=== PATIENT | male | born 1935 | race Caucasian/White ===

== ENCOUNTER 2016-07-09 14:55 | Inpatient (IN) | payer OTHER, BC ==
[2016-07-09 15:30] VITALS: BMI 35.2
[2016-07-09] MEDS ORDERED: VANCOMYCIN 1,000 MG in DEXTROSE 5%-WATER - 250 ML IVPB ONE (16:15)
[2016-07-09] MEDS ORDERED: PIPERACILLIN/TAZOB 3.375 GM/50 ML PRE-DOCKED IVPB ONE (16:15)
--- NOTE | 2016-07-09 16:18 | PDOC ---
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 The patient had had some ulcerations around [place] time but symptoms have worsened today as per nursing facility. Allergies: Latex, NKDA PCP: Dr. Callaway <Odalys Kendrick - Last Filed: 07/09/16 17:45> - General History Source: Spouse, Assisted Records, Old Records Exam Limitations: Clinical Condition <Allen Louis - Last Filed: 07/09/16 18:44> - General Chief Complaint: SIRS, Suspected/Possible Stated Complaint: BED SORE/INFECTION Time Seen by Provider: 07/09/16 16:05 Past History <Odalys Kendrick - Last Filed: 07/09/16 17:45> - Past Medical History Anemia: No Asthma: No Cancer: No Cardiac Disorders: Yes (AFib) CVA: Yes (right sided weakness) COPD: Yes CHF: No Dementia: Yes Diabetes: No GI Disorders: Yes (GI bleed) Disorders: Yes (UTI, hematuria) HTN: No Hypercholesterolemia: Yes Liver Disease: No Suicide Attempt (Hx): No Seizures: No Thyroid Disease: No Other medical history: trach vent dependent respitory failure - Surgical History Abdominal Surgery: Yes (RIGHT INGUINAL HERNIA REPAIR) Appendectomy: No Cardiac Surgery: No Cholecystectomy: No Lung Surgery: No Neurologic Surgery: No Orthopedic Surgery: Yes (lt knee replacement, pins in left hip) - Immunization History Td Vaccination: Yes Immunization Up to Date: Yes - Psycho/Social/Smoking Cessation Hx Anxiety: No Suicidal Ideation: No Smoking Status: No Smoking History: Unknown if ever smoked Years of Tobacco Use: 0 Have you smoked in the past 12 months: No Number of Cigarettes Smoked Daily: 0 If you are a former smoker, when did you quit?: 40 years ago Cigars Per Day: 0 Information on smoking cessation initiated: No 'Breaking Loose' booklet given: 06/15/15 Hx Alcohol Use: No Drug/Substance Use Hx: No Substance Use Type: None Hx Substance Use Treatment: No <Allen Louis - Last Filed: 07/09/16 18:44> - Past Medical History Allergies/Adverse Reactions: Allergies Allergy/AdvReac Type Severity Reaction Status Date / Time latex Allergy Verified 07/09/16 15:26 No Known Drug Allergies Allergy Verified 07/09/16 15:26 Home Medications: Ambulatory Orders Ferrous Sulfate 325 mg GT HS 02/27/15 Fludrocortisone Acetate [Florinef -] 0.1 mg GT BID 02/28/15 Acetaminophen [Tylenol .Regular Strength -] 650 mg NR Q4H PRN #0 tablet Scopolamine Hydrobromide [Transderm-Scop -] 1 patch TD Q72H patch.td72 Albuterol 2.5/Ipratropium 0.5 [Duoneb -] 1 neb IH QID 03/20/16 Ascorbic Acid [Vitamin C -] 500 mg GT DAILY 03/20/16 Carbidopa/Levodopa [Carbidopa-Levodopa 25-100 Tab] 1 each GT BID 03/20/16 Metoprolol Tartrate [Lopressor -] 12.5 mg GT TID tablet 03/27/16 Multivitamins [Tab-A-Vit -] 1 tab GT DAILY 04/30/16 Ranitidine [Zantac -] 150 mg GT BID 04/30/16 Furosemide Oral Solution [Lasix Oral Solution -] 40 mg GT BID@0600,1400 udc 01/18 Naph,Mb-Db/K pH,Mbdb [PHOS-NaK PACKET -] 1 packet PEG TID pow 05/12/16 Potassium Chloride Oral Soln [KCl Oral Solution -] 40 meq GT DAILY cup Aa/[place]/Arg/C/Zn/Cu [Lps Critical Care Liquid] 30 ml PO DAILY Donepezil HCl [Aricept -] 10 mg PO DAILY 07/09/16 Lactobacillus Acidophilus [Bacid -] 1 tab PO BID 07/09/16 Loperamide HCl [Loperamide] 2 mg PO Q6H PRN 07/09/16 Mirtazapine [Remeron Soltab -] 15 mg PO DAILY 07/09/16 Warfarin Na [Coumadin -] 7 mg PO DAILY@1800 07/09/16 Review of Systems - Review of Systems Able to Perform ROS?: No (nonverbal) <Odalys Kendrick - Last Filed: 07/09/16 17:45> *Physical Exam - Vital Signs Last Vital Signs Temp Pulse Resp BP Pulse Ox 96.2 F L 68 12 114/72 100 07/09/16 15:27 07/09/16 17:25 07/09/16 15:27 07/09/16 17:25 07/09/16 17:25 - Physical Exam Comments: 07/09/16 17:48 GENERAL: (+) Nonverbal at baseline. Awake and alert, in no acute distress HEAD: No signs of trauma EYES: PERRLA, EOMI, sclera anicteric, conjunctiva clear ENT: (+) Trach and peg Tube clean, dry, intact; Auricles normal inspection, hearing grossly normal, nares patent, Moist mucosa NECK: Normal ROM, supple, no lymphadenopathy, JVD, or masses LUNGS: Breath sounds equal, clear to auscultation bilaterally. No wheezes, and no crackles HEART: Regular rate and rhythm, normal S1 and S2, no murmurs, rubs or gallops ABDOMEN: Soft, nontender, normoactive bowel sounds. No guarding, no rebound. No masses EXTREMITIES: (+) 2+ bilateral lower extremity edema, trace +1 edema bilateral upper extremities; Normal range of motion. No clubbing or cyanosis. No cords, erythema, or tenderness NEUROLOGICAL: Cranial nerves II-XII intact. Normal speech, normal gait. Sensation intact in upper and lower extremities. 5/5 motor strength in upper and lower extremities. No pronator drift. Finger to nose intact. Rapid alternations intact. SKIN: (+) [id number] erythema with central ulceration to the left lateral foot. Warm, Dry, normal turgor, no rashes noted. <Odalys Kendrick - Last Filed: 07/09/16 17:45> - Vital Signs Last Vital Signs Temp Pulse Resp BP Pulse Ox 96.2 F L 66 12 110/64 100 07/09/16 15:27 07/09/16 15:27 07/09/16 15:27 07/09/16 15:27 07/09/16 15:27 <Allen Louis - Last Filed: 07/09/16 18:44> Heart Score/ECG Review #1 ECG reviewed & interpreted by me at: 15:55 07/09/16 16:59 NSR 55 with 1st degree AV block, T wave flat III, no std/tracy, normal axis, normal intervals, QTC 470 msec <Allen Louis - Last Filed: 07/09/16 18:44> ED Treatment Course - LABORATORY CBC & Chemistry Diagram: 07/09/16 16:16 07/09/16 16:16 - ADDITIONAL ORDERS Additional order review: Laboratory Results 07/09/16 07/09/16 07/09/16 16:16 16:16 16:16 INR PTT (Actin FS) Lactic Acid 1.006 C-Reactive Protein 1.5 H Urine Color Yellow Urine Appearance Slcloudy Urine pH 5.0 Ur Specific [place] 1.014 Urine Protein Negative Urine Glucose (UA) Negative Urine Ketones Trace H Urine Blood Negative Urine Nitrite Negative Urine Bilirubin Negative Urine Urobilinogen Negative Ur Leukocyte Esterase 3+ H Urine RBC 6 Urine WBC 71 Ur Epithelial Cells Rare Urine Bacteria Rare Hyaline Casts 3 Urine Yeast Few 07/09/16 16:16 INR 3.08 H D PTT (Actin FS) 44.5 H Lactic Acid C-Reactive Protein Urine Color Urine Appearance Urine pH Ur Specific [place] Urine Protein Urine Glucose (UA) Urine Ketones Urine Blood Urine Nitrite Urine Bilirubin Urine Urobilinogen Ur Leukocyte Esterase Urine RBC Urine WBC Ur Epithelial Cells Urine Bacteria Hyaline Casts Urine Yeast 07/09/16 16:16 RBC 4.17 MCV 93.5 MCHC 31.9 L RDW 14.8 D MPV 9.7 Neutrophils % 65.8 Lymphocytes % 21.4 Monocytes % 7.6 Eosinophils % 4.4 Basophils % 0.8 - Medications Given in the ED: ED Medications Discontinued Medications Generic Name Dose Route Start Last Admin Trade Name Freq PRN Reason Stop Dose Admin Vancomycin HCl 1,000 mg/ 250 mls @ 250 mls/hr 07/09/16 16:15 07/09/16 17:24 Dextrose IVPB 07/09/16 17:14 250 mls/hr ONCE ONE Administration Piperacillin Sod/Tazobactam Sod 3.375 gm 07/09/16 16:15 07/09/16 16:59 Zosyn 3.375gm Ivpb (Pre-Docked) IVPB 07/09/16 16:16 3.375 gm ONCE ONE Administration <ReannabassemOdalys - Last Filed: 07/09/16 17:45> - LABORATORY CBC & Chemistry Diagram: 07/09/16 16:16 07/09/16 16:16 - RADIOLOGY Radiology Studies Ordered: Category Date Time Status CHEST X-RAY PORTABLE* [RAD] Stat Radiology 07/09/16 16:12 Ordered <Allen Louis - Last Filed: 07/09/16 18:44> Medical Decision Making - Medical Decision Making 07/09/16 16:15 A portion of this note was documented by scribe services under my direction. I have reviewed the details of the note, within reason, and agree with the documentation with the following case summary and management plan written by me. Patient treated in the ED. Nursing notes are reviewed and incorporated into the medical decision-making. Vital signs reviewed. Peripheral IV access obtained by the nurse, laboratory studies are drawn and sent, reviewed and interpreted by myself. Vital Signs Temp Pulse Resp BP Pulse Ox 96.2 F L 66 12 110/64 100 07/09/16 15:27 07/09/16 15:27 07/09/16 15:27 07/09/16 15:27 07/09/16 15:27 81 year old male with past medical history of COPD with chronic respiratory failure status post tracheostomy, hyperlipidemia, coronary disease status post stroke with right-sided anaplasia, atrial fibrillation, dementia, Parkinson's [facility] from [facility] for [facility] line placement for a left foot infection - cellulitis (possible osteomyelitis). Patient had had some ulcerations around [place] time but symptoms have worsened. Patient was then sent to the ER for further workup. Adult sepsis protocol initiated. Vanc and zosyn ordered. Will admit the patient for further management. Pt noted to have a temp of 96.2 rectally. Placed on laverne hugger. 07/09/16 18:41 Chest x-ray reviewed. Interval better aeration of the left baseline with residual airspace disease, a small left and minimal right pleural effusion. CBC, BMP 07/09/16 16:16 07/09/16 16:16 CMP Sodium 141 mmol/L (136-145) 07/09/16 16:16 Potassium 3.5 mmol/L (3.5-5.1) 07/09/16 16:16 Chloride 101 mmol/L (98-107) 07/09/16 16:16 Carbon Dioxide 32 mmol/L (21-32) 07/09/16 16:16 Anion Gap 8 (8-16) 07/09/16 16:16 BUN 24 mg/dL (7-18) H D 07/09/16 16:16 Creatinine 0.5 mg/dL (0.7-1.3) L D 07/09/16 16:16 Creat Clearance w eGFR > 60 (>60) 07/09/16 16:16 Random Glucose 98 mg/dL (74-106) 07/09/16 16:16 Lactic Acid 1.006 mmol/L (0.4-2.0) 07/09/16 16:16 Calcium 8.0 mg/dL (8.5-10.1) L 07/09/16 16:16 Total Bilirubin 0.5 mg/dL (0.2-1.0) D 07/09/16 16:16 AST 22 U/L (15-37) D 07/09/16 16:16 ALT 7 U/L (12-78) L D 07/09/16 16:16 Alkaline Phosphatase 82 U/L (45-117) D 07/09/16 16:16 Creatine Kinase 17 IU/L (39-308) L 07/09/16 16:16 Troponin I < 0.02 ng/ml (0.00-0.05) D 07/09/16 16:16 C-Reactive Protein 1.5 MG/DL (0.00-0.3) H 07/09/16 16:16 Total Protein 7.2 g/dl (6.4-8.2) D 07/09/16 16:16 Albumin 2.5 g/dl (3.4-5.0) L D 07/09/16 16:16 Urine Test Results Urine Color Yellow 07/09/16 16:16 Urine Appearance Slcloudy 07/09/16 16:16 Urine pH 5.0 (5.0-8.0) 07/09/16 16:16 Ur Specific [place] 1.014 (1.001-1.035) 07/09/16 16:16 Urine Protein Negative (NEGATIVE) 07/09/16 16:16 Urine Glucose (UA) Negative (NEGATIVE) 07/09/16 16:16 Urine Ketones Trace (NEGATIVE) H 07/09/16 16:16 Urine Blood Negative (NEGATIVE) 07/09/16 16:16 Urine Nitrite Negative (NEGATIVE) 07/09/16 16:16 Urine Bilirubin Negative (NEGATIVE) 07/09/16 16:16 Ur Leukocyte Esterase 3+ (NEGATIVE) H 07/09/16 16:16 Urine RBC 6 /hpf (0-3) 07/09/16 16:16 Urine WBC 71 /hpf (3-5) 07/09/16 16:16 Ur Epithelial Cells Rare /hpf (FEW) 07/09/16 16:16 Urine Bacteria Rare /hpf (NONE SEEN) 07/09/16 16:16 Labs reviewed. Trop negative. UA positive for infection. Microbiology reviewed. Pt received vanc and zosyn. Case discussed with Dr. Rodriguez who requests Dr. Jenkins's group given pt is from [facility]. Case discussed with Dr. Jenkins who accepts the patient to med/surg vent unit. Case discussed in detail with admitting physician including history, physical exam and ancillary studies. Admitting physician has assumed care for the patient, will follow all pending diagnostics and will complete the evaluation and treatment. <Allen Louis - Last Filed: 07/09/16 18:44> *DC/Admit/Observation/Transfer - Attestations Scribe Attestion: 07/09/16 17:50 Documentation prepared by Odalys Kendrick, acting as medical geneticist for Allen Louis MD, MD <Odalys Kendrick - Last Filed: 07/09/16 17:45> - Discharge Dispostion Admit: Yes <Allen Louis - Last Filed: 07/09/16 18:44> Diagnosis at time of Disposition: Foot infection UTI (urinary tract infection) Qualifiers: Urinary tract infection type: site unspecified Hematuria presence: without hematuria Qualified Code(s): N39.0 - Urinary tract infection, site not specified - Discharge Dispostion Condition at time of disposition: Stable - Referrals Referrals: Jerzy Callaway MD [Primary Care Provider] -
[2016-07-09 16:32] LABS: BASOPHIL 0.8 % (0-2.0); EOSINOPHIL 4.4 % (0-4.5); MCH 29.8 pg (25.7-33.7); MCHC 31.9 g/dl (32.0-35.9); MEAN CELL VOLUME 93.5 fl (80-96); MEAN PLT VOLUME 9.7 fl (7.5-11.1); NEUTROPHILS 65.8 % (42.8-82.8); PLATELET COUNT 295 K/MM3 (134-434); RDW 14.8 % (11.9-15.9); WHITE BLOOD COUNT 10.3 K/mm3 (4.0-10.0)
[2016-07-09 16:44] LABS: INR 3.08 (0.82-1.09); PROTHROMBIN TIME (PATIENT) 34.7 SEC (9.98-11.88)
[2016-07-09 16:47] LABS: ACTIVATED PTT 44.5 SECONDS (26.9-34.4)
[2016-07-09] MEDS ORDERED: PIPERACILLIN/TAZOB 3.375 GM 50 ML IVPB ONE (16:53)
[2016-07-09] MEDS ORDERED: VANCOMYCIN 1 GRAM (PRE-DOCKED) 250 ML IVPB ONE (16:53)
[2016-07-09 17:24] LABS: URINE APPEARANCE SLCLOUDY; URINE BILIRUBIN NEGATIVE (NEGATIVE); URINE BLOOD NEGATIVE (NEGATIVE); URINE COLOR YELLOW; URINE GLUCOSE (UA) NEGATIVE (NEGATIVE); URINE KETONE TRACE (NEGATIVE); URINE NITRITE NEGATIVE (NEGATIVE); URINE PROTEIN NEGATIVE (NEGATIVE); URINE UROBILINOGEN NEGATIVE E.U./dl (0.2-1.0)
[2016-07-09 17:28] LABS: URINE LEUK ESTERASE 3+ (NEGATIVE)
[2016-07-09 17:30] LABS: URINE BACTERIA RARE /hpf (NONE SEEN); URINE HYALINE CAST 3 /lpf; URINE RBC 6 /hpf (0-3); URINE WBC 71 /hpf (3-5); YEAST FEW
[2016-07-09] MEDS ORDERED: CARBIDOPA/LEVODOPA 25/100 TABLET (FP) PEG ONE (17:34)
[2016-07-09 18:30] LABS: ALBUMIN 2.5 g/dl (3.4-5.0); ANION GAP 8 (8-16); BILIRUBIN,TOTAL 0.5 mg/dL (0.2-1.0); CO2 32 mmol/L (21-32); CREATININE 0.5 mg/dL (0.7-1.3); GLUCOSE,RANDOM 98 mg/dL (74-106); SGOT/AST 22 U/L (15-37); SGPT/ALT 7 U/L (12-78); TOT PROT 7.2 g/dl (6.4-8.2)
[2016-07-09 18:34] LABS: ALK PHOS 82 U/L (45-117); TROPONIN I < 0.02 ng/ml (0.00-0.05)
[2016-07-09] MEDS ORDERED: LOPERAMIDE HCL 2 MG CAPSULE PO PRN (19:42)
[2016-07-09] MEDS ORDERED: ACETAMINOPHEN 325 MG TABLET (FP) NR PRN (19:42)
[2016-07-09] MEDS ORDERED: LOPERAMIDE HCL 2 MG CAPSULE GT PRN (19:54)
[2016-07-09] MEDS: CARBIDOPA/LEVODOPA 25/100 TABLET (FP) GT SCH (22:49)
[2016-07-09] MEDS: FLUDROCORTISONE ACETATE 0.1 MG TABLET (FP) GT SCH (23:00)
[2016-07-09] MEDS: FERROUS SO4 300 MG/5 ML ORAL SOLN UNIT DOSE CUPS GT SCH (23:00)
[2016-07-09] MEDS: METOPROLOL TARTRATE 25 MG TABLET (FP) GT SCH (23:00)
[2016-07-09] MEDS: LACTOBACILLUS ACIDOPHILUS 1 EACH TAB (FP) GT SCH (23:00)
[2016-07-09] MEDS: RANITIDINE HCL 150 MG TABLET (FP) PO SCH (23:00)
[2016-07-09] MEDS: NAPH,MB-DB/K PH,MBDB POWDER PACKET PEG SCH (23:00)
[2016-07-09] MEDS: SCOPOLAMINE HYDROBROMIDE 1 PATCH PATCH.TD72 TD SCH (23:02)
[2016-07-10] MEDS: ALBUTEROL SO4 2.5/IPRATROPIUM 0.5 INH SOL 3 ML VIAL.NEB. NEB SCH ×5 (00:11→23:21)
[2016-07-10] MEDS ORDERED: PIPERACILLIN/TAZOB 3.375 GM/50 ML PRE-DOCKED IVPB SCH (02:00)
[2016-07-10] MEDS: PIPERACILLIN/TAZOB 3.375 GM/50 ML PRE-DOCKED IVPB SCH ×2 (02:50→09:45)
[2016-07-10] MEDS ORDERED: PT OWN MED DRAWER 7, Y5N ONE ×4 (06:06→22:52)
[2016-07-10] MEDS: NAPH,MB-DB/K PH,MBDB POWDER PACKET PEG SCH ×3 (06:49→22:35)
[2016-07-10] MEDS: FUROSEMIDE 40 MG/5 ML UNIT-DOSE CUP GT SCH ×2 (06:56→15:05)
[2016-07-10] MEDS: METOPROLOL TARTRATE 25 MG TABLET (FP) GT SCH ×3 (06:56→22:35)
--- NOTE | 2016-07-10 08:10 | CONSULT ---
Consultation: REQUESTING PROVIDER: CONSULT REQUEST: We have been asked to medically evaluate this patient for osteomyelitis. HISTORY OF PRESENT ILLNESS: Unable to obtain history from the patient, hence obtained from the chart. 81 year old male was brought in from the long term for PICC line placement to treat possible osteomyelitis of the left foot. Since [employer], patient developed ulceration but it worsened since yesterday and was brought in. Past Medical Hx: COPD with chronic respiratory distress s/p trach, hyperlipidemia, CAD, CVA with right sided hemiplegia, atrial fibrillation, dementia, and parkinsonism Allergies: Latex Surgical Hx: Right Inguinal Hernia repair, Joint replacement (Pins in left hip) , Tracheostomy Hospitalization: Multiple times admission for multiple cause at [facility]. Last admission was on 04/30/2016 for Sepsis secondary to UTI. Social Hx: left smoking 50 years ago Lives in a long term PCP: Dr. Callaway REVIEW OF SYSTEMS: Couldn't be obtained as he is non verbal. PHYSICAL EXAMINATION Vital Signs - 24 hr 07/09/16 07/09/16 07/10/16 21:14 23:37 00:53 Temperature Pulse Rate Pulse Rate [ 70 68 Apical] Respiratory 14 Rate Blood Pressure Blood Pressure 115/60 123/70 [Right Arm] O2 Sat by Pulse 97 98 Oximetry (%) 07/10/16 07/10/16 07/10/16 01:29 03:10 06:00 Temperature 97.1 F L 99.7 F H Pulse Rate 82 81 Pulse Rate [ Apical] Respiratory 14 16 16 Rate Blood Pressure 136/72 139/78 Blood Pressure [Right Arm] O2 Sat by Pulse 98 Oximetry (%) 07/10/16 07:15 Temperature Pulse Rate Pulse Rate [ Apical] Respiratory 12 Rate Blood Pressure Blood Pressure [Right Arm] O2 Sat by Pulse Oximetry (%) GENERAL: Awake, non verbal, doesn't follow all the commands, tracheostomy in place, bauman catheter in place, A/C 12/400/40/5 HEAD: Normal with no signs of trauma. EYES: Pupils equal, round and reactive to light. EARS, NOSE, THROAT: Ears normal NECK: No JVD LUNGS: Breath sounds equal, clear to auscultation bilaterally. No wheeze noted. HEART: Irregularly irregular, tachycardia, S1 and S2 heard, murmur couldn't be appreciated. ABDOMEN: Tube near the umbilicus intact, Soft, nontender, not distended, normoactive bowel sounds, no guarding, no rebound, no masses. No hepatomegaly or splenomegaly. MUSCULOSKELETAL: Stiff during range of motion. UPPER EXTREMITIES: 2+ pulses, warm, well-perfused. Edema + LOWER EXTREMITIES: [id number] black central lesion at the lateral surface of left foot, 2+ pulses, warm, well-perfused. B/L pitting edema, chronic venous stasis. NEUROLOGICAL: Awake, non communicative. Decubiti ulcer: Left Buttock 4cm x 6 cm with opening; Right buttock 3cm x 4 cm with opening, Left lateral foot-4x3cm. PSYCHIATRIC: No eye contact. SKIN: Warm, dry, normal turgor, no rashes or lesions noted. Laboratory Results - last 24 hr 07/10/16 07:03 POC Glucometer 129 Active Medications Generic Name Dose Route Start Last Admin Trade Name Freq PRN Reason Stop Dose Admin Acetaminophen 650 mg 07/09/16 19:42 Tylenol - NR Q4H PRN PAIN 6-10 Albuterol/Ipratropium 1 amp 07/10/16 00:00 07/10/16 06:23 Duoneb - NEB 1 amp QIDR EMMANUEL Administration Ascorbic Acid 500 mg 07/10/16 10:00 Vitamin C - GT DAILY EMMANUEL Carbidopa/Levodopa 1 each 07/09/16 22:00 07/09/16 22:49 Sinemet 25/100 - GT Not Given BID EMMANUEL Donepezil HCl 10 mg 07/10/16 10:00 Aricept - GT DAILY EMMANUEL Ferrous Sulfate 300 mg 07/09/16 22:00 07/09/16 23:00 Feosol GT 300 mg HS EMMANUEL Administration Fludrocortisone Acetate 0.1 mg 07/09/16 22:00 07/09/16 23:00 Florinef - GT 0.1 mg BID EMAMNUEL Administration Furosemide 40 mg 07/10/16 06:00 07/10/16 06:56 Lasix Oral Solution - GT 40 mg BID@0600,1400 EMMANUEL Administration Lactobacillus Acidophilus 1 tab 07/09/16 22:00 07/09/16 23:00 Bacid - GT 1 tab BID EMMANUEL Administration Loperamide HCl 2 mg 07/09/16 19:54 Imodium - GT Q6H PRN DIARRHEA Metoprolol Tartrate 12.5 mg 07/09/16 22:00 07/10/16 06:56 Lopressor - GT 12.5 mg TID EMMANUEL Administration Mirtazapine 15 mg 07/10/16 22:00 Remeron - GT HS EMMANUEL Multivitamins/Minerals/Vitamin C 1 tab 07/10/16 10:00 Tab-A-Vit - PO DAILY EMMANUEL Piperacillin Sod/Tazobactam Sod 3.375 gm 07/10/16 02:00 Zosyn 3.375gm Ivpb (Pre-Docked) IVPB Q8H-IV EMMANUEL Piperacillin Sod/Tazobactam Sod 3.375 gm 07/10/16 02:00 07/10/16 02:50 Zosyn 3.375gm Ivpb (Pre-Docked) IVPB 07/10/16 10:01 3.375 gm Q8H-IV EMMANUEL Administration Potassium Chloride 40 meq 07/10/16 10:00 Kcl Oral Solution - GT DAILY EMMANUEL Potassium Phos/Sodium Phos 1 packet 07/09/16 22:00 07/10/16 06:49 Phos-Nak Packet - PEG 1 packet TID EMMANUEL Administration Ranitidine HCl 150 mg 07/09/16 22:00 07/09/16 23:00 Zantac - PO 150 mg BID EMMANUEL Administration Scopolamine HBr 1 patch 07/09/16 22:00 07/09/16 23:02 Transderm-Scop - TD 1 patch Q72H EMMANUEL Administration Warfarin Sodium 5 mg 07/11/16 18:00 Coumadin - PO DAILY@1800 EMMANUEL ASSESSMENT/PLAN: 81 year old male with significant past medical hx of COPD with chronic respiratory distress s/p trach, hyperlipidemia, CAD, CVA with right sided hemiplegia, atrial fibrillation, dementia, and parkinsonism was brought in from the long term for PICC line placement to treat possible osteomyelitis of the left foot. # Possible osteomyelitis of left foot On Examination: left foot [id number] black central lesion at the lateral surface of left foot Tem-99 F One dose of Vancomycin and Zosyn given in the ED. IV Zosyn and Vancomycin to be continued Vascular surgery consult appreciated. Previously patient has been positive for: Acinetobacter/Beta Lactam Step- Proteus mirabilis/E. faecalis- 03/20/2016 Pseudomonas 2015. Case seen and discussed with Dr. Parker. Thank you for the consultative opportunity. Visit type - Emergency Visit Emergency Visit: Yes ED Registration Date: 07/09/16 Care time: The patient presented to the Emergency Department on the above date and was hospitalized for further evaluation of their emergent condition. - New Patient This patient is new to me today: Yes Date on this admission: 07/10/16 - Critical Care Critical Care patient: No
[2016-07-10 08:24] LABS: BASOPHIL 0.6 % (0-2.0); EOSINOPHIL 3.1 % (0-4.5); MCH 30.9 pg (25.7-33.7); MCHC 33.2 g/dl (32.0-35.9); MEAN CELL VOLUME 93.1 fl (80-96); MEAN PLT VOLUME 9.5 fl (7.5-11.1); NEUTROPHILS 74.9 % (42.8-82.8); PLATELET COUNT 268 K/MM3 (134-434); RDW 14.4 % (11.9-15.9); WHITE BLOOD COUNT 13.9 K/mm3 (4.0-10.0)
[2016-07-10 08:53] LABS: PROTHROMBIN TIME (PATIENT) 33.7 SEC (9.98-11.88)
[2016-07-10 09:09] LABS: ALBUMIN 2.3 g/dl (3.4-5.0); ALK PHOS 77 U/L (45-117); ANION GAP 7 (8-16); BILIRUBIN,TOTAL 0.5 mg/dL (0.2-1.0); CALCIUM 8.4 mg/dL (8.5-10.1); CO2 34 mmol/L (21-32); CREATININE 0.6 mg/dL (0.7-1.3); GLUCOSE,RANDOM 124 mg/dL (74-106); MAGNESIUM 2.2 mg/dL (1.8-2.4); SGOT/AST 20 U/L (15-37); SGPT/ALT 14 U/L (12-78); TOT PROT 6.6 g/dl (6.4-8.2)
[2016-07-10] MEDS: FLUDROCORTISONE ACETATE 0.1 MG TABLET (FP) GT SCH ×2 (09:30→22:34)
[2016-07-10] MEDS: CARBIDOPA/LEVODOPA 25/100 TABLET (FP) GT SCH ×2 (09:31→22:35)
[2016-07-10] MEDS: RANITIDINE HCL 150 MG TABLET (FP) PO SCH ×2 (09:31→22:35)
[2016-07-10] MEDS: DONEPEZIL HCL 10 MG TABLET (FP) GT SCH (09:31)
[2016-07-10] MEDS: LACTOBACILLUS ACIDOPHILUS 1 EACH TAB (FP) GT SCH ×2 (09:32→22:34)
[2016-07-10] MEDS: ASCORBIC ACID 500 MG TABLET (FP) GT SCH (09:35)
[2016-07-10] MEDS: MULTIVITAMINS (DAILY MVI) TABLET (FP) PO SCH (09:35)
[2016-07-10] MEDS ORDERED: POTASSIUM CHLORIDE 40 MEQ/30 ML UNIT DOSE CUP GT SCH ×2 (10:00→12:37)
--- NOTE | 2016-07-10 11:47 | PN ---
Progress Note (short form) - Note Progress Note: Vascular Surgery Pt seen and examined. Well known from [facility]. Has a left plantar ulcer for over 6 months. Has been on santyl but is not getting better. The wound probes down to bone. Could be osteomyleltis. Can empirically treat via picc for 6 weeks for osteo. Will await ID imput. Gutierrez Rosario DO
[2016-07-10] MEDS: COLLAGENASE CLOSTRIDIUM HIST. 30 GRAMS TUBE TP SCH ×2 (12:00→17:45)
--- NOTE | 2016-07-10 12:36 | HP ---
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 The patient had had some ulcerations around [place] time but symptoms have worsened today as per nursing facility. Allergies: Latex, NKDA PCP: Dr. 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, Parkinson's Cardiovascular: Yes: AFIB, CAD, Hyperlipdemia Pulmonary: Yes: COPD Gastrointestinal: Yes: GI Bleed Renal/: Yes: BPH Heme/Onc: Yes: Other (DVT s/p Filter) Infectious Disease: Yes: Other (, aspiration pneumonia in the past) Musculoskeletal: Yes: Hemiplegia - Past Surgical History Past Surgical History: Yes: Hernia Repair (right inguinal hernia repair), Joint Replacement (pins in left hip) - Smoking History Smoking history: Unknown if ever smoked Have you smoked in the past 12 months: No Aproximately how many cigarettes per day: 0 If you are a former smoker, when did you quit?: 40 years ago - Alcohol/Substance Use Hx Alcohol Use: No - Social History ADL: Support Services (has home health aid) 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 History of Recent Travel: No Home Medications - Allergies Allergies/Adverse Reactions: Allergies Allergy/AdvReac Type Severity Reaction Status Date / Time latex Allergy Verified 07/09/16 15:26 No Known Drug Allergies Allergy Verified 07/09/16 15:26 - Home Medications Home Medications: Ambulatory Orders Ferrous Sulfate 325 mg GT HS 02/27/15 Fludrocortisone Acetate [Florinef -] 0.1 mg GT BID 02/28/15 Acetaminophen [Tylenol .Regular Strength -] 650 mg NR Q4H PRN #0 tablet Scopolamine Hydrobromide [Transderm-Scop -] 1 patch TD Q72H patch.td72 Albuterol 2.5/Ipratropium 0.5 [Duoneb -] 1 neb IH QID 03/20/16 Ascorbic Acid [Vitamin C -] 500 mg GT DAILY 03/20/16 Carbidopa/Levodopa [Carbidopa-Levodopa 25-100 Tab] 1 each GT BID 03/20/16 Metoprolol Tartrate [Lopressor -] 12.5 mg GT TID tablet 03/27/16 Multivitamins [Tab-A-Vit -] 1 tab GT DAILY 04/30/16 Ranitidine [Zantac -] 150 mg GT BID 04/30/16 Furosemide Oral Solution [Lasix Oral Solution -] 40 mg GT BID@0600,1400 udc 01/18 Naph,Mb-Db/K pH,Mbdb [PHOS-NaK PACKET -] 1 packet PEG TID pow 05/12/16 Potassium Chloride Oral Soln [KCl Oral Solution -] 40 meq GT DAILY cup Aa/[place] Shar&[place]/Arg/C/Zn/Cu [Lps Critical Care Liquid] 30 ml PO DAILY Donepezil HCl [Aricept -] 10 mg PO DAILY 07/09/16 Lactobacillus Acidophilus [Bacid -] 1 tab PO BID 07/09/16 Loperamide HCl [Loperamide] 2 mg PO Q6H PRN 07/09/16 Mirtazapine [Remeron Soltab -] 15 mg PO DAILY 07/09/16 Warfarin Na [Coumadin -] 7 mg PO DAILY@1800 07/09/16 Review of Systems Unable to obtain ROS, reason: nonverbal Physical Examination Vital Signs: Vital Signs Temperature 99 F 07/10/16 09:00 Pulse Rate 75 07/10/16 10:39 Respiratory Rate 12 07/10/16 10:39 Blood Pressure 104/65 07/10/16 09:00 O2 Sat by Pulse Oximetry (%) 97 07/10/16 10:39 Constitutional: Yes: Calm Neck: Yes: Trachea Midline Cardiovascular: Yes: Regular Rate and Rhythm, S1, S2 Respiratory: Yes: Diminished, Mechanically Ventilated Gastrointestinal: Yes: Normal Bowel Sounds, Soft, Other (g tube) Renal/: Yes: Olson Present Wound/Incision: Yes: Other (left foot wound) Neurological: Yes: Other (no verbal) Labs: CBC, BMP 07/10/16 06:45 07/10/16 06:45 Imaging - Results Chest X-ray: Report Reviewed Problem List - Problems (1) Foot ulcer Assessment/Plan: seen by wound care team iv abx possible six weeks picc line check ESR ad CRP ID eval wound culture Code(s): L97.509 - NON-PRESSURE CHRONIC ULCER OTH PRT UNSP FOOT W UNSP SEVERITY (2) Foot infection Assessment/Plan: see above Code(s): L08.9 - LOCAL INFECTION OF THE SKIN AND SUBCUTANEOUS TISSUE, UNSP (3) Chronic respiratory failure Assessment/Plan: vent support Code(s): J96.10 - CHRONIC RESPIRATORY FAILURE, UNSP W HYPOXIA OR HYPERCAPNIA Qualifiers: Respiratory failure complication: hypoxia Qualified Code(s): J96.11 - Chronic respiratory failure with hypoxia (4) Dysphagia Assessment/Plan: feeding via peg Code(s): R13.10 - DYSPHAGIA, UNSPECIFIED (5) A-fib Code(s): I48.91 - UNSPECIFIED ATRIAL FIBRILLATION Qualifiers: Atrial fibrillation type: chronic Qualified Code(s): I48.2 - Chronic atrial fibrillation
--- NOTE | 2016-07-10 14:00 | CONSULT ---
Consult Consult Specialty:: PULM/CCM Referred by:: SALUD Reason for Consultation:: Chronic respiratory failure - History of Present Illness Chief Complaint: fever History of Present Illness: 81 M, Chronic respiratory failure s/p tracheostomy, hyperlipidemia, coronary disease, COPD , s/p CVA with right-sided weakness, atrial fibrillation, dementia , and Parkinson's. Admitted via the ER due for further left foot infection. Patient is on chronic respiratory support. He is currently on AC mode of vent 40% FiO2. Saturation is 97%. 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: 40 years ago - Social History Usual Living Arrangement: Jail ADL: Support Services (has home health aid) 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 History of Recent Travel: No Home Medications - Allergies Allergies/Adverse Reactions: Allergies Allergy/AdvReac Type Severity Reaction Status Date / Time latex Allergy Verified 07/09/16 15:26 No Known Drug Allergies Allergy Verified 07/09/16 15:26 - Home Medications Home Medications: Ambulatory Orders Ferrous Sulfate 325 mg GT HS 02/27/15 Fludrocortisone Acetate [Florinef -] 0.1 mg GT BID 02/28/15 Acetaminophen [Tylenol .Regular Strength -] 650 mg NR Q4H PRN #0 tablet Scopolamine Hydrobromide [Transderm-Scop -] 1 patch TD Q72H patch.td72 Albuterol 2.5/Ipratropium 0.5 [Duoneb -] 1 neb IH QID 03/20/16 Ascorbic Acid [Vitamin C -] 500 mg GT DAILY 03/20/16 Carbidopa/Levodopa [Carbidopa-Levodopa 25-100 Tab] 1 each GT BID 03/20/16 Metoprolol Tartrate [Lopressor -] 12.5 mg GT TID tablet 03/27/16 Multivitamins [Tab-A-Vit -] 1 tab GT DAILY 04/30/16 Ranitidine [Zantac -] 150 mg GT BID 04/30/16 Furosemide Oral Solution [Lasix Oral Solution -] 40 mg GT BID@0600,1400 udc 01/18 Naph,Mb-Db/K pH,Mbdb [PHOS-NaK PACKET -] 1 packet PEG TID pow 05/12/16 Potassium Chloride Oral Soln [KCl Oral Solution -] 40 meq GT DAILY cup Aa/[place]/Arg/C/Zn/Cu [Lps Critical Care Liquid] 30 ml PO DAILY Donepezil HCl [Aricept -] 10 mg PO DAILY 07/09/16 Lactobacillus Acidophilus [Bacid -] 1 tab PO BID 07/09/16 Loperamide HCl [Loperamide] 2 mg PO Q6H PRN 07/09/16 Mirtazapine [Remeron Soltab -] 15 mg PO DAILY 07/09/16 Warfarin Na [Coumadin -] 7 mg PO DAILY@1800 07/09/16 Review of Systems Unable to obtain ROS, reason: not able to provide Physical Exam Vital Sings: Vital Signs Temperature 99 F 07/10/16 09:00 Pulse Rate 75 07/10/16 10:39 Respiratory Rate 12 07/10/16 10:39 Blood Pressure 104/65 07/10/16 09:00 O2 Sat by Pulse Oximetry (%) 97 07/10/16 10:39 Constitutional: Yes: No Distress, Other (vented) Eyes: Yes: Conjunctiva Clear, EOM Intact HENT: Yes: Atraumatic Neck: Yes: Trachea Midline, Other (Trached ) Cardiovascular: Yes: Pulse Irregular Respiratory: Yes: Diminished, Dullness, Mechanically Ventilated. No: Accessory Muscle Use, Rales, Stridor, Wheezes ...Inspection: Yes: WNL ...Clubbing: No Gastrointestinal: Yes: Normal Bowel Sounds, Soft Musculoskeletal: Yes: WNL Extremities: Yes: Other (LLL ulcer) Edema: Yes Peripheral Pulses WNL: Yes Integumentary: Yes: Pressure Ulcer, Venous Stasis Changes Neurological: Yes: Other (non-verbal) Labs: CBC, BMP 07/10/16 06:45 07/10/16 06:45 Imaging - Results Chest X-ray: Report Reviewed, Image Reviewed Problem List - Problems (1) Chronic osteomyelitis Code(s): M86.60 - OTHER CHRONIC OSTEOMYELITIS, UNSPECIFIED SITE (2) Foot infection Code(s): L08.9 - LOCAL INFECTION OF THE SKIN AND SUBCUTANEOUS TISSUE, UNSP (3) Foot ulcer Code(s): L97.509 - NON-PRESSURE CHRONIC ULCER OTH PRT UNSP FOOT W UNSP SEVERITY (4) A-fib Code(s): I48.91 - UNSPECIFIED ATRIAL FIBRILLATION Qualifiers: Atrial fibrillation type: chronic Qualified Code(s): I48.2 - Chronic atrial fibrillation (5) CHF (congestive heart failure) Code(s): I50.9 - HEART FAILURE, UNSPECIFIED (6) Chronic atrial fibrillation Code(s): I48.2 - CHRONIC ATRIAL FIBRILLATION (7) Chronic respiratory failure Code(s): J96.10 - CHRONIC RESPIRATORY FAILURE, UNSP W HYPOXIA OR HYPERCAPNIA Qualifiers: Respiratory failure complication: hypoxia Qualified Code(s): J96.11 - Chronic respiratory failure with hypoxia (8) Dementia Code(s): F03.90 - UNSPECIFIED DEMENTIA WITHOUT BEHAVIORAL DISTURBANCE Qualifiers: Dementia type: Parkinson's disease Dementia behavioral disturbance: with behavioral disturbance Qualified Code(s): G20 - Parkinson's disease; F02.81 - Dementia in other diseases classified elsewhere with behavioral disturbance (9) Hyperlipemia Code(s): E78.5 - HYPERLIPIDEMIA, UNSPECIFIED (10) Leg swelling Code(s): M79.89 - OTHER SPECIFIED SOFT TISSUE DISORDERS (11) Parkinson disease Code(s): G20 - PARKINSON'S DISEASE (12) Pressure ulcer Code(s): L89.90 - PRESSURE ULCER OF UNSPECIFIED SITE, UNSPECIFIED STAGE Qualifiers: Pressure ulcer stage: stage II Qualified Code(s): L89.92 - Pressure ulcer of unspecified site, stage 2 (13) Venous insufficiency Code(s): I87.2 - VENOUS INSUFFICIENCY (CHRONIC) (PERIPHERAL) (14) Ventilator dependent Code(s): Z99.11 - DEPENDENCE ON RESPIRATOR [VENTILATOR] STATUS (15) Pleural effusion Code(s): J90 - PLEURAL EFFUSION, NOT ELSEWHERE CLASSIFIED Assessment/Plan PLAN: AC Mode of vent 40% FiO2 Wound care per surgery ABX Per ID Not a candidate for wean VTE prophylaxis Will follow Thank you. Dr Fernandes
--- NOTE | 2016-07-10 14:07 | PN ---
Progress Note (short form) - Note Progress Note: ID Full noted dictated and reviewed with housestaff Selected Entries 07/10/16 07/10/16 09:00 10:39 Temperature 99 F Pulse Rate 75 Respiratory 12 Rate Blood Pressure 104/65 Plantar ulcer probed down to bone necrotic eschar Microbiology Laboratory Tests 07/09/16 07/10/16 07/10/16 16:10 06:45 06:45 WBC 13.9 H D Hgb 12.3 Plt Count 268 ESR 72 H BUN 21 H Creatinine 0.6 L Creat Clearance w eGFR > 60 Assessment Chronic osteomyelitis down to bone Plan Will start IV antibiotics Vanco and Zosyn CRP Xray foot [address] Rosario to "unroof" necrotic eschar and deep wound culture Keith KHAN Problem List - Problems (1) Chronic osteomyelitis Code(s): M86.60 - OTHER CHRONIC OSTEOMYELITIS, UNSPECIFIED SITE
[2016-07-10] MEDS: VANCOMYCIN 1,500 MG in DEXTROSE 5%-WATER - 500 ML IVPB SCH ×2 (16:00→18:35)
--- NOTE | 2016-07-10 16:33 | EKG ---
Test Reason : Blood Pressure : / mmHG Vent. Rate : 055 BPM Atrial Rate : 055 BPM P-R Int : 242 ms QRS Dur : 102 ms QT Int : 492 ms P-R-T Axes : 058 028 023 degrees QTc Int : 470 ms SINUS BRADYCARDIA WITH 1ST DEGREE A-V BLOCK OTHERWISE NORMAL ECG WHEN COMPARED WITH ECG OF 01-MAY-2016 09:31, SINUS RHYTHM HAS REPLACED ATRIAL FIBRILLATION VENT. RATE HAS DECREASED BY 60 BPM NON-SPECIFIC CHANGE IN ST SEGMENT IN LATERAL LEADS NONSPECIFIC T WAVE ABNORMALITY, IMPROVED IN INFERIOR LEADS NONSPECIFIC T WAVE ABNORMALITY NO LONGER EVIDENT IN ANTEROLATERAL LEADS Confirmed by REGINA SANDERSON MD ([id number]) on 07/10/2016 4:32:39 PM Referred By: Confirmed By:REGINA SANDERSON MD
[2016-07-10] MEDS: PIPERACILLIN/TAZOB 4.5 GM/100 ML PRE-DOCKED IVPB SCH (17:12)
[2016-07-10] MEDS: FERROUS SO4 300 MG/5 ML ORAL SOLN UNIT DOSE CUPS GT SCH (22:34)
[2016-07-10] MEDS: MIRTAZAPINE 15 MG TABLET (FP) GT SCH (22:35)
[2016-07-11] MEDS: PIPERACILLIN/TAZOB 4.5 GM/100 ML PRE-DOCKED IVPB SCH ×3 (01:52→18:26)
[2016-07-11] MEDS: ALBUTEROL SO4 2.5/IPRATROPIUM 0.5 INH SOL 3 ML VIAL.NEB. NEB SCH ×4 (06:48→23:30)
[2016-07-11] MEDS ORDERED: PT OWN MED DRAWER 7, Y5N ONE ×7 (06:59→23:07)
[2016-07-11] MEDS: METOPROLOL TARTRATE 25 MG TABLET (FP) GT SCH ×3 (07:00→23:35)
[2016-07-11] MEDS: FUROSEMIDE 40 MG/5 ML UNIT-DOSE CUP GT SCH ×2 (07:00→14:28)
[2016-07-11] MEDS: NAPH,MB-DB/K PH,MBDB POWDER PACKET PEG SCH ×3 (07:00→23:04)
[2016-07-11 07:47] LABS: BASOPHIL 0.6 % (0-2.0); EOSINOPHIL 6.5 % (0-4.5); MCH 31.2 pg (25.7-33.7); MCHC 33.7 g/dl (32.0-35.9); MEAN CELL VOLUME 92.5 fl (80-96); MEAN PLT VOLUME 9.5 fl (7.5-11.1); NEUTROPHILS 58.1 % (42.8-82.8); PLATELET COUNT 231 K/MM3 (134-434); RDW 14.5 % (11.9-15.9); WHITE BLOOD COUNT 10.5 K/mm3 (4.0-10.0)
[2016-07-11 07:49] LABS: INR 3.27 (0.82-1.09); PROTHROMBIN TIME (PATIENT) 36.9 SEC (9.98-11.88)
[2016-07-11 08:31] LABS: BILIRUBIN,TOTAL 0.4 mg/dL (0.2-1.0); CREATININE 0.6 mg/dL (0.7-1.3); GLUCOSE,RANDOM 101 mg/dL (74-106); TOT PROT 6.2 g/dl (6.4-8.2)
[2016-07-11 08:32] LABS: CALCIUM 7.8 mg/dL (8.5-10.1)
[2016-07-11 08:54] LABS: C-REACTIVE PROTEIN 3.6 MG/DL (0.00-0.3)
[2016-07-11 08:55] LABS: ANION GAP 7 (8-16)
[2016-07-11 08:58] LABS: ALBUMIN 2.2 g/dl (3.4-5.0); ALK PHOS 68 U/L (45-117); CO2 33 mmol/L (21-32); SGOT/AST 15 U/L (15-37); SGPT/ALT 13 U/L (12-78)
[2016-07-11] MEDS: COLLAGENASE CLOSTRIDIUM HIST. 30 GRAMS TUBE TP SCH (10:11)
[2016-07-11] MEDS: FLUDROCORTISONE ACETATE 0.1 MG TABLET (FP) GT SCH ×2 (10:11→23:08)
[2016-07-11] MEDS: LACTOBACILLUS ACIDOPHILUS 1 EACH TAB (FP) GT SCH ×2 (10:12→23:05)
[2016-07-11] MEDS: MULTIVITAMINS (DAILY MVI) TABLET (FP) PO SCH (10:12)
[2016-07-11] MEDS: ASCORBIC ACID 500 MG TABLET (FP) GT SCH (10:13)
[2016-07-11] MEDS: CARBIDOPA/LEVODOPA 25/100 TABLET (FP) GT SCH ×2 (10:13→23:04)
[2016-07-11] MEDS: DONEPEZIL HCL 10 MG TABLET (FP) GT SCH (10:13)
[2016-07-11] MEDS: RANITIDINE HCL 150 MG TABLET (FP) PO SCH ×2 (10:13→23:05)
--- NOTE | 2016-07-11 12:38 | PN ---
Progress Note, Physician Chief Complaint: wbc better six weeks of oneyda and lucy monitor oneyda level spoke to she says that patient been having intermittent diarrhea at [place] for last 4 months and she wants dr agosto to see patient - Current Medication List Current Medications: Active Medications Acetaminophen (Tylenol -) 650 mg NR Q4H PRN PRN Reason: PAIN 6-10 Albuterol/Ipratropium (Duoneb -) 1 amp NEB QIDR [facility] Last Admin: 07/11/16 11:42 Dose: 1 amp Ascorbic Acid (Vitamin C -) 500 mg GT DAILY [facility] Last Admin: 07/11/16 10:13 Dose: 500 mg Carbidopa/Levodopa (Sinemet 25/100 -) 1 each GT BID [facility] Last Admin: 07/11/16 10:13 Dose: 1 each Collagenase (Santyl -) 1 applic TP DAILY [facility] Last Admin: 07/11/16 10:11 Dose: 1 applic Donepezil HCl (Aricept -) 10 mg GT DAILY [facility] Last Admin: 07/11/16 10:13 Dose: 10 mg Ferrous Sulfate (Feosol) 300 mg GT [facility] Last Admin: 07/10/16 22:34 Dose: 300 mg Fludrocortisone Acetate (Florinef -) 0.1 mg GT BID [facility] Last Admin: 07/11/16 10:11 Dose: 0.1 mg Furosemide (Lasix Oral Solution -) 40 mg GT BID@0600,1400 [facility] Last Admin: 07/11/16 07:00 Dose: 40 mg Vancomycin HCl 1,500 mg/ (Dextrose) 500 mls @ 250 mls/hr IVPB DAILY@1600 [facility] Last Admin: 07/10/16 18:35 Dose: 250 mls/hr Lactobacillus Acidophilus (Bacid -) 1 tab GT BID [facility] Last Admin: 07/11/16 10:12 Dose: 1 tab Loperamide HCl (Imodium -) 2 mg GT Q6H PRN PRN Reason: DIARRHEA Metoprolol Tartrate (Lopressor -) 12.5 mg GT TID [facility] Last Admin: 07/11/16 07:00 Dose: 12.5 mg Mirtazapine (Remeron -) 15 mg GT HS [facility] Last Admin: 07/10/16 22:35 Dose: 15 mg Multivitamins/Minerals/Vitamin C (Tab-A-Vit -) 1 tab PO DAILY [facility] Last Admin: 07/11/16 10:12 Dose: 1 tab Piperacillin Sod/Tazobactam Sod (Zosyn 4.5gm Ivpb (Pre-Docked)) 4.5 gm IVPB Q8H -IV [facility] Last Admin: 07/11/16 10:10 Dose: 4.5 gm Potassium Chloride (Kcl Oral Solution -) 40 meq PO BID [facility] Potassium Phos/Sodium Phos (Phos-Nak Packet -) 1 packet PEG TID [facility] Last Admin: 07/11/16 07:00 Dose: 1 packet Ranitidine HCl (Zantac -) 150 mg PO BID [facility] Last Admin: 07/11/16 10:13 Dose: 150 mg Scopolamine HBr (Transderm-Scop -) 1 patch TD Q72H [facility] Last Admin: 07/09/16 23:02 Dose: 1 patch Triamcinolone Acetonide (Aristocort 0.025% Cream -) 1 applic TP BID [facility] Warfarin Sodium (Coumadin -) 5 mg PO DAILY@1800 [facility] - Objective Vital Signs: Vital Signs Temperature 97.4 F L 07/11/16 06:00 Pulse Rate 54 L 07/11/16 06:00 Respiratory Rate 12 07/11/16 10:40 Blood Pressure 101/55 07/11/16 06:00 O2 Sat by Pulse Oximetry (%) 97 07/10/16 10:39 Constitutional: Yes: Calm Neck: Yes: Trachea Midline, Other (trach) Cardiovascular: Yes: Regular Rate and Rhythm, S1, S2 Respiratory: Yes: Mechanically Ventilated Gastrointestinal: Yes: Normal Bowel Sounds, Soft, Other ( g tube) Edema: Yes Labs: CBC, BMP 07/11/16 06:00 07/11/16 06:00 INR, PTT INR 3.27 (0.82-1.09) H 07/11/16 06:00 Problem List - Problems (1) Foot ulcer Assessment/Plan: seen by wound care team iv abx possible six weeks for chronic osteo picc line on thursday couamml will hold given elevated inr and needs picc line check ESR ad CRP--elevated ID eval noted vacno and zosyn for 6 weeks wound culture sent xray foot noted for foot swellig Code(s): L97.509 - NON-PRESSURE CHRONIC ULCER OTH PRT UNSP FOOT W UNSP SEVERITY (2) Foot infection Assessment/Plan: see above Code(s): L08.9 - LOCAL INFECTION OF THE SKIN AND SUBCUTANEOUS TISSUE, UNSP (3) Chronic respiratory failure Assessment/Plan: vent support scoploamine for secretions pleural effsuion on cxr lasix and k dur Code(s): J96.10 - CHRONIC RESPIRATORY FAILURE, UNSP W HYPOXIA OR HYPERCAPNIA Qualifiers: Respiratory failure complication: hypoxia Qualified Code(s): J96.11 - Chronic respiratory failure with hypoxia (4) Dysphagia Assessment/Plan: feeding via peg Code(s): R13.10 - DYSPHAGIA, UNSPECIFIED (5) A-fib Assessment/Plan: couadin hold given elevated INR adn needs pick line INR check- supratherapuetic INR metoprolol rate control Code(s): I48.91 - UNSPECIFIED ATRIAL FIBRILLATION Qualifiers: Atrial fibrillation type: chronic Qualified Code(s): I48.2 - Chronic atrial fibrillation (6) Diarrhea Assessment/Plan: intermient diarrhea seen by dr agosto in past wants him to come see patient in house as difficult to FU with him when dc back to [facility] Code(s): R19.7 - DIARRHEA, UNSPECIFIED (7) Parkinson disease Assessment/Plan: sinemet cortisone cream for skin rash Code(s): G20 - PARKINSON'S DISEASE
--- NOTE | 2016-07-11 15:45 | PN ---
Physical Exam: SUBJECTIVE: Patient seen and examined at bed side this morning. Baseline non verbal, trach on a/c vent @ /40/5 OBJECTIVE: Vital Signs Period Temp Pulse Resp BP Sys/Limon Pulse Ox Last 24 Hr 97.4 F-98.9 F 54-71 12-16 91-132/50-68 97 GENERAL: Awake, non verbal, doesn't follow all the commands, tracheostomy in place, bauman catheter in place, A/C //5 HEAD: Normal with no signs of trauma. EYES: Pupils equal, round and reactive to light. EARS, NOSE, THROAT: Ears normal NECK: No JVD LUNGS: Breath sounds equal, clear to auscultation bilaterally. No wheeze noted. HEART: Irregularly irregular, tachycardia, S1 and S2 heard, murmur couldn't be appreciated. ABDOMEN: Tube near the umbilicus intact, Soft, nontender, not distended, normoactive bowel sounds, no guarding, no rebound, no masses. No hepatomegaly or splenomegaly. MUSCULOSKELETAL: Stiff during range of motion. UPPER EXTREMITIES: 2+ pulses, warm, well-perfused. Edema + LOWER EXTREMITIES: [id number] black central lesion at the lateral surface of left foot, 2+ pulses, warm, well-perfused. B/L pitting edema, chronic venous stasis. NEUROLOGICAL: Awake, non communicative. Decubiti ulcer: Left Buttock 4cm x 6 cm with opening; Right buttock 3cm x 4 cm with opening, Left lateral foot-4x3cm. PSYCHIATRIC: No eye contact. SKIN: Warm, dry, normal turgor, no rashes or lesions noted. Laboratory Results - last 24 hr 07/11/16 07/11/16 07/11/16 06:00 06:00 06:00 WBC 10.5 H RBC 3.58 L Hgb 11.2 L Hct 33.1 L MCV 92.5 MCHC 33.7 RDW 14.5 Plt Count 231 MPV 9.5 Neutrophils % 58.1 D Lymphocytes % 23.2 D Monocytes % 11.6 H Eosinophils % 6.5 H D Basophils % 0.6 ESR INR 3.27 H Sodium 140 Potassium 3.1 L Chloride 100 Carbon Dioxide 33 H Anion Gap 7 L BUN 19 H Creatinine 0.6 L Creat Clearance w eGFR > 60 Random Glucose 101 Calcium 7.8 L Total Bilirubin 0.4 AST 15 D ALT 13 Alkaline Phosphatase 68 C-Reactive Protein 3.6 H D Total Protein 6.2 L Albumin 2.2 L 07/11/16 07/11/16 06:00 06:00 WBC RBC Hgb Hct MCV MCHC RDW Plt Count MPV Neutrophils % Lymphocytes % Monocytes % Eosinophils % Basophils % ESR 68 H INR Sodium Potassium Chloride Carbon Dioxide Anion Gap BUN Creatinine Creat Clearance w eGFR Random Glucose Calcium Total Bilirubin AST ALT Alkaline Phosphatase C-Reactive Protein Cancelled Total Protein Albumin Active Medications Generic Name Dose Route Start Last Admin Trade Name Freq PRN Reason Stop Dose Admin Acetaminophen 650 mg 07/09/16 19:42 Tylenol - NR Q4H PRN PAIN 6-10 Albuterol/Ipratropium 1 amp 07/10/16 00:00 07/11/16 11:42 Duoneb - NEB 1 amp QIDR [facility] Administration Amino Acids 30 ml 07/11/16 17:30 Prostat Sugar-Free Packet - GT BID@0800,1730 [facility] Ascorbic Acid 500 mg 07/10/16 10:00 07/11/16 10:13 Vitamin C - GT 500 mg DAILY [facility] Administration Carbidopa/Levodopa 1 each 07/09/16 22:00 07/11/16 10:13 Sinemet 25/100 - GT 1 each BID [facility] Administration Collagenase 1 applic 07/10/16 12:00 07/11/16 10:11 Santyl - TP 1 applic DAILY [facility] Administration Donepezil HCl 10 mg 07/10/16 10:00 07/11/16 10:13 Aricept - GT 10 mg DAILY [facility] Administration Ferrous Sulfate 300 mg 07/09/16 22:00 07/10/16 22:34 Feosol GT 300 mg HS [facility] Administration Fludrocortisone Acetate 0.1 mg 07/09/16 22:00 07/11/16 10:11 Florinef - GT 0.1 mg BID [facility] Administration Furosemide 40 mg 07/10/16 06:00 07/11/16 14:28 Lasix Oral Solution - GT 40 mg BID@0600,1400 [facility] Administration Vancomycin HCl 1,500 mg/ 500 mls @ 250 mls/hr 07/10/16 16:00 07/10/16 18:35 Dextrose IVPB 250 mls/hr DAILY@1600 [facility] Administration Lactobacillus Acidophilus 1 tab 07/09/16 22:00 07/11/16 10:12 Bacid - GT 1 tab BID [facility] Administration Loperamide HCl 2 mg 07/09/16 19:54 Imodium - GT Q6H PRN DIARRHEA Metoprolol Tartrate 12.5 mg 07/09/16 22:00 07/11/16 14:29 Lopressor - GT 12.5 mg TID [facility] Administration Mirtazapine 15 mg 07/10/16 22:00 07/10/16 22:35 Remeron - GT 15 mg HS [facility] Administration Multivitamins/Minerals/Vitamin C 1 tab 07/10/16 10:00 07/11/16 10:12 Tab-A-Vit - PO 1 tab DAILY [facility] Administration Piperacillin Sod/Tazobactam Sod 4.5 gm 07/10/16 18:00 07/11/16 10:10 Zosyn 4.5gm Ivpb (Pre-Docked) IVPB 4.5 gm Q8H-IV [facility] Administration Potassium Chloride 40 meq 07/11/16 22:00 Kcl Oral Solution - PO BID [facility] Potassium Phos/Sodium Phos 1 packet 07/09/16 22:00 07/11/16 14:29 Phos-Nak Packet - PEG 1 packet TID [facility] Administration Ranitidine HCl 150 mg 07/09/16 22:00 07/11/16 10:13 Zantac - PO 150 mg BID [facility] Administration Scopolamine HBr 1 patch 07/09/16 22:00 07/09/16 23:02 Transderm-Scop - TD 1 patch Q72H [facility] Administration Triamcinolone Acetonide 1 applic 07/11/16 22:00 Aristocort 0.025% Cream - TP BID [facility] Warfarin Sodium 5 mg 07/11/16 18:00 Coumadin - PO DAILY@1800 [facility] ASSESSMENT/PLAN: 81 year old male with significant past medical hx of COPD with chronic respiratory distress s/p trach, hyperlipidemia, CAD, CVA with right sided hemiplegia, atrial fibrillation, dementia, and parkinsonism was brought in from the halfway for PICC line placement to treat possible osteomyelitis of the left foot. # Possible osteomyelitis of left foot On Examination: left foot [id number] black central lesion at the lateral surface of left annette One dose of Vancomycin and Zosyn given in the ED. IV Zosyn and Vancomycin to be continued Vascular surgery consult appreciated. Since patient's INR is at supratherapeutic level, cannot place PICC line now. Hence, PICC line to be placed likely on Thursday. Previously patient has been positive for: Acinetobacter/Beta Lactam Step- Proteus mirabilis/E. faecalis- 03/20/2016 Pseudomonas 2015. Case seen and discussed with Dr. Kunz. Thank you for the consultative opportunity. Visit type - Emergency Visit Emergency Visit: Yes ED Registration Date: 07/09/16 Care time: The patient presented to the Emergency Department on the above date and was hospitalized for further evaluation of their emergent condition. - New Patient This patient is new to me today: No - Critical Care Critical Care patient: No
[2016-07-11] MEDS: VANCOMYCIN 1,500 MG in DEXTROSE 5%-WATER - 500 ML IVPB SCH (15:56)
--- NOTE | 2016-07-11 15:59 | PN ---
Progress Note, Physician History of Present Illness: PULMONARY ON VENT SUPPORT,POORLY RESPONSIVE. - Current Medication List Current Medications: Active Medications Acetaminophen (Tylenol -) 650 mg NR Q4H PRN PRN Reason: PAIN 6-10 Albuterol/Ipratropium (Duoneb -) 1 amp NEB QIDR [facility] Last Admin: 07/11/16 11:42 Dose: 1 amp Amino Acids (Prostat Sugar-Free Packet -) 30 ml GT BID@0800,1730 [facility] Ascorbic Acid (Vitamin C -) 500 mg GT DAILY [facility] Last Admin: 07/11/16 10:13 Dose: 500 mg Carbidopa/Levodopa (Sinemet 25/100 -) 1 each GT BID [facility] Last Admin: 07/11/16 10:13 Dose: 1 each Collagenase (Santyl -) 1 applic TP DAILY [facility] Last Admin: 07/11/16 10:11 Dose: 1 applic Donepezil HCl (Aricept -) 10 mg GT DAILY [facility] Last Admin: 07/11/16 10:13 Dose: 10 mg Ferrous Sulfate (Feosol) 300 mg GT [facility] Last Admin: 07/10/16 22:34 Dose: 300 mg Fludrocortisone Acetate (Florinef -) 0.1 mg GT BID [facility] Last Admin: 07/11/16 10:11 Dose: 0.1 mg Furosemide (Lasix Oral Solution -) 40 mg GT BID@0600,1400 [facility] Last Admin: 07/11/16 14:28 Dose: 40 mg Vancomycin HCl 1,500 mg/ (Dextrose) 500 mls @ 250 mls/hr IVPB DAILY@1600 [facility] Last Admin: 07/10/16 18:35 Dose: 250 mls/hr Lactobacillus Acidophilus (Bacid -) 1 tab GT BID [facility] Last Admin: 07/11/16 10:12 Dose: 1 tab Loperamide HCl (Imodium -) 2 mg GT Q6H PRN PRN Reason: DIARRHEA Metoprolol Tartrate (Lopressor -) 12.5 mg GT TID [facility] Last Admin: 07/11/16 14:29 Dose: 12.5 mg Mirtazapine (Remeron -) 15 mg GT HS [facility] Last Admin: 07/10/16 22:35 Dose: 15 mg Multivitamins/Minerals/Vitamin C (Tab-A-Vit -) 1 tab PO DAILY [facility] Last Admin: 07/11/16 10:12 Dose: 1 tab Piperacillin Sod/Tazobactam Sod (Zosyn 4.5gm Ivpb (Pre-Docked)) 4.5 gm IVPB Q8H -IV [facility] Last Admin: 07/11/16 10:10 Dose: 4.5 gm Potassium Chloride (Kcl Oral Solution -) 40 meq PO BID [facility] Potassium Phos/Sodium Phos (Phos-Nak Packet -) 1 packet PEG TID [facility] Last Admin: 07/11/16 14:29 Dose: 1 packet Ranitidine HCl (Zantac -) 150 mg PO BID [facility] Last Admin: 07/11/16 10:13 Dose: 150 mg Scopolamine HBr (Transderm-Scop -) 1 patch TD Q72H [facility] Last Admin: 07/09/16 23:02 Dose: 1 patch Triamcinolone Acetonide (Aristocort 0.025% Cream -) 1 applic TP BID [facility] Warfarin Sodium (Coumadin -) 5 mg PO DAILY@1800 [facility] - Objective Vital Signs: Vital Signs Temperature 98.9 F 07/11/16 15:06 Pulse Rate 62 07/11/16 15:06 Respiratory Rate 16 07/11/16 15:06 Blood Pressure 132/68 07/11/16 15:06 O2 Sat by Pulse Oximetry (%) 97 07/11/16 14:30 Constitutional: Yes: Well Nourished, Other (POORLY RESPONSIVE) Eyes: Yes: WNL HENT: Yes: WNL Neck: Yes: Supple (TRACH) Cardiovascular: Yes: Pulse Irregular, S1, S2 Respiratory: Yes: Diminished Gastrointestinal: Yes: Normal Bowel Sounds, Soft Extremities: Yes: WNL, Other (LEFT FOOT ULCER) Labs: CBC, BMP 07/11/16 06:00 07/11/16 06:00 INR, PTT INR 3.27 (0.82-1.09) H 07/11/16 06:00 Assessment/Plan Problem List - Problems (1) Chronic osteomyelitis Code(s): M86.60 - OTHER CHRONIC OSTEOMYELITIS, UNSPECIFIED SITE (2) Foot infection Code(s): L08.9 - LOCAL INFECTION OF THE SKIN AND SUBCUTANEOUS TISSUE, UNSP (3) Foot ulcer Code(s): L97.509 - NON-PRESSURE CHRONIC ULCER OTH PRT UNSP FOOT W UNSP SEVERITY (4) A-fib Code(s): I48.91 - UNSPECIFIED ATRIAL FIBRILLATION Qualifiers: Atrial fibrillation type: chronic Qualified Code(s): I48.2 - Chronic atrial fibrillation (5) CHF (congestive heart failure) Code(s): I50.9 - HEART FAILURE, UNSPECIFIED (6) Chronic atrial fibrillation Code(s): I48.2 - CHRONIC ATRIAL FIBRILLATION (7) Chronic respiratory failure Code(s): J96.10 - CHRONIC RESPIRATORY FAILURE, UNSP W HYPOXIA OR HYPERCAPNIA Qualifiers: Respiratory failure complication: hypoxia Qualified Code(s): J96.11 - Chronic respiratory failure with hypoxia (8) Dementia Code(s): F03.90 - UNSPECIFIED DEMENTIA WITHOUT BEHAVIORAL DISTURBANCE Qualifiers: Dementia type: Parkinson's disease Dementia behavioral disturbance: with behavioral disturbance Qualified Code(s): G20 - Parkinson's disease; F02.81 - Dementia in other diseases classified elsewhere with behavioral disturbance (9) Hyperlipemia Code(s): E78.5 - HYPERLIPIDEMIA, UNSPECIFIED (10) Leg swelling Code(s): M79.89 - OTHER SPECIFIED SOFT TISSUE DISORDERS (11) Parkinson disease Code(s): G20 - PARKINSON'S DISEASE (12) Pressure ulcer Code(s): L89.90 - PRESSURE ULCER OF UNSPECIFIED SITE, UNSPECIFIED STAGE Qualifiers: Pressure ulcer stage: stage II Qualified Code(s): L89.92 - Pressure ulcer of unspecified site, stage 2 (13) Venous insufficiency Code(s): I87.2 - VENOUS INSUFFICIENCY (CHRONIC) (PERIPHERAL) (14) Ventilator dependent Code(s): Z99.11 - DEPENDENCE ON RESPIRATOR [VENTILATOR] STATUS (15) Pleural effusion Code(s): J90 - PLEURAL EFFUSION, NOT ELSEWHERE CLASSIFIED Assessment/Plan PLAN: AC Mode of vent 40% FiO2 Wound care per surgery ABX Per ID Not a candidate for wean VTE prophylaxis Antibiotics as per ID DR MOJICA
--- NOTE | 2016-07-11 16:31 | PN ---
Teaching Attending Note Name of Resident: Kaycee Hernandez ATTENDING PHYSICIAN STATEMENT I saw and evaluated the patient. I reviewed the resident's note and discussed the case with the resident. I agree with the resident's findings and plan as documented. SUBJECTIVE: OBJECTIVE: ASSESSMENT AND PLAN: Osteomyelitis For PICC Continue vanco/ zosyn Check vanco trough
--- NOTE | 2016-07-11 17:32 | PN ---
Progress Note (short form) - Note Progress Note: full consult dictated
[2016-07-11] MEDS ORDERED: WARFARIN NA 5 MG TABLET (UD) PO SCH (18:00)
[2016-07-11] MEDS: AMINO ACIDS/PROTEIN HYDROLYS SUGAR-FREE 30 ML PACKET GT SCH (18:27)
[2016-07-11] MEDS: FERROUS SO4 300 MG/5 ML ORAL SOLN UNIT DOSE CUPS GT SCH (23:04)
[2016-07-11] MEDS: MIRTAZAPINE 15 MG TABLET (FP) GT SCH (23:04)
[2016-07-11] MEDS: POTASSIUM CHLORIDE 40 MEQ/30 ML UNIT DOSE CUP PO SCH (23:05)
[2016-07-12] MEDS: PIPERACILLIN/TAZOB 4.5 GM/100 ML PRE-DOCKED IVPB SCH ×3 (02:33→18:39)
[2016-07-12] MEDS ORDERED: PT OWN MED DRAWER 7, Y5N ONE ×4 (06:20→23:48)
[2016-07-12] MEDS: METOPROLOL TARTRATE 25 MG TABLET (FP) GT SCH ×3 (07:10→22:47)
[2016-07-12] MEDS: NAPH,MB-DB/K PH,MBDB POWDER PACKET PEG SCH ×3 (07:10→22:47)
[2016-07-12] MEDS: FUROSEMIDE 40 MG/5 ML UNIT-DOSE CUP GT SCH ×2 (07:12→15:46)
[2016-07-12] MEDS: TRIAMCINOLONE ACET 0.025% CREAM 15 GM TUBE TP SCH ×4 (07:13→22:42)
[2016-07-12] MEDS: ALBUTEROL SO4 2.5/IPRATROPIUM 0.5 INH SOL 3 ML VIAL.NEB. NEB SCH ×3 (07:25→18:11)
--- NOTE | 2016-07-12 09:13 | CONS ---
DATE OF CONSULTATION: 07/11/2016 REQUESTING PHYSICIAN: Ronal Jenkins MD HISTORY: The patient is an 81-year-old male admitted through [facility] Emergency Room for evaluation of a left foot infection. He needs a PICC line placement for long-term intravenous antibiotics given his left ankle osteomyelitis. He resides at a snf and, per discussion with his this evening, she states that he has been having intermittent diarrhea for about 4 months. She does elude to some testing that has been performed at the snf for further evaluation of the diarrhea including stool testing for Clostridium difficile, and she states that was unrevealing. The patient's nurse tells me today that there has been no reported diarrhea today, and while in the hospital he has been on Jevity tube feedings. He has had endoscopic evaluation in the past. Most recently he underwent upper endoscopy July 16, 2015 with PEG placement. This was performed by Dr. Calin Jasso, and it revealed medium-sized NG tube ulcer found in the distal esophagus. Small gastric polyps were found in the gastric fundus and gastric body, and the duodenum appeared normal. Prior to this, he did have a colonoscopy performed by Dr. Jasso on March 27, 2012. This was for evaluation of rectal bleeding, and it revealed a pedunculated 2-cm polyp in the sigmoid colon and what he felt was ischemic colitis in the sigmoid colon as well as mild diverticulosis in the left colon and minimally enlarged hemorrhoids. There has been no reported overt rectal bleeding. PAST MEDICAL HISTORY: Includes Parkinson disease, paroxysmal atrial fibrillation, hyperlipidemia, depression, right lower extremity DVT, dysphagia leading to bilateral aspiration pneumonias in the past. He has a history of cellulitis of the lower extremities, excision of skin cancer from his left ear. He has a history of left hip fracture with ORIF, right inguinal hernia repair. He has a history of colon polyps. He had a PEG placement in July 2015. SOCIAL HISTORY: He is . 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 He quit smoking 40 years ago. No history of ETOH abuse. FAMILY HISTORY: Significant for skin cancer. There is no reported history of GI malignancies. ALLERGIES: LATEX. MEDICATIONS: Prior to admission include ferrous sulfate, Florinef, Scopolamine, vitamin C, carbidopa/levodopa, DuoNeb, Lopressor, multivitamins, ranitidine, potassium oral solution, Lasix, K-Phos, , Remeron, loperamide, Aricept, and Coumadin. REVIEW OF SYSTEMS: Unable to obtain as the patient is nonverbal. However, there has been no overt rectal bleeding noted. PHYSICAL EXAMINATION: General: The patient is found lying in his bed. He is ventilated on a tracheostomy. Vital Signs: Temperature 98.9, pulse 62, blood pressure 132/68. HEENT: Sclerae anicteric. Neck: Supple. Heart: Reveals a regular rate and rhythm. No murmurs are appreciated. Lungs: Reveal decreased breath sounds at the bases bilaterally with the patient giving poor inspiratory effort. Abdomen: He has a balloon G-tube in place in the left upper quadrant. The PEG site is clean, dry, and intact. There is no erythema or fluctuance at the site. He has normoactive bowel sounds. No hepatosplenomegaly is appreciated. No overt masses are palpated. He does not appear to grimace upon palpation. Extremities: Reveal 2+ lower extremity edema with chronic stasis changes. He also has dressings on both his heels. Rectal: Digital rectal exam, there are no external lesions and no masses. He does have a small amount of greenish, formed stool in the rectal vault, which is guaiac negative. This appears to be iron stained. LABORATORY EVALUATION: White blood count 10.5, hemoglobin 11.2, hematocrit 33.1, platelets 231, ESR 68, INR 3.27. Sodium 140, potassium 3.1, chloride 100, bicarbonate 33, BUN 19 with creatinine 0.6. AST 15, ALT 13, alkaline phosphatase 16, total bilirubin 0.4 with an albumin of 2.2. Radiology report: No GI imaging noted. IMPRESSION: This is an 81-year-old male with multiple medical problems with a reported history of intermittent, chronic diarrhea. PLAN: Given his overall condition and his significant medication regimen, medications would have to be considered as possible culprits in his chronic, intermittent loose bowel movements. Included culprits upon review of his home medication list would include his oral iron supplementation with ferrous sulfate, his b.i.d. Zantac, his b.i.d. ranitidine, his Aricept, his daily potassium supplementation, and his daily potassium supplementation Medication elimination should be considered. Ranitidine can be decreased to once a day if it is being used for GI prophylaxis. Also, the choice of his tube feedings needs to be reviewed as well. An alimental formula could be trialed while he is in the hospital to see if this helps alleviate his looser bowel movements. I have also ordered stool studies for Clostridium difficile, Microsporidia and Isospora, fecal leukocytes, and for norovirus. Continue probiotic as he will likely need to be on longstanding antibiotics as well. Other recommendations will be made pending the patient's clinical course. I did have a discussion with his and would try and avoid invasive testing in the setting of his other medical problems and need for continued anticoagulation. I thank you for this consultative opportunity. MARIS STEWART DO [id number]
[2016-07-12 09:26] LABS: BASOPHIL 0.7 % (0-2.0); EOSINOPHIL 6.3 % (0-4.5); MCH 30.9 pg (25.7-33.7); MCHC 33.2 g/dl (32.0-35.9); MEAN CELL VOLUME 92.9 fl (80-96); MEAN PLT VOLUME 9.4 fl (7.5-11.1); NEUTROPHILS 56.7 % (42.8-82.8); PLATELET COUNT 253 K/MM3 (134-434); RDW 14.8 % (11.9-15.9); WHITE BLOOD COUNT 11.3 K/mm3 (4.0-10.0)
[2016-07-12 09:27] LABS: INR 2.31 (0.82-1.09); PROTHROMBIN TIME (PATIENT) 25.8 SEC (9.98-11.88)
--- NOTE | 2016-07-12 09:54 | PN ---
Progress Note, Physician - Current Medication List Current Medications: Active Medications Acetaminophen (Tylenol -) 650 mg NR Q4H PRN PRN Reason: PAIN 6-10 Albuterol/Ipratropium (Duoneb -) 1 amp NEB QIDR [facility] Last Admin: 07/12/16 07:25 Dose: 1 amp Amino Acids (Prostat Sugar-Free Packet -) 30 ml GT BID@0800,1730 [facility] Last Admin: 07/11/16 18:27 Dose: 30 ml Ascorbic Acid (Vitamin C -) 500 mg GT DAILY [facility] Last Admin: 07/11/16 10:13 Dose: 500 mg Carbidopa/Levodopa (Sinemet 25/100 -) 1 each GT BID [facility] Last Admin: 07/11/16 23:04 Dose: 1 each Collagenase (Santyl -) 1 applic TP DAILY [facility] Last Admin: 07/11/16 10:11 Dose: 1 applic Donepezil HCl (Aricept -) 10 mg GT DAILY [facility] Last Admin: 07/11/16 10:13 Dose: 10 mg Ferrous Sulfate (Feosol) 300 mg GT [facility] Last Admin: 07/11/16 23:04 Dose: 300 mg Fludrocortisone Acetate (Florinef -) 0.1 mg GT BID [facility] Last Admin: 07/11/16 23:08 Dose: 0.1 mg Furosemide (Lasix Oral Solution -) 40 mg GT BID@0600,1400 [facility] Last Admin: 07/12/16 07:12 Dose: 40 mg Vancomycin HCl 1,500 mg/ (Dextrose) 500 mls @ 250 mls/hr IVPB DAILY@1600 [facility] Last Admin: 07/11/16 15:56 Dose: 250 mls/hr Lactobacillus Acidophilus (Bacid -) 1 tab GT BID [facility] Last Admin: 07/11/16 23:05 Dose: 1 tab Loperamide HCl (Imodium -) 2 mg GT Q6H PRN PRN Reason: DIARRHEA Metoprolol Tartrate (Lopressor -) 12.5 mg GT TID [facility] Last Admin: 07/12/16 07:10 Dose: 12.5 mg Mirtazapine (Remeron -) 15 mg GT HS [facility] Last Admin: 07/11/16 23:04 Dose: 15 mg Multivitamins/Minerals/Vitamin C (Tab-A-Vit -) 1 tab PO DAILY [facility] Last Admin: 07/11/16 10:12 Dose: 1 tab Piperacillin Sod/Tazobactam Sod (Zosyn 4.5gm Ivpb (Pre-Docked)) 4.5 gm IVPB Q8H -IV [facility] Last Admin: 07/12/16 02:33 Dose: 4.5 gm Potassium Chloride (Kcl Oral Solution -) 40 meq PO BID [facility] Last Admin: 07/11/16 23:05 Dose: 40 meq Potassium Phos/Sodium Phos (Phos-Nak Packet -) 1 packet PEG TID [facility] Last Admin: 07/12/16 07:10 Dose: 1 packet Ranitidine HCl (Zantac -) 150 mg PO BID [facility] Last Admin: 07/11/16 23:05 Dose: 150 mg Scopolamine HBr (Transderm-Scop -) 1 patch TD Q72H [facility] Last Admin: 07/09/16 23:02 Dose: 1 patch Triamcinolone Acetonide (Aristocort 0.025% Cream -) 1 applic TP BID [facility] Last Admin: 07/12/16 09:02 Dose: Not Given Warfarin Sodium (Coumadin -) 5 mg PO DAILY@1800 [facility] - Objective Vital Signs: Vital Signs Temperature 98.5 F 07/12/16 02:00 Pulse Rate 63 07/12/16 06:00 Respiratory Rate 18 07/12/16 07:42 Blood Pressure 114/61 07/12/16 06:00 O2 Sat by Pulse Oximetry (%) 97 07/11/16 14:30 HENT: Yes: Other (TRACH/VENT) Cardiovascular: Yes: S1, S2 Respiratory: Yes: CTA Bilaterally Gastrointestinal: Yes: Normal Bowel Sounds, Soft Edema: Yes Labs: CBC, BMP 07/12/16 07:00 INR, PTT INR 2.31 (0.82-1.09) H 07/12/16 07:00 Problem List - Problems (1) A-fib Code(s): I48.91 - UNSPECIFIED ATRIAL FIBRILLATION Qualifiers: Atrial fibrillation type: chronic Qualified Code(s): I48.2 - Chronic atrial fibrillation (2) Chronic respiratory failure Code(s): J96.10 - CHRONIC RESPIRATORY FAILURE, UNSP W HYPOXIA OR HYPERCAPNIA Qualifiers: Respiratory failure complication: hypoxia Qualified Code(s): J96.11 - Chronic respiratory failure with hypoxia (3) Diarrhea Code(s): R19.7 - DIARRHEA, UNSPECIFIED (4) Dysphagia Code(s): R13.10 - DYSPHAGIA, UNSPECIFIED (5) Foot infection Code(s): L08.9 - LOCAL INFECTION OF THE SKIN AND SUBCUTANEOUS TISSUE, UNSP (6) Foot ulcer Code(s): L97.509 - NON-PRESSURE CHRONIC ULCER OTH PRT UNSP FOOT W UNSP SEVERITY (7) Parkinson disease Code(s): G20 - PARKINSON'S DISEASE Assessment/Plan (1) Foot ulcer Assessment/Plan: seen by wound care team iv abx possible six weeks for chronic osteo picc line on thursday couamdin will hold given elevated inr and needs picc line check ESR ad CRP--elevated ID eval noted vacno and zosyn for 6 weeks wound culture sent -> f/u xray foot noted for foot swellig Code(s): L97.509 - NON-PRESSURE CHRONIC ULCER OTH PRT UNSP FOOT W UNSP SEVERITY (2) Foot infection Assessment/Plan: see above Code(s): L08.9 - LOCAL INFECTION OF THE SKIN AND SUBCUTANEOUS TISSUE, UNSP (3) Chronic respiratory failure Assessment/Plan: vent support scoploamine for secretions pleural effsuion on cxr lasix and k dur Code(s): J96.10 - CHRONIC RESPIRATORY FAILURE, UNSP W HYPOXIA OR HYPERCAPNIA Qualifiers: Respiratory failure complication: hypoxia Qualified Code(s): J96.11 - Chronic respiratory failure with hypoxia (4) Dysphagia Assessment/Plan: feeding via peg Code(s): R13.10 - DYSPHAGIA, UNSPECIFIED (5) A-fib Assessment/Plan: couadin hold given elevated INR adn needs pick line -> will f/u & replace with iv heparin when needed INR therapuetic metoprolol rate control Code(s): I48.91 - UNSPECIFIED ATRIAL FIBRILLATION Qualifiers: Atrial fibrillation type: chronic Qualified Code(s): I48.2 - Chronic atrial fibrillation (6) Diarrhea Assessment/Plan: intermient diarrhea seen by dr agosto in past wants him to come see patient in house as difficult to FU with him when dc back to [place] Code(s): R19.7 - DIARRHEA, UNSPECIFIED (7) Parkinson disease Assessment/Plan: sinemet cortisone cream for skin rash Code(s): G20 - PARKINSON'S DISEASE [employer]
[2016-07-12 10:00] LABS: ALBUMIN 2.3 g/dl (3.4-5.0); ALK PHOS 68 U/L (45-117); ANION GAP 6 (8-16); BILIRUBIN,TOTAL 0.6 mg/dL (0.2-1.0); CALCIUM 7.9 mg/dL (8.5-10.1); CO2 34 mmol/L (21-32); CREATININE 0.6 mg/dL (0.7-1.3); GLUCOSE,RANDOM 84 mg/dL (74-106); SGOT/AST 14 U/L (15-37); SGPT/ALT 14 U/L (12-78); TOT PROT 6.5 g/dl (6.4-8.2)
[2016-07-12] MEDS: AMINO ACIDS/PROTEIN HYDROLYS SUGAR-FREE 30 ML PACKET GT SCH ×2 (10:29→18:39)
[2016-07-12] MEDS: POTASSIUM CHLORIDE 40 MEQ/30 ML UNIT DOSE CUP PO SCH ×2 (10:29→22:47)
[2016-07-12] MEDS: COLLAGENASE CLOSTRIDIUM HIST. 30 GRAMS TUBE TP SCH (10:30)
[2016-07-12] MEDS: FLUDROCORTISONE ACETATE 0.1 MG TABLET (FP) GT SCH ×2 (10:31→22:46)
[2016-07-12] MEDS: MULTIVITAMINS (DAILY MVI) TABLET (FP) PO SCH (10:31)
[2016-07-12] MEDS: RANITIDINE HCL 150 MG TABLET (FP) PO SCH ×2 (10:31→22:48)
[2016-07-12] MEDS: ASCORBIC ACID 500 MG TABLET (FP) GT SCH (10:32)
[2016-07-12] MEDS: CARBIDOPA/LEVODOPA 25/100 TABLET (FP) GT SCH ×2 (10:32→22:48)
[2016-07-12] MEDS: LACTOBACILLUS ACIDOPHILUS 1 EACH TAB (FP) GT SCH ×2 (10:32→22:46)
[2016-07-12] MEDS: DONEPEZIL HCL 10 MG TABLET (FP) GT SCH (10:32)
--- NOTE | 2016-07-12 11:37 | PN ---
Progress Note, Physician History of Present Illness: PULMONARY POORLY RESPONSIVE ON VENT SUPPORT,AC MODE - Current Medication List Current Medications: Active Medications Acetaminophen (Tylenol -) 650 mg NR Q4H PRN PRN Reason: PAIN 6-10 Albuterol/Ipratropium (Duoneb -) 1 amp NEB QIDR [facility] Last Admin: 07/12/16 07:25 Dose: 1 amp Amino Acids (Prostat Sugar-Free Packet -) 30 ml GT BID@0800,1730 [facility] Last Admin: 07/12/16 10:29 Dose: 30 ml Ascorbic Acid (Vitamin C -) 500 mg GT DAILY [facility] Last Admin: 07/12/16 10:32 Dose: 500 mg Carbidopa/Levodopa (Sinemet 25/100 -) 1 each GT BID [facility] Last Admin: 07/12/16 10:32 Dose: 1 each Collagenase (Santyl -) 1 applic TP DAILY [facility] Last Admin: 07/12/16 10:30 Dose: 1 applic Donepezil HCl (Aricept -) 10 mg GT DAILY [facility] Last Admin: 07/12/16 10:32 Dose: 10 mg Ferrous Sulfate (Feosol) 300 mg GT [facility] Last Admin: 07/11/16 23:04 Dose: 300 mg Fludrocortisone Acetate (Florinef -) 0.1 mg GT BID [facility] Last Admin: 07/12/16 10:31 Dose: 0.1 mg Furosemide (Lasix Oral Solution -) 40 mg GT BID@0600,1400 [facility] Last Admin: 07/12/16 07:12 Dose: 40 mg Vancomycin HCl 1,500 mg/ (Dextrose) 500 mls @ 250 mls/hr IVPB DAILY@1600 [facility] Last Admin: 07/11/16 15:56 Dose: 250 mls/hr Lactobacillus Acidophilus (Bacid -) 1 tab GT BID [facility] Last Admin: 07/12/16 10:32 Dose: 1 tab Loperamide HCl (Imodium -) 2 mg GT Q6H PRN PRN Reason: DIARRHEA Metoprolol Tartrate (Lopressor -) 12.5 mg GT TID [facility] Last Admin: 07/12/16 07:10 Dose: 12.5 mg Mirtazapine (Remeron -) 15 mg GT HS [facility] Last Admin: 07/11/16 23:04 Dose: 15 mg Multivitamins/Minerals/Vitamin C (Tab-A-Vit -) 1 tab PO DAILY [facility] Last Admin: 07/12/16 10:31 Dose: 1 tab Piperacillin Sod/Tazobactam Sod (Zosyn 4.5gm Ivpb (Pre-Docked)) 4.5 gm IVPB Q8H -IV [facility] Last Admin: 07/12/16 10:33 Dose: 4.5 gm Potassium Chloride (Kcl Oral Solution -) 40 meq PO BID [facility] Last Admin: 07/12/16 10:29 Dose: 40 meq Potassium Phos/Sodium Phos (Phos-Nak Packet -) 1 packet PEG TID [facility] Last Admin: 07/12/16 07:10 Dose: 1 packet Ranitidine HCl (Zantac -) 150 mg PO BID [facility] Last Admin: 07/12/16 10:31 Dose: 150 mg Scopolamine HBr (Transderm-Scop -) 1 patch TD Q72H [facility] Last Admin: 07/09/16 23:02 Dose: 1 patch Triamcinolone Acetonide (Aristocort 0.025% Cream -) 1 applic TP BID [facility] Last Admin: 07/12/16 10:35 Dose: 1 applic Warfarin Sodium (Coumadin -) 5 mg PO DAILY@1800 [facility] - Objective Vital Signs: Vital Signs Temperature 98.5 F 07/12/16 02:00 Pulse Rate 63 07/12/16 06:00 Respiratory Rate 18 07/12/16 07:42 Blood Pressure 114/61 07/12/16 06:00 O2 Sat by Pulse Oximetry (%) 97 07/11/16 14:30 Constitutional: Yes: Well Nourished, Other (POORLY RESPONSIVE) Eyes: Yes: WNL HENT: Yes: WNL Neck: Yes: WNL Cardiovascular: Yes: Pulse Irregular, S1, S2 Respiratory: Yes: Diminished Gastrointestinal: Yes: Normal Bowel Sounds, Soft Extremities: Yes: WNL (L FOOT ULCER), Other Edema: Yes Labs: CBC, BMP 07/12/16 07:00 07/12/16 07:00 INR, PTT INR 2.31 (0.82-1.09) H 07/12/16 07:00 Assessment/Plan Problem List - Problems (1) Chronic osteomyelitis Code(s): M86.60 - OTHER CHRONIC OSTEOMYELITIS, UNSPECIFIED SITE (2) Foot infection Code(s): L08.9 - LOCAL INFECTION OF THE SKIN AND SUBCUTANEOUS TISSUE, UNSP (3) Foot ulcer Code(s): L97.509 - NON-PRESSURE CHRONIC ULCER OTH PRT UNSP FOOT W UNSP SEVERITY (4) A-fib Code(s): I48.91 - UNSPECIFIED ATRIAL FIBRILLATION Qualifiers: Atrial fibrillation type: chronic Qualified Code(s): I48.2 - Chronic atrial fibrillation (5) CHF (congestive heart failure) Code(s): I50.9 - HEART FAILURE, UNSPECIFIED (6) Chronic atrial fibrillation Code(s): I48.2 - CHRONIC ATRIAL FIBRILLATION (7) Chronic respiratory failure Code(s): J96.10 - CHRONIC RESPIRATORY FAILURE, UNSP W HYPOXIA OR HYPERCAPNIA Qualifiers: Respiratory failure complication: hypoxia Qualified Code(s): J96.11 - Chronic respiratory failure with hypoxia (8) Dementia Code(s): F03.90 - UNSPECIFIED DEMENTIA WITHOUT BEHAVIORAL DISTURBANCE Qualifiers: Dementia type: Parkinson's disease Dementia behavioral disturbance: with behavioral disturbance Qualified Code(s): G20 - Parkinson's disease; F02.81 - Dementia in other diseases classified elsewhere with behavioral disturbance (9) Hyperlipemia Code(s): E78.5 - HYPERLIPIDEMIA, UNSPECIFIED (10) Leg swelling Code(s): M79.89 - OTHER SPECIFIED SOFT TISSUE DISORDERS (11) Parkinson disease Code(s): G20 - PARKINSON'S DISEASE (12) Pressure ulcer Code(s): L89.90 - PRESSURE ULCER OF UNSPECIFIED SITE, UNSPECIFIED STAGE Qualifiers: Pressure ulcer stage: stage II Qualified Code(s): L89.92 - Pressure ulcer of unspecified site, stage 2 (13) Venous insufficiency Code(s): I87.2 - VENOUS INSUFFICIENCY (CHRONIC) (PERIPHERAL) (14) Ventilator dependent Code(s): Z99.11 - DEPENDENCE ON RESPIRATOR [VENTILATOR] STATUS (15) Pleural effusion Code(s): J90 - PLEURAL EFFUSION, NOT ELSEWHERE CLASSIFIED Assessment/Plan PLAN: AC Mode of vent 40% FiO2 Wound care per surgery ABX Per ID Not a candidate for wean VTE prophylaxis Antibiotics as per ID DR MOJICA
[2016-07-12] MEDS: VANCOMYCIN 1,500 MG in DEXTROSE 5%-WATER - 500 ML IVPB SCH (16:09)
[2016-07-12] MEDS: FERROUS SO4 300 MG/5 ML ORAL SOLN UNIT DOSE CUPS GT SCH (22:46)
[2016-07-12] MEDS: MIRTAZAPINE 15 MG TABLET (FP) GT SCH (22:48)
[2016-07-12] MEDS: SCOPOLAMINE HYDROBROMIDE 1 PATCH PATCH.TD72 TD SCH (22:52)
[2016-07-13] MEDS: ALBUTEROL SO4 2.5/IPRATROPIUM 0.5 INH SOL 3 ML VIAL.NEB. NEB SCH ×4 (00:24→18:11)
[2016-07-13] MEDS: PIPERACILLIN/TAZOB 4.5 GM/100 ML PRE-DOCKED IVPB SCH ×3 (01:50→17:28)
[2016-07-13] MEDS: FUROSEMIDE 40 MG/5 ML UNIT-DOSE CUP GT SCH ×2 (06:20→14:36)
[2016-07-13] MEDS: NAPH,MB-DB/K PH,MBDB POWDER PACKET PEG SCH ×3 (06:21→22:44)
[2016-07-13] MEDS: METOPROLOL TARTRATE 25 MG TABLET (FP) GT SCH ×3 (06:21→22:44)
[2016-07-13 07:44] LABS: BASOPHIL 0.6 % (0-2.0); EOSINOPHIL 7.8 % (0-4.5); MCH 31.2 pg (25.7-33.7); MCHC 33.4 g/dl (32.0-35.9); MEAN CELL VOLUME 93.4 fl (80-96); MEAN PLT VOLUME 9.1 fl (7.5-11.1); NEUTROPHILS 52.7 % (42.8-82.8); PLATELET COUNT 247 K/MM3 (134-434); RDW 14.6 % (11.9-15.9)
[2016-07-13 08:06] LABS: INR 1.9 (0.82-1.09); PROTHROMBIN TIME (PATIENT) 21.2 SEC (9.98-11.88)
[2016-07-13 08:14] LABS: ALBUMIN 2.3 g/dl (3.4-5.0); ANION GAP 5 (8-16); CALCIUM 7.9 mg/dL (8.5-10.1); CO2 36 mmol/L (21-32); CREATININE 0.6 mg/dL (0.7-1.3); GLUCOSE,RANDOM 96 mg/dL (74-106); SGOT/AST 17 U/L (15-37); SGPT/ALT 14 U/L (12-78)
[2016-07-13 08:16] LABS: ALK PHOS 72 U/L (45-117); BILIRUBIN,TOTAL 0.7 mg/dL (0.2-1.0); TOT PROT 6.7 g/dl (6.4-8.2)
[2016-07-13] MEDS: AMINO ACIDS/PROTEIN HYDROLYS SUGAR-FREE 30 ML PACKET GT SCH ×2 (08:54→17:15)
[2016-07-13] MEDS: RANITIDINE HCL 150 MG TABLET (FP) PO SCH ×2 (10:18→22:44)
[2016-07-13] MEDS: LACTOBACILLUS ACIDOPHILUS 1 EACH TAB (FP) GT SCH ×2 (10:18→22:43)
[2016-07-13] MEDS: ASCORBIC ACID 500 MG TABLET (FP) GT SCH (10:18)
[2016-07-13] MEDS: DONEPEZIL HCL 10 MG TABLET (FP) GT SCH (10:18)
[2016-07-13] MEDS: CARBIDOPA/LEVODOPA 25/100 TABLET (FP) GT SCH ×2 (10:18→22:43)
[2016-07-13] MEDS: MULTIVITAMINS (DAILY MVI) TABLET (FP) PO SCH (10:18)
[2016-07-13] MEDS ORDERED: PT OWN MED DRAWER 7, Y5N ONE ×3 (10:43→23:03)
[2016-07-13] MEDS: TRIAMCINOLONE ACET 0.025% CREAM 15 GM TUBE TP SCH ×2 (10:44→22:42)
[2016-07-13] MEDS: FLUDROCORTISONE ACETATE 0.1 MG TABLET (FP) GT SCH ×2 (10:44→22:43)
[2016-07-13] MEDS: COLLAGENASE CLOSTRIDIUM HIST. 30 GRAMS TUBE TP SCH (10:45)
--- NOTE | 2016-07-13 12:18 | PN ---
Progress Note, Physician - Current Medication List Current Medications: Active Medications Acetaminophen (Tylenol -) 650 mg NR Q4H PRN PRN Reason: PAIN 6-10 Albuterol/Ipratropium (Duoneb -) 1 amp NEB QIDR [facility] Last Admin: 07/13/16 12:14 Dose: 1 amp Amino Acids (Prostat Sugar-Free Packet -) 30 ml GT BID@0800,1730 [facility] Last Admin: 07/13/16 08:54 Dose: 30 ml Ascorbic Acid (Vitamin C -) 500 mg GT DAILY [facility] Last Admin: 07/13/16 10:18 Dose: 500 mg Carbidopa/Levodopa (Sinemet 25/100 -) 1 each GT BID [facility] Last Admin: 07/13/16 10:18 Dose: 1 each Collagenase (Santyl -) 1 applic TP DAILY [facility] Last Admin: 07/13/16 10:45 Dose: 1 applic Donepezil HCl (Aricept -) 10 mg GT DAILY [facility] Last Admin: 07/13/16 10:18 Dose: 10 mg Ferrous Sulfate (Feosol) 300 mg GT [facility] Last Admin: 07/12/16 22:46 Dose: 300 mg Fludrocortisone Acetate (Florinef -) 0.1 mg GT BID [facility] Last Admin: 07/13/16 10:44 Dose: 0.1 mg Furosemide (Lasix Oral Solution -) 40 mg GT BID@0600,1400 [facility] Last Admin: 07/13/16 06:20 Dose: 40 mg Vancomycin HCl 1,500 mg/ (Dextrose) 500 mls @ 250 mls/hr IVPB DAILY@1600 [facility] Last Admin: 07/12/16 16:09 Dose: 250 mls/hr Lactobacillus Acidophilus (Bacid -) 1 tab GT BID [facility] Last Admin: 07/13/16 10:18 Dose: 1 tab Loperamide HCl (Imodium -) 2 mg GT Q6H PRN PRN Reason: DIARRHEA Metoprolol Tartrate (Lopressor -) 12.5 mg GT TID [facility] Last Admin: 07/13/16 06:21 Dose: 12.5 mg Mirtazapine (Remeron -) 15 mg GT HS [facility] Last Admin: 07/12/16 22:48 Dose: 15 mg Multivitamins/Minerals/Vitamin C (Tab-A-Vit -) 1 tab PO DAILY [facility] Last Admin: 07/13/16 10:18 Dose: 1 tab Piperacillin Sod/Tazobactam Sod (Zosyn 4.5gm Ivpb (Pre-Docked)) 4.5 gm IVPB Q8H -IV [facility] Last Admin: 07/13/16 10:24 Dose: 4.5 gm Potassium Chloride (Kcl Oral Solution -) 40 meq PO BID [facility] Last Admin: 07/12/16 22:47 Dose: 40 meq Potassium Phos/Sodium Phos (Phos-Nak Packet -) 1 packet PEG TID [facility] Last Admin: 07/13/16 06:21 Dose: 1 packet Ranitidine HCl (Zantac -) 150 mg PO BID [facility] Last Admin: 07/13/16 10:18 Dose: 150 mg Scopolamine HBr (Transderm-Scop -) 1 patch TD Q72H [facility] Last Admin: 07/12/16 22:52 Dose: 1 patch Triamcinolone Acetonide (Aristocort 0.025% Cream -) 1 applic TP BID [facility] Last Admin: 07/13/16 10:44 Dose: 1 applic Warfarin Sodium (Coumadin -) 5 mg PO DAILY@1800 [facility] - Objective Vital Signs: Vital Signs Temperature 98 F 07/13/16 06:07 Pulse Rate 61 07/13/16 06:07 Respiratory Rate 12 07/13/16 06:56 Blood Pressure 116/58 07/13/16 06:07 O2 Sat by Pulse Oximetry (%) 98 07/12/16 09:00 Cardiovascular: Yes: S1, S2 Respiratory: Yes: CTA Bilaterally Gastrointestinal: Yes: Normal Bowel Sounds, Soft Edema: Yes Wound/Incision: Yes: Dressing Dry and Intact Labs: CBC, BMP 07/13/16 06:55 07/13/16 06:55 INR, PTT INR 1.90 (0.82-1.09) H 07/13/16 06:55 Problem List - Problems (1) A-fib Code(s): I48.91 - UNSPECIFIED ATRIAL FIBRILLATION Qualifiers: Atrial fibrillation type: chronic Qualified Code(s): I48.2 - Chronic atrial fibrillation (2) Chronic respiratory failure Code(s): J96.10 - CHRONIC RESPIRATORY FAILURE, UNSP W HYPOXIA OR HYPERCAPNIA Qualifiers: Respiratory failure complication: hypoxia Qualified Code(s): J96.11 - Chronic respiratory failure with hypoxia (3) Diarrhea Code(s): R19.7 - DIARRHEA, UNSPECIFIED (4) Dysphagia Code(s): R13.10 - DYSPHAGIA, UNSPECIFIED (5) Foot infection Code(s): L08.9 - LOCAL INFECTION OF THE SKIN AND SUBCUTANEOUS TISSUE, UNSP (6) Foot ulcer Code(s): L97.509 - NON-PRESSURE CHRONIC ULCER OTH PRT UNSP FOOT W UNSP SEVERITY (7) Parkinson disease Code(s): G20 - PARKINSON'S DISEASE Assessment/Plan (1) Foot ulcer Assessment/Plan: seen by wound care team iv abx possible six weeks for chronic osteo picc line on thursday couamdin will hold given elevated inr and needs picc line check ESR ad CRP--elevated ID eval noted vacno and zosyn for 6 weeks xray foot noted for foot swellig Code(s): L97.509 - NON-PRESSURE CHRONIC ULCER OTH PRT UNSP FOOT W UNSP SEVERITY (2) Foot infection Assessment/Plan: see above Code(s): L08.9 - LOCAL INFECTION OF THE SKIN AND SUBCUTANEOUS TISSUE, UNSP (3) Chronic respiratory failure Assessment/Plan: vent support -> not candidate to wean scoploamine for secretions pleural effsuion on cxr lasix and k dur Code(s): J96.10 - CHRONIC RESPIRATORY FAILURE, UNSP W HYPOXIA OR HYPERCAPNIA Qualifiers: Respiratory failure complication: hypoxia Qualified Code(s): J96.11 - Chronic respiratory failure with hypoxia (4) Dysphagia Assessment/Plan: feeding via peg Code(s): R13.10 - DYSPHAGIA, UNSPECIFIED (5) A-fib Assessment/Plan: couadin restarted at lower 5mg -> will f/u & replace with iv heparin when needed for picc line metoprolol rate control Code(s): I48.91 - UNSPECIFIED ATRIAL FIBRILLATION Qualifiers: Atrial fibrillation type: chronic Qualified Code(s): I48.2 - Chronic atrial fibrillation (6) Diarrhea Assessment/Plan: intermient diarrhea seen by dr agosto in past wants him to come see patient in house as difficult to FU with him when dc back to [facility] [place] Code(s): R19.7 - DIARRHEA, UNSPECIFIED (7) Parkinson disease Assessment/Plan: sinemet cortisone cream for skin rash Code(s): G20 - PARKINSON'S DISEASE [employer] [facility]
[2016-07-13] MEDS: POTASSIUM CHLORIDE 40 MEQ/30 ML UNIT DOSE CUP PO SCH ×2 (12:23→22:43)
--- NOTE | 2016-07-13 13:32 | PN ---
Progress Note, Physician History of Present Illness: pulmonary no change,poorly responsive on vent support ac mode - Current Medication List Current Medications: Active Medications Acetaminophen (Tylenol -) 650 mg NR Q4H PRN PRN Reason: PAIN 6-10 Albuterol/Ipratropium (Duoneb -) 1 amp NEB QIDR [facility] Last Admin: 07/13/16 12:14 Dose: 1 amp Amino Acids (Prostat Sugar-Free Packet -) 30 ml GT BID@0800,1730 [facility] Last Admin: 07/13/16 08:54 Dose: 30 ml Ascorbic Acid (Vitamin C -) 500 mg GT DAILY [facility] Last Admin: 07/13/16 10:18 Dose: 500 mg Carbidopa/Levodopa (Sinemet 25/100 -) 1 each GT BID [facility] Last Admin: 07/13/16 10:18 Dose: 1 each Collagenase (Santyl -) 1 applic TP DAILY [facility] Last Admin: 07/13/16 10:45 Dose: 1 applic Donepezil HCl (Aricept -) 10 mg GT DAILY [facility] Last Admin: 07/13/16 10:18 Dose: 10 mg Ferrous Sulfate (Feosol) 300 mg GT [facility] Last Admin: 07/12/16 22:46 Dose: 300 mg Fludrocortisone Acetate (Florinef -) 0.1 mg GT BID [facility] Last Admin: 07/13/16 10:44 Dose: 0.1 mg Furosemide (Lasix Oral Solution -) 40 mg GT BID@0600,1400 [facility] Last Admin: 07/13/16 06:20 Dose: 40 mg Vancomycin HCl 1,500 mg/ (Dextrose) 500 mls @ 250 mls/hr IVPB DAILY@1600 [facility] Last Admin: 07/12/16 16:09 Dose: 250 mls/hr Lactobacillus Acidophilus (Bacid -) 1 tab GT BID [facility] Last Admin: 07/13/16 10:18 Dose: 1 tab Loperamide HCl (Imodium -) 2 mg GT Q6H PRN PRN Reason: DIARRHEA Metoprolol Tartrate (Lopressor -) 12.5 mg GT TID [facility] Last Admin: 07/13/16 06:21 Dose: 12.5 mg Mirtazapine (Remeron -) 15 mg GT [facility] Last Admin: 07/12/16 22:48 Dose: 15 mg Multivitamins/Minerals/Vitamin C (Tab-A-Vit -) 1 tab PO DAILY [facility] Last Admin: 07/13/16 10:18 Dose: 1 tab Piperacillin Sod/Tazobactam Sod (Zosyn 4.5gm Ivpb (Pre-Docked)) 4.5 gm IVPB Q8H -IV [facility] Last Admin: 07/13/16 10:24 Dose: 4.5 gm Potassium Chloride (Kcl Oral Solution -) 40 meq PO BID [facility] Last Admin: 07/13/16 12:23 Dose: 40 meq Potassium Phos/Sodium Phos (Phos-Nak Packet -) 1 packet PEG TID [facility] Last Admin: 07/13/16 06:21 Dose: 1 packet Ranitidine HCl (Zantac -) 150 mg PO BID [facility] Last Admin: 07/13/16 10:18 Dose: 150 mg Scopolamine HBr (Transderm-Scop -) 1 patch TD Q72H [facility] Last Admin: 07/12/16 22:52 Dose: 1 patch Triamcinolone Acetonide (Aristocort 0.025% Cream -) 1 applic TP BID [facility] Last Admin: 07/13/16 10:44 Dose: 1 applic Warfarin Sodium (Coumadin -) 5 mg PO DAILY@1800 [facility] - Objective Vital Signs: Vital Signs Temperature 98.4 F 07/13/16 10:00 Pulse Rate 64 07/13/16 10:00 Respiratory Rate 14 07/13/16 11:10 Blood Pressure 110/62 07/13/16 10:00 O2 Sat by Pulse Oximetry (%) 98 07/12/16 09:00 Constitutional: Yes: Well Nourished, Other (unresponsive) Eyes: Yes: WNL HENT: Yes: WNL Neck: Yes: Supple (trach) Cardiovascular: Yes: Pulse Irregular, S1, S2 Respiratory: Yes: Diminished Gastrointestinal: Yes: Normal Bowel Sounds, Soft Extremities: Yes: Deformity (left heel ulcer), Other Edema: Yes Labs: CBC, BMP 07/13/16 06:55 07/13/16 06:55 INR, PTT INR 1.90 (0.82-1.09) H 07/13/16 06:55 Assessment/Plan Problem List - Problems (1) Chronic osteomyelitis Code(s): M86.60 - OTHER CHRONIC OSTEOMYELITIS, UNSPECIFIED SITE (2) Foot infection Code(s): L08.9 - LOCAL INFECTION OF THE SKIN AND SUBCUTANEOUS TISSUE, UNSP (3) Foot ulcer Code(s): L97.509 - NON-PRESSURE CHRONIC ULCER OTH PRT UNSP FOOT W UNSP SEVERITY (4) A-fib Code(s): I48.91 - UNSPECIFIED ATRIAL FIBRILLATION Qualifiers: Atrial fibrillation type: chronic Qualified Code(s): I48.2 - Chronic atrial fibrillation (5) CHF (congestive heart failure) Code(s): I50.9 - HEART FAILURE, UNSPECIFIED (6) Chronic atrial fibrillation Code(s): I48.2 - CHRONIC ATRIAL FIBRILLATION (7) Chronic respiratory failure Code(s): J96.10 - CHRONIC RESPIRATORY FAILURE, UNSP W HYPOXIA OR HYPERCAPNIA Qualifiers: Respiratory failure complication: hypoxia Qualified Code(s): J96.11 - Chronic respiratory failure with hypoxia (8) Dementia Code(s): F03.90 - UNSPECIFIED DEMENTIA WITHOUT BEHAVIORAL DISTURBANCE Qualifiers: Dementia type: Parkinson's disease Dementia behavioral disturbance: with behavioral disturbance Qualified Code(s): G20 - Parkinson's disease; F02.81 - Dementia in other diseases classified elsewhere with behavioral disturbance (9) Hyperlipemia Code(s): E78.5 - HYPERLIPIDEMIA, UNSPECIFIED (10) Leg swelling Code(s): M79.89 - OTHER SPECIFIED SOFT TISSUE DISORDERS (11) Parkinson disease Code(s): G20 - PARKINSON'S DISEASE (12) Pressure ulcer Code(s): L89.90 - PRESSURE ULCER OF UNSPECIFIED SITE, UNSPECIFIED STAGE Qualifiers: Pressure ulcer stage: stage II Qualified Code(s): L89.92 - Pressure ulcer of unspecified site, stage 2 (13) Venous insufficiency Code(s): I87.2 - VENOUS INSUFFICIENCY (CHRONIC) (PERIPHERAL) (14) Ventilator dependent Code(s): Z99.11 - DEPENDENCE ON RESPIRATOR [VENTILATOR] STATUS (15) Pleural effusion Code(s): J90 - PLEURAL EFFUSION, NOT ELSEWHERE CLASSIFIED Assessment/Plan PLAN: AC Mode of vent 40% FiO2 Wound care per surgery ABX Per ID Not a candidate for wean VTE prophylaxis Antibiotics as per ID DR MOJICA
[2016-07-13] MEDS: VANCOMYCIN 1,500 MG in DEXTROSE 5%-WATER - 500 ML IVPB SCH (17:13)
[2016-07-13] MEDS: FERROUS SO4 300 MG/5 ML ORAL SOLN UNIT DOSE CUPS GT SCH (22:43)
[2016-07-13] MEDS: MIRTAZAPINE 15 MG TABLET (FP) GT SCH (22:44)
[2016-07-14] MEDS: PIPERACILLIN/TAZOB 4.5 GM/100 ML PRE-DOCKED IVPB SCH ×3 (01:53→18:21)
[2016-07-14] MEDS: ALBUTEROL SO4 2.5/IPRATROPIUM 0.5 INH SOL 3 ML VIAL.NEB. NEB SCH ×4 (06:19→18:46)
[2016-07-14] MEDS: METOPROLOL TARTRATE 25 MG TABLET (FP) GT SCH ×3 (06:55→22:58)
[2016-07-14] MEDS: FUROSEMIDE 40 MG/5 ML UNIT-DOSE CUP GT SCH ×2 (06:55→16:23)
[2016-07-14] MEDS: NAPH,MB-DB/K PH,MBDB POWDER PACKET PEG SCH ×3 (06:56→22:58)
[2016-07-14 07:40] LABS: BASOPHIL 0.7 % (0-2.0); EOSINOPHIL 7.4 % (0-4.5); MCH 31.3 pg (25.7-33.7); MCHC 33.4 g/dl (32.0-35.9); MEAN CELL VOLUME 93.7 fl (80-96); MEAN PLT VOLUME 9.3 fl (7.5-11.1); NEUTROPHILS 51.2 % (42.8-82.8); PLATELET COUNT 250 K/MM3 (134-434); RDW 14.4 % (11.9-15.9); WHITE BLOOD COUNT 9.8 K/mm3 (4.0-10.0)
[2016-07-14 07:47] LABS: INR 1.51 (0.82-1.09); PROTHROMBIN TIME (PATIENT) 16.7 SEC (9.98-11.88)
[2016-07-14 08:08] LABS: ALBUMIN 2.2 g/dl (3.4-5.0); ANION GAP 1 (8-16); CALCIUM 8.1 mg/dL (8.5-10.1); CO2 37 mmol/L (21-32); GLUCOSE,RANDOM 84 mg/dL (74-106)
[2016-07-14 08:11] LABS: ALK PHOS 65 U/L (45-117); BILIRUBIN,TOTAL 0.5 mg/dL (0.2-1.0); CREATININE 0.5 mg/dL (0.7-1.3); SGOT/AST 15 U/L (15-37); SGPT/ALT 13 U/L (12-78); TOT PROT 6.4 g/dl (6.4-8.2)
[2016-07-14] MEDS ORDERED: PT OWN MED DRAWER 7, Y5N ONE ×5 (09:03→22:27)
[2016-07-14] MEDS: FLUDROCORTISONE ACETATE 0.1 MG TABLET (FP) GT SCH ×2 (10:45→22:58)
[2016-07-14] MEDS: AMINO ACIDS/PROTEIN HYDROLYS SUGAR-FREE 30 ML PACKET GT SCH ×2 (10:45→18:21)
[2016-07-14] MEDS: TRIAMCINOLONE ACET 0.025% CREAM 15 GM TUBE TP SCH ×2 (10:45→22:58)
[2016-07-14] MEDS: CARBIDOPA/LEVODOPA 25/100 TABLET (FP) GT SCH ×2 (10:46→22:58)
[2016-07-14] MEDS: POTASSIUM CHLORIDE 40 MEQ/30 ML UNIT DOSE CUP PO SCH ×2 (10:46→22:58)
[2016-07-14] MEDS: RANITIDINE HCL 150 MG TABLET (FP) PO SCH ×2 (10:46→22:58)
[2016-07-14] MEDS: DONEPEZIL HCL 10 MG TABLET (FP) GT SCH (10:46)
[2016-07-14] MEDS: ASCORBIC ACID 500 MG TABLET (FP) GT SCH (10:46)
[2016-07-14] MEDS: LACTOBACILLUS ACIDOPHILUS 1 EACH TAB (FP) GT SCH ×2 (10:46→22:58)
[2016-07-14] MEDS: MULTIVITAMINS (DAILY MVI) TABLET (FP) PO SCH (10:46)
[2016-07-14] MEDS: COLLAGENASE CLOSTRIDIUM HIST. 30 GRAMS TUBE TP SCH (10:46)
[2016-07-14] MEDS ORDERED: PICC LINE 8 ML FLUSH PROTOCOL IVPUSH PRN (10:51)
--- NOTE | 2016-07-14 10:55 | DS ---
Physical Examination Vital Signs: Vital Signs Temperature 97.7 F 07/14/16 06:00 Pulse Rate 66 07/14/16 06:00 Respiratory Rate 18 07/14/16 06:00 Blood Pressure 134/53 07/14/16 06:00 O2 Sat by Pulse Oximetry (%) 98 07/12/16 09:00 Constitutional: Yes: Calm Neck: Yes: Trachea Midline, Other (vent) Cardiovascular: Yes: Regular Rate and Rhythm, S1, S2 Respiratory: Yes: Mechanically Ventilated, Rhonchi Gastrointestinal: Yes: Normal Bowel Sounds, Soft, Other (g tube) Edema: Yes Neurological: Yes: Other (nonverbal) Labs: CBC, BMP 07/14/16 06:40 07/14/16 06:40 Discharge Summary Reason For Visit: UTI/FOOT INFECTION Current Active Problems Chronic osteomyelitis (Acute) Diarrhea (Acute) Foot infection (Acute) Foot ulcer (Acute) Pleural effusion (Acute) UTI (urinary tract infection) (Acute) Hospital Course: PCP: Jerzy Callaway - Admission Chief Complaint: sent in for left foot infection History of Present Illness: The patient is a 81 year old male with a significant past medical history of COPD with chronic respiratory failure s/p tracheostomy, hyperlipidemia, 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 The patient had had some ulcerations around Carri time but symptoms have worsened today as per nursing facility. Allergies: Latex, NKDA PCP: Dr. Callaway in ER WBC 13.5 and got zosyn and vanco now WBC is normal patient is no verbal aifb coumadin was held bc need of picc line placement seen by GI for intermittent diarrhea seen by vascular and chornic osteo to get picc line for 5 weeks of abx check vanco torugh MWF Condition: Improved - Instructions Diet, Activity, Other Instructions: [place] cath vancomyin and zosyn for 5 weeks check vanco trough MWF check INR MWF resume coumadin at [place] Referrals: Jerzy Callaway MD [Primary Care Provider] - Disposition: LONGTERM FACILITY - Home Medications Comprehensive Discharge Medication List: Ambulatory Orders Ferrous Sulfate 325 mg GT HS 02/27/15 Fludrocortisone Acetate [Florinef -] 0.1 mg GT BID 02/28/15 Acetaminophen [Tylenol .Regular Strength -] 650 mg NR Q4H PRN #0 tablet Scopolamine Hydrobromide [Transderm-Scop -] 1 patch TD Q72H patch.td72 Albuterol 2.5/Ipratropium 0.5 [Duoneb -] 1 neb IH QID 03/20/16 Ascorbic Acid [Vitamin C -] 500 mg GT DAILY 03/20/16 Carbidopa/Levodopa [Carbidopa-Levodopa 25-100 Tab] 1 each GT BID 03/20/16 Metoprolol Tartrate [Lopressor -] 12.5 mg GT TID tablet 03/27/16 Multivitamins [Tab-A-Vit -] 1 tab GT DAILY 04/30/16 Ranitidine [Zantac -] 150 mg GT BID 04/30/16 Furosemide Oral Solution [Lasix Oral Solution -] 40 mg GT BID@0600,1400 [facility] 01/18 Naph,Mb-Db/K pH,Mbdb [PHOS-NaK PACKET -] 1 packet PEG TID pow 05/12/16 Potassium Chloride Oral Soln [KCl Oral Solution -] 40 meq GT DAILY cup Aa/S [place]/Arg/C/Zn/Cu [Lps Critical Care Liquid] 30 ml PO DAILY Donepezil HCl [Aricept -] 10 mg PO DAILY 07/09/16 Lactobacillus Acidophilus [Bacid -] 1 tab PO BID 07/09/16 Loperamide HCl [Loperamide] 2 mg PO Q6H PRN 07/09/16 Mirtazapine [Remeron Soltab -] 15 mg PO DAILY 07/09/16 Warfarin Na [Coumadin -] 7 mg PO DAILY@1800 07/09/16
--- NOTE | 2016-07-14 14:23 | PN ---
Progress Note (short form) - Note Progress Note: spoke to jenniffer she kathy not give consent for picc line until dr kwong see patient again regarding wound to seee if debdrmienet is needed prior to dc and to [facility] come and see patient regading treatment of chronic diarrhea will cancel today discharge Problem List - Problems (1) Foot ulcer Code(s): L97.509 - NON-PRESSURE CHRONIC ULCER OTH PRT UNSP FOOT W UNSP SEVERITY (2) Foot infection Code(s): L08.9 - LOCAL INFECTION OF THE SKIN AND SUBCUTANEOUS TISSUE, UNSP (3) Chronic respiratory failure Code(s): J96.10 - CHRONIC RESPIRATORY FAILURE, UNSP W HYPOXIA OR HYPERCAPNIA Qualifiers: Respiratory failure complication: hypoxia Qualified Code(s): J96.11 - Chronic respiratory failure with hypoxia (4) Dysphagia Code(s): R13.10 - DYSPHAGIA, UNSPECIFIED (5) A-fib Code(s): I48.91 - UNSPECIFIED ATRIAL FIBRILLATION Qualifiers: Atrial fibrillation type: chronic Qualified Code(s): I48.2 - Chronic atrial fibrillation (6) Diarrhea Code(s): R19.7 - DIARRHEA, UNSPECIFIED (7) Parkinson disease Code(s): G20 - PARKINSON'S DISEASE
--- NOTE | 2016-07-14 14:38 | PN ---
Progress Note, Physician History of Present Illness: pulmonary poorly responsive on vent support ac mode , for picc line today - Current Medication List Current Medications: Active Medications Acetaminophen (Tylenol -) 650 mg NR Q4H PRN PRN Reason: PAIN 6-10 Albuterol/Ipratropium (Duoneb -) 1 amp NEB QIDR [facility] Last Admin: 07/14/16 11:39 Dose: 1 amp Amino Acids (Prostat Sugar-Free Packet -) 30 ml GT BID@0800,1730 [facility] Last Admin: 07/14/16 10:45 Dose: 30 ml Ascorbic Acid (Vitamin C -) 500 mg GT DAILY [facility] Last Admin: 07/14/16 10:46 Dose: 500 mg Carbidopa/Levodopa (Sinemet 25/100 -) 1 each GT BID [facility] Last Admin: 07/14/16 10:46 Dose: 1 each Collagenase (Santyl -) 1 applic TP DAILY [facility] Last Admin: 07/14/16 10:46 Dose: 1 applic Donepezil HCl (Aricept -) 10 mg GT DAILY [facility] Last Admin: 07/14/16 10:46 Dose: 10 mg Ferrous Sulfate (Feosol) 300 mg GT HS [facility] Last Admin: 07/13/16 22:43 Dose: 300 mg Fludrocortisone Acetate (Florinef -) 0.1 mg GT BID [facility] Last Admin: 07/14/16 10:45 Dose: 0.1 mg Furosemide (Lasix Oral Solution -) 40 mg GT BID@0600,1400 [facility] Last Admin: 07/14/16 06:55 Dose: 40 mg IV Flush (Picc Line Flush) 8 ml IVPUSH PRN PRN PRN Reason: Protocol Vancomycin HCl 1,500 mg/ (Dextrose) 500 mls @ 250 mls/hr IVPB DAILY@1600 [facility] Last Admin: 07/13/16 17:13 Dose: 250 mls/hr Lactobacillus Acidophilus (Bacid -) 1 tab GT BID [facility] Last Admin: 07/14/16 10:46 Dose: 1 tab Loperamide HCl (Imodium -) 2 mg GT Q6H PRN PRN Reason: DIARRHEA Metoprolol Tartrate (Lopressor -) 12.5 mg GT TID [facility] Last Admin: 07/14/16 06:55 Dose: 12.5 mg Mirtazapine (Remeron -) 15 mg GT HS [facility] Last Admin: 07/13/16 22:44 Dose: 15 mg Multivitamins/Minerals/Vitamin C (Tab-A-Vit -) 1 tab PO DAILY [facility] Last Admin: 07/14/16 10:46 Dose: 1 tab Piperacillin Sod/Tazobactam Sod (Zosyn 4.5gm Ivpb (Pre-Docked)) 4.5 gm IVPB Q8H -IV [facility] Last Admin: 07/14/16 10:47 Dose: 4.5 gm Potassium Chloride (Kcl Oral Solution -) 40 meq PO BID [facility] Last Admin: 07/14/16 10:46 Dose: 40 meq Potassium Phos/Sodium Phos (Phos-Nak Packet -) 1 packet PEG TID [facility] Last Admin: 07/14/16 06:56 Dose: 1 packet Ranitidine HCl (Zantac -) 150 mg PO BID [facility] Last Admin: 07/14/16 10:46 Dose: 150 mg Scopolamine HBr (Transderm-Scop -) 1 patch TD Q72H [facility] Last Admin: 07/12/16 22:52 Dose: 1 patch Triamcinolone Acetonide (Aristocort 0.025% Cream -) 1 applic TP BID [facility] Last Admin: 07/14/16 10:45 Dose: 1 applic Warfarin Sodium (Coumadin -) 5 mg PO DAILY@1800 [facility] - Objective Vital Signs: Vital Signs Temperature 97.9 F 07/14/16 10:00 Pulse Rate 64 07/14/16 10:35 Respiratory Rate 13 07/14/16 10:35 Blood Pressure 100/67 07/14/16 10:00 O2 Sat by Pulse Oximetry (%) 98 07/14/16 10:35 Constitutional: Yes: Well Nourished, Other (poorly responsive) Eyes: Yes: WNL HENT: Yes: WNL Neck: Yes: Supple (trach) Cardiovascular: Yes: Pulse Irregular, S1, S2 Respiratory: Yes: Diminished Gastrointestinal: Yes: WNL Extremities: Yes: Other (left foot ulcer) Peripheral Pulses WNL: Yes Labs: CBC, BMP 07/14/16 06:40 07/14/16 06:40 INR, PTT INR 1.51 (0.82-1.09) H 07/14/16 06:40 Assessment/Plan Problem List - Problems (1) Chronic osteomyelitis Code(s): M86.60 - OTHER CHRONIC OSTEOMYELITIS, UNSPECIFIED SITE (2) Foot infection Code(s): L08.9 - LOCAL INFECTION OF THE SKIN AND SUBCUTANEOUS TISSUE, UNSP (3) Foot ulcer Code(s): L97.509 - NON-PRESSURE CHRONIC ULCER OTH PRT UNSP FOOT W UNSP SEVERITY (4) A-fib Code(s): I48.91 - UNSPECIFIED ATRIAL FIBRILLATION Qualifiers: Atrial fibrillation type: chronic Qualified Code(s): I48.2 - Chronic atrial fibrillation (5) CHF (congestive heart failure) Code(s): I50.9 - HEART FAILURE, UNSPECIFIED (6) Chronic atrial fibrillation Code(s): I48.2 - CHRONIC ATRIAL FIBRILLATION (7) Chronic respiratory failure Code(s): J96.10 - CHRONIC RESPIRATORY FAILURE, UNSP W HYPOXIA OR HYPERCAPNIA Qualifiers: Respiratory failure complication: hypoxia Qualified Code(s): J96.11 - Chronic respiratory failure with hypoxia (8) Dementia Code(s): F03.90 - UNSPECIFIED DEMENTIA WITHOUT BEHAVIORAL DISTURBANCE Qualifiers: Dementia type: Parkinson's disease Dementia behavioral disturbance: with behavioral disturbance Qualified Code(s): G20 - Parkinson's disease; F02.81 - Dementia in other diseases classified elsewhere with behavioral disturbance (9) Hyperlipemia Code(s): E78.5 - HYPERLIPIDEMIA, UNSPECIFIED (10) Leg swelling Code(s): M79.89 - OTHER SPECIFIED SOFT TISSUE DISORDERS (11) Parkinson disease Code(s): G20 - PARKINSON'S DISEASE (12) Pressure ulcer Code(s): L89.90 - PRESSURE ULCER OF UNSPECIFIED SITE, UNSPECIFIED STAGE Qualifiers: Pressure ulcer stage: stage II Qualified Code(s): L89.92 - Pressure ulcer of unspecified site, stage 2 (13) Venous insufficiency Code(s): I87.2 - VENOUS INSUFFICIENCY (CHRONIC) (PERIPHERAL) (14) Ventilator dependent Code(s): Z99.11 - DEPENDENCE ON RESPIRATOR [VENTILATOR] STATUS (15) Pleural effusion Code(s): J90 - PLEURAL EFFUSION, NOT ELSEWHERE CLASSIFIED Assessment/Plan PLAN: AC Mode of vent 40% FiO2 Wound care per surgery ABX Per ID Not a candidate for wean VTE prophylaxis Antibiotics as per ID Picc line DR MOJICA
--- NOTE | 2016-07-14 14:59 | PN ---
Physical Exam: SUBJECTIVE: Patient now undergoing PICC line placement. Waiting for him to come back. OBJECTIVE: Vital Signs Period Temp Pulse Resp BP Sys/Limon Pulse Ox Last 24 Hr 97.7 F-98.8 F 64-74 12-18 100-134/53-74 98 GENERAL: The patient is awake, alert, and fully oriented, in no acute distress. HEAD: Normal with no signs of trauma. EYES: PERRL, extraocular movements intact, sclera anicteric, conjunctiva clear. No ptosis. ENT: Ears normal, nares patent, oropharynx clear without exudates, moist mucous membranes. NECK: Trachea midline, full range of motion, supple. LUNGS: Breath sounds equal, clear to auscultation bilaterally, no wheezes, no crackles, no accessory muscle use. HEART: Regular rate and rhythm, S1, S2 without murmur, rub or gallop. ABDOMEN: Soft, nontender, nondistended, normoactive bowel sounds, no guarding, no rebound, no hepatosplenomegaly, no masses. EXTREMITIES: 2+ pulses, warm, well-perfused, no edema. NEUROLOGICAL: Cranial nerves II through XII grossly intact. Normal speech, gait not observed. PSYCH: Normal mood, normal affect. SKIN: Warm, dry, normal turgor, no rashes or lesions noted Laboratory Results - last 24 hr 07/14/16 07/14/16 07/14/16 06:40 06:40 06:40 WBC 9.8 RBC 3.71 L Hgb 11.6 L Hct 34.8 L MCV 93.7 MCHC 33.4 RDW 14.4 Plt Count 250 MPV 9.3 Neutrophils % 51.2 Lymphocytes % 30.2 Monocytes % 10.5 H Eosinophils % 7.4 H Basophils % 0.7 INR 1.51 H Sodium 139 Potassium 3.5 Chloride 101 Carbon Dioxide 37 H Anion Gap 1 L BUN 16 Creatinine 0.5 L Creat Clearance w eGFR > 60 Random Glucose 84 Calcium 8.1 L Total Bilirubin 0.5 D AST 15 ALT 13 Alkaline Phosphatase 65 Total Protein 6.4 Albumin 2.2 L Active Medications Generic Name Dose Route Start Last Admin Trade Name Freq PRN Reason Stop Dose Admin Acetaminophen 650 mg 07/09/16 19:42 Tylenol - NR Q4H PRN PAIN 6-10 Albuterol/Ipratropium 1 amp 07/10/16 00:00 07/14/16 11:39 Duoneb - NEB 1 amp QIDR [facility] Administration Amino Acids 30 ml 07/11/16 17:30 07/14/16 10:45 Prostat Sugar-Free Packet - GT 30 ml BID@0800,1730 [facility] Administration Ascorbic Acid 500 mg 07/10/16 10:00 07/14/16 10:46 Vitamin C - GT 500 mg DAILY [facility] Administration Carbidopa/Levodopa 1 each 07/09/16 22:00 07/14/16 10:46 Sinemet 25/100 - GT 1 each BID [facility] Administration Collagenase 1 applic 07/10/16 12:00 07/14/16 10:46 Santyl - TP 1 applic DAILY [facility] Administration Donepezil HCl 10 mg 07/10/16 10:00 07/14/16 10:46 Aricept - GT 10 mg DAILY [facility] Administration Ferrous Sulfate 300 mg 07/09/16 22:00 07/13/16 22:43 Feosol GT 300 mg HS [facility] Administration Fludrocortisone Acetate 0.1 mg 07/09/16 22:00 07/14/16 10:45 Florinef - GT 0.1 mg BID [facility] Administration Furosemide 40 mg 07/10/16 06:00 07/14/16 06:55 Lasix Oral Solution - GT 40 mg BID@0600,1400 [facility] Administration IV Flush 8 ml 07/14/16 10:51 Picc Line Flush IVPUSH PRN PRN Protocol Vancomycin HCl 1,500 mg/ 500 mls @ 250 mls/hr 07/10/16 16:00 07/13/16 17:13 Dextrose IVPB 250 mls/hr DAILY@1600 [facility] Administration Lactobacillus Acidophilus 1 tab 07/09/16 22:00 07/14/16 10:46 Bacid - GT 1 tab BID [facility] Administration Loperamide HCl 2 mg 07/09/16 19:54 Imodium - GT Q6H PRN DIARRHEA Metoprolol Tartrate 12.5 mg 07/09/16 22:00 07/14/16 06:55 Lopressor - GT 12.5 mg TID [facility] Administration Mirtazapine 15 mg 07/10/16 22:00 07/13/16 22:44 Remeron - GT 15 mg HS [facility] Administration Multivitamins/Minerals/Vitamin C 1 tab 07/10/16 10:00 07/14/16 10:46 Tab-A-Vit - PO 1 tab DAILY [facility] Administration Piperacillin Sod/Tazobactam Sod 4.5 gm 07/10/16 18:00 07/14/16 10:47 Zosyn 4.5gm Ivpb (Pre-Docked) IVPB 4.5 gm Q8H-IV [facility] Administration Potassium Chloride 40 meq 07/11/16 22:00 07/14/16 10:46 Kcl Oral Solution - PO 40 meq BID [facility] Administration Potassium Phos/Sodium Phos 1 packet 07/09/16 22:00 07/14/16 06:56 Phos-Nak Packet - PEG 1 packet TID [facility] Administration Ranitidine HCl 150 mg 07/09/16 22:00 07/14/16 10:46 Zantac - PO 150 mg BID [facility] Administration Scopolamine HBr 1 patch 07/09/16 22:00 07/12/16 22:52 Transderm-Scop - TD 1 patch Q72H [facility] Administration Triamcinolone Acetonide 1 applic 07/11/16 22:00 07/14/16 10:45 Aristocort 0.025% Cream - TP 1 applic BID [facility] Administration Warfarin Sodium 5 mg 07/11/16 18:00 Coumadin - PO DAILY@1800 [facility] ASSESSMENT/PLAN:
--- NOTE | 2016-07-14 16:21 | PN ---
GI Progress Note Subjective: 1 loose BM today per nursing Stool c. diff, culture negative Stool isospora/microsporidia pending Stool norovirus pending - Objective Vital Signs: Vital Signs Temperature 97.9 F 07/14/16 10:00 Pulse Rate 64 07/14/16 10:35 Respiratory Rate 12 07/14/16 14:35 Blood Pressure 100/67 07/14/16 10:00 O2 Sat by Pulse Oximetry (%) 98 07/14/16 10:35 Constitutional: Calm Eyes: No: Sclera Icterus Gastrointestinal Inspection: No: Distention ...Auscultate: Yes: Normoactive Bowel Sounds ...Palpate: No: Tenderness (no grimacing upon palpation) Edema: Yes Labs: CBC, BMP 07/14/16 06:40 07/14/16 06:40 INR, PTT INR 1.51 (0.82-1.09) H 07/14/16 06:40 Hepatic Panel Total Bilirubin 0.5 mg/dL (0.2-1.0) D 07/14/16 06:40 AST 15 U/L (15-37) 07/14/16 06:40 ALT 13 U/L (12-78) 07/14/16 06:40 Alkaline Phosphatase 65 U/L (45-117) 07/14/16 06:40 Albumin 2.2 g/dl (3.4-5.0) L 07/14/16 06:40 Problem List - Problems (1) Diarrhea Assessment/Plan: Chronic loose BM's described however 1 BM today Send stool for O&P Please follow recommendations outlined in initial consult including changing feeds to elemental formula and having nutrionist see him Stool studies pending Code(s): R19.7 - DIARRHEA, UNSPECIFIED
[2016-07-14] MEDS: VANCOMYCIN 1,500 MG in DEXTROSE 5%-WATER - 500 ML IVPB SCH (16:22)
--- NOTE | 2016-07-14 20:08 | PN ---
Progress Note (short form) - Note Progress Note: Vascular Surgery Pt seen and examined. S/P picc line. Left lateral foot ulcer debrided on admission. Cont santyl. No need for debridement at this time. Bone can be probed in wound. IV antibiotics. Gutierrez Rosario DO
--- NOTE | 2016-07-14 21:22 | PN ---
Teaching Attending Note Name of Resident: Kaycee Hernandez ATTENDING PHYSICIAN STATEMENT I saw and evaluated the patient. I reviewed the resident's note and discussed the case with the resident. I agree with the resident's findings and plan as documented. SUBJECTIVE: OBJECTIVE: ASSESSMENT AND PLAN: Osteomyelitis L heel Polymicrobial wound c/s S/P PICC for outpatient antibiotics Continue vancomycin/ zosyn
[2016-07-14] MEDS: FERROUS SO4 300 MG/5 ML ORAL SOLN UNIT DOSE CUPS GT SCH (22:58)
[2016-07-14] MEDS: MIRTAZAPINE 15 MG TABLET (FP) GT SCH (22:58)
[2016-07-15] MEDS: ALBUTEROL SO4 2.5/IPRATROPIUM 0.5 INH SOL 3 ML VIAL.NEB. NEB SCH ×3 (00:31→11:15)
[2016-07-15] MEDS: PIPERACILLIN/TAZOB 4.5 GM/100 ML PRE-DOCKED IVPB SCH ×2 (01:58→11:29)
[2016-07-15] MEDS ORDERED: PT OWN MED DRAWER 7, Y5N ONE ×2 (06:03→11:23)
[2016-07-15] MEDS: FUROSEMIDE 40 MG/5 ML UNIT-DOSE CUP GT SCH (06:57)
[2016-07-15] MEDS: NAPH,MB-DB/K PH,MBDB POWDER PACKET PEG SCH (06:57)
[2016-07-15] MEDS: METOPROLOL TARTRATE 25 MG TABLET (FP) GT SCH (06:57)
[2016-07-15 09:36] VITALS: BP 131/82; PULSE 65; TEMP 97.9
[2016-07-15] MEDS: RANITIDINE HCL 150 MG TABLET (FP) PO SCH (11:29)
[2016-07-15] MEDS: AMINO ACIDS/PROTEIN HYDROLYS SUGAR-FREE 30 ML PACKET GT SCH (11:29)
[2016-07-15] MEDS: LACTOBACILLUS ACIDOPHILUS 1 EACH TAB (FP) GT SCH (11:29)
[2016-07-15] MEDS: MULTIVITAMINS (DAILY MVI) TABLET (FP) PO SCH (11:29)
[2016-07-15] MEDS: CARBIDOPA/LEVODOPA 25/100 TABLET (FP) GT SCH (11:29)
[2016-07-15] MEDS: FLUDROCORTISONE ACETATE 0.1 MG TABLET (FP) GT SCH (11:29)
[2016-07-15] MEDS: DONEPEZIL HCL 10 MG TABLET (FP) GT SCH (11:29)
[2016-07-15] MEDS: POTASSIUM CHLORIDE 40 MEQ/30 ML UNIT DOSE CUP PO SCH (11:29)
[2016-07-15] MEDS: ASCORBIC ACID 500 MG TABLET (FP) GT SCH (11:29)
[2016-07-15] MEDS: TRIAMCINOLONE ACET 0.025% CREAM 15 GM TUBE TP SCH (11:30)
[2016-07-15] MEDS: COLLAGENASE CLOSTRIDIUM HIST. 30 GRAMS TUBE TP SCH (11:31)
--- NOTE | 2016-07-15 11:50 | PN ---
Physical Exam: SUBJECTIVE: Patient seen and examined at bed side this morning. Baseline non verbal, trach on a/c vent @ /400/40/5 OBJECTIVE: Vital Signs Period Temp Pulse Resp BP Sys/Limon Pulse Ox Last 24 Hr 97.4 F-98.5 F 63-70 12-15 125-139/75-82 GENERAL: Awake, non verbal, doesn't follow all the commands, tracheostomy in place, bauman catheter in place, A/C /40/5 HEAD: Normal with no signs of trauma. EYES: Pupils equal, round and reactive to light. EARS, NOSE, THROAT: Ears normal NECK: No JVD LUNGS: Breath sounds equal, clear to auscultation bilaterally. No wheeze noted. HEART: Irregularly irregular, tachycardia, S1 and S2 heard, murmur couldn't be appreciated. ABDOMEN: Tube near the umbilicus intact, Soft, nontender, not distended, normoactive bowel sounds, no guarding, no rebound, no masses. No hepatomegaly or splenomegaly. MUSCULOSKELETAL: Stiff during range of motion. UPPER EXTREMITIES: 2+ pulses, warm, well-perfused. Edema + LOWER EXTREMITIES: [id number] yellow central lesion at the lateral surface of left foot, 2+ pulses, warm, well-perfused. B/L pitting edema, chronic venous stasis. NEUROLOGICAL: Awake, non communicative. Decubiti ulcer: Left Buttock 4cm x 6 cm with opening; Right buttock 3cm x 4 cm with opening, Left lateral foot-4x3cm. PSYCHIATRIC: No eye contact. SKIN: Warm, dry, normal turgor, no rashes or lesions noted. Active Medications Generic Name Dose Route Start Last Admin Trade Name Freq PRN Reason Stop Dose Admin Acetaminophen 650 mg 07/09/16 19:42 Tylenol - NR Q4H PRN PAIN 6-10 Albuterol/Ipratropium 1 amp 07/10/16 00:00 07/15/16 07:09 Duoneb - NEB 1 amp QIDR [facility]MM[facility]EL Administration Amino Acids 30 ml 07/11/16 17:30 07/15/16 11:29 Prostat Sugar-Free Packet - GT 30 ml BID@0800,1730 [facility] Administration Ascorbic Acid 500 mg 07/10/16 10:00 07/15/16 11:29 Vitamin C - GT 500 mg DAILY [facility] Administration Carbidopa/Levodopa 1 each 07/09/16 22:00 07/15/16 11:29 Sinemet 25/100 - GT 1 each BID [facility] Administration Collagenase 1 applic 07/10/16 12:00 07/15/16 11:31 Santyl - TP 1 applic DAILY [facility] Administration Donepezil HCl 10 mg 07/10/16 10:00 07/15/16 11:29 Aricept - GT 10 mg DAILY [facility] Administration Ferrous Sulfate 300 mg 07/09/16 22:00 07/14/16 22:58 Feosol GT 300 mg HS [facility] Administration Fludrocortisone Acetate 0.1 mg 07/09/16 22:00 07/15/16 11:29 Florinef - GT 0.1 mg BID [facility] Administration Furosemide 40 mg 07/10/16 06:00 07/15/16 06:57 Lasix Oral Solution - GT 40 mg BID@0600,1400 [facility] Administration IV Flush 8 ml 07/14/16 10:51 Picc Line Flush IVPUSH PRN PRN Protocol Vancomycin HCl 1,500 mg/ 500 mls @ 250 mls/hr 07/10/16 16:00 07/14/16 16:22 Dextrose IVPB 250 mls/hr DAILY@1600 [facility] Administration Lactobacillus Acidophilus 1 tab 07/09/16 22:00 07/15/16 11:29 Bacid - GT 1 tab BID [facility] Administration Loperamide HCl 2 mg 07/09/16 19:54 Imodium - GT Q6H PRN DIARRHEA Metoprolol Tartrate 12.5 mg 07/09/16 22:00 07/15/16 06:57 Lopressor - GT 12.5 mg TID [facility] Administration Mirtazapine 15 mg 07/10/16 22:00 07/14/16 22:58 Remeron - GT 15 mg HS [facility] Administration Multivitamins/Minerals/Vitamin C 1 tab 07/10/16 10:00 07/15/16 11:29 Tab-A-Vit - PO 1 tab DAILY [facility] Administration Piperacillin Sod/Tazobactam Sod 4.5 gm 07/10/16 18:00 07/15/16 11:29 Zosyn 4.5gm Ivpb (Pre-Docked) IVPB 4.5 gm Q8H-IV [facility] Administration Potassium Chloride 40 meq 07/11/16 22:00 07/15/16 11:29 Kcl Oral Solution - PO 40 meq BID [facility] Administration Potassium Phos/Sodium Phos 1 packet 07/09/16 22:00 07/15/16 06:57 Phos-Nak Packet - PEG 1 packet TID [facility] Administration Ranitidine HCl 150 mg 07/09/16 22:00 07/15/16 11:29 Zantac - PO 150 mg BID [facility] Administration Scopolamine HBr 1 patch 07/09/16 22:00 07/12/16 22:52 Transderm-Scop - TD 1 patch Q72H [facility] Administration Triamcinolone Acetonide 1 applic 07/11/16 22:00 07/15/16 11:30 Aristocort 0.025% Cream - TP 1 applic BID [facility] Administration Warfarin Sodium 5 mg 07/11/16 18:00 Coumadin - PO DAILY@1800 [facility] PICC line placement 07/14/2016 ASSESSMENT/PLAN: 81 year old male with significant past medical hx of COPD with chronic respiratory distress s/p trach, hyperlipidemia, CAD, CVA with right sided hemiplegia, atrial fibrillation, dementia, and parkinsonism was brought in from the senior living for PICC line placement to treat possible osteomyelitis of the left foot. # Possible chronic osteomyelitis of left foot On Examination: left foot [id number] yellow central lesion at the lateral surface of left foot One dose of Vancomycin and Zosyn given in the ED. IV Zosyn and Vancomycin to be continued Upon discharge, zosyn to be continued for 5 weeks from PICC line placed on 07/14/2016 Vascular surgery consult appreciated. Would consider a bone biopsy considering multiple drug resistance. Previously patient has been positive for: Acinetobacter/Beta Lactam Step- Proteus mirabilis/E. faecalis- 03/20/2016 Pseudomonas 2015. Case seen and discussed with Dr. Kunz. Thank you for the consultative opportunity. Visit type - Emergency Visit Emergency Visit: Yes ED Registration Date: 07/09/16 Care time: The patient presented to the Emergency Department on the above date and was hospitalized for further evaluation of their emergent condition. - New Patient This patient is new to me today: No - Critical Care Critical Care patient: No
--- NOTE | 2016-07-15 12:47 | PN ---
Teaching Attending Note Name of Resident: Kaycee Hernandez ATTENDING PHYSICIAN STATEMENT I saw and evaluated the patient. I reviewed the resident's note and discussed the case with the resident. I agree with the resident's findings and plan as documented. SUBJECTIVE: Poorly responsive No acute distress Afebrile OBJECTIVE: Cor S1S2 decreased BS bilaterally Abdomen obese, soft, non tender + periph edema + dry ulcer, L 5th MTH ASSESSMENT AND PLAN: Chronic osteomyelitis Resp failure PICC inserted Continue zosyn 3.375gm IVPB q8h alone x 5w
--- NOTE | 2016-07-15 12:50 | PN ---
Progress Note, Physician Chief Complaint: patient afebrile wbc normal - Current Medication List Current Medications: Active Medications Acetaminophen (Tylenol -) 650 mg NR Q4H PRN PRN Reason: PAIN 6-10 Albuterol/Ipratropium (Duoneb -) 1 amp NEB QIDR [facility] Last Admin: 07/15/16 11:15 Dose: 1 amp Amino Acids (Prostat Sugar-Free Packet -) 30 ml GT BID@0800,1730 [facility] Last Admin: 07/15/16 11:29 Dose: 30 ml Ascorbic Acid (Vitamin C -) 500 mg GT DAILY [facility] Last Admin: 07/15/16 11:29 Dose: 500 mg Carbidopa/Levodopa (Sinemet 25/100 -) 1 each GT BID [facility] Last Admin: 07/15/16 11:29 Dose: 1 each Collagenase (Santyl -) 1 applic TP DAILY [facility] Last Admin: 07/15/16 11:31 Dose: 1 applic Donepezil HCl (Aricept -) 10 mg GT DAILY [facility] Last Admin: 07/15/16 11:29 Dose: 10 mg Ferrous Sulfate (Feosol) 300 mg GT [facility] Last Admin: 07/14/16 22:58 Dose: 300 mg Fludrocortisone Acetate (Florinef -) 0.1 mg GT BID [facility] Last Admin: 07/15/16 11:29 Dose: 0.1 mg Furosemide (Lasix Oral Solution -) 40 mg GT BID@0600,1400 [facility] Last Admin: 07/15/16 06:57 Dose: 40 mg IV Flush (Picc Line Flush) 8 ml IVPUSH PRN PRN PRN Reason: Protocol Vancomycin HCl 1,500 mg/ (Dextrose) 500 mls @ 250 mls/hr IVPB DAILY@1600 [facility] Last Admin: 07/14/16 16:22 Dose: 250 mls/hr Lactobacillus Acidophilus (Bacid -) 1 tab GT BID [facility] Last Admin: 07/15/16 11:29 Dose: 1 tab Loperamide HCl (Imodium -) 2 mg GT Q6H PRN PRN Reason: DIARRHEA Metoprolol Tartrate (Lopressor -) 12.5 mg GT TID [facility] Last Admin: 07/15/16 06:57 Dose: 12.5 mg Mirtazapine (Remeron -) 15 mg GT HS [facility] Last Admin: 07/14/16 22:58 Dose: 15 mg Multivitamins/Minerals/Vitamin C (Tab-A-Vit -) 1 tab PO DAILY [facility] Last Admin: 07/15/16 11:29 Dose: 1 tab Piperacillin Sod/Tazobactam Sod (Zosyn 4.5gm Ivpb (Pre-Docked)) 4.5 gm IVPB Q8H -IV [facility] Last Admin: 07/15/16 11:29 Dose: 4.5 gm Potassium Chloride (Kcl Oral Solution -) 40 meq PO BID [facility] Last Admin: 07/15/16 11:29 Dose: 40 meq Potassium Phos/Sodium Phos (Phos-Nak Packet -) 1 packet PEG TID [facility] Last Admin: 07/15/16 06:57 Dose: 1 packet Ranitidine HCl (Zantac -) 150 mg PO BID [facility] Last Admin: 07/15/16 11:29 Dose: 150 mg Scopolamine HBr (Transderm-Scop -) 1 patch TD Q72H [facility] Last Admin: 07/12/16 22:52 Dose: 1 patch Triamcinolone Acetonide (Aristocort 0.025% Cream -) 1 applic TP BID [facility] Last Admin: 07/15/16 11:30 Dose: 1 applic Warfarin Sodium (Coumadin -) 6 mg PO DAILY@1800 [facility] - Objective Vital Signs: Vital Signs Temperature 97.9 F 07/15/16 09:36 Pulse Rate 65 07/15/16 09:36 Respiratory Rate 15 07/15/16 10:30 Blood Pressure 131/82 07/15/16 09:36 O2 Sat by Pulse Oximetry (%) 98 07/14/16 10:35 Constitutional: Yes: Calm, Other (non verbal) Cardiovascular: Yes: Regular Rate and Rhythm, S1, S2 Respiratory: Yes: Mechanically Ventilated Gastrointestinal: Yes: Normal Bowel Sounds, Soft, Other (g tube) Edema: Yes Labs: CBC, BMP 07/14/16 06:40 07/14/16 06:40 INR, PTT INR 1.51 (0.82-1.09) H 07/14/16 06:40 Problem List - Problems (1) Foot ulcer Assessment/Plan: seen by wound care team iv abx possible six weeks for chronic osteo picc line on thursday jorge will hold given elevated inr and needs picc line check ESR ad CRP--elevated ID eval noted vacno and zosyn for 6 weeks wound culture sent xray foot noted for foot swellig Code(s): L97.509 - NON-PRESSURE CHRONIC ULCER OTH PRT UNSP FOOT W UNSP SEVERITY (2) Foot infection Assessment/Plan: see above Code(s): L08.9 - LOCAL INFECTION OF THE SKIN AND SUBCUTANEOUS TISSUE, UNSP (3) Chronic respiratory failure Assessment/Plan: vent support scoploamine for secretions pleural effsuion on cxr lasix and k dur Code(s): J96.10 - CHRONIC RESPIRATORY FAILURE, UNSP W HYPOXIA OR HYPERCAPNIA Qualifiers: Respiratory failure complication: hypoxia Qualified Code(s): J96.11 - Chronic respiratory failure with hypoxia (4) Dysphagia Assessment/Plan: feeding via peg tube feeds adjusted per GI notes Code(s): R13.10 - DYSPHAGIA, UNSPECIFIED (5) A-fib Assessment/Plan: restart coumadin since picc has been placed Code(s): I48.91 - UNSPECIFIED ATRIAL FIBRILLATION Qualifiers: Atrial fibrillation type: chronic Qualified Code(s): I48.2 - Chronic atrial fibrillation (6) Diarrhea Assessment/Plan: so only one BM here is hosptial seen by GI all studies cultures negative tube feed change to elemental per gi notes Microbiology 07/13/16 04:00 Stool Clostridium difficile Antigen (FAVIAN) - Final 07/13/16 04:00 Stool Clostridium difficile Toxin Assay - Final 07/12/16 06:12 Stool Salmonella/Shigella Culture - Final 07/12/16 06:12 Stool Escherichia coli 0157 Culture - Final NO GROWTH OF SALMONELLA OR SHIGELLA SPECIES OBTAINED NO GROWTH OF CAMPYLOBACTER SPECIES OBTAINED NO GROWTH OF YERSINIA SPECIES OBTAINED NO GROWTH OF VIBRIO SPECIES OBTAINED NO GROWTH OF E COLI 0157 OBTAINED 07/12/16 06:12 Stool Gram Stain - Final 07/12/16 06:12 Stool Norovirus GI - Preliminary 07/12/16 06:12 Stool Microsporidia Stain - Preliminary 07/12/16 06:12 Stool Isospora Smear (FAVIAN) - Preliminary Code(s): R19.7 - DIARRHEA, UNSPECIFIED (7) Parkinson disease Assessment/Plan: sinemet cortisone cream for skin rash Code(s): G20 - PARKINSON'S DISEASE
--- NOTE | 2016-07-15 13:05 | PN ---
Progress Note (short form) - Note Progress Note: PULMONARY Vented on volume assist control. No fevers recorded. Last Vital Signs Temp Pulse Resp BP Pulse Ox 97.9 F 65 15 131/82 98 07/15/16 09:36 07/15/16 09:36 07/15/16 10:30 07/15/16 09:36 07/14/16 10:35 Gen: vented, poorly responsive Heart: RRR Lung: decreased breath sounds at the bases Abd: soft, nontender Ext: + edema CBC, BMP 07/14/16 06:40 07/14/16 06:40 Active Medications Acetaminophen (Tylenol -) 650 mg NR Q4H PRN PRN Reason: PAIN 6-10 Albuterol/Ipratropium (Duoneb -) 1 amp NEB QIDR [facility] Last Admin: 07/15/16 11:15 Dose: 1 amp Amino Acids (Prostat Sugar-Free Packet -) 30 ml GT BID@0800,1730 [facility] Last Admin: 07/15/16 11:29 Dose: 30 ml Ascorbic Acid (Vitamin C -) 500 mg GT DAILY [facility] Last Admin: 07/15/16 11:29 Dose: 500 mg Carbidopa/Levodopa (Sinemet 25/100 -) 1 each GT BID [facility] Last Admin: 07/15/16 11:29 Dose: 1 each Collagenase (Santyl -) 1 applic TP DAILY [facility] Last Admin: 07/15/16 11:31 Dose: 1 applic Donepezil HCl (Aricept -) 10 mg GT DAILY [facility] Last Admin: 07/15/16 11:29 Dose: 10 mg Ferrous Sulfate (Feosol) 300 mg GT HS [facility] Last Admin: 07/14/16 22:58 Dose: 300 mg Fludrocortisone Acetate (Florinef -) 0.1 mg GT BID [facility] Last Admin: 07/15/16 11:29 Dose: 0.1 mg Furosemide (Lasix Oral Solution -) 40 mg GT BID@0600,1400 [facility] Last Admin: 07/15/16 06:57 Dose: 40 mg IV Flush (Picc Line Flush) 8 ml IVPUSH PRN PRN PRN Reason: Protocol Lactobacillus Acidophilus (Bacid -) 1 tab GT BID [facility] Last Admin: 07/15/16 11:29 Dose: 1 tab Loperamide HCl (Imodium -) 2 mg GT Q6H PRN PRN Reason: DIARRHEA Metoprolol Tartrate (Lopressor -) 12.5 mg GT TID [facility] Last Admin: 07/15/16 06:57 Dose: 12.5 mg Mirtazapine (Remeron -) 15 mg GT HS [facility] Last Admin: 07/14/16 22:58 Dose: 15 mg Multivitamins/Minerals/Vitamin C (Tab-A-Vit -) 1 tab PO DAILY [facility] Last Admin: 07/15/16 11:29 Dose: 1 tab Piperacillin Sod/Tazobactam Sod (Zosyn 4.5gm Ivpb (Pre-Docked)) 4.5 gm IVPB Q8H -IV [facility] Last Admin: 07/15/16 11:29 Dose: 4.5 gm Potassium Chloride (Kcl Oral Solution -) 40 meq PO BID [facility] Last Admin: 07/15/16 11:29 Dose: 40 meq Ranitidine HCl (Zantac -) 150 mg PO BID [facility] Last Admin: 07/15/16 11:29 Dose: 150 mg Scopolamine HBr (Transderm-Scop -) 1 patch TD Q72H [facility] Last Admin: 07/12/16 22:52 Dose: 1 patch Triamcinolone Acetonide (Aristocort 0.025% Cream -) 1 applic TP BID [facility] Last Admin: 07/15/16 11:30 Dose: 1 applic Warfarin Sodium (Coumadin -) 6 mg PO DAILY@1800 [facility] A/P Chronic Respiratory Failure Osteomyelitis Atrial Fibrillation CHF Parkinsons Disesase - antibiotics per ID - wound care - continue volume assist control - poor candidate for weaning - enteral feeds - DVT/GI prophylaxis
[2016-07-15] MEDS ORDERED: WARFARIN NA 3 MG TABLET PO SCH (18:00)
== END 2016-07-15 14:40 | DRG 540 ==
LOC: JER 14:55 → JERBED 18:56 → UNDOADMIN 18:56 → JERBED 19:45 → J5S 07-10 00:47
PROVIDERS: ADMIT Family Medicine; ATTEND Family Medicine
PROC: 02HV33Z Insertion of Infusion Device into Superior Vena Cava, Percutaneous Approach (ICD-10-PCS; principal; 2016-07-14)
PROC: B5181ZA Fluoroscopy of Superior Vena Cava using Low Osmolar Contrast, Guidance (ICD-10-PCS; 2016-07-14)
DX: M86.60 Other chronic osteomyelitis, unspecified site (principal); L97.429 Non-pressure chronic ulcer of left heel and midfoot with unspecified severity; L03.116 Cellulitis of left lower limb; I69.351 Hemiplegia and hemiparesis following cerebral infarction affecting right dominant side; J96.11 Chronic respiratory failure with hypoxia; Z99.11 Dependence on respirator [ventilator] status; Z93.0 Tracheostomy status; E78.00 Pure hypercholesterolemia, unspecified; F03.90 Unspecified dementia, unspecified severity, without behavioral disturbance, psychotic disturbance, mood disturbance, and anxiety; G20 Parkinson's disease; I87.8 Other specified disorders of veins; L89.320 Pressure ulcer of left buttock, unstageable; L89.312 Pressure ulcer of right buttock, stage 2; L89.892 Pressure ulcer of other site, stage 2; N40.0 Benign prostatic hyperplasia without lower urinary tract symptoms; R19.7 Diarrhea, unspecified; I87.2 Venous insufficiency (chronic) (peripheral); R13.10 Dysphagia, unspecified; I48.2 Chronic atrial fibrillation
CPT/HCPCS: 36415; 36569; 71010-TC; 73630-TC-LT; 77001-TC; 77002-TC; 80053; 81003; 81015; 82550; 83605; 83735; 84484; 85025; 85610; 85651; 85730; 86140; 86850; 86900; 86901; 87015; 87040; 87045; 87046; 87070; 87086; 87186; 87205; 87207; 87324; 87449; 87798; 93005; 93010; 94002; 94640; 99285-25; C1751; G0480

== ENCOUNTER 2016-08-29 19:21 | Inpatient (IN) | payer OTHER, BC ==
[2016-08-29] MEDS ORDERED: SODIUM CHLORIDE 0.9% 1000 ML INFUS.BAG IV PRN (20:00)
[2016-08-29] MEDS ORDERED: SODIUM CHLORIDE 1,000 ML IV STA (20:01)
[2016-08-29] MEDS ORDERED: PIPERACILLIN/TAZOB 3.375 GM/50 ML PRE-DOCKED IVPB ONE (20:01)
--- NOTE | 2016-08-29 20:17 | PDOC ---
History of Present Illness - General History Source: Jail Records, Old Records Exam Limitations: Clinical Condition - History of Present Illness Initial Comments: 08/29/16 20:50 The patient is an 81 year old male, with a significant past medical history of hyperlipidemia, atrial fibrillation, COPD, chronic respiratory failure s/p tracheostomy, coronary artery disease, CVA and dementia, who presents to the emergency department via EMS from [facility] with fever. jail staff report that that patient had a fever of up to 100.4 earlier today. He presents to the ED for further evaluation. HPI is limited due to patients baseline clinical condition. Allergies: Latex, NKDA. Past Surgical History: Right Inguinal Hernia, Left Knee Replacement, Pins in Left Hip Social History: Former smoker (quit 40 years ago). No alcohol or drug use reported. PCP: Dr. Callaway <Madeleine Tyler - Last Filed: 08/29/16 20:52> - General History Source: Jail Records, Old Records Exam Limitations: Clinical Condition, Dementia <Allen Louis - Last Filed: 08/29/16 22:14> - General Chief Complaint: SIRS, Suspected/Possible Stated Complaint: FEVER Time Seen by Provider: 08/29/16 19:36 Past History <Madeleine Tyler - Last Filed: 08/29/16 20:52> - Past Medical History Anemia: No Asthma: No Cancer: No Cardiac Disorders: Yes (AFib) CVA: Yes (right sided weakness) COPD: Yes CHF: No Dementia: Yes Diabetes: No GI Disorders: Yes (GI bleed) Disorders: Yes (UTI, hematuria) HTN: No Hypercholesterolemia: Yes Liver Disease: No Suicide Attempt (Hx): No Seizures: No Thyroid Disease: No - Surgical History Abdominal Surgery: Yes (RIGHT INGUINAL HERNIA REPAIR) Appendectomy: No Cardiac Surgery: No Cholecystectomy: No Lung Surgery: No Neurologic Surgery: No Orthopedic Surgery: Yes (lt knee replacement, pins in left hip) - Immunization History Td Vaccination: Yes Immunization Up to Date: Yes - Psycho/Social/Smoking Cessation Hx Anxiety: No Suicidal Ideation: No Smoking Status: No Smoking History: Unknown if ever smoked Years of Tobacco Use: 0 Have you smoked in the past 12 months: No Number of Cigarettes Smoked Daily: 0 If you are a former smoker, when did you quit?: 40 years ago Cigars Per Day: 0 Information on smoking cessation initiated: No 'Breaking Loose' booklet given: 06/15/15 Hx Alcohol Use: No Drug/Substance Use Hx: No Substance Use Type: None Hx Substance Use Treatment: No <MissyAllen - Last Filed: 08/29/16 22:14> - Past Medical History Allergies/Adverse Reactions: Allergies Allergy/AdvReac Type Severity Reaction Status Date / Time latex Allergy Verified 08/29/16 19:54 No Known Drug Allergies Allergy Verified 08/29/16 19:54 Home Medications: Ambulatory Orders Ferrous Sulfate 325 mg GT HS 02/27/15 Fludrocortisone Acetate [Florinef -] 0.1 mg GT BID 02/28/15 Acetaminophen [Tylenol .Regular Strength -] 650 mg NR Q4H PRN #0 tablet Scopolamine Hydrobromide [Transderm-Scop -] 1 patch TD Q72H patch.td72 Albuterol 2.5/Ipratropium 0.5 [Duoneb -] 1 neb IH QID 03/20/16 Ascorbic Acid [Vitamin C -] 500 mg GT DAILY 03/20/16 Carbidopa/Levodopa [Carbidopa-Levodopa 25-100 Tab] 1 each GT BID 03/20/16 Metoprolol Tartrate [Lopressor -] 12.5 mg GT TID tablet 03/27/16 Multivitamins [Multivit ([facility] Formulary)] 1 tab GT DAILY 04/30/16 Ranitidine [Zantac -] 150 mg GT BID 04/30/16 Furosemide Oral Solution [Lasix Oral Solution -] 40 mg GT BID@0600,1400 udc 01/18 Naph,Mb-Db/K pH,Mbdb [PHOS-NaK PACKET -] 1 packet PEG TID pow 05/12/16 Aa/[place] Shar,[place]hey/Arg/C/Zn/Cu [Lps Critical Care Liquid] 30 ml PO DAILY Donepezil HCl [Aricept -] 10 mg PO DAILY 07/09/16 Lactobacillus Acidophilus [Bacid -] 1 tab PO BID 07/09/16 Mirtazapine [Remeron Soltab -] 15 mg PO DAILY 07/09/16 Amino Acids/Protein Hydrolys [Prostat Sugar-Free Packet -] 30 ml GT BID@0800, 1730 packet 07/14/16 Collagenase Clostridium Hist. [Santyl -] 1 applic TP DAILY tube 07/14/16 Mirtazapine [Remeron -] 15 mg GT HS tablet 07/14/16 Picc Line Flush [Picc Line Flush -] 8 ml IVPUSH PRN PRN #0 ml 07/14/16 Piperacillin/Tazob 4.5 gm [Zosyn 4.5GM Ivpb (Pre-Docked)] 4.5 gm IVPB Q8H-IV # 30 bag 07/14/16 Potassium Chloride Oral Soln [KCl Oral Solution -] 40 meq PO BID cup 07/14/16 Warfarin Na [Coumadin -] 5 mg PO DAILY@1800 tablet 07/14/16 Review of Systems - Review of Systems Able to Perform ROS?: No Comments:: 08/29/16 20:32 Unable to perform ROS due to patients baseline clinical condition. <Madeleine Tyler - Last Filed: 08/29/16 20:52> *Physical Exam - Vital Signs Last Vital Signs Temp Pulse Resp BP Pulse Ox 100.4 F H 77 14 82/47 99 08/29/16 19:35 08/29/16 19:35 08/29/16 19:40 08/29/16 19:35 08/29/16 19:35 - Physical Exam Comments: 08/29/16 20:38 GENERAL: Nonverbal at baseline, in no acute distress. HEAD: No signs of trauma. EYES: PERRLA, EOMI, sclera anicteric, conjunctiva clear. ENT: Trach site is clean, dry and intact. Auricles normal inspection, hearing grossly normal, nares patent, oropharynx clear without exudates. Moist mucosa. NECK: Normal ROM, supple, no lymphadenopathy, JVD, or masses. LUNGS: Breath sounds equal, clear to auscultation bilaterally. No wheezes, and no crackles. HEART: Regular rate and rhythm, normal S1 and S2, no murmurs, rubs or gallops. ABDOMEN: PEG site is clean, dry and intact. Soft, normoactive bowel sounds. No guarding, no rebound. No masses. EXTREMITIES: Right arm, PICC line placed with no surrounding erythema but is [facility] out. 3+ pitting edema of the bilateral lower extremities. Normal range of motion. No clubbing or cyanosis. No cords, erythema, or tenderness. NEUROLOGICAL: Cranial nerves II through XII intact. Patient is nonverbal at baseline, gait is deferred. SKIN: Stage II sacral ulcer. <Madeleine Tyler - Last Filed: 08/29/16 20:52> - Vital Signs Last Vital Signs Temp Pulse Resp BP Pulse Ox 100.4 F H 77 14 82/47 99 08/29/16 19:35 08/29/16 19:35 08/29/16 19:40 08/29/16 19:35 08/29/16 19:35 <Allen Louis - Last Filed: 08/29/16 22:14> Heart Score/ECG Review #1 ECG reviewed & interpreted by me at: 18:00 08/29/16 21:45 NSR 70 with 1st degree AV block, QTC 460 msec, T wave flat III, no std/tracy, normal axis <Allen Louis - Last Filed: 08/29/16 22:14> ED Treatment Course - LABORATORY CBC & Chemistry Diagram: 08/29/16 20:10 08/29/16 20:10 <Madeleine Tyler - Last Filed: 08/29/16 20:52> - LABORATORY CBC & Chemistry Diagram: 08/29/16 20:10 08/29/16 20:10 - RADIOLOGY Radiology Studies Ordered: Category Date Time Status CHEST X-RAY PORTABLE* [RAD] Stat Radiology 08/29/16 19:55 Ordered <Allen Louis - Last Filed: 08/29/16 22:14> Medical Decision Making - Medical Decision Making 08/29/16 20:41 EXAM: RAD/CHEST X-RAY PORTABLE Reviewed By: Dr. Maria D Ch IMPRESSION: Since 07/09/2016, there is interval airspace disease/consolidation in the right lower lobe with a small right pleural effusion. Interval better aeration of the left lung base with persistent mild atelectatic changes and likely an artifact obscuring visualization of the left lung base. Tracheostomy tube is in satisfactory position. Chin artifact is obscuring the right lung apex. <Madeleine Tyler - Last Filed: 08/29/16 20:52> - Critical Care Time Total Critical Care Time (minutes): 45 Critical Care Statement: The care of this patient involved high complexity decision making to prevent further life threatening deterioration of the patient 's condition and/or to evalute & treat vital organ system(s) failure or risk of failure. - Medical Decision Making 08/29/16 20:16 A portion of this note was documented by scribe services under my direction. I have reviewed the details of the note, within reason, and agree with the documentation with the following case summary and management plan written by me. Patient treated in the ED. Patient arrives by ambulance to the emergency department. Nursing notes are reviewed and incorporated into the medical decision-making. Vital signs reviewed. Peripheral IV access obtained by the nurse, laboratory studies are drawn and sent, reviewed and interpreted by myself. Vital Signs Temp Pulse Resp BP Pulse Ox 100.4 F H 77 14 82/47 99 08/29/16 19:35 08/29/16 19:35 08/29/16 19:40 08/29/16 19:35 08/29/16 19:35 81 year old male with past medical history of COPD with chronic respiratory failure status post tracheostomy, hyperlipidemia, coronary disease, stroke, atrial fibrillation, dementia presents to the ED for 1 day of fever up 100.4. Patient unable to specify any complaints secondary to his medical condition. Patient is however on vancomycin for his cellulitis and possible cellulitis he had on his previous visit. Patient's blood pressure is 80 systolic concerning for sepsis. We'll initiate IV antibiotics and start Zosyn in addition to the vancomycin. We'll need to watch pressures and vital signs strictly. Admit the patient to the hospital for further violation. We'll need to find and investigate the source of infection. 08/29/16 22:08 CBC, BMP 08/29/16 20:10 08/29/16 20:10 CMP Sodium 140 mmol/L (136-145) 08/29/16 20:10 Potassium 3.7 mmol/L (3.5-5.1) 08/29/16 20:10 Chloride 102 mmol/L (98-107) 08/29/16 20:10 Carbon Dioxide 31 mmol/L (21-32) 08/29/16 20:10 Anion Gap 7 (8-16) L 08/29/16 20:10 BUN 23 mg/dL (7-18) H D 08/29/16 20:10 Creatinine 0.8 mg/dL (0.7-1.3) D 08/29/16 20:10 Creat Clearance w eGFR > 60 (>60) 08/29/16 20:10 Random Glucose 88 mg/dL (74-106) 08/29/16 20:10 Lactic Acid 1.633 mmol/L (0.4-2.0) 08/29/16 20:10 Calcium 8.1 mg/dL (8.5-10.1) L 08/29/16 20:10 Total Bilirubin 0.7 mg/dL (0.2-1.0) D 08/29/16 20:10 AST 36 U/L (15-37) D 08/29/16 20:10 ALT 9 U/L (12-78) L D 08/29/16 20:10 Alkaline Phosphatase 105 U/L (45-117) D 08/29/16 20:10 Creatine Kinase 101 IU/L (39-308) 08/29/16 20:10 Troponin I 0.02 ng/ml (0.00-0.05) 08/29/16 20:10 Total Protein 7.0 g/dl (6.4-8.2) 08/29/16 20:10 Albumin 2.4 g/dl (3.4-5.0) L 08/29/16 20:10 Patient has a right-sided pneumonia. Azithromycin was added. Family at the bedside who also informed the patient was recently diagnosed with C. difficile and has been on vancomycin. I'll initiate IV Flagyl. Patient has had diarrhea prior to [facility]. Differential includes sepsis secondary to pneumonia and possibly C. difficile. We'll admit the patient to the ICU given soft blood pressures. Case discussed with Dr. Jenknis who agrees with plan and admits the patient to his service. 08/29/16 22:13 Case discussed with ICU CENTRIFUGAL SEPARATOR Efren who accepts the patient. <Allen Louis - Last Filed: 08/29/16 22:14> *DC/Admit/Observation/Transfer - Attestations Scribe Attestion: 08/29/16 20:31 Documentation prepared by Madeleine Tyler, acting as remote medical coder for Allen Louis MD. <Madeleine Tyler - Last Filed: 02/24/17 20:52> - Discharge Dispostion Admit: Yes <Pema Louisel - Last Filed: 08/29/16 22:14> Diagnosis at time of Disposition: Pneumonia Qualifiers: Pneumonia type: due to unspecified organism Laterality: right Lung location: unspecified part of lung Qualified Code(s): J18.9 - Pneumonia, unspecified organism Sepsis Qualifiers: Sepsis type: sepsis due to unspecified organism Qualified Code(s): A41.9 - Sepsis, unspecified organism - Discharge Dispostion Condition at time of disposition: Guarded - Referrals Referrals: Jerzy Callaway MD [Primary Care Provider] -
[2016-08-29] MEDS ORDERED: PIPERACILLIN/TAZOB 3.375 GM 50 ML IVPB ONE (20:35)
[2016-08-29 20:38] LABS: MCHC 32.8 g/dl (32.0-35.9); MEAN CELL VOLUME 91.7 fl (80-96); MEAN PLT VOLUME 8.5 fl (7.5-11.1); PLATELET COUNT 268 K/MM3 (134-434); RDW 14.3 % (11.9-15.9); WHITE BLOOD COUNT 24.6 K/mm3 (4.0-10.0)
[2016-08-29 20:56] LABS: INR 2.84 (0.82-1.09); PROTHROMBIN TIME (PATIENT) 31.9 SEC (9.98-11.88)
[2016-08-29] MEDS ORDERED: AZITHROMYCIN IVPB 500 MG in DEXTROSE 5%-WATER - 250 ML IVPB ONE (20:56)
[2016-08-29 20:59] LABS: ACTIVATED PTT 40.4 SECONDS (26.9-34.4); PLATELET ESTIMATE ADEQUATE (NORMAL)
[2016-08-29] MEDS ORDERED: METRONIDAZOLE 500 MG PREMIXED 100 ML IVPB ONE ×2 (21:05→22:08)
[2016-08-29 21:13] LABS: ALBUMIN 2.4 g/dl (3.4-5.0); ANION GAP 7 (8-16); BILIRUBIN,TOTAL 0.7 mg/dL (0.2-1.0); CALCIUM 8.1 mg/dL (8.5-10.1); CO2 31 mmol/L (21-32); CREATININE 0.8 mg/dL (0.7-1.3); GLUCOSE,RANDOM 88 mg/dL (74-106); SGOT/AST 36 U/L (15-37); SGPT/ALT 9 U/L (12-78)
[2016-08-29 21:16] LABS: ALK PHOS 105 U/L (45-117); TROPONIN I 0.02 ng/ml (0.00-0.05)
[2016-08-29] MEDS ORDERED: AZITHROMYCIN IVPB 250 ML IVPB ONE (22:07)
--- NOTE | 2016-08-29 23:30 | CONSULT ---
Consult Consult Specialty:: Pulm/CCM Reason for Consultation:: VAP, fever - History of Present Illness Chief Complaint: fever History of Present Illness: This is a 81 yo man, half-way resident with multiple medical problems including but not limited to: dementia, parkinson's, afib, CVA bed bound c/b pressure ulcers colonized with polymicrobial MDR infections, chronic respiratory failure s/p trach/PEG h/o MDR acinetobacter VAP. He was recently admitted to [facility] and treated for osteomyelitis with planned 6 wks of ABX via PICC (placed ). He developed C. diff while at the half-way and was treated with vanco po. He was transferred to ED for fever (100.4) and relative hypotension (80/50s). CXR: consolidation in the right lower lobe with a small right pleural effusion. ABX were started: azithro, zosyn and vanco. On arrival to ICU patient hemodynamically stable. - History Source History Provided By: Medical Record Limitations to Obtaining History: Unresponsive - Past Medical History [employer]ON[employer]PLIANCES: Yes: CVA, Dementia, Parkinson's Cardio/Vascular: Yes: AFIB, CAD, Hyperlipdemia Pulmonary: Yes: COPD Gastrointestinal: Yes: GI Bleed Renal/: Yes: BPH Infectious Disease: Yes: Other (, aspiration pneumonia in the past) Musculoskeletal: Yes: Hemiplegia - Past Surgical History Past Surgical History: Yes: Hernia Repair (right inguinal hernia repair), Joint Replacement (pins in left hip) - Alcohol/Substance Use Hx Alcohol Use: No - Smoking History Smoking history: Unknown if ever smoked Have you smoked in the past 12 months: No Aproximately how many cigarettes per day: 0 If you are a former smoker, when did you quit?: 40 years ago - Social History Usual Living Arrangement: [facility] ADL: Support Services (has home health aid) 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 History of Recent Travel: No Home Medications - Allergies Allergies/Adverse Reactions: Allergies Allergy/AdvReac Type Severity Reaction Status Date / Time latex Allergy Verified 08/29/16 19:54 No Known Drug Allergies Allergy Verified 08/29/16 19:54 - Home Medications Home Medications: Ambulatory Orders Ferrous Sulfate 325 mg GT HS 02/27/15 Fludrocortisone Acetate [Florinef -] 0.1 mg GT BID 02/28/15 Acetaminophen [Tylenol .Regular Strength -] 650 mg NR Q4H PRN #0 tablet Scopolamine Hydrobromide [Transderm-Scop -] 1 patch TD Q72H patch.td72 Albuterol 2.5/Ipratropium 0.5 [Duoneb -] 1 neb IH QID 03/20/16 Ascorbic Acid [Vitamin C -] 500 mg GT DAILY 03/20/16 Carbidopa/Levodopa [Carbidopa-Levodopa 25-100 Tab] 1 each GT BID 03/20/16 Metoprolol Tartrate [Lopressor -] 12.5 mg GT TID tablet 03/27/16 Multivitamins [Multivit ([facility] Formulary)] 1 tab GT DAILY 04/30/16 Ranitidine [Zantac -] 150 mg GT BID 04/30/16 Furosemide Oral Solution [Lasix Oral Solution -] 40 mg GT BID@0600,1400 udc 01/18 Naph,Mb-Db/K pH,Mbdb [PHOS-NaK PACKET -] 1 packet PEG TID pow 05/12/16 Aa/[place] Shar,Whey/Arg/C/Zn/Cu [Lps Critical Care Liquid] 30 ml PO DAILY Donepezil HCl [Aricept -] 10 mg PO DAILY 07/09/16 Lactobacillus Acidophilus [Bacid -] 1 tab PO BID 07/09/16 Mirtazapine [Remeron Soltab -] 15 mg PO DAILY 07/09/16 Amino Acids/Protein Hydrolys [Prostat Sugar-Free Packet -] 30 ml GT BID@0800, 1730 packet 07/14/16 Collagenase Clostridium Hist. [Santyl -] 1 applic TP DAILY tube 07/14/16 Mirtazapine [Remeron -] 15 mg GT HS tablet 07/14/16 Picc Line Flush [Picc Line Flush -] 8 ml IVPUSH PRN PRN #0 ml 07/14/16 Piperacillin/Tazob 4.5 gm [Zosyn 4.5GM Ivpb (Pre-Docked)] 4.5 gm IVPB Q8H-IV # 30 bag 07/14/16 Potassium Chloride Oral Soln [KCl Oral Solution -] 40 meq PO BID cup 07/14/16 Warfarin Na [Coumadin -] 5 mg PO DAILY@1800 tablet 07/14/16 Family Disease History - Family Disease History Family History: Unable to Obtain Review of Systems Unable to obtain ROS, reason: trach, non responsive Physical Exam Vital Signs: Vital Signs Temperature 100.4 F H 08/29/16 19:35 Pulse Rate 77 08/29/16 19:35 Respiratory Rate 13 08/29/16 21:52 Blood Pressure 82/47 08/29/16 19:35 O2 Sat by Pulse Oximetry (%) 99 08/29/16 19:35 Current Medications Acetaminophen (Tylenol -) 650 mg PO Q6H PRN PRN Reason: FEVER OR PAIN Carbidopa/Levodopa (Sinemet 25/100 -) 1 each PO BID EMMANUEL Chlorhexidine Gluconate (Hibiclens For Decolonization -) 1 applic TP HS EMMANUEL Collagenase (Santyl -) 1 applic TP DAILY EMMANUEL Furosemide (Lasix -) 40 mg PO BID@0600,1400 EMMANUEL Vancomycin HCl 1,000 mg/ (Dextrose) 250 mls @ 250 mls/hr IVPB DAILY EMMANUEL PRN Reason: Protocol Mupirocin (Bactroban Ointment (For Decolonization) -) 1 applic NS BID EMMANUEL Stop: 09/04/16 09:59 Piperacillin Sod/Tazobactam Sod (Zosyn 4.5gm Ivpb (Pre-Docked)) 4.5 gm IVPB Q8H -IV EMMANUEL Potassium Chloride (Kcl Oral Solution -) 40 meq PO DAILY EMMANUEL Ranitidine HCl (Zantac Oral Solution -) 150 mg PO DAILY EMMANUEL Scopolamine HBr (Transderm-Scop -) 1 patch TD Q72H EMMANUEL Sodium Chloride (Normal Saline -) 1,000 ml IV Q20M PRN PRN Reason: MAP<65mm Hg OR SBP <90 Last Admin: 08/29/16 23:34 Dose: 1,000 ml Vancomycin HCl (Vancomycin Oral Solution) 125 mg PO Q6HPO EMMANUEL Constitutional: Yes: Cachectic Cardiovascular: Yes: Pulse Irregular, S1, S2 Respiratory: Yes: Mechanically Ventilated, Rales Gastrointestinal: Yes: Normal Bowel Sounds, Soft Extremities: Yes: Other ([id number] lesion at the lateral surface of left foot) Edema: LLE: 3+, RLE: 3+ Integumentary: Yes: Pressure Ulcer (Decubiti ulcer: Left Buttock 4cm x 6 cm with opening; Right buttock 3cm x 4 cm with opening, Left lateral foot-4x3cm.), Venous Stasis Changes Neurological: Yes: Unresponsive Labs: CBCD WBC 24.6 K/mm3 (4.0-10.0) H D 08/29/16 20:10 RBC 3.78 M/mm3 (4.00-5.60) L 08/29/16 20:10 Hgb 11.4 GM/dL (11.7-16.9) L 08/29/16 20:10 Hct 34.7 % (35.4-49) L 08/29/16 20:10 MCV 91.7 fl (80-96) 08/29/16 20:10 MCHC 32.8 g/dl (32.0-35.9) 08/29/16 20:10 RDW 14.3 % (11.9-15.9) 08/29/16 20:10 Plt Count 268 K/MM3 (134-434) 08/29/16 20:10 MPV 8.5 fl (7.5-11.1) 08/29/16 20:10 CMP Sodium 140 mmol/L (136-145) 08/29/16 20:10 Potassium 3.7 mmol/L (3.5-5.1) 08/29/16 20:10 Chloride 102 mmol/L (98-107) 08/29/16 20:10 Carbon Dioxide 31 mmol/L (21-32) 08/29/16 20:10 Anion Gap 7 (8-16) L 08/29/16 20:10 BUN 23 mg/dL (7-18) H D 08/29/16 20:10 Creatinine 0.8 mg/dL (0.7-1.3) D 08/29/16 20:10 Creat Clearance w eGFR > 60 (>60) 08/29/16 20:10 Random Glucose 88 mg/dL (74-106) 08/29/16 20:10 Calcium 8.1 mg/dL (8.5-10.1) L 08/29/16 20:10 Total Bilirubin 0.7 mg/dL (0.2-1.0) D 08/29/16 20:10 AST 36 U/L (15-37) D 08/29/16 20:10 ALT 9 U/L (12-78) L D 08/29/16 20:10 Alkaline Phosphatase 105 U/L (45-117) D 08/29/16 20:10 Total Protein 7.0 g/dl (6.4-8.2) 08/29/16 20:10 Albumin 2.4 g/dl (3.4-5.0) L 08/29/16 20:10 CARDIAC ENZYMES Creatine Kinase 101 IU/L (39-308) 08/29/16 20:10 Troponin I 0.02 ng/ml (0.00-0.05) 08/29/16 20:10 Imaging - Results Chest X-ray: Report Reviewed, Image Reviewed Problem List - Problems (1) Pneumonia Code(s): J18.9 - PNEUMONIA, UNSPECIFIED ORGANISM Qualifiers: Pneumonia type: due to unspecified organism Laterality: right Lung location: unspecified part of lung Qualified Code(s): J18.9 - Pneumonia, unspecified organism (2) Sepsis Code(s): A41.9 - SEPSIS, UNSPECIFIED ORGANISM Qualifiers: Sepsis type: sepsis due to unspecified organism Qualified Code(s): A41.9 - Sepsis, unspecified organism (3) A-fib Code(s): I48.91 - UNSPECIFIED ATRIAL FIBRILLATION Qualifiers: Atrial fibrillation type: chronic Qualified Code(s): I48.2 - Chronic atrial fibrillation (4) Acute on chronic diastolic CHF (congestive heart failure) Code(s): I50.33 - ACUTE ON CHRONIC DIASTOLIC (CONGESTIVE) HEART FAILURE (5) Acute respiratory failure with hypoxia Code(s): J96.01 - ACUTE RESPIRATORY FAILURE WITH HYPOXIA (6) CHF (congestive heart failure) Code(s): I50.9 - HEART FAILURE, UNSPECIFIED (7) Dementia Code(s): F03.90 - UNSPECIFIED DEMENTIA WITHOUT BEHAVIORAL DISTURBANCE Qualifiers: Dementia type: Parkinson's disease Dementia behavioral disturbance: with behavioral disturbance Qualified Code(s): G20 - Parkinson's disease; F02.81 - Dementia in other diseases classified elsewhere with behavioral disturbance (8) Foot ulcer Code(s): L97.509 - NON-PRESSURE CHRONIC ULCER OTH PRT UNSP FOOT W UNSP SEVERITY (9) Parkinson disease Code(s): G20 - PARKINSON'S DISEASE (10) Pressure ulcer Code(s): L89.90 - PRESSURE ULCER OF UNSPECIFIED SITE, UNSPECIFIED STAGE Qualifiers: Pressure ulcer stage: stage II Qualified Code(s): L89.92 - Pressure ulcer of unspecified site, stage 2 (11) Ventilator dependent Code(s): Z99.11 - DEPENDENCE ON RESPIRATOR [VENTILATOR] STATUS Assessment/Plan a/p: 81 yo man MMP: dementia, parkinson's, afib, CVA bed bound c/b pressure ulcers colonized with polymicrobial MDR infections, chronic respiratory failure s/p trach/PEG h/o MDR acinetobacter VAP admitted for fever found to have RLL infiltration, other sources of infection: PICC line (placed 07/14/2016), UTI, recurrent osteomyelitis given 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 diff -cont parkinson's meds -PPI -cont anticoagulation for afib Boerem ACNP Pulm/CCM CCT: 45m
[2016-08-30 02:01] VITALS: BMI 33.6
[2016-08-30] MEDS ORDERED: ACETAMINOPHEN 325 MG TABLET (FP) PO PRN (04:21)
[2016-08-30] MEDS ORDERED: SCOPOLAMINE HYDROBROMIDE 1 PATCH PATCH.TD72 TD SCH (04:45)
[2016-08-30] MEDS: VANCOMYCIN 250 MG/5 ML ORAL SOLUTION PO SCH ×4 (06:00→23:39)
[2016-08-30] MEDS: FUROSEMIDE 40 MG TABLET (FP) PO SCH ×2 (06:00→16:58)
--- NOTE | 2016-08-30 07:08 | PN ---
Progress Note (short form) - Note Progress Note: Seen and examined in the ICU BP stable overnight WBC improved this AM Current Medications Acetaminophen (Tylenol -) 650 mg PO Q6H PRN PRN Reason: FEVER OR PAIN Carbidopa/Levodopa (Sinemet 25/100 -) 1 each PO BID [facility] Chlorhexidine Gluconate (Hibiclens For Decolonization -) 1 applic TP HS [facility] Collagenase (Santyl -) 1 applic TP DAILY [facility] Furosemide (Lasix -) 40 mg PO BID@0600,1400 [facility] Vancomycin HCl 1,000 mg/ (Dextrose) 250 mls @ 250 mls/hr IVPB DAILY [facility] PRN Reason: Protocol Mupirocin (Bactroban Ointment (For Decolonization) -) 1 applic NS BID [facility] Stop: 09/04/16 09:59 Piperacillin Sod/Tazobactam Sod (Zosyn 4.5gm Ivpb (Pre-Docked)) 4.5 gm IVPB Q8H -IV [facility] Potassium Chloride (Kcl Oral Solution -) 40 meq PO DAILY [facility] Ranitidine HCl (Zantac Oral Solution -) 150 mg PO DAILY [facility] Scopolamine HBr (Transderm-Scop -) 1 patch TD Q72H [facility] Sodium Chloride (Normal Saline -) 1,000 ml IV Q20M PRN PRN Reason: MAP<65mm Hg OR SBP <90 Last Admin: 08/29/16 23:34 Dose: 1,000 ml Vancomycin HCl (Vancomycin Oral Solution) 125 mg PO Q6HPO [facility] Vital Signs Period Temp Pulse Resp BP Sys/Limon Pulse Ox Last 24 Hr 97.2 F-100.4 F 60-77 12-16 82-117/47-77 94-100 Intake & Output 08/27/16 08/28/16 08/29/16 08/30/16 23:59 23:59 23:59 23:59 Output Total 500 Balance -500 Weight 115.485 kg 112.446 kg Exam: trach, non responsive Pulm: diminished in bases with rhonchi CV: irr, irr no m/r/g Abd: SNTND Ext: +3 edema Derm: large sacral decub, left foot decub CBCD WBC 16.5 K/mm3 (4.0-10.0) H D 08/30/16 08:00 RBC 3.88 M/mm3 (4.00-5.60) L 02/25/17 08:00 Hgb 11.8 GM/dL (11.7-16.9) 08/30/16 08:00 Hct 36.0 % (35.4-49) 08/30/16 08:00 MCV 92.8 fl (80-96) 08/30/16 08:00 MCHC 32.8 g/dl (32.0-35.9) 08/30/16 08:00 RDW 14.6 % (11.9-15.9) 08/30/16 08:00 Plt Count 180 K/MM3 (134-434) D 08/30/16 08:00 MPV 9.5 fl (7.5-11.1) D 08/30/16 08:00 CMP Sodium 143 mmol/L (136-145) 08/30/16 08:45 Potassium 3.5 mmol/L (3.5-5.1) 08/30/16 08:45 Chloride 103 mmol/L (98-107) 08/30/16 08:45 Carbon Dioxide 35 mmol/L (21-32) H 08/30/16 08:45 Anion Gap 5 (8-16) L 08/30/16 08:45 BUN 20 mg/dL (7-18) H 08/30/16 08:45 Creatinine 0.7 mg/dL (0.7-1.3) 08/30/16 08:45 Creat Clearance w eGFR > 60 (>60) 08/29/16 20:10 Random Glucose 92 mg/dL (74-106) 08/30/16 08:45 Calcium 8.1 mg/dL (8.5-10.1) L 08/30/16 08:45 Total Bilirubin 0.7 mg/dL (0.2-1.0) D 08/29/16 20:10 AST 36 U/L (15-37) D 08/29/16 20:10 ALT 9 U/L (12-78) L D 08/29/16 20:10 Alkaline Phosphatase 105 U/L (45-117) D 08/29/16 20:10 Total Protein 7.0 g/dl (6.4-8.2) 08/29/16 20:10 Albumin 2.4 g/dl (3.4-5.0) L 08/29/16 20:10 CARDIAC ENZYMES Creatine Kinase 101 IU/L (39-308) 08/29/16 20:10 Troponin I 0.02 ng/ml (0.00-0.05) 08/29/16 20:10 Micro: pending Problem List - Problems (1) Pneumonia Code(s): J18.9 - PNEUMONIA, UNSPECIFIED ORGANISM Qualifiers: Pneumonia type: due to unspecified organism Laterality: right Lung location: unspecified part of lung Qualified Code(s): J18.9 - Pneumonia, unspecified organism (2) Sepsis Code(s): A41.9 - SEPSIS, UNSPECIFIED ORGANISM Qualifiers: Sepsis type: sepsis due to unspecified organism Qualified Code(s): A41.9 - Sepsis, unspecified organism (3) A-fib Code(s): I48.91 - UNSPECIFIED ATRIAL FIBRILLATION Qualifiers: Atrial fibrillation type: chronic Qualified Code(s): I48.2 - Chronic atrial fibrillation (4) Acute on chronic diastolic CHF (congestive heart failure) Code(s): I50.33 - ACUTE ON CHRONIC DIASTOLIC (CONGESTIVE) HEART FAILURE (5) Acute respiratory failure with hypoxia Code(s): J96.01 - ACUTE RESPIRATORY FAILURE WITH HYPOXIA (6) CHF (congestive heart failure) Code(s): I50.9 - HEART FAILURE, UNSPECIFIED (7) Dementia Code(s): F03.90 - UNSPECIFIED DEMENTIA WITHOUT BEHAVIORAL DISTURBANCE Qualifiers: Dementia type: Parkinson's disease Dementia behavioral disturbance: with behavioral disturbance Qualified Code(s): G20 - Parkinson's disease; F02.81 - Dementia in other diseases classified elsewhere with behavioral disturbance (8) Foot ulcer Code(s): L97.509 - NON-PRESSURE CHRONIC ULCER OTH PRT UNSP FOOT W UNSP SEVERITY (9) Parkinson disease Code(s): G20 - PARKINSON'S DISEASE (10) Pressure ulcer Code(s): L89.90 - PRESSURE ULCER OF UNSPECIFIED SITE, UNSPECIFIED STAGE Qualifiers: Pressure ulcer stage: stage II Qualified Code(s): L89.92 - Pressure ulcer of unspecified site, stage 2 (11) Ventilator dependent Code(s): Z99.11 - DEPENDENCE ON RESPIRATOR [VENTILATOR] STATUS Assessment/Plan a/p: 81 yo man MMP: dementia, parkinson's, afib, CVA bed bound c/b pressure ulcers colonized with polymicrobial MDR infections, chronic respiratory failure s/p trach/PEG h/o MDR acinetobacter VAP admitted for fever found to have RLL infiltration, other sources of infection: PICC line (placed 07/14/2016), recurrent osteomyelitis given positive probe to bone on exam -IV access -cont mechanical ventilation -VAP bundle: oral care and HOB >30 -cont scopolamine -surgery for evaluation of decubitus as source of infection -collagenase to decubes -IV fluids -hold antihypertensives -cont tube feeds -ID consult -abrams culture: blood/sputum/urine -ABX for VAP: zosyn/vanco based on previous admission -cont vanco po for c. diff -cont parkinson's meds -PPI -cont anticoagulation for afib Stable for floor transfer Una ACNP Pulm/CCM CCT: 45m Problem List - Problems (1) Pneumonia Code(s): J18.9 - PNEUMONIA, UNSPECIFIED ORGANISM Qualifiers: Pneumonia type: due to unspecified organism Laterality: right Lung location: unspecified part of lung Qualified Code(s): J18.9 - Pneumonia, unspecified organism (2) Sepsis Code(s): A41.9 - SEPSIS, UNSPECIFIED ORGANISM Qualifiers: Sepsis type: sepsis due to unspecified organism Qualified Code(s): A41.9 - Sepsis, unspecified organism (3) A-fib Code(s): I48.91 - UNSPECIFIED ATRIAL FIBRILLATION Qualifiers: Atrial fibrillation type: chronic Qualified Code(s): I48.2 - Chronic atrial fibrillation (4) Acute on chronic diastolic CHF (congestive heart failure) Code(s): I50.33 - ACUTE ON CHRONIC DIASTOLIC (CONGESTIVE) HEART FAILURE (5) Acute respiratory failure with hypoxia Code(s): J96.01 - ACUTE RESPIRATORY FAILURE WITH HYPOXIA (6) CHF (congestive heart failure) Code(s): I50.9 - HEART FAILURE, UNSPECIFIED (7) Dementia Code(s): F03.90 - UNSPECIFIED DEMENTIA WITHOUT BEHAVIORAL DISTURBANCE Qualifiers: Dementia type: Parkinson's disease Dementia behavioral disturbance: with behavioral disturbance Qualified Code(s): G20 - Parkinson's disease; F02.81 - Dementia in other diseases classified elsewhere with behavioral disturbance (8) Foot ulcer Code(s): L97.509 - NON-PRESSURE CHRONIC ULCER OTH PRT UNSP FOOT W UNSP SEVERITY (9) Parkinson disease Code(s): G20 - PARKINSON'S DISEASE (10) Pressure ulcer Code(s): L89.90 - PRESSURE ULCER OF UNSPECIFIED SITE, UNSPECIFIED STAGE Qualifiers: Pressure ulcer stage: stage II Qualified Code(s): L89.92 - Pressure ulcer of unspecified site, stage 2 (11) Ventilator dependent Code(s): Z99.11 - DEPENDENCE ON RESPIRATOR [VENTILATOR] STATUS
[2016-08-30 08:31] LABS: MCH 30.5 pg (25.7-33.7); MCHC 32.8 g/dl (32.0-35.9); MEAN CELL VOLUME 92.8 fl (80-96); MEAN PLT VOLUME 9.5 fl (7.5-11.1); PLATELET COUNT 180 K/MM3 (134-434); RDW 14.6 % (11.9-15.9); WHITE BLOOD COUNT 16.5 K/mm3 (4.0-10.0)
[2016-08-30 08:44] LABS: INR 2.34 (0.82-1.09); PROTHROMBIN TIME (PATIENT) 26.2 SEC (9.98-11.88)
[2016-08-30 08:46] LABS: ACTIVATED PTT 42.6 SECONDS (26.9-34.4)
[2016-08-30 09:04] LABS: URINE APPEARANCE CLOUDY; URINE BILIRUBIN NEGATIVE (NEGATIVE); URINE BLOOD NEGATIVE (NEGATIVE); URINE COLOR YELLOW; URINE GLUCOSE (UA) NEGATIVE (NEGATIVE); URINE KETONE NEGATIVE (NEGATIVE); URINE NITRITE NEGATIVE (NEGATIVE); URINE PROTEIN NEGATIVE (NEGATIVE); URINE UROBILINOGEN NEGATIVE E.U./dl (0.2-1.0)
[2016-08-30 09:08] LABS: URINE LEUK ESTERASE 3+ (NEGATIVE)
[2016-08-30 09:11] LABS: URINE BACTERIA MODERATE /hpf (NONE SEEN); URINE HYALINE CAST 2 /lpf; URINE MUCUS RARE; URINE RBC 4 /hpf (0-3); URINE WBC 119 /hpf (3-5); YEAST FEW
[2016-08-30] MEDS ORDERED: PIPERACILLIN/TAZOB 4.5 GM/100 ML PRE-DOCKED IVPB ONE ×2 (09:15→10:00)
[2016-08-30] MEDS ORDERED: VANCOMYCIN 1 GRAM (PRE-DOCKED) 1,000 MG/250 ML BAG IVPB ONE ×2 (09:15→10:00)
[2016-08-30 09:28] LABS: CALCIUM 8.1 mg/dL (8.5-10.1); CREATININE 0.7 mg/dL (0.7-1.3); MAGNESIUM 2.2 mg/dL (1.8-2.4); PHOSPHOROUS 2.7 mg/dL (2.5-4.9)
[2016-08-30] MEDS ORDERED: VANCOMYCIN 1,000 MG in DEXTROSE 5%-WATER - 250 ML IVPB SCH (10:00)
[2016-08-30] MEDS ORDERED: PIPERACILLIN/TAZOB 4.5 GM/100 ML PRE-DOCKED IVPB SCH (10:00)
[2016-08-30] MEDS: MUPIROCIN 2% TOPICAL OINTMENT FOR DECOLONIZATION NS SCH ×2 (10:01→21:20)
[2016-08-30] MEDS: POTASSIUM CHLORIDE 40 MEQ/30 ML UNIT DOSE CUP PO SCH (10:02)
[2016-08-30] MEDS: COLLAGENASE CLOSTRIDIUM HIST. 30 GRAMS TUBE TP SCH (10:02)
[2016-08-30] MEDS: CARBIDOPA/LEVODOPA 25/100 TABLET (FP) PO SCH ×2 (10:03→21:20)
[2016-08-30] MEDS: RANITIDINE HCL 150 MG/10 ML UNIT-DOSE CUP PO SCH (10:03)
--- NOTE | 2016-08-30 12:04 | HP ---
Admitting History and Physical - Admission History of Present Illness: This is a 81 yo man, skilled nursing resident with multiple medical problems including but not limited to: dementia, parkinson's, afib, CVA bed bound c/b pressure ulcers colonized with polymicrobial MDR infections, chronic respiratory failure s/p trach/PEG h/o MDR acinetobacter VAP. He was recently admitted to [facility] and treated for osteomyelitis with planned 6 wks of ABX via PICC (placed ). He developed C. diff while at the skilled nursing and was treated with vanco po. He was transferred to ED for fever (100.4) and relative hypotension (80/50s). CXR: consolidation in the right lower lobe with a small right pleural effusion. ABX were started: azithro, zosyn and vanco. - Past Medical History [employer]: Yes: CVA, Dementia, Parkinson's Cardiovascular: Yes: AFIB, CAD, Hyperlipdemia Pulmonary: Yes: COPD Gastrointestinal: Yes: GI Bleed Renal/: Yes: BPH Heme/Onc: Yes: Other (DVT s/p Filter) Infectious Disease: Yes: Other (, aspiration pneumonia in the past) Musculoskeletal: Yes: Hemiplegia - Past Surgical History Past Surgical History: Yes: Hernia Repair (right inguinal hernia repair), Joint Replacement (pins in left hip) - Advance Directives Advance Directives: Yes: DNR - Smoking History Smoking history: Unknown if ever smoked Have you smoked in the past 12 months: No Aproximately how many cigarettes per day: 0 If you are a former smoker, when did you quit?: 40 years ago - Alcohol/Substance Use Hx Alcohol Use: No - Social History ADL: Support Services (has home health aid) 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 History of Recent Travel: No Home Medications - Allergies Allergies/Adverse Reactions: Allergies Allergy/AdvReac Type Severity Reaction Status Date / Time latex Allergy Verified 08/29/16 19:54 No Known Drug Allergies Allergy Verified 08/29/16 19:54 - Home Medications Home Medications: Ambulatory Orders Ferrous Sulfate 325 mg GT HS 02/27/15 Fludrocortisone Acetate [Florinef -] 0.1 mg GT BID 02/28/15 Acetaminophen [Tylenol .Regular Strength -] 650 mg NR Q4H PRN #0 tablet Scopolamine Hydrobromide [Transderm-Scop -] 1 patch TD Q72H patch.td72 01/15/ 16 Albuterol 2.5/Ipratropium 0.5 [Duoneb -] 1 neb IH QID 03/20/16 Ascorbic Acid [Vitamin C -] 500 mg GT DAILY 03/20/16 Carbidopa/Levodopa [Carbidopa-Levodopa 25-100 Tab] 1 each GT BID 03/20/16 Metoprolol Tartrate [Lopressor -] 12.5 mg GT TID tablet 03/27/16 Multivitamins [Multivit ([facility] Formulary)] 1 tab GT DAILY 04/30/16 Ranitidine [Zantac -] 150 mg GT BID 04/30/16 Furosemide Oral Solution [Lasix Oral Solution -] 40 mg GT BID@0600,1400 udc 01/18 Naph,Mb-Db/K pH,Mbdb [PHOS-NaK PACKET -] 1 packet PEG TID pow 05/12/16 Aa/[place] Shar,[place]/Arg/C/Zn/Cu [Lps Critical Care Liquid] 30 ml PO DAILY Donepezil HCl [Aricept -] 10 mg PO DAILY 07/09/16 Lactobacillus Acidophilus [Bacid -] 1 tab PO BID 07/09/16 Mirtazapine [Remeron Soltab -] 15 mg PO DAILY 07/09/16 Amino Acids/Protein Hydrolys [Prostat Sugar-Free Packet -] 30 ml GT BID@0800, 1730 packet 07/14/16 Collagenase Clostridium Hist. [Santyl -] 1 applic TP DAILY tube 07/14/16 Mirtazapine [Remeron -] 15 mg GT HS tablet 07/14/16 Picc Line Flush [Picc Line Flush -] 8 ml IVPUSH PRN PRN #0 ml 07/14/16 Piperacillin/Tazob 4.5 gm [Zosyn 4.5GM Ivpb (Pre-Docked)] 4.5 gm IVPB Q8H-IV # 30 bag 07/14/16 Potassium Chloride Oral Soln [KCl Oral Solution -] 40 meq PO BID cup 07/14/16 Warfarin Na [Coumadin -] 5 mg PO DAILY@1800 tablet 07/14/16 Physical Examination Vital Signs: Vital Signs Temperature 97.6 F 08/30/16 09:57 Pulse Rate 73 08/30/16 09:57 Respiratory Rate 12 02/25/17 11:17 Blood Pressure 116/77 08/30/16 09:57 O2 Sat by Pulse Oximetry (%) 100 08/30/16 08:43 Cardiovascular: Yes: S1, S2 Respiratory: Yes: Diminished, Mechanically Ventilated, Rhonchi Gastrointestinal: Yes: Normal Bowel Sounds, Soft. No: Tenderness Edema: No Labs: CBC, BMP 08/30/16 08:00 08/30/16 08:45 Imaging - Results X-ray: Report Reviewed Problem List - Problems (1) Pneumonia Assessment/Plan: IV ABX ID CONSULT Code(s): J18.9 - PNEUMONIA, UNSPECIFIED ORGANISM Qualifiers: Pneumonia type: due to unspecified organism Laterality: right Lung location: unspecified part of lung Qualified Code(s): J18.9 - Pneumonia, unspecified organism (2) Sepsis Assessment/Plan: MONITOR LABS IV ABX Code(s): A41.9 - SEPSIS, UNSPECIFIED ORGANISM Qualifiers: Sepsis type: sepsis due to unspecified organism Qualified Code(s): A41.9 - Sepsis, unspecified organism (3) Parkinson disease Assessment/Plan: total care Code(s): G20 - PARKINSON'S DISEASE (4) Respiratory failure Assessment/Plan: VENT PER PULM Code(s): J96.90 - RESPIRATORY FAILURE, UNSP, UNSP W HYPOXIA OR HYPERCAPNIA Qualifiers: Chronicity: acute Respiratory failure complication: hypoxia and hypercapnia Qualified Code(s): J96.01 - Acute respiratory failure with hypoxia
[2016-08-30] MEDS: PIPERACILLIN/TAZOB 3.375 GM 50 ML IVPB SCH (20:37)
--- NOTE | 2016-08-30 21:06 | EKG ---
Test Reason : Blood Pressure : / mmHG Vent. Rate : 070 BPM Atrial Rate : 070 BPM P-R Int : 236 ms QRS Dur : 094 ms QT Int : 426 ms P-R-T Axes : 078 028 026 degrees QTc Int : 460 ms SINUS RHYTHM WITH 1ST DEGREE A-V BLOCK OTHERWISE NORMAL ECG WHEN COMPARED WITH ECG OF 09-JUL-2016 15:55, NO SIGNIFICANT CHANGE WAS FOUND Confirmed by GABINO BRODY MD ([id number]) on 08/30/2016 9:05:27 PM Referred By: Confirmed By:GABINO BRODY MD
[2016-08-30] MEDS: CHLORHEXIDINE GLUCONATE 4% CLEANSER FOR DECOLONIZATION TP SCH (21:20)
[2016-08-30] MEDS: VANCOMYCIN 1 GRAM (PRE-DOCKED) 250 ML IVPB SCH (21:20)
[2016-08-31] MEDS: PIPERACILLIN/TAZOB 3.375 GM 50 ML IVPB SCH ×3 (01:06→17:14)
[2016-08-31] MEDS: VANCOMYCIN 250 MG/5 ML ORAL SOLUTION PO SCH ×3 (05:53→17:14)
[2016-08-31] MEDS: FUROSEMIDE 40 MG TABLET (FP) PO SCH ×2 (05:54→14:15)
[2016-08-31 06:15] LABS: MCH 31.2 pg (25.7-33.7); MEAN CELL VOLUME 91.8 fl (80-96); MEAN PLT VOLUME 8.8 fl (7.5-11.1); PLATELET COUNT 242 K/MM3 (134-434); RDW 14.5 % (11.9-15.9); WHITE BLOOD COUNT 10.8 K/mm3 (4.0-10.0)
[2016-08-31 07:45] LABS: CALCIUM 7.9 mg/dL (8.5-10.1); CREATININE 0.6 mg/dL (0.7-1.3); MAGNESIUM 2.1 mg/dL (1.8-2.4)
--- NOTE | 2016-08-31 08:19 | PN ---
Progress Note (short form) - Note Progress Note: Seen and examined in the ICU BP stable Afebrile Current Medications Acetaminophen (Tylenol -) 650 mg PO Q6H PRN PRN Reason: FEVER OR PAIN Carbidopa/Levodopa (Sinemet 25/100 -) 1 each PO BID [facility] Last Admin: 08/30/16 21:20 Dose: 1 each Chlorhexidine Gluconate (Hibiclens For Decolonization -) 1 applic TP HS [facility] Last Admin: 08/30/16 21:20 Dose: 1 applic Collagenase (Santyl -) 1 applic TP DAILY [facility] Last Admin: 08/30/16 10:02 Dose: 1 applic Furosemide (Lasix -) 40 mg PO BID@0600,1400 [facility] Last Admin: 08/31/16 05:54 Dose: 40 mg Piperacillin Sod/Tazobactam Sod (Zosyn 3.375gm Ivpb (Pre-Docked)) 50 mls @ 100 mls/hr IVPB Q8H-IV [facility] PRN Reason: Protocol Last Admin: 08/31/16 01:06 Dose: 100 mls/hr Vancomycin HCl (Vancomycin (Pre-Docked)) 250 mls @ 166.667 mls/hr IVPB BID [facility] Last Admin: 08/30/16 21:20 Dose: 166.667 mls/hr Mupirocin (Bactroban Ointment (For Decolonization) -) 1 applic NS BID [facility] Stop: 09/04/16 09:59 Last Admin: 08/30/16 21:20 Dose: 1 applic Potassium Chloride (Kcl Oral Solution -) 40 meq PO DAILY [facility] Last Admin: 08/30/16 10:02 Dose: 40 meq Ranitidine HCl (Zantac Oral Solution -) 150 mg PO DAILY [facility] Last Admin: 08/30/16 10:03 Dose: 150 mg Scopolamine HBr (Transderm-Scop -) 1 patch TD Q72H [facility] Last Admin: 08/30/16 04:45 Dose: 1 patch Sodium Chloride (Normal Saline -) 1,000 ml IV Q20M PRN PRN Reason: MAP<65mm Hg OR SBP <90 Last Admin: 08/29/16 23:34 Dose: 1,000 ml Vancomycin HCl (Vancomycin Oral Solution) 125 mg PO Q6HPO [facility] Last Admin: 08/31/16 05:53 Dose: 125 mg Vital Signs Period Temp Pulse Resp BP Sys/Limon Pulse Ox Last 24 Hr 96.5 F-98 F 59-73 12-16 88-116/59-80 100-100 Intake & Output 08/28/16 08/29/16 08/30/16 08/31/16 23:59 23:59 23:59 23:59 Intake Total 1235 740 Output Total 2500 100 Balance -1265 640 Weight 115.485 kg 112.446 kg 113.2 kg General: remains non-responsive trached on the vent HEENT: [place], no JVD, trach c/d/i Pulm: coarse Cv: anibal Abd: SNTND, PEG Ext: edema +3 Derm: sacral decub, left foot decub Neuro: non responsive to stimulation CBCD WBC 10.8 K/mm3 (4.0-10.0) H D 08/31/16 05:20 RBC 3.60 M/mm3 (4.00-5.60) L 08/31/16 05:20 Hgb 11.2 GM/dL (11.7-16.9) L 08/31/16 05:20 Hct 33.0 % (35.4-49) L 08/31/16 05:20 MCV 91.8 fl (80-96) 08/31/16 05:20 MCHC 34.0 g/dl (32.0-35.9) 08/31/16 05:20 RDW 14.5 % (11.9-15.9) 08/31/16 05:20 Plt Count 242 K/MM3 (134-434) D 08/31/16 05:20 MPV 8.8 fl (7.5-11.1) 08/31/16 05:20 CMP Sodium 144 mmol/L (136-145) 08/31/16 05:20 Potassium 3.8 mmol/L (3.5-5.1) 08/31/16 05:20 Chloride 107 mmol/L (98-107) 08/31/16 05:20 Carbon Dioxide 32 mmol/L (21-32) 08/31/16 05:20 Anion Gap 5 (8-16) L 08/31/16 05:20 BUN 16 mg/dL (7-18) 08/31/16 05:20 Creatinine 0.6 mg/dL (0.7-1.3) L 08/31/16 05:20 Creat Clearance w eGFR > 60 (>60) 08/29/16 20:10 Random Glucose 127 mg/dL (74-106) H D 08/31/16 05:20 Calcium 7.9 mg/dL (8.5-10.1) L 08/31/16 05:20 Total Bilirubin 0.7 mg/dL (0.2-1.0) D 08/29/16 20:10 AST 36 U/L (15-37) D 08/29/16 20:10 ALT 9 U/L (12-78) L D 08/29/16 20:10 Alkaline Phosphatase 105 U/L (45-117) D 08/29/16 20:10 Total Protein 7.0 g/dl (6.4-8.2) 08/29/16 20:10 Albumin 2.4 g/dl (3.4-5.0) L 08/29/16 20:10 Microbiology 08/29/16 20:10 Blood - Peripheral Venous Blood Culture - Preliminary NO GROWTH OBTAINED AFTER 24 HOURS, INCUBATION TO CONTINUE FOR 4 DAYS. 08/29/16 20:10 Blood - Peripheral Venous Blood Culture - Preliminary NO GROWTH OBTAINED AFTER 24 HOURS, INCUBATION TO CONTINUE FOR 4 DAYS. 08/29/16 21:55 Nasopharyngeal Swab Respiratory Virus Panel - Preliminary 08/29/16 21:55 Nasopharyngeal Swab Influenza Types A,B Antigen (FAVIAN) - Final 08/29/16 21:55 Nasopharyngeal Swab - Final No CXR today Problem List - Problems (1) Pneumonia Code(s): J18.9 - PNEUMONIA, UNSPECIFIED ORGANISM Qualifiers: Pneumonia type: due to unspecified organism Laterality: right Lung location: unspecified part of lung Qualified Code(s): J18.9 - Pneumonia, unspecified organism (2) Sepsis Code(s): A41.9 - SEPSIS, UNSPECIFIED ORGANISM Qualifiers: Sepsis type: sepsis due to unspecified organism Qualified Code(s): A41.9 - Sepsis, unspecified organism (3) A-fib Code(s): I48.91 - UNSPECIFIED ATRIAL FIBRILLATION Qualifiers: Atrial fibrillation type: chronic Qualified Code(s): I48.2 - Chronic atrial fibrillation (4) Acute on chronic diastolic CHF (congestive heart failure) Code(s): I50.33 - ACUTE ON CHRONIC DIASTOLIC (CONGESTIVE) HEART FAILURE (5) Acute respiratory failure with hypoxia Code(s): J96.01 - ACUTE RESPIRATORY FAILURE WITH HYPOXIA (6) CHF (congestive heart failure) Code(s): I50.9 - HEART FAILURE, UNSPECIFIED (7) Dementia Code(s): F03.90 - UNSPECIFIED DEMENTIA WITHOUT BEHAVIORAL DISTURBANCE Qualifiers: Dementia type: Parkinson's disease Dementia behavioral disturbance: with behavioral disturbance Qualified Code(s): G20 - Parkinson's disease; F02.81 - Dementia in other diseases classified elsewhere with behavioral disturbance (8) Foot ulcer Code(s): L97.509 - NON-PRESSURE CHRONIC ULCER OTH PRT UNSP FOOT W UNSP SEVERITY (9) Parkinson disease Code(s): G20 - PARKINSON'S DISEASE (10) Pressure ulcer Code(s): L89.90 - PRESSURE ULCER OF UNSPECIFIED SITE, UNSPECIFIED STAGE Qualifiers: Pressure ulcer stage: stage II Qualified Code(s): L89.92 - Pressure ulcer of unspecified site, stage 2 (11) Ventilator dependent Code(s): Z99.11 - DEPENDENCE ON RESPIRATOR [VENTILATOR] STATUS Assessment/Plan a/p: 81 yo man MMP: dementia, parkinson's, afib, CVA bed bound c/b pressure ulcers colonized with polymicrobial MDR infections, chronic respiratory failure s/p trach/PEG h/o MDR acinetobacter VAP admitted for fever found to have RLL infiltration, other sources of infection: PICC line (placed 07/14/2016), recurrent osteomyelitis given positive probe to bone on exam -IV access -cont mechanical ventilation -VAP bundle: oral care and HOB >30 -cont scopolamine -surgery for evaluation of decubitus as source of infection -collagenase to decubes -IV fluids -hold antihypertensives -cont tube feeds -ID consult -f/u abrams culture: blood/sputum/urine -ABX for VAP: zosyn/vanco based on previous admission -cont vanco po for c. diff -cont parkinson's meds -PPI -cont anticoagulation for afib Stable for floor transfer [place] ACNP Pulm/CCM CCT: 45m Problem List - Problems (1) Pneumonia Code(s): J18.9 - PNEUMONIA, UNSPECIFIED ORGANISM Qualifiers: Pneumonia type: due to unspecified organism Laterality: right Lung location: unspecified part of lung Qualified Code(s): J18.9 - Pneumonia, unspecified organism (2) Sepsis Code(s): A41.9 - SEPSIS, UNSPECIFIED ORGANISM Qualifiers: Sepsis type: sepsis due to unspecified organism Qualified Code(s): A41.9 - Sepsis, unspecified organism (3) A-fib Code(s): I48.91 - UNSPECIFIED ATRIAL FIBRILLATION Qualifiers: Atrial fibrillation type: chronic Qualified Code(s): I48.2 - Chronic atrial fibrillation (4) Acute on chronic diastolic CHF (congestive heart failure) Code(s): I50.33 - ACUTE ON CHRONIC DIASTOLIC (CONGESTIVE) HEART FAILURE (5) Acute respiratory failure with hypoxia Code(s): J96.01 - ACUTE RESPIRATORY FAILURE WITH HYPOXIA (6) CHF (congestive heart failure) Code(s): I50.9 - HEART FAILURE, UNSPECIFIED (7) Dementia Code(s): F03.90 - UNSPECIFIED DEMENTIA WITHOUT BEHAVIORAL DISTURBANCE Qualifiers: Dementia type: Parkinson's disease Dementia behavioral disturbance: with behavioral disturbance Qualified Code(s): G20 - Parkinson's disease; F02.81 - Dementia in other diseases classified elsewhere with behavioral disturbance (8) Foot ulcer Code(s): L97.509 - NON-PRESSURE CHRONIC ULCER OTH PRT UNSP FOOT W UNSP SEVERITY (9) Parkinson disease Code(s): G20 - PARKINSON'S DISEASE (10) Pressure ulcer Code(s): L89.90 - PRESSURE ULCER OF UNSPECIFIED SITE, UNSPECIFIED STAGE Qualifiers: Pressure ulcer stage: stage II Qualified Code(s): L89.92 - Pressure ulcer of unspecified site, stage 2 (11) Ventilator dependent Code(s): Z99.11 - DEPENDENCE ON RESPIRATOR [VENTILATOR] STATUS
[2016-08-31] MEDS: POTASSIUM CHLORIDE 40 MEQ/30 ML UNIT DOSE CUP PO SCH (09:22)
[2016-08-31] MEDS: MUPIROCIN 2% TOPICAL OINTMENT FOR DECOLONIZATION NS SCH ×2 (09:22→21:38)
[2016-08-31] MEDS: CARBIDOPA/LEVODOPA 25/100 TABLET (FP) PO SCH ×2 (09:22→21:37)
[2016-08-31] MEDS: COLLAGENASE CLOSTRIDIUM HIST. 30 GRAMS TUBE TP SCH (09:22)
[2016-08-31] MEDS: VANCOMYCIN 1 GRAM (PRE-DOCKED) 250 ML IVPB SCH ×2 (09:23→21:37)
[2016-08-31] MEDS: RANITIDINE HCL 150 MG/10 ML UNIT-DOSE CUP PO SCH (09:23)
--- NOTE | 2016-08-31 11:14 | PN ---
Progress Note, Physician - Current Medication List Current Medications: Active Medications Acetaminophen (Tylenol -) 650 mg PO Q6H PRN PRN Reason: FEVER OR PAIN Carbidopa/Levodopa (Sinemet 25/100 -) 1 each PO BID [facility] Last Admin: 08/31/16 09:22 Dose: 1 each Chlorhexidine Gluconate (Hibiclens For Decolonization -) 1 applic TP HS [facility] Last Admin: 08/30/16 21:20 Dose: 1 applic Collagenase (Santyl -) 1 applic TP DAILY [facility] Last Admin: 08/31/16 09:22 Dose: 1 applic Furosemide (Lasix -) 40 mg PO BID@0600,1400 [facility] Last Admin: 08/31/16 05:54 Dose: 40 mg Piperacillin Sod/Tazobactam Sod (Zosyn 3.375gm Ivpb (Pre-Docked)) 50 mls @ 100 mls/hr IVPB Q8H-IV [facility] PRN Reason: Protocol Last Admin: 08/31/16 09:23 Dose: 100 mls/hr Vancomycin HCl (Vancomycin (Pre-Docked)) 250 mls @ 166.667 mls/hr IVPB BID [facility] Last Admin: 08/31/16 09:23 Dose: 166.667 mls/hr Mupirocin (Bactroban Ointment (For Decolonization) -) 1 applic NS BID [facility] Stop: 09/04/16 09:59 Last Admin: 08/31/16 09:22 Dose: 1 applic Potassium Chloride (Kcl Oral Solution -) 40 meq PO DAILY [facility] Last Admin: 08/31/16 09:22 Dose: 40 meq Ranitidine HCl (Zantac Oral Solution -) 150 mg PO DAILY [facility] Last Admin: 08/31/16 09:23 Dose: 150 mg Scopolamine HBr (Transderm-Scop -) 1 patch TD Q72H [facility] Last Admin: 08/30/16 04:45 Dose: 1 patch Sodium Chloride (Normal Saline -) 1,000 ml IV Q20M PRN PRN Reason: MAP<65mm Hg OR SBP <90 Last Admin: 08/29/16 23:34 Dose: 1,000 ml Vancomycin HCl (Vancomycin Oral Solution) 125 mg PO Q6HPO [facility] Last Admin: 08/31/16 05:53 Dose: 125 mg - Objective Vital Signs: Vital Signs Temperature 97.3 F L 08/31/16 09:14 Pulse Rate 59 L 08/31/16 09:14 Respiratory Rate 12 08/31/16 09:14 Blood Pressure 109/85 08/31/16 09:14 O2 Sat by Pulse Oximetry (%) 100 08/31/16 09:12 Cardiovascular: Yes: S1, S2 Respiratory: Yes: Mechanically Ventilated Gastrointestinal: Yes: Normal Bowel Sounds, Soft Labs: CBC, BMP 08/31/16 05:20 08/31/16 05:20 INR, PTT INR 2.34 (0.82-1.09) H 08/30/16 08:00 Problem List - Problems (1) Pneumonia Assessment/Plan: IV ABX ID CONSULT Code(s): J18.9 - PNEUMONIA, UNSPECIFIED ORGANISM Qualifiers: Pneumonia type: due to unspecified organism Laterality: right Lung location: unspecified part of lung Qualified Code(s): J18.9 - Pneumonia, unspecified organism (2) Sepsis Assessment/Plan: MONITOR LABS IV ABX Code(s): A41.9 - SEPSIS, UNSPECIFIED ORGANISM Qualifiers: Sepsis type: sepsis due to unspecified organism Qualified Code(s): A41.9 - Sepsis, unspecified organism (3) Parkinson disease Code(s): G20 - PARKINSON'S DISEASE (4) Respiratory failure Assessment/Plan: VENT PER PULM Code(s): J96.90 - RESPIRATORY FAILURE, UNSP, UNSP W HYPOXIA OR HYPERCAPNIA Qualifiers: Chronicity: acute Respiratory failure complication: hypoxia and hypercapnia Qualified Code(s): J96.01 - Acute respiratory failure with hypoxia
--- NOTE | 2016-08-31 13:07 | PN ---
Progress Note (short form) - Note Progress Note: ID Consult dictated Sepsis RLL pneumonia/ sepsis secondary to pneumonia Chronic rep failure S/P osteomyelitis L foot Recent dx C difficile Await sepsis work up Continue empiric zosyn/ vanco Tx C difficile
--- NOTE | 2016-08-31 14:11 | CON.CARD ---
Consult Consult Specialty:: cardiology Reason for Consultation:: hx CAD - History of Present Illness History of Present Illness: The patient is an 81 year old white male, with a significant past medical history of hyperlipidemia, atrial fibrillation, COPD, chronic respiratory failure s/p tracheostomy, coronary artery disease, CVA and dementia, who presents to the emergency department via EMS from [facility] with fever. [facility] staff report that that patient had a fever of up to 100.4 earlier today. He presents to the ED for further evaluation. HPI is limited due to patients baseline clinical condition. Allergies: Latex, NKDA. Past Surgical History: Right Inguinal Hernia, Left Knee Replacement, Pins in Left Hip Hx osteomyelitis-->PICC line and IV antibiotics 07/2016. Social History: Former smoker (quit 40 years ago). No alcohol or drug use reported. PCP: Dr. 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: CVA, Dementia, Parkinson's Cardio/Vascular: Yes: AFIB, CAD, Hyperlipdemia Pulmonary: Yes: COPD Gastrointestinal: Yes: GI Bleed Renal/: Yes: BPH Infectious Disease: Yes: Other (, aspiration pneumonia in the past) Musculoskeletal: Yes: Hemiplegia - Past Surgical History Past Surgical History: Yes: Hernia Repair (right inguinal hernia repair), Joint Replacement (pins in left hip) - Alcohol/Substance Use Hx Alcohol Use: No - Smoking History Smoking history: Unknown if ever smoked Have you smoked in the past 12 months: No Aproximately how many cigarettes per day: 0 If you are a former smoker, when did you quit?: 40 years ago - Social History Usual Living Arrangement: Correction ADL: Support Services (has home health aid) 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 History of Recent Travel: No Home Medications - Allergies Allergies/Adverse Reactions: Allergies Allergy/AdvReac Type Severity Reaction Status Date / Time latex Allergy Verified 08/29/16 19:54 No Known Drug Allergies Allergy Verified 08/29/16 19:54 - Home Medications Home Medications: Ambulatory Orders Ferrous Sulfate 325 mg GT HS 02/27/15 Fludrocortisone Acetate [Florinef -] 0.1 mg GT BID 02/28/15 Acetaminophen [Tylenol .Regular Strength -] 650 mg NR Q4H PRN #0 tablet Scopolamine Hydrobromide [Transderm-Scop -] 1 patch TD Q72H patch.td72 Albuterol 2.5/Ipratropium 0.5 [Duoneb -] 1 neb IH QID 03/20/16 Ascorbic Acid [Vitamin C -] 500 mg GT DAILY 03/20/16 Carbidopa/Levodopa [Carbidopa-Levodopa 25-100 Tab] 1 each GT BID 03/20/16 Metoprolol Tartrate [Lopressor -] 12.5 mg GT TID tablet 03/27/16 Multivitamins [Multivit ([facility] Formulary)] 1 tab GT DAILY 04/30/16 Ranitidine [Zantac -] 150 mg GT BID 04/30/16 Furosemide Oral Solution [Lasix Oral Solution -] 40 mg GT BID@0600,1400 udc 01/18 Naph,Mb-Db/K pH,Mbdb [PHOS-NaK PACKET -] 1 packet PEG TID pow 05/12/16 Aa/[place] Shar,[place]hey/Arg/C/Zn/Cu [Lps Critical Care Liquid] 30 ml PO DAILY Donepezil HCl [Aricept -] 10 mg PO DAILY 07/09/16 Lactobacillus Acidophilus [Bacid -] 1 tab PO BID 07/09/16 Mirtazapine [Remeron Soltab -] 15 mg PO DAILY 07/09/16 Amino Acids/Protein Hydrolys [Prostat Sugar-Free Packet -] 30 ml GT BID@0800, 1730 packet 07/14/16 Collagenase Clostridium Hist. [Santyl -] 1 applic TP DAILY tube 07/14/16 Mirtazapine [Remeron -] 15 mg GT HS tablet 07/14/16 Picc Line Flush [Picc Line Flush -] 8 ml IVPUSH PRN PRN #0 ml 07/14/16 Piperacillin/Tazob 4.5 gm [Zosyn 4.5GM Ivpb (Pre-Docked)] 4.5 gm IVPB Q8H-IV # 30 bag 07/14/16 Potassium Chloride Oral Soln [KCl Oral Solution -] 40 meq PO BID cup 07/14/16 Warfarin Na [Coumadin -] 5 mg PO DAILY@1800 tablet 07/14/16 Review of Systems Unable to obtain ROS, reason: dementia - Risk Factors Known Risk Factors: Yes: Age, Hypercholesterolemia, Hypertension, Physical Inactivity, Other (dementia) Vital Signs: Vital Signs Temperature 98 F 08/31/16 12:00 Pulse Rate 68 08/31/16 14:00 Respiratory Rate 14 08/31/16 14:00 Blood Pressure 135/85 08/31/16 14:00 O2 Sat by Pulse Oximetry (%) 100 08/31/16 09:12 Constitutional: Yes: Other HENT: Yes: Other (trach site without exudate) Respiratory: Yes: Diminished Gastrointestinal: Yes: Other (PEG tube site dry) JVD: Yes Carotid Bruit: No PMI: Non-Displaced Heart Sounds: Yes: S1, S2 Murmur: Yes: Systolic Murmur, Grade 2 Extremities: Yes: Other (left foot dreesing dry) Edema: Yes Edema: LLE: 1+, RLE: 1+ Peripheral Pulses WNL: No Peripheral Pulses: 1+ Left Doralis Pedis, 1+ Right Dorsalis Pedis Integumentary: Yes: Venous Stasis Changes Neurological: Yes: Weakness, Other (dementia) Psychiatric: Yes: Other - Other Data Labs, Other Data: CBC, BMP 08/31/16 05:20 08/31/16 05:20 INR, PTT INR 2.34 (0.82-1.09) H 08/30/16 08:00 Abnormal Lab Results 08/31/16 08/31/16 05:20 05:20 WBC 10.8 H D RBC 3.60 L Hgb 11.2 L Hct 33.0 L Anion Gap 5 L Creatinine 0.6 L Random Glucose 127 H D Calcium 7.9 L Echo: Report Reviewed (2014: LIMITED Study; normal LVEF) Imaging - Results Chest X-ray: Image Reviewed (pulmonary vascular congestion) EKG: Image Reviewed (NSR; 1st degree AVB) Problem List - Problems (1) Pneumonia Assessment/Plan: treatment per ID. Code(s): J18.9 - PNEUMONIA, UNSPECIFIED ORGANISM Qualifiers: Pneumonia type: due to unspecified organism Laterality: right Lung location: unspecified part of lung Qualified Code(s): J18.9 - Pneumonia, unspecified organism (2) Sepsis Code(s): A41.9 - SEPSIS, UNSPECIFIED ORGANISM Qualifiers: Sepsis type: sepsis due to unspecified organism Qualified Code(s): A41.9 - Sepsis, unspecified organism (3) A-fib Assessment/Plan: INR therapeutic. Not on AV conductin daniel; f/u HR. Code(s): I48.91 - UNSPECIFIED ATRIAL FIBRILLATION Qualifiers: Atrial fibrillation type: chronic Qualified Code(s): I48.2 - Chronic atrial fibrillation (4) Acute on chronic diastolic CHF (congestive heart failure) Assessment/Plan: On furosemide. Consider repeat ECHO (limited study in 2014). F/u Is and Os, daily weight, electrolytes (normal 08/31/16), BUN/Cr. Code(s): I50.33 - ACUTE ON CHRONIC DIASTOLIC (CONGESTIVE) HEART FAILURE (5) Leukocytosis Code(s): D72.829 - ELEVATED WHITE BLOOD CELL COUNT, UNSPECIFIED Qualifiers: Leukocytosis type: other Qualified Code(s): D72.828 - Other elevated white blood cell count (6) Dementia Code(s): F03.90 - UNSPECIFIED DEMENTIA WITHOUT BEHAVIORAL DISTURBANCE Qualifiers: Dementia type: Parkinson's disease Dementia behavioral disturbance: with behavioral disturbance Qualified Code(s): G20 - Parkinson's disease; F02.81 - Dementia in other diseases classified elsewhere with behavioral disturbance
--- NOTE | 2016-08-31 15:34 | CONS ---
DATE OF CONSULTATION: DATE OF DICTATION: 08/31/2016 The patient is an 81-year-old male evaluated for sepsis. History is obtained from the chart as he cannot give a history secondary to dementia. The patient was recently hospitalized at [facility] from July 09 through the of this year, at which time he was diagnosed with osteomyelitis of the left foot. He had a wound culture which grew mixed organisms. [facility] with [facility] line to complete an additional 5 weeks of IV antibiotic therapy for osteomyelitis. As per my calculation, he would have finished his treatment on or about August 19. He now returns with reports of fever and hypotension at the [facility]. He was admitted to the intensive care unit after noted to be febrile and hypotensive in the emergency room. Chest x-ray showed a right lower lobe infiltrate. He was empirically treated with vancomycin and Zosyn. He is not verbally responsive and unable to give any additional details. No reports of shaking chills, labored breathing, cough, sputum production, vomiting. He has had loose bowel movements. No reports of grossly purulent urine. A PICC line was present in the [facility]. No reports of erythema or tenderness at that site. PAST MEDICAL HISTORY: Positive for parkinsonism, dementia, respiratory failure, tracheostomy, COPD, atrial fibrillation, hyperlipidemia, coronary artery disease, stroke, history of C. difficile diagnosed at the [facility]. PAST SURGICAL HISTORY: Status post tracheostomy, feeding gastrostomy, right inguinal hernia, left total knee replacement. No known allergies. Medications include Tylenol, Zosyn, vancomycin orally, vancomycin IV, Sinemet, Zantac, Lasix. SOCIAL HISTORY: He is a former smoker. He is a [facility] resident. He is totally dependent in activities of daily living. LABORATORY DATA: White count on admission 24.6, presently 10.8, hematocrit 33.0, platelet count 242, BUN 16, creatinine 0.6. Urinalysis: 119 white cells. Blood cultures preliminarily negative. Flu swab negative. PHYSICAL EXAMINATION: General: He is not verbally responsive. Vital Signs: Temperature 98, T-max 100.4. Blood pressure 119/78. Pulse 60, regular. Respirations 20 per minute. Eyes: Sclerae anicteric. ENT: Patient is status post tracheostomy. Heart Sounds: S1, S2. Lungs: Diminished breath sounds bilaterally. Abdomen: Obese, soft, nontender. Extremities, Skin: Positive for edema. There is a superficial ulceration present on the foot. No purulent drainage. Stage 1 to 2 sacral decubitus ulcer. IMPRESSION: 1. Sepsis. 2. Right lower lobe pneumonia, possible sepsis secondary to pneumonia. 3. Status post osteomyelitis of the left foot. 4. Recently diagnosed Clostridium difficile colitis. The patient was treated with vancomycin and Zosyn and appears to have clinically responded with defervescence and improvement in his white blood cell count. Will continue present therapy, await cultures, continue ventilatory support and ICU monitoring. Will follow. Thank you for the kind referral. ANAMARIA CORREA M.D. [id number]
[2016-08-31] MEDS: CHLORHEXIDINE GLUCONATE 4% CLEANSER FOR DECOLONIZATION TP SCH (21:38)
[2016-09-01] MEDS: PIPERACILLIN/TAZOB 3.375 GM 50 ML IVPB SCH ×4 (02:18→21:37)
[2016-09-01] MEDS: FUROSEMIDE 40 MG TABLET (FP) PO SCH ×2 (05:53→15:15)
[2016-09-01] MEDS: VANCOMYCIN 250 MG/5 ML ORAL SOLUTION PO SCH ×5 (05:54→18:08)
[2016-09-01 06:08] LABS: BASOPHIL 0.3 % (0-2.0); EOSINOPHIL 8.5 % (0-4.5); MCHC 33.7 g/dl (32.0-35.9); MEAN CELL VOLUME 91.9 fl (80-96); NEUTROPHILS 60.3 % (42.8-82.8); PLATELET COUNT 262 K/MM3 (134-434); RDW 14.6 % (11.9-15.9); WHITE BLOOD COUNT 10.1 K/mm3 (4.0-10.0)
[2016-09-01 06:31] LABS: ALBUMIN 2.4 g/dl (3.4-5.0); ANION GAP 6 (8-16); CALCIUM 7.9 mg/dL (8.5-10.1); CO2 34 mmol/L (21-32); GLUCOSE,RANDOM 124 mg/dL (74-106); MAGNESIUM 2.1 mg/dL (1.8-2.4); PHOSPHOROUS 2.7 mg/dL (2.5-4.9); SGOT/AST 26 U/L (15-37)
[2016-09-01 06:33] LABS: ALK PHOS 81 U/L (45-117); BILIRUBIN,TOTAL 0.3 mg/dL (0.2-1.0); CREATININE 0.6 mg/dL (0.7-1.3); SGPT/ALT 19 U/L (12-78); TOT PROT 6.6 g/dl (6.4-8.2)
--- NOTE | 2016-09-01 08:10 | PN ---
Progress Note, Physician Chief Complaint: ID Vancomycin and Zosyn per Dr Kunz No fevers WBC originally elevated now down - Current Medication List Current Medications: Active Medications Acetaminophen (Tylenol -) 650 mg PO Q6H PRN PRN Reason: FEVER OR PAIN Carbidopa/Levodopa (Sinemet 25/100 -) 1 each PO BID [facility] Last Admin: 08/31/16 21:37 Dose: 1 each Chlorhexidine Gluconate (Hibiclens For Decolonization -) 1 applic TP HS [facility] Last Admin: 08/31/16 21:38 Dose: 1 applic Collagenase (Santyl -) 1 applic TP DAILY [facility] Last Admin: 08/31/16 09:22 Dose: 1 applic Furosemide (Lasix -) 40 mg PO BID@0600,1400 [facility] Last Admin: 09/01/16 05:53 Dose: 40 mg Piperacillin Sod/Tazobactam Sod (Zosyn 3.375gm Ivpb (Pre-Docked)) 50 mls @ 100 mls/hr IVPB Q8H-IV [facility] PRN Reason: Protocol Last Admin: 09/01/16 02:18 Dose: 100 mls/hr Vancomycin HCl (Vancomycin (Pre-Docked)) 250 mls @ 166.667 mls/hr IVPB BID [facility] Last Admin: 08/31/16 21:37 Dose: 166.667 mls/hr Mupirocin (Bactroban Ointment (For Decolonization) -) 1 applic NS BID [facility] Stop: 09/04/16 09:59 Last Admin: 08/31/16 21:38 Dose: 1 applic Potassium Chloride (Kcl Oral Solution -) 40 meq PO DAILY [facility] Last Admin: 08/31/16 09:22 Dose: 40 meq Ranitidine HCl (Zantac Oral Solution -) 150 mg PO DAILY [facility] Last Admin: 08/31/16 09:23 Dose: 150 mg Scopolamine HBr (Transderm-Scop -) 1 patch TD Q72H [facility] Last Admin: 08/30/16 04:45 Dose: 1 patch Sodium Chloride (Normal Saline -) 1,000 ml IV Q20M PRN PRN Reason: MAP<65mm Hg OR SBP <90 Last Admin: 08/29/16 23:34 Dose: 1,000 ml Vancomycin HCl (Vancomycin Oral Solution) 125 mg PO Q6HPO [facility] Last Admin: 09/01/16 05:54 Dose: 125 mg - Objective Vital Signs: Vital Signs Temperature 98.0 F 09/01/16 06:00 Pulse Rate 64 09/01/16 06:00 Respiratory Rate 14 09/01/16 06:08 Blood Pressure 106/65 09/01/16 06:00 O2 Sat by Pulse Oximetry (%) 100 08/31/16 21:00 Neck: Yes: Other (Trach) Cardiovascular: Yes: S1, S2 Respiratory: Yes: WNL, Regular, CTA Bilaterally Gastrointestinal: Yes: Soft. No: Tenderness Labs: CBC, BMP 09/01/16 05:00 09/01/16 05:00 INR, PTT INR 2.34 (0.82-1.09) H 08/30/16 08:00 Assessment/Plan Microbiology 08/29/16 21:55 Nasopharyngeal Swab Influenza Types A,B Antigen (FAVIAN) - Final 08/29/16 21:55 Nasopharyngeal Swab - Final 08/29/16 20:10 Blood - Peripheral Venous Blood Culture - Preliminary NO GROWTH OBTAINED AFTER 48 HOURS, INCUBATION TO CONTINUE FOR 3 DAYS. 08/29/16 20:10 Blood - Peripheral Venous Blood Culture - Preliminary NO GROWTH OBTAINED AFTER 48 HOURS, INCUBATION TO CONTINUE FOR 3 DAYS. Laboratory Tests 08/30/16 09/01/16 09/01/16 02:10 05:00 05:00 WBC 10.1 H Hgb 11.3 L Hct 33.6 L Plt Count 262 BUN 15 Creatinine 0.6 L Creat Clearance w eGFR > 60 Ur Leukocyte Esterase 3+ H Urine RBC 4 Urine WBC 119 Assessment Sepsis Respiratory failure Pneumonia Resistant organisms by history Plan Sputum c/s order Continue antibiotics Glenn Parker MD
[2016-09-01] MEDS ORDERED: SODIUM CHLORIDE 0.9% 1000 ML INFUS.BAG IV PRN (08:55)
[2016-09-01] MEDS ORDERED: ACETAMINOPHEN 325 MG TABLET (FP) PO PRN (08:55)
[2016-09-01] MEDS ORDERED: PIPERACILLIN/TAZOB 3.375 GM 50 ML IVPB SCH (09:00)
--- NOTE | 2016-09-01 09:09 | PN ---
Progress Note, Physician - Current Medication List Current Medications: Active Medications Acetaminophen (Tylenol -) 650 mg PO Q6H PRN PRN Reason: FEVER OR PAIN Carbidopa/Levodopa (Sinemet 25/100 -) 1 each PO BID [facility] Chlorhexidine Gluconate (Hibiclens For Decolonization -) 1 applic TP HS [facility] Collagenase (Santyl -) 1 applic TP DAILY [facility] Furosemide (Lasix -) 40 mg PO BID@0600,1400 [facility] Vancomycin HCl (Vancomycin (Pre-Docked)) 250 mls @ 166.667 mls/hr IVPB BID [facility] Piperacillin Sod/Tazobactam Sod (Zosyn 3.375gm Ivpb (Pre-Docked)) 50 mls @ 100 mls/hr IVPB Q6H-IV [facility] PRN Reason: Protocol Mupirocin (Bactroban Ointment (For Decolonization) -) 1 applic NS BID [facility] Stop: 09/04/16 09:59 Potassium Chloride (Kcl Oral Solution -) 40 meq PO DAILY [facility] Ranitidine HCl (Zantac Oral Solution -) 150 mg PO DAILY [facility] Scopolamine HBr (Transderm-Scop -) 1 patch TD Q72H [facility] Sodium Chloride (Normal Saline -) 1,000 ml IV Q20M PRN PRN Reason: MAP<65mm Hg OR SBP <90 Vancomycin HCl (Vancomycin Oral Solution) 125 mg PO Q6HPO [facility] - Objective Vital Signs: Vital Signs Temperature 98.0 F 09/01/16 06:00 Pulse Rate 64 09/01/16 06:00 Respiratory Rate 14 09/01/16 06:08 Blood Pressure 106/65 09/01/16 06:00 O2 Sat by Pulse Oximetry (%) 100 08/31/16 21:00 Cardiovascular: Yes: Regular Rate and Rhythm Respiratory: Yes: Regular, CTA Bilaterally Gastrointestinal: Yes: Normal Bowel Sounds, Soft Labs: CBC, BMP 09/01/16 05:00 09/01/16 05:00 INR, PTT INR 2.34 (0.82-1.09) H 08/30/16 08:00 Problem List - Problems (1) Pneumonia Assessment/Plan: IV ABX ID CONSULT NOTED CULTURES Code(s): J18.9 - PNEUMONIA, UNSPECIFIED ORGANISM Qualifiers: Pneumonia type: due to unspecified organism Laterality: right Lung location: unspecified part of lung Qualified Code(s): J18.9 - Pneumonia, unspecified organism (2) Sepsis Assessment/Plan: MONITOR LABS IV ABX AWAIT CULTURES Code(s): A41.9 - SEPSIS, UNSPECIFIED ORGANISM Qualifiers: Sepsis type: sepsis due to unspecified organism Qualified Code(s): A41.9 - Sepsis, unspecified organism (3) Parkinson disease Code(s): G20 - PARKINSON'S DISEASE (4) Respiratory failure Assessment/Plan: VENT PER PULM SAT WELL Code(s): J96.90 - RESPIRATORY FAILURE, UNSP, UNSP W HYPOXIA OR HYPERCAPNIA Qualifiers: Chronicity: acute Respiratory failure complication: hypoxia and hypercapnia Qualified Code(s): J96.01 - Acute respiratory failure with hypoxia
[2016-09-01] MEDS: POTASSIUM CHLORIDE 40 MEQ/30 ML UNIT DOSE CUP PO SCH (11:25)
[2016-09-01] MEDS: RANITIDINE HCL 150 MG/10 ML UNIT-DOSE CUP PO SCH (11:25)
[2016-09-01] MEDS: CARBIDOPA/LEVODOPA 25/100 TABLET (FP) PO SCH ×2 (11:25→21:38)
[2016-09-01] MEDS: MUPIROCIN 2% TOPICAL OINTMENT FOR DECOLONIZATION NS SCH ×2 (11:46→21:38)
[2016-09-01] MEDS: VANCOMYCIN 1 GRAM (PRE-DOCKED) 250 ML IVPB SCH ×2 (12:47→21:38)
[2016-09-01] MEDS: COLLAGENASE CLOSTRIDIUM HIST. 30 GRAMS TUBE TP SCH (12:48)
--- NOTE | 2016-09-01 13:05 | PN ---
Progress Note, Physician History of Present Illness: seen and examined today in nad. unresponsive. moved out of ICU to med/surg today. no reported overnight events. - Current Medication List Current Medications: Active Medications Acetaminophen (Tylenol -) 650 mg PO Q6H PRN PRN Reason: FEVER OR PAIN Carbidopa/Levodopa (Sinemet 25/100 -) 1 each PO BID [facility] Last Admin: 09/01/16 11:25 Dose: 1 each Chlorhexidine Gluconate (Hibiclens For Decolonization -) 1 applic TP HS [facility] Collagenase (Santyl -) 1 applic TP DAILY [facility] Last Admin: 09/01/16 12:48 Dose: 1 applic Furosemide (Lasix -) 40 mg PO BID@0600,1400 [facility] Vancomycin HCl (Vancomycin (Pre-Docked)) 250 mls @ 166.667 mls/hr IVPB BID [facility] Last Admin: 09/01/16 12:47 Dose: 166.667 mls/hr Piperacillin Sod/Tazobactam Sod (Zosyn 3.375gm Ivpb (Pre-Docked)) 50 mls @ 100 mls/hr IVPB Q6H-IV [facility] PRN Reason: Protocol Last Admin: 09/01/16 11:22 Dose: Not Given Mupirocin (Bactroban Ointment (For Decolonization) -) 1 applic NS BID [facility] Stop: 09/04/16 09:59 Last Admin: 09/01/16 11:46 Dose: Not Given Potassium Chloride (Kcl Oral Solution -) 40 meq PO DAILY [facility] Last Admin: 09/01/16 11:25 Dose: 40 meq Ranitidine HCl (Zantac Oral Solution -) 150 mg PO DAILY [facility] Last Admin: 09/01/16 11:25 Dose: 150 mg Scopolamine HBr (Transderm-Scop -) 1 patch TD Q72H [facility] Sodium Chloride (Normal Saline -) 1,000 ml IV Q20M PRN PRN Reason: MAP<65mm Hg OR SBP <90 Vancomycin HCl (Vancomycin Oral Solution) 125 mg PO Q6HPO [facility] - Objective Vital Signs: Vital Signs Temperature 98.0 F 09/01/16 06:00 Pulse Rate 62 09/01/16 08:00 Respiratory Rate 12 09/01/16 10:30 Blood Pressure 104/62 09/01/16 08:00 O2 Sat by Pulse Oximetry (%) 100 08/31/16 21:00 Constitutional: Yes: No Distress, Calm, Obese HENT: Yes: Atraumatic, Normocephalic Neck: Yes: Other (tracheostomy in place) Respiratory: Yes: Regular, Diminished. No: Rales, Rhonchi, Wheezes Gastrointestinal: Yes: Normal Bowel Sounds, Soft. No: Distention, Tenderness Edema: Yes Edema: LLE: 3+, RLE: 3+ Peripheral Pulses WNL: Yes Peripheral Pulses: Left Doralis Pedis: 2+, Right Dorsalis Pedis: 2+ Neurological: Yes: Unresponsive. No: Alert, Oriented Psychiatric: No: Alert, Oriented Labs: CBC, BMP 09/01/16 05:00 09/01/16 05:00 INR, PTT INR 2.34 (0.82-1.09) H 08/30/16 08:00 - ....Imaging Chest X-ray: Report Reviewed, Image Reviewed EKG: Report Reviewed, Image Reviewed Other: Report Reviewed, Image Reviewed Assessment/Plan IMP: sepsis PNA Chronic respiratory failure Chronic AF Chronic diastolic CHF REC: AF: -cont coumadin for goal INR 2-3 -HR well controlled without AV lucy blockers, had been on lopressor in past, currently does not require Acute on chronic diastolic CHF- chronic LE edema -has developed intravascular depletion and hypotension in the past with aggressive diuresis -edema likely in large part secondary to third spacing -cont current Lasix dose Sepsis: -sepsis due to PNA -receiving Abx
--- NOTE | 2016-09-01 13:19 | PN ---
Progress Note, Physician History of Present Illness: PULMONARY UNRESPONSIVE ON VENT SUPPORT,AC MODE - Current Medication List Current Medications: Active Medications Acetaminophen (Tylenol -) 650 mg PO Q6H PRN PRN Reason: FEVER OR PAIN Carbidopa/Levodopa (Sinemet 25/100 -) 1 each PO BID [facility] Last Admin: 09/01/16 11:25 Dose: 1 each Chlorhexidine Gluconate (Hibiclens For Decolonization -) 1 applic TP HS [facility] Collagenase (Santyl -) 1 applic TP DAILY [facility] Last Admin: 09/01/16 12:48 Dose: 1 applic Furosemide (Lasix -) 40 mg PO BID@0600,1400 [facility] Vancomycin HCl (Vancomycin (Pre-Docked)) 250 mls @ 166.667 mls/hr IVPB BID [facility] Last Admin: 09/01/16 12:47 Dose: 166.667 mls/hr Piperacillin Sod/Tazobactam Sod (Zosyn 3.375gm Ivpb (Pre-Docked)) 50 mls @ 100 mls/hr IVPB Q6H-IV [facility] PRN Reason: Protocol Last Admin: 09/01/16 11:22 Dose: Not Given Mupirocin (Bactroban Ointment (For Decolonization) -) 1 applic NS BID [facility] Stop: 09/04/16 09:59 Last Admin: 09/01/16 11:46 Dose: Not Given Potassium Chloride (Kcl Oral Solution -) 40 meq PO DAILY [facility] Last Admin: 09/01/16 11:25 Dose: 40 meq Ranitidine HCl (Zantac Oral Solution -) 150 mg PO DAILY [facility] Last Admin: 09/01/16 11:25 Dose: 150 mg Scopolamine HBr (Transderm-Scop -) 1 patch TD Q72H [facility] Sodium Chloride (Normal Saline -) 1,000 ml IV Q20M PRN PRN Reason: MAP<65mm Hg OR SBP <90 Vancomycin HCl (Vancomycin Oral Solution) 125 mg PO Q6HPO [facility] - Objective Vital Signs: Vital Signs Temperature 98.2 F 09/01/16 10:00 Pulse Rate 68 09/01/16 10:00 Respiratory Rate 12 09/01/16 10:30 Blood Pressure 110/64 09/01/16 10:00 O2 Sat by Pulse Oximetry (%) 100 08/31/16 21:00 Constitutional: Yes: Well Nourished, Other (UNRESPONSIVE) Eyes: Yes: WNL, Occular Prosthesis Neck: Yes: Supple (TRACH) Cardiovascular: Yes: Pulse Irregular, S1, S2 Respiratory: Yes: Rhonchi (SCATTEREED JARVIS RHONCHI) Gastrointestinal: Yes: Normal Bowel Sounds, Soft Edema: Yes Labs: CBC, BMP 09/01/16 05:00 09/01/16 05:00 INR, PTT INR 2.34 (0.82-1.09) H 08/30/16 08:00 Assessment/Plan Problem List - Problems (1) Pneumonia Code(s): J18.9 - PNEUMONIA, UNSPECIFIED ORGANISM Qualifiers: Pneumonia type: due to unspecified organism Laterality: right Lung location: unspecified part of lung Qualified Code(s): J18.9 - Pneumonia, unspecified organism (2) Sepsis Code(s): A41.9 - SEPSIS, UNSPECIFIED ORGANISM Qualifiers: Sepsis type: sepsis due to unspecified organism Qualified Code(s): A41.9 - Sepsis, unspecified organism (3) A-fib Code(s): I48.91 - UNSPECIFIED ATRIAL FIBRILLATION Qualifiers: Atrial fibrillation type: chronic Qualified Code(s): I48.2 - Chronic atrial fibrillation (4) Acute on chronic diastolic CHF (congestive heart failure) Code(s): I50.33 - ACUTE ON CHRONIC DIASTOLIC (CONGESTIVE) HEART FAILURE (5) Acute respiratory failure with hypoxia Code(s): J96.01 - ACUTE RESPIRATORY FAILURE WITH HYPOXIA (6) CHF (congestive heart failure) Code(s): I50.9 - HEART FAILURE, UNSPECIFIED (7) Dementia Code(s): F03.90 - UNSPECIFIED DEMENTIA WITHOUT BEHAVIORAL DISTURBANCE Qualifiers: Dementia type: Parkinson's disease Dementia behavioral disturbance: with behavioral disturbance Qualified Code(s): G20 - Parkinson's disease; F02.81 - Dementia in other diseases classified elsewhere with behavioral disturbance (8) Foot ulcer Code(s): L97.509 - NON-PRESSURE CHRONIC ULCER OTH PRT UNSP FOOT W UNSP SEVERITY (9) Parkinson disease Code(s): G20 - PARKINSON'S DISEASE (10) Pressure ulcer Code(s): L89.90 - PRESSURE ULCER OF UNSPECIFIED SITE, UNSPECIFIED STAGE Qualifiers: Pressure ulcer stage: stage II Qualified Code(s): L89.92 - Pressure ulcer of unspecified site, stage 2 (11) Ventilator dependent Code(s): Z99.11 - DEPENDENCE ON RESPIRATOR [VENTILATOR] STATUS PLAN - vent support - scopolamine -surgery for evaluation of decubitus as source of infection -collagenase to decubes -IV fluids -cont tube feeds -ABX -cont vanco po for c. diff - parkinson's meds -PPI -anticoagulation afib DR MOJICA
[2016-09-01] MEDS: CHLORHEXIDINE GLUCONATE 4% CLEANSER FOR DECOLONIZATION TP SCH (21:38)
[2016-09-02] MEDS: VANCOMYCIN 250 MG/5 ML ORAL SOLUTION PO SCH ×4 (00:02→18:21)
[2016-09-02] MEDS: PIPERACILLIN/TAZOB 3.375 GM 50 ML IVPB SCH ×4 (03:32→21:50)
[2016-09-02] MEDS: SCOPOLAMINE HYDROBROMIDE 1 PATCH PATCH.TD72 TD SCH (03:51)
[2016-09-02] MEDS: FUROSEMIDE 40 MG TABLET (FP) PO SCH ×2 (06:16→15:03)
--- NOTE | 2016-09-02 08:51 | PN ---
Progress Note, Physician - Current Medication List Current Medications: Active Medications Acetaminophen (Tylenol -) 650 mg PO Q6H PRN PRN Reason: FEVER OR PAIN Carbidopa/Levodopa (Sinemet 25/100 -) 1 each PO BID [facility] Last Admin: 09/01/16 21:38 Dose: 1 each Chlorhexidine Gluconate (Hibiclens For Decolonization -) 1 applic TP HS [facility] Last Admin: 09/01/16 21:38 Dose: Not Given Collagenase (Santyl -) 1 applic TP DAILY [facility] Last Admin: 09/01/16 12:48 Dose: 1 applic Furosemide (Lasix -) 40 mg PO BID@0600,1400 [facility] Last Admin: 09/02/16 06:16 Dose: 40 mg Vancomycin HCl (Vancomycin (Pre-Docked)) 250 mls @ 166.667 mls/hr IVPB BID [facility] Last Admin: 09/01/16 21:38 Dose: 166.667 mls/hr Piperacillin Sod/Tazobactam Sod (Zosyn 3.375gm Ivpb (Pre-Docked)) 50 mls @ 100 mls/hr IVPB Q6H-IV [facility] PRN Reason: Protocol Last Admin: 09/02/16 03:32 Dose: 100 mls/hr Mupirocin (Bactroban Ointment (For Decolonization) -) 1 applic NS BID [facility] Stop: 09/04/16 09:59 Last Admin: 09/01/16 21:38 Dose: Not Given Potassium Chloride (Kcl Oral Solution -) 40 meq PO DAILY [facility] Last Admin: 09/01/16 11:25 Dose: 40 meq Ranitidine HCl (Zantac Oral Solution -) 150 mg PO DAILY [facility] Last Admin: 09/01/16 11:25 Dose: 150 mg Scopolamine HBr (Transderm-Scop -) 1 patch TD Q72H [facility] Last Admin: 09/02/16 03:51 Dose: 1 patch Sodium Chloride (Normal Saline -) 1,000 ml IV Q20M PRN PRN Reason: MAP<65mm Hg OR SBP <90 Vancomycin HCl (Vancomycin Oral Solution) 125 mg PO Q6HPO [facility] Last Admin: 09/02/16 06:16 Dose: 125 mg - Objective Vital Signs: Vital Signs Temperature 97.6 F 09/02/16 06:00 Pulse Rate 64 09/02/16 06:00 Respiratory Rate 12 09/02/16 06:30 Blood Pressure 134/79 09/02/16 06:00 O2 Sat by Pulse Oximetry (%) 95 09/01/16 21:00 Cardiovascular: Yes: Regular Rate and Rhythm Respiratory: Yes: Mechanically Ventilated Gastrointestinal: Yes: Normal Bowel Sounds, Soft Labs: CBC, BMP 09/01/16 05:00 09/01/16 05:00 INR, PTT INR 2.34 (0.82-1.09) H 08/30/16 08:00 Problem List - Problems (1) Pneumonia Assessment/Plan: IV ABX ID CONSULT NOTED CULTURES Code(s): J18.9 - PNEUMONIA, UNSPECIFIED ORGANISM Qualifiers: Pneumonia type: due to unspecified organism Laterality: right Lung location: unspecified part of lung Qualified Code(s): J18.9 - Pneumonia, unspecified organism (2) Sepsis Assessment/Plan: MONITOR LABS IV ABX AWAIT CULTURES Code(s): A41.9 - SEPSIS, UNSPECIFIED ORGANISM Qualifiers: Sepsis type: sepsis due to unspecified organism Qualified Code(s): A41.9 - Sepsis, unspecified organism (3) Parkinson disease Code(s): G20 - PARKINSON'S DISEASE (4) Respiratory failure Assessment/Plan: VENT PER PULM SAT WELL Code(s): J96.90 - RESPIRATORY FAILURE, UNSP, UNSP W HYPOXIA OR HYPERCAPNIA Qualifiers: Chronicity: acute Respiratory failure complication: hypoxia and hypercapnia Qualified Code(s): J96.01 - Acute respiratory failure with hypoxia
--- NOTE | 2016-09-02 09:20 | PN ---
Progress Note, Physician Chief Complaint: sleeping, appears comfortable - Current Medication List Current Medications: Active Medications Acetaminophen (Tylenol -) 650 mg PO Q6H PRN PRN Reason: FEVER OR PAIN Carbidopa/Levodopa (Sinemet 25/100 -) 1 each PO BID [facility] Last Admin: 09/01/16 21:38 Dose: 1 each Chlorhexidine Gluconate (Hibiclens For Decolonization -) 1 applic TP HS [facility] Last Admin: 09/01/16 21:38 Dose: Not Given Collagenase (Santyl -) 1 applic TP DAILY [facility] Last Admin: 09/01/16 12:48 Dose: 1 applic Furosemide (Lasix -) 40 mg PO BID@0600,1400 [facility] Last Admin: 09/02/16 06:16 Dose: 40 mg Vancomycin HCl (Vancomycin (Pre-Docked)) 250 mls @ 166.667 mls/hr IVPB BID [facility] Last Admin: 09/01/16 21:38 Dose: 166.667 mls/hr Piperacillin Sod/Tazobactam Sod (Zosyn 3.375gm Ivpb (Pre-Docked)) 50 mls @ 100 mls/hr IVPB Q6H-IV [facility] PRN Reason: Protocol Last Admin: 09/02/16 03:32 Dose: 100 mls/hr Mupirocin (Bactroban Ointment (For Decolonization) -) 1 applic NS BID [facility] Stop: 09/04/16 09:59 Last Admin: 09/01/16 21:38 Dose: Not Given Potassium Chloride (Kcl Oral Solution -) 40 meq PO DAILY [facility] Last Admin: 09/01/16 11:25 Dose: 40 meq Ranitidine HCl (Zantac Oral Solution -) 150 mg PO DAILY [facility] Last Admin: 09/01/16 11:25 Dose: 150 mg Scopolamine HBr (Transderm-Scop -) 1 patch TD Q72H [facility] Last Admin: 09/02/16 03:51 Dose: 1 patch Sodium Chloride (Normal Saline -) 1,000 ml IV Q20M PRN PRN Reason: MAP<65mm Hg OR SBP <90 Vancomycin HCl (Vancomycin Oral Solution) 125 mg PO Q6HPO [facility] Last Admin: 09/02/16 06:16 Dose: 125 mg - Objective Vital Signs: Vital Signs Temperature 97.6 F 09/02/16 06:00 Pulse Rate 64 09/02/16 06:00 Respiratory Rate 12 09/02/16 06:30 Blood Pressure 134/79 09/02/16 06:00 O2 Sat by Pulse Oximetry (%) 95 09/01/16 21:00 Constitutional: Yes: No Distress HENT: Yes: Other (trach, intubated) Cardiovascular: Yes: Pulse Irregular Respiratory: Yes: Other (= breath sounds bilaterally) Gastrointestinal: Yes: Soft, Abdomen, Obese Edema: Yes Edema: LLE: 1+, RLE: 1+ Labs: CBC, BMP 09/01/16 05:00 09/01/16 05:00 INR, PTT INR 2.34 (0.82-1.09) H 08/30/16 08:00 Laboratory Tests 08/30/16 09/01/16 09/01/16 08:00 05:00 05:00 WBC 10.1 H Hgb 11.3 L Plt Count 262 INR 2.34 H Sodium 143 Potassium 3.9 BUN 15 Phosphorus 2.7 Magnesium 2.1 Total Bilirubin 0.3 D AST 26 D ALT 19 D Alkaline Phosphatase 81 D - ....Imaging Chest X-ray: Report Reviewed Assessment/Plan Sepsis secondary to PNA Chronic respiratory failure Chronic AF Chronic diastolic CHF 1. PNA: on abx as per PMD 2. Chronic resp. failure: mechanically ventilated on AC mode 3. AF: chronic, with controlled heart rate off AV lucy agents Maintain INR 2-3 4. Chronic diastolic CHF: euvolemic. Some edema present, likely due to 3rd spacing. Continue current Lasix dose.
[2016-09-02] MEDS: MUPIROCIN 2% TOPICAL OINTMENT FOR DECOLONIZATION NS SCH ×2 (10:13→21:52)
[2016-09-02] MEDS: RANITIDINE HCL 150 MG/10 ML UNIT-DOSE CUP PO SCH (10:13)
[2016-09-02] MEDS: CARBIDOPA/LEVODOPA 25/100 TABLET (FP) PO SCH ×2 (10:13→21:52)
[2016-09-02] MEDS: POTASSIUM CHLORIDE 40 MEQ/30 ML UNIT DOSE CUP PO SCH (10:14)
[2016-09-02] MEDS: COLLAGENASE CLOSTRIDIUM HIST. 30 GRAMS TUBE TP SCH (10:14)
[2016-09-02] MEDS: VANCOMYCIN 1 GRAM (PRE-DOCKED) 250 ML IVPB SCH ×2 (10:15→21:51)
--- NOTE | 2016-09-02 11:57 | PN ---
Progress Note (short form) - Note Progress Note: improved no fevers WBC trending down still with rectal tube day #4 antibiotics Vital Signs Period Temp Pulse Resp BP Sys/Limon Pulse Ox Last 24 Hr 97.6 F-98.6 F 64-83 12-18 118-134/61-79 95-100 cor-rrr lungs decreased bs at bases abd soft,nt ext edema unchanged CBC, BMP 09/01/16 05:00 09/01/16 05:00 Microbiology 08/29/16 20:10 Blood - Peripheral Venous Blood Culture - Preliminary NO GROWTH OBTAINED AFTER 72 HOURS, INCUBATION TO CONTINUE FOR 2 DAYS. 08/29/16 20:10 Blood - Peripheral Venous Blood Culture - Preliminary NO GROWTH OBTAINED AFTER 72 HOURS, INCUBATION TO CONTINUE FOR 2 DAYS. 08/31/16 13:00 Urine - Urine Clean Catch Urine Culture - Final NO GROWTH OBTAINED 08/30/16 07:30 Urine - Urine - Catheterized Urine Culture - Final Contaminated: Please Repeat 08/29/16 21:55 Nasopharyngeal Swab Respiratory Virus Panel - Preliminary 08/29/16 21:55 Nasopharyngeal Swab Influenza Types A,B Antigen (FAVIAN) - Final 08/29/16 21:55 Nasopharyngeal Swab - Final a/p pneumonia cdiff chronic resp failure s/p treatment for osteomyelitis chf afib continue antibiotics f/u sputum culture day #4 antibiotics
--- NOTE | 2016-09-02 12:38 | PN ---
Progress Note, Physician History of Present Illness: pulmonary no change unresponsive on vent support,ac mode - Current Medication List Current Medications: Active Medications Acetaminophen (Tylenol -) 650 mg PO Q6H PRN PRN Reason: FEVER OR PAIN Carbidopa/Levodopa (Sinemet 25/100 -) 1 each PO BID [facility] Last Admin: 09/02/16 10:13 Dose: 1 each Chlorhexidine Gluconate (Hibiclens For Decolonization -) 1 applic TP HS [facility] Last Admin: 09/01/16 21:38 Dose: Not Given Collagenase (Santyl -) 1 applic TP DAILY [facility] Last Admin: 09/02/16 10:14 Dose: 1 applic Furosemide (Lasix -) 40 mg PO BID@0600,1400 [facility] Last Admin: 09/02/16 06:16 Dose: 40 mg Vancomycin HCl (Vancomycin (Pre-Docked)) 250 mls @ 166.667 mls/hr IVPB BID [facility] Last Admin: 09/02/16 10:15 Dose: 166.667 mls/hr Piperacillin Sod/Tazobactam Sod (Zosyn 3.375gm Ivpb (Pre-Docked)) 50 mls @ 100 mls/hr IVPB Q6H-IV [facility] PRN Reason: Protocol Last Admin: 09/02/16 09:00 Dose: 100 mls/hr Mupirocin (Bactroban Ointment (For Decolonization) -) 1 applic NS BID [facility] Stop: 09/04/16 09:59 Last Admin: 09/02/16 10:13 Dose: Not Given Potassium Chloride (Kcl Oral Solution -) 40 meq PO DAILY [facility] Last Admin: 09/02/16 10:14 Dose: 40 meq Ranitidine HCl (Zantac Oral Solution -) 150 mg PO DAILY [facility] Last Admin: 09/02/16 10:13 Dose: 150 mg Scopolamine HBr (Transderm-Scop -) 1 patch TD Q72H [facility] Last Admin: 09/02/16 03:51 Dose: 1 patch Sodium Chloride (Normal Saline -) 1,000 ml IV Q20M PRN PRN Reason: MAP<65mm Hg OR SBP <90 Vancomycin HCl (Vancomycin Oral Solution) 125 mg PO Q6HPO [facility] Last Admin: 09/02/16 12:10 Dose: 125 mg - Objective Vital Signs: Vital Signs Temperature 98.7 F 09/02/16 10:00 Pulse Rate 64 09/02/16 11:27 Respiratory Rate 12 09/02/16 10:28 Blood Pressure 138/83 09/02/16 10:00 O2 Sat by Pulse Oximetry (%) 95 09/02/16 11:27 Constitutional: Yes: Well Nourished, Other (unresponsive) Eyes: Yes: WNL HENT: Yes: WNL Neck: Yes: Other (trach) Cardiovascular: Yes: Pulse Irregular, S1, S2 Respiratory: Yes: Diminished, Rhonchi (rhonchi anteriorly) Gastrointestinal: Yes: Normal Bowel Sounds, Soft Extremities: Yes: WNL Edema: Yes Labs: CBC, BMP Assessment/Plan Problem List - Problems (1) Pneumonia Code(s): J18.9 - PNEUMONIA, UNSPECIFIED ORGANISM Qualifiers: Pneumonia type: due to unspecified organism Laterality: right Lung location: unspecified part of lung Qualified Code(s): J18.9 - Pneumonia, unspecified organism (2) Sepsis Code(s): A41.9 - SEPSIS, UNSPECIFIED ORGANISM Qualifiers: Sepsis type: sepsis due to unspecified organism Qualified Code(s): A41.9 - Sepsis, unspecified organism (3) A-fib Code(s): I48.91 - UNSPECIFIED ATRIAL FIBRILLATION Qualifiers: Atrial fibrillation type: chronic Qualified Code(s): I48.2 - Chronic atrial fibrillation (4) Acute on chronic diastolic CHF (congestive heart failure) Code(s): I50.33 - ACUTE ON CHRONIC DIASTOLIC (CONGESTIVE) HEART FAILURE (5) Acute respiratory failure with hypoxia Code(s): J96.01 - ACUTE RESPIRATORY FAILURE WITH HYPOXIA (6) CHF (congestive heart failure) Code(s): I50.9 - HEART FAILURE, UNSPECIFIED (7) Dementia Code(s): F03.90 - UNSPECIFIED DEMENTIA WITHOUT BEHAVIORAL DISTURBANCE Qualifiers: Dementia type: Parkinson's disease Dementia behavioral disturbance: with behavioral disturbance Qualified Code(s): G20 - Parkinson's disease; F02.81 - Dementia in other diseases classified elsewhere with behavioral disturbance (8) Foot ulcer Code(s): L97.509 - NON-PRESSURE CHRONIC ULCER OTH PRT UNSP FOOT W UNSP SEVERITY (9) Parkinson disease Code(s): G20 - PARKINSON'S DISEASE (10) Pressure ulcer Code(s): L89.90 - PRESSURE ULCER OF UNSPECIFIED SITE, UNSPECIFIED STAGE Qualifiers: Pressure ulcer stage: stage II Qualified Code(s): L89.92 - Pressure ulcer of unspecified site, stage 2 (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 diff -PPI -anticoagulation DR MOJICA
[2016-09-02] MEDS ORDERED: INSULIN (NOVOLOG) ASPART 100 UNITS/ML 10ML VIAL ONE (18:13)
[2016-09-02] MEDS ORDERED: PT OWN MED DRAWER 7, Y5N ONE (18:14)
[2016-09-02] MEDS: CHLORHEXIDINE GLUCONATE 4% CLEANSER FOR DECOLONIZATION TP SCH (21:52)
[2016-09-03] MEDS: VANCOMYCIN 250 MG/5 ML ORAL SOLUTION PO SCH ×5 (00:18→23:00)
[2016-09-03] MEDS: PIPERACILLIN/TAZOB 3.375 GM 50 ML IVPB SCH ×4 (04:32→21:00)
[2016-09-03] MEDS: FUROSEMIDE 40 MG TABLET (FP) PO SCH ×2 (06:19→14:30)
--- NOTE | 2016-09-03 07:52 | PN ---
Progress Note, Physician - Current Medication List Current Medications: Active Medications Acetaminophen (Tylenol -) 650 mg PO Q6H PRN PRN Reason: FEVER OR PAIN Carbidopa/Levodopa (Sinemet 25/100 -) 1 each PO BID [facility] Last Admin: 09/02/16 21:52 Dose: 1 each Chlorhexidine Gluconate (Hibiclens For Decolonization -) 1 applic TP HS [facility] Last Admin: 09/02/16 21:52 Dose: Not Given Collagenase (Santyl -) 1 applic TP DAILY [facility] Last Admin: 09/02/16 10:14 Dose: 1 applic Furosemide (Lasix -) 40 mg PO BID@0600,1400 [facility] Last Admin: 09/03/16 06:19 Dose: 40 mg Vancomycin HCl (Vancomycin (Pre-Docked)) 250 mls @ 166.667 mls/hr IVPB BID [facility] Last Admin: 09/02/16 21:51 Dose: 166.667 mls/hr Piperacillin Sod/Tazobactam Sod (Zosyn 3.375gm Ivpb (Pre-Docked)) 50 mls @ 100 mls/hr IVPB Q6H-IV [facility] PRN Reason: Protocol Last Admin: 09/03/16 04:32 Dose: 100 mls/hr Mupirocin (Bactroban Ointment (For Decolonization) -) 1 applic NS BID [facility] Stop: 09/04/16 09:59 Last Admin: 09/02/16 21:52 Dose: Not Given Potassium Chloride (Kcl Oral Solution -) 40 meq PO DAILY [facility] Last Admin: 09/02/16 10:14 Dose: 40 meq Ranitidine HCl (Zantac Oral Solution -) 150 mg PO DAILY [facility] Last Admin: 09/02/16 10:13 Dose: 150 mg Scopolamine HBr (Transderm-Scop -) 1 patch TD Q72H [facility] Last Admin: 09/02/16 03:51 Dose: 1 patch Sodium Chloride (Normal Saline -) 1,000 ml IV Q20M PRN PRN Reason: MAP<65mm Hg OR SBP <90 Vancomycin HCl (Vancomycin Oral Solution) 125 mg PO Q6HPO [facility] Last Admin: 09/03/16 06:20 Dose: 125 mg - Objective Vital Signs: Vital Signs Temperature 98.1 F 09/03/16 06:00 Pulse Rate 63 09/03/16 06:00 Respiratory Rate 12 09/03/16 06:30 Blood Pressure 101/61 09/03/16 06:00 O2 Sat by Pulse Oximetry (%) 99 09/02/16 21:00 Cardiovascular: Yes: S1, S2 Respiratory: Yes: Mechanically Ventilated, Rhonchi Gastrointestinal: Yes: Normal Bowel Sounds, Soft Labs: CBC, BMP 09/01/16 05:00 09/01/16 05:00 INR, PTT INR 2.34 (0.82-1.09) H 08/30/16 08:00 Problem List - Problems (1) Pneumonia Assessment/Plan: IV ABX PER ID DAY 5 ID CONSULT NOTED CULTURES Code(s): J18.9 - PNEUMONIA, UNSPECIFIED ORGANISM Qualifiers: Pneumonia type: due to unspecified organism Laterality: right Lung location: unspecified part of lung Qualified Code(s): J18.9 - Pneumonia, unspecified organism (2) Sepsis Assessment/Plan: MONITOR LABS IV ABX AWAIT CULTURES Code(s): A41.9 - SEPSIS, UNSPECIFIED ORGANISM Qualifiers: Sepsis type: sepsis due to unspecified organism Qualified Code(s): A41.9 - Sepsis, unspecified organism (3) Parkinson disease Assessment/Plan: requires total care Code(s): G20 - PARKINSON'S DISEASE (4) Respiratory failure Assessment/Plan: VENT PER PULM SAT WELL Code(s): J96.90 - RESPIRATORY FAILURE, UNSP, UNSP W HYPOXIA OR HYPERCAPNIA Qualifiers: Chronicity: acute Respiratory failure complication: hypoxia and hypercapnia Qualified Code(s): J96.01 - Acute respiratory failure with hypoxia
[2016-09-03] MEDS: RANITIDINE HCL 150 MG/10 ML UNIT-DOSE CUP PO SCH (09:55)
[2016-09-03] MEDS: POTASSIUM CHLORIDE 40 MEQ/30 ML UNIT DOSE CUP PO SCH (09:55)
[2016-09-03] MEDS: CARBIDOPA/LEVODOPA 25/100 TABLET (FP) PO SCH ×2 (09:55→21:03)
[2016-09-03] MEDS: MUPIROCIN 2% TOPICAL OINTMENT FOR DECOLONIZATION NS SCH ×2 (09:56→21:00)
[2016-09-03] MEDS: VANCOMYCIN 1 GRAM (PRE-DOCKED) 250 ML IVPB SCH ×2 (11:13→21:03)
--- NOTE | 2016-09-03 11:48 | PN ---
Progress Note (short form) - Note Progress Note: improved still with rectal tube day #5 antibiotics Vital Signs Period Temp Pulse Resp BP Sys/Limon Pulse Ox Last 24 Hr 98.1 F-98.4 F 63-73 12-18 101-138/55-72 99 cor-rrr lungs decreased bs at bases abd soft,nt ext +pedal edema CBC, BMP 09/01/16 05:00 09/01/16 05:00 Microbiology 08/29/16 20:10 Blood - Peripheral Venous Blood Culture - Preliminary NO GROWTH OBTAINED AFTER 96 HOURS, INCUBATION TO CONTINUE FOR 1 DAYS. 08/29/16 20:10 Blood - Peripheral Venous Blood Culture - Preliminary NO GROWTH OBTAINED AFTER 96 HOURS, INCUBATION TO CONTINUE FOR 1 DAYS. 09/02/16 11:20 Sputum - Endotrachea Suction/Ventilator Gram Stain - Final 08/31/16 13:00 Urine - Urine Clean Catch Urine Culture - Final NO GROWTH OBTAINED 08/30/16 07:30 Urine - Urine - Catheterized Urine Culture - Final Contaminated: Please Repeat 08/29/16 21:55 Nasopharyngeal Swab Respiratory Virus Panel - Preliminary 08/29/16 21:55 Nasopharyngeal Swab Influenza Types A,B Antigen (FAVIAN) - Final 08/29/16 21:55 Nasopharyngeal Swab - Final a/p pneumonia- RLL resolving cdiff chronic resp failure s/p treatment for osteomyelitis chf afib continue antibiotics f/u sputum culture day #5 antibiotics
--- NOTE | 2016-09-03 13:39 | PN ---
Progress Note, Physician History of Present Illness: pulmonary no change ,unresponsive on vent support ac mode - Current Medication List Current Medications: Active Medications Acetaminophen (Tylenol -) 650 mg PO Q6H PRN PRN Reason: FEVER OR PAIN Bacitracin (Bacitracin -) 1 applic TP BID [facility] Carbidopa/Levodopa (Sinemet 25/100 -) 1 each PO BID [facility] Last Admin: 09/03/16 09:55 Dose: 1 each Chlorhexidine Gluconate (Hibiclens For Decolonization -) 1 applic TP HS [facility] Last Admin: 09/02/16 21:52 Dose: Not Given Collagenase (Santyl -) 1 applic TP DAILY [facility] Last Admin: 09/02/16 10:14 Dose: 1 applic Furosemide (Lasix -) 40 mg PO BID@0600,1400 [facility] Last Admin: 09/03/16 06:19 Dose: 40 mg Vancomycin HCl (Vancomycin (Pre-Docked)) 250 mls @ 166.667 mls/hr IVPB BID [facility] Last Admin: 09/03/16 11:13 Dose: 166.667 mls/hr Piperacillin Sod/Tazobactam Sod (Zosyn 3.375gm Ivpb (Pre-Docked)) 50 mls @ 100 mls/hr IVPB Q6H-IV [facility] PRN Reason: Protocol Last Admin: 09/03/16 09:56 Dose: 100 mls/hr Mupirocin (Bactroban Ointment (For Decolonization) -) 1 applic NS BID [facility] Stop: 09/04/16 09:59 Last Admin: 09/03/16 09:56 Dose: Not Given Potassium Chloride (Kcl Oral Solution -) 40 meq PO DAILY [facility] Last Admin: 09/03/16 09:55 Dose: 40 meq Ranitidine HCl (Zantac Oral Solution -) 150 mg PO DAILY [facility] Last Admin: 09/03/16 09:55 Dose: 150 mg Scopolamine HBr (Transderm-Scop -) 1 patch TD Q72H [facility] Last Admin: 09/02/16 03:51 Dose: 1 patch Sodium Chloride (Normal Saline -) 1,000 ml IV Q20M PRN PRN Reason: MAP<65mm Hg OR SBP <90 Vancomycin HCl (Vancomycin Oral Solution) 125 mg PO Q6HPO [facility] Last Admin: 09/03/16 11:13 Dose: 125 mg - Objective Vital Signs: Vital Signs Temperature 98.4 F 09/03/16 10:00 Pulse Rate 63 09/03/16 06:00 Respiratory Rate 12 09/03/16 10:50 Blood Pressure 105/59 09/03/16 10:00 O2 Sat by Pulse Oximetry (%) 99 09/02/16 21:00 Constitutional: Yes: Well Nourished, Other (unresponsive) Eyes: Yes: WNL HENT: Yes: WNL Neck: Yes: Supple (trach) Cardiovascular: Yes: Pulse Irregular, S1, S2 Respiratory: Yes: Diminished, Rhonchi (scattered ruby rhonchi) Gastrointestinal: Yes: Normal Bowel Sounds, Soft Extremities: Yes: WNL Edema: Yes Labs: CBC, BMP Assessment/Plan Problem List - Problems (1) Pneumonia Code(s): J18.9 - PNEUMONIA, UNSPECIFIED ORGANISM Qualifiers: Pneumonia type: due to unspecified organism Laterality: right Lung location: unspecified part of lung Qualified Code(s): J18.9 - Pneumonia, unspecified organism (2) Sepsis Code(s): A41.9 - SEPSIS, UNSPECIFIED ORGANISM Qualifiers: Sepsis type: sepsis due to unspecified organism Qualified Code(s): A41.9 - Sepsis, unspecified organism (3) A-fib Code(s): I48.91 - UNSPECIFIED ATRIAL FIBRILLATION Qualifiers: Atrial fibrillation type: chronic Qualified Code(s): I48.2 - Chronic atrial fibrillation (4) Acute on chronic diastolic CHF (congestive heart failure) Code(s): I50.33 - ACUTE ON CHRONIC DIASTOLIC (CONGESTIVE) HEART FAILURE (5) Acute respiratory failure with hypoxia Code(s): J96.01 - ACUTE RESPIRATORY FAILURE WITH HYPOXIA (6) CHF (congestive heart failure) Code(s): I50.9 - HEART FAILURE, UNSPECIFIED (7) Dementia Code(s): F03.90 - UNSPECIFIED DEMENTIA WITHOUT BEHAVIORAL DISTURBANCE Qualifiers: Dementia type: Parkinson's disease Dementia behavioral disturbance: with behavioral disturbance Qualified Code(s): G20 - Parkinson's disease; F02.81 - Dementia in other diseases classified elsewhere with behavioral disturbance (8) Foot ulcer Code(s): L97.509 - NON-PRESSURE CHRONIC ULCER OTH PRT UNSP FOOT W UNSP SEVERITY (9) Parkinson disease Code(s): G20 - PARKINSON'S DISEASE (10) Pressure ulcer Code(s): L89.90 - PRESSURE ULCER OF UNSPECIFIED SITE, UNSPECIFIED STAGE Qualifiers: Pressure ulcer stage: stage II Qualified Code(s): L89.92 - Pressure ulcer of unspecified site, stage 2 (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 diff -PPI -anticoagulation DR MOJICA
[2016-09-03] MEDS: COLLAGENASE CLOSTRIDIUM HIST. 30 GRAMS TUBE TP SCH (14:29)
[2016-09-03] MEDS: BACITRACIN 30 GM TUBE TOPICAL OINTMENT TP SCH ×2 (14:30→21:00)
[2016-09-03] MEDS ORDERED: PT OWN MED DRAWER 7, Y5N ONE (20:26)
[2016-09-03] MEDS: CHLORHEXIDINE GLUCONATE 4% CLEANSER FOR DECOLONIZATION TP SCH (21:01)
[2016-09-03] MEDS: NYSTATIN 100,000 UNIT/GM TOPICAL CREAM 15 GM TUBE TP SCH (21:49)
[2016-09-04] MEDS: PIPERACILLIN/TAZOB 3.375 GM 50 ML IVPB SCH ×4 (02:21→21:45)
[2016-09-04] MEDS: FUROSEMIDE 40 MG TABLET (FP) PO SCH ×2 (06:44→15:01)
[2016-09-04] MEDS: VANCOMYCIN 250 MG/5 ML ORAL SOLUTION PO SCH ×4 (06:46→23:03)
[2016-09-04] MEDS ORDERED: PIPERACILLIN/TAZOB 3.375 GM/50 ML PRE-DOCKED IVPB ONE (09:15)
[2016-09-04] MEDS: POTASSIUM CHLORIDE 40 MEQ/30 ML UNIT DOSE CUP PO SCH (10:32)
[2016-09-04] MEDS: BACITRACIN 30 GM TUBE TOPICAL OINTMENT TP SCH ×3 (10:33→21:45)
[2016-09-04] MEDS: CARBIDOPA/LEVODOPA 25/100 TABLET (FP) PO SCH ×2 (10:33→21:46)
[2016-09-04] MEDS: RANITIDINE HCL 150 MG/10 ML UNIT-DOSE CUP PO SCH (10:33)
[2016-09-04] MEDS: NYSTATIN 100,000 UNIT/GM TOPICAL CREAM 15 GM TUBE TP SCH ×2 (11:05→21:45)
[2016-09-04] MEDS: VANCOMYCIN 1 GRAM (PRE-DOCKED) 250 ML IVPB SCH ×2 (11:06→21:46)
[2016-09-04] MEDS: COLLAGENASE CLOSTRIDIUM HIST. 30 GRAMS TUBE TP SCH (11:06)
--- NOTE | 2016-09-04 12:18 | PN ---
Progress Note, Physician History of Present Illness: Not responsive Breathing non-labored Afebrile Sputum c/s NLF BC (-) WBC improved 10K - Current Medication List Current Medications: Active Medications Acetaminophen (Tylenol -) 650 mg PO Q6H PRN PRN Reason: FEVER OR PAIN Bacitracin (Bacitracin -) 1 applic TP BID [facility] Last Admin: 09/04/16 10:33 Dose: 1 applic Carbidopa/Levodopa (Sinemet 25/100 -) 1 each PO BID [facility] Last Admin: 09/04/16 10:33 Dose: 1 each Chlorhexidine Gluconate (Hibiclens For Decolonization -) 1 applic TP HS [facility] Last Admin: 09/03/16 21:01 Dose: Not Given Collagenase (Santyl -) 1 applic TP DAILY [facility] Last Admin: 09/04/16 11:06 Dose: 1 applic Furosemide (Lasix -) 40 mg PO BID@0600,1400 [facility] Last Admin: 09/04/16 06:44 Dose: 40 mg Vancomycin HCl (Vancomycin (Pre-Docked)) 250 mls @ 166.667 mls/hr IVPB BID [facility] Last Admin: 09/04/16 11:06 Dose: 166.667 mls/hr Piperacillin Sod/Tazobactam Sod (Zosyn 3.375gm Ivpb (Pre-Docked)) 50 mls @ 100 mls/hr IVPB Q6H-IV [facility] PRN Reason: Protocol Last Admin: 09/04/16 10:32 Dose: 100 mls/hr Nystatin (Mycostatin Cream -) 1 applic TP BID [facility] Last Admin: 09/04/16 11:05 Dose: 1 applic Potassium Chloride (Kcl Oral Solution -) 40 meq PO DAILY [facility] Last Admin: 09/04/16 10:32 Dose: 40 meq Ranitidine HCl (Zantac Oral Solution -) 150 mg PO DAILY [facility] Last Admin: 09/04/16 10:33 Dose: 150 mg Scopolamine HBr (Transderm-Scop -) 1 patch TD Q72H [facility] Last Admin: 09/02/16 03:51 Dose: 1 patch Sodium Chloride (Normal Saline -) 1,000 ml IV Q20M PRN PRN Reason: MAP<65mm Hg OR SBP <90 Vancomycin HCl (Vancomycin Oral Solution) 125 mg PO Q6HPO [facility] Last Admin: 09/04/16 11:07 Dose: 125 mg - Objective Vital Signs: Vital Signs Temperature 97.7 F 09/04/16 10:00 Pulse Rate 84 09/04/16 10:00 Respiratory Rate 18 09/04/16 10:00 Blood Pressure 149/89 09/04/16 10:00 O2 Sat by Pulse Oximetry (%) 97 09/03/16 23:22 Constitutional: Yes: No Distress, Obese Cardiovascular: Yes: Regular Rate and Rhythm, S1, S2 Respiratory: Yes: Diminished Gastrointestinal: Yes: Normal Bowel Sounds, Soft, Abdomen, Obese. No: Tenderness Edema: Yes Labs: CBC, BMP 09/01/16 05:00 09/01/16 05:00 INR, PTT INR 2.34 (0.82-1.09) H 08/30/16 08:00 Assessment/Plan RLL pneumonia Chronic respiratory failure C difficile colitis S/P tx osteomyelitis L foot Day # 6 IV antibiotics Check sputum c/s
[2016-09-04] MEDS ORDERED: LOPERAMIDE HCL 1 MG/5 ML UNIT DOSE CUP GT ONE (13:10)
--- NOTE | 2016-09-04 13:47 | PN ---
Progress Note, Physician Chief Complaint: patient on day 6 iv abx for another 24 hrs. called left a message for her spoke to GI doc and he will see him - Current Medication List Current Medications: Active Medications Acetaminophen (Tylenol -) 650 mg PO Q6H PRN PRN Reason: FEVER OR PAIN Bacitracin (Bacitracin -) 1 applic TP BID [facility] Last Admin: 09/04/16 10:33 Dose: 1 applic Carbidopa/Levodopa (Sinemet 25/100 -) 1 each PO BID [facility] Last Admin: 09/04/16 10:33 Dose: 1 each Chlorhexidine Gluconate (Hibiclens For Decolonization -) 1 applic TP HS [facility] Last Admin: 09/03/16 21:01 Dose: Not Given Collagenase (Santyl -) 1 applic TP DAILY [facility] Last Admin: 09/04/16 11:06 Dose: 1 applic Furosemide (Lasix -) 40 mg PO BID@0600,1400 [facility] Last Admin: 09/04/16 06:44 Dose: 40 mg Vancomycin HCl (Vancomycin (Pre-Docked)) 250 mls @ 166.667 mls/hr IVPB BID [facility] Last Admin: 09/04/16 11:06 Dose: 166.667 mls/hr Piperacillin Sod/Tazobactam Sod (Zosyn 3.375gm Ivpb (Pre-Docked)) 50 mls @ 100 mls/hr IVPB Q6H-IV [facility] PRN Reason: Protocol Last Admin: 09/04/16 10:32 Dose: 100 mls/hr Nystatin (Mycostatin Cream -) 1 applic TP BID [facility] Last Admin: 09/04/16 11:05 Dose: 1 applic Potassium Chloride (Kcl Oral Solution -) 40 meq PO DAILY [facility] Last Admin: 09/04/16 10:32 Dose: 40 meq Ranitidine HCl (Zantac Oral Solution -) 150 mg PO DAILY [facility] Last Admin: 09/04/16 10:33 Dose: 150 mg Scopolamine HBr (Transderm-Scop -) 1 patch TD Q72H [facility] Last Admin: 09/02/16 03:51 Dose: 1 patch Sodium Chloride (Normal Saline -) 1,000 ml IV Q20M PRN PRN Reason: MAP<65mm Hg OR SBP <90 Vancomycin HCl (Vancomycin Oral Solution) 125 mg PO Q6HPO [facility] Last Admin: 09/04/16 11:07 Dose: 125 mg - Objective Vital Signs: Vital Signs Temperature 97.7 F 09/04/16 10:00 Pulse Rate 84 09/04/16 12:20 Respiratory Rate 13 09/04/16 10:35 Blood Pressure 149/89 09/04/16 10:00 O2 Sat by Pulse Oximetry (%) 97 09/04/16 12:20 Constitutional: Yes: Calm Neck: Yes: Other (trach) Cardiovascular: Yes: Regular Rate and Rhythm, S1, S2 Respiratory: Yes: Mechanically Ventilated Gastrointestinal: Yes: Normal Bowel Sounds, Soft, Other (g tube rectal tube) Edema: Yes Neurological: Yes: Other (unresponsive) Labs: CBC, BMP 09/01/16 05:00 09/01/16 05:00 INR, PTT INR 2.34 (0.82-1.09) H 08/30/16 08:00 Problem List - Problems (1) Pneumonia Assessment/Plan: day t6 of abx last day tmw for abx Code(s): J18.9 - PNEUMONIA, UNSPECIFIED ORGANISM Qualifiers: Pneumonia type: due to unspecified organism Laterality: right Lung location: unspecified part of lung Qualified Code(s): J18.9 - Pneumonia, unspecified organism (2) Chronic respiratory failure Assessment/Plan: vent dependant Code(s): J96.10 - CHRONIC RESPIRATORY FAILURE, UNSP W HYPOXIA OR HYPERCAPNIA Qualifiers: Respiratory failure complication: hypoxia Qualified Code(s): J96.11 - Chronic respiratory failure with hypoxia (3) Diarrhea Assessment/Plan: gi to see patient on g tube vancomycin for 10 day course Code(s): R19.7 - DIARRHEA, UNSPECIFIED (4) Ventilator dependent Assessment/Plan: on vent bronchodilaotr Code(s): Z99.11 - DEPENDENCE ON RESPIRATOR [VENTILATOR] STATUS (5) Foot ulcer Assessment/Plan: left foot collagenase Code(s): L97.509 - NON-PRESSURE CHRONIC ULCER OTH PRT UNSP FOOT W UNSP SEVERITY Qualifiers: Laterality: left
--- NOTE | 2016-09-04 14:20 | CONS ---
DATE OF CONSULTATION: DATE OF DICTATION: 09/04/2016 REQUESTING PHYSICIAN: Ronal Jenkins MD The patient is an 81-year-old male admitted from [facility] for evaluation of fevers. He was evaluated by Infectious Disease. They suspected his fever to be secondary to pneumonia. He has been on Zosyn. He was also recently treated for osteomyelitis. I have been asked to evaluate for diarrhea. He was diagnosed with C. difficile. I called over to [facility], I spoke to Dr. Becerra. She tells me that on August 19, 2016, a stool specimen sent for C. difficile was toxin positive for both A and B. He was started on p.o. vancomycin August 20. They repeated a stool C. difficile study August 25 and she told me that it was toxin negative. He has been on p.o. vancomycin since that time via his G-tube. He does have loose bowel movements. I was asked to evaluate him in the past for this in July of 2016. Of note, at that time his C. difficile study was negative. I felt that given his overall condition, significant medical regimen, medications would have to be considered as possible culprits in his chronic intermittent loose bowel movements. I advised that culprits, upon review of his home medication list, would include oral iron supplementation with ferrous sulfate, b.i.d. Zantac, Aricept, daily potassium supplementation. He was advised the medication elimination should be considered, with reducing ranitidine to once a day being used for GI prophylaxis, and also choice of tube feedings will need to be reviewed and elemental formula could be considered to see of that helped alleviate his loose bowel movements. Furthermore, he has been on frequent antibiotics, which could also be contributing to his loose bowel movements as well, as well as his recent C. difficile associated diarrhea. Most recently he underwent upper endoscopy July 16, 2015, with PEG placement. This was performed by Dr. Calin Jasso, and revealed a medium size NG tube ulcer found in the distal esophagus. Small gastric polyps were also found in the gastric fundus and gastric body and the duodenum appeared normal. Prior to this, he had a colonoscopy performed by Dr. Jasso in March of 2012. This was for evaluation of rectal bleeding. It revealed a pedunculated 2-cm polyp in the sigmoid colon and what he felt was ischemic colitis in the sigmoid colon as well, mild diverticulosis in the left colon, and minimally enlarged hemorrhoids. There has been no overt rectal bleeding reported. He has had a rectal tube in place for about 2 weeks. This is due to the fact that he has a sacral decubitus. Past medical history includes Parkinson disease, paroxysmal atrial fibrillation, hyperlipidemia, depression, right lower extremity DVT, dysphagia leading to bilateral aspiration pneumonia in the past, history of cellulitis of the lower extremities, osteomyelitis of the lower extremity, excision of skin cancer from his left ear, left hip fracture ORIF, right inguinal hernia repair, history of colon polyps, PEG placement July of 2015, and he has chronic respiratory failure and he is ventilator dependent. SOCIAL HISTORY: He is . 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 He quit smoking 40 years ago. No history of alcohol abuse. FAMILY HISTORY: Significant for skin cancer on his paternal side. There is no reported history of GI malignancies. He has allergies reported to LATEX. Medications prior to his admission include ferrous sulfate via NG tube, Florinef, scopolamine patch, acetaminophen as needed, vitamin C, carbidopa/levodopa, albuterol, Lopressor, multivitamin, Zantac 150 mg b.i.d., Lasix, Bacid, Remeron, donepezil, Coumadin, potassium chloride. REVIEW OF SYSTEMS: Patient is nonverbal. There has been no reported vomiting. There has been no reported melena or rectal bleeding. Review of systems limited, given that the patient is nonverbal. PHYSICAL EXAMINATION: General: Patient is found lying in his bed. He appeared to be in no apparent distress. Vital Signs: He is afebrile. His pulse is 84. His blood pressure was 149/89. Sclerae: Anicteric. Neck: Supple. Heart: Regular rate and rhythm. No murmurs were noted. Lungs: Revealed decreased breath sounds at the bases bilaterally. Patient, however, gave a poor inspiratory effort. Abdomen: He has a balloon replacement G-tube in the left upper quadrant. PEG site appeared to be clean, dry and intact. There is no erythema surrounding the PEG tube and no fluctuance at the site. He did have normoactive bowel sounds. His abdomen was nondistended. No hepatosplenomegaly was appreciated. No overt masses were palpated. No grimacing upon palpation. Extremities: 2+ lower extremity edema with chronic stasis changes. He also had a dressing on his left foot. Digital Rectal Exam: Deferred as the patient has a rectal tube in place. Laboratory evaluation revealed white blood count 10.1. On admission, white blood count was 24.6 with a hemoglobin of 11.3, hematocrit 33.6, platelets of 262, INR 2.34. Sodium 143, potassium 3.9, chloride 103, bicarbonate of 34, with a BUN of 15, creatinine 0.6, AST of 26, ALT of 19, alkaline phosphatase of 81, total bilirubin 0.3, albumin of 2.4. Of note, his liver chemistries were from September 01, as was his CBC. The has been no repeat blood work since that time. Urinalysis on admission revealed 3+ leukocyte esterase, 4 RBCs, 119 WBCs, moderate bacteria. He had a Gram stain from the sputum that is pending. IMPRESSION: An 81-year-old male with chronic diarrhea, however, recently diagnosed with chronic loose bowel movements, however, recently diagnosed with Clostridium difficile associated diarrhea. Per Dr. Becerra from [facility], his repeat stool study August 25 was negative for C. difficile toxin and he has been on p.o. vancomycin for approximately 2 weeks now. I have spoken with Dr. Lavon Kunz, Infectious Disease, who plans of discontinuing antibiotics tomorrow. This may likely help with his loose bowel movements. I advised continuing the p.o. vancomycin for about a week after his antibiotics have been discontinued and then observing clinically. Also consideration should be made for medication elimination as feasible both while admitted and as an outpatient to help with his history of chronic loose bowel movements. Consider change to an elemental formula if not already done and I have dosed Imodium 2 mg today. Other recommendations pending the patient's clinical course. I thank you for this consultative opportunity. MARIS STEWART DO [id number]
--- NOTE | 2016-09-04 14:48 | PN ---
Progress Note (short form) - Note Progress Note: Vascular Surgery Pt seen and examined. Well known from [facility]. Left 5th metatarsal ulcer. Looks clean, pink, down to bone. Santyl to wound daily. Gutierrez Rosario DO
--- NOTE | 2016-09-04 16:42 | PN ---
Progress Note (short form) - Note Progress Note: PULMONARY PATIENT SEEN AND EXAMINED ON [facility] NO SIGNIFICANT CHANGE IN EXAM CONTINUE SAME VENT SETTINGS (1) Pneumonia Code(s): J18.9 - PNEUMONIA, UNSPECIFIED ORGANISM Qualifiers: Pneumonia type: due to unspecified organism Laterality: right Lung location: unspecified part of lung Qualified Code(s): J18.9 - Pneumonia, unspecified organism (2) Sepsis Code(s): A41.9 - SEPSIS, UNSPECIFIED ORGANISM Qualifiers: Sepsis type: sepsis due to unspecified organism Qualified Code(s): A41.9 - Sepsis, unspecified organism (3) A-fib Code(s): I48.91 - UNSPECIFIED ATRIAL FIBRILLATION Qualifiers: Atrial fibrillation type: chronic Qualified Code(s): I48.2 - Chronic atrial fibrillation (4) Acute on chronic diastolic CHF (congestive heart failure) Code(s): I50.33 - ACUTE ON CHRONIC DIASTOLIC (CONGESTIVE) HEART FAILURE (5) Acute respiratory failure with hypoxia Code(s): J96.01 - ACUTE RESPIRATORY FAILURE WITH HYPOXIA (6) CHF (congestive heart failure) Code(s): I50.9 - HEART FAILURE, UNSPECIFIED (7) Dementia Code(s): F03.90 - UNSPECIFIED DEMENTIA WITHOUT BEHAVIORAL DISTURBANCE Qualifiers: Dementia type: Parkinson's disease Dementia behavioral disturbance: with behavioral disturbance Qualified Code(s): G20 - Parkinson's disease; F02.81 - Dementia in other diseases classified elsewhere with behavioral disturbance (8) Foot ulcer Code(s): L97.509 - NON-PRESSURE CHRONIC ULCER OTH PRT UNSP FOOT W UNSP SEVERITY (9) Parkinson disease Code(s): G20 - PARKINSON'S DISEASE (10) Pressure ulcer Code(s): L89.90 - PRESSURE ULCER OF UNSPECIFIED SITE, UNSPECIFIED STAGE Qualifiers: Pressure ulcer stage: stage II Qualified Code(s): L89.92 - Pressure ulcer of unspecified site, stage 2 (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 diff -PPI -anticoagulation Renaldo ROMANO MD
[2016-09-04] MEDS ORDERED: PT OWN MED DRAWER 7, Y5N ONE (21:05)
[2016-09-04] MEDS: CHLORHEXIDINE GLUCONATE 4% CLEANSER FOR DECOLONIZATION TP SCH (21:46)
[2016-09-05] MEDS: PIPERACILLIN/TAZOB 3.375 GM 50 ML IVPB SCH ×2 (03:38→09:48)
[2016-09-05] MEDS: FUROSEMIDE 40 MG TABLET (FP) PO SCH ×2 (06:26→14:08)
[2016-09-05] MEDS: VANCOMYCIN 250 MG/5 ML ORAL SOLUTION PO SCH ×2 (06:27→12:38)
[2016-09-05] MEDS: SCOPOLAMINE HYDROBROMIDE 1 PATCH PATCH.TD72 TD SCH (06:30)
[2016-09-05 07:32] LABS: BASOPHIL 0.5 % (0-2.0); EOSINOPHIL 7.6 % (0-4.5); MCH 30.7 pg (25.7-33.7); MCHC 33.1 g/dl (32.0-35.9); MEAN CELL VOLUME 92.8 fl (80-96); MEAN PLT VOLUME 8.8 fl (7.5-11.1); NEUTROPHILS 54.3 % (42.8-82.8); PLATELET COUNT 227 K/MM3 (134-434); RDW 14.4 % (11.9-15.9); WHITE BLOOD COUNT 10.3 K/mm3 (4.0-10.0)
[2016-09-05] MEDS: BACITRACIN 30 GM TUBE TOPICAL OINTMENT TP SCH ×2 (09:49)
[2016-09-05] MEDS: POTASSIUM CHLORIDE 40 MEQ/30 ML UNIT DOSE CUP PO SCH (09:49)
[2016-09-05] MEDS: NYSTATIN 100,000 UNIT/GM TOPICAL CREAM 15 GM TUBE TP SCH (09:49)
[2016-09-05] MEDS: COLLAGENASE CLOSTRIDIUM HIST. 30 GRAMS TUBE TP SCH (09:49)
[2016-09-05] MEDS: RANITIDINE HCL 150 MG/10 ML UNIT-DOSE CUP PO SCH (09:49)
[2016-09-05] MEDS: VANCOMYCIN 1 GRAM (PRE-DOCKED) 250 ML IVPB SCH (09:49)
[2016-09-05] MEDS: CARBIDOPA/LEVODOPA 25/100 TABLET (FP) PO SCH (09:49)
[2016-09-05] MEDS ORDERED: LACTOBACILLUS ACIDOPHILUS 1 EACH TAB (FP) GT SCH (10:00)
--- NOTE | 2016-09-05 10:00 | DS ---
Physical Examination Vital Signs: Vital Signs Temperature 98.4 F 09/05/16 06:00 Pulse Rate 68 09/05/16 06:00 Respiratory Rate 13 09/05/16 06:28 Blood Pressure 121/66 09/05/16 06:00 O2 Sat by Pulse Oximetry (%) 99 09/04/16 23:17 Constitutional: Yes: Calm, Other (non verbal) Neck: Yes: Other (trach) Cardiovascular: Yes: S1, S2 Respiratory: Yes: Mechanically Ventilated Gastrointestinal: Yes: Soft, Other (g tube) ...Rectal Exam: Yes: Other (rectal tube liquid stool) Edema: Yes Neurological: Yes: Other (non verbal) Labs: CBC, BMP 09/05/16 06:45 09/01/16 05:00 Discharge Summary Reason For Visit: PNEUMONIA Current Active Problems Pneumonia (Acute) Sepsis (Acute) Hospital Course: The patient is an 81 year old male, with a significant past medical history of hyperlipidemia, atrial fibrillation, COPD, chronic respiratory failure s/p tracheostomy, coronary artery disease, CVA and dementia, who presents to the emergency department via EMS from [facility] with fever. [facility] staff report that that patient had a fever of up to 100.4 earlier today. He presents to the ED for further evaluation. HPI is limited due to patients baseline clinical condition. Allergies: Latex, NKDA. Past Surgical History: Right Inguinal Hernia, Left Knee Replacement, Pins in Left Hip Social History: Former smoker (quit 40 years ago). No alcohol or drug use reported. PCP: Dr. Callaway found to have leukocytosis- RLL pna got 7 days of iv abx c diff to continue po vancmycin for another 11 days to complete the course afib BB and coumadin foot wound clean pink to continue santyl Condition: Guarded - Instructions Diet, Activity, Other Instructions: vancomycin via g tube continue til september 13 for c diff INR check MWF Referrals: Jerzy Callaway MD [Primary Care Provider] - Disposition: [facility] - Home Medications Comprehensive Discharge Medication List: Ambulatory Orders Ferrous Sulfate 325 mg GT HS 02/27/15 Fludrocortisone Acetate [Florinef -] 0.1 mg GT BID 02/28/15 Acetaminophen [Tylenol .Regular Strength -] 650 mg NR Q4H PRN #0 tablet Scopolamine Hydrobromide [Transderm-Scop -] 1 patch TD Q72H patch.td72 Albuterol 2.5/Ipratropium 0.5 [Duoneb -] 1 neb IH QID 03/20/16 Ascorbic Acid [Vitamin C -] 500 mg GT DAILY 03/20/16 Carbidopa/Levodopa [Carbidopa-Levodopa 25-100 Tab] 1 each GT BID 03/20/16 Metoprolol Tartrate [Lopressor -] 12.5 mg GT TID tablet 03/27/16 Multivitamins [Multivit ([facility] Formulary)] 1 tab GT DAILY 04/30/16 Ranitidine [Zantac -] 150 mg GT BID 04/30/16 Furosemide Oral Solution [Lasix Oral Solution -] 40 mg GT BID@0600,1400 ud[facility] 01/18 Naph,Mb-Db/K pH,Mbdb [PHOS-NaK PACKET -] 1 packet PEG TID pow 05/12/16 Aa/[place]/Arg/C/Zn/Cu [Lps Critical Care Liquid] 30 ml PO DAILY Donepezil HCl [Aricept -] 10 mg PO DAILY 07/09/16 Lactobacillus Acidophilus [Bacid -] 1 tab PO BID 07/09/16 Mirtazapine [Remeron Soltab -] 15 mg PO DAILY 07/09/16 Amino Acids/Protein Hydrolys [Prostat Sugar-Free Packet -] 30 ml GT BID@0800, 1730 packet 07/14/16 Collagenase Clostridium Hist. [Santyl -] 1 applic TP DAILY tube 07/14/16 Mirtazapine [Remeron -] 15 mg GT HS tablet 07/14/16 Picc Line Flush [Picc Line Flush -] 8 ml IVPUSH PRN PRN #0 ml 07/14/16 Piperacillin/Tazob 4.5 gm [Zosyn 4.5GM Ivpb (Pre-Docked)] 4.5 gm IVPB Q8H-IV # 30 bag 07/14/16 Potassium Chloride Oral Soln [KCl Oral Solution -] 40 meq PO BID cup 07/14/16 Warfarin Na [Coumadin -] 5 mg PO DAILY@1800 tablet 07/14/16
--- NOTE | 2016-09-05 10:52 | PN ---
Progress Note, Physician History of Present Illness: Not responsive No acute distress Afebrile WBC 10 Sputum c/s Acinetobacter/ Xanthomonas - Current Medication List Current Medications: Active Medications Acetaminophen (Tylenol -) 650 mg PO Q6H PRN PRN Reason: FEVER OR PAIN Bacitracin (Bacitracin -) 1 applic TP BID [facility] Last Admin: 09/05/16 09:49 Dose: 1 applic Bacitracin (Bacitracin -) 1 applic TP DAILY [facility] Last Admin: 09/05/16 09:49 Dose: 1 applic Carbidopa/Levodopa (Sinemet 25/100 -) 1 each PO BID [facility] Last Admin: 09/05/16 09:49 Dose: 1 each Chlorhexidine Gluconate (Hibiclens For Decolonization -) 1 applic TP HS [facility] Last Admin: 09/04/16 21:46 Dose: Not Given Collagenase (Santyl -) 1 applic TP DAILY [facility] Last Admin: 09/05/16 09:49 Dose: 1 applic Furosemide (Lasix -) 40 mg PO BID@0600,1400 [facility] Last Admin: 09/05/16 06:26 Dose: 40 mg Vancomycin HCl (Vancomycin (Pre-Docked)) 250 mls @ 166.667 mls/hr IVPB BID [facility] Last Admin: 09/05/16 09:49 Dose: 166.667 mls/hr Piperacillin Sod/Tazobactam Sod (Zosyn 3.375gm Ivpb (Pre-Docked)) 50 mls @ 100 mls/hr IVPB Q6H-IV [facility] PRN Reason: Protocol Last Admin: 09/05/16 09:48 Dose: 100 mls/hr Lactobacillus Acidophilus (Bacid -) 1 tab GT DAILY [facility] Last Admin: 09/05/16 09:49 Dose: 1 tab Nystatin (Mycostatin Cream -) 1 applic TP BID [facility] Last Admin: 09/05/16 09:49 Dose: 1 applic Potassium Chloride (Kcl Oral Solution -) 40 meq PO DAILY [facility] Last Admin: 09/05/16 09:49 Dose: 40 meq Ranitidine HCl (Zantac Oral Solution -) 150 mg PO DAILY [facility] Last Admin: 09/05/16 09:49 Dose: 150 mg Scopolamine HBr (Transderm-Scop -) 1 patch TD Q72H [facility] Last Admin: 09/05/16 06:30 Dose: 1 patch Sodium Chloride (Normal Saline -) 1,000 ml IV Q20M PRN PRN Reason: MAP<65mm Hg OR SBP <90 Vancomycin HCl (Vancomycin Oral Solution) 125 mg PO Q6HPO [facility] Last Admin: 09/05/16 06:27 Dose: 125 mg - Objective Vital Signs: Vital Signs Temperature 98.2 F 09/05/16 10:00 Pulse Rate 86 09/05/16 10:00 Respiratory Rate 14 09/05/16 10:00 Blood Pressure 132/71 09/05/16 10:00 O2 Sat by Pulse Oximetry (%) 99 09/05/16 09:08 Constitutional: Yes: No Distress Eyes: Yes: Conjunctiva Clear Cardiovascular: Yes: Regular Rate and Rhythm, S1, S2 Respiratory: Yes: Diminished Gastrointestinal: Yes: Normal Bowel Sounds, Soft, Abdomen, Obese. No: Tenderness Edema: Yes Edema: LUE: 2+, RUE: 2+, LLE: 2+, RLE: 2+ Labs: CBC, BMP 09/05/16 06:45 09/01/16 05:00 INR, PTT INR 2.34 (0.82-1.09) H 08/30/16 08:00 Assessment/Plan RLL pneumonia improved + sputum c/s mixed walker- colonization Chronic respiratory failure C difficile colitis S/P tx osteomyelitis L foot Day # 7 IV antibiotics D/C antibiotics, observe off No treatment for + sputum c/s
--- NOTE | 2016-09-05 12:53 | PN ---
Progress Note, Physician History of Present Illness: PULMONARY NO CHANGE UNRESPONSIVE ON VENT SUPPORT. - Current Medication List Current Medications: Active Medications Acetaminophen (Tylenol -) 650 mg PO Q6H PRN PRN Reason: FEVER OR PAIN Bacitracin (Bacitracin -) 1 applic TP BID [facility] Last Admin: 09/05/16 09:49 Dose: 1 applic Bacitracin (Bacitracin -) 1 applic TP DAILY [facility] Last Admin: 09/05/16 09:49 Dose: 1 applic Carbidopa/Levodopa (Sinemet 25/100 -) 1 each PO BID [facility] Last Admin: 09/05/16 09:49 Dose: 1 each Chlorhexidine Gluconate (Hibiclens For Decolonization -) 1 applic TP HS [facility] Last Admin: 09/04/16 21:46 Dose: Not Given Collagenase (Santyl -) 1 applic TP DAILY [facility] Last Admin: 09/05/16 09:49 Dose: 1 applic Furosemide (Lasix -) 40 mg PO BID@0600,1400 [facility] Last Admin: 09/05/16 06:26 Dose: 40 mg Lactobacillus Acidophilus (Bacid -) 1 tab GT DAILY [facility] Last Admin: 09/05/16 09:49 Dose: 1 tab Nystatin (Mycostatin Cream -) 1 applic TP BID [facility] Last Admin: 09/05/16 09:49 Dose: 1 applic Potassium Chloride (Kcl Oral Solution -) 40 meq PO DAILY [facility] Last Admin: 09/05/16 09:49 Dose: 40 meq Ranitidine HCl (Zantac Oral Solution -) 150 mg PO DAILY [facility] Last Admin: 09/05/16 09:49 Dose: 150 mg Scopolamine HBr (Transderm-Scop -) 1 patch TD Q72H [facility] Last Admin: 09/05/16 06:30 Dose: 1 patch Sodium Chloride (Normal Saline -) 1,000 ml IV Q20M PRN PRN Reason: MAP<65mm Hg OR SBP <90 Vancomycin HCl (Vancomycin Oral Solution) 125 mg PO Q6HPO [facility] Last Admin: 09/05/16 12:38 Dose: 125 mg - Objective Vital Signs: Vital Signs Temperature 98.2 F 09/05/16 10:00 Pulse Rate 86 09/05/16 10:00 Respiratory Rate 12 09/05/16 10:17 Blood Pressure 132/71 09/05/16 10:00 O2 Sat by Pulse Oximetry (%) 99 09/05/16 09:08 Constitutional: Yes: Obese, Other (UNRESPONSIVE) Eyes: Yes: WNL HENT: Yes: WNL Neck: Yes: Supple (TRACH) Cardiovascular: Yes: Pulse Irregular, S1, S2 Respiratory: Yes: Rhonchi (FEW RHONCHI) Gastrointestinal: Yes: Normal Bowel Sounds, Soft Extremities: Yes: WNL Edema: Yes Labs: CBC, BMP 09/05/16 06:45 09/01/16 05:00 Assessment/Plan Problem List - Problems (1) Pneumonia Code(s): J18.9 - PNEUMONIA, UNSPECIFIED ORGANISM Qualifiers: Pneumonia type: due to unspecified organism Laterality: right Lung location: unspecified part of lung Qualified Code(s): J18.9 - Pneumonia, unspecified organism (2) Sepsis Code(s): A41.9 - SEPSIS, UNSPECIFIED ORGANISM Qualifiers: Sepsis type: sepsis due to unspecified organism Qualified Code(s): A41.9 - Sepsis, unspecified organism (3) A-fib Code(s): I48.91 - UNSPECIFIED ATRIAL FIBRILLATION Qualifiers: Atrial fibrillation type: chronic Qualified Code(s): I48.2 - Chronic atrial fibrillation (4) Acute on chronic diastolic CHF (congestive heart failure) Code(s): I50.33 - ACUTE ON CHRONIC DIASTOLIC (CONGESTIVE) HEART FAILURE (5) Acute respiratory failure with hypoxia Code(s): J96.01 - ACUTE RESPIRATORY FAILURE WITH HYPOXIA (6) CHF (congestive heart failure) Code(s): I50.9 - HEART FAILURE, UNSPECIFIED (7) Dementia Code(s): F03.90 - UNSPECIFIED DEMENTIA WITHOUT BEHAVIORAL DISTURBANCE Qualifiers: Dementia type: Parkinson's disease Dementia behavioral disturbance: with behavioral disturbance Qualified Code(s): G20 - Parkinson's disease; F02.81 - Dementia in other diseases classified elsewhere with behavioral disturbance (8) Foot ulcer Code(s): L97.509 - NON-PRESSURE CHRONIC ULCER OTH PRT UNSP FOOT W UNSP SEVERITY (9) Parkinson disease Code(s): G20 - PARKINSON'S DISEASE (10) Pressure ulcer Code(s): L89.90 - PRESSURE ULCER OF UNSPECIFIED SITE, UNSPECIFIED STAGE Qualifiers: Pressure ulcer stage: stage II Qualified Code(s): L89.92 - Pressure ulcer of unspecified site, stage 2 (11) Ventilator dependent Code(s): Z99.11 - DEPENDENCE ON RESPIRATOR [VENTILATOR] STATUS PLAN - vent support on ac, no weaning potential at this time - scopolamine -collagenase -cont tube feeds - vanco po for c. diff -PPI -anticoagulation - chest x-ray am DR MOJICA
[2016-09-05] MEDS ORDERED: PT OWN MED DRAWER 7, Y5N ONE (14:26)
[2016-09-05 15:18] VITALS: BP 117/48; PULSE 72; TEMP 98.9
== END 2016-09-05 17:37 | DRG 870 ==
LOC: SUPCPDRO 19:21 → JER 19:21 → JERBED 22:14 → JICU 08-30 00:53 → J5S 09-01 09:04
PROVIDERS: ADMIT Family Medicine; ATTEND Family Medicine
PROC: 5A1955Z Respiratory Ventilation, Greater than 96 Consecutive Hours (ICD-10-PCS; principal; 2016-08-30)
DX: A41.9 Sepsis, unspecified organism (principal); J18.9 Pneumonia, unspecified organism; I50.33 Acute on chronic diastolic (congestive) heart failure; J96.21 Acute and chronic respiratory failure with hypoxia; F02.81 Dementia in other diseases classified elsewhere, unspecified severity, with behavioral disturbance; I69.359 Hemiplegia and hemiparesis following cerebral infarction affecting unspecified side; Z99.11 Dependence on respirator [ventilator] status; A04.7 Enterocolitis due to Clostridium difficile; I48.0 Paroxysmal atrial fibrillation; Z79.01 Long term (current) use of anticoagulants; G20 Parkinson's disease; Z93.0 Tracheostomy status; L89.322 Pressure ulcer of left buttock, stage 2; L89.311 Pressure ulcer of right buttock, stage 1; N40.0 Benign prostatic hyperplasia without lower urinary tract symptoms; Z66 Do not resuscitate; I25.10 Atherosclerotic heart disease of native coronary artery without angina pectoris; L97.529 Non-pressure chronic ulcer of other part of left foot with unspecified severity
CPT/HCPCS: 36415; 71010-TC; 80048; 80053; 81003; 81015; 82550; 83605; 83735; 84100; 84484; 85025; 85027; 85610; 85730; 86850; 86900; 86901; 87040; 87070; 87086; 87186; 87205; 87254; 87804; 93005; 93010; 94002; 99283-25; G0480

== ENCOUNTER 2017-07-25 10:02 | Inpatient (IN) | payer OTHER, BC ==
[2017-07-25 10:39] VITALS: BMI 36.9
--- NOTE | 2017-07-25 11:18 | PDOC ---
History of Present Illness <Greg Oconnell - Last Filed: 07/25/17 13:40> - General History Source: Patient Exam Limitations: No Limitations - History of Present Illness Initial Comments: 07/25/17 14:28 Patient is a 82 year old male, from [facility], with a significant past medical history of hyperlipidemia, atrial fibrillation, COPD, chronic respiratory failure s/p tracheostomy, coronary artery disease, CVA and dementia, who was brought by EMS to the ED due to Peg tube obstruction/possible illeus. Per family, the pt has chronic diarrhea, and has had CDIFF in the past, and was started abx which tendes to worsenin his diarrhea. Over the past month, he develpe da sacral decubitus ulcer, and due to his chornic dirrhea had a rectal tube placed. He also had a recent PEG that dislodged, when laura replaced it and got a abd xray, it showed obstruction/illeus. No known history of vomiting, abd not distended. History provided from family, EMS and [place] records as pt unable to give us any history. Allergies: Latex Social history: Lives at [facility]. Former smoker (quit 40 years ago) . No alcohol. No illicit drugs. Surgical history: Right Inguinal Hernia, Left Knee Replacement, Pins in Left Hip PMD: Dr. Callaway. <Yonas Granados - Last Filed: 07/25/17 14:28> - General Chief Complaint: Revisit, Lab Variance Stated Complaint: ABDOMINAL PAIN Time Seen by Provider: 07/25/17 10:17 Past History - Past Medical History Anemia: No Asthma: No Cancer: No Cardiac Disorders: Yes (AFib) CVA: Yes (right sided weakness) COPD: Yes CHF: No Dementia: Yes Diabetes: No GI Disorders: Yes (GI bleed) Disorders: Yes (UTI, hematuria) HTN: No Hypercholesterolemia: Yes Liver Disease: No Seizures: No Thyroid Disease: No - Surgical History Abdominal Surgery: Yes (RIGHT INGUINAL HERNIA REPAIR) Appendectomy: No Cardiac Surgery: No Cholecystectomy: No Lung Surgery: No Neurologic Surgery: No Orthopedic Surgery: Yes (lt knee replacement, pins in left hip) - Immunization History Td Vaccination: Yes Immunization Up to Date: Yes - Suicide/Smoking/Psychosocial Hx Smoking Status: No Smoking History: Unknown if ever smoked Years of Tobacco Use: 0 Have you smoked in the past 12 months: No Number of Cigarettes Smoked Daily: 0 If you are a former smoker, when did you quit?: 40 years ago Cigars Per Day: 0 'Breaking Loose' booklet given: 06/15/15 Hx Alcohol Use: No Drug/Substance Use Hx: No Substance Use Type: None Hx Substance Use Treatment: No <KourtneyGreg - Last Filed: 07/25/17 13:40> <Yonas Granados - Last Filed: 07/25/17 14:28> - Past Medical History Allergies/Adverse Reactions: Allergies Allergy/AdvReac Type Severity Reaction Status Date / Time latex Allergy Verified 08/29/16 19:54 No Known Drug Allergies Allergy Verified 08/29/16 19:54 Home Medications: Ambulatory Orders Ferrous Sulfate 325 mg GT HS 02/27/15 Fludrocortisone Acetate [Florinef -] 0.1 mg GT BID 02/28/15 Acetaminophen [Tylenol .Regular Strength -] 650 mg NR Q4H PRN #0 tablet Scopolamine Hydrobromide [Transderm-Scop -] 1 patch TD Q72H patch.td72 Albuterol 2.5/Ipratropium 0.5 [Duoneb -] 1 neb IH QID 03/20/16 Ascorbic Acid [Vitamin C -] 500 mg GT DAILY 03/20/16 Carbidopa/Levodopa [Carbidopa-Levodopa 25-100 Tab] 1 each GT BID 03/20/16 Multivitamins [Multivit ([facility])] 1 tab GT DAILY 04/30/16 Furosemide Oral Solution [Lasix Oral Solution -] 40 mg GT BID@0600,1400 udc 01/18 Aa/[place]/Arg/C/Zn/Cu [Lps Critical Care Liquid] 30 ml PO DAILY Donepezil HCl [Aricept -] 10 mg PO DAILY 07/09/16 Lactobacillus Acidophilus [Bacid -] 1 tab PO BID 07/09/16 Amino Acids/Protein Hydrolys [Prostat Sugar-Free Packet -] 30 ml GT BID@0800, 1730 packet 07/14/16 Collagenase Clostridium Hist. [Santyl -] 1 applic TP DAILY tube 07/14/16 Warfarin Na [Coumadin -] 5 mg PO DAILY@1800 tablet 07/14/16 Acetaminophen [Tylenol .Regular Strength -] 650 mg PO Q6H PRN #0 tablet Bacitracin - [Bacitracin Topical Ointment -] 1 applic TP DAILY tube 09/05/16 Carbidopa/Levodopa 25/100 [Sinemet 25/100 -] 1 each PO BID tablet 09/05/16 Chlorhexidine Gluconate [Hibiclens For Decolonization -] 1 applic TP HS bottle 09/05/16 Collagenase Clostridium Hist. [Santyl -] 1 applic TP DAILY tube 09/05/16 Furosemide [Lasix -] 40 mg PO BID@0600,1400 tablet 09/05/16 Lactobacillus Acidophilus [Bacid -] 1 tab GT DAILY tab 09/05/16 Mupirocin Ointment [Bactroban Ointment (For Decolonization) -] 1 applic NS BID applic 09/05/16 Nystatin Cream [Mycostatin Cream -] 1 applic TP BID applic 09/05/16 Potassium Chloride Oral Soln [KCl Oral Solution -] 40 meq PO DAILY cup Ranitidine Oral Solution [Zantac Oral Solution -] 150 mg PO DAILY cup 09/05/16 Scopolamine Hydrobromide [Transderm-Scop -] 1 patch TD Q72H patch.td72 Vancomycin Oral Solution 125 mg PO Q6HPO ml 09/05/16 Review of Systems - Review of Systems Able to Perform ROS?: Yes Comments:: 07/25/17 14:28 Unable to obtain due to mental status All Other Systems: Reviewed and Negative <Yonas Granados - Last Filed: 07/25/17 14:28> *Physical Exam - Vital Signs Last Vital Signs Temp Pulse Resp BP Pulse Ox 99.4 F 98 H 18 123/73 99 07/25/17 10:23 07/25/17 10:23 07/25/17 10:30 07/25/17 10:23 07/25/17 10:23 <Greg Oconnell - Last Filed: 07/25/17 13:40> - Vital Signs Last Vital Signs Temp Pulse Resp BP Pulse Ox 99.4 F 98 H 17 123/73 100 07/25/17 10:23 07/25/17 10:23 07/25/17 13:38 07/25/17 10:23 07/25/17 10:35 - Physical Exam Comments: 07/25/17 14:28 GENERAL: The patients eyes are open, nonresponsive to verbal stimulus, eyes do track me when i talk. Nontoxic - in no acute distress. HEAD: Normocephalic, atraumatic. EYES: extraocular movements intact, pupils 2mm ENT: moist mucous membranes, trach in place. NECK: Normal range of motion, No JVD LUNGS: Breath sounds equal, trach place HEART: Regular rate and rhythm, normal S1 and S2 without murmur, rub or gallop. ABDOMEN: PEG in place with some brownish mucus like discharge fro mopening, mildy erythemadous opening GASTROINTESTINAL: +Large sacral decubitus ulcer with stool. +Rectal tube leaking stool EXTREMITIES: small stage 2 decubiuts ulcer on R latearl heel, large decubitus stage 3 ulcer on L heel, neither actively infected appearing. PICC line in place. NEUROLOGICAL: unable to assess due to mental status SKIN: Warm, Dry, normal turgor, ulcers as desribed above. <Yonas Granados - Last Filed: 07/25/17 14:28> Heart Score/ECG Review - ECG Impressions Comment:: 07/25/17 12:45 Twelve-lead EKG was performed and reviewed by me. trial flutter rate of [address] changes suggestive of acute ischemia <Greg Oconnell - Last Filed: 07/25/17 13:40> ED Treatment Course - LABORATORY CBC & Chemistry Diagram: 07/25/17 11:18 07/25/17 11:18 - RADIOLOGY Radiology Studies Ordered: Category Date Time Status CHEST X-RAY PORTABLE* [RAD] Stat Radiology 07/25/17 10:25 Ordered <Greg Oconnell - Last Filed: 07/25/17 13:40> - LABORATORY CBC & Chemistry Diagram: 07/25/17 11:18 07/25/17 11:18 - ADDITIONAL ORDERS Additional order review: Laboratory Results 07/25/17 07/25/17 07/25/17 11:18 11:18 11:18 PT with INR INR PTT (Actin FS) Anticoagulation Therapy Puncture Site ABG pH ABG pCO2 at Pt Temp ABG pO2 at Pt Temp ABG HCO3 ABG O2 Sat (Measured) ABG O2 Content ABG Base Excess Matthew Test O2 Delivery Device Oxygen Flow Rate Vent Mode Vent Rate Mechanical Rate Pressure Support Vent Sodium 144 Potassium 4.1 Chloride 109 H Carbon Dioxide 27 D Anion Gap 8 BUN 42 H D Creatinine 0.7 Creat Clearance w eGFR > 60 Random Glucose 108 H Lactic Acid 1.4 Calcium 7.6 L Total Bilirubin 0.4 D AST 38 H D ALT 12 D Alkaline Phosphatase 146 H D Creatine Kinase 30 L Troponin I < 0.02 Total Protein 7.7 Albumin 1.9 L D Urine Color Urine Appearance Urine pH Ur Specific [place] Urine Protein Urine Glucose (UA) Urine Ketones Urine Blood Urine Nitrite Urine Bilirubin Urine Urobilinogen Ur Leukocyte Esterase Urine WBC (Auto) Urine RBC (Auto) Urine Mucus Blood Type O POSITIVE Antibody Screen Negative 07/25/17 07/25/17 07/25/17 11:18 11:18 10:35 PT with INR 23.70 H INR 2.10 H PTT (Actin FS) 37.8 H Anticoagulation Therapy No Result Required. Puncture Site No Result Required. ABG pH 7.47 H ABG pCO2 at Pt Temp 40.8 ABG pO2 at Pt Temp 108.0 H ABG HCO3 29.3 H ABG O2 Sat (Measured) 98.6 ABG O2 Content 12.7 L ABG Base Excess 5.6 H Matthew Test No Result Required. O2 Delivery Device No Result Required. Oxygen Flow Rate No Result Required. Vent Mode No Result Required. Vent Rate No Result Required. Mechanical Rate No Result Required. Pressure Support Vent No Result Required. Sodium Potassium Chloride Carbon Dioxide Anion Gap BUN Creatinine Creat Clearance w eGFR Random Glucose Lactic Acid Calcium Total Bilirubin AST ALT Alkaline Phosphatase Creatine Kinase Troponin I Total Protein Albumin Urine Color Yellow Urine Appearance Turbid Urine pH 7.0 D Ur Specific [place] 1.014 Urine Protein Negative Urine Glucose (UA) Negative Urine Ketones Negative Urine Blood Negative Urine Nitrite Negative Urine Bilirubin Negative Urine Urobilinogen Negative Ur Leukocyte Esterase 3+ H Urine WBC (Auto) 96 Urine RBC (Auto) None Urine Mucus Many Blood Type Antibody Screen 07/25/17 11:18 RBC 4.15 MCV 84.3 MCHC 30.3 L RDW 16.1 H D MPV 8.9 Neutrophils % 64.6 Lymphocytes % 20.8 D Monocytes % 8.8 Eosinophils % 4.7 H Basophils % 1.1 <Yonas Granados - Last Filed: 07/25/17 14:28> Medical Decision Making - Medical Decision Making 07/25/17 13:27 82-year-old gentleman from [place] a history of hyperlipidemia, CVA, A. fib, COPD, COPD status post respiratory failure with tracheostomy, CAD, in stage Parkinson' s presenting to the ED due to worsening sacral decubitus ulcer and possible ileus that was noted on abdominal x-ray after her PEG tube replacement. No reported vomiting, patient noted have a low-grade temperature. On exam the patient does have a large sacral decubitus ulcer that some stool and there is no streaking around a rectal tube. The patient's abdomen is soft nondistended nontender. Exam otherwise as documented The patient's blood work was reviewed and noted for a white count of 17. Suspect this may be coming from the patient's sacral decubitus ulcer, which will likely need debridement. Consider antibiotics however the family notes that the patient has severe diarrhea that typically worsens after using antibiotics. Will discuss with admitting doctor guarding risk benefit. The case was discussed with Dr. Fernandes who requested admission under Dr. Segura service. A portion of this note was documented by scribe services under my direction. I have reviewed the details of the note, within reason, and agree with the documentation with the following case summary and management plan written by me <Greg Oconnell - Last Filed: 07/25/17 13:40> *DC/Admit/Observation/Transfer - Discharge Dispostion Admit: Yes <Greg Oconnell - Last Filed: 07/25/17 13:40> - Attestations Scribe Attestion: 07/25/17 14:28 Documentation prepared by Yonas Granados, acting as medical services assistant for Greg Oconnell MD, MD/DO. <Yonas Granados - Last Filed: 07/25/17 14:28> Diagnosis at time of Disposition: Diarrhea Qualifiers: Diarrhea type: unspecified type Qualified Code(s): R19.7 - Diarrhea, unspecified Sacral decubitus ulcer Qualifiers: Pressure ulcer stage: stage 3 Qualified Code(s): L89.153 - Pressure ulcer of sacral region, stage 3 Sepsis Qualifiers: Sepsis type: sepsis due to unspecified organism Qualified Code(s): A41.9 - Sepsis, unspecified organism - Discharge Dispostion Condition at time of disposition: Guarded - Referrals Referrals: Jerzy Callaway MD [Primary Care Provider] - - Patient Instructions - Post Discharge Activity
[2017-07-25 12:02] LABS: URINE APPEARANCE TURBID; URINE BILIRUBIN NEGATIVE (NEGATIVE); URINE BLOOD NEGATIVE (NEGATIVE); URINE GLUCOSE (UA) NEGATIVE (NEGATIVE); URINE KETONE NEGATIVE (NEGATIVE); URINE NITRITE NEGATIVE (NEGATIVE); URINE PROTEIN NEGATIVE (NEGATIVE); URINE UROBILINOGEN NEGATIVE mg/dL (0.2-1.0)
[2017-07-25 12:20] LABS: ARTERIAL BLD GAS O2 SATURATION 98.6 % (90-98.9); ARTERIAL BLOOD GAS BASE EXCESS 5.6 meq/l (-2-2); ARTERIAL BLOOD GAS PCO2 40.8 mmHg (35-45); ARTERIAL BLOOD GAS pH 7.47 (7.35-7.45)
[2017-07-25 12:22] LABS: BASO % 1.1 % (0-2.0); EOS % 4.7 % (0-4.5); HEMATOCRIT 34.9 % (35.4-49); HEMOGLOBIN 10.6 GM/dL (11.7-16.9); LYMPH % 20.8 % (8-40); MCH 25.6 pg (25.7-33.7); MCHC 30.3 g/dl (32.0-35.9); MEAN CELL VOLUME 84.3 fl (80-96); MEAN PLT VOLUME 8.9 fl (7.5-11.1); MONO % 8.8 % (3.8-10.2); NEUT % 64.6 % (42.8-82.8); PLATELET COUNT 434 K/MM3 (134-434); RBC 4.15 M/mm3 (4.00-5.60); RDW 16.1 % (11.9-15.9); WHITE BLOOD COUNT 17.5 K/mm3 (4.0-10.0)
[2017-07-25 12:23] LABS: URINE COLOR YELLOW; URINE LEUK ESTERASE 3+ (NEGATIVE)
[2017-07-25 12:28] LABS: URINE MUCUS MANY
[2017-07-25 12:40] LABS: INR 2.1 (0.82-1.09); PROTHROMBIN TIME (PATIENT) 23.7 SEC (9.98-11.88)
[2017-07-25 12:43] LABS: ACTIVATED PTT 37.8 SECONDS (26.9-34.4)
[2017-07-25 13:02] LABS: ALBUMIN 1.9 g/dl (3.4-5.0); ANION GAP 8 (8-16); BILIRUBIN,TOTAL 0.4 mg/dL (0.2-1.0); BLOOD UREA NITROGEN 42 mg/dL (7-18); CALCIUM 7.6 mg/dL (8.5-10.1); CHLORIDE 109 mmol/L (98-107); CO2 27 mmol/L (21-32); CREATININE 0.7 mg/dL (0.7-1.3); GLUCOSE,RANDOM 108 mg/dL (74-106); POTASSIUM 4.1 mmol/L (3.5-5.1); SGOT/AST 38 U/L (15-37); SGPT/ALT 12 U/L (12-78); SODIUM 144 mmol/L (136-145); TOT PROT 7.7 g/dl (6.4-8.2)
[2017-07-25 13:05] LABS: ALK PHOS 146 U/L (45-117)
[2017-07-25] MEDS ORDERED: VANCOMYCIN 1,000 MG in DEXTROSE 5%-WATER - 250 ML IVPB ONE (13:39)
[2017-07-25] MEDS ORDERED: VANCOMYCIN 1 GRAM (PRE-DOCKED) 1,000 MG/250 ML BAG IVPB ONE (14:03)
--- NOTE | 2017-07-25 15:18 | EKG ---
Test Reason : Blood Pressure : / mmHG Vent. Rate : 099 BPM Atrial Rate : 220 BPM P-R Int : 000 ms QRS Dur : 094 ms QT Int : 322 ms P-R-T Axes : 000 020 023 degrees QTc Int : 413 ms ATRIAL FLUTTER WITH VARIABLE A-V BLOCK LOW VOLTAGE QRS ABNORMAL ECG WHEN COMPARED WITH ECG OF 29-AUG-2016 19:52, ATRIAL FLUTTER HAS REPLACED SINUS RHYTHM QT HAS SHORTENED Confirmed by Javier Cabezas ([id number]) on 07/25/2017 3:18:07 PM Referred By: Confirmed By:Javier Cabezas
[2017-07-25] MEDS ORDERED: CEFTRIAXONE 1 GM/50 ML BAG ONE (21:55)
[2017-07-25] MEDS ORDERED: ACETAMINOPHEN 325 MG TABLET (FP) PO PRN (23:37)
[2017-07-25] MEDS ORDERED: LOPERAMIDE HCL 1 MG/5 ML UNIT DOSE CUP GT PRN (23:45)
--- NOTE | 2017-07-25 23:55 | HP ---
Admitting History and Physical - Primary Care Physician PCP: Jerzy Callaway - Admission Chief Complaint: diarrhea, sepsis History of Present Illness: Patient is a 82 year old male, from [facility], with a significant past medical history of hyperlipidemia, atrial fibrillation, COPD, chronic respiratory failure s/p tracheostomy, coronary artery disease, CVA and dementia, who was brought by EMS to the ED due to Peg tube obstruction/possible illeus. Per family, the pt has chronic diarrhea, and has had CDIFF in the past, and was started abx which tendes to worsenin his diarrhea. Over the past month, he develpe da sacral decubitus ulcer, and due to his chornic dirrhea had a rectal tube placed. He also had a recent PEG that dislodged, when laura replaced it and got a abd xray, it showed obstruction/illeus. No known history of vomiting, abd not distended. History provided from family, EMS and [place] records as pt unable to give us any history. 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 Cardiovascular: Yes: AFIB, CAD, Hyperlipdemia Pulmonary: Yes: COPD Gastrointestinal: Yes: GI Bleed Renal/: Yes: BPH Heme/Onc: Yes: Other (DVT s/p Filter) Infectious Disease: Yes: Other (, aspiration pneumonia in the past) Musculoskeletal: Yes: Hemiplegia - Past Surgical History Past Surgical History: Yes: Hernia Repair (right inguinal hernia repair), Joint Replacement (pins in left hip) - Smoking History Smoking history: Unknown if ever smoked Have you smoked in the past 12 months: No Aproximately how many cigarettes per day: 0 If you are a former smoker, when did you quit?: 40 years ago - Alcohol/Substance Use Hx Alcohol Use: No - Social History ADL: Support Services (has home health aid) 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 History of Recent Travel: No Home Medications - Allergies Allergies/Adverse Reactions: Allergies Allergy/AdvReac Type Severity Reaction Status Date / Time latex Allergy Verified 07/25/17 21:51 No Known Drug Allergies Allergy Verified 07/25/17 21:51 - Home Medications Home Medications: Ambulatory Orders Albuterol 2.5/Ipratropium 0.5 [Duoneb -] 1 neb IH Q6H 09/15/16 Ascorbic Acid [Vitamin C -] 500 mg GT DAILY 03/20/16 Carbidopa/Levodopa [Carbidopa-Levodopa 25-100 Tab] 1 each GT BID 03/20/16 Aa/[place]/Arg/C/Zn/Cu [Lps Critical Care Liquid] 30 ml GT DAILY Donepezil HCl [Aricept -] 10 mg GT DAILY 07/09/16 Collagenase Clostridium Hist. [Santyl -] 1 applic TP DAILY tube 07/14/16 Bacitracin - [Bacitracin Topical Ointment -] 1 applic TP DAILY tube 09/05/16 Lactobacillus Acidophilus [Bacid -] 1 tab GT DAILY tab 09/05/16 Scopolamine Hydrobromide [Transderm-Scop -] 1 patch TD Q72H patch.td72 Acetaminophen [Tylenol .Regular Strength -] 650 mg GT ASDIR PRN 07/25/17 Albuterol 2.5/Ipratropium 0.5 [Duoneb -] 1 neb NEB Q4H 07/25/17 Calcium Carbonate/Vitamin D3 [Oyster Shell 500-Vit D3 200 Tb] 1 each GT DAILY Furosemide [Lasix -] 40 mg GT BID@0600,1400 07/25/17 Loperamide HCl [Loperamide] 2 mg GT Q6H 07/25/17 Oxycodone HCl [Roxicodone -] 5 mg GT Q6H 07/25/17 Potassium Chloride Oral Soln [KCl Oral Solution -] 40 meq GT DAILY 07/25/17 Ranitidine Oral Solution [Zantac Oral Solution -] 150 mg GT DAILY 07/25/17 Silver Sulfadiazine 1% Top Cr [Silvadene -] 1 applic TP DAILY 07/25/17 Warfarin Na [Coumadin -] 3.5 mg GT DAILY@1800 07/25/17 Zinc Sulfate [Orazinc] 220 mg GT BID 07/25/17 Review of Systems - Review of Systems Constitutional: reports: No Symptoms Eyes: reports: No Symptoms HENT: reports: No Symptoms Neck: reports: No Symptoms Cardiovascular: reports: No Symptoms Respiratory: reports: No Symptoms Gastrointestinal: reports: Other (abnormal abd xray) Genitourinary: reports: No Symptoms Breasts: reports: No Symptoms Reported Musculoskeletal: reports: No Symptoms Integumentary: reports: No Symptoms Neurological: reports: No Symptoms Endocrine: reports: No Symptoms Hematology/Lymphatic: reports: No Symptoms Psychiatric: reports: No Symptoms Physical Examination Vital Signs: Vital Signs Temperature 99.3 F 07/25/17 11:30 Pulse Rate 100 H 07/25/17 16:00 Respiratory Rate 18 07/25/17 23:28 Blood Pressure 128/75 07/25/17 16:00 O2 Sat by Pulse Oximetry (%) 100 07/25/17 16:00 Constitutional: Yes: Well Nourished, No Distress, Calm Cardiovascular: Yes: Pulse Irregular Respiratory: Yes: Mechanically Ventilated Gastrointestinal: Yes: Normal Bowel Sounds Wound/Incision: Yes: Draining Neurological: Yes: Pre-Existing Deficit Labs: CBC, BMP 07/25/17 11:18 07/25/17 11:18 Imaging - Results Chest X-ray: Report Reviewed Problem List - Problems (1) Leukocytosis Assessment/Plan: -ID consult -iv abx -monitor trend -Tylenol for fever >100.0F -UC,BC,SC,WC pending Code(s): D72.829 - ELEVATED WHITE BLOOD CELL COUNT, UNSPECIFIED (2) Chronic atrial fibrillation Assessment/Plan: -on AC -rate controlled Code(s): I48.2 - CHRONIC ATRIAL FIBRILLATION (3) Ventilator dependent Assessment/Plan: -pulmonary consult -bronchodilators Code(s): Z99.11 - DEPENDENCE ON RESPIRATOR [VENTILATOR] STATUS (4) Diarrhea Assessment/Plan: -chronic -recheck stools for acute infection -ID consult -GI consult -rectal tube Code(s): R19.7 - DIARRHEA, UNSPECIFIED Qualifiers: Diarrhea type: unspecified type Qualified Code(s): R19.7 - Diarrhea, unspecified (5) Sacral decubitus ulcer Assessment/Plan: -Vascular consult -Wound culture -IV abx Code(s): L89.159 - PRESSURE ULCER OF SACRAL REGION, UNSPECIFIED STAGE Qualifiers: Pressure ulcer stage: stage 3 Qualified Code(s): L89.153 - Pressure ulcer of sacral region, stage 3 Assessment/Plan see problem list
[2017-07-26] MEDS ORDERED: ALBUTEROL SO4 2.5/IPRATROPIUM 0.5 INH SOL 3 ML VIAL.NEB. NEB ONE (00:38)
[2017-07-26] MEDS ORDERED: oxyCODONE HCL 5 MG TABLET ONE (00:38)
[2017-07-26] MEDS: oxyCODONE HCL 5 MG TABLET GT PRN (00:51)
[2017-07-26] MEDS: ALBUTEROL SO4 2.5/IPRATROPIUM 0.5 INH SOL 3 ML VIAL.NEB. NEB SCH ×4 (01:08→17:27)
[2017-07-26] MEDS: SCOPOLAMINE HYDROBROMIDE 1 PATCH PATCH.TD72 TD SCH (01:10)
[2017-07-26] MEDS ORDERED: FUROSEMIDE 40 MG TABLET (FP) ONE (06:07)
[2017-07-26] MEDS ORDERED: BENZOIN/ALOE VERA/STORAX/TOLU 58 ML BOTTLE ONE (06:16)
[2017-07-26] MEDS: FUROSEMIDE 40 MG TABLET (FP) GT SCH ×2 (06:26→14:42)
[2017-07-26 09:12] LABS: BASO % 0.8 % (0-2.0); EOS % 0.9 % (0-4.5); HEMATOCRIT 37.3 % (35.4-49); HEMOGLOBIN 11.3 GM/dL (11.7-16.9); LYMPH % 14.1 % (8-40); MCH 25.5 pg (25.7-33.7); MCHC 30.3 g/dl (32.0-35.9); MEAN CELL VOLUME 84.2 fl (80-96); MONO % 6.6 % (3.8-10.2); NEUT % 77.6 % (42.8-82.8); PLATELET COUNT 462 K/MM3 (134-434); RBC 4.43 M/mm3 (4.00-5.60); RDW 16.4 % (11.9-15.9); WHITE BLOOD COUNT 19.3 K/mm3 (4.0-10.0)
[2017-07-26 09:35] LABS: ALBUMIN 2.1 g/dl (3.4-5.0); ANION GAP 8 (8-16); BILIRUBIN,TOTAL 0.8 mg/dL (0.2-1.0); CALCIUM 8.3 mg/dL (8.5-10.1); CHLORIDE 107 mmol/L (98-107); CO2 31 mmol/L (21-32); CREATININE 0.7 mg/dL (0.7-1.3); GLUCOSE,RANDOM 95 mg/dL (74-106); INR 2.04 (0.82-1.09); POTASSIUM 4.2 mmol/L (3.5-5.1); PROTHROMBIN TIME (PATIENT) 23.1 SEC (9.98-11.88); SGOT/AST 39 U/L (15-37); SGPT/ALT 37 U/L (12-78); SODIUM 146 mmol/L (136-145); TOT PROT 8.3 g/dl (6.4-8.2)
[2017-07-26 09:37] LABS: ALK PHOS 146 U/L (45-117); BLOOD UREA NITROGEN 35 mg/dL (7-18)
[2017-07-26] MEDS ORDERED: PATIENT'S OWN MEDICATION (NON-FORMULARY) (Aa/Hydro Coll,Whey/Arg/C/Zn/Cu [Lps Critical Car GT SCH (10:00)
[2017-07-26] MEDS: CALCIUM 500MG/VIT-D 200 UNITS COMBO TABLET (FP) GT SCH (11:51)
[2017-07-26] MEDS: LACTOBACILLUS ACIDOPHILUS 1 EACH TAB (FP) GT SCH (11:51)
[2017-07-26] MEDS: ZINC SULFATE 220 MG CAPSULE (FP) GT SCH ×2 (11:51→23:26)
[2017-07-26] MEDS: COLLAGENASE CLOSTRIDIUM HIST. 30 GRAMS TUBE TP SCH (11:52)
[2017-07-26] MEDS: POTASSIUM CHLORIDE ORAL LIQUID 20 MEQ/15 ML GT SCH (11:52)
[2017-07-26] MEDS: SILVER SULFADIAZINE 1% TOP CREAM 50 GM JAR TP SCH (11:53)
[2017-07-26] MEDS: CARBIDOPA/LEVODOPA 25/100 TABLET (FP) GT SCH ×2 (11:53→23:27)
[2017-07-26] MEDS: ASCORBIC ACID 500 MG TABLET (FP) GT SCH (11:54)
[2017-07-26] MEDS: RANITIDINE HCL 150 MG/10 ML UNIT-DOSE GT SCH (11:54)
[2017-07-26] MEDS: LACTATED RINGERS SOLUTION 1,000 ML/1,000 ML INFUS.BAG IV SCH (13:34)
--- NOTE | 2017-07-26 16:51 | CON.PULM ---
Consult Consult Specialty:: PULM/CM Referred by:: SALUD Reason for Consultation:: Chronic Respiratory Failure - History of Present Illness Chief Complaint: Malfunctioning PEG History of Present Illness: 82 M, SNF resident. Past medical history of hyperlipidemia, atrial fibrillation , COPD, chronic respiratory failure s/p tracheostomy, coronary artery disease, CVA and dementia. Admitted via the ER due to PEG obstruction/possible illeus. As per the record, family reports the patient has chronic diarrhea with a history of C Diff. No history of respiratory distress or change in his respiratory status. CXR : compared to most recent film: Right lung has cleared / LLL effusion with associated atelectasis - History Source History Provided By: Medical Record Limitations to Obtaining History: Clinical Condition - Past Medical History MANAGER LOGISTIC: Yes: CVA, Dementia, Parkinson's Cardio/Vascular: Yes: AFIB, CAD, Hyperlipdemia Pulmonary: Yes: COPD Gastrointestinal: Yes: GI Bleed Renal/: Yes: BPH Infectious Disease: Yes: Other (, aspiration pneumonia in the past) Musculoskeletal: Yes: Hemiplegia - Past Surgical History Past Surgical History: Yes: Hernia Repair (right inguinal hernia repair), Joint Replacement (pins in left hip) - Alcohol/Substance Use Hx Alcohol Use: No - Smoking History Smoking history: Unknown if ever smoked Have you smoked in the past 12 months: No Aproximately how many cigarettes per day: 0 If you are a former smoker, when did you quit?: 40 years ago - Social History Usual Living Arrangement: [facility] ADL: Support Services (has home health aid) 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 History of Recent Travel: No Home Medications - Allergies Allergies/Adverse Reactions: Allergies Allergy/AdvReac Type Severity Reaction Status Date / Time latex Allergy Verified 07/25/17 21:51 No Known Drug Allergies Allergy Verified 07/25/17 21:51 - Home Medications Home Medications: Ambulatory Orders Albuterol 2.5/Ipratropium 0.5 [Duoneb -] 1 neb IH Q6H 03/20/16 Ascorbic Acid [Vitamin C -] 500 mg GT DAILY 03/20/16 Carbidopa/Levodopa [Carbidopa-Levodopa 25-100 Tab] 1 each GT BID 03/20/16 Aa/Carbon Shar,Whey/Arg/C/Zn/Cu [Lps Critical Care Liquid] 30 ml GT DAILY Donepezil HCl [Aricept -] 10 mg GT DAILY 07/09/16 Collagenase Clostridium Hist. [Santyl -] 1 applic TP DAILY tube 07/14/16 Bacitracin - [Bacitracin Topical Ointment -] 1 applic TP DAILY tube 09/05/16 Lactobacillus Acidophilus [Bacid -] 1 tab GT DAILY tab 09/05/16 Scopolamine Hydrobromide [Transderm-Scop -] 1 patch TD Q72H patch.td72 Acetaminophen [Tylenol .Regular Strength -] 650 mg GT ASDIR PRN 07/25/17 Albuterol 2.5/Ipratropium 0.5 [Duoneb -] 1 neb NEB Q4H 07/25/17 Calcium Carbonate/Vitamin D3 [Oyster Shell 500-Vit D3 200 Tb] 1 each GT DAILY Furosemide [Lasix -] 40 mg GT BID@0600,1400 07/25/17 Loperamide HCl [Loperamide] 2 mg GT Q6H 07/25/17 Oxycodone HCl [Roxicodone -] 5 mg GT Q6H 07/25/17 Potassium Chloride Oral Soln [KCl Oral Solution -] 40 meq GT DAILY 07/25/17 Ranitidine Oral Solution [Zantac Oral Solution -] 150 mg GT DAILY 07/25/17 Silver Sulfadiazine 1% Top Cr [Silvadene -] 1 applic TP DAILY 07/25/17 Warfarin Na [Coumadin -] 3.5 mg GT DAILY@1800 07/25/17 Zinc Sulfate [Orazinc] 220 mg GT BID 07/25/17 Review of Systems Unable to obtain ROS, reason: not able to provide Physical Exam Vital Sings: Vital Signs Temperature 98.7 F 07/26/17 16:08 Pulse Rate 96 H 07/26/17 16:08 Respiratory Rate 20 07/26/17 16:08 Blood Pressure 98/53 07/26/17 16:08 O2 Sat by Pulse Oximetry (%) 100 07/26/17 16:08 Constitutional: Yes: No Distress Eyes: Yes: Conjunctiva Clear HENT: Yes: Atraumatic, Normocephalic Neck: Yes: Trachea Midline, Other (Trached) Cardiovascular: Yes: Pulse Irregular Respiratory: Yes: Mechanically Ventilated, Rhonchi. No: Accessory Muscle Use, Stridor, Tachypnea, Wheezes ...Inspection: Yes: WNL ...Clubbing: No Gastrointestinal: Yes: Normal Bowel Sounds, Distention. No: Pulsatile Mass, Tenderness, Rebound Musculoskeletal: Yes: WNL Extremities: Yes: WNL Edema: No Peripheral Pulses WNL: Yes Neurological: Yes: Lethargy, Pre-Existing Deficit Labs: CBC, BMP 07/26/17 07:53 07/26/17 07:53 ABG Results ABG pH 7.47 (7.35-7.45) H 07/25/17 10:35 ABG pCO2 at Pt Temp 40.8 mmHg (35-45) 07/25/17 10:35 ABG pO2 at Pt Temp 108.0 mmHg (68-100) H 07/25/17 10:35 ABG HCO3 29.3 meq/L (22-26) H 07/25/17 10:35 ABG O2 Sat (Measured) 98.6 % (90-98.9) 07/25/17 10:35 ABG O2 Content 12.7 % vol (15-22) L 07/25/17 10:35 ABG Base Excess 5.6 meq/l (-2-2) H 07/25/17 10:35 Imaging - Results Chest X-ray: Report Reviewed, Image Reviewed X-ray: Report Reviewed, Image Reviewed Problem List - Problems (1) Diarrhea Code(s): R19.7 - DIARRHEA, UNSPECIFIED Qualifiers: Diarrhea type: unspecified type Qualified Code(s): R19.7 - Diarrhea, unspecified (2) Sacral decubitus ulcer Code(s): L89.159 - PRESSURE ULCER OF SACRAL REGION, UNSPECIFIED STAGE Qualifiers: Pressure ulcer stage: stage 3 Qualified Code(s): L89.153 - Pressure ulcer of sacral region, stage 3 (3) A-fib Code(s): I48.91 - UNSPECIFIED ATRIAL FIBRILLATION Qualifiers: Atrial fibrillation type: chronic Qualified Code(s): I48.2 - Chronic atrial fibrillation (4) CHF (congestive heart failure) Code(s): I50.9 - HEART FAILURE, UNSPECIFIED (5) Chronic atrial fibrillation Code(s): I48.2 - CHRONIC ATRIAL FIBRILLATION (6) Chronic respiratory failure Code(s): J96.10 - CHRONIC RESPIRATORY FAILURE, UNSP W HYPOXIA OR HYPERCAPNIA Qualifiers: Respiratory failure complication: hypoxia Qualified Code(s): J96.11 - Chronic respiratory failure with hypoxia (7) Dementia Code(s): F03.90 - UNSPECIFIED DEMENTIA WITHOUT BEHAVIORAL DISTURBANCE Qualifiers: Dementia type: Parkinson's disease Dementia behavioral disturbance: with behavioral disturbance Qualified Code(s): G20 - Parkinson's disease (8) Hyperlipemia Code(s): E78.5 - HYPERLIPIDEMIA, UNSPECIFIED (9) Parkinson disease Code(s): G20 - PARKINSON'S DISEASE (10) Pressure ulcer Code(s): L89.90 - PRESSURE ULCER OF UNSPECIFIED SITE, UNSPECIFIED STAGE Qualifiers: Pressure ulcer stage: stage II Qualified Code(s): L89.92 - Pressure ulcer of unspecified site, stage 2 (11) Venous insufficiency Code(s): I87.2 - VENOUS INSUFFICIENCY (CHRONIC) (PERIPHERAL) (12) Ventilator dependent Code(s): Z99.11 - DEPENDENCE ON RESPIRATOR [VENTILATOR] STATUS Assessment/Plan Maintain current vent settings Not a candidate for wean at this time Will repeat CXR in a few days for comparison GI evaluation BD TX PRN Do not suspect PNA Vent floor Will follow Thank you. Dr Fernandes
--- NOTE | 2017-07-26 16:57 | CON.ID ---
Consult Consult Specialty:: infectious disease Referred by:: duc Reason for Consultation:: lelukocytosis, temp 99.7 - History of Present Illness Chief Complaint: possible ileus History of Present Illness: 82 year old man sent from [place] - history of chronic resp failure trach to vent history of recent peg tube dislodgement- rectal tube placed in [place] last month- now with sacral ulcer has a possible ileus on xray and sent to ED low grade temp 99.7 leukocytosis noted received vancomycin in ED - History Source History Provided By: Medical Record Limitations to Obtaining History: Clinical Condition - Past Medical History 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: CVA, Dementia, Parkinson's Cardio/Vascular: Yes: AFIB, CAD, Hyperlipdemia Pulmonary: Yes: COPD, Other (resp failure with trach) Gastrointestinal: Yes: GI Bleed Renal/: Yes: BPH Infectious Disease: Yes: C-Diff, Other (, aspiration pneumonia in the past, history of osteomyelitis of the left foot treated for 6 weeks iv) Musculoskeletal: Yes: Hemiplegia - Past Surgical History Past Surgical History: Yes: Hernia Repair (right inguinal hernia repair), Joint Replacement (pins in left hip) Additional Surgical History: tracheosotmy , G tube - Alcohol/Substance Use Hx Alcohol Use: No - Smoking History Smoking history: Unknown if ever smoked Have you smoked in the past 12 months: No Aproximately how many cigarettes per day: 0 If you are a former smoker, when did you quit?: 40 years ago - Social History Usual Living Arrangement: Group Home ADL: Support Services (has home health aid) 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 History of Recent Travel: No Home Medications - Allergies Allergies/Adverse Reactions: Allergies Allergy/AdvReac Type Severity Reaction Status Date / Time latex Allergy Verified 07/25/17 21:51 No Known Drug Allergies Allergy Verified 07/25/17 21:51 - Home Medications Home Medications: Ambulatory Orders Albuterol 2.5/Ipratropium 0.5 [Duoneb -] 1 neb IH Q6H 03/20/16 Ascorbic Acid [Vitamin C -] 500 mg GT DAILY 03/20/16 Carbidopa/Levodopa [Carbidopa-Levodopa 25-100 Tab] 1 each GT BID 03/20/16 Aa/Adena Shar,Whey/Arg/C/Zn/Cu [Lps Critical Care Liquid] 30 ml GT DAILY Donepezil HCl [Aricept -] 10 mg GT DAILY 07/09/16 Collagenase Clostridium Hist. [Santyl -] 1 applic TP DAILY tube 07/14/16 Bacitracin - [Bacitracin Topical Ointment -] 1 applic TP DAILY tube 09/05/16 Lactobacillus Acidophilus [Bacid -] 1 tab GT DAILY tab 09/05/16 Scopolamine Hydrobromide [Transderm-Scop -] 1 patch TD Q72H patch.td72 Acetaminophen [Tylenol .Regular Strength -] 650 mg GT ASDIR PRN 07/25/17 Albuterol 2.5/Ipratropium 0.5 [Duoneb -] 1 neb NEB Q4H 07/25/17 Calcium Carbonate/Vitamin D3 [Oyster Shell 500-Vit D3 200 Tb] 1 each GT DAILY Furosemide [Lasix -] 40 mg GT BID@0600,1400 07/25/17 Loperamide HCl [Loperamide] 2 mg GT Q6H 07/25/17 Oxycodone HCl [Roxicodone -] 5 mg GT Q6H 07/25/17 Potassium Chloride Oral Soln [KCl Oral Solution -] 40 meq GT DAILY 07/25/17 Ranitidine Oral Solution [Zantac Oral Solution -] 150 mg GT DAILY 07/25/17 Silver Sulfadiazine 1% Top Cr [Silvadene -] 1 applic TP DAILY 07/25/17 Warfarin Na [Coumadin -] 3.5 mg GT DAILY@1800 07/25/17 Zinc Sulfate [Orazinc] 220 mg GT BID 07/25/17 Family Disease History - Family Disease History Family History: Unable to Obtain Physical Exam Vital Signs: Vital Signs Temperature 98.7 F 07/26/17 16:08 Pulse Rate 96 H 07/26/17 16:08 Respiratory Rate 20 07/26/17 16:08 Blood Pressure 98/53 07/26/17 16:08 O2 Sat by Pulse Oximetry (%) 100 07/26/17 16:08 Constitutional: Yes: No Distress, Other (unresponsive, does not respond or follow commands) Eyes: Yes: Conjunctiva Clear HENT: Yes: Atraumatic, Normocephalic Neck: Yes: Trachea Midline, Other (trach) Cardiovascular: Yes: Regular Rate and Rhythm Respiratory: Yes: Regular, Other (decreased bs at bases) Gastrointestinal: Yes: Normal Bowel Sounds, Soft, Other (GT) Musculoskeletal: Yes: Joint Stiffness Edema: Yes Edema: LLE: 2+, RLE: 2+ Wound/Incision: Yes: Other (bialteral achilles heel ulcers, sacral ulcer) Labs: CBC, BMP 07/26/17 07:53 07/26/17 07:53 Microbiology 07/25/17 11:18 Blood - Peripheral Venous Blood Culture - Preliminary NO GROWTH OBTAINED AFTER 24 HOURS, INCUBATION TO CONTINUE FOR 4 DAYS. 07/25/17 11:18 Blood - Peripheral Venous Blood Culture - Preliminary NO GROWTH OBTAINED AFTER 24 HOURS, INCUBATION TO CONTINUE FOR 4 DAYS. 07/25/17 11:18 Urine - Urine - Catheterized Urine Culture - Preliminary Non Lactose Fermenting Gnb Pending Organism Imaging - Results Chest X-ray: Report Reviewed, Image Reviewed Problem List - Problems (1) Leukocytosis Code(s): D72.829 - ELEVATED WHITE BLOOD CELL COUNT, UNSPECIFIED (2) Diarrhea Code(s): R19.7 - DIARRHEA, UNSPECIFIED Qualifiers: Diarrhea type: unspecified type Qualified Code(s): R19.7 - Diarrhea, unspecified (3) Sacral decubitus ulcer Code(s): L89.159 - PRESSURE ULCER OF SACRAL REGION, UNSPECIFIED STAGE Qualifiers: Pressure ulcer stage: stage 3 Qualified Code(s): L89.153 - Pressure ulcer of sacral region, stage 3 (4) Chronic respiratory failure Code(s): J96.10 - CHRONIC RESPIRATORY FAILURE, UNSP W HYPOXIA OR HYPERCAPNIA Qualifiers: Respiratory failure complication: hypoxia Qualified Code(s): J96.11 - Chronic respiratory failure with hypoxia (5) Dementia Code(s): F03.90 - UNSPECIFIED DEMENTIA WITHOUT BEHAVIORAL DISTURBANCE Qualifiers: Dementia type: Parkinson's disease Dementia behavioral disturbance: with behavioral disturbance Qualified Code(s): G20 - Parkinson's disease Assessment/Plan leukocytosis with low grade fever ?cdiff ?infected sacral ulcer ua and culture from [place] catheter urine - not sure he has a UTI flagyl/zosyn f/u cultures check cdiff wound care consult for decubitus ulcer monitor inr closely while on flagyl
[2017-07-26] MEDS ORDERED: PIPERACILLIN/TAZOB 3.375 GM/50 ML PRE-DOCKED IVPB SCH (17:15)
[2017-07-26] MEDS ORDERED: WARFARIN NA 5 MG TABLET (UD) GT SCH (18:00)
[2017-07-26] MEDS ORDERED: PIPERACILLIN/TAZOB 3.375 GM 3.375 GM/50 ML BAG IVPB ONE (18:06)
[2017-07-26] MEDS: WARFARIN NA 2.5 MG, WARFARIN NA 1 MG GT SCH (18:08)
[2017-07-26] MEDS: PIPERACILLIN/TAZOB 3.375 GM 3.375 GM in DEXTROSE 5%-WATER - 100 ML IVPB SCH (18:08)
--- NOTE | 2017-07-26 20:07 | PN ---
Progress Note, Physician - Current Medication List Current Medications: Active Medications Acetaminophen (Tylenol -) 650 mg PO Q6H PRN PRN Reason: FEVER Albuterol/Ipratropium (Duoneb -) 1 amp NEB RQID [facility] Last Admin: 07/26/17 17:27 Dose: 1 amp Ascorbic Acid (Vitamin C -) 500 mg GT DAILY [facility] Last Admin: 07/26/17 11:54 Dose: 500 mg Calcium Carbonate/Cholecalciferol (Os-Frankie 500+D -) 1 tab GT DAILY [facility] Last Admin: 07/26/17 11:51 Dose: 1 tab Carbidopa/Levodopa (Sinemet 25/100 -) 1 each GT BID [facility] Last Admin: 07/26/17 11:53 Dose: 1 each Collagenase (Santyl -) 1 applic TP DAILY [facility] Last Admin: 07/26/17 11:52 Dose: Not Given Donepezil HCl (Aricept -) 10 mg GT HS [facility] Furosemide (Lasix -) 40 mg GT BID@0600,1400 [facility] Last Admin: 07/26/17 14:42 Dose: 40 mg Lactated Ringer's (Lactated Ringers Solution) 1,000 ml in 1,000 mls @ 75 mls/ hr IV ASDIR [facility] Last Admin: 07/26/17 13:34 Dose: 75 mls/hr Piperacillin Sod/Tazobactam (Sod 3.375 gm/ Dextrose) 100 mls @ 200 mls/hr IVPB Q8H-IV [facility] Last Admin: 07/26/17 18:08 Dose: 200 mls/hr Lactobacillus Acidophilus (Bacid -) 1 tab GT DAILY [facility] Last Admin: 07/26/17 11:51 Dose: 1 tab Loperamide HCl (Imodium Liquid -) 2 mg GT Q6H PRN PRN Reason: DIARRHEA Metronidazole (Flagyl -) 500 mg PO TID [facility] Oxycodone HCl (Roxicodone -) 5 mg GT Q6H PRN PRN Reason: PAIN LEVEL 6-10 Last Admin: 07/26/17 00:51 Dose: 5 mg Potassium Chloride (Potassium Chloride Oral Liquid) 40 meq GT DAILY [facility] Last Admin: 07/26/17 11:52 Dose: 40 meq Ranitidine HCl (Zantac Oral Solution -) 150 mg GT DAILY [facility] Last Admin: 07/26/17 11:54 Dose: 150 mg Scopolamine HBr (Transderm-Scop -) 1 patch TD Q72H [facility] Last Admin: 07/26/17 01:10 Dose: Not Given Silver Sulfadiazine (Silvadene -) 1 applic TP DAILY [facility] Last Admin: 07/26/17 11:53 Dose: Not Given Warfarin Sodium 2.5 mg/ (Warfarin Sodium 1 mg) 3.5 mg GT DAILY@1800 [facility] Last Admin: 07/26/17 18:08 Dose: 3.5 mg Zinc Sulfate (Orazinc -) 220 mg GT BID [facility] Last Admin: 07/26/17 11:51 Dose: 220 mg - Objective Vital Signs: Vital Signs Temperature 98.7 F 07/26/17 16:08 Pulse Rate 96 H 07/26/17 16:08 Respiratory Rate 19 07/26/17 19:41 Blood Pressure 98/53 07/26/17 16:08 O2 Sat by Pulse Oximetry (%) 100 07/26/17 16:08 Labs: CBC, BMP 07/26/17 07:53 07/26/17 07:53 INR, PTT INR 2.04 (0.82-1.09) H 07/26/17 07:53 Problem List - Problems (1) Leukocytosis Assessment/Plan: CULTURES ID ON CASE ON ZOSYN FOLLOW LABS Code(s): D72.829 - ELEVATED WHITE BLOOD CELL COUNT, UNSPECIFIED (2) Sacral decubitus ulcer Assessment/Plan: ON ZOSYN ID SURGICAL CONSULT Code(s): L89.159 - PRESSURE ULCER OF SACRAL REGION, UNSPECIFIED STAGE Qualifiers: Pressure ulcer stage: stage 3 Qualified Code(s): L89.153 - Pressure ulcer of sacral region, stage 3 (3) A-fib Assessment/Plan: Laboratory Tests 07/26/17 07:53 INR 2.04 H SAME COUMADIN Code(s): I48.91 - UNSPECIFIED ATRIAL FIBRILLATION Qualifiers: Atrial fibrillation type: chronic Qualified Code(s): I48.2 - Chronic atrial fibrillation (4) CHF (congestive heart failure) Assessment/Plan: ON PO LASIX Code(s): I50.9 - HEART FAILURE, UNSPECIFIED (5) UTI (lower urinary tract infection) Assessment/Plan: ON ABX CULTURES--AWAIT FINAL Code(s): N39.0 - URINARY TRACT INFECTION, SITE NOT SPECIFIED
[2017-07-26] MEDS ORDERED: metroNIDAZOLE 250 MG TABLET ONE (22:16)
[2017-07-26] MEDS ORDERED: DONEPEZIL HCL 5 MG TABLET (FP) ONE (22:18)
[2017-07-26] MEDS: metroNIDAZOLE 250 MG TABLET PO SCH (23:26)
[2017-07-26] MEDS: DONEPEZIL HCL 10 MG TABLET (FP) GT SCH (23:26)
[2017-07-27] MEDS ORDERED: PIPERACILLIN/TAZOB 3.375 GM 3.375 GM/50 ML BAG IVPB ONE ×2 (02:28→19:34)
[2017-07-27] MEDS: PIPERACILLIN/TAZOB 3.375 GM 3.375 GM in DEXTROSE 5%-WATER - 100 ML IVPB SCH ×3 (02:53→19:40)
[2017-07-27] MEDS ORDERED: metroNIDAZOLE 250 MG TABLET ONE (06:06)
[2017-07-27] MEDS ORDERED: FUROSEMIDE 40 MG TABLET (FP) ONE (06:07)
[2017-07-27] MEDS: metroNIDAZOLE 250 MG TABLET PO SCH ×3 (06:10→22:04)
[2017-07-27] MEDS: FUROSEMIDE 40 MG TABLET (FP) GT SCH ×2 (06:10→15:14)
[2017-07-27 09:00] LABS: ALBUMIN 1.8 g/dl (3.4-5.0); ALK PHOS 120 U/L (45-117); ANION GAP 5 (8-16); BLOOD UREA NITROGEN 29 mg/dL (7-18); CALCIUM 7.6 mg/dL (8.5-10.1); CHLORIDE 109 mmol/L (98-107); CO2 31 mmol/L (21-32); CREATININE 0.8 mg/dL (0.7-1.3); GLUCOSE,RANDOM 97 mg/dL (74-106); POTASSIUM 3.9 mmol/L (3.5-5.1); SGOT/AST 25 U/L (15-37); SGPT/ALT 17 U/L (12-78); SODIUM 145 mmol/L (136-145); TOT PROT 7.1 g/dl (6.4-8.2)
[2017-07-27 09:02] LABS: INR 2.04 (0.82-1.09)
[2017-07-27 09:17] LABS: HEMATOCRIT 34.7 % (35.4-49); HEMOGLOBIN 10.4 GM/dL (11.7-16.9); MCH 25.3 pg (25.7-33.7); MEAN CELL VOLUME 84.4 fl (80-96); MEAN PLT VOLUME 8.7 fl (7.5-11.1); PLATELET COUNT 352 K/MM3 (134-434); RBC 4.11 M/mm3 (4.00-5.60); RDW 15.9 % (11.9-15.9); WHITE BLOOD COUNT 14.1 K/mm3 (4.0-10.0)
[2017-07-27] MEDS: ALBUTEROL SO4 2.5/IPRATROPIUM 0.5 INH SOL 3 ML VIAL.NEB. NEB SCH ×4 (11:08→19:29)
[2017-07-27] MEDS: LACTOBACILLUS ACIDOPHILUS 1 EACH TAB (FP) GT SCH (11:09)
[2017-07-27] MEDS: ZINC SULFATE 220 MG CAPSULE (FP) GT SCH ×2 (11:10→22:04)
[2017-07-27] MEDS: CALCIUM 500MG/VIT-D 200 UNITS COMBO TABLET (FP) GT SCH (11:10)
[2017-07-27] MEDS: POTASSIUM CHLORIDE ORAL LIQUID 20 MEQ/15 ML GT SCH (11:10)
[2017-07-27] MEDS: COLLAGENASE CLOSTRIDIUM HIST. 30 GRAMS TUBE TP SCH (11:12)
[2017-07-27] MEDS: SILVER SULFADIAZINE 1% TOP CREAM 50 GM JAR TP SCH (11:13)
[2017-07-27] MEDS: ASCORBIC ACID 500 MG TABLET (FP) GT SCH (11:13)
[2017-07-27] MEDS: CARBIDOPA/LEVODOPA 25/100 TABLET (FP) GT SCH ×2 (11:13→22:04)
[2017-07-27] MEDS: RANITIDINE HCL 150 MG/10 ML UNIT-DOSE GT SCH (11:14)
--- NOTE | 2017-07-27 12:18 | CON.GI ---
Consult Consult Specialty:: Gastroenterology Referred by:: Cristina Pisano NP Reason for Consultation:: Diarrhea - History of Present Illness Chief Complaint: 82M with severe OMS on a ventilator via trachestomy is transferred from the [place] for dislodged PEG tube. After reinsertion a question of obstruction was raised. Gastrograffin given via the G tube yesterday however reveals contrast within the confines of the stomach which does progress in the small bowel. No vomiting has been reported. I suctioned the G tube and get minimal bilious fluid return. No blood. Abel is known to our practice from previous consultationsin at [facility]. I inserted his PEG on 07/16/15. I last did a colonoscopy on 03/29/12 when a sigmoid adenoma was removed and when a sigmoid colitis most suggestive of ischemic colitis was found. He has had C diff in the past and has chronic diarrhea that has led to a decubitus ulcer and has required a rectal tube. 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: CVA, Dementia, Parkinson's Cardio/Vascular: Yes: AFIB (paroxysmal), CAD, Deep Vein Thrombosis, Hyperlipdemia Pulmonary: Yes: COPD, Pneumonia (repeated aspiration pneumonias, Pseudomonas pneumonia 07/21) Gastrointestinal: Yes: Other (ischemic colitis and sigmoid adenoma removed , gastric cardia polyps) Renal/: Yes: BPH, Renal Calculi Infectious Disease: Yes: Other (, aspiration pneumonia in the past) Psych: Yes: Depression Musculoskeletal: Yes: Hemiplegia - Past Surgical History Past Surgical History: Yes: Colonoscopy, Hernia Repair (right inguinal hernia repair), Upper Endoscopy Additional Surgical History: tracheostomy. G tube. left ear skin cancer excision. 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 Place of : [facility] History of Recent Travel: No Home Medications - Allergies Allergies/Adverse Reactions: Allergies Allergy/AdvReac Type Severity Reaction Status Date / Time latex Allergy Verified 07/25/17 21:51 No Known Drug Allergies Allergy Verified 07/25/17 21:51 - Home Medications Home Medications: Ambulatory Orders Albuterol 2.5/Ipratropium 0.5 [Duoneb -] 1 neb IH Q6H 03/20/16 Ascorbic Acid [Vitamin C -] 500 mg GT DAILY 03/20/16 Carbidopa/Levodopa [Carbidopa-Levodopa 25-100 Tab] 1 each GT BID 03/20/16 Aa/Sheridan Shar,Whey/Arg/C/Zn/Cu [Lps Critical Care Liquid] 30 ml GT DAILY Donepezil HCl [Aricept -] 10 mg GT DAILY 07/09/16 Collagenase Clostridium Hist. [Santyl -] 1 applic TP DAILY tube 07/14/16 Bacitracin - [Bacitracin Topical Ointment -] 1 applic TP DAILY tube 09/05/16 Lactobacillus Acidophilus [Bacid -] 1 tab GT DAILY tab 09/05/16 Scopolamine Hydrobromide [Transderm-Scop -] 1 patch TD Q72H patch.td72 Acetaminophen [Tylenol .Regular Strength -] 650 mg GT ASDIR PRN 07/25/17 Albuterol 2.5/Ipratropium 0.5 [Duoneb -] 1 neb NEB Q4H 07/25/17 Calcium Carbonate/Vitamin D3 [Oyster Shell 500-Vit D3 200 Tb] 1 each GT DAILY Furosemide [Lasix -] 40 mg GT BID@0600,1400 07/25/17 Loperamide HCl [Loperamide] 2 mg GT Q6H 07/25/17 Oxycodone HCl [Roxicodone -] 5 mg GT Q6H 07/25/17 Potassium Chloride Oral Soln [KCl Oral Solution -] 40 meq GT DAILY 07/25/17 Ranitidine Oral Solution [Zantac Oral Solution -] 150 mg GT DAILY 07/25/17 Silver Sulfadiazine 1% Top Cr [Silvadene -] 1 applic TP DAILY 07/25/17 Warfarin Na [Coumadin -] 3.5 mg GT DAILY@1800 07/25/17 Zinc Sulfate [Orazinc] 220 mg GT BID 07/25/17 Family Disease History - Family Disease History Family History: Unable to Obtain (significant only for skin cancer) Physical Exam-GI Vital Signs: Vital Signs Temperature 99.1 F 07/27/17 12:07 Pulse Rate 92 H 07/27/17 12:07 Respiratory Rate 16 07/27/17 12:07 Blood Pressure 119/67 07/27/17 12:07 O2 Sat by Pulse Oximetry (%) 100 07/27/17 12:07 Constitutional: Yes: Other (Ventilated via trach, not communicative) Eyes: Yes: Conjunctiva Clear HENT: Yes: Atraumatic Neck: Yes: Other (midline tracheostomy) Cardiovascular: Yes: Regular Rate and Rhythm Respiratory: Yes: Other (scattered rhonchi) Gastrointestinal Inspection: Yes: Other (loose LUQ PEG tube tightended and aspirated, yielding only small amount of bilious fluid) ...Auscultate: Yes: Normoactive Bowel Sounds ...Palpate: Yes: Soft, Other (nontender) ...Rectal Exam: Yes: Guaiac Negative (dark brown loose guaiac negative stool), Other (sacral decubitus and perianal erthema) Neurological: Yes: Other (noncommunicative) Labs: CBC, BMP 07/27/17 08:20 07/27/17 08:20 INR, PTT INR 2.04 (0.82-1.09) H 07/27/17 08:20 Imaging - Results X-ray: Image Reviewed (gastrograffon via G tube reaches small bowel) Problem List - Problems (1) Chronic diarrhea Assessment/Plan: Suspect that 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 He is not a candidate for elective colonoscopy for adenoma surveillance or colitis evaluation but I will screen his stool for C diff and other pathogens Code(s): K52.9 - NONINFECTIVE GASTROENTERITIS AND COLITIS, UNSPECIFIED (2) PEG (percutaneous endoscopic gastrostomy) adjustment/replacement/removal Assessment/Plan: PEG bumper tightened. Will order gastrograffin CT via G tube to exclude small bowel or gastric outlet obstruction Code(s): Z43.1 - ENCOUNTER FOR ATTENTION TO GASTROSTOMY
--- NOTE | 2017-07-27 13:08 | PN ---
Progress Note, Physician Chief Complaint: seen in ER sent in for possible PEG tube obstruction - Current Medication List Current Medications: Active Medications Acetaminophen (Tylenol -) 650 mg PO Q6H PRN PRN Reason: FEVER Albuterol/Ipratropium (Duoneb -) 1 amp NEB RQID [facility] Last Admin: 07/27/17 11:08 Dose: 1 amp Ascorbic Acid (Vitamin C -) 500 mg GT DAILY [facility] Last Admin: 07/27/17 11:13 Dose: 500 mg Calcium Carbonate/Cholecalciferol (Os-Frankie 500+D -) 1 tab GT DAILY [facility] Last Admin: 07/27/17 11:10 Dose: 1 tab Carbidopa/Levodopa (Sinemet 25/100 -) 1 each GT BID [facility] Last Admin: 07/27/17 11:13 Dose: 1 each Collagenase (Santyl -) 1 applic TP DAILY [facility] Last Admin: 07/27/17 11:12 Dose: Not Given Donepezil HCl (Aricept -) 10 mg GT HS [facility] Last Admin: 07/26/17 23:26 Dose: 10 mg Furosemide (Lasix -) 40 mg GT BID@0600,1400 [facility] Last Admin: 07/27/17 06:10 Dose: 40 mg Lactated Ringer's (Lactated Ringers Solution) 1,000 ml in 1,000 mls @ 75 mls/ hr IV ASDIR [facility] Last Admin: 07/26/17 13:34 Dose: 75 mls/hr Piperacillin Sod/Tazobactam (Sod 3.375 gm/ Dextrose) 100 mls @ 200 mls/hr IVPB Q8H-IV [facility] Last Admin: 07/27/17 11:14 Dose: 200 mls/hr Lactobacillus Acidophilus (Bacid -) 1 tab GT DAILY [facility] Last Admin: 07/27/17 11:09 Dose: 1 tab Loperamide HCl (Imodium Liquid -) 2 mg GT Q6H PRN PRN Reason: DIARRHEA Metronidazole (Flagyl -) 500 mg PO TID [facility] Last Admin: 07/27/17 06:10 Dose: 500 mg Oxycodone HCl (Roxicodone -) 5 mg GT Q6H PRN PRN Reason: PAIN LEVEL 6-10 Last Admin: 07/26/17 00:51 Dose: 5 mg Potassium Chloride (Potassium Chloride Oral Liquid) 40 meq GT DAILY [facility] Last Admin: 07/27/17 11:10 Dose: 40 meq Ranitidine HCl (Zantac Oral Solution -) 150 mg GT DAILY [facility] Last Admin: 07/27/17 11:14 Dose: 150 mg Scopolamine HBr (Transderm-Scop -) 1 patch TD Q72H [facility] Last Admin: 07/26/17 01:10 Dose: Not Given Silver Sulfadiazine (Silvadene -) 1 applic TP DAILY [facility] Last Admin: 07/27/17 11:13 Dose: 1 applic Warfarin Sodium 2.5 mg/ (Warfarin Sodium 1 mg) 3.5 mg GT DAILY@1800 [facility] Last Admin: 07/26/17 18:08 Dose: 3.5 mg Zinc Sulfate (Orazinc -) 220 mg GT BID [facility] Last Admin: 07/27/17 11:10 Dose: 220 mg - Objective Vital Signs: Vital Signs Temperature 99.1 F 07/27/17 12:07 Pulse Rate 92 H 07/27/17 12:07 Respiratory Rate 16 07/27/17 12:07 Blood Pressure 119/67 07/27/17 12:07 O2 Sat by Pulse Oximetry (%) 100 07/27/17 12:07 Constitutional: Yes: Calm Cardiovascular: Yes: Regular Rate and Rhythm, S1, S2 Respiratory: Yes: Mechanically Ventilated Gastrointestinal: Yes: Normal Bowel Sounds, Soft, Other (peg) Edema: Yes Labs: CBC, BMP 07/27/17 08:20 07/27/17 08:20 INR, PTT INR 2.04 (0.82-1.09) H 07/27/17 08:20 Problem List - Problems (1) Chronic diarrhea Assessment/Plan: seen by GI stool studies c diff negative Code(s): K52.9 - NONINFECTIVE GASTROENTERITIS AND COLITIS, UNSPECIFIED (2) Sacral decubitus ulcer Assessment/Plan: collagenase wound care frequent turn and position Code(s): L89.159 - PRESSURE ULCER OF SACRAL REGION, UNSPECIFIED STAGE Qualifiers: Pressure ulcer stage: stage 3 Qualified Code(s): L89.153 - Pressure ulcer of sacral region, stage 3 (3) A-fib Assessment/Plan: on coumadin inr 2-3 Code(s): I48.91 - UNSPECIFIED ATRIAL FIBRILLATION Qualifiers: Atrial fibrillation type: chronic Qualified Code(s): I48.2 - Chronic atrial fibrillation (4) Dementia Assessment/Plan: aricept Code(s): F03.90 - UNSPECIFIED DEMENTIA WITHOUT BEHAVIORAL DISTURBANCE Qualifiers: Dementia type: Parkinson's disease Dementia behavioral disturbance: with behavioral disturbance Qualified Code(s): G20 - Parkinson's disease (5) PEG (percutaneous endoscopic gastrostomy) adjustment/replacement/removal Assessment/Plan: gastrograffin study ordered to r/o outlet obstruction Code(s): Z43.1 - ENCOUNTER FOR ATTENTION TO GASTROSTOMY (6) Leukocytosis Assessment/Plan: ID on board cultures pending on iv antibiotic Code(s): D72.829 - ELEVATED WHITE BLOOD CELL COUNT, UNSPECIFIED
--- NOTE | 2017-07-27 14:20 | PN ---
Progress Note (short form) - Note Progress Note: unresponsive trach to vent Vital Signs Period Temp Pulse Resp BP Sys/Limon Pulse Ox Last 24 Hr 98.2 F-99.1 F 80-96 12-20 88-136/53-79 99-100 cor-rrr llungs decreased bs at bses abd soft,nt +GT +rectal tube ext bilateral pedal edema and heel ulcers sacral ulcer CBC, BMP 07/27/17 08:20 07/27/17 08:20 Microbiology 07/25/17 11:18 Urine - Urine - Catheterized Urine Culture - Preliminary Pseudomonas Aeruginosa Group D Strep Or Entero Coccus 07/26/17 06:00 Stool Clostridium difficile (PCR) - Preliminary 07/26/17 06:31 Decubiti Wound Culture - Preliminary Non Lactose Fermenting Gnb Non Lactose Fermenting Gnb#2 Pending Organism Pending Organism#2 07/27/17 03:20 Stool Clostridium difficile Antigen (FAVIAN) - Final 07/27/17 03:20 Stool Clostridium difficile Toxin Assay - Final 07/25/17 11:18 Blood - Peripheral Venous Blood Culture - Preliminary NO GROWTH OBTAINED AFTER 48 HOURS, INCUBATION TO CONTINUE FOR 3 DAYS. 07/25/17 11:18 Blood - Peripheral Venous Blood Culture - Preliminary NO GROWTH OBTAINED AFTER 48 HOURS, INCUBATION TO CONTINUE FOR 3 DAYS. a/p leukoctosis continue zosyn, f/u cultures cdiff is negative GI f/u noted Problem List - Problems (1) Leukocytosis Code(s): D72.829 - ELEVATED WHITE BLOOD CELL COUNT, UNSPECIFIED (2) Diarrhea Code(s): R19.7 - DIARRHEA, UNSPECIFIED Qualifiers: Diarrhea type: unspecified type Qualified Code(s): R19.7 - Diarrhea, unspecified (3) Sacral decubitus ulcer Code(s): L89.159 - PRESSURE ULCER OF SACRAL REGION, UNSPECIFIED STAGE Qualifiers: Pressure ulcer stage: stage 3 Qualified Code(s): L89.153 - Pressure ulcer of sacral region, stage 3 (4) Chronic respiratory failure Code(s): J96.10 - CHRONIC RESPIRATORY FAILURE, UNSP W HYPOXIA OR HYPERCAPNIA Qualifiers: Respiratory failure complication: hypoxia Qualified Code(s): J96.11 - Chronic respiratory failure with hypoxia (5) Dementia Code(s): F03.90 - UNSPECIFIED DEMENTIA WITHOUT BEHAVIORAL DISTURBANCE Qualifiers: Dementia type: Parkinson's disease Dementia behavioral disturbance: with behavioral disturbance Qualified Code(s): G20 - Parkinson's disease
[2017-07-27] MEDS: LACTATED RINGERS SOLUTION 1,000 ML/1,000 ML INFUS.BAG IV SCH (15:14)
--- NOTE | 2017-07-27 16:00 | PN ---
Progress Note (short form) - Note Progress Note: NAD on AC Mode of vent. No acute events overnight. CT Abdomen/Pelvis noted. No bowel obstruction / bilateral small pleural effusions/atelectasis. Intake & Output 07/24/17 07/25/17 07/26/17 07/27/17 23:59 23:59 23:59 23:59 Intake Total 0 1000 Output Total 200 Balance -200 1000 Weight 250 lb Last Vital Signs Temp Pulse Resp BP Pulse Ox 99.1 F 96 H 26 H 88/66 100 07/27/17 12:20 07/27/17 12:20 07/27/17 15:47 07/27/17 12:20 07/27/17 12:20 Active Medications Acetaminophen (Tylenol -) 650 mg PO Q6H PRN PRN Reason: FEVER Last Admin: 07/27/17 15:13 Dose: 650 mg Albuterol/Ipratropium (Duoneb -) 1 amp NEB RQID [facility] Last Admin: 07/27/17 15:48 Dose: 1 amp Ascorbic Acid (Vitamin C -) 500 mg GT DAILY [facility] Last Admin: 07/27/17 11:13 Dose: 500 mg Calcium Carbonate/Cholecalciferol (Os-Frankie 500+D -) 1 tab GT DAILY [facility] Last Admin: 07/27/17 11:10 Dose: 1 tab Carbidopa/Levodopa (Sinemet 25/100 -) 1 each GT BID [facility] Last Admin: 07/27/17 11:13 Dose: 1 each Collagenase (Santyl -) 1 applic TP DAILY [facility] Last Admin: 07/27/17 11:12 Dose: Not Given Donepezil HCl (Aricept -) 10 mg GT HS [facility] Last Admin: 07/26/17 23:26 Dose: 10 mg Furosemide (Lasix -) 40 mg GT BID@0600,1400 [facility] Last Admin: 07/27/17 15:14 Dose: 40 mg Lactated Ringer's (Lactated Ringers Solution) 1,000 ml in 1,000 mls @ 75 mls/ hr IV ASDIR [facility] Last Admin: 07/27/17 15:14 Dose: 75 mls/hr Piperacillin Sod/Tazobactam (Sod 3.375 gm/ Dextrose) 100 mls @ 200 mls/hr IVPB Q8H-IV [facility] Last Admin: 01/22/18 11:14 Dose: 200 mls/hr Lactobacillus Acidophilus (Bacid -) 1 tab GT DAILY [facility] Last Admin: 07/27/17 11:09 Dose: 1 tab Loperamide HCl (Imodium Liquid -) 2 mg GT Q6H PRN PRN Reason: DIARRHEA Metronidazole (Flagyl -) 500 mg PO TID [facility] Last Admin: 07/27/17 15:15 Dose: 500 mg Oxycodone HCl (Roxicodone -) 5 mg GT Q6H PRN PRN Reason: PAIN LEVEL 6-10 Last Admin: 07/26/17 00:51 Dose: 5 mg Potassium Chloride (Potassium Chloride Oral Liquid) 40 meq GT DAILY [facility] Last Admin: 07/27/17 11:10 Dose: 40 meq Ranitidine HCl (Zantac Oral Solution -) 150 mg GT DAILY [facility] Last Admin: 07/27/17 11:14 Dose: 150 mg Scopolamine HBr (Transderm-Scop -) 1 patch TD Q72H [facility] Last Admin: 07/26/17 01:10 Dose: Not Given Silver Sulfadiazine (Silvadene -) 1 applic TP DAILY [facility] Last Admin: 07/27/17 11:13 Dose: 1 applic Warfarin Sodium 2.5 mg/ (Warfarin Sodium 1 mg) 3.5 mg GT DAILY@1800 [facility] Last Admin: 07/26/17 18:08 Dose: 3.5 mg Zinc Sulfate (Orazinc -) 220 mg GT BID [facility] Last Admin: 07/27/17 11:10 Dose: 220 mg Constitutional: Yes: Poorly responsive, Vented Eyes: Yes: Conjunctiva Clear HENT: Yes: Atraumatic, Normocephalic Neck: Yes: Trachea Midline, Other (Trached) Cardiovascular: Yes: Pulse Irregular Respiratory: Yes: Mechanically Ventilated, Rhonchi. No: Accessory Muscle Use, Stridor, Tachypnea, Wheezes ...Inspection: Yes: WNL ...Clubbing: No Gastrointestinal: Yes: Normal Bowel Sounds, Distention. No: Pulsatile Mass, Tenderness, Rebound Musculoskeletal: Yes: WNL Extremities: Yes: WNL Edema: No Peripheral Pulses WNL: Yes Neurological: Yes: Lethargy, Pre-Existing Deficit Labs: Laboratory Results - last 24 hr 07/27/17 07/27/17 07/27/17 08:20 08:20 08:20 WBC 14.1 H RBC 4.11 Hgb 10.4 L Hct 34.7 L MCV 84.4 MCH 25.3 L MCHC 30.0 L RDW 15.9 Plt Count 352 D MPV 8.7 PT with INR 23.00 H INR 2.04 H Sodium 145 Potassium 3.9 Chloride 109 H Carbon Dioxide 31 Anion Gap 5 L BUN 29 H Creatinine 0.8 Creat Clearance w eGFR > 60 Random Glucose 97 Calcium 7.6 L Total Bilirubin 1.0 D AST 25 D ALT 17 D Alkaline Phosphatase 120 H Total Protein 7.1 Albumin 1.8 L Problem List - Problems (1) Diarrhea Code(s): R19.7 - DIARRHEA, UNSPECIFIED Qualifiers: Diarrhea type: unspecified type Qualified Code(s): R19.7 - Diarrhea, unspecified (2) Sacral decubitus ulcer Code(s): L89.159 - PRESSURE ULCER OF SACRAL REGION, UNSPECIFIED STAGE Qualifiers: Pressure ulcer stage: stage 3 Qualified Code(s): L89.153 - Pressure ulcer of sacral region, stage 3 (3) A-fib Code(s): I48.91 - UNSPECIFIED ATRIAL FIBRILLATION Qualifiers: Atrial fibrillation type: chronic Qualified Code(s): I48.2 - Chronic atrial fibrillation (4) CHF (congestive heart failure) Code(s): I50.9 - HEART FAILURE, UNSPECIFIED (5) Chronic atrial fibrillation Code(s): I48.2 - CHRONIC ATRIAL FIBRILLATION (6) Chronic respiratory failure Code(s): J96.10 - CHRONIC RESPIRATORY FAILURE, UNSP W HYPOXIA OR HYPERCAPNIA Qualifiers: Respiratory failure complication: hypoxia Qualified Code(s): J96.11 - Chronic respiratory failure with hypoxia (7) Dementia Code(s): F03.90 - UNSPECIFIED DEMENTIA WITHOUT BEHAVIORAL DISTURBANCE Qualifiers: Dementia type: Parkinson's disease Dementia behavioral disturbance: with behavioral disturbance Qualified Code(s): G20 - Parkinson's disease (8) Hyperlipemia Code(s): E78.5 - HYPERLIPIDEMIA, UNSPECIFIED (9) Parkinson disease Code(s): G20 - PARKINSON'S DISEASE (10) Pressure ulcer Code(s): L89.90 - PRESSURE ULCER OF UNSPECIFIED SITE, UNSPECIFIED STAGE Qualifiers: Pressure ulcer stage: stage II Qualified Code(s): L89.92 - Pressure ulcer of unspecified site, stage 2 (11) Venous insufficiency Code(s): I87.2 - VENOUS INSUFFICIENCY (CHRONIC) (PERIPHERAL) (12) Ventilator dependent Code(s): Z99.11 - DEPENDENCE ON RESPIRATOR [VENTILATOR] STATUS Assessment/Plan Maintain current vent settings Not a candidate for wean at this time BD TX PRN Do not suspect PNA Vent floor ABX per ID Dr Fernandes Problem List - Problems (1) Diarrhea Code(s): R19.7 - DIARRHEA, UNSPECIFIED Qualifiers: Diarrhea type: unspecified type Qualified Code(s): R19.7 - Diarrhea, unspecified (2) Sacral decubitus ulcer Code(s): L89.159 - PRESSURE ULCER OF SACRAL REGION, UNSPECIFIED STAGE Qualifiers: Pressure ulcer stage: stage 3 Qualified Code(s): L89.153 - Pressure ulcer of sacral region, stage 3 (3) A-fib Code(s): I48.91 - UNSPECIFIED ATRIAL FIBRILLATION Qualifiers: Atrial fibrillation type: chronic Qualified Code(s): I48.2 - Chronic atrial fibrillation (4) CHF (congestive heart failure) Code(s): I50.9 - HEART FAILURE, UNSPECIFIED (5) Chronic atrial fibrillation Code(s): I48.2 - CHRONIC ATRIAL FIBRILLATION (6) Chronic respiratory failure Code(s): J96.10 - CHRONIC RESPIRATORY FAILURE, UNSP W HYPOXIA OR HYPERCAPNIA Qualifiers: Respiratory failure complication: hypoxia Qualified Code(s): J96.11 - Chronic respiratory failure with hypoxia (7) Dementia Code(s): F03.90 - UNSPECIFIED DEMENTIA WITHOUT BEHAVIORAL DISTURBANCE Qualifiers: Dementia type: Parkinson's disease Dementia behavioral disturbance: with behavioral disturbance Qualified Code(s): G20 - Parkinson's disease (8) Hyperlipemia Code(s): E78.5 - HYPERLIPIDEMIA, UNSPECIFIED (9) Parkinson disease Code(s): G20 - PARKINSON'S DISEASE (10) Pressure ulcer Code(s): L89.90 - PRESSURE ULCER OF UNSPECIFIED SITE, UNSPECIFIED STAGE Qualifiers: Pressure ulcer stage: stage II Qualified Code(s): L89.92 - Pressure ulcer of unspecified site, stage 2 (11) Venous insufficiency Code(s): I87.2 - VENOUS INSUFFICIENCY (CHRONIC) (PERIPHERAL) (12) Ventilator dependent Code(s): Z99.11 - DEPENDENCE ON RESPIRATOR [VENTILATOR] STATUS
[2017-07-27] MEDS: WARFARIN NA 2.5 MG, WARFARIN NA 1 MG GT SCH (19:25)
[2017-07-27] MEDS: DONEPEZIL HCL 10 MG TABLET (FP) GT SCH (22:04)
[2017-07-28] MEDS: oxyCODONE HCL 5 MG TABLET GT PRN (00:58)
[2017-07-28] MEDS: PIPERACILLIN/TAZOB 3.375 GM 3.375 GM in DEXTROSE 5%-WATER - 100 ML IVPB SCH ×3 (02:20→17:13)
[2017-07-28] MEDS: metroNIDAZOLE 250 MG TABLET PO SCH ×3 (05:41→22:11)
[2017-07-28] MEDS: FUROSEMIDE 40 MG TABLET (FP) GT SCH ×2 (05:41→14:24)
[2017-07-28] MEDS: ALBUTEROL SO4 2.5/IPRATROPIUM 0.5 INH SOL 3 ML VIAL.NEB. NEB SCH ×4 (07:45→21:30)
[2017-07-28 07:57] LABS: BASO % 0.7 % (0-2.0); HEMATOCRIT 32.2 % (35.4-49); LYMPH % 16.3 % (8-40); MCH 25.9 pg (25.7-33.7); MEAN CELL VOLUME 83.5 fl (80-96); MEAN PLT VOLUME 8.5 fl (7.5-11.1); MONO % 8.3 % (3.8-10.2); NEUT % 68.7 % (42.8-82.8); PLATELET COUNT 387 K/MM3 (134-434); RBC 3.86 M/mm3 (4.00-5.60); RDW 16.2 % (11.9-15.9); WHITE BLOOD COUNT 13.9 K/mm3 (4.0-10.0)
[2017-07-28 08:24] LABS: CHLORIDE 105 mmol/L (98-107); POTASSIUM 3.5 mmol/L (3.5-5.1); SODIUM 143 mmol/L (136-145)
[2017-07-28 08:37] LABS: INR 2.2 (0.82-1.09); PROTHROMBIN TIME (PATIENT) 24.9 SEC (9.98-11.88)
[2017-07-28 08:42] LABS: ALBUMIN 1.7 g/dl (3.4-5.0); ALK PHOS 116 U/L (45-117); ANION GAP 8 (8-16); BILIRUBIN,TOTAL 0.8 mg/dL (0.2-1.0); BLOOD UREA NITROGEN 23 mg/dL (7-18); CALCIUM 7.6 mg/dL (8.5-10.1); CO2 30 mmol/L (21-32); CREATININE 0.6 mg/dL (0.7-1.3); GLUCOSE,RANDOM 89 mg/dL (74-106); SGOT/AST 23 U/L (15-37); SGPT/ALT 13 U/L (12-78); TOT PROT 6.7 g/dl (6.4-8.2)
--- NOTE | 2017-07-28 09:53 | CONSULT ---
- Consultation REQUESTING PROVIDER: CONSULT REQUEST: We have been asked to surgically evaluate this patient for sacral ulcer. PCP: Ronal Jenkins History Source: Medical Record Limitations to Obtaining History: Physical Impairment HPI: Called to evelyn 82 yo male with PMHx noted below. Patient is trach/vent dependent. Large foul smelling sacral ulcer. Has chronic indwelling catheter as well as chronic diarrhea (C.diff negative). PMHx: CVA, Dementia, Parkinson's, AFIB, CAD, Hyperlipdemia, COPD, GI Bleed, BPH , DVT, aspiration PNA, Hemiplegia PSHx: IVC Filter, Right inguinal hernia repair), Joint Replacement (pins in left hip), Tracheostomy, PEG Home Meds Albuterol 2.5/Ipratropium 0.5 [Duoneb -] 1 neb IH Q6H 03/20/16 Ascorbic Acid [Vitamin C -] 500 mg GT DAILY 03/20/16 Carbidopa/Levodopa [Carbidopa-Levodopa 25-100 Tab] 1 each GT BID 03/20/16 Aa/Pollock Shar,Whey/Arg/C/Zn/Cu [Lps Critical Care Liquid] 30 ml GT DAILY Donepezil HCl [Aricept -] 10 mg GT DAILY 07/09/16 Collagenase Clostridium Hist. [Santyl -] 1 applic TP DAILY tube 07/14/16 Bacitracin - [Bacitracin Topical Ointment -] 1 applic TP DAILY tube 09/05/16 Lactobacillus Acidophilus [Bacid -] 1 tab GT DAILY tab 09/05/16 Scopolamine Hydrobromide [Transderm-Scop -] 1 patch TD Q72H patch.td72 Acetaminophen [Tylenol .Regular Strength -] 650 mg GT ASDIR PRN 07/25/17 Albuterol 2.5/Ipratropium 0.5 [Duoneb -] 1 neb NEB Q4H 07/25/17 Calcium Carbonate/Vitamin D3 [Oyster Shell 500-Vit D3 200 Tb] 1 each GT DAILY Furosemide [Lasix -] 40 mg GT BID@0600,1400 07/25/17 Loperamide HCl [Loperamide] 2 mg GT Q6H 07/25/17 Oxycodone HCl [Roxicodone -] 5 mg GT Q6H 07/25/17 Potassium Chloride Oral Soln [KCl Oral Solution -] 40 meq GT DAILY 07/25/17 Ranitidine Oral Solution [Zantac Oral Solution -] 150 mg GT DAILY 07/25/17 Silver Sulfadiazine 1% Top Cr [Silvadene -] 1 applic TP DAILY 07/25/17 Warfarin Na [Coumadin -] 3.5 mg GT DAILY@1800 07/25/17 Zinc Sulfate [Orazinc] 220 mg GT BID 07/25/17 Allergies: Latex. NKDA. ROS: Unable to obtain due to patient's current medical status. PE: Gen: nad. Neck: trach on vent Sacrum: large stage 4 ulcer. Bone exposed. Necrotic tissue. Foul smelling. Undermining of tissue Last Vital Signs Temp Pulse Resp BP Pulse Ox 98.3 F 102 H 18 103/66 100 07/28/17 06:00 07/28/17 06:00 07/28/17 06:30 07/28/17 06:00 07/27/17 22:00 CBC, BMP 07/28/17 07:30 07/28/17 07:30 Microbiology 07/26/17 06:31 Decubiti Wound Culture - Final Pseudomonas Aeruginosa Non Lactose Fermenting Gnb#2 Pending Organism Pending Organism#2 07/25/17 11:18 Urine - Urine - Pseudomonas Aeruginosa, Group D Strep or Entero Coccus Problem List - Problems (1) Sacral decubitus ulcer Assessment/Plan: Patient could benefit from surgical debridement. Booked for OR on 07/30/17. Medical optimization/clearance Above plan discussed with Dr. Rosario and agrees Code(s): L89.159 - PRESSURE ULCER OF SACRAL REGION, UNSPECIFIED STAGE Qualifiers: Pressure ulcer stage: stage 3 Qualified Code(s): L89.153 - Pressure ulcer of sacral region, stage 3 Visit type - Case Type Case Type: ED Admission - New patient This patient is new to me today: Yes Date on this admission: 07/28/17
--- NOTE | 2017-07-28 10:40 | PN ---
Progress Note, Physician Chief Complaint: patient seen and examined on ventilator - Current Medication List Current Medications: Active Medications Acetaminophen (Tylenol -) 650 mg PO Q6H PRN PRN Reason: FEVER Last Admin: 07/27/17 15:13 Dose: 650 mg Albuterol/Ipratropium (Duoneb -) 1 amp NEB RQID [facility] Last Admin: 07/28/17 07:45 Dose: 1 amp Ascorbic Acid (Vitamin C -) 500 mg GT DAILY [facility] Last Admin: 07/27/17 11:13 Dose: 500 mg Calcium Carbonate/Cholecalciferol (Os-Frankie 500+D -) 1 tab GT DAILY [facility] Last Admin: 07/27/17 11:10 Dose: 1 tab Carbidopa/Levodopa (Sinemet 25/100 -) 1 each GT BID [facility] Last Admin: 07/27/17 22:04 Dose: 1 each Collagenase (Santyl -) 1 applic TP DAILY [facility] Last Admin: 07/27/17 11:12 Dose: Not Given Donepezil HCl (Aricept -) 10 mg GT HS [facility] Last Admin: 07/27/17 22:04 Dose: 10 mg Furosemide (Lasix -) 40 mg GT BID@0600,1400 [facility] Last Admin: 07/28/17 05:41 Dose: 40 mg Lactated Ringer's (Lactated Ringers Solution) 1,000 ml in 1,000 mls @ 75 mls/ hr IV ASDIR [facility] Last Admin: 07/27/17 15:14 Dose: 75 mls/hr Piperacillin Sod/Tazobactam (Sod 3.375 gm/ Dextrose) 100 mls @ 200 mls/hr IVPB Q8H-IV [facility] Last Admin: 07/28/17 02:20 Dose: 200 mls/hr Lactobacillus Acidophilus (Bacid -) 1 tab GT DAILY [facility] Last Admin: 07/27/17 11:09 Dose: 1 tab Loperamide HCl (Imodium Liquid -) 2 mg GT Q6H PRN PRN Reason: DIARRHEA Last Admin: 07/27/17 16:31 Dose: 2 mg Metronidazole (Flagyl -) 500 mg PO TID [facility] Last Admin: 07/28/17 05:41 Dose: 500 mg Nystatin (Nystop Powder -) 1 applic TP DAILY [facility] Oxycodone HCl (Roxicodone -) 5 mg GT Q6H PRN PRN Reason: PAIN LEVEL 6-10 Last Admin: 07/28/17 00:58 Dose: 5 mg Potassium Chloride (Potassium Chloride Oral Liquid) 40 meq GT DAILY [facility] Last Admin: 07/27/17 11:10 Dose: 40 meq Ranitidine HCl (Zantac Oral Solution -) 150 mg GT DAILY [facility] Last Admin: 07/27/17 11:14 Dose: 150 mg Scopolamine HBr (Transderm-Scop -) 1 patch TD Q72H [facility] Last Admin: 07/26/17 01:10 Dose: Not Given Silver Sulfadiazine (Silvadene -) 1 applic TP DAILY [facility] Last Admin: 07/27/17 11:13 Dose: 1 applic Warfarin Sodium 2.5 mg/ (Warfarin Sodium 1 mg) 3.5 mg GT DAILY@1800 [facility] Last Admin: 07/27/17 19:25 Dose: 3.5 mg Zinc Sulfate (Orazinc -) 220 mg GT BID [facility] Last Admin: 07/27/17 22:04 Dose: 220 mg - Objective Vital Signs: Vital Signs Temperature 98.3 F 07/28/17 06:00 Pulse Rate 102 H 07/28/17 06:00 Respiratory Rate 18 07/28/17 06:30 Blood Pressure 103/66 07/28/17 06:00 O2 Sat by Pulse Oximetry (%) 100 07/27/17 22:00 Constitutional: Yes: Calm Cardiovascular: Yes: Pulse Irregular, S1, S2 Respiratory: Yes: Mechanically Ventilated Gastrointestinal: Yes: Soft, Other (g tube) Genitourinary: Yes: Olson Present Edema: Yes Neurological: Yes: Other (eye closed) Labs: CBC, BMP 07/28/17 07:30 07/28/17 07:30 INR, PTT INR 2.20 (0.82-1.09) H 07/28/17 07:30 Problem List - Problems (1) Sacral decubitus ulcer Assessment/Plan: collagenase wound care frequent turn and position plan for debridement on cardiology and pulm clearacne for OR on Code(s): L89.159 - PRESSURE ULCER OF SACRAL REGION, UNSPECIFIED STAGE Qualifiers: Pressure ulcer stage: stage 3 Qualified Code(s): L89.153 - Pressure ulcer of sacral region, stage 3 (2) Chronic diarrhea Assessment/Plan: seen by GI stool studies c diff negative Code(s): K52.9 - NONINFECTIVE GASTROENTERITIS AND COLITIS, UNSPECIFIED (3) A-fib Assessment/Plan: on coumadin inr 2-3 will probably need to hold coumadin and change to heparin drip prior to debridment Code(s): I48.91 - UNSPECIFIED ATRIAL FIBRILLATION Qualifiers: Atrial fibrillation type: chronic Qualified Code(s): I48.2 - Chronic atrial fibrillation (4) Dementia Assessment/Plan: aricept Code(s): F03.90 - UNSPECIFIED DEMENTIA WITHOUT BEHAVIORAL DISTURBANCE Qualifiers: Dementia type: Parkinson's disease Dementia behavioral disturbance: with behavioral disturbance Qualified Code(s): G20 - Parkinson's disease (5) PEG (percutaneous endoscopic gastrostomy) adjustment/replacement/removal Assessment/Plan: gastrograffin study ordered to r/o outlet obstruction- no gastric outlet obstruction no small bowel obstruction restart tube feeds Code(s): Z43.1 - ENCOUNTER FOR ATTENTION TO GASTROSTOMY (6) Leukocytosis Assessment/Plan: ID on board cultures pending on iv antibiotic Code(s): D72.829 - ELEVATED WHITE BLOOD CELL COUNT, UNSPECIFIED
--- NOTE | 2017-07-28 10:45 | CON.CARD ---
Consult Consult Specialty:: Cardiology Referred by:: Dr. Ray Reason for Consultation:: Preop for sacral wound debridement - History of Present Illness Chief Complaint: Leukocytosis History of Present Illness: 82 M with chronic resp failure s/p trach, htn, hld, cad, cva, chronic Afib on coumadin, chronic combined systolic/diastolic chf, parkinsons admitted fpr several days now with elevation in WBC and infected sacral decub needing debridment. He cannot provide any history. The medical record was reviewed. 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: CVA, Dementia, Parkinson's Cardio/Vascular: Yes: AFIB (paroxysmal), CAD, Deep Vein Thrombosis, Hyperlipdemia Pulmonary: Yes: COPD, Pneumonia (repeated aspiration pneumonias, Pseudomonas pneumonia 07/21) Gastrointestinal: Yes: Other (ischemic colitis and sigmoid adenoma removed , gastric cardia polyps) Renal/: Yes: BPH, Renal Calculi Infectious Disease: Yes: Other (, aspiration pneumonia in the past) Psych: Yes: Depression Musculoskeletal: Yes: Hemiplegia - Past Surgical History Past Surgical History: Yes: Colonoscopy, Hernia Repair (right inguinal hernia repair), Upper Endoscopy Additional Surgical History: tracheostomy. G tube. left ear skin cancer excision. 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 History of Recent Travel: No Home Medications - Allergies Allergies/Adverse Reactions: Allergies Allergy/AdvReac Type Severity Reaction Status Date / Time latex Allergy Verified 07/25/17 21:51 No Known Drug Allergies Allergy Verified 07/25/17 21:51 - Home Medications Home Medications: Ambulatory Orders Albuterol 2.5/Ipratropium 0.5 [Duoneb -] 1 neb IH Q6H 03/20/16 Ascorbic Acid [Vitamin C -] 500 mg GT DAILY 03/20/16 Carbidopa/Levodopa [Carbidopa-Levodopa 25-100 Tab] 1 each GT BID 03/20/16 Aa/[place]/Arg/C/Zn/Cu [Lps Critical Care Liquid] 30 ml GT DAILY Donepezil HCl [Aricept -] 10 mg GT DAILY 07/09/16 Collagenase Clostridium Hist. [Santyl -] 1 applic TP DAILY tube 07/14/16 Bacitracin - [Bacitracin Topical Ointment -] 1 applic TP DAILY tube 09/05/16 Lactobacillus Acidophilus [Bacid -] 1 tab GT DAILY tab 09/05/16 Scopolamine Hydrobromide [Transderm-Scop -] 1 patch TD Q72H patch.td72 Acetaminophen [Tylenol .Regular Strength -] 650 mg GT ASDIR PRN 07/25/17 Albuterol 2.5/Ipratropium 0.5 [Duoneb -] 1 neb NEB Q4H 07/25/17 Calcium Carbonate/Vitamin D3 [Oyster Shell 500-Vit D3 200 Tb] 1 each GT DAILY Furosemide [Lasix -] 40 mg GT BID@0600,1400 07/25/17 Loperamide HCl [Loperamide] 2 mg GT Q6H 07/25/17 Oxycodone HCl [Roxicodone -] 5 mg GT Q6H 07/25/17 Potassium Chloride Oral Soln [KCl Oral Solution -] 40 meq GT DAILY 07/25/17 Ranitidine Oral Solution [Zantac Oral Solution -] 150 mg GT DAILY 07/25/17 Silver Sulfadiazine 1% Top Cr [Silvadene -] 1 applic TP DAILY 07/25/17 Warfarin Na [Coumadin -] 3.5 mg GT DAILY@1800 07/25/17 Zinc Sulfate [Orazinc] 220 mg GT BID 07/25/17 Family Disease History - Family Disease History Family History: Unremarkable (not pertinent to this presentation) Review of Systems Findings/Remarks: Cannot provide history, chronically vented with advanced Parkinson's disease - Review of Systems Constitutional: denies: No Symptoms, Chills, Diaphoresis, Fever, Lethargy, Loss of Appetite, Malaise, Night Sweats, Unintentional Wgt. Loss, Weakness, Other Eyes: denies: No Symptoms, Blind Spots, Blurred Vision, Double Vision, Eye Pain , Floaters, Photophobia, Recent Change in Vision, Other HENT: denies: No Symptoms, Difficult Swallowing, Ear Discharge, Ear Pain, Epistaxis, Gingival Bleeding, Hearing Loss, Mouth Swelling, Nasal Congestion, Ocular Prosthesis, Throat Pain, Toothache, Ringing in Ears, Other Neck: denies: No Symptoms, Decreased ROM, Lumps, Pain on Movement, Stiffness, Swollen Glands, Tenderness, Other Cardiovascular: denies: No Symptoms, Chest Pain, Edema, Palpitations, Shortness of Breath, Other Respiratory: denies: No Symptoms, Cough, Exercise Intolerance, Hemoptysis, Orthopnea, PND, Snoring, SOB, SOB on Exertion, Wheezing, Other Gastrointestinal: denies: No Symptoms, Abdominal Pain, Bloating, Constipation, Diarrhea, Dysphagia, Indigestion, Melena, Nausea, Rectal Bleeding, Vomiting, Vomiting Blood, Other Genitourinary: denies: No Symptoms, Burning, Discharge, Dysuria, Flank Pain, Frequency, Hematuria, Incontinence, Lesions, Menses, Pain, Testicular Mass, Testicular Pain, Testicular Swelling, Urgency, Vaginal Bleeding, Other Breasts: denies: No Symptoms Reported, See HPI, Breast Implants, Discharge from Nipple, Lumps, Pain, Skin Changes, Other Musculoskeletal: denies: No Symptoms, Back Pain, Crepitus, Decreased ROM, Extremity Pain, Joint Pain, Joint Swelling, Muscle Pain, Muscle Cramps, Muscle Weakness, Other Integumentary: denies: No Symptoms, Blister, Bruising, Change in Color, Eczema, Erythema, Incision, Lesions, Lump, Pallor, Pruritis, Rash, Wound, Other Neurological: denies: No Symptoms, Change in LOC, Change in Speech, Confusion, Dizziness, Headache, Incoordination, Numbness, Parasthesia, Pre-Existing Deficit , Seizure, Syncope, Tremors, Unsteady Gait, Weakness, Other Endocrine: denies: No Symptoms, Excessive Sweating, Flushing, Increased Hunger, Increased Thirst, Intolerance to Cold, Intolerance to Heat, Unexplained Weight Gain, Unexplained Weight Loss, Other Hematology/Lymphatic: denies: No Symptoms, Easily Bruised, Excessive Bleeding, Swollen Glands, Other Psychiatric: denies: No Symptoms, Altered Sleep Pattern, Anxiety, Depression, Hallucinations, Panic, Paranoia, Suicidal, Other - Risk Factors Known Risk Factors: Yes: Other (CAD) Vital Signs: Vital Signs Temperature 98.3 F 07/28/17 06:00 Pulse Rate 102 H 07/28/17 06:00 Respiratory Rate 18 07/28/17 06:30 Blood Pressure 103/66 07/28/17 06:00 O2 Sat by Pulse Oximetry (%) 100 07/27/17 22:00 Constitutional: Yes: No Distress HENT: Yes: Other (+ ETT) Respiratory: Yes: CTA Bilaterally Gastrointestinal: Yes: Soft Cardiovascular: Yes: Pulse Irregular JVD: No Carotid Bruit: No Heart Sounds: Yes: S1, S2 (irregular) Edema: No - Other Data Labs, Other Data: CBC, BMP 07/28/17 07:30 07/28/17 07:30 INR, PTT INR 2.20 (0.82-1.09) H 07/28/17 07:30 Afib at 99bpm, no pathological Q waves, no acute ST changes Echo: Report Reviewed Ejection Fraction %: LVEF > or = 40 % Imaging - Results X-ray: Image Reviewed EKG: Image Reviewed Problem List - Problems (1) Sacral decubitus ulcer Assessment/Plan: -This is now the most pressing issue for this bedbound, chronically vented patient. Needs debridment to clear current infection and prevent future infections, sepsis, bacteremia. -There are currently no absolute cardiac contraindications to proceed with debridement (AF is controlled, he is relatively euvolemic and there is no history or murmur to suggest severe ). Code(s): L89.159 - PRESSURE ULCER OF SACRAL REGION, UNSPECIFIED STAGE Qualifiers: Pressure ulcer stage: stage 3 Qualified Code(s): L89.153 - Pressure ulcer of sacral region, stage 3 (2) A-fib Assessment/Plan: -Hold coumadin and bridge to surgery with Heparin gtts when INR < 2 Code(s): I48.91 - UNSPECIFIED ATRIAL FIBRILLATION Qualifiers: Atrial fibrillation type: chronic Qualified Code(s): I48.2 - Chronic atrial fibrillation (3) Acute on chronic diastolic CHF (congestive heart failure) Assessment/Plan: -Currently relatively euvolemic, keep Is= Os. -Will follow Code(s): I50.33 - ACUTE ON CHRONIC DIASTOLIC (CONGESTIVE) HEART FAILURE
[2017-07-28] MEDS: CALCIUM 500MG/VIT-D 200 UNITS COMBO TABLET (FP) GT SCH (11:58)
[2017-07-28] MEDS: ZINC SULFATE 220 MG CAPSULE (FP) GT SCH ×2 (11:59→22:11)
[2017-07-28] MEDS: ASCORBIC ACID 500 MG TABLET (FP) GT SCH (11:59)
[2017-07-28] MEDS: POTASSIUM CHLORIDE ORAL LIQUID 20 MEQ/15 ML GT SCH (11:59)
[2017-07-28] MEDS: CARBIDOPA/LEVODOPA 25/100 TABLET (FP) GT SCH ×2 (11:59→22:11)
[2017-07-28] MEDS: RANITIDINE HCL 150 MG/10 ML UNIT-DOSE GT SCH (11:59)
[2017-07-28] MEDS: LACTOBACILLUS ACIDOPHILUS 1 EACH TAB (FP) GT SCH (11:59)
--- NOTE | 2017-07-28 12:27 | PN ---
Progress Note (short form) - Note Progress Note: PULMONARY Vented on volume assist control with 40% FiO2. Eyes open but not tracking. Last Vital Signs Temp Pulse Resp BP Pulse Ox 98.3 F 102 H 12 103/66 100 07/28/17 06:00 07/28/17 06:00 07/28/17 10:25 07/28/17 06:00 07/27/17 22:00 Gen: vented, poorly responsive Heart: tachycardic Lung: scattered rhonchi Abd: soft, nontender Ext: + edema CBC, BMP 07/28/17 07:30 07/28/17 07:30 Active Medications Acetaminophen (Tylenol -) 650 mg PO Q6H PRN PRN Reason: FEVER Last Admin: 07/27/17 15:13 Dose: 650 mg Albuterol/Ipratropium (Duoneb -) 1 amp NEB RQID [facility] Last Admin: 07/28/17 11:20 Dose: 1 amp Ascorbic Acid (Vitamin C -) 500 mg GT DAILY [facility] Last Admin: 07/28/17 11:59 Dose: 500 mg Calcium Carbonate/Cholecalciferol (Os-Frankie 500+D -) 1 tab GT DAILY [facility] Last Admin: 07/28/17 11:58 Dose: 1 tab Carbidopa/Levodopa (Sinemet 25/100 -) 1 each GT BID [facility] Last Admin: 07/28/17 11:59 Dose: 1 each Collagenase (Santyl -) 1 applic TP DAILY [facility] Last Admin: 07/27/17 11:12 Dose: Not Given Donepezil HCl (Aricept -) 10 mg GT HS [facility] Last Admin: 07/27/17 22:04 Dose: 10 mg Furosemide (Lasix -) 40 mg GT BID@0600,1400 [facility] Last Admin: 07/28/17 05:41 Dose: 40 mg Lactated Ringer's (Lactated Ringers Solution) 1,000 ml in 1,000 mls @ 75 mls/ hr IV ASDIR [facility] Last Admin: 07/27/17 15:14 Dose: 75 mls/hr Piperacillin Sod/Tazobactam (Sod 3.375 gm/ Dextrose) 100 mls @ 200 mls/hr IVPB Q8H-IV [facility] Last Admin: 07/28/17 10:53 Dose: 200 mls/hr Lactobacillus Acidophilus (Bacid -) 1 tab GT DAILY [facility] Last Admin: 07/28/17 11:59 Dose: 1 tab Loperamide HCl (Imodium Liquid -) 2 mg GT Q6H PRN PRN Reason: DIARRHEA Last Admin: 07/27/17 16:31 Dose: 2 mg Metronidazole (Flagyl -) 500 mg PO TID [facility] Last Admin: 07/28/17 05:41 Dose: 500 mg Nystatin (Nystop Powder -) 1 applic TP DAILY [facility] Oxycodone HCl (Roxicodone -) 5 mg GT Q6H PRN PRN Reason: PAIN LEVEL 6-10 Last Admin: 07/28/17 00:58 Dose: 5 mg Potassium Chloride (Potassium Chloride Oral Liquid) 40 meq GT DAILY [facility] Last Admin: 07/28/17 11:59 Dose: 40 meq Ranitidine HCl (Zantac Oral Solution -) 150 mg GT DAILY [facility] Last Admin: 07/28/17 11:59 Dose: 150 mg Scopolamine HBr (Transderm-Scop -) 1 patch TD Q72H [facility] Last Admin: 07/26/17 01:10 Dose: Not Given Silver Sulfadiazine (Silvadene -) 1 applic TP DAILY [facility] Last Admin: 07/27/17 11:13 Dose: 1 applic Warfarin Sodium 2.5 mg/ (Warfarin Sodium 1 mg) 3.5 mg GT DAILY@1800 [facility] Last Admin: 07/27/17 19:25 Dose: 3.5 mg Zinc Sulfate (Orazinc -) 220 mg GT BID [facility] Last Admin: 07/28/17 11:59 Dose: 220 mg A/P Chronic Respiratory Failure s/p Tracheostomy Sacral Decubitus Ulcer Atrial Fibrillaion Parkinsons Dementia - continue antibiotics - wound care - for debridement, no pulmonary contraindications as pt vented - rate controlled - continue anticoagulation - enteral feeds - not a candidate for weaning at this time due to poor mental status
[2017-07-28] MEDS: LACTATED RINGERS SOLUTION 1,000 ML/1,000 ML INFUS.BAG IV SCH (12:30)
--- NOTE | 2017-07-28 13:25 | PN ---
Progress Note (short form) - Note Progress Note: hold coumadin and let the iNR drift down once INR is < 2 then will start heparin drip patient had [place] cath which was changed to bauman cath in ER Problem List - Problems (1) Sacral decubitus ulcer Code(s): L89.159 - PRESSURE ULCER OF SACRAL REGION, UNSPECIFIED STAGE Qualifiers: Pressure ulcer stage: stage 3 Qualified Code(s): L89.153 - Pressure ulcer of sacral region, stage 3 (2) Chronic diarrhea Code(s): K52.9 - NONINFECTIVE GASTROENTERITIS AND COLITIS, UNSPECIFIED (3) A-fib Code(s): I48.91 - UNSPECIFIED ATRIAL FIBRILLATION Qualifiers: Atrial fibrillation type: chronic Qualified Code(s): I48.2 - Chronic atrial fibrillation (4) Dementia Code(s): F03.90 - UNSPECIFIED DEMENTIA WITHOUT BEHAVIORAL DISTURBANCE Qualifiers: Dementia type: Parkinson's disease Dementia behavioral disturbance: with behavioral disturbance Qualified Code(s): G20 - Parkinson's disease (5) PEG (percutaneous endoscopic gastrostomy) adjustment/replacement/removal Code(s): Z43.1 - ENCOUNTER FOR ATTENTION TO GASTROSTOMY (6) Leukocytosis Code(s): D72.829 - ELEVATED WHITE BLOOD CELL COUNT, UNSPECIFIED
--- NOTE | 2017-07-28 14:04 | PN ---
Progress Note (short form) - Note Progress Note: unresponsive trach to vent NAD seen by surgery- debridement planned Vital Signs Period Temp Pulse Resp BP Sys/Limon Pulse Ox Last 24 Hr 98.3 F-99.4 F 95-109 12-26 103-120/64-84 98-100 cor-rrr lungs decreased bs at bses abd soft,nt ext pedal edema unchanged +bauman ++rectal tube CBC, BMP 07/28/17 07:30 07/28/17 07:30 Microbiology 07/26/17 06:31 Decubiti Gram Stain - Final 07/26/17 06:31 Decubiti Wound Culture - Preliminary Pseudomonas Aeruginosa Non Lactose Fermenting Gnb#2 Presumptive Mrsa (Pbp2a Pos) Group D Strep Or Entero Coccus Pending Organism Proteus Species 07/25/17 11:18 Blood - Peripheral Venous Blood Culture - Preliminary NO GROWTH OBTAINED AFTER 72 HOURS, INCUBATION TO CONTINUE FOR 2 DAYS. 07/25/17 11:18 Blood - Peripheral Venous Blood Culture - Preliminary NO GROWTH OBTAINED AFTER 72 HOURS, INCUBATION TO CONTINUE FOR 2 DAYS. 07/25/17 11:18 Urine - Urine - Catheterized Urine Culture - Preliminary Pseudomonas Aeruginosa Vr Ec Faecalis 07/26/17 06:00 Stool Clostridium difficile (PCR) - Preliminary 07/27/17 03:20 Stool Clostridium difficile Antigen (FAVIAN) - Final 07/27/17 03:20 Stool Clostridium difficile Toxin Assay - Final a/p leukoctosis-infected sacral decub- for debridement continue zosyn, add vancomycin suspect urine culture is from chronic bauman- would not treat at this time cdiff is negative GI f/u noted Problem List - Problems (1) Leukocytosis Code(s): D72.829 - ELEVATED WHITE BLOOD CELL COUNT, UNSPECIFIED (2) Diarrhea Code(s): R19.7 - DIARRHEA, UNSPECIFIED Qualifiers: Diarrhea type: unspecified type Qualified Code(s): R19.7 - Diarrhea, unspecified (3) Sacral decubitus ulcer Code(s): L89.159 - PRESSURE ULCER OF SACRAL REGION, UNSPECIFIED STAGE Qualifiers: Pressure ulcer stage: stage 3 Qualified Code(s): L89.153 - Pressure ulcer of sacral region, stage 3 (4) Chronic respiratory failure Code(s): J96.10 - CHRONIC RESPIRATORY FAILURE, UNSP W HYPOXIA OR HYPERCAPNIA Qualifiers: Respiratory failure complication: hypoxia Qualified Code(s): J96.11 - Chronic respiratory failure with hypoxia (5) Dementia Code(s): F03.90 - UNSPECIFIED DEMENTIA WITHOUT BEHAVIORAL DISTURBANCE Qualifiers: Dementia type: Parkinson's disease Dementia behavioral disturbance: with behavioral disturbance Qualified Code(s): G20 - Parkinson's disease
[2017-07-28] MEDS ORDERED: VANCOMYCIN 1,500 MG in DEXTROSE 5%-WATER - 500 ML IVPB SCH (14:15)
[2017-07-28] MEDS: NYSTATIN POWDER 100,000 UNITS/GM - 15 GM TOPICAL POWDER TP SCH (14:24)
[2017-07-28] MEDS: COLLAGENASE CLOSTRIDIUM HIST. 30 GRAMS TUBE TP SCH (14:30)
[2017-07-28] MEDS: SILVER SULFADIAZINE 1% TOP CREAM 50 GM JAR TP SCH (17:00)
--- NOTE | 2017-07-28 17:55 | PN ---
GI Progress Note Subjective: GI NOte: CT scan the the PEG is in good position and that there is no bowel obstruction. No rectal bleeding. Anticipating debridement of sacral decubitus. Discussed situation with his last night. - Objective Vital Signs: Vital Signs Temperature 98.7 F 07/28/17 13:49 Pulse Rate 109 H 07/28/17 13:49 Respiratory Rate 15 07/28/17 16:00 Blood Pressure 109/71 07/28/17 13:49 O2 Sat by Pulse Oximetry (%) 100 07/27/17 22:00 Constitutional: Other (Intubated, not responsive) Gastrointestinal Inspection: Yes: Other (PEG site clean) ...Auscultate: Yes: Normoactive Bowel Sounds ...Palpate: Yes: Soft, Other (nontender) Labs: CBC, BMP 07/28/17 07:30 07/28/17 07:30 INR, PTT INR 2.20 (0.82-1.09) H 07/28/17 07:30 Laboratory Tests 07/28/17 07:30 Albumin 1.7 L Problem List - Problems (1) Chronic diarrhea Assessment/Plan: Suspect pseudoobstruction and overflow diarrhea but given low albumin will check for pancreatic insufficiency Code(s): K52.9 - NONINFECTIVE GASTROENTERITIS AND COLITIS, UNSPECIFIED (2) PEG (percutaneous endoscopic gastrostomy) adjustment/replacement/removal Assessment/Plan: G tube in good position. Continue feedings. Code(s): Z43.1 - ENCOUNTER FOR ATTENTION TO GASTROSTOMY (3) Hypoalbuminemia Code(s): E88.09 - OTH DISORDERS OF PLASMA-PROTEIN METABOLISM, NEC
[2017-07-28] MEDS: AMINO ACIDS/PROTEIN HYDROLYS 30 ML LIQUID.PKT GT SCH (18:07)
[2017-07-28] MEDS: VANCOMYCIN 1,500 MG in SODIUM CHLORIDE 500 ML IVPB SCH (20:16)
[2017-07-28] MEDS: DONEPEZIL HCL 10 MG TABLET (FP) GT SCH (22:11)
[2017-07-29] MEDS: SCOPOLAMINE HYDROBROMIDE 1 PATCH PATCH.TD72 TD SCH (00:26)
[2017-07-29] MEDS: PIPERACILLIN/TAZOB 3.375 GM 3.375 GM in DEXTROSE 5%-WATER - 100 ML IVPB SCH ×2 (02:43→11:21)
[2017-07-29] MEDS: FUROSEMIDE 40 MG TABLET (FP) GT SCH ×4 (06:05→15:04)
[2017-07-29] MEDS: metroNIDAZOLE 250 MG TABLET PO SCH ×3 (06:05→22:50)
[2017-07-29] MEDS: ALBUTEROL SO4 2.5/IPRATROPIUM 0.5 INH SOL 3 ML VIAL.NEB. NEB SCH ×4 (08:25→20:40)
[2017-07-29] MEDS: AMINO ACIDS/PROTEIN HYDROLYS 30 ML LIQUID.PKT GT SCH ×2 (08:32→18:49)
[2017-07-29 09:25] LABS: INR 2.58 (0.82-1.09); PROTHROMBIN TIME (PATIENT) 29.2 SEC (9.98-11.88)
--- NOTE | 2017-07-29 09:33 | PN ---
Progress Note (short form) - Note Progress Note: unresponsive trach to vent NAD seen by surgery- debridement planned Vital Signs Period Temp Pulse Resp BP Sys/Limon Pulse Ox Last 24 Hr 97.3 F-99.8 F 81-109 12-16 102-112/58-71 NAD lungs decreased bs at bses abd soft,nt ext pedal edema unchanged +bauman +rectal tube +sacral ulcer CBC, BMP 07/28/17 07:30 07/28/17 07:30 Microbiology 07/25/17 11:18 Urine - Urine - Catheterized Urine Culture - Final Pseudomonas Aeruginosa Vr Ec Faecalis 07/26/17 06:31 Decubiti Gram Stain - Final 07/26/17 06:31 Decubiti Wound Culture - Preliminary Pseudomonas Aeruginosa Non Lactose Fermenting Gnb#2 Presumptive Mrsa (Pbp2a Pos) Group D Strep Or Entero Coccus Pending Organism Proteus Species 07/25/17 11:18 Blood - Peripheral Venous Blood Culture - Preliminary NO GROWTH OBTAINED AFTER 72 HOURS, INCUBATION TO CONTINUE FOR 2 DAYS. 07/25/17 11:18 Blood - Peripheral Venous Blood Culture - Preliminary NO GROWTH OBTAINED AFTER 72 HOURS, INCUBATION TO CONTINUE FOR 2 DAYS. a/p leukoctosis-infected sacral decub- for debridement in am plan to continue antiibotics for another 24-48 hours continue zosyn, and vancomycin suspect urine culture is from chronic bauman- would not treat at this time cdiff is negative GI f/u noted for debridement in am Problem List - Problems (1) Leukocytosis Code(s): D72.829 - ELEVATED WHITE BLOOD CELL COUNT, UNSPECIFIED (2) Diarrhea Code(s): R19.7 - DIARRHEA, UNSPECIFIED Qualifiers: Diarrhea type: unspecified type Qualified Code(s): R19.7 - Diarrhea, unspecified (3) Sacral decubitus ulcer Code(s): L89.159 - PRESSURE ULCER OF SACRAL REGION, UNSPECIFIED STAGE Qualifiers: Pressure ulcer stage: stage 3 Qualified Code(s): L89.153 - Pressure ulcer of sacral region, stage 3 (4) Chronic respiratory failure Code(s): J96.10 - CHRONIC RESPIRATORY FAILURE, UNSP W HYPOXIA OR HYPERCAPNIA Qualifiers: Respiratory failure complication: hypoxia Qualified Code(s): J96.11 - Chronic respiratory failure with hypoxia (5) Dementia Code(s): F03.90 - UNSPECIFIED DEMENTIA WITHOUT BEHAVIORAL DISTURBANCE Qualifiers: Dementia type: Parkinson's disease Dementia behavioral disturbance: with behavioral disturbance Qualified Code(s): G20 - Parkinson's disease
--- NOTE | 2017-07-29 09:45 | PN ---
Progress Note, Physician Chief Complaint: intubated chronically and nonverbal - Current Medication List Current Medications: Active Medications Acetaminophen (Tylenol -) 650 mg PO Q6H PRN PRN Reason: FEVER Last Admin: 07/27/17 15:13 Dose: 650 mg Albuterol/Ipratropium (Duoneb -) 1 amp NEB RQID [facility] Last Admin: 07/29/17 08:25 Dose: 1 amp Amino Acids (Prosource No Carb Liquid Pkt) 30 ml GT BID@0800,1730 [facility] Last Admin: 07/29/17 08:32 Dose: 30 ml Ascorbic Acid (Vitamin C -) 500 mg GT DAILY [facility] Last Admin: 07/28/17 11:59 Dose: 500 mg Calcium Carbonate/Cholecalciferol (Os-Frankie 500+D -) 1 tab GT DAILY [facility] Last Admin: 07/28/17 11:58 Dose: 1 tab Carbidopa/Levodopa (Sinemet 25/100 -) 1 each GT BID [facility] Last Admin: 07/28/17 22:11 Dose: 1 each Collagenase (Santyl -) 1 applic TP DAILY [facility] Last Admin: 07/28/17 14:30 Dose: 1 applic Donepezil HCl (Aricept -) 10 mg GT HS [facility] Last Admin: 07/28/17 22:11 Dose: 10 mg Furosemide (Lasix -) 40 mg GT BID@0600,1400 [facility] Last Admin: 07/29/17 06:05 Dose: 40 mg Piperacillin Sod/Tazobactam (Sod 3.375 gm/ Dextrose) 100 mls @ 200 mls/hr IVPB Q8H-IV [facility] Last Admin: 07/29/17 02:43 Dose: 200 mls/hr Vancomycin HCl 1,500 mg/ (Sodium Chloride) 500 mls @ 250 mls/hr IVPB Q24H [facility] PRN Reason: Protocol Last Admin: 07/28/17 20:16 Dose: 250 mls/hr Lactobacillus Acidophilus (Bacid -) 1 tab GT DAILY [facility] Last Admin: 07/28/17 11:59 Dose: 1 tab Loperamide HCl (Imodium Liquid -) 2 mg GT Q6H PRN PRN Reason: DIARRHEA Last Admin: 07/27/17 16:31 Dose: 2 mg Metronidazole (Flagyl -) 500 mg PO TID [facility] Last Admin: 07/29/17 06:05 Dose: 500 mg Nystatin (Nystop Powder -) 1 applic TP DAILY [facility] Last Admin: 07/28/17 14:24 Dose: 1 applic Potassium Chloride (Potassium Chloride Oral Liquid) 40 meq GT DAILY [facility] Last Admin: 07/28/17 11:59 Dose: 40 meq Ranitidine HCl (Zantac Oral Solution -) 150 mg GT DAILY [facility] Last Admin: 07/28/17 11:59 Dose: 150 mg Scopolamine HBr (Transderm-Scop -) 1 patch TD Q72H [facility] Last Admin: 07/29/17 00:26 Dose: 1 patch Silver Sulfadiazine (Silvadene -) 1 applic TP DAILY [facility] Last Admin: 07/28/17 17:00 Dose: Not Given Zinc Sulfate (Orazinc -) 220 mg GT BID [facility] Last Admin: 07/28/17 22:11 Dose: 220 mg - Objective Vital Signs: Vital Signs Temperature 99.8 F H 07/29/17 06:00 Pulse Rate 93 H 07/29/17 06:00 Respiratory Rate 16 07/29/17 06:33 Blood Pressure 102/65 07/29/17 06:00 O2 Sat by Pulse Oximetry (%) 100 07/27/17 22:00 Constitutional: Yes: Calm Eyes: Yes: Conjunctiva Clear Cardiovascular: Yes: Pulse Irregular Respiratory: Yes: Rhonchi Gastrointestinal: Yes: Soft Edema: No Labs: CBC, BMP 07/28/17 07:30 07/28/17 07:30 INR, PTT INR 2.58 (0.82-1.09) H 07/29/17 07:30 Laboratory Tests 07/28/17 07/29/17 07:30 07:30 WBC 13.9 H Hgb 10.0 L Plt Count 387 INR 2.58 H Problem List - Problems (1) Sacral decubitus ulcer Code(s): L89.159 - PRESSURE ULCER OF SACRAL REGION, UNSPECIFIED STAGE Qualifiers: Pressure ulcer stage: stage 3 Qualified Code(s): L89.153 - Pressure ulcer of sacral region, stage 3 (2) A-fib Code(s): I48.91 - UNSPECIFIED ATRIAL FIBRILLATION Qualifiers: Atrial fibrillation type: chronic Qualified Code(s): I48.2 - Chronic atrial fibrillation (3) Acute on chronic diastolic CHF (congestive heart failure) Code(s): I50.33 - ACUTE ON CHRONIC DIASTOLIC (CONGESTIVE) HEART FAILURE Assessment/Plan Problem List - Problems (1) Sacral decubitus ulcer Assessment/Plan: -This is now the most pressing issue for this bedbound, chronically vented patient. Needs debridment to clear current infection and prevent future infections, sepsis, bacteremia. -There are currently no absolute cardiac contraindications to proceed with debridement (AF is controlled, he is relatively euvolemic and there is no history or murmur to suggest severe ). Code(s): L89.159 - PRESSURE ULCER OF SACRAL REGION, UNSPECIFIED STAGE Qualifiers: Pressure ulcer stage: stage 3 Qualified Code(s): L89.153 - Pressure ulcer of sacral region, stage 3 (2) A-fib Assessment/Plan: -Hold coumadin and bridge to surgery with Heparin gtts when INR < 2 Code(s): I48.91 - UNSPECIFIED ATRIAL FIBRILLATION Qualifiers: Atrial fibrillation type: chronic Qualified Code(s): I48.2 - Chronic atrial fibrillation (3) Acute on chronic diastolic CHF (congestive heart failure) Assessment/Plan: -Currently relatively euvolemic, keep Is= Os. -Will follow Code(s): I50.33 - ACUTE ON CHRONIC DIASTOLIC (CONGESTIVE) HEART FAILURE
[2017-07-29] MEDS ORDERED: PT OWN MED DRAWER 7, Y5N ONE ×3 (11:19→18:45)
[2017-07-29] MEDS: ZINC SULFATE 220 MG CAPSULE (FP) GT SCH ×2 (11:22→22:50)
[2017-07-29] MEDS: LACTOBACILLUS ACIDOPHILUS 1 EACH TAB (FP) GT SCH (11:22)
[2017-07-29] MEDS: RANITIDINE HCL 150 MG/10 ML UNIT-DOSE GT SCH (11:22)
[2017-07-29] MEDS: POTASSIUM CHLORIDE ORAL LIQUID 20 MEQ/15 ML GT SCH (11:22)
[2017-07-29] MEDS: CARBIDOPA/LEVODOPA 25/100 TABLET (FP) GT SCH ×2 (11:23→22:50)
[2017-07-29] MEDS: ASCORBIC ACID 500 MG TABLET (FP) GT SCH (11:23)
[2017-07-29] MEDS: NYSTATIN POWDER 100,000 UNITS/GM - 15 GM TOPICAL POWDER TP SCH (12:12)
[2017-07-29] MEDS: CALCIUM 500MG/VIT-D 200 UNITS COMBO TABLET (FP) GT SCH (12:14)
--- NOTE | 2017-07-29 13:28 | PN ---
Progress Note (short form) - Note Progress Note: Vascular Surgery For sacral debridement srinivasa. NPO past midnight. Gutierrez Rosario DO
--- NOTE | 2017-07-29 13:48 | PN ---
Progress Note, Physician Chief Complaint: Sepsis History of Present Illness: NAD Chronically ill on mechanical vent -seen by ID, GI and vascular going for debridement in AM - Current Medication List Current Medications: Active Medications Acetaminophen (Tylenol -) 650 mg PO Q6H PRN PRN Reason: FEVER Last Admin: 07/27/17 15:13 Dose: 650 mg Albuterol/Ipratropium (Duoneb -) 1 amp NEB RQID [facility] Last Admin: 07/29/17 08:25 Dose: 1 amp Amino Acids (Prosource No Carb Liquid Pkt) 30 ml GT BID@0800,1730 [facility] Last Admin: 07/29/17 08:32 Dose: 30 ml Ascorbic Acid (Vitamin C -) 500 mg GT DAILY [facility] Last Admin: 07/29/17 11:23 Dose: 500 mg Calcium Carbonate/Cholecalciferol (Os-Frankie 500+D -) 1 tab GT DAILY [facility] Last Admin: 07/29/17 12:14 Dose: 1 tab Carbidopa/Levodopa (Sinemet 25/100 -) 1 each GT BID [facility] Last Admin: 07/29/17 11:23 Dose: 1 each Collagenase (Santyl -) 1 applic TP DAILY [facility] Last Admin: 07/28/17 14:30 Dose: 1 applic Donepezil HCl (Aricept -) 10 mg GT HS [facility] Last Admin: 07/28/17 22:11 Dose: 10 mg Furosemide (Lasix -) 40 mg GT BID@0600,1400 [facility] Last Admin: 07/29/17 06:05 Dose: 40 mg Piperacillin Sod/Tazobactam (Sod 3.375 gm/ Dextrose) 100 mls @ 200 mls/hr IVPB Q8H-IV [facility] Last Admin: 07/29/17 11:21 Dose: 200 mls/hr Vancomycin HCl 1,500 mg/ (Sodium Chloride) 500 mls @ 250 mls/hr IVPB Q24H [facility] PRN Reason: Protocol Last Admin: 07/28/17 20:16 Dose: 250 mls/hr Lactobacillus Acidophilus (Bacid -) 1 tab GT DAILY [facility] Last Admin: 07/29/17 11:22 Dose: 1 tab Loperamide HCl (Imodium Liquid -) 2 mg GT Q6H PRN PRN Reason: DIARRHEA Last Admin: 07/27/17 16:31 Dose: 2 mg Metronidazole (Flagyl -) 500 mg PO TID [facility] Last Admin: 07/29/17 06:05 Dose: 500 mg Nystatin (Nystop Powder -) 1 applic TP DAILY [facility] Last Admin: 07/29/17 12:12 Dose: 1 applic Potassium Chloride (Potassium Chloride Oral Liquid) 40 meq GT DAILY [facility] Last Admin: 07/29/17 11:22 Dose: 40 meq Ranitidine HCl (Zantac Oral Solution -) 150 mg GT DAILY [facility] Last Admin: 07/29/17 11:22 Dose: 150 mg Scopolamine HBr (Transderm-Scop -) 1 patch TD Q72H [facility] Last Admin: 07/29/17 00:26 Dose: 1 patch Silver Sulfadiazine (Silvadene -) 1 applic TP DAILY [facility] Last Admin: 07/28/17 17:00 Dose: Not Given Zinc Sulfate (Orazinc -) 220 mg GT BID [facility] Last Admin: 07/29/17 11:22 Dose: 220 mg - Objective Vital Signs: Vital Signs Temperature 99 F 07/29/17 11:15 Pulse Rate 99 H 07/29/17 11:15 Respiratory Rate 15 07/29/17 11:15 Blood Pressure 110/72 07/29/17 11:15 O2 Sat by Pulse Oximetry (%) 100 07/27/17 22:00 Constitutional: Yes: Well Nourished, No Distress, Calm Cardiovascular: Yes: Regular Rate and Rhythm Respiratory: Yes: Mechanically Ventilated Gastrointestinal: Yes: Soft Genitourinary: Yes: Olson Present Musculoskeletal: Yes: WNL Extremities: Yes: WNL Wound/Incision: Yes: Dressing Dry and Intact, Other (BL heel wounds) Neurological: Yes: Pre-Existing Deficit Labs: CBC, BMP 07/28/17 07:30 07/28/17 07:30 INR, PTT INR 2.58 (0.82-1.09) H 07/29/17 07:30 Problem List - Problems (1) Leukocytosis Assessment/Plan: -ID consult -iv abx -monitor trend -Tylenol for fever >100.0F -micro: Microbiology 07/26/17 06:31 Decubiti Gram Stain - Final 07/26/17 06:31 Decubiti Wound Culture - Preliminary Pseudomonas Aeruginosa Acinetobacter Baumannii/Haemol Mr S Aureus Enterococcus Faecalis Vr Ec Faecalis Proteus Mirabilis 07/25/17 11:18 Blood - Peripheral Venous Blood Culture - Preliminary NO GROWTH OBTAINED AFTER 96 HOURS, INCUBATION TO CONTINUE FOR 1 DAYS. 07/25/17 11:18 Blood - Peripheral Venous Blood Culture - Preliminary NO GROWTH OBTAINED AFTER 96 HOURS, INCUBATION TO CONTINUE FOR 1 DAYS. 07/25/17 11:18 Urine - Urine - Catheterized Urine Culture - Final Pseudomonas Aeruginosa Vr Ec Faecalis 07/26/17 06:00 Stool Clostridium difficile (PCR) - Preliminary 07/27/17 03:20 Stool Clostridium difficile Antigen (FAVIAN) - Final 07/27/17 03:20 Stool Clostridium difficile Toxin Assay - Final Code(s): D72.829 - ELEVATED WHITE BLOOD CELL COUNT, UNSPECIFIED (2) Chronic atrial fibrillation Assessment/Plan: -on AC -rate controlled Code(s): I48.2 - CHRONIC ATRIAL FIBRILLATION (3) Ventilator dependent Assessment/Plan: -pulmonary consult -bronchodilators Code(s): Z99.11 - DEPENDENCE ON RESPIRATOR [VENTILATOR] STATUS (4) Diarrhea Assessment/Plan: -chronic -recheck stools for acute infection -ID consult -GI consult -rectal tube -Cdiff negative -stool culture, O&P,elastase, pending -on Imodium -will try cholestyramine Code(s): R19.7 - DIARRHEA, UNSPECIFIED Qualifiers: Diarrhea type: unspecified type Qualified Code(s): R19.7 - Diarrhea, unspecified (5) Sacral decubitus ulcer Assessment/Plan: -Vascular consult -Wound culture: multiorganism -IV abx -debridement in AM Code(s): L89.159 - PRESSURE ULCER OF SACRAL REGION, UNSPECIFIED STAGE Qualifiers: Pressure ulcer stage: stage 3 Qualified Code(s): L89.153 - Pressure ulcer of sacral region, stage 3 Assessment/Plan see problem list
[2017-07-29] MEDS: COLLAGENASE CLOSTRIDIUM HIST. 30 GRAMS TUBE TP SCH (14:30)
--- NOTE | 2017-07-29 15:28 | PN ---
Progress Note, Physician Chief Complaint: Nonverbal/ett mvv History of Present Illness: Well known by me from [facility]. - Current Medication List Current Medications: Active Medications Acetaminophen (Tylenol -) 650 mg PO Q6H PRN PRN Reason: FEVER Last Admin: 07/27/17 15:13 Dose: 650 mg Albuterol/Ipratropium (Duoneb -) 1 amp NEB RQID [facility] Last Admin: 07/29/17 11:55 Dose: 1 amp Amino Acids (Prosource No Carb Liquid Pkt) 30 ml GT BID@0800,1730 [facility] Last Admin: 07/29/17 08:32 Dose: 30 ml Ascorbic Acid (Vitamin C -) 500 mg GT DAILY [facility] Last Admin: 07/29/17 11:23 Dose: 500 mg Calcium Carbonate/Cholecalciferol (Os-Frankie 500+D -) 1 tab GT DAILY [facility] Last Admin: 07/29/17 12:14 Dose: 1 tab Carbidopa/Levodopa (Sinemet 25/100 -) 1 each GT BID [facility] Last Admin: 07/29/17 11:23 Dose: 1 each Collagenase (Santyl -) 1 applic TP DAILY [facility] Last Admin: 07/28/17 14:30 Dose: 1 applic Donepezil HCl (Aricept -) 10 mg GT HS [facility] Last Admin: 07/28/17 22:11 Dose: 10 mg Furosemide (Lasix -) 40 mg GT BID@0600,1400 [facility] Last Admin: 07/29/17 15:04 Dose: 40 mg Piperacillin Sod/Tazobactam (Sod 3.375 gm/ Dextrose) 100 mls @ 200 mls/hr IVPB Q8H-IV [facility] Last Admin: 07/29/17 11:21 Dose: 200 mls/hr Vancomycin HCl 1,500 mg/ (Sodium Chloride) 500 mls @ 250 mls/hr IVPB Q24H [facility] PRN Reason: Protocol Last Admin: 07/28/17 20:16 Dose: 250 mls/hr Lactobacillus Acidophilus (Bacid -) 1 tab GT DAILY [facility] Last Admin: 07/29/17 11:22 Dose: 1 tab Loperamide HCl (Imodium Liquid -) 2 mg GT Q6H PRN PRN Reason: DIARRHEA Last Admin: 07/27/17 16:31 Dose: 2 mg Metronidazole (Flagyl -) 500 mg PO TID [facility] Last Admin: 07/29/17 14:20 Dose: 500 mg Nystatin (Nystop Powder -) 1 applic TP DAILY [facility] Last Admin: 07/29/17 12:12 Dose: 1 applic Potassium Chloride (Potassium Chloride Oral Liquid) 40 meq GT DAILY [facility] Last Admin: 07/29/17 11:22 Dose: 40 meq Ranitidine HCl (Zantac Oral Solution -) 150 mg GT DAILY [facility] Last Admin: 07/29/17 11:22 Dose: 150 mg Scopolamine HBr (Transderm-Scop -) 1 patch TD Q72H [facility] Last Admin: 07/29/17 00:26 Dose: 1 patch Silver Sulfadiazine (Silvadene -) 1 applic TP DAILY [facility] Last Admin: 07/28/17 17:00 Dose: Not Given Zinc Sulfate (Orazinc -) 220 mg GT BID [facility] Last Admin: 07/29/17 11:22 Dose: 220 mg - Objective Vital Signs: Vital Signs Temperature 99.3 F 07/29/17 14:51 Pulse Rate 85 07/29/17 14:51 Respiratory Rate 14 07/29/17 14:51 Blood Pressure 103/61 07/29/17 14:51 O2 Sat by Pulse Oximetry (%) 100 07/27/17 22:00 Constitutional: Yes: Other (chronically ill in appearance) Eyes: Yes: Conjunctiva Clear HENT: Yes: Atraumatic Neck: Yes: Other (ETT/MVV) Cardiovascular: Yes: Pulse Irregular, S1, S2 Respiratory: Yes: Diminished Gastrointestinal: Yes: Soft ...Rectal Exam: Yes: Deferred, Other (rectal tube) Extremities: Yes: Other (sacral decubiti/left heel necrotic ulcer) Neurological: Yes: Pre-Existing Deficit Labs: CBC, BMP 07/28/17 07:30 07/28/17 07:30 INR, PTT INR 2.58 (0.82-1.09) H 07/29/17 07:30 - ....Imaging Chest X-ray: Report Reviewed, Image Reviewed EKG: Report Reviewed, Image Reviewed Problem List - Problems (1) Chronic diarrhea Code(s): K52.9 - NONINFECTIVE GASTROENTERITIS AND COLITIS, UNSPECIFIED (2) Hypoalbuminemia Code(s): E88.09 - OTH DISORDERS OF PLASMA-PROTEIN METABOLISM, NEC (3) PEG (percutaneous endoscopic gastrostomy) adjustment/replacement/removal Code(s): Z43.1 - ENCOUNTER FOR ATTENTION TO GASTROSTOMY (4) Sacral decubitus ulcer Code(s): L89.159 - PRESSURE ULCER OF SACRAL REGION, UNSPECIFIED STAGE Qualifiers: Pressure ulcer stage: stage 3 Qualified Code(s): L89.153 - Pressure ulcer of sacral region, stage 3 (5) A-fib Code(s): I48.91 - UNSPECIFIED ATRIAL FIBRILLATION Qualifiers: Atrial fibrillation type: chronic Qualified Code(s): I48.2 - Chronic atrial fibrillation (6) Acute on chronic diastolic CHF (congestive heart failure) Code(s): I50.33 - ACUTE ON CHRONIC DIASTOLIC (CONGESTIVE) HEART FAILURE (7) Acute respiratory failure with hypoxia Code(s): J96.01 - ACUTE RESPIRATORY FAILURE WITH HYPOXIA (8) Chronic osteomyelitis Code(s): M86.60 - OTHER CHRONIC OSTEOMYELITIS, UNSPECIFIED SITE (9) Foot ulcer Code(s): L97.509 - NON-PRESSURE CHRONIC ULCER OTH PRT UNSP FOOT W UNSP SEVERITY Qualifiers: Laterality: left (10) Parkinson disease Code(s): G20 - PARKINSON'S DISEASE (11) Pressure ulcer Code(s): L89.90 - PRESSURE ULCER OF UNSPECIFIED SITE, UNSPECIFIED STAGE Qualifiers: Pressure ulcer stage: stage II Qualified Code(s): L89.92 - Pressure ulcer of unspecified site, stage 2 (12) Respiratory failure Code(s): J96.90 - RESPIRATORY FAILURE, UNSP, UNSP W HYPOXIA OR HYPERCAPNIA Qualifiers: Chronicity: acute Respiratory failure complication: hypoxia and hypercapnia Qualified Code(s): J96.01 - Acute respiratory failure with hypoxia Assessment/Plan Maintain current vent settings Not a candidate for wean at this time BD TX PRN Do not suspect PNA Vent floor ABX/debridement sacral decubiti as planned Renaldo ROMANO MD
[2017-07-29] MEDS ORDERED: PIPERACIL/TAZOB 3.375 GM 3.375 GM/50 ML PREMIX IVPB SCH (19:15)
[2017-07-29] MEDS: VANCOMYCIN 1,500 MG in SODIUM CHLORIDE 500 ML IVPB SCH (20:31)
[2017-07-29] MEDS: DONEPEZIL HCL 10 MG TABLET (FP) GT SCH (22:50)
[2017-07-30] MEDS: PIPERACILLIN/TAZOB 3.375 GM 3.375 GM in DEXTROSE 5%-WATER - 100 ML IVPB SCH ×3 (02:53→18:40)
[2017-07-30] MEDS: CHOLESTYRAMINE/SUCROSE 4 GM PACKET GT SCH ×2 (06:01→13:32)
[2017-07-30] MEDS: FUROSEMIDE 40 MG TABLET (FP) GT SCH ×2 (06:01→13:32)
[2017-07-30] MEDS: metroNIDAZOLE 250 MG TABLET PO SCH ×2 (06:01→13:32)
[2017-07-30] MEDS: ALBUTEROL SO4 2.5/IPRATROPIUM 0.5 INH SOL 3 ML VIAL.NEB. NEB SCH ×4 (08:10→20:47)
--- NOTE | 2017-07-30 08:15 | PN ---
GI Progress Note Subjective: GI NOte: Mekhi has been leaking around his 22FR G tube so I removed it and replaced it with a 24FR tube. The external bumper was lightly tightened. Location within the stomach was confirmed by irrigation and auscultation but will confirm more definitively with gastrograffin study before using it. - Objective Vital Signs: Vital Signs Temperature 99.1 F 07/30/17 06:00 Pulse Rate 87 07/30/17 06:00 Respiratory Rate 18 07/30/17 06:24 Blood Pressure 137/71 07/30/17 06:00 O2 Sat by Pulse Oximetry (%) 98 07/30/17 02:24 Constitutional: No Distress, Other (Unresponsive on ventilator) Gastrointestinal Inspection: Yes: Other (erythematous G tube site but no fluctuance) ...Auscultate: Yes: Normoactive Bowel Sounds ...Palpate: Yes: Soft, Other (no tenderness elicited) Labs: CBC, BMP 07/28/17 07:30 07/28/17 07:30 INR, PTT INR 2.58 (0.82-1.09) H 07/29/17 07:30 Assessment/Plan To obtain gastrograffin G tube study to confirm intragastric location before utilizing the tube. Will need to wait until after surgery to keep the patient NPO Problem List - Problems (1) Chronic diarrhea Assessment/Plan: Suspect pseudoobstruction and overflow diarrhea but given low albumin will check for pancreatic insufficiency Code(s): K52.9 - NONINFECTIVE GASTROENTERITIS AND COLITIS, UNSPECIFIED (2) PEG (percutaneous endoscopic gastrostomy) adjustment/replacement/removal Assessment/Plan: Old G tube removed and replaced with 24FR G tube. G tube appears to be in good position but wuill confirm with gastrograffin study after he returns from the OR and debridement before resuming feedings. Discussed with Patsy the nurse. Code(s): Z43.1 - ENCOUNTER FOR ATTENTION TO GASTROSTOMY (3) Hypoalbuminemia Code(s): E88.09 - OTH DISORDERS OF PLASMA-PROTEIN METABOLISM, NEC
[2017-07-30] MEDS: AMINO ACIDS/PROTEIN HYDROLYS 30 ML LIQUID.PKT GT SCH ×2 (08:22→18:18)
[2017-07-30] MEDS: ZINC SULFATE 220 MG CAPSULE (FP) GT SCH (10:31)
[2017-07-30] MEDS: LACTOBACILLUS ACIDOPHILUS 1 EACH TAB (FP) GT SCH (10:31)
[2017-07-30] MEDS: POTASSIUM CHLORIDE ORAL LIQUID 20 MEQ/15 ML GT SCH (10:31)
[2017-07-30] MEDS: CALCIUM 500MG/VIT-D 200 UNITS COMBO TABLET (FP) GT SCH (10:31)
[2017-07-30] MEDS: ASCORBIC ACID 500 MG TABLET (FP) GT SCH (10:32)
[2017-07-30] MEDS: RANITIDINE HCL 150 MG/10 ML UNIT-DOSE GT SCH (10:32)
[2017-07-30] MEDS: CARBIDOPA/LEVODOPA 25/100 TABLET (FP) GT SCH (10:32)
[2017-07-30] MEDS: NYSTATIN POWDER 100,000 UNITS/GM - 15 GM TOPICAL POWDER TP SCH (10:58)
--- NOTE | 2017-07-30 11:07 | PN ---
Progress Note, Physician History of Present Illness: seen and examined nad. unresponsive, vent. no overnight events. - Current Medication List Current Medications: Active Medications Acetaminophen (Tylenol -) 650 mg PO Q6H PRN PRN Reason: FEVER Last Admin: 07/27/17 15:13 Dose: 650 mg Albuterol/Ipratropium (Duoneb -) 1 amp NEB RQID [facility] Last Admin: 07/29/17 20:40 Dose: 1 amp Amino Acids (Prosource No Carb Liquid Pkt) 30 ml GT BID@0800,1730 [facility] Last Admin: 07/30/17 08:22 Dose: Not Given Ascorbic Acid (Vitamin C -) 500 mg GT DAILY [facility] Last Admin: 07/29/17 11:23 Dose: 500 mg Calcium Carbonate/Cholecalciferol (Os-Frankie 500+D -) 1 tab GT DAILY [facility] Last Admin: 07/29/17 12:14 Dose: 1 tab Carbidopa/Levodopa (Sinemet 25/100 -) 1 each GT BID [facility] Last Admin: 07/29/17 22:50 Dose: 1 each Cholestyramine Resin (Questran Packet -) 4 gm GT TID [facility] Last Admin: 07/30/17 06:01 Dose: Not Given Collagenase (Santyl -) 1 applic TP DAILY [facility] Last Admin: 07/29/17 14:30 Dose: 1 applic Donepezil HCl (Aricept -) 10 mg GT HS [facility] Last Admin: 07/29/17 22:50 Dose: 10 mg Furosemide (Lasix -) 40 mg GT BID@0600,1400 [facility] Last Admin: 07/30/17 06:01 Dose: Not Given Vancomycin HCl 1,500 mg/ (Sodium Chloride) 500 mls @ 250 mls/hr IVPB Q24H [facility] PRN Reason: Protocol Last Admin: 07/29/17 20:31 Dose: 250 mls/hr Piperacillin Sod/Tazobactam (Sod 3.375 gm/ Dextrose) 100 mls @ 200 mls/hr IVPB Q8H-IV [facility] Last Admin: 07/30/17 10:45 Dose: 200 mls/hr Lactobacillus Acidophilus (Bacid -) 1 tab GT DAILY [facility] Last Admin: 07/29/17 11:22 Dose: 1 tab Loperamide HCl (Imodium Liquid -) 2 mg GT Q6H PRN PRN Reason: DIARRHEA Last Admin: 07/27/17 16:31 Dose: 2 mg Metronidazole (Flagyl -) 500 mg PO TID [facility] Last Admin: 07/30/17 06:01 Dose: Not Given Nystatin (Nystop Powder -) 1 applic TP DAILY [facility] Last Admin: 07/30/17 10:58 Dose: 1 applic Potassium Chloride (Potassium Chloride Oral Liquid) 40 meq GT DAILY [facility] Last Admin: 07/29/17 11:22 Dose: 40 meq Ranitidine HCl (Zantac Oral Solution -) 150 mg GT DAILY [facility] Last Admin: 07/29/17 11:22 Dose: 150 mg Scopolamine HBr (Transderm-Scop -) 1 patch TD Q72H [facility] Last Admin: 07/29/17 00:26 Dose: 1 patch Silver Sulfadiazine (Silvadene -) 1 applic TP DAILY [facility] Last Admin: 07/28/17 17:00 Dose: Not Given Zinc Sulfate (Orazinc -) 220 mg GT BID [facility] Last Admin: 07/29/17 22:50 Dose: 220 mg - Objective Vital Signs: Vital Signs Temperature 99.1 F 07/30/17 06:00 Pulse Rate 87 07/30/17 06:00 Respiratory Rate 16 07/30/17 10:07 Blood Pressure 137/71 07/30/17 06:00 O2 Sat by Pulse Oximetry (%) 98 07/30/17 02:24 Constitutional: Yes: No Distress, Calm HENT: Yes: Atraumatic Cardiovascular: Yes: Pulse Irregular, S1, S2. No: Bradycardia, Tachycardia, Bruit, JVD, Gallop, Murmur, Rub, S3, S4, Varicosities Respiratory: Yes: Regular, Diminished, Mechanically Ventilated. No: Rales, Rhonchi, Wheezes Gastrointestinal: Yes: Normal Bowel Sounds Edema: Yes Edema: LUE: 1+, RUE: 1+, LLE: 1+, RLE: 1+ Peripheral Pulses WNL: Yes Neurological: No: Alert, Oriented Psychiatric: No: Alert, Oriented Labs: CBC, BMP 07/28/17 07:30 07/28/17 07:30 INR, PTT INR 2.58 (0.82-1.09) H 07/29/17 07:30 - ....Imaging Chest X-ray: Report Reviewed, Image Reviewed EKG: Report Reviewed, Image Reviewed Other: Report Reviewed, Image Reviewed Assessment/Plan A-fib-HR controlled -Hold coumadin and bridge to possible surgery with Heparin gtts when INR < 2, if no surgery then resume coumadin -not currently requiring AV lucy blockers Acute on chronic diastolic CHF (congestive heart failure)-majority of edema has been due to third spacing from hypoalbuminemia -anasarca from third spacing -keep Is= Os. -cont current Lasix dose Code(s): I50.33 - ACUTE ON CHRONIC DIASTOLIC (CONGESTIVE) HEART FAILURE
[2017-07-30] MEDS ORDERED: COLLAGENASE CLOSTRIDIUM HIST. 30 GRAMS TUBE TP SCH (11:14)
[2017-07-30] MEDS ORDERED: SILVER SULFADIAZINE 1% TOP CREAM 50 GM JAR TP SCH (11:14)
--- NOTE | 2017-07-30 11:16 | PN ---
Progress Note, Physician Chief Complaint: Sepsis History of Present Illness: NAD Chronically ill on mechanical vent -seen by ID, GI and vascular going for debridement in AM - Current Medication List Current Medications: Active Medications Acetaminophen (Tylenol -) 650 mg PO Q6H PRN PRN Reason: FEVER Last Admin: 07/27/17 15:13 Dose: 650 mg Albuterol/Ipratropium (Duoneb -) 1 amp NEB RQID [facility] Last Admin: 07/29/17 20:40 Dose: 1 amp Amino Acids (Prosource No Carb Liquid Pkt) 30 ml GT BID@0800,1730 [facility] Last Admin: 07/30/17 08:22 Dose: Not Given Ascorbic Acid (Vitamin C -) 500 mg GT DAILY [facility] Last Admin: 07/29/17 11:23 Dose: 500 mg Calcium Carbonate/Cholecalciferol (Os-Frankie 500+D -) 1 tab GT DAILY [facility] Last Admin: 07/29/17 12:14 Dose: 1 tab Carbidopa/Levodopa (Sinemet 25/100 -) 1 each GT BID [facility] Last Admin: 07/29/17 22:50 Dose: 1 each Cholestyramine Resin (Questran Packet -) 4 gm GT TID [facility] Last Admin: 07/30/17 06:01 Dose: Not Given Collagenase (Santyl -) 1 applic TP DAILY [facility] Donepezil HCl (Aricept -) 10 mg GT HS [facility] Last Admin: 07/29/17 22:50 Dose: 10 mg Furosemide (Lasix -) 40 mg GT BID@0600,1400 [facility] Last Admin: 07/30/17 06:01 Dose: Not Given Vancomycin HCl 1,500 mg/ (Sodium Chloride) 500 mls @ 250 mls/hr IVPB Q24H [facility] PRN Reason: Protocol Last Admin: 07/29/17 20:31 Dose: 250 mls/hr Piperacillin Sod/Tazobactam (Sod 3.375 gm/ Dextrose) 100 mls @ 200 mls/hr IVPB Q8H-IV [facility] Last Admin: 07/30/17 10:45 Dose: 200 mls/hr Lactobacillus Acidophilus (Bacid -) 1 tab GT DAILY [facility] Last Admin: 07/29/17 11:22 Dose: 1 tab Loperamide HCl (Imodium Liquid -) 2 mg GT Q6H PRN PRN Reason: DIARRHEA Last Admin: 07/27/17 16:31 Dose: 2 mg Metronidazole (Flagyl -) 500 mg PO TID [facility] Last Admin: 07/30/17 06:01 Dose: Not Given Nystatin (Nystop Powder -) 1 applic TP DAILY [facility] Last Admin: 07/30/17 10:58 Dose: 1 applic Potassium Chloride (Potassium Chloride Oral Liquid) 40 meq GT DAILY [facility] Last Admin: 07/29/17 11:22 Dose: 40 meq Ranitidine HCl (Zantac Oral Solution -) 150 mg GT DAILY [facility] Last Admin: 07/29/17 11:22 Dose: 150 mg Scopolamine HBr (Transderm-Scop -) 1 patch TD Q72H [facility] Last Admin: 07/29/17 00:26 Dose: 1 patch Silver Sulfadiazine (Silvadene -) 1 applic TP DAILY [facility] Zinc Sulfate (Orazinc -) 220 mg GT BID [facility] Last Admin: 07/29/17 22:50 Dose: 220 mg - Objective Vital Signs: Vital Signs Temperature 99.1 F 07/30/17 06:00 Pulse Rate 87 07/30/17 06:00 Respiratory Rate 16 07/30/17 10:07 Blood Pressure 137/71 07/30/17 06:00 O2 Sat by Pulse Oximetry (%) 98 07/30/17 02:24 Constitutional: Yes: Well Nourished, No Distress, Calm Cardiovascular: Yes: Regular Rate and Rhythm Respiratory: Yes: Mechanically Ventilated Gastrointestinal: Yes: Normal Bowel Sounds, Other (PEG tube) ...Rectal Exam: Yes: Other (rectal tube) Musculoskeletal: Yes: WNL Extremities: Yes: WNL Neurological: Yes: Pre-Existing Deficit Labs: CBC, BMP 07/28/17 07:30 07/28/17 07:30 INR, PTT INR 2.58 (0.82-1.09) H 07/29/17 07:30 Problem List - Problems (1) Leukocytosis Assessment/Plan: -ID consult -iv abx -monitor trend -Tylenol for fever >100.0F -micro: Microbiology 07/28/17 09:06 Stool Gram Stain - Final 07/28/17 09:06 Stool Salmonella/Shigella Culture - Final NO GROWTH OF SALMONELLA OR SHIGELLA SPECIES OBTAINED 07/28/17 09:06 Stool Campylobacter Culture - Final NO GROWTH OF CAMPYLOBACTER SPECIES OBTAINED 07/28/17 09:06 Stool Yersinia Culture - Final NO GROWTH OF YERSINIA SPECIES OBTAINED 07/28/17 09:06 Stool Vibrio Culture - Final NO GROWTH OF VIBRIO SPECIES OBTAINED 07/28/17 09:06 Stool Escherichia coli 0157 Culture - Final NO GROWTH OF E COLI 0157 OBTAINED 07/25/17 11:18 Blood - Peripheral Venous Blood Culture - Final NO GROWTH AFTER 5 DAYS INCUBATION 07/25/17 11:18 Blood - Peripheral Venous Blood Culture - Final NO GROWTH AFTER 5 DAYS INCUBATION 07/26/17 06:31 Decubiti Gram Stain - Final 07/26/17 06:31 Decubiti Wound Culture - Final Pseudomonas Aeruginosa Acinetobacter Baumannii/Haemol Mr S Aureus Enterococcus Faecalis Vr Ec Faecalis Proteus Mirabilis 07/25/17 11:18 Urine - Urine - Catheterized Urine Culture - Final Pseudomonas Aeruginosa Vr Ec Faecalis 07/26/17 06:00 Stool Clostridium difficile (PCR) - Preliminary 07/27/17 03:20 Stool Clostridium difficile Antigen (FAVIAN) - Final 07/27/17 03:20 Stool Clostridium difficile Toxin Assay - Final Code(s): D72.829 - ELEVATED WHITE BLOOD CELL COUNT, UNSPECIFIED (2) Chronic atrial fibrillation Assessment/Plan: -on AC -rate controlled -repeat INR in AM Code(s): I48.2 - CHRONIC ATRIAL FIBRILLATION (3) Ventilator dependent Assessment/Plan: -pulmonary consult -bronchodilators Code(s): Z99.11 - DEPENDENCE ON RESPIRATOR [VENTILATOR] STATUS (4) Diarrhea Assessment/Plan: -chronic -GI consult -rectal tube -Cdiff negative -stool culture, O&P,elastase, negative -on Imodium and cholestyramine Code(s): R19.7 - DIARRHEA, UNSPECIFIED Qualifiers: Diarrhea type: unspecified type Qualified Code(s): R19.7 - Diarrhea, unspecified (5) Sacral decubitus ulcer Assessment/Plan: -Vascular consult -Wound culture: multiorganism -IV abx Code(s): L89.159 - PRESSURE ULCER OF SACRAL REGION, UNSPECIFIED STAGE Qualifiers: Pressure ulcer stage: stage 3 Qualified Code(s): L89.153 - Pressure ulcer of sacral region, stage 3 Assessment/Plan see problem list
[2017-07-30 11:38] LABS: BASO % 1.3 % (0-2.0); EOS % 4.8 % (0-4.5); HEMATOCRIT 33.5 % (35.4-49); HEMOGLOBIN 10.4 GM/dL (11.7-16.9); LYMPH % 17.5 % (8-40); MCH 25.8 pg (25.7-33.7); MCHC 31.1 g/dl (32.0-35.9); MEAN CELL VOLUME 83.1 fl (80-96); MEAN PLT VOLUME 8.4 fl (7.5-11.1); MONO % 8.1 % (3.8-10.2); NEUT % 68.3 % (42.8-82.8); PLATELET COUNT 413 K/MM3 (134-434); RBC 4.03 M/mm3 (4.00-5.60); RDW 16.6 % (11.9-15.9); WHITE BLOOD COUNT 16.5 K/mm3 (4.0-10.0)
[2017-07-30] MEDS ORDERED: LIDOCAINE HCL 1%, 10 MG/ML (20ML VIAL) ONE (11:47)
[2017-07-30 12:17] LABS: ALBUMIN 1.7 g/dl (3.4-5.0); ANION GAP 7 (8-16); BILIRUBIN,TOTAL 0.4 mg/dL (0.2-1.0); BLOOD UREA NITROGEN 21 mg/dL (7-18); CALCIUM 7.6 mg/dL (8.5-10.1); CHLORIDE 108 mmol/L (98-107); CO2 30 mmol/L (21-32); CREATININE 0.6 mg/dL (0.7-1.3); GLUCOSE,RANDOM 109 mg/dL (74-106); POTASSIUM 3.4 mmol/L (3.5-5.1); SGOT/AST 23 U/L (15-37); SGPT/ALT 16 U/L (12-78); SODIUM 145 mmol/L (136-145); TOT PROT 6.7 g/dl (6.4-8.2)
[2017-07-30 12:18] LABS: ALK PHOS 114 U/L (45-117)
[2017-07-30 12:59] LABS: INR 2.38 (0.82-1.09); PROTHROMBIN TIME (PATIENT) 26.9 SEC (9.98-11.88)
[2017-07-30] MEDS: COLLAGENASE CLOSTRIDIUM HIST. 30 GRAMS TUBE TP SCH (13:25)
[2017-07-30] MEDS: SILVER SULFADIAZINE 1% TOP CREAM 50 GM JAR TP SCH (13:25)
--- NOTE | 2017-07-30 14:17 | PN ---
Progress Note, Physician History of Present Illness: pulmonary poorly responsive on vent support ac mode,for sacral decub debridement today - Current Medication List Current Medications: Active Medications Acetaminophen (Tylenol -) 650 mg PO Q6H PRN PRN Reason: FEVER Last Admin: 07/27/17 15:13 Dose: 650 mg Albuterol/Ipratropium (Duoneb -) 1 amp NEB RQID [facility] Last Admin: 07/29/17 20:40 Dose: 1 amp Amino Acids (Prosource No Carb Liquid Pkt) 30 ml GT BID@0800,1730 [facility] Last Admin: 07/30/17 08:22 Dose: Not Given Ascorbic Acid (Vitamin C -) 500 mg GT DAILY [facility] Last Admin: 07/30/17 10:32 Dose: Not Given Calcium Carbonate/Cholecalciferol (Os-Frankie 500+D -) 1 tab GT DAILY [facility] Last Admin: 07/30/17 10:31 Dose: Not Given Carbidopa/Levodopa (Sinemet 25/100 -) 1 each GT BID [facility] Last Admin: 07/30/17 10:32 Dose: Not Given Cholestyramine Resin (Questran Packet -) 4 gm GT TID [facility] Last Admin: 07/30/17 13:32 Dose: Not Given Collagenase (Santyl -) 1 applic TP DAILY [facility] Last Admin: 07/30/17 10:22 Dose: 1 applic Donepezil HCl (Aricept -) 10 mg GT HS [facility] Last Admin: 07/29/17 22:50 Dose: 10 mg Furosemide (Lasix -) 40 mg GT BID@0600,1400 [facility] Last Admin: 07/30/17 13:32 Dose: Not Given Vancomycin HCl 1,500 mg/ (Sodium Chloride) 500 mls @ 250 mls/hr IVPB Q24H [facility] PRN Reason: Protocol Last Admin: 07/29/17 20:31 Dose: 250 mls/hr Piperacillin Sod/Tazobactam (Sod 3.375 gm/ Dextrose) 100 mls @ 200 mls/hr IVPB Q8H-IV [facility] Last Admin: 07/30/17 10:45 Dose: 200 mls/hr Lactobacillus Acidophilus (Bacid -) 1 tab GT DAILY [facility] Last Admin: 07/30/17 10:31 Dose: Not Given Loperamide HCl (Imodium Liquid -) 2 mg GT Q6H PRN PRN Reason: DIARRHEA Last Admin: 01/22/18 16:31 Dose: 2 mg Metronidazole (Flagyl -) 500 mg PO TID [facility] Last Admin: 07/30/17 13:32 Dose: Not Given Nystatin (Nystop Powder -) 1 applic TP DAILY [facility] Last Admin: 07/30/17 10:58 Dose: 1 applic Potassium Chloride (Potassium Chloride Oral Liquid) 40 meq GT DAILY [facility] Last Admin: 07/30/17 10:31 Dose: Not Given Ranitidine HCl (Zantac Oral Solution -) 150 mg GT DAILY [facility] Last Admin: 07/30/17 10:32 Dose: Not Given Scopolamine HBr (Transderm-Scop -) 1 patch TD Q72H [facility] Last Admin: 07/29/17 00:26 Dose: 1 patch Silver Sulfadiazine (Silvadene -) 1 applic TP DAILY [facility] Last Admin: 07/30/17 13:20 Dose: 1 applic Zinc Sulfate (Orazinc -) 220 mg GT BID [facility] Last Admin: 07/30/17 10:31 Dose: Not Given - Objective Vital Signs: Vital Signs Temperature 99.2 F 07/30/17 10:00 Pulse Rate 98 H 07/30/17 10:00 Respiratory Rate 16 07/30/17 10:07 Blood Pressure 121/81 07/30/17 10:00 O2 Sat by Pulse Oximetry (%) 98 07/30/17 02:24 Constitutional: Yes: Well Nourished, Other (poorly responsive) Eyes: Yes: WNL HENT: Yes: WNL Neck: Yes: Supple (trach) Cardiovascular: Yes: Pulse Irregular, S1, S2 Respiratory: Yes: Diminished Gastrointestinal: Yes: Normal Bowel Sounds, Soft Extremities: Yes: WNL Edema: Yes Labs: CBC, BMP 07/30/17 11:25 07/30/17 11:25 INR, PTT INR 2.38 (0.82-1.09) H 07/30/17 11:25 Problem List - Problems (1) PEG (percutaneous endoscopic gastrostomy) adjustment/replacement/removal Code(s): Z43.1 - ENCOUNTER FOR ATTENTION TO GASTROSTOMY (2) Sepsis Code(s): A41.9 - SEPSIS, UNSPECIFIED ORGANISM Qualifiers: Sepsis type: sepsis due to unspecified organism Qualified Code(s): A41.9 - Sepsis, unspecified organism (3) A-fib Code(s): I48.91 - UNSPECIFIED ATRIAL FIBRILLATION Qualifiers: Atrial fibrillation type: chronic Qualified Code(s): I48.2 - Chronic atrial fibrillation (4) Chronic atrial fibrillation Code(s): I48.2 - CHRONIC ATRIAL FIBRILLATION (5) Chronic respiratory failure Code(s): J96.10 - CHRONIC RESPIRATORY FAILURE, UNSP W HYPOXIA OR HYPERCAPNIA Qualifiers: Respiratory failure complication: hypoxia Qualified Code(s): J96.11 - Chronic respiratory failure with hypoxia (6) Dementia Code(s): F03.90 - UNSPECIFIED DEMENTIA WITHOUT BEHAVIORAL DISTURBANCE Qualifiers: Dementia type: Parkinson's disease Dementia behavioral disturbance: with behavioral disturbance Qualified Code(s): G20 - Parkinson's disease (7) Parkinson disease Code(s): G20 - PARKINSON'S DISEASE (8) Pressure ulcer Code(s): L89.90 - PRESSURE ULCER OF UNSPECIFIED SITE, UNSPECIFIED STAGE Qualifiers: Pressure ulcer stage: stage II Qualified Code(s): L89.92 - Pressure ulcer of unspecified site, stage 2 (9) Ventilator dependent Code(s): Z99.11 - DEPENDENCE ON RESPIRATOR [VENTILATOR] STATUS Assessment/Plan A/P Chronic Respiratory Failure s/p Tracheostomy Sacral Decubitus Ulcer Atrial Fibrillaion Parkinsons Dementia - continue antibiotics - wound care - for debridement, no pulmonary contraindications as pt vented - rate controlled - anticoagulation - enteral feeds - not a candidate for weaning at this time due to poor mental status
[2017-07-30] MEDS ORDERED: LACTATED RINGERS SOLUTION 1,000 ML IV SCH (15:15)
[2017-07-30] MEDS ORDERED: MIDAZOLAM HCL 2 MG/2 ML SINGLE DOSE VIAL ONE (15:21)
--- NOTE | 2017-07-30 16:04 | OP ---
Operative Note - Note: Operative Date: 07/30/17 Pre-Operative Diagnosis: Necrotic sacral ulcer, right heel ulcer Operation: Excisional debridement sacrum skin, subcutaneous tissue, muscle. Excisional debridement right heel skin, subcutaneous tissue Findings: necrotic sacrum Post-Operative Diagnosis: Same as Pre-op Surgeon: Gutierrez Rosario Anesthesia: General Estimated Blood Loss (mls): 25 Operative Report Dictated: Yes
[2017-07-30] MEDS ORDERED: LOPERAMIDE HCL 1 MG/5 ML UNIT DOSE CUP GT PRN (16:51)
[2017-07-30] MEDS ORDERED: ACETAMINOPHEN 325 MG TABLET (FP) PO PRN (17:16)
[2017-07-30] MEDS ORDERED: PIPERACILLIN/TAZOB 3.375 GM 50 ML IVPB SCH (18:00)
[2017-07-30] MEDS ORDERED: ACETAMINOPHEN 325 MG TABLET (FP) PO SCH (18:00)
[2017-07-30] MEDS ORDERED: PIPERACILLIN/TAZOB 3.375 GM 3.375 GM in DEXTROSE 5%-WATER - 100 ML IVPB SCH ×2 (18:10→19:15)
[2017-07-30] MEDS: oxyCODONE HCL 5 MG TABLET GT SCH (18:18)
[2017-07-30] MEDS: LACTATED RINGERS SOLUTION 1,000 ML IV SCH (18:20)
[2017-07-30] MEDS: VANCOMYCIN 1,500 MG in SODIUM CHLORIDE 500 ML IVPB SCH (20:35)
[2017-07-31] MEDS: PIPERACILLIN/TAZOB 3.375 GM 3.375 GM in DEXTROSE 5%-WATER - 100 ML IVPB SCH ×3 (02:24→18:15)
[2017-07-31] MEDS: metroNIDAZOLE 250 MG TABLET PO SCH ×4 (02:46→23:14)
[2017-07-31] MEDS: CARBIDOPA/LEVODOPA 25/100 TABLET (FP) GT SCH ×3 (02:46→23:13)
[2017-07-31] MEDS: ZINC SULFATE 220 MG CAPSULE (FP) GT SCH ×3 (02:46→23:12)
[2017-07-31] MEDS: oxyCODONE HCL 5 MG TABLET GT SCH ×5 (02:46→23:12)
[2017-07-31] MEDS: DONEPEZIL HCL 10 MG TABLET (FP) GT SCH ×2 (02:46→23:12)
[2017-07-31] MEDS: ACETAMINOPHEN 325 MG TABLET (FP) NR SCH ×5 (02:47→23:13)
[2017-07-31] MEDS: CHOLESTYRAMINE/SUCROSE 4 GM PACKET GT SCH ×4 (02:49→23:15)
[2017-07-31] MEDS: FUROSEMIDE 40 MG TABLET (FP) GT SCH ×2 (05:44→14:44)
[2017-07-31] MEDS: ALBUTEROL SO4 2.5/IPRATROPIUM 0.5 INH SOL 3 ML VIAL.NEB. NEB SCH ×4 (08:09→21:10)
[2017-07-31] MEDS ORDERED: PT OWN MED DRAWER 7, Y5N ONE (08:53)
[2017-07-31] MEDS: RANITIDINE HCL 150 MG/10 ML UNIT-DOSE GT SCH (09:14)
[2017-07-31] MEDS: AMINO ACIDS/PROTEIN HYDROLYS 30 ML LIQUID.PKT GT SCH ×2 (09:14→18:14)
[2017-07-31] MEDS: LACTOBACILLUS ACIDOPHILUS 1 EACH TAB (FP) GT SCH (09:15)
[2017-07-31] MEDS: POTASSIUM CHLORIDE ORAL LIQUID 20 MEQ/15 ML GT SCH (09:15)
[2017-07-31] MEDS: ASCORBIC ACID 500 MG/5 ML UNIT DOSE CUP GT SCH (09:16)
[2017-07-31] MEDS: CALCIUM 500MG/VIT-D 200 UNITS COMBO TABLET (FP) GT SCH (09:16)
--- NOTE | 2017-07-31 10:18 | PN ---
Progress Note (short form) - Note Progress Note: Anesthesia post op, POD#1 S/P Excisional debridement sacrum skin, subcutaneous tissue, muscle. Excisional debridement right heel skin, subcutaneous tissue, under GA. Pat seen and examined. Pat is non resoponsive to verbal stimuli, eyes open, on ventilator. VSS. No apparent post anesthesia complications.
--- NOTE | 2017-07-31 13:20 | PN ---
Progress Note, Physician Chief Complaint: s/p debridement yesterday - Current Medication List Current Medications: Active Medications Acetaminophen (Tylenol -) 650 mg PO Q6H PRN PRN Reason: FEVER Acetaminophen (Tylenol -) 325 mg NR QID [facility] Last Admin: 07/31/17 10:12 Dose: 325 mg Albuterol/Ipratropium (Duoneb -) 1 amp NEB RQID [facility] Last Admin: 07/31/17 12:36 Dose: 1 amp Amino Acids (Prosource No Carb Liquid Pkt) 30 ml GT BID@0800,1730 [facility] Last Admin: 07/31/17 09:14 Dose: 30 ml Ascorbic Acid (Vitamin C Oral Solution -) 500 mg GT DAILY [facility] Last Admin: 07/31/17 09:16 Dose: 500 mg Calcium Carbonate/Cholecalciferol (Os-Frankie 500+D -) 1 tab GT DAILY [facility] Last Admin: 07/31/17 09:16 Dose: 1 tab Carbidopa/Levodopa (Sinemet 25/100 -) 1 each GT BID [facility] Last Admin: 07/31/17 09:15 Dose: 1 each Cholestyramine Resin (Questran Packet -) 4 gm GT TID [facility] Last Admin: 07/31/17 05:45 Dose: Not Given Collagenase (Santyl -) 1 applic TP DAILY [facility] Donepezil HCl (Aricept -) 10 mg GT HS [facility] Last Admin: 07/31/17 02:46 Dose: 10 mg Furosemide (Lasix -) 40 mg GT BID@0600,1400 [facility] Last Admin: 07/31/17 05:44 Dose: 40 mg Lactated Ringer's (Lactated Ringers Solution) 1,000 mls @ 75 mls/hr IV ASDIR [facility] Last Admin: 07/30/17 18:20 Dose: Not Given Vancomycin HCl 1,500 mg/ (Sodium Chloride) 500 mls @ 250 mls/hr IVPB DAILY@ 1900 [facility] PRN Reason: Protocol Last Admin: 07/30/17 20:35 Dose: 250 mls/hr Piperacillin Sod/Tazobactam (Sod 3.375 gm/ Dextrose) 100 mls @ 200 mls/hr IVPB Q8H-IV [facility] Last Admin: 07/31/17 09:17 Dose: 200 mls/hr Lactobacillus Acidophilus (Bacid -) 1 tab GT DAILY [facility] Last Admin: 07/31/17 09:15 Dose: 1 tab Loperamide HCl (Imodium Liquid -) 2 mg GT Q6H PRN PRN Reason: DIARRHEA Metronidazole (Flagyl -) 500 mg PO TID [facility] Last Admin: 07/31/17 05:45 Dose: Not Given Nystatin (Nystop Powder -) 1 applic TP DAILY [facility] Oxycodone HCl (Roxicodone -) 5 mg GT QID [facility] Last Admin: 07/31/17 10:14 Dose: 5 mg Potassium Chloride (Potassium Chloride Oral Liquid) 40 meq GT DAILY [facility] Last Admin: 07/31/17 09:15 Dose: 40 meq Ranitidine HCl (Zantac Oral Solution -) 150 mg GT DAILY [facility] Last Admin: 07/31/17 09:14 Dose: 150 mg Scopolamine HBr (Transderm-Scop -) 1 patch TD Q72H [facility] Silver Sulfadiazine (Silvadene -) 1 applic TP DAILY [facility] Zinc Sulfate (Orazinc -) 220 mg GT BID [facility] Last Admin: 07/31/17 09:15 Dose: 220 mg - Objective Vital Signs: Vital Signs Temperature 98 F 07/31/17 09:08 Pulse Rate 86 07/31/17 09:08 Respiratory Rate 12 07/31/17 09:41 Blood Pressure 117/56 07/31/17 09:08 O2 Sat by Pulse Oximetry (%) 98 07/30/17 21:00 Labs: CBC, BMP 07/30/17 11:25 07/30/17 11:25 INR, PTT INR 2.38 (0.82-1.09) H 07/30/17 11:25 Problem List - Problems (1) Sacral decubitus ulcer Assessment/Plan: collagenase wound care frequent turn and position - Note: Operative Date: 07/30/17 Pre-Operative Diagnosis: Necrotic sacral ulcer, right heel ulcer Operation: Excisional debridement sacrum skin, subcutaneous tissue, muscle. Excisional debridement right heel skin, subcutaneous tissue Findings: necrotic sacrum Post-Operative Diagnosis: Same as Pre-op Surgeon: Gutierrez Rosario Anesthesia: General Estimated Blood Loss (mls): 25 Operative Report Dictated: Yes Code(s): L89.159 - PRESSURE ULCER OF SACRAL REGION, UNSPECIFIED STAGE Qualifiers: Pressure ulcer stage: stage 3 Qualified Code(s): L89.153 - Pressure ulcer of sacral region, stage 3 (2) Chronic diarrhea Assessment/Plan: seen by GI stool studies c diff negative Code(s): K52.9 - NONINFECTIVE GASTROENTERITIS AND COLITIS, UNSPECIFIED (3) A-fib Assessment/Plan: restart couamdin once cleared by vascular surgery Code(s): I48.91 - UNSPECIFIED ATRIAL FIBRILLATION Qualifiers: Atrial fibrillation type: chronic Qualified Code(s): I48.2 - Chronic atrial fibrillation (4) Dementia Assessment/Plan: aricept Code(s): F03.90 - UNSPECIFIED DEMENTIA WITHOUT BEHAVIORAL DISTURBANCE Qualifiers: Dementia type: Parkinson's disease Dementia behavioral disturbance: with behavioral disturbance Qualified Code(s): G20 - Parkinson's disease (5) PEG (percutaneous endoscopic gastrostomy) adjustment/replacement/removal Assessment/Plan: s/p peg tube replacement awaiting gastrograffin test result to restart the tUbe feeding Code(s): Z43.1 - ENCOUNTER FOR ATTENTION TO GASTROSTOMY (6) Leukocytosis Assessment/Plan: ID on board cultures pending on iv antibiotic Microbiology 07/26/17 06:31 Decubiti Gram Stain - Final 07/26/17 06:31 Decubiti Wound Culture - Final Pseudomonas Aeruginosa Acinetobacter Baumannii/Haemol Mr S Aureus Enterococcus Faecalis Vr Ec Faecalis Proteus Mirabilis 07/25/17 11:18 Urine - Urine - Catheterized Urine Culture - Final Pseudomonas Aeruginosa Vr Ec Faecalis Code(s): D72.829 - ELEVATED WHITE BLOOD CELL COUNT, UNSPECIFIED
--- NOTE | 2017-07-31 13:40 | PN ---
GI Progress Note Subjective: GI NOte: Gastrograffin study confirms intragastric location of the new PEG tube. This tube has resolved the leak but need to see what happens when feeding begins. - Objective Vital Signs: Vital Signs Temperature 98 F 07/31/17 09:08 Pulse Rate 86 07/31/17 09:08 Respiratory Rate 12 07/31/17 09:41 Blood Pressure 117/56 07/31/17 09:08 O2 Sat by Pulse Oximetry (%) 98 07/30/17 21:00 Constitutional: No Distress Gastrointestinal Inspection: Yes: Other (PEG well positioned) ...Auscultate: Yes: Normoactive Bowel Sounds ...Palpate: Yes: Soft Labs: CBC, BMP 07/30/17 11:25 07/30/17 11:25 INR, PTT INR 2.38 (0.82-1.09) H 07/30/17 11:25 Assessment/Plan Gastrograffin G tube confirms intragastric location. Will start feedings Problem List - Problems (1) Chronic diarrhea Code(s): K52.9 - NONINFECTIVE GASTROENTERITIS AND COLITIS, UNSPECIFIED (2) PEG (percutaneous endoscopic gastrostomy) adjustment/replacement/removal Code(s): Z43.1 - ENCOUNTER FOR ATTENTION TO GASTROSTOMY (3) Hypoalbuminemia Code(s): E88.09 - OTH DISORDERS OF PLASMA-PROTEIN METABOLISM, NEC
[2017-07-31] MEDS ORDERED: ACETAMINOPHEN 325 MG TABLET (FP) NR SCH (14:15)
[2017-07-31] MEDS ORDERED: oxyCODONE HCL 5 MG TABLET GT SCH (14:15)
[2017-07-31] MEDS: NYSTATIN POWDER 100,000 UNITS/GM - 15 GM TOPICAL POWDER TP SCH (14:30)
--- NOTE | 2017-07-31 14:49 | PN ---
Progress Note (short form) - Note Progress Note: unresponsive trach to vent NAD s/p debridement 07/30, sacrum and heel Vital Signs Period Temp Pulse Resp BP Sys/Limon Pulse Ox Last 24 Hr 97.5 F-98.4 F 84-96 12-23 99-121/56-78 98-100 cor-rrr lungs clear abd soft,+GT ext heel dressings intact unable to examine wounds- no nursing staff available- I will try to return when they do the dressing change CBC, BMP 07/30/17 11:25 07/30/17 11:25 Microbiology 07/28/17 09:06 Stool Gram Stain - Final 07/28/17 09:06 Stool Salmonella/Shigella Culture - Preliminary NO ENTERIC PATHOGENS, 24 HOURS, ON PRIMARY PLATES 07/28/17 09:06 Stool Yersinia Culture - Preliminary NO ENTERIC PATHOGENS, 24 HOURS, ON PRIMARY PLATES 07/28/17 09:06 Stool Vibrio Culture - Final NO GROWTH OF VIBRIO SPECIES OBTAINED 07/28/17 09:06 Stool Escherichia coli 0157 Culture - Final NO GROWTH OF E COLI 0157 OBTAINED 07/25/17 11:18 Blood - Peripheral Venous Blood Culture - Final NO GROWTH AFTER 5 DAYS INCUBATION 07/25/17 11:18 Blood - Peripheral Venous Blood Culture - Final NO GROWTH AFTER 5 DAYS INCUBATION 07/26/17 06:31 Decubiti Gram Stain - Final 07/26/17 06:31 Decubiti Wound Culture - Final Pseudomonas Aeruginosa Acinetobacter Baumannii/Haemol Mr S Aureus Enterococcus Faecalis Vr Ec Faecalis Proteus Mirabilis 07/25/17 11:18 Urine - Urine - Catheterized Urine Culture - Final Pseudomonas Aeruginosa Vr Ec Faecalis 07/26/17 06:00 Stool Clostridium difficile (PCR) - Preliminary 07/27/17 03:20 Stool Clostridium difficile Antigen (FAVIAN) - Final 07/27/17 03:20 Stool Clostridium difficile Toxin Assay - Final a/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 plan to continue antiibotics for another 24-48 hours continue zosyn, and vancomycin suspect urine culture is from chronic bauman- would not treat at this time cdiff is negative strict contact isolation hopefully d/c antibiotics in am f/u cbc Problem List - Problems (1) Leukocytosis Code(s): D72.829 - ELEVATED WHITE BLOOD CELL COUNT, UNSPECIFIED (2) Diarrhea Code(s): R19.7 - DIARRHEA, UNSPECIFIED Qualifiers: Diarrhea type: unspecified type Qualified Code(s): R19.7 - Diarrhea, unspecified (3) Sacral decubitus ulcer Code(s): L89.159 - PRESSURE ULCER OF SACRAL REGION, UNSPECIFIED STAGE Qualifiers: Pressure ulcer stage: stage 3 Qualified Code(s): L89.153 - Pressure ulcer of sacral region, stage 3 (4) Chronic respiratory failure Code(s): J96.10 - CHRONIC RESPIRATORY FAILURE, UNSP W HYPOXIA OR HYPERCAPNIA Qualifiers: Respiratory failure complication: hypoxia Qualified Code(s): J96.11 - Chronic respiratory failure with hypoxia (5) Dementia Code(s): F03.90 - UNSPECIFIED DEMENTIA WITHOUT BEHAVIORAL DISTURBANCE Qualifiers: Dementia type: Parkinson's disease Dementia behavioral disturbance: with behavioral disturbance Qualified Code(s): G20 - Parkinson's disease
--- NOTE | 2017-07-31 15:39 | PN ---
Progress Note, Physician Chief Complaint: Nonverbal/ett mvv History of Present Illness: Well known by me from [facility]. - Current Medication List Current Medications: Active Medications Acetaminophen (Tylenol -) 650 mg PO Q6H PRN PRN Reason: FEVER Acetaminophen (Tylenol -) 325 mg NR Q6H [facility] Albuterol/Ipratropium (Duoneb -) 1 amp NEB RQID [facility] Last Admin: 07/31/17 12:36 Dose: 1 amp Amino Acids (Prosource No Carb Liquid Pkt) 30 ml GT BID@0800,1730 [facility] Last Admin: 07/31/17 09:14 Dose: 30 ml Ascorbic Acid (Vitamin C Oral Solution -) 500 mg GT DAILY [facility] Last Admin: 07/31/17 09:16 Dose: 500 mg Calcium Carbonate/Cholecalciferol (Os-Frankie 500+D -) 1 tab GT DAILY [facility] Last Admin: 07/31/17 09:16 Dose: 1 tab Carbidopa/Levodopa (Sinemet 25/100 -) 1 each GT BID [facility] Last Admin: 07/31/17 09:15 Dose: 1 each Cholestyramine Resin (Questran Packet -) 4 gm GT TID [facility] Last Admin: 07/31/17 14:58 Dose: 4 gm Collagenase (Santyl -) 1 applic TP DAILY [facility] Donepezil HCl (Aricept -) 10 mg GT HS [facility] Last Admin: 07/31/17 02:46 Dose: 10 mg Furosemide (Lasix -) 40 mg GT BID@0600,1400 [facility] Last Admin: 07/31/17 14:44 Dose: 40 mg Lactated Ringer's (Lactated Ringers Solution) 1,000 mls @ 75 mls/hr IV ASDIR [facility] Last Admin: 07/30/17 18:20 Dose: Not Given Vancomycin HCl 1,500 mg/ (Sodium Chloride) 500 mls @ 250 mls/hr IVPB DAILY@ 1900 [facility] PRN Reason: Protocol Last Admin: 07/30/17 20:35 Dose: 250 mls/hr Piperacillin Sod/Tazobactam (Sod 3.375 gm/ Dextrose) 100 mls @ 200 mls/hr IVPB Q8H-IV [facility] Last Admin: 07/31/17 09:17 Dose: 200 mls/hr Lactobacillus Acidophilus (Bacid -) 1 tab GT DAILY [facility] Last Admin: 07/31/17 09:15 Dose: 1 tab Loperamide HCl (Imodium Liquid -) 2 mg GT Q6H PRN PRN Reason: DIARRHEA Metronidazole (Flagyl -) 500 mg PO TID [facility] Last Admin: 07/31/17 14:44 Dose: 500 mg Nystatin (Nystop Powder -) 1 applic TP DAILY [facility] Oxycodone HCl (Roxicodone -) 5 mg GT Q6H [facility] Potassium Chloride (Potassium Chloride Oral Liquid) 40 meq GT DAILY [facility] Last Admin: 07/31/17 09:15 Dose: 40 meq Ranitidine HCl (Zantac Oral Solution -) 150 mg GT DAILY [facility] Last Admin: 07/31/17 09:14 Dose: 150 mg Scopolamine HBr (Transderm-Scop -) 1 patch TD Q72H [facility] Silver Sulfadiazine (Silvadene -) 1 applic TP DAILY [facility] Zinc Sulfate (Orazinc -) 220 mg GT BID [facility] Last Admin: 07/31/17 09:15 Dose: 220 mg - Objective Vital Signs: Vital Signs Temperature 98 F 07/31/17 14:15 Pulse Rate 98 H 07/31/17 14:15 Respiratory Rate 12 07/31/17 14:15 Blood Pressure 130/81 07/31/17 14:15 O2 Sat by Pulse Oximetry (%) 98 07/30/17 21:00 Constitutional: Yes: Pallor HENT: Yes: Normocephalic Neck: Yes: Other (TRACH IN PLACE) Cardiovascular: Yes: Regular Rate and Rhythm, S1, S2 Respiratory: Yes: Rhonchi (MINIMAL SCATTERED BILATERALLY) Gastrointestinal: Yes: Soft ...Rectal Exam: Yes: Other (RECTAL TUBE IN PLACE) Edema: LLE: 3+, RLE: 3+ Wound/Incision: Yes: Other (SACRAL DECUBITI/HEEL DECUBITI DEBRIDED) Labs: CBC, BMP 07/30/17 11:25 07/30/17 11:25 INR, PTT INR 2.38 (0.82-1.09) H 07/30/17 11:25 REST REVIEWED Problem List - Problems (1) Chronic diarrhea Code(s): K52.9 - NONINFECTIVE GASTROENTERITIS AND COLITIS, UNSPECIFIED (2) Hypoalbuminemia Code(s): E88.09 - OTH DISORDERS OF PLASMA-PROTEIN METABOLISM, NEC (3) PEG (percutaneous endoscopic gastrostomy) adjustment/replacement/removal Code(s): Z43.1 - ENCOUNTER FOR ATTENTION TO GASTROSTOMY (4) Sacral decubitus ulcer Code(s): L89.159 - PRESSURE ULCER OF SACRAL REGION, UNSPECIFIED STAGE Qualifiers: Pressure ulcer stage: stage 3 Qualified Code(s): L89.153 - Pressure ulcer of sacral region, stage 3 (5) A-fib Code(s): I48.91 - UNSPECIFIED ATRIAL FIBRILLATION Qualifiers: Atrial fibrillation type: chronic Qualified Code(s): I48.2 - Chronic atrial fibrillation (6) Acute on chronic diastolic CHF (congestive heart failure) Code(s): I50.33 - ACUTE ON CHRONIC DIASTOLIC (CONGESTIVE) HEART FAILURE (7) Acute respiratory failure with hypoxia Code(s): J96.01 - ACUTE RESPIRATORY FAILURE WITH HYPOXIA (8) Chronic osteomyelitis Code(s): M86.60 - OTHER CHRONIC OSTEOMYELITIS, UNSPECIFIED SITE (9) Foot ulcer Code(s): L97.509 - NON-PRESSURE CHRONIC ULCER OTH PRT UNSP FOOT W UNSP SEVERITY Qualifiers: Laterality: left (10) Parkinson disease Code(s): G20 - PARKINSON'S DISEASE (11) Pressure ulcer Code(s): L89.90 - PRESSURE ULCER OF UNSPECIFIED SITE, UNSPECIFIED STAGE Qualifiers: Pressure ulcer stage: stage II Qualified Code(s): L89.92 - Pressure ulcer of unspecified site, stage 2 (12) Respiratory failure Code(s): J96.90 - RESPIRATORY FAILURE, UNSP, UNSP W HYPOXIA OR HYPERCAPNIA Qualifiers: Chronicity: acute Respiratory failure complication: hypoxia and hypercapnia Qualified Code(s): J96.01 - Acute respiratory failure with hypoxia Assessment/Plan Maintain current vent settings Not a candidate for wean at this time BD TX PRN Wound care underway SHANTHI ROMANO MD
[2017-07-31] MEDS: SILVER SULFADIAZINE 1% TOP CREAM 50 GM JAR TP SCH (18:13)
[2017-07-31] MEDS: COLLAGENASE CLOSTRIDIUM HIST. 30 GRAMS TUBE TP SCH (18:13)
[2017-07-31] MEDS: VANCOMYCIN 1,500 MG in SODIUM CHLORIDE 500 ML IVPB SCH (19:20)
[2017-07-31] MEDS: SCOPOLAMINE HYDROBROMIDE 1 PATCH PATCH.TD72 TD SCH (23:16)
[2017-08-01] MEDS: PIPERACILLIN/TAZOB 3.375 GM 3.375 GM in DEXTROSE 5%-WATER - 100 ML IVPB SCH ×3 (01:55→17:57)
[2017-08-01] MEDS: ACETAMINOPHEN 325 MG TABLET (FP) NR SCH ×4 (04:50→22:13)
[2017-08-01] MEDS: oxyCODONE HCL 5 MG TABLET GT SCH ×4 (04:51→22:13)
[2017-08-01] MEDS: metroNIDAZOLE 250 MG TABLET PO SCH ×3 (06:24→22:13)
[2017-08-01] MEDS: FUROSEMIDE 40 MG TABLET (FP) GT SCH ×2 (06:24→13:52)
[2017-08-01] MEDS: CHOLESTYRAMINE/SUCROSE 4 GM PACKET GT SCH ×3 (06:25→22:14)
[2017-08-01 08:22] LABS: HEMATOCRIT 32.2 % (35.4-49); HEMOGLOBIN 9.9 GM/dL (11.7-16.9); MCH 25.8 pg (25.7-33.7); MCHC 30.7 g/dl (32.0-35.9); MEAN CELL VOLUME 84.1 fl (80-96); MEAN PLT VOLUME 8.5 fl (7.5-11.1); PLATELET COUNT 434 K/MM3 (134-434); RBC 3.83 M/mm3 (4.00-5.60); RDW 16.3 % (11.9-15.9); WHITE BLOOD COUNT 14.6 K/mm3 (4.0-10.0)
[2017-08-01] MEDS: ALBUTEROL SO4 2.5/IPRATROPIUM 0.5 INH SOL 3 ML VIAL.NEB. NEB SCH ×4 (08:40→20:09)
[2017-08-01 08:41] LABS: INR 2.11 (0.82-1.09); PROTHROMBIN TIME (PATIENT) 23.8 SEC (9.98-11.88)
--- NOTE | 2017-08-01 10:32 | PN ---
Progress Note, Physician Chief Complaint: Nonverbal/ett mvv 12/500/35/5 History of Present Illness: Well known by me from [facility]. - Current Medication List Current Medications: Active Medications Acetaminophen (Tylenol -) 650 mg PO Q6H PRN PRN Reason: FEVER Acetaminophen (Tylenol -) 325 mg NR Q6H [facility] Last Admin: 08/01/17 04:50 Dose: 325 mg Albuterol/Ipratropium (Duoneb -) 1 amp NEB RQID [facility] Last Admin: 08/01/17 08:40 Dose: 1 amp Amino Acids (Prosource No Carb Liquid Pkt) 30 ml GT BID@0800,1730 [facility] Last Admin: 07/31/17 18:14 Dose: 30 ml Ascorbic Acid (Vitamin C Oral Solution -) 500 mg GT DAILY [facility] Last Admin: 07/31/17 09:16 Dose: 500 mg Calcium Carbonate/Cholecalciferol (Os-Frankie 500+D -) 1 tab GT DAILY [facility] Last Admin: 07/31/17 09:16 Dose: 1 tab Carbidopa/Levodopa (Sinemet 25/100 -) 1 each GT BID [facility] Last Admin: 07/31/17 23:13 Dose: 1 each Cholestyramine Resin (Questran Packet -) 4 gm GT TID [facility] Last Admin: 08/01/17 06:25 Dose: 4 gm Collagenase (Santyl -) 1 applic TP DAILY [facility] Last Admin: 07/31/17 18:13 Dose: 1 applic Donepezil HCl (Aricept -) 10 mg GT HS [facility] Last Admin: 07/31/17 23:12 Dose: 10 mg Furosemide (Lasix -) 40 mg GT BID@0600,1400 [facility] Last Admin: 08/01/17 06:24 Dose: 40 mg Lactated Ringer's (Lactated Ringers Solution) 1,000 mls @ 75 mls/hr IV ASDIR [facility] Last Admin: 07/30/17 18:20 Dose: Not Given Vancomycin HCl 1,500 mg/ (Sodium Chloride) 500 mls @ 250 mls/hr IVPB DAILY@ 1900 EMMANUEL PRN Reason: Protocol Last Admin: 07/31/17 19:20 Dose: 250 mls/hr Piperacillin Sod/Tazobactam (Sod 3.375 gm/ Dextrose) 100 mls @ 200 mls/hr IVPB Q8H-IV [facility] Last Admin: 08/01/17 01:55 Dose: 200 mls/hr Lactobacillus Acidophilus (Bacid -) 1 tab GT DAILY [facility] Last Admin: 07/31/17 09:15 Dose: 1 tab Loperamide HCl (Imodium Liquid -) 2 mg GT Q6H PRN PRN Reason: DIARRHEA Metronidazole (Flagyl -) 500 mg PO TID [facility] Last Admin: 08/01/17 06:24 Dose: 500 mg Nystatin (Nystop Powder -) 1 applic TP DAILY [facility] Last Admin: 07/31/17 14:30 Dose: 1 applic Oxycodone HCl (Roxicodone -) 5 mg GT Q6H [facility] Last Admin: 08/01/17 04:51 Dose: 5 mg Potassium Chloride (Potassium Chloride Oral Liquid) 40 meq GT DAILY [facility] Last Admin: 07/31/17 09:15 Dose: 40 meq Ranitidine HCl (Zantac Oral Solution -) 150 mg GT DAILY [facility] Last Admin: 07/31/17 09:14 Dose: 150 mg Scopolamine HBr (Transderm-Scop -) 1 patch TD Q72H [facility] Last Admin: 07/31/17 23:16 Dose: 1 patch Silver Sulfadiazine (Silvadene -) 1 applic TP DAILY [facility] Last Admin: 07/31/17 18:13 Dose: 1 applic Zinc Sulfate (Orazinc -) 220 mg GT BID [facility] Last Admin: 07/31/17 23:12 Dose: 220 mg - Objective Vital Signs: Vital Signs Temperature 99.1 F 08/01/17 05:00 Pulse Rate 86 08/01/17 05:00 Respiratory Rate 12 08/01/17 08:40 Blood Pressure 95/56 08/01/17 05:00 O2 Sat by Pulse Oximetry (%) 99 07/31/17 11:00 Constitutional: Yes: Pallor Eyes: Yes: EOM Intact HENT: Yes: Normocephalic Neck: Yes: Trachea Midline Cardiovascular: Yes: S1, S2 Respiratory: Yes: CTA Bilaterally Gastrointestinal: Yes: Normal Bowel Sounds Edema: LLE: 2+, RLE: 2+ Neurological: Yes: Pre-Existing Deficit Labs: CBC, BMP 08/01/17 07:20 07/30/17 11:25 INR, PTT INR 2.11 (0.82-1.09) H 08/01/17 07:20 - ....Imaging Chest X-ray: Report Reviewed, Image Reviewed X-ray: Report Reviewed, Image Reviewed EKG: Report Reviewed, Image Reviewed Problem List - Problems (1) Chronic diarrhea Code(s): K52.9 - NONINFECTIVE GASTROENTERITIS AND COLITIS, UNSPECIFIED (2) Hypoalbuminemia Code(s): E88.09 - OTH DISORDERS OF PLASMA-PROTEIN METABOLISM, NEC (3) PEG (percutaneous endoscopic gastrostomy) adjustment/replacement/removal Code(s): Z43.1 - ENCOUNTER FOR ATTENTION TO GASTROSTOMY (4) Sacral decubitus ulcer Code(s): L89.159 - PRESSURE ULCER OF SACRAL REGION, UNSPECIFIED STAGE Qualifiers: Pressure ulcer stage: stage 3 Qualified Code(s): L89.153 - Pressure ulcer of sacral region, stage 3 (5) A-fib Code(s): I48.91 - UNSPECIFIED ATRIAL FIBRILLATION Qualifiers: Atrial fibrillation type: chronic Qualified Code(s): I48.2 - Chronic atrial fibrillation (6) Acute on chronic diastolic CHF (congestive heart failure) Code(s): I50.33 - ACUTE ON CHRONIC DIASTOLIC (CONGESTIVE) HEART FAILURE (7) Acute respiratory failure with hypoxia Code(s): J96.01 - ACUTE RESPIRATORY FAILURE WITH HYPOXIA (8) Chronic osteomyelitis Code(s): M86.60 - OTHER CHRONIC OSTEOMYELITIS, UNSPECIFIED SITE (9) Foot ulcer Code(s): L97.509 - NON-PRESSURE CHRONIC ULCER OTH PRT UNSP FOOT W UNSP SEVERITY Qualifiers: Laterality: left (10) Parkinson disease Code(s): G20 - PARKINSON'S DISEASE (11) Pressure ulcer Code(s): L89.90 - PRESSURE ULCER OF UNSPECIFIED SITE, UNSPECIFIED STAGE Qualifiers: Pressure ulcer stage: stage II Qualified Code(s): L89.92 - Pressure ulcer of unspecified site, stage 2 (12) Respiratory failure Code(s): J96.90 - RESPIRATORY FAILURE, UNSP, UNSP W HYPOXIA OR HYPERCAPNIA Qualifiers: Chronicity: acute Respiratory failure complication: hypoxia and hypercapnia Qualified Code(s): J96.01 - Acute respiratory failure with hypoxia Assessment/Plan Maintain current vent settings 12/500/35/5 Not a candidate for wean at this time BD TX PRN Wound care underway HSANTHI ROMANO MD
[2017-08-01] MEDS ORDERED: POTASSIUM CHLORIDE ORAL LIQUID 20 MEQ/15 ML PO ONE (11:53)
--- NOTE | 2017-08-01 11:59 | PN ---
Progress Note, Physician - Current Medication List Current Medications: Active Medications Acetaminophen (Tylenol -) 650 mg PO Q6H PRN PRN Reason: FEVER Acetaminophen (Tylenol -) 325 mg NR Q6H [facility] Last Admin: 08/01/17 04:50 Dose: 325 mg Albuterol/Ipratropium (Duoneb -) 1 amp NEB RQID [facility] Last Admin: 08/01/17 11:55 Dose: 1 amp Amino Acids (Prosource No Carb Liquid Pkt) 30 ml GT BID@0800,1730 [facility] Last Admin: 07/31/17 18:14 Dose: 30 ml Ascorbic Acid (Vitamin C Oral Solution -) 500 mg GT DAILY [facility] Last Admin: 07/31/17 09:16 Dose: 500 mg Calcium Carbonate/Cholecalciferol (Os-Frankie 500+D -) 1 tab GT DAILY [facility] Last Admin: 07/31/17 09:16 Dose: 1 tab Carbidopa/Levodopa (Sinemet 25/100 -) 1 each GT BID [facility] Last Admin: 07/31/17 23:13 Dose: 1 each Cholestyramine Resin (Questran Packet -) 4 gm GT TID [facility] Last Admin: 08/01/17 06:25 Dose: 4 gm Collagenase (Santyl -) 1 applic TP DAILY [facility] Last Admin: 07/31/17 18:13 Dose: 1 applic Donepezil HCl (Aricept -) 10 mg GT HS [facility] Last Admin: 07/31/17 23:12 Dose: 10 mg Furosemide (Lasix -) 40 mg GT BID@0600,1400 [facility] Last Admin: 08/01/17 06:24 Dose: 40 mg Lactated Ringer's (Lactated Ringers Solution) 1,000 mls @ 75 mls/hr IV ASDIR [facility] Last Admin: 07/30/17 18:20 Dose: Not Given Vancomycin HCl 1,500 mg/ (Sodium Chloride) 500 mls @ 250 mls/hr IVPB DAILY@ 1900 EMMANUEL PRN Reason: Protocol Last Admin: 07/31/17 19:20 Dose: 250 mls/hr Piperacillin Sod/Tazobactam (Sod 3.375 gm/ Dextrose) 100 mls @ 200 mls/hr IVPB Q8H-IV [facility] Last Admin: 08/01/17 01:55 Dose: 200 mls/hr Lactobacillus Acidophilus (Bacid -) 1 tab GT DAILY [facility] Last Admin: 07/31/17 09:15 Dose: 1 tab Loperamide HCl (Imodium Liquid -) 2 mg GT Q6H PRN PRN Reason: DIARRHEA Metronidazole (Flagyl -) 500 mg PO TID [facility] Last Admin: 08/01/17 06:24 Dose: 500 mg Nystatin (Nystop Powder -) 1 applic TP DAILY [facility] Last Admin: 07/31/17 14:30 Dose: 1 applic Oxycodone HCl (Roxicodone -) 5 mg GT Q6H [facility] Last Admin: 08/01/17 04:51 Dose: 5 mg Potassium Chloride (Potassium Chloride Oral Liquid) 40 meq GT DAILY [facility] Last Admin: 07/31/17 09:15 Dose: 40 meq Ranitidine HCl (Zantac Oral Solution -) 150 mg GT DAILY [facility] Last Admin: 07/31/17 09:14 Dose: 150 mg Scopolamine HBr (Transderm-Scop -) 1 patch TD Q72H [facility] Last Admin: 07/31/17 23:16 Dose: 1 patch Silver Sulfadiazine (Silvadene -) 1 applic TP DAILY [facility] Last Admin: 07/31/17 18:13 Dose: 1 applic Zinc Sulfate (Orazinc -) 220 mg GT BID [facility] Last Admin: 07/31/17 23:12 Dose: 220 mg - Objective Vital Signs: Vital Signs Temperature 97.4 F L 08/01/17 09:00 Pulse Rate 94 H 08/01/17 09:00 Respiratory Rate 13 08/01/17 11:53 Blood Pressure 111/63 08/01/17 09:00 O2 Sat by Pulse Oximetry (%) 99 07/31/17 11:00 Labs: CBC, BMP 08/01/17 07:20 07/30/17 11:25 INR, PTT INR 2.11 (0.82-1.09) H 08/01/17 07:20 Problem List - Problems (1) Leukocytosis Code(s): D72.829 - ELEVATED WHITE BLOOD CELL COUNT, UNSPECIFIED (2) Sacral decubitus ulcer Code(s): L89.159 - PRESSURE ULCER OF SACRAL REGION, UNSPECIFIED STAGE Qualifiers: Pressure ulcer stage: stage 3 Qualified Code(s): L89.153 - Pressure ulcer of sacral region, stage 3 (3) A-fib Code(s): I48.91 - UNSPECIFIED ATRIAL FIBRILLATION Qualifiers: Atrial fibrillation type: chronic Qualified Code(s): I48.2 - Chronic atrial fibrillation (4) CHF (congestive heart failure) Code(s): I50.9 - HEART FAILURE, UNSPECIFIED (5) UTI (lower urinary tract infection) Code(s): N39.0 - URINARY TRACT INFECTION, SITE NOT SPECIFIED Assessment/Plan - Problems (1) Sacral decubitus ulcer Assessment/Plan: collagenase wound care frequent turn and position - Note: Operative Date: 07/30/17 Pre-Operative Diagnosis: Necrotic sacral ulcer, right heel ulcer Operation: Excisional debridement sacrum skin, subcutaneous tissue, muscle. Excisional debridement right heel skin, subcutaneous tissue Findings: necrotic sacrum Post-Operative Diagnosis: Same as Pre-op Surgeon: Gutierrez Rosario Anesthesia: General Estimated Blood Loss (mls): 25 Operative Report Dictated: Yes Code(s): L89.159 - PRESSURE ULCER OF SACRAL REGION, UNSPECIFIED STAGE Qualifiers: Pressure ulcer stage: stage 3 Qualified Code(s): L89.153 - Pressure ulcer of sacral region, stage 3 (2) Chronic diarrhea Assessment/Plan: seen by GI stool studies c diff negative Code(s): K52.9 - NONINFECTIVE GASTROENTERITIS AND COLITIS, UNSPECIFIED (3) A-fib Assessment/Plan: restart couamdin once cleared by vascular surgery Code(s): I48.91 - UNSPECIFIED ATRIAL FIBRILLATION Qualifiers: Atrial fibrillation type: chronic Qualified Code(s): I48.2 - Chronic atrial fibrillation (4) Dementia Assessment/Plan: aricept Code(s): F03.90 - UNSPECIFIED DEMENTIA WITHOUT BEHAVIORAL DISTURBANCE Qualifiers: Dementia type: Parkinson's disease Dementia behavioral disturbance: with behavioral disturbance Qualified Code(s): G20 - Parkinson's disease (5) PEG (percutaneous endoscopic gastrostomy) adjustment/replacement/removal Assessment/Plan: s/p peg tube replacement awaiting gastrograffin test result to restart the tUbe feeding Code(s): Z43.1 - ENCOUNTER FOR ATTENTION TO GASTROSTOMY (6) Leukocytosis Assessment/Plan: ID on board cultures pending on iv antibiotic Microbiology 07/26/17 06:31 Decubiti Gram Stain - Final 07/26/17 06:31 Decubiti Wound Culture - Final Pseudomonas Aeruginosa Acinetobacter Baumannii/Haemol Mr S Aureus Enterococcus Faecalis Vr Ec Faecalis Proteus Mirabilis 07/25/17 11:18 Urine - Urine - Catheterized Urine Culture - Final Pseudomonas Aeruginosa Vr Ec Faecalis Code(s): D72.829 - ELEVATED WHITE BLOOD CELL COUNT, UNSPECIFIED
[2017-08-01] MEDS ORDERED: PT OWN MED DRAWER 7, Y5N ONE ×2 (12:01→17:13)
[2017-08-01] MEDS: AMINO ACIDS/PROTEIN HYDROLYS 30 ML LIQUID.PKT GT SCH ×2 (12:07→17:56)
[2017-08-01] MEDS: CALCIUM 500MG/VIT-D 200 UNITS COMBO TABLET (FP) GT SCH (12:08)
[2017-08-01] MEDS: ZINC SULFATE 220 MG CAPSULE (FP) GT SCH ×2 (12:08→22:13)
[2017-08-01] MEDS: CARBIDOPA/LEVODOPA 25/100 TABLET (FP) GT SCH ×2 (12:08→22:13)
[2017-08-01] MEDS: ASCORBIC ACID 500 MG/5 ML UNIT DOSE CUP GT SCH (12:08)
[2017-08-01] MEDS: RANITIDINE HCL 150 MG/10 ML UNIT-DOSE GT SCH (12:08)
[2017-08-01] MEDS: LACTOBACILLUS ACIDOPHILUS 1 EACH TAB (FP) GT SCH (12:08)
[2017-08-01] MEDS: COLLAGENASE CLOSTRIDIUM HIST. 30 GRAMS TUBE TP SCH (12:09)
[2017-08-01] MEDS: SILVER SULFADIAZINE 1% TOP CREAM 50 GM JAR TP SCH (12:11)
[2017-08-01] MEDS: NYSTATIN POWDER 100,000 UNITS/GM - 15 GM TOPICAL POWDER TP SCH (12:11)
[2017-08-01] MEDS: POTASSIUM CHLORIDE ORAL LIQUID 20 MEQ/15 ML GT SCH ×2 (12:17→13:52)
[2017-08-01] MEDS: LACTATED RINGERS SOLUTION 1,000 ML IV SCH ×2 (17:55→19:21)
[2017-08-01] MEDS: WARFARIN NA 1 MG TABLET (FP) PO SCH (17:57)
[2017-08-01] MEDS: VANCOMYCIN 1,500 MG in SODIUM CHLORIDE 500 ML IVPB SCH (19:04)
[2017-08-01] MEDS: DONEPEZIL HCL 10 MG TABLET (FP) GT SCH (22:13)
[2017-08-02] MEDS: PIPERACILLIN/TAZOB 3.375 GM 3.375 GM in DEXTROSE 5%-WATER - 100 ML IVPB SCH ×3 (01:36→17:34)
[2017-08-02] MEDS: oxyCODONE HCL 5 MG TABLET GT SCH ×4 (05:09→22:29)
[2017-08-02] MEDS: ACETAMINOPHEN 325 MG TABLET (FP) NR SCH ×4 (05:09→22:28)
[2017-08-02] MEDS: metroNIDAZOLE 250 MG TABLET PO SCH ×2 (06:11→14:12)
[2017-08-02] MEDS: FUROSEMIDE 40 MG TABLET (FP) GT SCH ×2 (06:11→14:12)
[2017-08-02] MEDS: CHOLESTYRAMINE/SUCROSE 4 GM PACKET GT SCH ×3 (06:12→22:29)
[2017-08-02 08:05] LABS: BASO % 0.5 % (0-2.0); HEMATOCRIT 33.3 % (35.4-49); LYMPH % 17.3 % (8-40); MCH 25.5 pg (25.7-33.7); MCHC 30.2 g/dl (32.0-35.9); MEAN CELL VOLUME 84.5 fl (80-96); MEAN PLT VOLUME 8.8 fl (7.5-11.1); MONO % 9.3 % (3.8-10.2); NEUT % 65.9 % (42.8-82.8); PLATELET COUNT 437 K/MM3 (134-434); RBC 3.94 M/mm3 (4.00-5.60); RDW 16.9 % (11.9-15.9); WHITE BLOOD COUNT 15.2 K/mm3 (4.0-10.0)
[2017-08-02 08:24] LABS: CHLORIDE 111 mmol/L (98-107); POTASSIUM 4.1 mmol/L (3.5-5.1); SODIUM 145 mmol/L (136-145)
[2017-08-02 08:28] LABS: INR 2.27 (0.82-1.09); PROTHROMBIN TIME (PATIENT) 25.6 SEC (9.98-11.88)
[2017-08-02] MEDS: ALBUTEROL SO4 2.5/IPRATROPIUM 0.5 INH SOL 3 ML VIAL.NEB. NEB SCH ×4 (08:40→20:05)
[2017-08-02 08:41] LABS: ALBUMIN 1.7 g/dl (3.4-5.0); ALK PHOS 95 U/L (45-117); ANION GAP 7 (8-16); BILIRUBIN,TOTAL 0.3 mg/dL (0.2-1.0); BLOOD UREA NITROGEN 22 mg/dL (7-18); CALCIUM 7.6 mg/dL (8.5-10.1); CO2 27 mmol/L (21-32); CREATININE 0.7 mg/dL (0.7-1.3); GLUCOSE,RANDOM 125 mg/dL (74-106); SGOT/AST 19 U/L (15-37); SGPT/ALT 15 U/L (12-78); TOT PROT 6.7 g/dl (6.4-8.2)
--- NOTE | 2017-08-02 10:23 | PN ---
Progress Note, Physician - Current Medication List Current Medications: Active Medications Acetaminophen (Tylenol -) 650 mg PO Q6H PRN PRN Reason: FEVER Acetaminophen (Tylenol -) 325 mg NR Q6H [facility] Last Admin: 08/02/17 05:09 Dose: 325 mg Albuterol/Ipratropium (Duoneb -) 1 amp NEB RQID [facility] Last Admin: 08/02/17 08:40 Dose: 1 amp Amino Acids (Prosource No Carb Liquid Pkt) 30 ml GT BID@0800,1730 [facility] Last Admin: 08/01/17 17:56 Dose: 30 ml Ascorbic Acid (Vitamin C Oral Solution -) 500 mg GT DAILY [facility] Last Admin: 08/01/17 12:08 Dose: 500 mg Calcium Carbonate/Cholecalciferol (Os-Frankie 500+D -) 1 tab GT DAILY [facility] Last Admin: 08/01/17 12:08 Dose: 1 tab Carbidopa/Levodopa (Sinemet 25/100 -) 1 each GT BID [facility] Last Admin: 08/01/17 22:13 Dose: 1 each Cholestyramine Resin (Questran Packet -) 4 gm GT TID [facility] Last Admin: 08/02/17 06:12 Dose: 4 gm Collagenase (Santyl -) 1 applic TP DAILY [facility] Last Admin: 08/01/17 12:09 Dose: 1 applic Donepezil HCl (Aricept -) 10 mg GT HS [facility] Last Admin: 08/01/17 22:13 Dose: 10 mg Furosemide (Lasix -) 40 mg GT BID@0600,1400 [facility] Last Admin: 08/02/17 06:11 Dose: 40 mg Lactated Ringer's (Lactated Ringers Solution) 1,000 mls @ 75 mls/hr IV ASDIR [facility] Last Admin: 08/01/17 19:21 Dose: Not Given Vancomycin HCl 1,500 mg/ (Sodium Chloride) 500 mls @ 250 mls/hr IVPB DAILY@ 1900 EMMANUEL PRN Reason: Protocol Last Admin: 08/01/17 19:04 Dose: 250 mls/hr Piperacillin Sod/Tazobactam (Sod 3.375 gm/ Dextrose) 100 mls @ 200 mls/hr IVPB Q8H-IV [facility] Last Admin: 08/02/17 01:36 Dose: 200 mls/hr Lactobacillus Acidophilus (Bacid -) 1 tab GT DAILY [facility] Last Admin: 08/01/17 12:08 Dose: 1 tab Loperamide HCl (Imodium Liquid -) 2 mg GT Q6H PRN PRN Reason: DIARRHEA Metronidazole (Flagyl -) 500 mg PO TID [facility] Last Admin: 08/02/17 06:11 Dose: 500 mg Nystatin (Nystop Powder -) 1 applic TP DAILY [facility] Last Admin: 08/01/17 12:11 Dose: 1 applic Oxycodone HCl (Roxicodone -) 5 mg GT Q6H [facility] Last Admin: 08/02/17 05:09 Dose: 5 mg Potassium Chloride (Potassium Chloride Oral Liquid) 60 meq GT DAILY [facility] Ranitidine HCl (Zantac Oral Solution -) 150 mg GT DAILY [facility] Last Admin: 08/01/17 12:08 Dose: 150 mg Scopolamine HBr (Transderm-Scop -) 1 patch TD Q72H [facility] Last Admin: 07/31/17 23:16 Dose: 1 patch Silver Sulfadiazine (Silvadene -) 1 applic TP DAILY [facility] Last Admin: 08/01/17 12:11 Dose: 1 applic Warfarin Sodium (Coumadin -) 3.5 mg PO DAILY@1800 [facility] Last Admin: 08/01/17 17:57 Dose: 3.5 mg Zinc Sulfate (Orazinc -) 220 mg GT BID [facility] Last Admin: 08/01/17 22:13 Dose: 220 mg - Objective Vital Signs: Vital Signs Temperature 99.6 F 08/02/17 06:00 Pulse Rate 88 08/02/17 06:00 Respiratory Rate 15 08/02/17 08:55 Blood Pressure 109/72 08/02/17 06:00 O2 Sat by Pulse Oximetry (%) 99 07/31/17 11:00 Cardiovascular: Yes: S1, S2 Respiratory: Yes: Mechanically Ventilated Gastrointestinal: Yes: Normal Bowel Sounds, Soft Labs: CBC, BMP 08/02/17 06:30 08/02/17 06:30 INR, PTT INR 2.27 (0.82-1.09) H 08/02/17 06:30 Problem List - Problems (1) Leukocytosis Code(s): D72.829 - ELEVATED WHITE BLOOD CELL COUNT, UNSPECIFIED (2) Sacral decubitus ulcer Code(s): L89.159 - PRESSURE ULCER OF SACRAL REGION, UNSPECIFIED STAGE Qualifiers: Pressure ulcer stage: stage 3 Qualified Code(s): L89.153 - Pressure ulcer of sacral region, stage 3 (3) A-fib Code(s): I48.91 - UNSPECIFIED ATRIAL FIBRILLATION Qualifiers: Atrial fibrillation type: chronic Qualified Code(s): I48.2 - Chronic atrial fibrillation (4) CHF (congestive heart failure) Code(s): I50.9 - HEART FAILURE, UNSPECIFIED (5) UTI (lower urinary tract infection) Code(s): N39.0 - URINARY TRACT INFECTION, SITE NOT SPECIFIED Assessment/Plan - Problems (1) Sacral decubitus ulcer Assessment/Plan: collagenase wound care frequent turn and position - Note: Operative Date: 07/30/17 Pre-Operative Diagnosis: Necrotic sacral ulcer, right heel ulcer Operation: Excisional debridement sacrum skin, subcutaneous tissue, muscle. Excisional debridement right heel skin, subcutaneous tissue Findings: necrotic sacrum Post-Operative Diagnosis: Same as Pre-op Surgeon: Gutierrez Rosario Anesthesia: General Estimated Blood Loss (mls): 25 Operative Report Dictated: Yes Code(s): L89.159 - PRESSURE ULCER OF SACRAL REGION, UNSPECIFIED STAGE Qualifiers: Pressure ulcer stage: stage 3 Qualified Code(s): L89.153 - Pressure ulcer of sacral region, stage 3 (2) Chronic diarrhea Assessment/Plan: seen by GI stool studies c diff negative Code(s): K52.9 - NONINFECTIVE GASTROENTERITIS AND COLITIS, UNSPECIFIED (3) A-fib Assessment/Plan: restart couamdin once cleared by vascular surgery Code(s): I48.91 - UNSPECIFIED ATRIAL FIBRILLATION Qualifiers: Atrial fibrillation type: chronic Qualified Code(s): I48.2 - Chronic atrial fibrillation (4) Dementia Assessment/Plan: aricept Code(s): F03.90 - UNSPECIFIED DEMENTIA WITHOUT BEHAVIORAL DISTURBANCE Qualifiers: Dementia type: Parkinson's disease Dementia behavioral disturbance: with behavioral disturbance Qualified Code(s): G20 - Parkinson's disease (5) PEG (percutaneous endoscopic gastrostomy) adjustment/replacement/removal Assessment/Plan: s/p peg tube replacement awaiting gastrograffin test result to restart the tUbe feeding Code(s): Z43.1 - ENCOUNTER FOR ATTENTION TO GASTROSTOMY (6) Leukocytosis Assessment/Plan: ID on board cultures pending on iv antibiotic Microbiology 07/26/17 06:31 Decubiti Gram Stain - Final 07/26/17 06:31 Decubiti Wound Culture - Final Pseudomonas Aeruginosa Acinetobacter Baumannii/Haemol Mr S Aureus Enterococcus Faecalis Vr Ec Faecalis Proteus Mirabilis 07/25/17 11:18 Urine - Urine - Catheterized Urine Culture - Final Pseudomonas Aeruginosa Vr Ec Faecalis Code(s): D72.829 - ELEVATED WHITE BLOOD CELL COUNT, UNSPECIFIED
[2017-08-02] MEDS: POTASSIUM CHLORIDE ORAL LIQUID 20 MEQ/15 ML GT SCH (10:41)
[2017-08-02] MEDS: CARBIDOPA/LEVODOPA 25/100 TABLET (FP) GT SCH ×2 (10:41→22:28)
[2017-08-02] MEDS: CALCIUM 500MG/VIT-D 200 UNITS COMBO TABLET (FP) GT SCH (10:41)
[2017-08-02] MEDS: LACTOBACILLUS ACIDOPHILUS 1 EACH TAB (FP) GT SCH (10:41)
[2017-08-02] MEDS: ZINC SULFATE 220 MG CAPSULE (FP) GT SCH ×2 (10:41→22:28)
[2017-08-02] MEDS: RANITIDINE HCL 150 MG/10 ML UNIT-DOSE GT SCH (10:41)
[2017-08-02] MEDS: ASCORBIC ACID 500 MG/5 ML UNIT DOSE CUP GT SCH (10:42)
[2017-08-02] MEDS: AMINO ACIDS/PROTEIN HYDROLYS 30 ML LIQUID.PKT GT SCH ×2 (10:42→17:34)
[2017-08-02] MEDS: SILVER SULFADIAZINE 1% TOP CREAM 50 GM JAR TP SCH (10:43)
[2017-08-02] MEDS: COLLAGENASE CLOSTRIDIUM HIST. 30 GRAMS TUBE TP SCH (10:43)
[2017-08-02] MEDS: NYSTATIN POWDER 100,000 UNITS/GM - 15 GM TOPICAL POWDER TP SCH (10:44)
--- NOTE | 2017-08-02 11:29 | PN ---
Progress Note, Physician Chief Complaint: Nonverbal/ett mvv 12/500/35/5 History of Present Illness: Well known by me from [facility]. - Current Medication List Current Medications: Active Medications Acetaminophen (Tylenol -) 650 mg PO Q6H PRN PRN Reason: FEVER Acetaminophen (Tylenol -) 325 mg NR Q6H [facility] Last Admin: 08/02/17 10:41 Dose: 325 mg Albuterol/Ipratropium (Duoneb -) 1 amp NEB RQID [facility] Last Admin: 08/02/17 08:40 Dose: 1 amp Amino Acids (Prosource No Carb Liquid Pkt) 30 ml GT BID@0800,1730 [facility] Last Admin: 08/02/17 10:42 Dose: 30 ml Ascorbic Acid (Vitamin C Oral Solution -) 500 mg GT DAILY [facility] Last Admin: 08/02/17 10:42 Dose: 500 mg Calcium Carbonate/Cholecalciferol (Os-Frankie 500+D -) 1 tab GT DAILY [facility] Last Admin: 08/02/17 10:41 Dose: 1 tab Carbidopa/Levodopa (Sinemet 25/100 -) 1 each GT BID [facility] Last Admin: 08/02/17 10:41 Dose: 1 each Cholestyramine Resin (Questran Packet -) 4 gm GT TID [facility] Last Admin: 08/02/17 06:12 Dose: 4 gm Collagenase (Santyl -) 1 applic TP DAILY [facility] Last Admin: 08/02/17 10:43 Dose: 1 applic Donepezil HCl (Aricept -) 10 mg GT HS [facility] Last Admin: 08/01/17 22:13 Dose: 10 mg Furosemide (Lasix -) 40 mg GT BID@0600,1400 [facility] Last Admin: 08/02/17 06:11 Dose: 40 mg Lactated Ringer's (Lactated Ringers Solution) 1,000 mls @ 75 mls/hr IV ASDIR [facility] Last Admin: 08/01/17 19:21 Dose: Not Given Vancomycin HCl 1,500 mg/ (Sodium Chloride) 500 mls @ 250 mls/hr IVPB DAILY@ 1900 EMMANUEL PRN Reason: Protocol Last Admin: 08/01/17 19:04 Dose: 250 mls/hr Piperacillin Sod/Tazobactam (Sod 3.375 gm/ Dextrose) 100 mls @ 200 mls/hr IVPB Q8H-IV [facility] Last Admin: 08/02/17 10:42 Dose: 200 mls/hr Lactobacillus Acidophilus (Bacid -) 1 tab GT DAILY [facility] Last Admin: 08/02/17 10:41 Dose: 1 tab Loperamide HCl (Imodium Liquid -) 2 mg GT Q6H PRN PRN Reason: DIARRHEA Metronidazole (Flagyl -) 500 mg PO TID [facility] Last Admin: 08/02/17 06:11 Dose: 500 mg Nystatin (Nystop Powder -) 1 applic TP DAILY [facility] Last Admin: 08/02/17 10:44 Dose: 1 applic Oxycodone HCl (Roxicodone -) 5 mg GT Q6H [facility] Last Admin: 08/02/17 10:41 Dose: 5 mg Potassium Chloride (Potassium Chloride Oral Liquid) 60 meq GT DAILY [facility] Last Admin: 08/02/17 10:41 Dose: 60 meq Ranitidine HCl (Zantac Oral Solution -) 150 mg GT DAILY [facility] Last Admin: 08/02/17 10:41 Dose: 150 mg Scopolamine HBr (Transderm-Scop -) 1 patch TD Q72H [facility] Last Admin: 07/31/17 23:16 Dose: 1 patch Silver Sulfadiazine (Silvadene -) 1 applic TP DAILY [facility] Last Admin: 08/02/17 10:43 Dose: 1 applic Warfarin Sodium (Coumadin -) 3.5 mg PO DAILY@1800 [facility] Last Admin: 08/01/17 17:57 Dose: 3.5 mg Zinc Sulfate (Orazinc -) 220 mg GT BID [facility] Last Admin: 08/02/17 10:41 Dose: 220 mg - Objective Vital Signs: Vital Signs Temperature 99.6 F 08/02/17 06:00 Pulse Rate 88 08/02/17 06:00 Respiratory Rate 15 08/02/17 08:55 Blood Pressure 109/72 08/02/17 06:00 O2 Sat by Pulse Oximetry (%) 99 07/31/17 11:00 Constitutional: Yes: Pallor Eyes: Yes: EOM Intact HENT: Yes: Normocephalic Neck: Yes: Trachea Midline Cardiovascular: Yes: S1, S2 Respiratory: Yes: Diminished Gastrointestinal: Yes: Soft Edema: Yes Edema: LLE: 2+, RLE: 2+ Neurological: Yes: Pre-Existing Deficit, Other (opens eyes) Labs: CBC, BMP 08/02/17 06:30 08/02/17 06:30 INR, PTT INR 2.27 (0.82-1.09) H 08/02/17 06:30 - ....Imaging Chest X-ray: Report Reviewed, Image Reviewed EKG: Report Reviewed, Image Reviewed Problem List - Problems (1) Chronic diarrhea Code(s): K52.9 - NONINFECTIVE GASTROENTERITIS AND COLITIS, UNSPECIFIED (2) Hypoalbuminemia Code(s): E88.09 - OTH DISORDERS OF PLASMA-PROTEIN METABOLISM, NEC (3) PEG (percutaneous endoscopic gastrostomy) adjustment/replacement/removal Code(s): Z43.1 - ENCOUNTER FOR ATTENTION TO GASTROSTOMY (4) Sacral decubitus ulcer Code(s): L89.159 - PRESSURE ULCER OF SACRAL REGION, UNSPECIFIED STAGE Qualifiers: Pressure ulcer stage: stage 3 Qualified Code(s): L89.153 - Pressure ulcer of sacral region, stage 3 (5) A-fib Code(s): I48.91 - UNSPECIFIED ATRIAL FIBRILLATION Qualifiers: Atrial fibrillation type: chronic Qualified Code(s): I48.2 - Chronic atrial fibrillation (6) Acute on chronic diastolic CHF (congestive heart failure) Code(s): I50.33 - ACUTE ON CHRONIC DIASTOLIC (CONGESTIVE) HEART FAILURE (7) Acute respiratory failure with hypoxia Code(s): J96.01 - ACUTE RESPIRATORY FAILURE WITH HYPOXIA (8) Chronic osteomyelitis Code(s): M86.60 - OTHER CHRONIC OSTEOMYELITIS, UNSPECIFIED SITE (9) Foot ulcer Code(s): L97.509 - NON-PRESSURE CHRONIC ULCER OTH PRT UNSP FOOT W UNSP SEVERITY Qualifiers: Laterality: left (10) Parkinson disease Code(s): G20 - PARKINSON'S DISEASE (11) Pressure ulcer Code(s): L89.90 - PRESSURE ULCER OF UNSPECIFIED SITE, UNSPECIFIED STAGE Qualifiers: Pressure ulcer stage: stage II Qualified Code(s): L89.92 - Pressure ulcer of unspecified site, stage 2 (12) Respiratory failure Code(s): J96.90 - RESPIRATORY FAILURE, UNSP, UNSP W HYPOXIA OR HYPERCAPNIA Qualifiers: Chronicity: acute Respiratory failure complication: hypoxia and hypercapnia Qualified Code(s): J96.01 - Acute respiratory failure with hypoxia Assessment/Plan Maintain current vent settings 12/500/35/ Not a candidate for wean at this time BD TX PRN Wound care underway SHANTHI ROMANO MD
[2017-08-02] MEDS: WARFARIN NA 1 MG TABLET (FP) PO SCH (17:34)
[2017-08-02] MEDS: VANCOMYCIN 1,500 MG in SODIUM CHLORIDE 500 ML IVPB SCH (18:38)
[2017-08-02] MEDS: DONEPEZIL HCL 10 MG TABLET (FP) GT SCH (22:28)
[2017-08-03] MEDS: PIPERACILLIN/TAZOB 3.375 GM 3.375 GM in DEXTROSE 5%-WATER - 100 ML IVPB SCH ×2 (02:09→09:50)
[2017-08-03] MEDS: ACETAMINOPHEN 325 MG TABLET (FP) NR SCH ×4 (04:08→21:06)
[2017-08-03] MEDS: oxyCODONE HCL 5 MG TABLET GT SCH ×4 (04:09→21:06)
[2017-08-03] MEDS: FUROSEMIDE 40 MG TABLET (FP) GT SCH ×2 (06:03→14:18)
[2017-08-03] MEDS: CHOLESTYRAMINE/SUCROSE 4 GM PACKET GT SCH ×3 (06:03→21:07)
[2017-08-03] MEDS: ALBUTEROL SO4 2.5/IPRATROPIUM 0.5 INH SOL 3 ML VIAL.NEB. NEB SCH ×4 (07:25→21:36)
[2017-08-03 07:34] LABS: BASO % 0.7 % (0-2.0); EOS % 7.8 % (0-4.5); HEMATOCRIT 32.5 % (35.4-49); HEMOGLOBIN 9.8 GM/dL (11.7-16.9); LYMPH % 17.6 % (8-40); MCH 25.7 pg (25.7-33.7); MCHC 30.1 g/dl (32.0-35.9); MEAN CELL VOLUME 85.2 fl (80-96); MEAN PLT VOLUME 8.6 fl (7.5-11.1); MONO % 11.2 % (3.8-10.2); NEUT % 62.7 % (42.8-82.8); PLATELET COUNT 396 K/MM3 (134-434); RBC 3.81 M/mm3 (4.00-5.60); RDW 16.9 % (11.9-15.9); WHITE BLOOD COUNT 14.5 K/mm3 (4.0-10.0)
[2017-08-03 07:57] LABS: ALBUMIN 1.7 g/dl (3.4-5.0); ANION GAP 6 (8-16); BLOOD UREA NITROGEN 23 mg/dL (7-18); CALCIUM 7.4 mg/dL (8.5-10.1); CHLORIDE 110 mmol/L (98-107); CO2 27 mmol/L (21-32); GLUCOSE,RANDOM 116 mg/dL (74-106); POTASSIUM 4.4 mmol/L (3.5-5.1); SGOT/AST 17 U/L (15-37); SGPT/ALT 11 U/L (12-78); SODIUM 143 mmol/L (136-145)
[2017-08-03 07:59] LABS: ALK PHOS 89 U/L (45-117); BILIRUBIN,TOTAL 0.2 mg/dL (0.2-1.0); CREATININE 0.6 mg/dL (0.7-1.3); TOT PROT 6.5 g/dl (6.4-8.2)
[2017-08-03] MEDS ORDERED: PT OWN MED DRAWER 7, Y5N ONE ×3 (08:57→13:05)
[2017-08-03] MEDS: CARBIDOPA/LEVODOPA 25/100 TABLET (FP) GT SCH ×2 (09:50→21:05)
[2017-08-03] MEDS: ZINC SULFATE 220 MG CAPSULE (FP) GT SCH ×2 (09:50→21:05)
[2017-08-03] MEDS: RANITIDINE HCL 150 MG/10 ML UNIT-DOSE GT SCH (09:50)
[2017-08-03] MEDS: AMINO ACIDS/PROTEIN HYDROLYS 30 ML LIQUID.PKT GT SCH ×2 (09:50→17:34)
[2017-08-03] MEDS: CALCIUM 500MG/VIT-D 200 UNITS COMBO TABLET (FP) GT SCH (09:50)
[2017-08-03] MEDS: LACTOBACILLUS ACIDOPHILUS 1 EACH TAB (FP) GT SCH (09:50)
[2017-08-03] MEDS: ASCORBIC ACID 500 MG/5 ML UNIT DOSE CUP GT SCH (09:52)
[2017-08-03] MEDS: SILVER SULFADIAZINE 1% TOP CREAM 50 GM JAR TP SCH (09:53)
[2017-08-03] MEDS: NYSTATIN POWDER 100,000 UNITS/GM - 15 GM TOPICAL POWDER TP SCH (09:53)
[2017-08-03] MEDS: COLLAGENASE CLOSTRIDIUM HIST. 30 GRAMS TUBE TP SCH (09:53)
[2017-08-03] MEDS ORDERED: POTASSIUM CHLORIDE ORAL LIQUID 20 MEQ/15 ML GT SCH (10:15)
--- NOTE | 2017-08-03 10:22 | PN ---
Progress Note, Physician Chief Complaint: Sepsis History of Present Illness: NAD Chronically ill on mechanical vent -seen by ID, GI and vascular Debridement sacrum and right heel done on 07/30/17 -On iV abx - Current Medication List Current Medications: Active Medications Acetaminophen (Tylenol -) 650 mg PO Q6H PRN PRN Reason: FEVER Acetaminophen (Tylenol -) 325 mg NR Q6H [facility] Last Admin: 08/03/17 09:51 Dose: 325 mg Albuterol/Ipratropium (Duoneb -) 1 amp NEB RQID [facility] Last Admin: 08/03/17 07:25 Dose: 1 amp Amino Acids (Prosource No Carb Liquid Pkt) 30 ml GT BID@0800,1730 [facility] Last Admin: 08/03/17 09:50 Dose: 30 ml Ascorbic Acid (Vitamin C Oral Solution -) 500 mg GT DAILY [facility] Last Admin: 08/03/17 09:52 Dose: 500 mg Calcium Carbonate/Cholecalciferol (Os-Frankie 500+D -) 1 tab GT DAILY [facility] Last Admin: 08/03/17 09:50 Dose: 1 tab Carbidopa/Levodopa (Sinemet 25/100 -) 1 each GT BID [facility] Last Admin: 08/03/17 09:50 Dose: 1 each Cholestyramine Resin (Questran Packet -) 4 gm GT TID [facility] Last Admin: 08/03/17 06:03 Dose: 4 gm Collagenase (Santyl -) 1 applic TP DAILY [facility] Last Admin: 08/03/17 09:53 Dose: 1 applic Donepezil HCl (Aricept -) 10 mg GT HS [facility] Last Admin: 08/02/17 22:28 Dose: 10 mg Furosemide (Lasix -) 40 mg GT BID@0600,1400 [facility] Last Admin: 08/03/17 06:03 Dose: 40 mg Vancomycin HCl 1,500 mg/ (Sodium Chloride) 500 mls @ 250 mls/hr IVPB DAILY@ 1900 [facility] PRN Reason: Protocol Last Admin: 08/02/17 18:38 Dose: 250 mls/hr Piperacillin Sod/Tazobactam (Sod 3.375 gm/ Dextrose) 100 mls @ 200 mls/hr IVPB Q8H-IV [facility] Last Admin: 08/03/17 09:50 Dose: 200 mls/hr Lactobacillus Acidophilus (Bacid -) 1 tab GT DAILY [facility] Last Admin: 08/03/17 09:50 Dose: 1 tab Loperamide HCl (Imodium Liquid -) 2 mg GT Q6H PRN PRN Reason: DIARRHEA Nystatin (Nystop Powder -) 1 applic TP DAILY [facility] Last Admin: 08/03/17 09:53 Dose: 1 applic Oxycodone HCl (Roxicodone -) 5 mg GT Q6H [facility] Last Admin: 08/03/17 09:50 Dose: 5 mg Potassium Chloride (Potassium Chloride Oral Liquid) 40 meq GT DAILY [facility] Ranitidine HCl (Zantac Oral Solution -) 150 mg GT DAILY [facility] Last Admin: 08/03/17 09:50 Dose: 150 mg Scopolamine HBr (Transderm-Scop -) 1 patch TD Q72H [facility] Last Admin: 07/31/17 23:16 Dose: 1 patch Silver Sulfadiazine (Silvadene -) 1 applic TP DAILY [facility] Last Admin: 08/03/17 09:53 Dose: 1 applic Warfarin Sodium (Coumadin -) 3.5 mg PO DAILY@1800 [facility] Last Admin: 08/02/17 17:34 Dose: 3.5 mg Zinc Sulfate (Orazinc -) 220 mg GT BID [facility] Last Admin: 08/03/17 09:50 Dose: 220 mg - Objective Vital Signs: Vital Signs Temperature 98.5 F 08/03/17 09:11 Pulse Rate 84 08/03/17 09:11 Respiratory Rate 17 08/03/17 09:11 Blood Pressure 100/60 08/03/17 09:11 O2 Sat by Pulse Oximetry (%) 96 08/03/17 08:19 Constitutional: Yes: Well Nourished, No Distress, Calm Cardiovascular: Yes: Regular Rate and Rhythm Respiratory: Yes: Mechanically Ventilated Gastrointestinal: Yes: Normal Bowel Sounds, Soft, Other (PEG placement) ...Rectal Exam: Yes: Other (rectal tube) Genitourinary: Yes: Olson Present Musculoskeletal: Yes: WNL Extremities: Yes: WNL Edema: No Neurological: Yes: Pre-Existing Deficit Labs: CBC, BMP 08/03/17 06:40 08/03/17 06:40 INR, PTT INR 2.27 (0.82-1.09) H 08/02/17 06:30 Problem List - Problems (1) Leukocytosis Assessment/Plan: -ID consult -iv abx -monitor trend -Tylenol for fever >100.0F -micro: Microbiology 07/28/17 09:06 Stool Gram Stain - Final 07/28/17 09:06 Stool Salmonella/Shigella Culture - Final NO GROWTH OF SALMONELLA OR SHIGELLA SPECIES OBTAINED 07/28/17 09:06 Stool Campylobacter Culture - Final NO GROWTH OF CAMPYLOBACTER SPECIES OBTAINED 07/28/17 09:06 Stool Yersinia Culture - Final NO GROWTH OF YERSINIA SPECIES OBTAINED 07/28/17 09:06 Stool Vibrio Culture - Final NO GROWTH OF VIBRIO SPECIES OBTAINED 07/28/17 09:06 Stool Escherichia coli 0157 Culture - Final NO GROWTH OF E COLI 0157 OBTAINED 07/25/17 11:18 Blood - Peripheral Venous Blood Culture - Final NO GROWTH AFTER 5 DAYS INCUBATION 07/25/17 11:18 Blood - Peripheral Venous Blood Culture - Final NO GROWTH AFTER 5 DAYS INCUBATION 07/26/17 06:31 Decubiti Gram Stain - Final 07/26/17 06:31 Decubiti Wound Culture - Final Pseudomonas Aeruginosa Acinetobacter Baumannii/Haemol Mr S Aureus Enterococcus Faecalis Vr Ec Faecalis Proteus Mirabilis 07/25/17 11:18 Urine - Urine - Catheterized Urine Culture - Final Pseudomonas Aeruginosa Vr Ec Faecalis 07/26/17 06:00 Stool Clostridium difficile (PCR) - Preliminary 07/27/17 03:20 Stool Clostridium difficile Antigen (FAVIAN) - Final 07/27/17 03:20 Stool Clostridium difficile Toxin Assay - Final Code(s): D72.829 - ELEVATED WHITE BLOOD CELL COUNT, UNSPECIFIED (2) Chronic atrial fibrillation Assessment/Plan: -on AC -rate controlled -repeat INR in AM Code(s): I48.2 - CHRONIC ATRIAL FIBRILLATION (3) Ventilator dependent Assessment/Plan: -pulmonary consult -bronchodilators Code(s): Z99.11 - DEPENDENCE ON RESPIRATOR [VENTILATOR] STATUS (4) Diarrhea Assessment/Plan: -chronic -GI consult -rectal tube -Cdiff negative -stool culture, O&P,elastase, negative -on Imodium and cholestyramine Code(s): R19.7 - DIARRHEA, UNSPECIFIED Qualifiers: Diarrhea type: unspecified type Qualified Code(s): R19.7 - Diarrhea, unspecified (5) Sacral decubitus ulcer Assessment/Plan: -Vascular consult -Wound culture: multiorganism -IV abx -debridement done Code(s): L89.159 - PRESSURE ULCER OF SACRAL REGION, UNSPECIFIED STAGE Qualifiers: Pressure ulcer stage: stage 3 Qualified Code(s): L89.153 - Pressure ulcer of sacral region, stage 3 (6) Pressure ulcer Assessment/Plan: BL heel, right heel PU debridement done Code(s): L89.90 - PRESSURE ULCER OF UNSPECIFIED SITE, UNSPECIFIED STAGE Assessment/Plan see problem list
--- NOTE | 2017-08-03 11:46 | PN ---
Progress Note (short form) - Note Progress Note: NAD on AC Mode of vent. No acute events overnight. Intake & Output 07/31/17 08/01/17 08/02/17 08/03/17 23:59 23:59 23:59 23:59 Intake Total 1535 1850 2140 1540 Output Total 1200 950 700 500 Balance 301 495 5417 1040 Last Vital Signs Temp Pulse Resp BP Pulse Ox 98.5 F 84 14 100/60 96 08/03/17 09:11 08/03/17 09:11 08/03/17 11:38 08/03/17 09:11 08/03/17 11:38 Active Medications Acetaminophen (Tylenol -) 650 mg PO Q6H PRN PRN Reason: FEVER Acetaminophen (Tylenol -) 325 mg NR Q6H [facility] Last Admin: 08/03/17 09:51 Dose: 325 mg Albuterol/Ipratropium (Duoneb -) 1 amp NEB RQID [facility] Last Admin: 08/03/17 11:39 Dose: 1 amp Amino Acids (Prosource No Carb Liquid Pkt) 30 ml GT BID@0800,1730 [facility] Last Admin: 08/03/17 09:50 Dose: 30 ml Ascorbic Acid (Vitamin C Oral Solution -) 500 mg GT DAILY [facility] Last Admin: 08/03/17 09:52 Dose: 500 mg Calcium Carbonate/Cholecalciferol (Os-Frankie 500+D -) 1 tab GT DAILY [facility] Last Admin: 08/03/17 09:50 Dose: 1 tab Carbidopa/Levodopa (Sinemet 25/100 -) 1 each GT BID [facility] Last Admin: 08/03/17 09:50 Dose: 1 each Cholestyramine Resin (Questran Packet -) 4 gm GT TID [facility] Last Admin: 08/03/17 06:03 Dose: 4 gm Collagenase (Santyl -) 1 applic TP DAILY [facility] Last Admin: 08/03/17 09:53 Dose: 1 applic Donepezil HCl (Aricept -) 10 mg GT HS [facility] Last Admin: 08/02/17 22:28 Dose: 10 mg Furosemide (Lasix -) 40 mg GT BID@0600,1400 [facility] Last Admin: 08/03/17 06:03 Dose: 40 mg Vancomycin HCl 1,500 mg/ (Sodium Chloride) 500 mls @ 250 mls/hr IVPB DAILY@ 1900 [facility] PRN Reason: Protocol Last Admin: 08/02/17 18:38 Dose: 250 mls/hr Piperacillin Sod/Tazobactam (Sod 3.375 gm/ Dextrose) 100 mls @ 200 mls/hr IVPB Q8H-IV [facility] Last Admin: 08/03/17 09:50 Dose: 200 mls/hr Lactobacillus Acidophilus (Bacid -) 1 tab GT DAILY [facility] Last Admin: 08/03/17 09:50 Dose: 1 tab Loperamide HCl (Imodium Liquid -) 2 mg GT Q6H PRN PRN Reason: DIARRHEA Nystatin (Nystop Powder -) 1 applic TP DAILY [facility] Last Admin: 08/03/17 09:53 Dose: 1 applic Oxycodone HCl (Roxicodone -) 5 mg GT Q6H [facility] Last Admin: 08/03/17 09:50 Dose: 5 mg Potassium Chloride (Potassium Chloride Oral Liquid) 40 meq GT DAILY [facility] Ranitidine HCl (Zantac Oral Solution -) 150 mg GT DAILY [facility] Last Admin: 08/03/17 09:50 Dose: 150 mg Scopolamine HBr (Transderm-Scop -) 1 patch TD Q72H [facility] Last Admin: 07/31/17 23:16 Dose: 1 patch Silver Sulfadiazine (Silvadene -) 1 applic TP DAILY [facility] Last Admin: 08/03/17 09:53 Dose: 1 applic Warfarin Sodium (Coumadin -) 3.5 mg PO DAILY@1800 [facility] Last Admin: 08/02/17 17:34 Dose: 3.5 mg Zinc Sulfate (Orazinc -) 220 mg GT BID [facility] Last Admin: 08/03/17 09:50 Dose: 220 mg Constitutional: Yes: Poorly responsive, Vented Eyes: Yes: Conjunctiva Clear HENT: Yes: Atraumatic, Normocephalic Neck: Yes: Trachea Midline, Other (Trached) Cardiovascular: Yes: Pulse Irregular Respiratory: Yes: Mechanically Ventilated, Rhonchi. No: Accessory Muscle Use, Stridor, Tachypnea, Wheezes ...Inspection: Yes: WNL ...Clubbing: No Gastrointestinal: Yes: Normal Bowel Sounds, Distention. No: Pulsatile Mass, Tenderness, Rebound Musculoskeletal: Yes: WNL Extremities: Yes: WNL Edema: No Peripheral Pulses WNL: Yes Neurological: Yes: Lethargy, Pre-Existing Deficit Labs: Laboratory Results - last 24 hr 08/03/17 08/03/17 06:40 06:40 WBC 14.5 H RBC 3.81 L Hgb 9.8 L Hct 32.5 L MCV 85.2 MCH 25.7 MCHC 30.1 L RDW 16.9 H Plt Count 396 MPV 8.6 Neutrophils % 62.7 Lymphocytes % 17.6 Monocytes % 11.2 H Eosinophils % 7.8 H Basophils % 0.7 Sodium 143 Potassium 4.4 Chloride 110 H Carbon Dioxide 27 Anion Gap 6 L BUN 23 H Creatinine 0.6 L Creat Clearance w eGFR > 60 Random Glucose 116 H Calcium 7.4 L Total Bilirubin 0.2 D AST 17 ALT 11 L D Alkaline Phosphatase 89 Total Protein 6.5 Albumin 1.7 L Problem List - Problems (1) Diarrhea Code(s): R19.7 - DIARRHEA, UNSPECIFIED Qualifiers: Diarrhea type: unspecified type Qualified Code(s): R19.7 - Diarrhea, unspecified (2) Sacral decubitus ulcer Code(s): L89.159 - PRESSURE ULCER OF SACRAL REGION, UNSPECIFIED STAGE Qualifiers: Pressure ulcer stage: stage 3 Qualified Code(s): L89.153 - Pressure ulcer of sacral region, stage 3 (3) A-fib Code(s): I48.91 - UNSPECIFIED ATRIAL FIBRILLATION Qualifiers: Atrial fibrillation type: chronic Qualified Code(s): I48.2 - Chronic atrial fibrillation (4) CHF (congestive heart failure) Code(s): I50.9 - HEART FAILURE, UNSPECIFIED (5) Chronic atrial fibrillation Code(s): I48.2 - CHRONIC ATRIAL FIBRILLATION (6) Chronic respiratory failure Code(s): J96.10 - CHRONIC RESPIRATORY FAILURE, UNSP W HYPOXIA OR HYPERCAPNIA Qualifiers: Respiratory failure complication: hypoxia Qualified Code(s): J96.11 - Chronic respiratory failure with hypoxia (7) Dementia Code(s): F03.90 - UNSPECIFIED DEMENTIA WITHOUT BEHAVIORAL DISTURBANCE Qualifiers: Dementia type: Parkinson's disease Dementia behavioral disturbance: with behavioral disturbance Qualified Code(s): G20 - Parkinson's disease (8) Hyperlipemia Code(s): E78.5 - HYPERLIPIDEMIA, UNSPECIFIED (9) Parkinson disease Code(s): G20 - PARKINSON'S DISEASE (10) Pressure ulcer Code(s): L89.90 - PRESSURE ULCER OF UNSPECIFIED SITE, UNSPECIFIED STAGE Qualifiers: Pressure ulcer stage: stage II Qualified Code(s): L89.92 - Pressure ulcer of unspecified site, stage 2 (11) Venous insufficiency Code(s): I87.2 - VENOUS INSUFFICIENCY (CHRONIC) (PERIPHERAL) (12) Ventilator dependent Code(s): Z99.11 - DEPENDENCE ON RESPIRATOR [VENTILATOR] STATUS Assessment/Plan Maintain current vent settings Not a candidate for wean at this time BD TX PRN ABX per ID Local wound care Dr Fernandes Problem List - Problems (1) Diarrhea Code(s): R19.7 - DIARRHEA, UNSPECIFIED Qualifiers: Diarrhea type: unspecified type Qualified Code(s): R19.7 - Diarrhea, unspecified (2) Sacral decubitus ulcer Code(s): L89.159 - PRESSURE ULCER OF SACRAL REGION, UNSPECIFIED STAGE Qualifiers: Pressure ulcer stage: stage 3 Qualified Code(s): L89.153 - Pressure ulcer of sacral region, stage 3 (3) A-fib Code(s): I48.91 - UNSPECIFIED ATRIAL FIBRILLATION Qualifiers: Atrial fibrillation type: chronic Qualified Code(s): I48.2 - Chronic atrial fibrillation (4) CHF (congestive heart failure) Code(s): I50.9 - HEART FAILURE, UNSPECIFIED (5) Chronic atrial fibrillation Code(s): I48.2 - CHRONIC ATRIAL FIBRILLATION (6) Chronic respiratory failure Code(s): J96.10 - CHRONIC RESPIRATORY FAILURE, UNSP W HYPOXIA OR HYPERCAPNIA Qualifiers: Respiratory failure complication: hypoxia Qualified Code(s): J96.11 - Chronic respiratory failure with hypoxia (7) Dementia Code(s): F03.90 - UNSPECIFIED DEMENTIA WITHOUT BEHAVIORAL DISTURBANCE Qualifiers: Dementia type: Parkinson's disease Dementia behavioral disturbance: with behavioral disturbance Qualified Code(s): G20 - Parkinson's disease (8) Hyperlipemia Code(s): E78.5 - HYPERLIPIDEMIA, UNSPECIFIED (9) Parkinson disease Code(s): G20 - PARKINSON'S DISEASE (10) Pressure ulcer Code(s): L89.90 - PRESSURE ULCER OF UNSPECIFIED SITE, UNSPECIFIED STAGE Qualifiers: Pressure ulcer stage: stage II Qualified Code(s): L89.92 - Pressure ulcer of unspecified site, stage 2 (11) Venous insufficiency Code(s): I87.2 - VENOUS INSUFFICIENCY (CHRONIC) (PERIPHERAL) (12) Ventilator dependent Code(s): Z99.11 - DEPENDENCE ON RESPIRATOR [VENTILATOR] STATUS
--- NOTE | 2017-08-03 12:27 | PN ---
Progress Note (short form) - Note Progress Note: unresponsive trach to vent NAD s/p debridement 07/30, sacrum and heel Vital Signs Period Temp Pulse Resp BP Sys/Limon Pulse Ox Last 24 Hr 98.5 F-99.1 F 61-91 12-18 100-121/56-71 96-96 cor-rrr trch to vent lungs decreased bs at bases abd soft, +GT +rectal tube ext +LE edema ulcers- sacral ulcer clean- being packed, no necrotic tissue, no prurlence, no surrounding erythema heels- shallow ulcers- no erythema or purulent drainage CBC, BMP 08/03/17 06:40 08/03/17 06:40 a/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 wound look clean, will d/c antibiotics do not suspect pneumonia or UTI at this time suspect urine culture is from chronic bauman- would not treat at this time cdiff is negative strict contact isolation Problem List - Problems (1) Leukocytosis Code(s): D72.829 - ELEVATED WHITE BLOOD CELL COUNT, UNSPECIFIED (2) Diarrhea Code(s): R19.7 - DIARRHEA, UNSPECIFIED Qualifiers: Diarrhea type: unspecified type Qualified Code(s): R19.7 - Diarrhea, unspecified (3) Sacral decubitus ulcer Code(s): L89.159 - PRESSURE ULCER OF SACRAL REGION, UNSPECIFIED STAGE Qualifiers: Pressure ulcer stage: stage 3 Qualified Code(s): L89.153 - Pressure ulcer of sacral region, stage 3 (4) Chronic respiratory failure Code(s): J96.10 - CHRONIC RESPIRATORY FAILURE, UNSP W HYPOXIA OR HYPERCAPNIA Qualifiers: Respiratory failure complication: hypoxia Qualified Code(s): J96.11 - Chronic respiratory failure with hypoxia (5) Dementia Code(s): F03.90 - UNSPECIFIED DEMENTIA WITHOUT BEHAVIORAL DISTURBANCE Qualifiers: Dementia type: Parkinson's disease Dementia behavioral disturbance: with behavioral disturbance Qualified Code(s): G20 - Parkinson's disease
[2017-08-03] MEDS: POTASSIUM CHLORIDE ORAL LIQUID 20 MEQ/15 ML GT SCH (13:07)
[2017-08-03] MEDS: WARFARIN NA 1 MG TABLET (FP) PO SCH (17:35)
[2017-08-03] MEDS: DONEPEZIL HCL 10 MG TABLET (FP) GT SCH (21:06)
[2017-08-04] MEDS: SCOPOLAMINE HYDROBROMIDE 1 PATCH PATCH.TD72 TD SCH (00:34)
[2017-08-04] MEDS: ACETAMINOPHEN 325 MG TABLET (FP) NR SCH ×3 (04:50→15:53)
[2017-08-04] MEDS: oxyCODONE HCL 5 MG TABLET GT SCH ×3 (04:50→15:53)
[2017-08-04] MEDS: FUROSEMIDE 40 MG TABLET (FP) GT SCH ×2 (05:28→14:52)
[2017-08-04] MEDS: CHOLESTYRAMINE/ASPARTAME 4 GM PACKET GT SCH ×2 (05:39→15:55)
[2017-08-04 07:56] LABS: INR 2.44 (0.82-1.09); PROTHROMBIN TIME (PATIENT) 27.6 SEC (9.98-11.88)
[2017-08-04] MEDS: ALBUTEROL SO4 2.5/IPRATROPIUM 0.5 INH SOL 3 ML VIAL.NEB. NEB SCH ×3 (08:00→16:14)
[2017-08-04 08:06] LABS: BASO % 0.4 % (0-2.0); EOS % 6.8 % (0-4.5); HEMATOCRIT 31.2 % (35.4-49); HEMOGLOBIN 9.5 GM/dL (11.7-16.9); LYMPH % 17.4 % (8-40); MCH 25.8 pg (25.7-33.7); MCHC 30.5 g/dl (32.0-35.9); MEAN CELL VOLUME 84.7 fl (80-96); MEAN PLT VOLUME 8.8 fl (7.5-11.1); MONO % 9.3 % (3.8-10.2); NEUT % 66.1 % (42.8-82.8); PLATELET COUNT 397 K/MM3 (134-434); RBC 3.68 M/mm3 (4.00-5.60); RDW 17.1 % (11.9-15.9); WHITE BLOOD COUNT 15.8 K/mm3 (4.0-10.0)
[2017-08-04 08:16] LABS: ALBUMIN 1.7 g/dl (3.4-5.0); BILIRUBIN,TOTAL 0.3 mg/dL (0.2-1.0); CHLORIDE 111 mmol/L (98-107); POTASSIUM 4.7 mmol/L (3.5-5.1); SODIUM 146 mmol/L (136-145)
[2017-08-04 08:19] LABS: ALK PHOS 88 U/L (45-117); ANION GAP 5 (8-16); BLOOD UREA NITROGEN 25 mg/dL (7-18); CALCIUM 7.6 mg/dL (8.5-10.1); CO2 30 mmol/L (21-32); CREATININE 0.7 mg/dL (0.7-1.3); GLUCOSE,RANDOM 107 mg/dL (74-106); SGOT/AST 19 U/L (15-37); SGPT/ALT 15 U/L (12-78); TOT PROT 6.4 g/dl (6.4-8.2)
[2017-08-04] MEDS ORDERED: PT OWN MED DRAWER 7, Y5N ONE (09:19)
[2017-08-04] MEDS: AMINO ACIDS/PROTEIN HYDROLYS 30 ML LIQUID.PKT GT SCH (09:26)
[2017-08-04] MEDS: CALCIUM 500MG/VIT-D 200 UNITS COMBO TABLET (FP) GT SCH (10:25)
[2017-08-04] MEDS: CARBIDOPA/LEVODOPA 25/100 TABLET (FP) GT SCH (10:25)
[2017-08-04] MEDS: LACTOBACILLUS ACIDOPHILUS 1 EACH TAB (FP) GT SCH (10:25)
[2017-08-04] MEDS: RANITIDINE HCL 150 MG/10 ML UNIT-DOSE GT SCH (10:26)
[2017-08-04] MEDS: ZINC SULFATE 220 MG CAPSULE (FP) GT SCH (10:26)
[2017-08-04] MEDS: ASCORBIC ACID 500 MG/5 ML UNIT DOSE CUP GT SCH (10:29)
--- NOTE | 2017-08-04 11:34 | DS ---
Physical Examination Vital Signs: Vital Signs Temperature 98.2 F 08/04/17 06:00 Pulse Rate 95 H 08/04/17 06:00 Respiratory Rate 15 08/04/17 10:33 Blood Pressure 115/67 08/04/17 06:00 O2 Sat by Pulse Oximetry (%) 100 08/03/17 21:00 Constitutional: Yes: Calm HENT: Yes: Other (trach) Cardiovascular: Yes: Regular Rate and Rhythm, S1, S2 Respiratory: Yes: Mechanically Ventilated Gastrointestinal: Yes: Normal Bowel Sounds, Soft, Other (peg) Edema: Yes Wound/Incision: Yes: Other Labs: CBC, BMP 08/04/17 06:30 08/04/17 06:30 Discharge Summary Reason For Visit: SEPSIS,DECUBITUS ULCER OF SACRAL REGION,[place] Current Active Problems Chronic diarrhea (Acute) Diarrhea (Acute) Hypoalbuminemia (Acute) Leukocytosis (Acute) PEG (percutaneous endoscopic gastrostomy) adjustment/replacement/removal (Acute) Pressure ulcer (Acute) Sacral decubitus ulcer (Acute) Sepsis (Acute) Hospital Course: PCP: Jerzy Callaway - Admission Chief Complaint: diarrhea, sepsis History of Present Illness: Patient is a 82 year old male, from [facility], with a significant past medical history of hyperlipidemia, atrial fibrillation, COPD, chronic respiratory failure s/p tracheostomy, coronary artery disease, CVA and dementia, who was brought by EMS to the ED due to Peg tube obstruction/possible illeus. Per family, the pt has chronic diarrhea, and has had CDIFF in the past, and was started abx which tendes to worsenin his diarrhea. Over the past month, he develpe da sacral decubitus ulcer, and due to his chornic dirrhea had a rectal tube placed. He also had a recent PEG that dislodged, when laura replaced it and got a abd xray, it showed obstruction/illeus. No known history of vomiting, abd not distended. History provided from family, EMS and DC records as pt unable to give us any history. 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, Parkinson's Cardiovascular: Yes: AFIB, CAD, Hyperlipdemia Pulmonary: Yes: COPD Gastrointestinal: Yes: GI Bleed Renal/: Yes: BPH Heme/Onc: Yes: Other (DVT s/p Filter) Infectious Disease: Yes: Other (, aspiration pneumonia in the past) Musculoskeletal: Yes: Hemiplegia - Past Surgical History Past Surgical History: Yes: Hernia Repair (right inguinal hernia repair), Joint Replacement (pins in left hip) - Smoking History Smoking history: Unknown if ever smoked Have you smoked in the past 12 months: No Aproximately how many cigarettes per day: 0 If you are a former smoker, when did you quit?: 40 years ago - Alcohol/Substance Use Hx Alcohol Use: No in hospital : seen by Gi got peg tube replacement and gastrograffin study ordered and ok to use sacral decubitis ulcer s/p debridment on 07/30 now warfarin restarted for afib and inr is therapeutic seen by ID no need to treat urine culture needs strict isolation chronic resp failure s/p trach not a candidate for weaning will remove picc line and send back to [facility] Condition: Guarded - Instructions Referrals: Jerzy Callaway MD [Primary Care Provider] - [facility] - Home Medications Comprehensive Discharge Medication List: Ambulatory Orders Albuterol 2.5/Ipratropium 0.5 [Duoneb -] 1 neb IH Q6H 03/20/16 Ascorbic Acid [Vitamin C -] 500 mg GT DAILY 03/20/16 Carbidopa/Levodopa [Carbidopa-Levodopa 25-100 Tab] 1 each GT BID 03/20/16 Aa/[place]/Arg/C/Zn/Cu [Lps Critical Care Liquid] 30 ml GT DAILY Donepezil HCl [Aricept -] 10 mg GT DAILY 07/09/16 Collagenase Clostridium Hist. [Santyl -] 1 applic TP DAILY tube 07/14/16 Bacitracin - [Bacitracin Topical Ointment -] 1 applic TP DAILY tube 09/05/16 Lactobacillus Acidophilus [Bacid -] 1 tab GT DAILY tab 09/05/16 Scopolamine Hydrobromide [Transderm-Scop -] 1 patch TD Q72H patch.[id number] Acetaminophen [Tylenol .Regular Strength -] 650 mg GT ASDIR PRN 07/25/17 Albuterol 2.5/Ipratropium 0.5 [Duoneb -] 1 neb NEB Q4H 07/25/17 Calcium Carbonate/Vitamin D3 [Oyster Shell 500-Vit D3 200 Tb] 1 each GT DAILY Furosemide [Lasix -] 40 mg GT BID@0600,1400 07/25/17 Loperamide HCl [Loperamide] 2 mg GT Q6H 07/25/17 Oxycodone HCl [Roxicodone -] 5 mg GT Q6H 07/25/17 Potassium Chloride Oral Soln [KCl Oral Solution -] 40 meq GT DAILY 07/25/17 Ranitidine Oral Solution [Zantac Oral Solution -] 150 mg GT DAILY 07/25/17 Silver Sulfadiazine 1% Top Cr [Silvadene -] 1 applic TP DAILY 07/25/17 Warfarin Na [Coumadin -] 3.5 mg GT DAILY@1800 07/25/17 Zinc Sulfate [Orazinc] 220 mg GT BID 07/25/17
--- NOTE | 2017-08-04 13:59 | PN ---
Progress Note (short form) - Note Progress Note: NAD on AC Mode of vent. No acute events overnight. Intake & Output 08/01/17 08/02/17 08/03/17 08/04/17 23:59 23:59 23:59 23:59 Intake Total 1850 2140 2840 1140 Output Total 559 233 9500 350 Balance 900 1440 1590 790 Last Vital Signs Temp Pulse Resp BP Pulse Ox 98 F 96 H 15 114/70 100 08/04/17 10:00 08/04/17 10:00 08/04/17 10:33 08/04/17 10:00 08/04/17 09:00 Active Medications Acetaminophen (Tylenol -) 650 mg PO Q6H PRN PRN Reason: FEVER Acetaminophen (Tylenol -) 325 mg NR Q6H [facility] Last Admin: 08/04/17 10:26 Dose: 325 mg Albuterol/Ipratropium (Duoneb -) 1 amp NEB RQID [facility] Last Admin: 08/04/17 08:00 Dose: 1 amp Amino Acids (Prosource No Carb Liquid Pkt) 30 ml GT BID@0800,1730 [facility] Last Admin: 08/04/17 09:26 Dose: 30 ml Ascorbic Acid (Vitamin C Oral Solution -) 500 mg GT DAILY [facility] Last Admin: 08/04/17 10:29 Dose: 500 mg Calcium Carbonate/Cholecalciferol (Os-Frankie 500+D -) 1 tab GT DAILY [facility] Last Admin: 08/04/17 10:25 Dose: 1 tab Carbidopa/Levodopa (Sinemet 25/100 -) 1 each GT BID [facility] Last Admin: 08/04/17 10:25 Dose: 1 each Cholestyramine Resin (Questran Light Packet -) 4 gm GT TID [facility] Last Admin: 08/04/17 05:39 Dose: 4 gm Collagenase (Santyl -) 1 applic TP DAILY [facility] Last Admin: 08/03/17 09:53 Dose: 1 applic Donepezil HCl (Aricept -) 10 mg GT HS [facility] Last Admin: 08/03/17 21:06 Dose: 10 mg Furosemide (Lasix -) 40 mg GT BID@0600,1400 [facility] Last Admin: 08/04/17 05:28 Dose: 40 mg Lactobacillus Acidophilus (Bacid -) 1 tab GT DAILY [facility] Last Admin: 08/04/17 10:25 Dose: 1 tab Loperamide HCl (Imodium Liquid -) 2 mg GT Q6H PRN PRN Reason: DIARRHEA Last Admin: 08/04/17 10:27 Dose: 2 mg Nystatin (Nystop Powder -) 1 applic TP DAILY [facility] Last Admin: 08/03/17 09:53 Dose: 1 applic Oxycodone HCl (Roxicodone -) 5 mg GT Q6H [facility] Last Admin: 08/04/17 10:26 Dose: 5 mg Potassium Chloride (Potassium Chloride Oral Liquid) 40 meq GT DAILY [facility] Last Admin: 08/04/17 10:26 Dose: 40 meq Ranitidine HCl (Zantac Oral Solution -) 150 mg GT DAILY [facility] Last Admin: 08/04/17 10:26 Dose: 150 mg Scopolamine HBr (Transderm-Scop -) 1 patch TD Q72H [facility] Last Admin: 08/04/17 00:34 Dose: 1 patch Silver Sulfadiazine (Silvadene -) 1 applic TP DAILY [facility] Last Admin: 08/03/17 09:53 Dose: 1 applic Warfarin Sodium (Coumadin -) 3.5 mg PO DAILY@1800 [facility] Last Admin: 08/03/17 17:35 Dose: 3.5 mg Zinc Sulfate (Orazinc -) 220 mg GT BID [facility] Last Admin: 08/04/17 10:26 Dose: 220 mg Constitutional: Yes: Poorly responsive, Vented Eyes: Yes: Conjunctiva Clear HENT: Yes: Atraumatic, Normocephalic Neck: Yes: Trachea Midline, Other (Trached) Cardiovascular: Yes: Pulse Irregular Respiratory: Yes: Mechanically Ventilated, Rhonchi. No: Accessory Muscle Use, Stridor, Tachypnea, Wheezes ...Inspection: Yes: WNL ...Clubbing: No Gastrointestinal: Yes: Normal Bowel Sounds, Distention. No: Pulsatile Mass, Tenderness, Rebound Musculoskeletal: Yes: WNL Extremities: Yes: WNL Edema: No Peripheral Pulses WNL: Yes Neurological: Yes: Lethargy, Pre-Existing Deficit Labs: Laboratory Results - last 24 hr 07/29/17 07/29/17 08/04/17 07:00 09:06 06:30 WBC 15.8 H RBC 3.68 L Hgb 9.5 L Hct 31.2 L MCV 84.7 MCH 25.8 MCHC 30.5 L RDW 17.1 H Plt Count 397 MPV 8.8 Neutrophils % 66.1 Lymphocytes % 17.4 Monocytes % 9.3 Eosinophils % 6.8 H Basophils % 0.4 PT with INR INR Sodium Potassium Chloride Carbon Dioxide Anion Gap BUN Creatinine Creat Clearance w eGFR Random Glucose Calcium Total Bilirubin AST ALT Alkaline Phosphatase Total Protein Albumin Ur Random 5-HIAA 1.7 Urine 5-HIAA 24 Hour 1.7 Stool Pancreat Elastase > 500 08/04/17 08/04/17 06:30 06:30 WBC RBC Hgb Hct MCV MCH MCHC RDW Plt Count MPV Neutrophils % Lymphocytes % Monocytes % Eosinophils % Basophils % PT with INR 27.60 H INR 2.44 H Sodium 146 H Potassium 4.7 Chloride 111 H Carbon Dioxide 30 Anion Gap 5 L BUN 25 H Creatinine 0.7 Creat Clearance w eGFR > 60 Random Glucose 107 H Calcium 7.6 L Total Bilirubin 0.3 D AST 19 ALT 15 D Alkaline Phosphatase 88 Total Protein 6.4 Albumin 1.7 L Ur Random 5-HIAA Urine 5-HIAA 24 Hour Stool Pancreat Elastase Problem List - Problems (1) Diarrhea Code(s): R19.7 - DIARRHEA, UNSPECIFIED Qualifiers: Diarrhea type: unspecified type Qualified Code(s): R19.7 - Diarrhea, unspecified (2) Sacral decubitus ulcer Code(s): L89.159 - PRESSURE ULCER OF SACRAL REGION, UNSPECIFIED STAGE Qualifiers: Pressure ulcer stage: stage 3 Qualified Code(s): L89.153 - Pressure ulcer of sacral region, stage 3 (3) A-fib Code(s): I48.91 - UNSPECIFIED ATRIAL FIBRILLATION Qualifiers: Atrial fibrillation type: chronic Qualified Code(s): I48.2 - Chronic atrial fibrillation (4) CHF (congestive heart failure) Code(s): I50.9 - HEART FAILURE, UNSPECIFIED (5) Chronic atrial fibrillation Code(s): I48.2 - CHRONIC ATRIAL FIBRILLATION (6) Chronic respiratory failure Code(s): J96.10 - CHRONIC RESPIRATORY FAILURE, UNSP W HYPOXIA OR HYPERCAPNIA Qualifiers: Respiratory failure complication: hypoxia Qualified Code(s): J96.11 - Chronic respiratory failure with hypoxia (7) Dementia Code(s): F03.90 - UNSPECIFIED DEMENTIA WITHOUT BEHAVIORAL DISTURBANCE Qualifiers: Dementia type: Parkinson's disease Dementia behavioral disturbance: with behavioral disturbance Qualified Code(s): G20 - Parkinson's disease (8) Hyperlipemia Code(s): E78.5 - HYPERLIPIDEMIA, UNSPECIFIED (9) Parkinson disease Code(s): G20 - PARKINSON'S DISEASE (10) Pressure ulcer Code(s): L89.90 - PRESSURE ULCER OF UNSPECIFIED SITE, UNSPECIFIED STAGE Qualifiers: Pressure ulcer stage: stage II Qualified Code(s): L89.92 - Pressure ulcer of unspecified site, stage 2 (11) Venous insufficiency Code(s): I87.2 - VENOUS INSUFFICIENCY (CHRONIC) (PERIPHERAL) (12) Ventilator dependent Code(s): Z99.11 - DEPENDENCE ON RESPIRATOR [VENTILATOR] STATUS Assessment/Plan Maintain current vent settings BD TX PRN D/C to SNF Dr Fernandes Problem List - Problems (1) Diarrhea Code(s): R19.7 - DIARRHEA, UNSPECIFIED Qualifiers: Diarrhea type: unspecified type Qualified Code(s): R19.7 - Diarrhea, unspecified (2) Sacral decubitus ulcer Code(s): L89.159 - PRESSURE ULCER OF SACRAL REGION, UNSPECIFIED STAGE Qualifiers: Pressure ulcer stage: stage 3 Qualified Code(s): L89.153 - Pressure ulcer of sacral region, stage 3 (3) A-fib Code(s): I48.91 - UNSPECIFIED ATRIAL FIBRILLATION Qualifiers: Atrial fibrillation type: chronic Qualified Code(s): I48.2 - Chronic atrial fibrillation (4) CHF (congestive heart failure) Code(s): I50.9 - HEART FAILURE, UNSPECIFIED (5) Chronic atrial fibrillation Code(s): I48.2 - CHRONIC ATRIAL FIBRILLATION (6) Chronic respiratory failure Code(s): J96.10 - CHRONIC RESPIRATORY FAILURE, UNSP W HYPOXIA OR HYPERCAPNIA Qualifiers: Respiratory failure complication: hypoxia Qualified Code(s): J96.11 - Chronic respiratory failure with hypoxia (7) Dementia Code(s): F03.90 - UNSPECIFIED DEMENTIA WITHOUT BEHAVIORAL DISTURBANCE Qualifiers: Dementia type: Parkinson's disease Dementia behavioral disturbance: with behavioral disturbance Qualified Code(s): G20 - Parkinson's disease (8) Hyperlipemia Code(s): E78.5 - HYPERLIPIDEMIA, UNSPECIFIED (9) Parkinson disease Code(s): G20 - PARKINSON'S DISEASE (10) Pressure ulcer Code(s): L89.90 - PRESSURE ULCER OF UNSPECIFIED SITE, UNSPECIFIED STAGE Qualifiers: Pressure ulcer stage: stage II Qualified Code(s): L89.92 - Pressure ulcer of unspecified site, stage 2 (11) Venous insufficiency Code(s): I87.2 - VENOUS INSUFFICIENCY (CHRONIC) (PERIPHERAL) (12) Ventilator dependent Code(s): Z99.11 - DEPENDENCE ON RESPIRATOR [VENTILATOR] STATUS
[2017-08-04] MEDS: COLLAGENASE CLOSTRIDIUM HIST. 30 GRAMS TUBE TP SCH (14:25)
[2017-08-04] MEDS: SILVER SULFADIAZINE 1% TOP CREAM 50 GM JAR TP SCH (14:25)
[2017-08-04] MEDS: NYSTATIN POWDER 100,000 UNITS/GM - 15 GM TOPICAL POWDER TP SCH (14:25)
[2017-08-04 20:09] VITALS: BP 100/62; PULSE 83; TEMP 98.9
[2017-08-05 13:03] LABS: VASOACTIVE INTEST, POLYPEPTIDE < 16.8 pg/mL (0.0-58.8)
--- NOTE | 2017-08-06 07:28 | OP ---
DATE OF OPERATION: 07/30/2017 PREOPERATIVE DIAGNOSES: 1. Necrotic sacral ulcer. 2. Necrotic right heel ulcer. POSTOPERATIVE DIAGNOSES: 1. Necrotic sacral ulcer. 2. Necrotic right heel ulcer. PROCEDURE PERFORMED: 1. Excisional debridement of sacral skin, subcutaneous tissue and muscle. 2. Excisional debridement of right heel skin and subcutaneous tissue. SURGEON: Gutierrez Vera DO ANESTHESIA: General. BLOOD LOSS: 25 mL. FINDINGS: Necrotic sacrum. INDICATIONS: The patient is an 82-year-old male who is intubated, who has a necrotic sacral ulcer and right heel ulcer. It was thought that he would need debridement due to how necrotic and foul-smelling the sacrum was. The patient's consented for the procedure, understanding all risks, benefits and alternatives. DESCRIPTION OF PROCEDURE: The patient was brought to the operating room. Once he was brought into the operating room, he was laid on the operating table in the supine manner. Then he was turned left side down. We went ahead and exposed the sacrum. We prepped and draped the sacrum in a sterile surgical manner. We then went ahead and took a number 15 blade and we excised all the necrotic tissue, including the skin, subcutaneous tissue and muscle. Bovie electrocautery was used to control hemostasis. We were able to take away all of the necrotic tissue and irrigate the wound copiously. Once the wound was irrigated copiously, we went ahead and placed wet 4 x 4's, dry 4 x 4's, ABD pads and tape, and turned the patient on his back. We then went ahead and prepped and draped the right heel in a sterile surgical manner, and we were able to excise the necrotic eschar that was present, taking it down using a 15 blade, including the skin and subcutaneous tissue. Bovie electrocautery was used to control hemostasis. We then placed a wet-to-dry dressing, a 4 x 4 and Kerlix. The patient tolerated the procedure with no complication. The patient was transferred to PACU in stable condition. Total blood loss was 25 mL. GUTIERREZ VERA DO RECORDING STUDIO SET UP WORKER/[id number]
--- NOTE | 2017-08-07 17:01 | PATH ---
Surgical Pathology Report Patient Name: MELITA STOKES [facility]. Rec. #: [id number] /Age/Gender: 1935 (Age: 82) / M Account: [id number] Location: [address] [place] [address] Taken: 07/30/2017 Received: 07/31/2017 Reported: 08/07/2017 Physicians: Ronal Jenkins M.D. Specimen(s) Received DEBRIDEMENT TISSUE SCARAL ULCER Clinical History Decubitus ulcer of sacral region Final Diagnosis SACRUM, DEBRIDED TISSUE, DEBRIDEMENT: FIBROADIPOSE TISSUE WITH SEVERE ACUTE AND CHRONIC NECROTIZING INFLAMMATION. Electronically Signed Hortencia Montes M.D. Gross Description Received in formalin labeled "debrided tissue sacrum," is a 5.3 x 5.0 x 1.2 cm aggregate of oro merida, necrotic soft tissue fragments. A payable representative portion is submitted in one cassette. /08/01/201708/01/2017
== END 2017-08-04 16:44 | DRG 570 ==
LOC: JER 10:02 → JERBED 13:43 → J5S 07-27 21:31
PROVIDERS: ADMIT Family Medicine; ATTEND Family Medicine
PROC: 5A1955Z Respiratory Ventilation, Greater than 96 Consecutive Hours (ICD-10-PCS; 2017-07-25)
PROC: 0JBQ0ZZ Excision of Right Foot Subcutaneous Tissue and Fascia, Open Approach (ICD-10-PCS; 2017-07-30)
PROC: 0KBN0ZZ Excision of Right Hip Muscle, Open Approach (ICD-10-PCS; 2017-07-30)
PROC: 0KBP0ZZ Excision of Left Hip Muscle, Open Approach (ICD-10-PCS; principal; 2017-07-30 11:30)
DX: L89.153 Pressure ulcer of sacral region, stage 3 (principal); I50.33 Acute on chronic diastolic (congestive) heart failure; Z99.11 Dependence on respirator [ventilator] status; J96.11 Chronic respiratory failure with hypoxia; N39.0 Urinary tract infection, site not specified; G81.90 Hemiplegia, unspecified affecting unspecified side; L89.619 Pressure ulcer of right heel, unspecified stage; Z93.1 Gastrostomy status; I48.91 Unspecified atrial fibrillation; Z93.0 Tracheostomy status; I25.10 Atherosclerotic heart disease of native coronary artery without angina pectoris; E78.5 Hyperlipidemia, unspecified; Z87.891 Personal history of nicotine dependence; G20 Parkinson's disease; F02.80 Dementia in other diseases classified elsewhere, unspecified severity, without behavioral disturbance, psychotic disturbance, mood disturbance, and anxiety; E88.09 Other disorders of plasma-protein metabolism, not elsewhere classified
CPT/HCPCS: 36415; 36600; 71045-TC; 74018-TC; 74176-TC; 74247-TC; 80053; 81003; 81015; 82550; 82656; 82803; 83497; 83519; 83605; 84155; 84165; 84484; 84586; 85025; 85027; 85610; 85730; 86140; 86850; 86900; 86901; 87040; 87045; 87046; 87070; 87086; 87177; 87186; 87205; 87209; 87324; 87449; 87493; 88304-TC; 93005; 93010; 93923; 93971; 94002; 94640; 94760; 99285-25

== ENCOUNTER 2018-04-24 19:16 | Inpatient (IN) | payer OTHER, BC ==
--- NOTE | 2018-04-24 19:30 | PDOC ---
Attending Attestation - HPI HPI: 04/24/18 20:11 The patient is a 82 year old male, with a significant PMH of Afib, chronic respiratory failure s/p tracheostomy, CVA, CAD, dementia, HLD who presents to the emergency department sent in by Vicente MA for worsening skin decubitus ulcer to the elbow. Patient is unable to provide any further history. Patient has a fever of 101.4 here in the ER. Allergies: NKA Past surgical history: None reported. Social history: None reported. - Physicial Exam PE: 04/24/18 22:49 ADULT EXAM GENERAL: Awake, alert, in no acute distress (+) Febrile. (+) Anasacra. HEAD: No signs of trauma EYES: PERRLA, EOMI, sclera anicteric, conjunctiva clear ENT: Auricles normal inspection, hearing grossly normal, nares patent, oropharynx clear without exudates. (+) Mouth is dry. (+) Poor dental hygiene. (+ ) Trach collar and trach tube in place. NECK: Normal ROM, supple, no lymphadenopathy, JVD, or masses LUNGS: Breath sounds equal, clear to auscultation bilaterally. No wheezes, and no crackles HEART: Regular rate and rhythm, normal S1 and S2, no murmurs, rubs or gallops ABDOMEN: Soft, nontender. No guarding, no rebound. No masses EXTREMITIES: No clubbing or cyanosis. No cords or erythema. (+) Stage 4 decubitus ulcer to the right elbow. (+) Pressure sores on the feet bilaterally. NEUROLOGICAL: Cranial nerves II through XII grossly intact. (+) Nonresponsive. SKIN: Warm <Daija Merritt - Last Filed: 04/24/18 22:49> - Resident Resident Name: Kelly Lopez - ED Attending Attestation I have performed the following: I have examined & evaluated the patient, The case was reviewed & discussed with the resident, I agree w/resident's findings & plan - Medical Decision Making 04/24/18 22:47 Pt comes with fever and anasarca, and stage four pressure ulcers that are likely the cause of his fever. 04/24/18 22:50 Pt will be admitted for osteomyelitis and sepsis. <Kate Barnett - Last Filed: 04/24/18 22:50> Heart Score/ECG Review - History History: Slightly suspicious - Age Age: >/= 65 - Risk Factors Based on the list above the patient has:: >/=3 risk factors or Hx atherosclerotic disease - ECG Intrepretation Rhythm: Irregularly Irregular - Lancaster Lancaster: Normal - P and MA Delta Wave(s) Present: No WPW: No - QRS Poor R Wave Progression: No Q Wave Present: No - ST and T Early Repolarization: No Non Specific ST-T Wave changes: No <Kate Barnett - Last Filed: 04/24/18 22:50>
--- NOTE | 2018-04-24 19:44 | PDOC ---
History of Present Illness - General Stated Complaint: PAIN Time Seen by Provider: 04/24/18 19:29 History Source: EMS Exam Limitations: Clinical Condition, Dementia - History of Present Illness Initial Comments: 04/24/18 19:42 Pt is an 82yo m with PMH of Afib, chronic respiratory failure s/p tracheostomy, CVA with hemiplegia/hemiparesis, CAD, demenita, HLD BIBA from [facility] for worsening ulcer per EMS. Pt has multiple decubitus ulcers, one of concern is located on R elbow. Pt has trachostomy, PEG tube, rectal tube and bauman. Per , pt had an xray done of sacral ulcer with imaging showing ulcer formation to the bone. Last admitted in July 2017 for decubitus ulcer. PCP: Leny PMH: see hpi Meds: coumadin Allergies: nkda Past History - Past Medical History Allergies/Adverse Reactions: Allergies Allergy/AdvReac Type Severity Reaction Status Date / Time latex Allergy Verified 04/24/18 20:03 No Known Drug Allergies Allergy Verified 04/24/18 20:03 Home Medications: Ambulatory Orders Albuterol 2.5/Ipratropium 0.5 [Duoneb -] 1 neb IH Q6H 03/20/16 Ascorbic Acid [Vitamin C -] 500 mg GT DAILY 03/20/16 Carbidopa/Levodopa [Carbidopa-Levodopa 25-100 Tab] 1 each GT BID 03/20/16 Aa/[place]/Arg/C/Zn/Cu [Lps Critical Care Liquid] 30 ml GT DAILY Donepezil HCl [Aricept -] 10 mg GT DAILY 07/09/16 Collagenase Clostridium Hist. [Santyl -] 1 applic TP DAILY tube 07/14/16 Bacitracin - [Bacitracin Topical Ointment -] 1 applic TP DAILY tube 09/05/16 Lactobacillus Acidophilus [Bacid -] 1 tab GT DAILY tab 09/05/16 Scopolamine Hydrobromide [Transderm-Scop -] 1 patch TD Q72H patch.td72 Acetaminophen [Tylenol .Regular Strength -] 650 mg GT ASDIR PRN 07/25/17 Albuterol 2.5/Ipratropium 0.5 [Duoneb -] 1 neb NEB Q4H 07/25/17 Calcium Carbonate/Vitamin D3 [Oyster Shell 500-Vit D3 200 Tb] 1 each GT DAILY Furosemide [Lasix -] 40 mg GT BID@0600,1400 07/25/17 Loperamide HCl [Loperamide] 2 mg GT Q6H 07/25/17 Potassium Chloride Oral Soln [KCl Oral Solution -] 40 meq GT DAILY 07/25/17 Ranitidine Oral Solution [Zantac Oral Solution -] 150 mg GT DAILY 07/25/17 Silver Sulfadiazine 1% Top Cr [Silvadene -] 1 applic TP DAILY 07/25/17 Warfarin Na [Coumadin -] 3.5 mg GT DAILY@1800 07/25/17 Zinc Sulfate [Orazinc -] 220 mg GT BID 07/25/17 oxyCODONE HCL [Roxicodone -] 5 mg GT Q6H 07/25/17 Anemia: No Asthma: No Cancer: No Cardiac Disorders: Yes (AFib) CVA: Yes (right sided weakness) COPD: Yes CHF: No Dementia: Yes Diabetes: No GI Disorders: Yes (GI bleed) Disorders: Yes (UTI, hematuria) HTN: No Hypercholesterolemia: Yes Liver Disease: No Seizures: No Thyroid Disease: No - Surgical History Abdominal Surgery: Yes (RIGHT INGUINAL HERNIA REPAIR) Appendectomy: No Cardiac Surgery: No Cholecystectomy: No Lung Surgery: No Neurologic Surgery: No Orthopedic Surgery: Yes (lt knee replacement, pins in left hip) - Immunization History Td Vaccination: Yes Immunization Up to Date: Yes - Suicide/Smoking/Psychosocial Hx Smoking Status: No Smoking History: Former smoker Years of Tobacco Use: 0 Have you smoked in the past 12 months: No Number of Cigarettes Smoked Daily: 0 If you are a former smoker, when did you quit?: 40 years ago Cigars Per Day: 0 'Breaking Loose' booklet given: 06/15/15 Hx Alcohol Use: No Drug/Substance Use Hx: No Substance Use Type: None Hx Substance Use Treatment: No Review of Systems - Review of Systems Able to Perform ROS?: No *Physical Exam - Physical Exam General Appearance: Yes: Obese, Other (anasarca) HEENT: positive: [place] Neck: positive: Trachea midline, Supple, Other (trachoestomy tube in place). negative: Lymphadenopathy (R), Lymphadenopathy (L) Respiratory/Chest: positive: Lungs Clear. negative: Crackles, Rales, Rhonchi Cardiovascular: positive: Regular Rhythm, S1, S2, Edema, Tachycardia. negative : JVD, Murmur Vascular Pulses: Carotid (R): 2+, Carotid (L): 2+ Gastrointestinal/Abdominal: positive: Normal Bowel Sounds, Soft, Distended, Other (PEG tube in place). negative: Guarding, Rebound, Tenderness Male Genitalia: positive: normal genitalia (bauman in place, no testicular erythma or warmth), other. negative: testicular mass Rectal Exam: positive: other (rectal tube in place. ) Extremity: positive: Normal Capillary Refill, Swelling (anasarca). negative: Coldness, Cyanosis Neurologic: positive: Alert, Respond to painful stimul, Other (per , pt at baseline). negative: grand scribe II-XII NML intact, Fully Oriented, Normal Mood/Affect , Normal Response (cannot fully evaluate due to pt no responding to commands), Motor Strength 5/5 ED Treatment Course - LABORATORY CBC & Chemistry Diagram: 04/26/18 06:30 04/26/18 06:30 - RADIOLOGY Radiology Studies Ordered: Category Date Time Status CHEST X-RAY PORTABLE* [RAD] Stat Radiology 04/24/18 19:36 Ordered Medical Decision Making - Medical Decision Making 04/24/18 19:43 Pt is an 82yo m with PMH of Afib, chronic respiratory failure s/p tracheostomy, CVA, CAD, demenita, HLD BIBA from [facility] for worsening ulcer per EMS. EMS vital: 104/77, 98, capnography 40, Vitals: 100.3, hr 105, bp 102/68. RR at 18-20 Vent set at 12. PE: anasarca, pupils equally round and reactive to light, Unable to fully turn patient to see sacral ulcers. Sent wound culture. CBC, CMP, coags, crp, esr, ua, ekg, cxr Pt started on vanc and zosyn. given LR wbc: 25.4, hgb 8.9 INR 3.06, lac 2.2 repeat 2.5. CRP 13.5 UA positive for infection. electrolytes at baseline. Pt admitted for sepsis most likely from wound infection. *DC/Admit/Observation/Transfer Diagnosis at time of Disposition: Sepsis Qualifiers: Sepsis type: sepsis due to unspecified organism Qualified Code(s): A41.9 - Sepsis, unspecified organism - Discharge Dispostion Condition at time of disposition: Stable Decision to Admit order: Yes - Referrals - Patient Instructions - Post Discharge Activity
[2018-04-24] MEDS ORDERED: PIPERACILLIN/TAZOB 3.375 GM 3.375 GM in DEXTROSE 5%-WATER - 50 ML IVPB ONE (20:08)
[2018-04-24] MEDS ORDERED: ACETAMINOPHEN 1000 MG/100 ML VIAL (NON FORMULARY) IVPB ONE (20:08)
[2018-04-24] MEDS ORDERED: VANCOMYCIN 1,000 MG in DEXTROSE 5%-WATER - 250 ML IVPB ONE (20:08)
[2018-04-24 20:37] LABS: BASO % 0.4 % (0-2.0); EOS % 0.7 % (0-4.5); HEMATOCRIT 29.7 % (35.4-49); HEMOGLOBIN 8.9 GM/dL (11.7-16.9); LYMPH % 9.5 % (8-40); MCH 23.7 pg (25.7-33.7); MCHC 29.9 g/dl (32.0-35.9); MEAN CELL VOLUME 79.2 fl (80-96); MEAN PLT VOLUME 8.1 fl (7.5-11.1); MONO % 12.8 % (3.8-10.2); NEUT % 76.6 % (42.8-82.8); PLATELET COUNT 631 K/MM3 (134-434); RBC 3.75 M/mm3 (4.00-5.60); RDW 19.1 % (11.9-15.9); WHITE BLOOD COUNT 25.4 K/mm3 (4.0-10.0)
[2018-04-24 20:40] LABS: URINE APPEARANCE SLCLOUDY; URINE BILIRUBIN NEGATIVE (<2.0 mg/dL); URINE COLOR LTYELLOW; URINE GLUCOSE (UA) NEGATIVE (NEGATIVE); URINE KETONE NEGATIVE (NEGATIVE); URINE LEUK ESTERASE 3+ (NEGATIVE); URINE NITRITE NEGATIVE (NEGATIVE); URINE PROTEIN NEGATIVE (NEGATIVE); URINE UROBILINOGEN NEGATIVE mg/dL (0.2-1.0)
[2018-04-24 20:47] LABS: VENOUS PC02 38.9 mmHg (38-52); VENOUS PH 7.49 (7.32-7.42)
[2018-04-24 20:51] LABS: GRANULAR CASTS 1 /lpf; URINE HYALINE CAST 7 /lpf
[2018-04-24 20:56] LABS: INR 3.06 (0.83-1.09); PROTHROMBIN TIME (PATIENT) 36.5 SEC (9.7-13.0)
[2018-04-24] MEDS ORDERED: PIPERACILLIN/TAZOB 3.375 GM 3.375 GM/50 ML BAG IVPB ONE (20:58)
[2018-04-24 20:59] LABS: ACTIVATED PTT 42.1 SECONDS (25.2-36.5)
[2018-04-24 21:18] LABS: ALBUMIN 1.4 g/dl (3.4-5.0); ALK PHOS 171 U/L (45-117); ANION GAP 4 MMOL/L (8-16); BILIRUBIN,TOTAL 0.4 mg/dL (0.2-1); BLOOD UREA NITROGEN 54 mg/dL (7-18); CALCIUM 7.6 mg/dL (8.5-10.1); CHLORIDE 113 mmol/L (98-107); CO2 31 mmol/L (21-32); CREATININE 0.8 mg/dL (0.55-1.3); GLUCOSE,RANDOM 113 mg/dL (74-106); POTASSIUM 4.6 mmol/L (3.5-5.1); SGOT/AST 35 U/L (15-37); SGPT/ALT 23 U/L (13-61); SODIUM 148 mmol/L (136-145); TOT PROT 6.9 g/dl (6.4-8.2)
[2018-04-24] MEDS ORDERED: VANCOMYCIN 1 GRAM (PRE-DOCKED) 1,000 MG/250 ML BAG IVPB ONE (21:51)
[2018-04-24 22:20] LABS: PLATELET ESTIMATE INCREASED
[2018-04-24] MEDS ORDERED: ACETAMINOPHEN INJECTION 100 ML IVPB ONE (22:47)
[2018-04-24] MEDS ORDERED: LACTATED RINGERS SOLUTION 1000 ML INFUS.BAG IV ONE (23:00)
--- NOTE | 2018-04-25 01:13 | HP ---
CHIEF COMPLAINT: Sacral ulcer PCP: HISTORY OF PRESENT ILLNESS: Patient is an 82 year old male with history of Afib (on coumadin), chronic respiratory failure (s/p tracheostomy), CVA, CAD, dementia, Parkinson's, presents from [facility] for numerous ulcers of the upper extremity, lower extremity, and sacrum. Patient was last admitted in 07/2017 for sacral ulcer, treated with Zosyn, and surgical debridement. Patient is non-verbal. His at bedside states that an Xray was done at [facility] that was concerning for osteomyelitis, which prompted this hospital visit. ER course was notable for: (1) Ofirmev, Zosyn, Vancomycin, IV LR (2) (3) Recent Travel: PAST MEDICAL HISTORY: PAST SURGICAL HISTORY: unable to obtain Social History: Smoking: unable to obtain Alcohol: unable to obtain Drugs: unable to obtain Family History: Allergies latex Allergy (Verified 04/24/18 20:03) No Known Drug Allergies Allergy (Verified 04/24/18 20:03) HOME MEDICATIONS: Home Medications Medication Instructions Recorded Albuterol 2.5/Ipratropium 0.5 1 neb IH Q6H 03/20/16 [Duoneb -] Ascorbic Acid [Vitamin C -] 500 mg GT DAILY 03/20/16 Carbidopa/Levodopa 1 each GT BID 03/20/16 [Carbidopa-Levodopa 25-100 Tab] Aa/[place] Shar,Whey/Arg/C/Zn/Cu 30 ml GT DAILY 07/09/16 [Lps Critical Care Liquid] Donepezil HCl [Aricept -] 10 mg GT DAILY 07/09/16 Collagenase Clostridium Hist. 1 applic TP DAILY tube 07/14/16 [Santyl -] Bacitracin - [Bacitracin Topical 1 applic TP DAILY tube 09/05/16 Ointment -] Lactobacillus Acidophilus [Bacid -] 1 tab GT DAILY tab 09/05/16 Scopolamine Hydrobromide 1 patch TD Q72H patch.td72 09/05/16 [Transderm-Scop -] Acetaminophen [Tylenol .Regular 650 mg GT ASDIR PRN 07/25/17 Strength -] Albuterol 2.5/Ipratropium 0.5 1 neb NEB Q4H 07/25/17 [Duoneb -] Calcium Carbonate/Vitamin D3 1 each GT DAILY 07/25/17 [Oyster Shell 500-Vit D3 200 Tb] Furosemide [Lasix -] 40 mg GT BID@0600,1400 07/25/17 Loperamide HCl [Loperamide] 2 mg GT Q6H 07/25/17 Potassium Chloride Oral Soln [KCl 40 meq GT DAILY 07/25/17 Oral Solution -] Ranitidine Oral Solution [Zantac 150 mg GT DAILY 07/25/17 Oral Solution -] Silver Sulfadiazine 1% Top Cr 1 applic TP DAILY 07/25/17 [Silvadene -] Warfarin Na [Coumadin -] 3.5 mg GT DAILY@1800 07/25/17 Zinc Sulfate [Orazinc -] 220 mg GT BID 07/25/17 oxyCODONE HCL [Roxicodone -] 5 mg GT Q6H 07/25/17 REVIEW OF SYSTEMS Unable to obtain. Patient is nonverbal. PHYSICAL EXAMINATION Vital Signs - 24 hr 04/24/18 04/24/18 04/24/18 19:30 19:44 20:00 Temperature 100.5 F H 100.6 F H Pulse Rate 100 H Pulse Rate [ 96 H 104 H Left Radial] Respiratory 12 18 18 Rate Blood Pressure 120/60 Blood Pressure 102/68 103/48 L [Left] O2 Sat by Pulse 100 98 100 Oximetry (%) 04/24/18 04/24/18 04/24/18 20:04 20:07 21:07 Temperature 101.4 F H Pulse Rate 106 H Pulse Rate [ Left Radial] Respiratory 22 H Rate Blood Pressure Blood Pressure [Left] O2 Sat by Pulse 93 L Oximetry (%) 04/24/18 04/24/18 23:09 23:33 Temperature Pulse Rate Pulse Rate [ 108 H Left Radial] Respiratory 15 22 H Rate Blood Pressure Blood Pressure 111/51 L [Left] O2 Sat by Pulse Oximetry (%) GENERAL: Patient is non,verbal, nonresponsive. HEAD: Normal with no signs of trauma. EYES: Pupils equal, round and reactive to light, sclera anicteric, conjunctiva clear. EARS, NOSE, THROAT: Dry mucous membranes. Poor dentition. NECK: Trachea midline. Supple without lymphadenopathy. LUNGS: Mechanical breath sounds auscultated equally b/l. No wheezes, and no crackles. HEART: Regular rate and rhythm, normal S1 and S2 without murmur, rub or gallop. ABDOMEN: Soft, not distended. PEG tube noted without erythema or drainage. Normoactive bowel sounds auscultated. No guarding, no rebound tenderness. No hepatomegaly appreciated. Rectal tube noted. Olson catheter noted without erythema at insertion side. UPPER EXTREMITIES: 2+ radial pulses b/l, [place] of hands and arms b/l. Right elbow stage 4 ulcer. LOWER EXTREMITIES: 2+ dorsalis pedis pulses b/l. [place] of legs and feet b/l. B/L stage 4 ulcers at b/l heels of feet. SKIN: Ulcers noted on right elbow, right heel, and left ankle. As per nursing, stage 4 sacral ulcer, unable to examined within ED Laboratory Results - last 24 hr 04/24/18 04/24/18 04/24/18 20:00 20:00 20:00 WBC 25.4 H RBC 3.75 L Hgb 8.9 L Hct 29.7 L MCV 79.2 L MCH 23.7 L MCHC 29.9 L RDW 19.1 H Plt Count 631 H D MPV 8.1 Absolute Neuts (auto) 19.5 H Total Counted 100 Neutrophils % 76.6 Neutrophils % (Manual) 72.0 Lymphocytes % 9.5 D Lymphocytes % (Manual) 8.0 Monocytes % 12.8 H Monocytes % (Manual) 19 H Eosinophils % 0.7 D Eosinophils % (Manual) 1.0 Basophils % 0.4 Nucleated RBC % 0 Platelet Estimate Increased ESR PT with INR 36.50 H INR 3.06 H PTT (Actin FS) 42.1 H VBG pH 7.49 H POC VBG pCO2 38.9 POC VBG pO2 52.0 H Mixed VBG HCO3 29.1 H Sodium Potassium Chloride Carbon Dioxide Anion Gap BUN Creatinine Creat Clearance w eGFR Random Glucose Lactic Acid Calcium Total Bilirubin AST ALT Alkaline Phosphatase Troponin I C-Reactive Protein Total Protein Albumin Urine Color Urine Appearance Urine pH Ur Specific [place] Urine Protein Urine Glucose (UA) Urine Ketones Urine Blood Urine Nitrite Urine Bilirubin Urine Urobilinogen Ur Leukocyte Esterase Urine WBC (Auto) Urine RBC (Auto) Hyaline Casts Granular Casts 04/24/18 04/24/18 04/24/18 20:00 20:00 20:00 WBC RBC Hgb Hct MCV MCH MCHC RDW Plt Count MPV Absolute Neuts (auto) Total Counted Neutrophils % Neutrophils % (Manual) Lymphocytes % Lymphocytes % (Manual) Monocytes % Monocytes % (Manual) Eosinophils % Eosinophils % (Manual) Basophils % Nucleated RBC % Platelet Estimate ESR PT with INR INR PTT (Actin FS) VBG pH POC VBG pCO2 POC VBG pO2 Mixed VBG HCO3 Sodium 148 H Potassium 4.6 Chloride 113 H Carbon Dioxide 31 Anion Gap 4 L BUN 54 H Creatinine 0.8 Creat Clearance w eGFR > 60 Random Glucose 113 H Lactic Acid 2.2 H* Calcium 7.6 L Total Bilirubin 0.4 AST 35 ALT 23 Alkaline Phosphatase 171 H Troponin I < 0.02 C-Reactive Protein 13.5 H Total Protein 6.9 Albumin 1.4 L Urine Color Urine Appearance Urine pH Ur Specific [place] Urine Protein Urine Glucose (UA) Urine Ketones Urine Blood Urine Nitrite Urine Bilirubin Urine Urobilinogen Ur Leukocyte Esterase Urine WBC (Auto) Urine RBC (Auto) Hyaline Casts Granular Casts 04/24/18 04/24/18 20:16 20:40 WBC RBC Hgb Hct MCV MCH MCHC RDW Plt Count MPV Absolute Neuts (auto) Total Counted Neutrophils % Neutrophils % (Manual) Lymphocytes % Lymphocytes % (Manual) Monocytes % Monocytes % (Manual) Eosinophils % Eosinophils % (Manual) Basophils % Nucleated RBC % Platelet Estimate ESR 106 H PT with INR INR PTT (Actin FS) VBG pH POC VBG pCO2 POC VBG pO2 Mixed VBG HCO3 Sodium Potassium Chloride Carbon Dioxide Anion Gap BUN Creatinine Creat Clearance w eGFR Random Glucose Lactic Acid Calcium Total Bilirubin AST ALT Alkaline Phosphatase Troponin I C-Reactive Protein Total Protein Albumin Urine Color Ltyellow Urine Appearance Slcloudy Urine pH 5.0 D Ur Specific [place] 1.011 Urine Protein Negative Urine Glucose (UA) Negative Urine Ketones Negative Urine Blood Negative Urine Nitrite Negative Urine Bilirubin Negative Urine Urobilinogen Negative Ur Leukocyte Esterase 3+ H Urine WBC (Auto) 35 Urine RBC (Auto) None Hyaline Casts 7 Granular Casts 1 ASSESSMENT/PLAN: Patient is an 82 year old male with history of Afib (on coumadin), chronic respiratory failure (s/p tracheostomy), CVA, CAD, dementia, parkinson's, COPD, presents from [facility] for numerous ulcers of the upper extremity, lower extremity, and sacrum. Sepsis secondary to stage IV pressure ulcers vs ventilator associated pneumonia -WBC 25.4, Lactate 2.2 -Zosyn 3.375 gram IV -Received Vancomycin 1 gram IV in ED -Doxycycline 100mg GT -Wound care consult (Dr. Rosario) -ID consult (Dr. Goodson) -F/U repeat lactic acid -F/U blood cultures -F/U urine cultures -F/U CT chest -F/U sacral xray -F/U ESR Hypernatremia -Patient receiving LR 1 liter bolus -Will follow BMP Respiratory failure -Patient is s/p tracheostomy. On ventilator FiO2 30%. -F/U pulmonology consult (Dr. Rodriguez) Afib -INR supratherapeutic at 3.2 -Hold coumadin tonight -Follow INR, Coumadin reinstated for tomorrow. Parkinson's -Carbidopa 25mg-Levodopa 100mg BID Dementia -Donepezil 10mg daily COPD -Duonebs QID Chronic pain -Oxycodone 5mg GT Q6H FEN -LR at 75mL/ hour X1 bag. -Hypernatremia, will follow BMP -NPO until wound care evaluation Prophylaxis -On Coumadin for Afib. INR supratherapeutic. Disposition -Admit to medical-surgical floor. Patient is DNR Visit type - Emergency Visit Emergency Visit: Yes ED Registration Date: 04/24/18 Care time: The patient presented to the Emergency Department on the above date and was hospitalized for further evaluation of their emergent condition. - New Patient This patient is new to me today: Yes Date on this admission: 04/25/18 - Critical Care Critical Care patient: No
[2018-04-25] MEDS: LOPERAMIDE HCL 2 MG CAPSULE GT SCH ×3 (03:00→12:21)
[2018-04-25] MEDS ORDERED: LACTATED RINGERS SOLUTION 1000 ML INFUS.BAG IV ONE (03:18)
[2018-04-25] MEDS: CARBIDOPA/LEVODOPA 25/100 TABLET (FP) GT SCH ×3 (03:25→22:37)
[2018-04-25] MEDS ORDERED: LACTATED RINGERS SOLUTION 1,000 ML IV ONE (03:45)
[2018-04-25] MEDS ORDERED: DOXYCYCLINE MONOHYDRATE 25 MG/5 ML SUSPENSION GT ONE (03:45)
[2018-04-25] MEDS: ALBUTEROL SO4 2.5/IPRATROPIUM 0.5 INH SOL 3 ML VIAL.NEB. NEB SCH (04:00)
[2018-04-25] MEDS ORDERED: oxyCODONE HCL 5 MG TABLET ONE ×3 (04:13→16:56)
[2018-04-25] MEDS ORDERED: CARBIDOPA/LEVODOPA 25/100 TABLET (FP) ONE ×2 (04:14→21:59)
[2018-04-25] MEDS ORDERED: ALBUTEROL SO4 2.5/IPRATROPIUM 0.5 INH SOL 3 ML VIAL.NEB. NEB ONE (04:14)
[2018-04-25] MEDS ORDERED: LOPERAMIDE HCL 2 MG CAPSULE ONE (05:18)
[2018-04-25] MEDS: oxyCODONE HCL 5 MG TABLET GT SCH ×3 (05:20→17:12)
[2018-04-25] MEDS ORDERED: HEPARIN NA (PORCINE) 5,000 UNITS/ML 1ML VIAL SQ SCH (06:00)
--- NOTE | 2018-04-25 07:21 | PN ---
Teaching Attending Note Name of Resident: Marek Mosher ATTENDING PHYSICIAN STATEMENT I saw and evaluated the patient. Chart, data, imaging reviewed. I reviewed the resident's note and discussed the case with the resident. I agree with the resident's findings and plan as documented. SUBJECTIVE: 82 year old man with chronic resp failure on vent-s/p tracheostomy, Afib (on coumadin), CVA, CAD, dementia, parkinson's, COPD, presented from [facility] fevers, numerous foul smelling ulcers of the upper extremity, lower extremity, and sacrum. As per sales exec, had increased trach secretions. OBJECTIVE: Last Vital Signs Temp Pulse Resp BP Pulse Ox 101.2 F H 104 H 12 104/41 L 96 04/25/18 05:28 04/25/18 05:28 04/25/18 06:11 04/25/18 05:28 04/25/18 02:05 general- vented, minimal secretions, 30% fio2 on vent heent- atraumatic neck -trach cv -s1+s+ irregularly irregular chest- coarse breath sounds b/l abdomen- soft, bs+, PEG+ ext + pedal edema b/l Scaral ulcer stage 4- as per nurse- foul smelling, left leg ulcer- purulent, right elbow ulcer Abnormal Lab Results 04/24/18 04/24/18 04/24/18 20:00 20:00 20:00 WBC 25.4 H RBC 3.75 L Hgb 8.9 L Hct 29.7 L MCV 79.2 L MCH 23.7 L MCHC 29.9 L RDW 19.1 H Plt Count 631 H D Absolute Neuts (auto) 19.5 H Monocytes % 12.8 H Monocytes % (Manual) 19 H ESR PT with INR 36.50 H INR 3.06 H PTT (Actin FS) 42.1 H VBG pH 7.49 H POC VBG pO2 52.0 H Mixed VBG HCO3 29.1 H Sodium Chloride Anion Gap BUN Random Glucose Lactic Acid Calcium Alkaline Phosphatase C-Reactive Protein Albumin Ur Leukocyte Esterase 04/24/18 04/24/18 04/24/18 20:00 20:00 20:16 WBC RBC Hgb Hct MCV MCH MCHC RDW Plt Count Absolute Neuts (auto) Monocytes % Monocytes % (Manual) ESR PT with INR INR PTT (Actin FS) VBG pH POC VBG pO2 Mixed VBG HCO3 Sodium 148 H Chloride 113 H Anion Gap 4 L BUN 54 H Random Glucose 113 H Lactic Acid 2.2 H* Calcium 7.6 L Alkaline Phosphatase 171 H C-Reactive Protein 13.5 H Albumin 1.4 L Ur Leukocyte Esterase 3+ H 04/24/18 20:40 WBC RBC Hgb Hct MCV MCH MCHC RDW Plt Count Absolute Neuts (auto) Monocytes % Monocytes % (Manual) ESR 106 H PT with INR INR PTT (Actin FS) VBG pH POC VBG pO2 Mixed VBG HCO3 Sodium Chloride Anion Gap BUN Random Glucose Lactic Acid Calcium Alkaline Phosphatase C-Reactive Protein Albumin Ur Leukocyte Esterase ASSESSMENT AND PLAN #Sepsis secondary to stage IV pressure ulcers vs ventilator associated pneumonia vs UTI -F/U blood cultures -F/U urine cultures -sputum culture -urine legionella ag -F/U repeat lactic acid -IV fluid hydration -Zosyn -Vancomycin -Doxycycline 100mg GT to cover atypicals -Wound care consult (Dr. Rosario)- also for debridement -ID consult (Dr. Goodson) -F/U CT chest -F/U sacral xray -F/U ESR, CRP #Chronic Respiratory failure -Patient is s/p tracheostomy. On ventilator FiO2 30%. -F/U pulmonology consult (Dr. Rodriguez) Afib -INR supratherapeutic at 3.2 -Hold coumadin -Follow INR -restart coumadin -restart chronic home meds -see resident note for details -coumadin for dvt ppx
[2018-04-25 09:38] LABS: HEMOGLOBIN 9.1 GM/dL (11.7-16.9); MCHC 30.5 g/dl (32.0-35.9); MEAN CELL VOLUME 78.6 fl (80-96); MEAN PLT VOLUME 7.9 fl (7.5-11.1); PLATELET COUNT 604 K/MM3 (134-434); RBC 3.81 M/mm3 (4.00-5.60); RDW 19.1 % (11.9-15.9); WHITE BLOOD COUNT 26.6 K/mm3 (4.0-10.0)
[2018-04-25 09:57] LABS: INR 2.54 (0.83-1.09); PROTHROMBIN TIME (PATIENT) 30.3 SEC (9.7-13.0)
[2018-04-25 10:00] LABS: ACTIVATED PTT 41.2 SECONDS (25.2-36.5)
[2018-04-25] MEDS ORDERED: CALCIUM 500MG/VIT-D 200 UNITS COMBO TABLET (FP) GT SCH (10:00)
[2018-04-25] MEDS: ASCORBIC ACID 500 MG TABLET (FP) GT SCH (10:07)
[2018-04-25] MEDS: RANITIDINE HCL 150 MG/10 ML UNIT-DOSE GT SCH (10:07)
--- NOTE | 2018-04-25 11:09 | EKG ---
Test Reason : Blood Pressure : / mmHG Vent. Rate : 100 BPM Atrial Rate : 234 BPM P-R Int : 000 ms QRS Dur : 088 ms QT Int : 360 ms P-R-T Axes : 000 060 030 degrees QTc Int : 464 ms ATRIAL FIBRILLATION LOW VOLTAGE QRS ABNORMAL ECG WHEN COMPARED WITH ECG OF 25-JUL-2017 11:41, ATRIAL FIBRILLATION HAS REPLACED ATRIAL FLUTTER QT HAS LENGTHENED Confirmed by KIN KHAN, REGINA ([id number]) on 04/25/2018 11:09:23 AM Referred By: Confirmed By:REGINA SANDERSON MD
--- NOTE | 2018-04-25 12:56 | PN ---
Progress Note (short form) - Note Progress Note: PULMONARY CONSULTATION DICTATED 04/25/18 IMP CHRONIC RESPIRATORY FAILURE SEPSIS INFECTED DECUBITI CHF AFIB ELEVATED LACTATE LEVEL H/O CVA H/O PARKINSONS PLAN IV ABX PER ID VENT SUPPORT ON AC MODE INHALED BRONCHODILATORS AC DIURETICS F/U CHEST X-RAYS TREND LACTATE CULTURES DR [place] Problem List - Problems (1) A-fib Code(s): I48.91 - UNSPECIFIED ATRIAL FIBRILLATION Qualifiers: Atrial fibrillation type: chronic Qualified Code(s): I48.2 - Chronic atrial fibrillation (2) CHF (congestive heart failure) Code(s): I50.9 - HEART FAILURE, UNSPECIFIED (3) Chronic atrial fibrillation Code(s): I48.2 - CHRONIC ATRIAL FIBRILLATION (4) Chronic osteomyelitis Code(s): M86.60 - OTHER CHRONIC OSTEOMYELITIS, UNSPECIFIED SITE (5) Chronic respiratory failure Code(s): J96.10 - CHRONIC RESPIRATORY FAILURE, UNSP W HYPOXIA OR HYPERCAPNIA Qualifiers: Respiratory failure complication: hypoxia Qualified Code(s): J96.11 - Chronic respiratory failure with hypoxia (6) Dementia Code(s): F03.90 - UNSPECIFIED DEMENTIA WITHOUT BEHAVIORAL DISTURBANCE Qualifiers: Dementia type: Parkinson's disease Dementia behavioral disturbance: with behavioral disturbance Qualified Code(s): G20 - Parkinson's disease (7) Hyperlipemia Code(s): E78.5 - HYPERLIPIDEMIA, UNSPECIFIED (8) PEG (percutaneous endoscopic gastrostomy) adjustment/replacement/removal Code(s): Z43.1 - ENCOUNTER FOR ATTENTION TO GASTROSTOMY (9) Parkinson disease Code(s): G20 - PARKINSON'S DISEASE (10) Pleural effusion Code(s): J90 - PLEURAL EFFUSION, NOT ELSEWHERE CLASSIFIED (11) Sacral decubitus ulcer Code(s): L89.159 - PRESSURE ULCER OF SACRAL REGION, UNSPECIFIED STAGE Qualifiers: Qualified Code(s): L89.153 - Pressure ulcer of sacral region, stage 3 (12) Ventilator dependent Code(s): Z99.11 - DEPENDENCE ON RESPIRATOR [VENTILATOR] STATUS (13) Sepsis Code(s): A41.9 - SEPSIS, UNSPECIFIED ORGANISM (14) Sepsis Code(s): A41.9 - SEPSIS, UNSPECIFIED ORGANISM (15) Lactate blood increase Code(s): R79.89 - OTHER SPECIFIED ABNORMAL FINDINGS OF BLOOD CHEMISTRY
--- NOTE | 2018-04-25 13:47 | CONS ---
DATE OF CONSULTATION: 04/25/2018 REFERRING PHYSICIAN: Robert León MD The patient is an 82-year-old white male known to me from previous hospitalization as well as care home followup with a past medical history of chronic respiratory failure, on ventilatory support, atrial fibrillation, CVA, ASHD, dementia, Parkinson's, resident of [facility], transferred to [facility] secondary to apparently had an x-ray performed of a sacral ulcer that revealed ulcer formation to the bone. The patient was admitted with the above. On admission, he was noted to have an elevated white count. He was placed on broad-spectrum antibiotics. PAST MEDICAL HISTORY: Again, includes atrial fibrillation, chronic respiratory failure, status post tracheostomy, on chronic ventilatory support, CVA with hemiplegia and hemiparesis, ASHD, dementia, hyperlipidemia. REVIEW OF SYSTEMS: Unable to obtain. CURRENT MEDICATIONS: Coumadin; Imodium; DuoNeb; Sinemet; Zantac; Lasix; Roxicodone; Aricept; vitamin C. PHYSICAL EXAMINATION: General: The patient is an obese male, well-developed, well-nourished, fully response, on ventilatory support. Vital Signs: Temperature maximum 101.2, currently 98; blood pressure 121/67; respiratory rate is 20. HEENT: His head is normocephalic, atraumatic. Neck: Supple. Heart: Irregular, regular, S1 and S2. Chest: Symmetric breath sounds bilaterally. Abdomen: Soft. Bowel sounds are positive. Extremities: Bilateral lower extremity edema 4+. LABORATORIES: WBC is 26.6, hemoglobin 9.1, hematocrit 30, platelet count of 604 ,000. Venous blood gas pH 7.49, pCO2 of 30, pO2 of 52, bicarbonate 29. BUN 50, creatinine 0.8, lactate level 2.5. Chest x-ray reveals bilateral pulmonary pleural changes, widened mediastinum, and tracheostomy. No acute infiltrates. There is right pleural effusion, atelectasis. IMPRESSION: 1. Chronic respiratory failure. 2. Sepsis, likely secondary to infected decubitus. 3. History of cerebrovascular accident. 4. Atrial fibrillation. 5. Congestive heart failure. 6. Elevated lactate level. PLAN: Broad-spectrum antibiotics, continue ventilatory support on assist control mode, ID evaluation and IV antibiotics as per Infectious Disease, inhaled bronchodilators, diuretics, continue anticoagulation, trend lactate. Yohana [id number] MTDD
--- NOTE | 2018-04-25 14:12 | CON.ID ---
Consult Consult Specialty:: infectious diseases Reason for Consultation:: ams lethargy,sepsis,wound infection - History of Present Illness Chief Complaint: lethargy.sepsis History of Present Illness: 82 year old male with history of Afib (on coumadin), chronic respiratory failure (s/p tracheostomy), CVA, CAD, dementia, Parkinson's, presents from [facility] for numerous ulcers of the upper extremity, lower extremity, and sacrum. Patient was last admitted in 07/2017 for sacral ulcer, treated with Zosyn, and surgical debridement. Patient is non-verbal. he is non responsive non verbal and on vent - History Source History Provided By: Medical Record Limitations to Obtaining History: Clinical Condition - Past Medical History DIRECTOR OF ANCILLARY SERVICES: Yes: CVA, Dementia, Parkinson's Cardio/Vascular: Yes: AFIB (paroxysmal), CAD, Deep Vein Thrombosis, Hyperlipdemia Pulmonary: Yes: COPD, Pneumonia (repeated aspiration pneumonias, Pseudomonas pneumonia 07/21) Gastrointestinal: Yes: Other (ischemic colitis and sigmoid adenoma removed , gastric cardia polyps) Renal/: Yes: BPH, Renal Calculi Infectious Disease: Yes: Other (, aspiration pneumonia in the past) Psych: Yes: Depression Musculoskeletal: Yes: Hemiplegia - Past Surgical History Past Surgical History: Yes: Colonoscopy, Hernia Repair (right inguinal hernia repair), Upper Endoscopy - Alcohol/Substance Use Hx Alcohol Use: No - Smoking History Smoking history: Former smoker Have you smoked in the past 12 months: No Aproximately how many cigarettes per day: 0 If you are a former smoker, when did you quit?: 40 years ago - Social History Usual Living Arrangement: Half-Way ADL: Support Services (has home health aid) 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, 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 History of Recent Travel: No Home Medications - Allergies Allergies/Adverse Reactions: Allergies Allergy/AdvReac Type Severity Reaction Status Date / Time latex Allergy Verified 04/24/18 20:03 No Known Drug Allergies Allergy Verified 04/24/18 20:03 - Home Medications Home Medications: Ambulatory Orders RX: Albuterol 2.5/Ipratropium 0.5 [Duoneb -] 1 neb IH Q6H 03/20/16 RX: Ascorbic Acid [Vitamin C -] 500 mg GT DAILY 03/20/16 RX: Carbidopa/Levodopa [Carbidopa-Levodopa 25-100 Tab] 1 each GT BID 03/20/16 RX: Aa/[place] Shar,Whey/Arg/C/Zn/Cu [Lps Critical Care Liquid] 30 ml GT DAILY 10/20 RX: Donepezil HCl [Aricept -] 10 mg GT DAILY 07/09/16 RX: Collagenase Clostridium Hist. [Santyl -] 1 applic TP DAILY tube 07/14/16 RX: Bacitracin - [Bacitracin Topical Ointment -] 1 applic TP DAILY tube RX: Lactobacillus Acidophilus [Bacid -] 1 tab GT DAILY tab 09/05/16 RX: Scopolamine Hydrobromide [Transderm-Scop -] 1 patch TD Q72H patch.td72 09/19 RX: Acetaminophen [Tylenol .Regular Strength -] 650 mg GT ASDIR PRN 07/25/17 RX: Albuterol 2.5/Ipratropium 0.5 [Duoneb -] 1 neb NEB Q4H 07/25/17 RX: Calcium Carbonate/Vitamin D3 [Oyster Shell 500-Vit D3 200 Tb] 1 each GT DAILY 07/25/17 RX: Furosemide [Lasix -] 40 mg GT BID@0600,1400 07/25/17 RX: Potassium Chloride Oral Soln [KCl Oral Solution -] 40 meq GT DAILY 07/25/17 RX: Ranitidine Oral Solution [Zantac Oral Solution -] 150 mg GT DAILY 07/25/17 RX: Silver Sulfadiazine 1% Top Cr [Silvadene -] 1 applic TP DAILY 07/25/17 RX: Warfarin Na [Coumadin -] 3.5 mg GT DAILY@1800 07/25/17 RX: Zinc Sulfate [Orazinc -] 220 mg GT BID 07/25/17 RX: oxyCODONE HCL [Roxicodone -] 5 mg GT Q6H 07/25/17 RX: FENTANYL 50mcg PATCH [DURAGESIC 50 mcg PATCH -] 1 patch TD Q72H #10 patch.td72 MDD 1 05/06/18 RX: Scopolamine Hydrobromide [Transderm-Scop -] 1 patch TD Q72H #7 patch.td72 MDD 1 05/06/18 RX: Sodium Hypochlorite [Dakin's Solution 0.25% (Half-Strength) -] 1 applic TP DAILY ml 05/06/18 Review of Systems Unable to obtain ROS, reason: unable to obtain Physical Exam Vital Signs: Vital Signs Temperature 98.8 F 04/25/18 10:26 Pulse Rate 109 H 04/25/18 10:26 Respiratory Rate 12 04/25/18 10:26 Blood Pressure 121/67 04/25/18 10:26 O2 Sat by Pulse Oximetry (%) 96 04/25/18 02:05 Constitutional: Yes: Other Eyes: Yes: Conjunctiva Clear Neck: Yes: Supple, Trachea Midline Cardiovascular: Yes: Regular Rate and Rhythm Respiratory: Yes: Mechanically Ventilated, Other (tracheostomy) Gastrointestinal: Yes: Normal Bowel Sounds, Soft, Other Musculoskeletal: Yes: Other Extremities: Yes: Other (multiple wounds on th elbow sacrum) Wound/Incision: Yes: Other (sacral ulcer,elbow wounds) Neurological: Yes: Other (lethargy) Labs: CBC, BMP 04/25/18 09:20 04/25/18 09:20 Imaging - Results Chest X-ray: Report Reviewed, Image Reviewed Assessment/Plan Problem List - Problems (1) A-fib Code(s): I48.91 - UNSPECIFIED ATRIAL FIBRILLATION Qualifiers: Atrial fibrillation type: chronic Qualified Code(s): I48.2 - Chronic atrial fibrillation (2) CHF (congestive heart failure) Code(s): I50.9 - HEART FAILURE, UNSPECIFIED (3) Chronic atrial fibrillation Code(s): I48.2 - CHRONIC ATRIAL FIBRILLATION (4) Chronic osteomyelitis Code(s): M86.60 - OTHER CHRONIC OSTEOMYELITIS, UNSPECIFIED SITE (5) Chronic respiratory failure Code(s): J96.10 - CHRONIC RESPIRATORY FAILURE, UNSP W HYPOXIA OR HYPERCAPNIA Qualifiers: Respiratory failure complication: hypoxia Qualified Code(s): J96.11 - Chronic respiratory failure with hypoxia (6) Dementia Code(s): F03.90 - UNSPECIFIED DEMENTIA WITHOUT BEHAVIORAL DISTURBANCE Qualifiers: Dementia type: Parkinson's disease Dementia behavioral disturbance: with behavioral disturbance Qualified Code(s): G20 - Parkinson's disease (7) Hyperlipemia Code(s): E78.5 - HYPERLIPIDEMIA, UNSPECIFIED (8) PEG (percutaneous endoscopic gastrostomy) adjustment/replacement/removal Code(s): Z43.1 - ENCOUNTER FOR ATTENTION TO GASTROSTOMY (9) Parkinson disease Code(s): G20 - PARKINSON'S DISEASE (10) Pleural effusion Code(s): J90 - PLEURAL EFFUSION, NOT ELSEWHERE CLASSIFIED (11) Sacral decubitus ulcer Code(s): L89.159 - PRESSURE ULCER OF SACRAL REGION, UNSPECIFIED STAGE Qualifiers: Qualified Code(s): L89.153 - Pressure ulcer of sacral region, stage 3 (12) Ventilator dependent Code(s): Z99.11 - DEPENDENCE ON RESPIRATOR [VENTILATOR] STATUS (13) Sepsis Code(s): A41.9 - SEPSIS, UNSPECIFIED ORGANISM (14) Sepsis Code(s): A41.9 - SEPSIS, UNSPECIFIED ORGANISM (15) Lactate blood increase Code(s): R79.89 - OTHER SPECIFIED ABNORMAL FINDINGS OF BLOOD CHEMISTRY 16 gm negative bacteremia 17 wound infection plan will start patient on broad spectrum abx suctioning resp support cx of the wounds pul i think this could be septic elbow joint ortho opinion rest as per the wound
--- NOTE | 2018-04-25 14:30 | PN ---
Progress Note, Physician Chief Complaint: EVENTS AND NOTES REVIEWED PATIENT IN THE ED, OBTUNDED/LETHARGIC - Current Medication List Current Medications: Active Medications Albuterol/Ipratropium (Duoneb -) 1 amp NEB RQID [facility] Last Admin: 04/25/18 04:00 Dose: 1 amp Ascorbic Acid (Vitamin C -) 500 mg GT DAILY [facility] Last Admin: 04/25/18 10:07 Dose: 500 mg Carbidopa/Levodopa (Sinemet 25/100 -) 1 each GT BID [facility] Last Admin: 04/25/18 10:06 Dose: 1 each Donepezil HCl (Aricept -) 10 mg GT HS [facility] Furosemide (Lasix -) 40 mg GT BID@0600,1400 [facility] Lactated Ringer's (Lactated Ringers Solution) 1,000 mls @ 75 mls/hr IV ONCE ONE Stop: 04/25/18 17:04 Piperacillin Sod/Tazobactam (Sod 3.375 gm/ Dextrose) 50 mls @ 100 mls/hr IVPB Q8H-IV [facility]; Protocol Loperamide HCl (Imodium -) 2 mg GT Q6HPO [facility] Last Admin: 04/25/18 12:21 Dose: Not Given Oxycodone HCl (Roxicodone -) 5 mg GT Q6HPO [facility] Last Admin: 04/25/18 12:23 Dose: 5 mg Ranitidine HCl (Zantac Oral Solution -) 150 mg GT DAILY [facility] Last Admin: 04/25/18 10:07 Dose: 150 mg Warfarin Sodium (Coumadin -) 3 mg PO ONCE@1800 ONE Stop: 04/25/18 18:01 - Objective Vital Signs: Vital Signs Temperature 98.8 F 04/25/18 10:26 Pulse Rate 109 H 04/25/18 10:26 Respiratory Rate 12 04/25/18 10:26 Blood Pressure 121/67 04/25/18 10:26 O2 Sat by Pulse Oximetry (%) 96 04/25/18 02:05 Constitutional: Yes: Moderate Distress, Other Eyes: Yes: Other (ETYTHEMA) HENT: Yes: WNL Neck: Yes: WNL Cardiovascular: Yes: Pulse Irregular Respiratory: Yes: Diminished, On Nasal O2 Gastrointestinal: Yes: Soft, Abdomen, Obese ...Rectal Exam: Yes: Other (RECTAL TUBE WITH BROWN FECES) Genitourinary: Yes: Garnica Present Musculoskeletal: Yes: Muscle Weakness Extremities: Yes: Erythema, Other Edema: Yes Integumentary: Yes: Pressure Ulcer, Rash, Skin Tear, Venous Stasis Changes Wound/Incision: Yes: Open to air, Reddened (MULTIPLE SKIN DECUBITI RANGING FROM ELGS, ELBOWS, BACK), Excoriated, Unapproximated Neurological: Yes: Confusion, Pre-Existing Deficit, Weakness ...Motor Strength: LLE, RLE Psychiatric: Yes: Other Labs: CBC, BMP 04/25/18 09:20 04/25/18 09:20 INR, PTT INR 2.54 (0.83-1.09) H 04/25/18 09:20 Problem List - Problems (1) Lactate blood increase Code(s): R79.89 - OTHER SPECIFIED ABNORMAL FINDINGS OF BLOOD CHEMISTRY (2) Sepsis Code(s): A41.9 - SEPSIS, UNSPECIFIED ORGANISM (3) A-fib Code(s): I48.91 - UNSPECIFIED ATRIAL FIBRILLATION Qualifiers: Atrial fibrillation type: chronic Qualified Code(s): I48.2 - Chronic atrial fibrillation (4) Acute on chronic diastolic CHF (congestive heart failure) Code(s): I50.33 - ACUTE ON CHRONIC DIASTOLIC (CONGESTIVE) HEART FAILURE (5) Acute respiratory failure with hypoxia Code(s): J96.01 - ACUTE RESPIRATORY FAILURE WITH HYPOXIA (6) CHF (congestive heart failure) Code(s): I50.9 - HEART FAILURE, UNSPECIFIED (7) Chronic diarrhea Code(s): K52.9 - NONINFECTIVE GASTROENTERITIS AND COLITIS, UNSPECIFIED (8) Dementia Code(s): F03.90 - UNSPECIFIED DEMENTIA WITHOUT BEHAVIORAL DISTURBANCE Qualifiers: Dementia type: Parkinson's disease Dementia behavioral disturbance: with behavioral disturbance Qualified Code(s): G20 - Parkinson's disease (9) Foot ulcer Code(s): L97.509 - NON-PRESSURE CHRONIC ULCER OTH PRT UNSP FOOT W UNSP SEVERITY Qualifiers: Laterality: left Assessment/Plan IV ABX COUMADIN ON HOLD FOR SURGICAL DEBRIDING RECTAL TUBE IN PLACE CHRONIC DIARRHEA GARNICA CATH WOUND CARE WET TO DRY, WITH BACITRACIN, COLLAGENASE MVI/ZINC/VIT C WOUND HEALING PROTEIN SUPPLEMENTS
[2018-04-25 14:47] LABS: ALBUMIN 1.4 g/dl (3.4-5.0); ALK PHOS 165 U/L (45-117); ANION GAP 9 MMOL/L (8-16); BILIRUBIN,TOTAL 0.5 mg/dL (0.2-1); BLOOD UREA NITROGEN 52 mg/dL (7-18); CALCIUM 7.7 mg/dL (8.5-10.1); CHLORIDE 113 mmol/L (98-107); CO2 27 mmol/L (21-32); CREATININE 0.9 mg/dL (0.55-1.3); GLUCOSE,RANDOM 109 mg/dL (74-106); MAGNESIUM 2.6 mg/dL (1.8-2.4); PHOSPHOROUS 3.8 mg/dL (2.5-4.9); POTASSIUM 4.4 mmol/L (3.5-5.1); SGOT/AST 35 U/L (15-37); SGPT/ALT 15 U/L (13-61); SODIUM 148 mmol/L (136-145); TOT PROT 7.1 g/dl (6.4-8.2)
[2018-04-25] MEDS: FUROSEMIDE 40 MG TABLET (FP) GT SCH (15:30)
[2018-04-25] MEDS ORDERED: PIPERACILLIN/TAZOB 3.375 GM 3.375 GM/50 ML BAG IVPB ONE (16:54)
[2018-04-25] MEDS: PIPERACILLIN/TAZOB 3.375 GM 3.375 GM in DEXTROSE 5%-WATER - 50 ML IVPB SCH ×2 (17:12→17:17)
[2018-04-25] MEDS ORDERED: WARFARIN NA 3 MG TABLET PO ONE (18:00)
[2018-04-25] MEDS ORDERED: DONEPEZIL HCL 5 MG TABLET (FP) ONE (22:00)
[2018-04-25] MEDS: DONEPEZIL HCL 10 MG TABLET (FP) GT SCH (22:37)
[2018-04-26] MEDS: oxyCODONE HCL 5 MG TABLET GT SCH ×4 (00:20→19:01)
[2018-04-26] MEDS ORDERED: oxyCODONE HCL 5 MG TABLET ONE ×4 (01:35→18:59)
[2018-04-26] MEDS ORDERED: PIPERACILLIN/TAZOB 3.375 GM 3.375 GM/50 ML BAG IVPB ONE (01:36)
[2018-04-26] MEDS: PIPERACILLIN/TAZOB 3.375 GM 3.375 GM in DEXTROSE 5%-WATER - 50 ML IVPB SCH ×3 (02:12→18:57)
[2018-04-26 07:35] LABS: HEMATOCRIT 32.5 % (35.4-49); HEMOGLOBIN 9.7 GM/dL (11.7-16.9); MCH 23.8 pg (25.7-33.7); MCHC 29.8 g/dl (32.0-35.9); MEAN PLT VOLUME 8.6 fl (7.5-11.1); PLATELET COUNT 498 K/MM3 (134-434); RBC 4.07 M/mm3 (4.00-5.60); WHITE BLOOD COUNT 18.6 K/mm3 (4.0-10.0)
[2018-04-26 08:10] LABS: ALBUMIN 1.4 g/dl (3.4-5.0); ALK PHOS 161 U/L (45-117); ANION GAP 6 MMOL/L (8-16); BILIRUBIN,TOTAL 0.6 mg/dL (0.2-1); BLOOD UREA NITROGEN 50 mg/dL (7-18); CALCIUM 7.5 mg/dL (8.5-10.1); CHLORIDE 113 mmol/L (98-107); CO2 27 mmol/L (21-32); CREATININE 0.9 mg/dL (0.55-1.3); GLUCOSE,RANDOM 89 mg/dL (74-106); SGOT/AST 48 U/L (15-37); SGPT/ALT 10 U/L (13-61); SODIUM 146 mmol/L (136-145); TOT PROT 7.3 g/dl (6.4-8.2)
[2018-04-26 08:17] LABS: INR 1.82 (0.83-1.09); PROTHROMBIN TIME (PATIENT) 21.6 SEC (9.7-13.0)
--- NOTE | 2018-04-26 09:03 | PN ---
Progress Note, Physician History of Present Illness: Patient is an 82 year old male with history of Afib (on coumadin), chronic respiratory failure (s/p tracheostomy), CVA, CAD, dementia, parkinson's, COPD, presents from [facility] for numerous ulcers of the upper extremity, lower extremity, and sacrum. - Current Medication List Current Medications: Active Medications Albuterol/Ipratropium (Duoneb -) 1 amp NEB RQID [facility] Last Admin: 04/25/18 04:00 Dose: 1 amp Amino Acids (Prosource No Carb Liquid Pkt) 30 ml PO BID@0800,1730 [facility] Ascorbic Acid (Vitamin C -) 500 mg GT DAILY [facility] Last Admin: 04/25/18 10:07 Dose: 500 mg Carbidopa/Levodopa (Sinemet 25/100 -) 1 each GT BID [facility] Last Admin: 04/25/18 22:37 Dose: 1 each Donepezil HCl (Aricept -) 10 mg GT HS [facility] Last Admin: 04/25/18 22:37 Dose: 10 mg Furosemide (Lasix -) 40 mg GT BID@0600,1400 [facility] Last Admin: 04/25/18 15:30 Dose: 40 mg Piperacillin Sod/Tazobactam (Sod 3.375 gm/ Dextrose) 50 mls @ 100 mls/hr IVPB Q8H-IV [facility]; Protocol Last Admin: 04/26/18 02:12 Dose: 100 mls/hr Multivitamins/Minerals/Vitamin C (Tab-A-Vit -) 1 tab PO DAILY [facility] Oxycodone HCl (Roxicodone -) 5 mg GT Q6HPO [facility] Last Admin: 04/26/18 06:49 Dose: 5 mg Ranitidine HCl (Zantac Oral Solution -) 150 mg GT DAILY [facility] Last Admin: 04/25/18 10:07 Dose: 150 mg Zinc Sulfate (Orazinc -) 220 mg PO DAILY [facility] - Objective Vital Signs: Vital Signs Temperature 99 F 04/26/18 06:50 Pulse Rate 100 H 04/26/18 06:50 Respiratory Rate 14 04/26/18 06:50 Blood Pressure 121/58 L 04/26/18 06:50 O2 Sat by Pulse Oximetry (%) 99 04/25/18 21:00 Cardiovascular: Yes: S1, S2 Respiratory: Yes: Mechanically Ventilated Gastrointestinal: Yes: Normal Bowel Sounds, Soft Labs: CBC, BMP 04/26/18 06:30 04/26/18 06:30 INR, PTT INR 1.82 (0.83-1.09) H 04/26/18 06:30 Problem List - Problems (1) Sepsis Assessment/Plan: -SURGICAL CONSULT -ABX PER ID Code(s): A41.9 - SEPSIS, UNSPECIFIED ORGANISM (2) A-fib Assessment/Plan: COUMADIN PER INR---HOLD IF SURGERY PLANNED Laboratory Tests 04/25/18 04/26/18 09:20 06:30 INR 2.54 H 1.82 H Code(s): I48.91 - UNSPECIFIED ATRIAL FIBRILLATION Qualifiers: Atrial fibrillation type: chronic Qualified Code(s): I48.2 - Chronic atrial fibrillation (3) CHF (congestive heart failure) Assessment/Plan: AWAIT CT RESULTS Code(s): I50.9 - HEART FAILURE, UNSPECIFIED (4) Pressure ulcer Assessment/Plan: Sepsis secondary to stage IV pressure ulcers vs ventilator associated pneumonia -WBC 25.4, Lactate 2.2 -Zosyn 3.375 gram IV -Received Vancomycin 1 gram IV in ED -Doxycycline 100mg GT -Wound care consult (Dr. Rosario) -ID consult (Dr. Goodson) -F/U repeat lactic acid -F/U blood cultures -F/U urine cultures -F/U CT chest -F/U sacral xray -F/U ESR Code(s): L89.90 - PRESSURE ULCER OF UNSPECIFIED SITE, UNSPECIFIED STAGE (5) Respiratory failure Assessment/Plan: -PER PULM Code(s): J96.90 - RESPIRATORY FAILURE, UNSP, UNSP W HYPOXIA OR HYPERCAPNIA Qualifiers: Chronicity: acute Respiratory failure complication: hypoxia and hypercapnia Qualified Code(s): J96.01 - Acute respiratory failure with hypoxia
[2018-04-26] MEDS: AMINO ACIDS/PROTEIN HYDROLYS 30 ML LIQUID.PKT PO SCH ×2 (11:16→17:35)
[2018-04-26] MEDS: ZINC SULFATE 220 MG CAPSULE (FP) PO SCH (11:18)
[2018-04-26] MEDS: CARBIDOPA/LEVODOPA 25/100 TABLET (FP) GT SCH ×2 (11:20→22:10)
[2018-04-26] MEDS: ASCORBIC ACID 500 MG TABLET (FP) GT SCH (11:21)
[2018-04-26] MEDS: MULTIVITAMINS (DAILY MVI) TABLET (FP) PO SCH (11:21)
[2018-04-26] MEDS: RANITIDINE HCL 150 MG/10 ML UNIT-DOSE GT SCH (11:22)
--- NOTE | 2018-04-26 11:38 | CONSULT ---
- Consultation REQUESTING PROVIDER: CONSULT REQUEST: We have been asked to surgically evaluate this patient for decubitus sacral ulcers PCP:Ronal Jenkins HISTORY OF PRESENT ILLNESS: 82yo M was admitted to the hospital for concerns of osteomyolitis and infected decubitus ulcer. Pt has a history of advanced Parkinsons and is trached and vented and non verbal. History was obtained from chart. Pt is bedbound living in SNF and was sent to the ED after having x-ray that was concerned for osteomyolitis in his multiple decubitus ulcers. Pt was found to be febrile and WBC of 25 when he arrived in ED. Pt started on abx and is currently afebrile with decreasing wbc. PMHx: Afib (on coumadin), chronic respiratory failure (s/p tracheostomy), CVA, CAD, dementia, Parkinson's Home Medications Medication Instructions Recorded Albuterol 2.5/Ipratropium 0.5 1 neb IH Q6H 03/20/16 [Duoneb -] Ascorbic Acid [Vitamin C -] 500 mg GT DAILY 03/20/16 Carbidopa/Levodopa 1 each GT BID 03/20/16 [Carbidopa-Levodopa 25-100 Tab] Aa/[place]/Arg/C/Zn/Cu 30 ml GT DAILY 07/09/16 [Lps Critical Care Liquid] Donepezil HCl [Aricept -] 10 mg GT DAILY 07/09/16 Collagenase Clostridium Hist. 1 applic TP DAILY tube 07/14/16 [Santyl -] Bacitracin - [Bacitracin Topical 1 applic TP DAILY tube 09/05/16 Ointment -] Lactobacillus Acidophilus [Bacid -] 1 tab GT DAILY tab 09/05/16 Scopolamine Hydrobromide 1 patch TD Q72H patch.td72 09/05/16 [Transderm-Scop -] Acetaminophen [Tylenol .Regular 650 mg GT ASDIR PRN 07/25/17 Strength -] Albuterol 2.5/Ipratropium 0.5 1 neb NEB Q4H 07/25/17 [Duoneb -] Calcium Carbonate/Vitamin D3 1 each GT DAILY 07/25/17 [Oyster Shell 500-Vit D3 200 Tb] Furosemide [Lasix -] 40 mg GT BID@0600,1400 07/25/17 Loperamide HCl [Loperamide] 2 mg GT Q6H 07/25/17 Potassium Chloride Oral Soln [KCl 40 meq GT DAILY 07/25/17 Oral Solution -] Ranitidine Oral Solution [Zantac 150 mg GT DAILY 07/25/17 Oral Solution -] Silver Sulfadiazine 1% Top Cr 1 applic TP DAILY 07/25/17 [Silvadene -] Warfarin Na [Coumadin -] 3.5 mg GT DAILY@1800 07/25/17 Zinc Sulfate [Orazinc -] 220 mg GT BID 07/25/17 oxyCODONE HCL [Roxicodone -] 5 mg GT Q6H 07/25/17 Allergies Allergy/AdvReac Type Severity Reaction Status Date / Time latex Allergy Verified 04/24/18 20:03 No Known Drug Allergies Allergy Verified 04/24/18 20:03 REVIEW OF SYSTEMS: unable to obtained PHYSICAL EXAM: GENERAL: Awake, unresponsive to verbal stimuli HEAD: Normal with no signs of trauma. EYES: PERRL, sclera anicteric, conjunctiva clear. LUNGS: Trach and vent in place UPPER EXTREMITIES: +2 edema Back: Left buttock 4cm x 5cm decub ulcer stage 4, gluteal cleft showed 3cm x 4cm stage 4 sacral decub, and 6cm x 8cm stage 4 sacral decub, relatively clean, with serous foul smelling discharge. Some fibrinous tissue present, no significant collections or necrotic tissue. PSYCH: Cooperative. Good eye contact. Appropriate mood and affect. SKIN: Warm, dry, diffuse edema throughout extremities and back. Vital Signs Temperature 99 F 04/26/18 06:50 Pulse Rate 96 H 04/26/18 09:06 Respiratory Rate 14 04/26/18 09:06 Blood Pressure 125/47 L 04/26/18 09:06 O2 Sat by Pulse Oximetry (%) 99 04/25/18 21:00 Lab Results WBC 18.6 K/mm3 (4.0-10.0) H 04/26/18 06:30 RBC 4.07 M/mm3 (4.00-5.60) 04/26/18 06:30 Hgb 9.7 GM/dL (11.7-16.9) L 04/26/18 06:30 Hct 32.5 % (35.4-49) L 04/26/18 06:30 MCV 80.0 fl (80-96) 04/26/18 06:30 MCHC 29.8 g/dl (32.0-35.9) L 04/26/18 06:30 RDW 19.0 % (11.9-15.9) H 04/26/18 06:30 Plt Count 498 K/MM3 (134-434) H 04/26/18 06:30 Sodium 146 mmol/L (136-145) H 04/26/18 06:30 Potassium 5.0 mmol/L (3.5-5.1) 04/26/18 06:30 Chloride 113 mmol/L (98-107) H 04/26/18 06:30 Carbon Dioxide 27 mmol/L (21-32) 04/26/18 06:30 Anion Gap 6 MMOL/L (8-16) L 04/26/18 06:30 BUN 50 mg/dL (7-18) H 04/26/18 06:30 Creatinine 0.9 mg/dL (0.55-1.3) 04/26/18 06:30 Random Glucose 89 mg/dL (74-106) 04/26/18 06:30 Calcium 7.5 mg/dL (8.5-10.1) L 04/26/18 06:30 INR 1.82 (0.83-1.09) H 04/26/18 06:30 Problem List - Problems (1) Sacral decubitus ulcer Assessment/Plan: Plan -santyl and wet to dry dressings on ulcers -bed turning Q2hr -consider air mattress -no need for surgical debridement at this time, please contact vascular surgery if any changes Code(s): L89.159 - PRESSURE ULCER OF SACRAL REGION, UNSPECIFIED STAGE Qualifiers: Qualified Code(s): L89.153 - Pressure ulcer of sacral region, stage 3
[2018-04-26] MEDS ORDERED: PT OWN MED DRAWER 7, Y5N ONE ×6 (12:49→19:11)
--- NOTE | 2018-04-26 13:02 | PN ---
Progress Note, Physician History of Present Illness: patient continues to be mentally non responsive on vent still tracheostomy Pt has a history of advanced Parkinsons and is trached and vented and non verbal. - Current Medication List Current Medications: Active Medications Albuterol/Ipratropium (Duoneb -) 1 amp NEB RQID [facility] Last Admin: 04/25/18 04:00 Dose: 1 amp Amino Acids (Prosource No Carb Liquid Pkt) 30 ml PO BID@0800,1730 [facility] Last Admin: 04/26/18 11:16 Dose: 30 ml Ascorbic Acid (Vitamin C -) 500 mg GT DAILY [facility] Last Admin: 04/26/18 11:21 Dose: 500 mg Carbidopa/Levodopa (Sinemet 25/100 -) 1 each GT BID [facility] Last Admin: 04/26/18 11:20 Dose: 1 each Donepezil HCl (Aricept -) 10 mg GT HS [facility] Last Admin: 04/25/18 22:37 Dose: 10 mg Furosemide (Lasix -) 40 mg GT BID@0600,1400 [facility] Last Admin: 04/25/18 15:30 Dose: 40 mg Piperacillin Sod/Tazobactam (Sod 3.375 gm/ Dextrose) 50 mls @ 100 mls/hr IVPB Q8H-IV [facility]; Protocol Last Admin: 04/26/18 11:22 Dose: 100 mls/hr Multivitamins/Minerals/Vitamin C (Tab-A-Vit -) 1 tab PO DAILY [facility] Last Admin: 04/26/18 11:21 Dose: 1 tab Oxycodone HCl (Roxicodone -) 5 mg GT Q6HPO [facility] Last Admin: 04/26/18 06:49 Dose: 5 mg Ranitidine HCl (Zantac Oral Solution -) 150 mg GT DAILY [facility] Last Admin: 04/26/18 11:22 Dose: 150 mg Zinc Sulfate (Orazinc -) 220 mg PO DAILY [facility] Last Admin: 04/26/18 11:18 Dose: 220 mg - Objective Vital Signs: Vital Signs Temperature 99 F 04/26/18 06:50 Pulse Rate 96 H 04/26/18 09:06 Respiratory Rate 18 04/26/18 12:07 Blood Pressure 125/47 L 04/26/18 09:06 O2 Sat by Pulse Oximetry (%) 99 04/25/18 21:00 Constitutional: Yes: Other (non verbal,trach) Cardiovascular: Yes: Regular Rate and Rhythm Respiratory: Yes: Mechanically Ventilated, Other (trach) Gastrointestinal: Yes: Normal Bowel Sounds, Soft Musculoskeletal: Yes: Other Extremities: Yes: Other Wound/Incision: Yes: Other (sacral decubitus) Neurological: Yes: Other (ams) Labs: CBC, BMP 04/26/18 06:30 04/26/18 06:30 INR, PTT INR 1.82 (0.83-1.09) H 04/26/18 06:30 Assessment/Plan Problem List - Problems (1) A-fib Code(s): I48.91 - UNSPECIFIED ATRIAL FIBRILLATION Qualifiers: Atrial fibrillation type: chronic Qualified Code(s): I48.2 - Chronic atrial fibrillation (2) CHF (congestive heart failure) Code(s): I50.9 - HEART FAILURE, UNSPECIFIED (3) Chronic atrial fibrillation Code(s): I48.2 - CHRONIC ATRIAL FIBRILLATION (4) Chronic osteomyelitis Code(s): M86.60 - OTHER CHRONIC OSTEOMYELITIS, UNSPECIFIED SITE (5) Chronic respiratory failure Code(s): J96.10 - CHRONIC RESPIRATORY FAILURE, UNSP W HYPOXIA OR HYPERCAPNIA Qualifiers: Respiratory failure complication: hypoxia Qualified Code(s): J96.11 - Chronic respiratory failure with hypoxia (6) Dementia Code(s): F03.90 - UNSPECIFIED DEMENTIA WITHOUT BEHAVIORAL DISTURBANCE Qualifiers: Dementia type: Parkinson's disease Dementia behavioral disturbance: with behavioral disturbance Qualified Code(s): G20 - Parkinson's disease (7) Hyperlipemia Code(s): E78.5 - HYPERLIPIDEMIA, UNSPECIFIED (8) PEG (percutaneous endoscopic gastrostomy) adjustment/replacement/removal Code(s): Z43.1 - ENCOUNTER FOR ATTENTION TO GASTROSTOMY (9) Parkinson disease Code(s): G20 - PARKINSON'S DISEASE (10) Pleural effusion Code(s): J90 - PLEURAL EFFUSION, NOT ELSEWHERE CLASSIFIED (11) Sacral decubitus ulcer Code(s): L89.159 - PRESSURE ULCER OF SACRAL REGION, UNSPECIFIED STAGE Qualifiers: Qualified Code(s): L89.153 - Pressure ulcer of sacral region, stage 3 (12) Ventilator dependent Code(s): Z99.11 - DEPENDENCE ON RESPIRATOR [VENTILATOR] STATUS (13) Sepsis Code(s): A41.9 - SEPSIS, UNSPECIFIED ORGANISM (14) Sepsis Code(s): A41.9 - SEPSIS, UNSPECIFIED ORGANISM (15) Lactate blood increase Code(s): R79.89 - OTHER SPECIFIED ABNORMAL FINDINGS OF BLOOD CHEMISTRY 16 gm negative bacteremia 17 wound infection patient who has comein with infected sacral decubitus in sepsis still non verbal wbc are trending down now with multiple organisms growing from the wound and also gm negative bacteremia patient still in sepsis received abx plan will continue abx will add vanco wound care as per pul resp support wbc improved rest continue as per the team
[2018-04-26] MEDS ORDERED: ALBUTEROL SO4 2.5/IPRATROPIUM 0.5 INH SOL 3 ML VIAL.NEB. NEB ONE ×2 (13:03→18:34)
--- NOTE | 2018-04-26 13:03 | PN ---
Progress Note (short form) - Note Progress Note: PULMONARY Vented, unresponsive. Fever curve trending down. Vital Signs Period Temp Pulse Resp BP Sys/Limon Pulse Ox Last 24 Hr 98.7 F-99 F 96-108 12-18 110-125/47-75 99 Gen: vented, unresponsive Heart: RRR Lung: scattered rhonchi Abd: soft, nontender Ext: + edema CBC, BMP 04/26/18 06:30 04/26/18 06:30 Active Medications Albuterol/Ipratropium (Duoneb -) 1 amp NEB RQID [facility] Last Admin: 04/25/18 04:00 Dose: 1 amp Amino Acids (Prosource No Carb Liquid Pkt) 30 ml PO BID@0800,1730 [facility] Last Admin: 04/26/18 11:16 Dose: 30 ml Ascorbic Acid (Vitamin C -) 500 mg GT DAILY [facility] Last Admin: 04/26/18 11:21 Dose: 500 mg Carbidopa/Levodopa (Sinemet 25/100 -) 1 each GT BID [facility] Last Admin: 04/26/18 11:20 Dose: 1 each Donepezil HCl (Aricept -) 10 mg GT HS [facility] Last Admin: 04/25/18 22:37 Dose: 10 mg Furosemide (Lasix -) 40 mg GT BID@0600,1400 [facility] Last Admin: 04/25/18 15:30 Dose: 40 mg Piperacillin Sod/Tazobactam (Sod 3.375 gm/ Dextrose) 50 mls @ 100 mls/hr IVPB Q8H-IV [facility]; Protocol Last Admin: 04/26/18 11:22 Dose: 100 mls/hr Multivitamins/Minerals/Vitamin C (Tab-A-Vit -) 1 tab PO DAILY [facility] Last Admin: 04/26/18 11:21 Dose: 1 tab Oxycodone HCl (Roxicodone -) 5 mg GT Q6HPO [facility] Last Admin: 04/26/18 06:49 Dose: 5 mg Ranitidine HCl (Zantac Oral Solution -) 150 mg GT DAILY [facility] Last Admin: 04/26/18 11:22 Dose: 150 mg Zinc Sulfate (Orazinc -) 220 mg PO DAILY [facility] Last Admin: 04/26/18 11:18 Dose: 220 mg A/P Chronic Respiratory Failure Decubitus Ulcer Infection UTI Gram Negative Bacteremia Sepsis Lactic Acidosis LV Diastolic Dysfunction Atrial Fibrillation h/o CVA Parkinsons Dementia - continue antibiotics - f/u cultures - inhaled bronchodilators - continue volume assist control - poor candidate for weaning due to mental status - enteral feeds - DVT/GI prophylaxis
[2018-04-26] MEDS: FUROSEMIDE 40 MG TABLET (FP) GT SCH ×2 (13:04→14:06)
[2018-04-26] MEDS: ALBUTEROL SO4 2.5/IPRATROPIUM 0.5 INH SOL 3 ML VIAL.NEB. NEB SCH ×4 (13:07→20:47)
[2018-04-26] MEDS: VANCOMYCIN 1,250 MG in DEXTROSE 5%-WATER - 250 ML IVPB SCH (16:21)
[2018-04-26] MEDS ORDERED: CARBIDOPA/LEVODOPA 25/100 TABLET (FP) ONE (21:47)
[2018-04-27] MEDS: PIPERACILLIN/TAZOB 3.375 GM 3.375 GM in DEXTROSE 5%-WATER - 50 ML IVPB SCH ×3 (02:45→18:14)
[2018-04-27] MEDS ORDERED: FUROSEMIDE 40 MG TABLET (FP) ONE (06:22)
[2018-04-27] MEDS ORDERED: oxyCODONE HCL 5 MG TABLET ONE (06:23)
[2018-04-27] MEDS: FUROSEMIDE 40 MG TABLET (FP) GT SCH ×2 (06:30→15:04)
[2018-04-27] MEDS: oxyCODONE HCL 5 MG TABLET GT SCH ×4 (06:30→23:20)
[2018-04-27] MEDS ORDERED: PIPERACILLIN/TAZOB 3.375 GM 3.375 GM/50 ML BAG IVPB ONE (06:31)
[2018-04-27] MEDS: ALBUTEROL SO4 2.5/IPRATROPIUM 0.5 INH SOL 3 ML VIAL.NEB. NEB SCH ×4 (08:42→20:38)
--- NOTE | 2018-04-27 10:53 | PN ---
Progress Note (short form) - Note Progress Note: PULMONARY Vented, unresponsive. No fevers recorded. Vital Signs Period Temp Pulse Resp BP Sys/Limon Pulse Ox Last 24 Hr 98.6 F-99.5 F 75-103 12-21 106-120/30-75 97-100 Gen: vented, unresponsive Heart: RRR Lung: scattered rhonchi Abd: soft, nontender Ext: + edema CBC, BMP 04/26/18 06:30 04/26/18 06:30 Active Medications Albuterol/Ipratropium (Duoneb -) 1 amp NEB RQID [facility] Last Admin: 04/27/18 08:42 Dose: 1 amp Amino Acids (Prosource No Carb Liquid Pkt) 30 ml PO BID@0800,1730 [facility] Last Admin: 04/26/18 17:35 Dose: 30 ml Ascorbic Acid (Vitamin C -) 500 mg GT DAILY [facility] Last Admin: 04/26/18 11:21 Dose: 500 mg Carbidopa/Levodopa (Sinemet 25/100 -) 1 each GT BID [facility] Last Admin: 04/26/18 22:10 Dose: 1 each Donepezil HCl (Aricept -) 10 mg GT HS [facility] Last Admin: 04/25/18 22:37 Dose: 10 mg Furosemide (Lasix -) 40 mg GT BID@0600,1400 [facility] Last Admin: 04/27/18 06:30 Dose: 40 mg Piperacillin Sod/Tazobactam (Sod 3.375 gm/ Dextrose) 50 mls @ 100 mls/hr IVPB Q8H-IV [facility]; Protocol Last Admin: 04/27/18 02:45 Dose: 100 mls/hr Vancomycin HCl 1,250 mg/ (Dextrose) 250 mls @ 166.667 mls/hr IVPB Q24H [facility]; Protocol Last Admin: 04/26/18 16:21 Dose: 166.667 mls/hr Multivitamins/Minerals/Vitamin C (Tab-A-Vit -) 1 tab PO DAILY [facility] Last Admin: 04/26/18 11:21 Dose: 1 tab Oxycodone HCl (Roxicodone -) 5 mg GT Q6HPO [facility] Last Admin: 04/27/18 06:30 Dose: 5 mg Ranitidine HCl (Zantac Oral Solution -) 150 mg GT DAILY [facility] Last Admin: 04/26/18 11:22 Dose: 150 mg Zinc Sulfate (Orazinc -) 220 mg PO DAILY [facility] Last Admin: 04/26/18 11:18 Dose: 220 mg A/P Chronic Respiratory Failure Decubitus Ulcer Infection UTI Gram Negative Bacteremia Sepsis Lactic Acidosis LV Diastolic Dysfunction Atrial Fibrillation h/o CVA Parkinsons Dementia - continue antibiotics - f/u cultures - inhaled bronchodilators - continue volume assist control - poor candidate for weaning due to mental status - enteral feeds - DVT/GI prophylaxis
[2018-04-27] MEDS ORDERED: PT OWN MED DRAWER 7, Y5N ONE ×2 (10:56→12:27)
[2018-04-27] MEDS ORDERED: PIPERACILLIN/TAZOBACTAM 3.375 GM VIAL IVPB ONE ×2 (10:57→18:08)
[2018-04-27] MEDS ORDERED: DEXTROSE 5%-WATER - 50 ML IVPB ONE ×2 (10:57→18:08)
[2018-04-27] MEDS: MULTIVITAMINS (DAILY MVI) TABLET (FP) PO SCH (10:59)
[2018-04-27] MEDS: AMINO ACIDS/PROTEIN HYDROLYS 30 ML LIQUID.PKT PO SCH ×2 (10:59→18:14)
[2018-04-27] MEDS: ZINC SULFATE 220 MG CAPSULE (FP) PO SCH (10:59)
[2018-04-27] MEDS: RANITIDINE HCL 150 MG/10 ML UNIT-DOSE GT SCH (10:59)
[2018-04-27] MEDS: ASCORBIC ACID 500 MG TABLET (FP) GT SCH (10:59)
[2018-04-27] MEDS: CARBIDOPA/LEVODOPA 25/100 TABLET (FP) GT SCH ×2 (10:59→21:21)
--- NOTE | 2018-04-27 12:24 | PN ---
Progress Note, Physician Chief Complaint: sepsis History of Present Illness: NAD on mechanical vent Seen by ID On IV abx Cultures: Microbiology 04/24/18 20:35 Elbow - Right Gram Stain - Final 04/24/18 20:35 Elbow - Right Wound Culture - Preliminary Escherichia Coli Esbl Reception Lactose Fermenting Neg Bacilli#2 Mr S Aureus Group D Strep Or Entero Coccus Streptococcus Species Pending Organism 04/24/18 20:00 Blood - Peripheral Venous Blood Culture - Preliminary Pseudomonas Species 04/24/18 20:00 Blood - Peripheral Venous Blood Culture - Preliminary NO GROWTH OBTAINED AFTER 48 HOURS, INCUBATION TO CONTINUE FOR 3 DAYS. 04/24/18 20:16 Urine - Urine - Catheterized Urine Culture - Final Afebrile overnight - Current Medication List Current Medications: Active Medications Albuterol/Ipratropium (Duoneb -) 1 amp NEB RQID [facility] Last Admin: 04/27/18 08:42 Dose: 1 amp Amino Acids (Prosource No Carb Liquid Pkt) 30 ml PO BID@0800,1730 [facility] Last Admin: 04/27/18 10:59 Dose: 30 ml Ascorbic Acid (Vitamin C -) 500 mg GT DAILY [facility] Last Admin: 04/27/18 10:59 Dose: 500 mg Carbidopa/Levodopa (Sinemet 25/100 -) 1 each GT BID [facility] Last Admin: 04/27/18 10:59 Dose: 1 each Donepezil HCl (Aricept -) 10 mg GT HS [facility] Last Admin: 04/25/18 22:37 Dose: 10 mg Furosemide (Lasix -) 40 mg GT BID@0600,1400 [facility] Last Admin: 04/27/18 06:30 Dose: 40 mg Piperacillin Sod/Tazobactam (Sod 3.375 gm/ Dextrose) 50 mls @ 100 mls/hr IVPB Q8H-IV [facility]; Protocol Last Admin: 04/27/18 10:59 Dose: 100 mls/hr Vancomycin HCl 1,250 mg/ (Dextrose) 250 mls @ 166.667 mls/hr IVPB Q24H [facility]; Protocol Last Admin: 04/26/18 16:21 Dose: 166.667 mls/hr Multivitamins/Minerals/Vitamin C (Tab-A-Vit -) 1 tab PO DAILY [facility] Last Admin: 04/27/18 10:59 Dose: 1 tab Oxycodone HCl (Roxicodone -) 5 mg GT Q6HPO [facility] Last Admin: 04/27/18 06:30 Dose: 5 mg Ranitidine HCl (Zantac Oral Solution -) 150 mg GT DAILY [facility] Last Admin: 04/27/18 10:59 Dose: 150 mg Zinc Sulfate (Orazinc -) 220 mg PO DAILY [facility] Last Admin: 04/27/18 10:59 Dose: 220 mg - Objective Vital Signs: Vital Signs Temperature 98.6 F 04/27/18 07:00 Pulse Rate 98 H 04/27/18 07:00 Respiratory Rate 16 04/27/18 07:00 Blood Pressure 120/75 04/27/18 07:00 O2 Sat by Pulse Oximetry (%) 97 04/27/18 06:48 Constitutional: Yes: Well Nourished, No Distress, Calm Cardiovascular: Yes: Regular Rate and Rhythm Respiratory: Yes: Mechanically Ventilated, Rhonchi Gastrointestinal: Yes: Normal Bowel Sounds, Soft Genitourinary: Yes: Olson Present Musculoskeletal: Yes: WNL Extremities: Yes: WNL Neurological: Yes: Pre-Existing Deficit Labs: CBC, BMP 04/26/18 06:30 04/26/18 06:30 INR, PTT INR 1.82 (0.83-1.09) H 04/26/18 06:30 Problem List - Problems (1) Sepsis Assessment/Plan: culture: Microbiology 04/24/18 20:35 Elbow - Right Gram Stain - Final 04/24/18 20:35 Elbow - Right Wound Culture - Preliminary Escherichia Coli Esbl Reception Lactose Fermenting Neg Bacilli#2 Mr S Aureus Group D Strep Or Entero Coccus Streptococcus Species Pending Organism 04/24/18 20:00 Blood - Peripheral Venous Blood Culture - Preliminary Pseudomonas Species 04/24/18 20:00 Blood - Peripheral Venous Blood Culture - Preliminary NO GROWTH OBTAINED AFTER 48 HOURS, INCUBATION TO CONTINUE FOR 3 DAYS. 04/24/18 20:16 Urine - Urine - Catheterized Urine Culture - Final -IV abx -ID on board -afebrile overnight -repeat [place] normal Code(s): A41.9 - SEPSIS, UNSPECIFIED ORGANISM (2) Chronic respiratory failure Assessment/Plan: -mechanical vent -Pulmonary on board -Bronchodilators -not a candidate for weaning at this time Code(s): J96.10 - CHRONIC RESPIRATORY FAILURE, UNSP W HYPOXIA OR HYPERCAPNIA Qualifiers: Respiratory failure complication: hypoxia Qualified Code(s): J96.11 - Chronic respiratory failure with hypoxia (3) Pressure ulcer Assessment/Plan: -multiple wounds -2/2 to poor nutritional status -offloading -prosource bid -Cultures: Microbiology 04/24/18 20:35 Elbow - Right Gram Stain - Final 04/24/18 20:35 Elbow - Right Wound Culture - Preliminary Escherichia Coli Esbl Reception Lactose Fermenting Neg Bacilli#2 Mr S Aureus Group D Strep Or Entero Coccus Streptococcus Species Pending Organism 04/24/18 20:00 Blood - Peripheral Venous Blood Culture - Preliminary Pseudomonas Species 04/24/18 20:00 Blood - Peripheral Venous Blood Culture - Preliminary NO GROWTH OBTAINED AFTER 48 HOURS, INCUBATION TO CONTINUE FOR 3 DAYS. 04/24/18 20:16 Urine - Urine - Catheterized Urine Culture - Final Code(s): L89.90 - PRESSURE ULCER OF UNSPECIFIED SITE, UNSPECIFIED STAGE (4) UTI (lower urinary tract infection) Assessment/Plan: -ID on baord -IV abx -afebrile -UC: 04/24/18 20:16 Urine - Urine - Catheterized Urine Culture - Final Code(s): N39.0 - URINARY TRACT INFECTION, SITE NOT SPECIFIED (5) Ventilator dependent Code(s): Z99.11 - DEPENDENCE ON RESPIRATOR [VENTILATOR] STATUS (6) Anemia Assessment/Plan: -chronic -check iron, thyroid profile, B 12, folate, stool OB -transfuse if Hg <7.0 to avoid fluid overload Code(s): D64.9 - ANEMIA, UNSPECIFIED Assessment/Plan see problem list
--- NOTE | 2018-04-27 14:08 | PN ---
Progress Note, Physician History of Present Illness: no specific changes still lethargic all cx reports are back - Current Medication List Current Medications: Active Medications Albuterol/Ipratropium (Duoneb -) 1 amp NEB RQID [facility] Last Admin: 04/27/18 12:37 Dose: 1 amp Amino Acids (Prosource No Carb Liquid Pkt) 30 ml PO BID@0800,1730 [facility] Last Admin: 04/27/18 10:59 Dose: 30 ml Ascorbic Acid (Vitamin C -) 500 mg GT DAILY [facility] Last Admin: 04/27/18 10:59 Dose: 500 mg Carbidopa/Levodopa (Sinemet 25/100 -) 1 each GT BID [facility] Last Admin: 04/27/18 10:59 Dose: 1 each Donepezil HCl (Aricept -) 10 mg GT HS [facility] Last Admin: 04/25/18 22:37 Dose: 10 mg Furosemide (Lasix -) 40 mg GT BID@0600,1400 [facility] Last Admin: 04/27/18 06:30 Dose: 40 mg Piperacillin Sod/Tazobactam (Sod 3.375 gm/ Dextrose) 50 mls @ 100 mls/hr IVPB Q8H-IV [facility]; Protocol Last Admin: 04/27/18 10:59 Dose: 100 mls/hr Vancomycin HCl 1,250 mg/ (Dextrose) 250 mls @ 166.667 mls/hr IVPB Q24H [facility]; Protocol Last Admin: 04/26/18 16:21 Dose: 166.667 mls/hr Multivitamins/Minerals/Vitamin C (Tab-A-Vit -) 1 tab PO DAILY [facility] Last Admin: 04/27/18 10:59 Dose: 1 tab Oxycodone HCl (Roxicodone -) 5 mg GT Q6HPO [facility] Last Admin: 04/27/18 12:32 Dose: 5 mg Ranitidine HCl (Zantac Oral Solution -) 150 mg GT DAILY [facility] Last Admin: 04/27/18 10:59 Dose: 150 mg Zinc Sulfate (Orazinc -) 220 mg PO DAILY [facility] Last Admin: 04/27/18 10:59 Dose: 220 mg - Objective Vital Signs: Vital Signs Temperature 98.8 F 04/27/18 10:30 Pulse Rate 94 H 04/27/18 10:30 Respiratory Rate 12 04/27/18 10:45 Blood Pressure 132/61 1023/18 10:30 O2 Sat by Pulse Oximetry (%) 97 04/27/18 06:48 Constitutional: Yes: Other Cardiovascular: Yes: S1, S2 Respiratory: Yes: Mechanically Ventilated, Other (tracheostomy) Gastrointestinal: Yes: Normal Bowel Sounds, Soft Musculoskeletal: Yes: Other Extremities: Yes: Other Wound/Incision: Yes: Dressing Dry and Intact, Dressing Removed, Other Neurological: Yes: Other Psychiatric: Yes: Other Labs: CBC, BMP 04/26/18 06:30 04/26/18 06:30 INR, PTT INR 1.82 (0.83-1.09) H 04/26/18 06:30 Assessment/Plan Problem List - Problems (1) A-fib Code(s): I48.91 - UNSPECIFIED ATRIAL FIBRILLATION Qualifiers: Atrial fibrillation type: chronic Qualified Code(s): I48.2 - Chronic atrial fibrillation (2) CHF (congestive heart failure) Code(s): I50.9 - HEART FAILURE, UNSPECIFIED (3) Chronic atrial fibrillation Code(s): I48.2 - CHRONIC ATRIAL FIBRILLATION (4) Chronic osteomyelitis Code(s): M86.60 - OTHER CHRONIC OSTEOMYELITIS, UNSPECIFIED SITE (5) Chronic respiratory failure Code(s): J96.10 - CHRONIC RESPIRATORY FAILURE, UNSP W HYPOXIA OR HYPERCAPNIA Qualifiers: Respiratory failure complication: hypoxia Qualified Code(s): J96.11 - Chronic respiratory failure with hypoxia (6) Dementia Code(s): F03.90 - UNSPECIFIED DEMENTIA WITHOUT BEHAVIORAL DISTURBANCE Qualifiers: Dementia type: Parkinson's disease Dementia behavioral disturbance: with behavioral disturbance Qualified Code(s): G20 - Parkinson's disease (7) Hyperlipemia Code(s): E78.5 - HYPERLIPIDEMIA, UNSPECIFIED (8) PEG (percutaneous endoscopic gastrostomy) adjustment/replacement/removal Code(s): Z43.1 - ENCOUNTER FOR ATTENTION TO GASTROSTOMY (9) Parkinson disease Code(s): G20 - PARKINSON'S DISEASE (10) Pleural effusion Code(s): J90 - PLEURAL EFFUSION, NOT ELSEWHERE CLASSIFIED (11) Sacral decubitus ulcer Code(s): L89.159 - PRESSURE ULCER OF SACRAL REGION, UNSPECIFIED STAGE Qualifiers: Qualified Code(s): L89.153 - Pressure ulcer of sacral region, stage 3 (12) Ventilator dependent Code(s): Z99.11 - DEPENDENCE ON RESPIRATOR [VENTILATOR] STATUS (13) Sepsis Code(s): A41.9 - SEPSIS, UNSPECIFIED ORGANISM (14) Sepsis Code(s): A41.9 - SEPSIS, UNSPECIFIED ORGANISM (15) Lactate blood increase Code(s): R79.89 - OTHER SPECIFIED ABNORMAL FINDINGS OF BLOOD CHEMISTRY 16 gm negative bacteremia 17 wound infection plan 1 follow wbc 2 wound care--elbow wound and sacral wound 3 repeat blood cx ordered 4 continue abx 5 vanco trough 6.nutrition rest as per the team
[2018-04-27] MEDS: VANCOMYCIN 1,250 MG in DEXTROSE 5%-WATER - 250 ML IVPB SCH (15:05)
[2018-04-27] MEDS: DONEPEZIL HCL 10 MG TABLET (FP) GT SCH (21:21)
[2018-04-28] MEDS ORDERED: DEXTROSE 5%-WATER - 50 ML IVPB ONE ×2 (00:55→11:00)
[2018-04-28] MEDS ORDERED: PIPERACILLIN/TAZOBACTAM 3.375 GM VIAL IVPB ONE ×2 (00:55→11:00)
[2018-04-28] MEDS: PIPERACILLIN/TAZOB 3.375 GM 3.375 GM in DEXTROSE 5%-WATER - 50 ML IVPB SCH ×2 (02:01→13:20)
[2018-04-28] MEDS: oxyCODONE HCL 5 MG TABLET GT SCH ×3 (06:29→12:20)
[2018-04-28] MEDS: FUROSEMIDE 40 MG TABLET (FP) GT SCH ×3 (06:29→14:46)
[2018-04-28 08:04] LABS: BASO % 0.6 % (0-2.0); EOS % 1.9 % (0-4.5); HEMATOCRIT 31.2 % (35.4-49); HEMOGLOBIN 9.2 GM/dL (11.7-16.9); LYMPH % 9.9 % (8-40); MCH 23.6 pg (25.7-33.7); MCHC 29.5 g/dl (32.0-35.9); MEAN PLT VOLUME 8.3 fl (7.5-11.1); MONO % 13.2 % (3.8-10.2); NEUT % 74.4 % (42.8-82.8); PLATELET COUNT 435 K/MM3 (134-434); RBC 3.89 M/mm3 (4.00-5.60); RDW 19.3 % (11.9-15.9); WHITE BLOOD COUNT 15.3 K/mm3 (4.0-10.0)
[2018-04-28] MEDS: ALBUTEROL SO4 2.5/IPRATROPIUM 0.5 INH SOL 3 ML VIAL.NEB. NEB SCH ×4 (08:20→20:45)
[2018-04-28] MEDS: AMINO ACIDS/PROTEIN HYDROLYS 30 ML LIQUID.PKT PO SCH ×2 (08:50→17:59)
[2018-04-28 09:08] LABS: ALBUMIN 1.2 g/dl (3.4-5.0); ALK PHOS 156 U/L (45-117); ANION GAP 8 MMOL/L (8-16); BILIRUBIN,TOTAL 0.3 mg/dL (0.2-1); BLOOD UREA NITROGEN 49 mg/dL (7-18); CHLORIDE 113 mmol/L (98-107); CO2 30 mmol/L (21-32); CREATININE 0.9 mg/dL (0.55-1.3); GLUCOSE,RANDOM 134 mg/dL (74-106); SGOT/AST 36 U/L (15-37); SGPT/ALT 20 U/L (13-61); SODIUM 150 mmol/L (136-145); TOT PROT 6.3 g/dl (6.4-8.2)
[2018-04-28 09:13] LABS: POTASSIUM 2.8 mmol/L (3.5-5.1)
[2018-04-28] MEDS: KCL 10 MEQ IVPB 10 MEQ/100 ML INFUS.BAG IVPB SCH ×3 (10:00→13:25)
[2018-04-28] MEDS: ASCORBIC ACID 500 MG TABLET (FP) GT SCH (11:03)
[2018-04-28] MEDS: CARBIDOPA/LEVODOPA 25/100 TABLET (FP) GT SCH ×2 (11:03→22:33)
[2018-04-28] MEDS: RANITIDINE HCL 150 MG/10 ML UNIT-DOSE GT SCH (11:03)
[2018-04-28] MEDS: ZINC SULFATE 220 MG CAPSULE (FP) PO SCH (11:03)
[2018-04-28] MEDS: MULTIVITAMINS (DAILY MVI) TABLET (FP) PO SCH (11:03)
--- NOTE | 2018-04-28 13:09 | PN ---
Progress Note, Physician History of Present Illness: pulmonary no change on vent support,poorly responsive - Current Medication List Current Medications: Active Medications Albuterol/Ipratropium (Duoneb -) 1 amp NEB RQID [facility] Last Admin: 04/28/18 12:32 Dose: 1 amp Amino Acids (Prosource No Carb Liquid Pkt) 30 ml PO BID@0800,1730 [facility] Last Admin: 04/28/18 08:50 Dose: 30 ml Ascorbic Acid (Vitamin C -) 500 mg GT DAILY [facility] Last Admin: 04/28/18 11:03 Dose: 500 mg Carbidopa/Levodopa (Sinemet 25/100 -) 1 each GT BID [facility] Last Admin: 04/28/18 11:03 Dose: 1 each Collagenase (Santyl -) 1 applic TP DAILY [facility]; Protocol Donepezil HCl (Aricept -) 10 mg GT HS [facility] Last Admin: 04/27/18 21:21 Dose: 10 mg Furosemide (Lasix -) 40 mg GT BID@0600,1400 [facility] Last Admin: 04/28/18 07:29 Dose: 40 mg Piperacillin Sod/Tazobactam (Sod 3.375 gm/ Dextrose) 50 mls @ 100 mls/hr IVPB Q8H-IV [facility]; Protocol Last Admin: 04/28/18 02:01 Dose: 100 mls/hr Vancomycin HCl 1,250 mg/ (Dextrose) 250 mls @ 166.667 mls/hr IVPB Q24H [facility]; Protocol Last Admin: 04/27/18 15:05 Dose: 166.667 mls/hr Multivitamins/Minerals/Vitamin C (Tab-A-Vit -) 1 tab PO DAILY [facility] Last Admin: 04/28/18 11:03 Dose: 1 tab Oxycodone HCl (Roxicodone -) 5 mg GT Q6HPO [facility] Last Admin: 04/28/18 12:20 Dose: 5 mg Ranitidine HCl (Zantac Oral Solution -) 150 mg GT DAILY [facility] Last Admin: 04/28/18 11:03 Dose: 150 mg Sodium Hypochlorite (Dakin's Solution 0.25% (Half-Strength) -) 1 applic TP DAILY [facility] Zinc Sulfate (Orazinc -) 220 mg PO DAILY [facility] Last Admin: 04/28/18 11:03 Dose: 220 mg - Objective Vital Signs: Vital Signs Temperature 98.9 F 10/24/18 06:00 Pulse Rate 84 04/28/18 06:05 Respiratory Rate 14 04/28/18 12:35 Blood Pressure 111/57 L 04/28/18 06:00 O2 Sat by Pulse Oximetry (%) 98 04/28/18 09:25 Constitutional: Yes: Calm, Obese, Other (poorly responsive) Eyes: Yes: WNL HENT: Yes: WNL Neck: Yes: Supple (trach) Cardiovascular: Yes: Pulse Irregular, S1, S2 Respiratory: Yes: Rhonchi (few scattered rhonchi) Gastrointestinal: Yes: Normal Bowel Sounds, Soft Extremities: Yes: WNL Edema: Yes Labs: CBC, BMP 04/28/18 06:50 04/28/18 06:50 INR, PTT INR 1.82 (0.83-1.09) H 04/26/18 06:30 Problem List - Problems (1) A-fib Code(s): I48.91 - UNSPECIFIED ATRIAL FIBRILLATION Qualifiers: Atrial fibrillation type: chronic Qualified Code(s): I48.2 - Chronic atrial fibrillation (2) CHF (congestive heart failure) Code(s): I50.9 - HEART FAILURE, UNSPECIFIED (3) Chronic atrial fibrillation Code(s): I48.2 - CHRONIC ATRIAL FIBRILLATION (4) Chronic osteomyelitis Code(s): M86.60 - OTHER CHRONIC OSTEOMYELITIS, UNSPECIFIED SITE (5) Chronic respiratory failure Code(s): J96.10 - CHRONIC RESPIRATORY FAILURE, UNSP W HYPOXIA OR HYPERCAPNIA Qualifiers: Respiratory failure complication: hypoxia Qualified Code(s): J96.11 - Chronic respiratory failure with hypoxia (6) Dementia Code(s): F03.90 - UNSPECIFIED DEMENTIA WITHOUT BEHAVIORAL DISTURBANCE Qualifiers: Dementia type: Parkinson's disease Dementia behavioral disturbance: with behavioral disturbance Qualified Code(s): G20 - Parkinson's disease (7) Hyperlipemia Code(s): E78.5 - HYPERLIPIDEMIA, UNSPECIFIED (8) PEG (percutaneous endoscopic gastrostomy) adjustment/replacement/removal Code(s): Z43.1 - ENCOUNTER FOR ATTENTION TO GASTROSTOMY (9) Parkinson disease Code(s): G20 - PARKINSON'S DISEASE (10) Pleural effusion Code(s): J90 - PLEURAL EFFUSION, NOT ELSEWHERE CLASSIFIED (11) Sacral decubitus ulcer Code(s): L89.159 - PRESSURE ULCER OF SACRAL REGION, UNSPECIFIED STAGE Qualifiers: Qualified Code(s): L89.153 - Pressure ulcer of sacral region, stage 3 (12) Ventilator dependent Code(s): Z99.11 - DEPENDENCE ON RESPIRATOR [VENTILATOR] STATUS (13) Sepsis Code(s): A41.9 - SEPSIS, UNSPECIFIED ORGANISM (14) Sepsis Code(s): A41.9 - SEPSIS, UNSPECIFIED ORGANISM Qualifiers: Sepsis type: sepsis due to unspecified organism Qualified Code(s): A41.9 - Sepsis, unspecified organism (15) Lactate blood increase Code(s): R79.89 - OTHER SPECIFIED ABNORMAL FINDINGS OF BLOOD CHEMISTRY Assessment/Plan IMP CHRONIC RESPIRATORY FAILURE SEPSIS INFECTED DECUBITI CHF AFIB ELEVATED LACTATE LEVEL CORRECTED H/O CVA H/O PARKINSONS PLAN IV ABX PER ID VENT SUPPORT ON AC MODE INHALED BRONCHODILATORS AC DIURETICS F/U CHEST X-RAYS DR [place] Problem List - Problems (1) A-fib Code(s): I48.91 - UNSPECIFIED ATRIAL FIBRILLATION Qualifiers: Atrial fibrillation type: chronic Qualified Code(s): I48.2 - Chronic atrial fibrillation (2) CHF (congestive heart failure) Code(s): I50.9 - HEART FAILURE, UNSPECIFIED (3) Chronic atrial fibrillation Code(s): I48.2 - CHRONIC ATRIAL FIBRILLATION (4) Chronic osteomyelitis Code(s): M86.60 - OTHER CHRONIC OSTEOMYELITIS, UNSPECIFIED SITE (5) Chronic respiratory failure Code(s): J96.10 - CHRONIC RESPIRATORY FAILURE, UNSP W HYPOXIA OR HYPERCAPNIA Qualifiers: Respiratory failure complication: hypoxia Qualified Code(s): J96.11 - Chronic respiratory failure with hypoxia (6) Dementia Code(s): F03.90 - UNSPECIFIED DEMENTIA WITHOUT BEHAVIORAL DISTURBANCE Qualifiers: Dementia type: Parkinson's disease Dementia behavioral disturbance: with behavioral disturbance Qualified Code(s): G20 - Parkinson's disease (7) Hyperlipemia Code(s): E78.5 - HYPERLIPIDEMIA, UNSPECIFIED (8) PEG (percutaneous endoscopic gastrostomy) adjustment/replacement/removal Code(s): Z43.1 - ENCOUNTER FOR ATTENTION TO GASTROSTOMY (9) Parkinson disease Code(s): G20 - PARKINSON'S DISEASE (10) Pleural effusion Code(s): J90 - PLEURAL EFFUSION, NOT ELSEWHERE CLASSIFIED (11) Sacral decubitus ulcer Code(s): L89.159 - PRESSURE ULCER OF SACRAL REGION, UNSPECIFIED STAGE Qualifiers: Qualified Code(s): L89.153 - Pressure ulcer of sacral region, stage 3 (12) Ventilator dependent Code(s): Z99.11 - DEPENDENCE ON RESPIRATOR [VENTILATOR] STATUS (13) Sepsis Code(s): A41.9 - SEPSIS, UNSPECIFIED ORGANISM (14) Sepsis Code(s): A41.9 - SEPSIS, UNSPECIFIED ORGANISM (15) Lactate blood increase Code(s): R79.89 - OTHER SPECIFIED ABNORMAL FINDINGS OF BLOOD CHEMISTRY
[2018-04-28] MEDS: SODIUM HYPOCHLORITE 0.25%- 473 ML BULK BOTTLE TP SCH (13:21)
[2018-04-28] MEDS: COLLAGENASE CLOSTRIDIUM HIST. 30 GRAMS TUBE TP SCH (13:21)
--- NOTE | 2018-04-28 13:42 | PN ---
Progress Note, Physician History of Present Illness: patient stable no new events no fever vented lethargic still one organism pending - Current Medication List Current Medications: Active Medications Albuterol/Ipratropium (Duoneb -) 1 amp NEB RQID [facility] Last Admin: 04/28/18 12:32 Dose: 1 amp Amino Acids (Prosource No Carb Liquid Pkt) 30 ml PO BID@0800,1730 [facility] Last Admin: 04/28/18 08:50 Dose: 30 ml Ascorbic Acid (Vitamin C -) 500 mg GT DAILY [facility] Last Admin: 04/28/18 11:03 Dose: 500 mg Carbidopa/Levodopa (Sinemet 25/100 -) 1 each GT BID [facility] Last Admin: 04/28/18 11:03 Dose: 1 each Collagenase (Santyl -) 1 applic TP DAILY [facility]; Protocol Last Admin: 04/28/18 13:21 Dose: 1 applic Donepezil HCl (Aricept -) 10 mg GT HS [facility] Last Admin: 04/27/18 21:21 Dose: 10 mg Furosemide (Lasix -) 40 mg GT BID@0600,1400 [facility] Last Admin: 04/28/18 07:29 Dose: 40 mg Piperacillin Sod/Tazobactam (Sod 3.375 gm/ Dextrose) 50 mls @ 100 mls/hr IVPB Q8H-IV [facility]; Protocol Last Admin: 04/28/18 13:20 Dose: 100 mls/hr Vancomycin HCl 1,250 mg/ (Dextrose) 250 mls @ 166.667 mls/hr IVPB Q24H [facility]; Protocol Last Admin: 04/27/18 15:05 Dose: 166.667 mls/hr Multivitamins/Minerals/Vitamin C (Tab-A-Vit -) 1 tab PO DAILY [facility] Last Admin: 04/28/18 11:03 Dose: 1 tab Oxycodone HCl (Roxicodone -) 5 mg GT Q6HPO [facility] Last Admin: 04/28/18 12:20 Dose: 5 mg Ranitidine HCl (Zantac Oral Solution -) 150 mg GT DAILY [facility] Last Admin: 04/28/18 11:03 Dose: 150 mg Sodium Hypochlorite (Dakin's Solution 0.25% (Half-Strength) -) 1 applic TP DAILY [facility] Last Admin: 04/28/18 13:21 Dose: 1 applic Zinc Sulfate (Orazinc -) 220 mg PO DAILY [facility] Last Admin: 04/28/18 11:03 Dose: 220 mg - Objective Vital Signs: Vital Signs Temperature 98.9 F 04/28/18 06:00 Pulse Rate 84 04/28/18 06:05 Respiratory Rate 14 04/28/18 12:35 Blood Pressure 111/57 L 04/28/18 06:00 O2 Sat by Pulse Oximetry (%) 98 04/28/18 09:25 Constitutional: Yes: No Distress, Other Cardiovascular: Yes: Regular Rate and Rhythm Respiratory: Yes: Mechanically Ventilated, Other (trached) Gastrointestinal: Yes: Normal Bowel Sounds, Soft Musculoskeletal: Yes: WNL Extremities: Yes: Other Wound/Incision: Yes: Other (slough multiple decubitus wounds) Neurological: Yes: Other Labs: CBC, BMP 04/28/18 06:50 04/28/18 06:50 INR, PTT INR 1.82 (0.83-1.09) H 04/26/18 06:30 Assessment/Plan Problem List - Problems (1) A-fib Code(s): I48.91 - UNSPECIFIED ATRIAL FIBRILLATION Qualifiers: Atrial fibrillation type: chronic Qualified Code(s): I48.2 - Chronic atrial fibrillation (2) CHF (congestive heart failure) Code(s): I50.9 - HEART FAILURE, UNSPECIFIED (3) Chronic atrial fibrillation Code(s): I48.2 - CHRONIC ATRIAL FIBRILLATION (4) Chronic osteomyelitis Code(s): M86.60 - OTHER CHRONIC OSTEOMYELITIS, UNSPECIFIED SITE (5) Chronic respiratory failure Code(s): J96.10 - CHRONIC RESPIRATORY FAILURE, UNSP W HYPOXIA OR HYPERCAPNIA Qualifiers: Respiratory failure complication: hypoxia Qualified Code(s): J96.11 - Chronic respiratory failure with hypoxia (6) Dementia Code(s): F03.90 - UNSPECIFIED DEMENTIA WITHOUT BEHAVIORAL DISTURBANCE Qualifiers: Dementia type: Parkinson's disease Dementia behavioral disturbance: with behavioral disturbance Qualified Code(s): G20 - Parkinson's disease (7) Hyperlipemia Code(s): E78.5 - HYPERLIPIDEMIA, UNSPECIFIED (8) PEG (percutaneous endoscopic gastrostomy) adjustment/replacement/removal Code(s): Z43.1 - ENCOUNTER FOR ATTENTION TO GASTROSTOMY (9) Parkinson disease Code(s): G20 - PARKINSON'S DISEASE (10) Pleural effusion Code(s): J90 - PLEURAL EFFUSION, NOT ELSEWHERE CLASSIFIED (11) Sacral decubitus ulcer Code(s): L89.159 - PRESSURE ULCER OF SACRAL REGION, UNSPECIFIED STAGE Qualifiers: Qualified Code(s): L89.153 - Pressure ulcer of sacral region, stage 3 (12) Ventilator dependent Code(s): Z99.11 - DEPENDENCE ON RESPIRATOR [VENTILATOR] STATUS (13) Sepsis Code(s): A41.9 - SEPSIS, UNSPECIFIED ORGANISM (14) Sepsis Code(s): A41.9 - SEPSIS, UNSPECIFIED ORGANISM (15) Lactate blood increase Code(s): R79.89 - OTHER SPECIFIED ABNORMAL FINDINGS OF BLOOD CHEMISTRY 16 gm negative bacteremia 17 wound infection the patient has multiple organisms growing out of the wound i am going to give abx inspite of abx patient is not going to get cured as the wound needs to be debrided and cleaned it seems family wants to treat for everything plan will add meropenam as patients wound is esbl news producer to current regimen again as i mentioned without debridement there is not going to be any change depends on what family wants once we know the final wishes then we will proceed with plan
[2018-04-28] MEDS: CEFTAZIDIME PENTAHYDRATE 1 GM in DEXTROSE 5%-WATER - 50 ML IVPB SCH (17:15)
[2018-04-28] MEDS: MEROPENEM 1 GM in DEXTROSE 5%-WATER 100 ML IVPB SCH (17:45)
[2018-04-28] MEDS: VANCOMYCIN 1,250 MG in DEXTROSE 5%-WATER - 250 ML IVPB SCH (17:59)
[2018-04-28] MEDS ORDERED: cefTAZidime PENTAHYDRATE 1 GM/50ML PRE-DOCKED (RESTRICTED TO ID) IVPB SCH (18:00)
--- NOTE | 2018-04-28 18:22 | PN ---
Progress Note, Physician Chief Complaint: sepsis History of Present Illness: NAD on mechanical vent Seen by ID On IV abx Cultures: Microbiology 04/24/18 20:35 Elbow - Right Gram Stain - Final 04/24/18 20:35 Elbow - Right Wound Culture - Final Escherichia Coli Esbl Outpatient Pharmacy Manager Acinetobacter Baumannii/Haemol Mr S Aureus Enterococcus Faecalis Enterococcus Raffinosus Pending Organism 04/24/18 20:00 Blood - Peripheral Venous Blood Culture - Final Pseudomonas Aeruginosa 04/24/18 20:00 Blood - Peripheral Venous Blood Culture - Preliminary NO GROWTH OBTAINED AFTER 72 HOURS, INCUBATION TO CONTINUE FOR 2 DAYS. 04/24/18 20:16 Urine - Urine - Catheterized Urine Culture - Final Afebrile overnight Already evaluated by Vascular surgery- no recommendation for surgical debridement of pressure ulcers at this time - Current Medication List Current Medications: Active Medications Albuterol/Ipratropium (Duoneb -) 1 amp NEB RQID [facility] Last Admin: 04/28/18 16:16 Dose: 1 amp Amino Acids (Prosource No Carb Liquid Pkt) 30 ml PO BID@0800,1730 [facility] Last Admin: 04/28/18 17:59 Dose: 30 ml Ascorbic Acid (Vitamin C -) 500 mg GT DAILY [facility] Last Admin: 04/28/18 11:03 Dose: 500 mg Carbidopa/Levodopa (Sinemet 25/100 -) 1 each GT BID [facility] Last Admin: 04/28/18 11:03 Dose: 1 each Collagenase (Santyl -) 1 applic TP DAILY [facility]; Protocol Last Admin: 04/28/18 13:21 Dose: 1 applic Donepezil HCl (Aricept -) 10 mg GT HS [facility] Last Admin: 04/27/18 21:21 Dose: 10 mg Furosemide (Lasix -) 40 mg GT BID@0600,1400 [facility] Last Admin: 04/28/18 14:46 Dose: 40 mg Vancomycin HCl 1,250 mg/ (Dextrose) 250 mls @ 166.667 mls/hr IVPB Q24H [facility]; Protocol Last Admin: 04/28/18 17:59 Dose: 166.667 mls/hr Meropenem 1 gm/ Dextrose 100 mls @ 200 mls/hr IVPB Q8H-IV [facility] Last Admin: 04/28/18 17:45 Dose: 200 mls/hr Ceftazidime 1 gm/ Dextrose 50 mls @ 100 mls/hr IVPB Q8H-IV [facility] Last Admin: 04/28/18 17:15 Dose: 100 mls/hr Multivitamins/Minerals/Vitamin C (Tab-A-Vit -) 1 tab PO DAILY [facility] Last Admin: 04/28/18 11:03 Dose: 1 tab Oxycodone HCl (Roxicodone -) 5 mg GT Q6H PRN PRN Reason: PAIN LEVEL 6-10 Ranitidine HCl (Zantac Oral Solution -) 150 mg GT DAILY [facility] Last Admin: 04/28/18 11:03 Dose: 150 mg Sodium Hypochlorite (Dakin's Solution 0.25% (Half-Strength) -) 1 applic TP DAILY [facility] Last Admin: 04/28/18 13:21 Dose: 1 applic Zinc Sulfate (Orazinc -) 220 mg PO DAILY [facility] Last Admin: 04/28/18 11:03 Dose: 220 mg - Objective Vital Signs: Vital Signs Temperature 98.5 F 04/28/18 14:18 Pulse Rate 93 H 04/28/18 14:18 Respiratory Rate 18 04/28/18 16:21 Blood Pressure 109/64 04/28/18 14:18 O2 Sat by Pulse Oximetry (%) 98 04/28/18 09:25 Constitutional: Yes: Well Nourished, No Distress, Calm Cardiovascular: Yes: Regular Rate and Rhythm Respiratory: Yes: Mechanically Ventilated Musculoskeletal: Yes: WNL Extremities: Yes: WNL Edema: Yes (BLUE) Peripheral Pulses WNL: Yes Wound/Incision: Yes: Dressing Dry and Intact Neurological: Yes: Pre-Existing Deficit Labs: CBC, BMP 04/28/18 06:50 04/28/18 06:50 INR, PTT INR 1.82 (0.83-1.09) H 04/26/18 06:30 Problem List - Problems (1) Sepsis Assessment/Plan: culture: Microbiology 04/24/18 20:35 Elbow - Right Gram Stain - Final 04/24/18 20:35 Elbow - Right Wound Culture - Final Escherichia Coli Esbl Outpatient Pharmacy Manager Acinetobacter Baumannii/Haemol Mr S Aureus Enterococcus Faecalis Enterococcus Raffinosus Pending Organism 04/24/18 20:00 Blood - Peripheral Venous Blood Culture - Final Pseudomonas Aeruginosa 04/24/18 20:00 Blood - Peripheral Venous Blood Culture - Preliminary NO GROWTH OBTAINED AFTER 72 HOURS, INCUBATION TO CONTINUE FOR 2 DAYS. 04/24/18 20:16 Urine - Urine - Catheterized Urine Culture - Final -IV abx -ID on board -afebrile overnight -repeat LA normal -WBC trending down Code(s): A41.9 - SEPSIS, UNSPECIFIED ORGANISM (2) Chronic respiratory failure Assessment/Plan: -mechanical vent -Pulmonary on board -Bronchodilators -not a candidate for weaning at this time Code(s): J96.10 - CHRONIC RESPIRATORY FAILURE, UNSP W HYPOXIA OR HYPERCAPNIA Qualifiers: Respiratory failure complication: hypoxia Qualified Code(s): J96.11 - Chronic respiratory failure with hypoxia (3) Pressure ulcer Assessment/Plan: -multiple wounds -2/2 to poor nutritional status -offloading -Santyl -Seen by Vascular surgery,no recommendation for surgical debridement of pressure ulcers at this time -prosource bid -Cultures: Microbiology 04/24/18 20:35 Elbow - Right Gram Stain - Final 04/24/18 20:35 Elbow - Right Wound Culture - Final Escherichia Coli Esbl Outpatient Pharmacy Manager Acinetobacter Baumannii/Haemol Mr S Aureus Enterococcus Faecalis Enterococcus Raffinosus Pending Organism 04/24/18 20:00 Blood - Peripheral Venous Blood Culture - Final Pseudomonas Aeruginosa 04/24/18 20:00 Blood - Peripheral Venous Blood Culture - Preliminary NO GROWTH OBTAINED AFTER 72 HOURS, INCUBATION TO CONTINUE FOR 2 DAYS. 04/24/18 20:16 Urine - Urine - Catheterized Urine Culture - Final Code(s): L89.90 - PRESSURE ULCER OF UNSPECIFIED SITE, UNSPECIFIED STAGE (4) UTI (lower urinary tract infection) Assessment/Plan: -ID on baord -IV abx -afebrile -UC: 04/24/18 20:16 Urine - Urine - Catheterized Urine Culture - Final Code(s): N39.0 - URINARY TRACT INFECTION, SITE NOT SPECIFIED (5) Ventilator dependent Code(s): Z99.11 - DEPENDENCE ON RESPIRATOR [VENTILATOR] STATUS (6) Anemia Assessment/Plan: -chronic -Iron profile pending -thyroid profile, B 12, folate unremarkable -stool OB negative -transfuse if Hg <7.0 to avoid fluid overload Code(s): D64.9 - ANEMIA, UNSPECIFIED Assessment/Plan see problem list Spoke to at bedside
[2018-04-28 21:09] LABS: INR 1.8 (0.83-1.09); PROTHROMBIN TIME (PATIENT) 21.4 SEC (9.7-13.0)
[2018-04-28 21:12] LABS: ACTIVATED PTT 33.9 SECONDS (25.2-36.5)
[2018-04-28] MEDS ORDERED: WARFARIN NA 3 MG TABLET PO ONE (22:30)
[2018-04-28] MEDS: DONEPEZIL HCL 10 MG TABLET (FP) GT SCH (22:33)
[2018-04-29] MEDS: MEROPENEM 1 GM in DEXTROSE 5%-WATER 100 ML IVPB SCH ×3 (02:14→17:25)
[2018-04-29] MEDS: CEFTAZIDIME PENTAHYDRATE 1 GM in DEXTROSE 5%-WATER - 50 ML IVPB SCH ×3 (02:14→18:42)
[2018-04-29] MEDS: oxyCODONE HCL 5 MG TABLET GT SCH (08:02)
[2018-04-29] MEDS: FUROSEMIDE 40 MG TABLET (FP) GT SCH ×3 (08:04→15:20)
[2018-04-29] MEDS: AMINO ACIDS/PROTEIN HYDROLYS 30 ML LIQUID.PKT PO SCH ×2 (08:04→16:30)
[2018-04-29] MEDS: ALBUTEROL SO4 2.5/IPRATROPIUM 0.5 INH SOL 3 ML VIAL.NEB. NEB SCH ×5 (08:06→21:45)
[2018-04-29] MEDS: DONEPEZIL HCL 10 MG TABLET (FP) GT SCH ×2 (08:07→21:34)
[2018-04-29 08:34] LABS: BASO % 0.3 % (0-2.0); EOS % 3.6 % (0-4.5); HEMATOCRIT 30.5 % (35.4-49); HEMOGLOBIN 8.8 GM/dL (11.7-16.9); MCH 23.1 pg (25.7-33.7); MEAN CELL VOLUME 79.4 fl (80-96); MEAN PLT VOLUME 8.4 fl (7.5-11.1); MONO % 11.8 % (3.8-10.2); NEUT % 65.3 % (42.8-82.8); PLATELET COUNT 391 K/MM3 (134-434); RBC 3.84 M/mm3 (4.00-5.60); WHITE BLOOD COUNT 13.8 K/mm3 (4.0-10.0)
[2018-04-29 08:45] LABS: INR 1.94 (0.83-1.09); PROTHROMBIN TIME (PATIENT) 23.1 SEC (9.7-13.0)
[2018-04-29] MEDS ORDERED: PT OWN MED DRAWER 7, Y5N ONE ×3 (09:04→16:53)
[2018-04-29] MEDS: ASCORBIC ACID 500 MG TABLET (FP) GT SCH (09:17)
[2018-04-29] MEDS: MULTIVITAMINS (DAILY MVI) TABLET (FP) PO SCH (09:17)
[2018-04-29] MEDS: ZINC SULFATE 220 MG CAPSULE (FP) PO SCH (09:17)
[2018-04-29] MEDS: CARBIDOPA/LEVODOPA 25/100 TABLET (FP) GT SCH ×2 (09:18→21:34)
[2018-04-29] MEDS: SODIUM HYPOCHLORITE 0.25%- 473 ML BULK BOTTLE TP SCH (09:18)
[2018-04-29] MEDS: RANITIDINE HCL 150 MG/10 ML UNIT-DOSE GT SCH (09:18)
[2018-04-29 09:37] LABS: ANION GAP 8 MMOL/L (8-16); BLOOD UREA NITROGEN 48 mg/dL (7-18); CHLORIDE 113 mmol/L (98-107); CO2 31 mmol/L (21-32); CREATININE 0.7 mg/dL (0.55-1.3); GLUCOSE,RANDOM 132 mg/dL (74-106); SODIUM 153 mmol/L (136-145)
[2018-04-29 10:07] LABS: POTASSIUM 2.9 mmol/L (3.5-5.1)
--- NOTE | 2018-04-29 11:33 | PN ---
Progress Note (short form) - Note Progress Note: PULMONARY Vented, unresponsive. No fevers recorded. Vital Signs Period Temp Pulse Resp BP Sys/Limon Pulse Ox Last 24 Hr 97.9 F-99.3 F 79-93 12-20 99-115/47-64 97-100 Gen: vented, unresponsive Heart: RRR Lung: scattered rhonchi Abd: soft, nontender Ext: + edema CBC, BMP 04/29/18 06:00 04/29/18 06:00 Active Medications Albuterol/Ipratropium (Duoneb -) 1 amp NEB RQID [facility] Last Admin: 04/29/18 11:29 Dose: 1 amp Amino Acids (Prosource No Carb Liquid Pkt) 30 ml PO BID@0800,1730 [facility] Last Admin: 04/29/18 08:04 Dose: 30 ml Ascorbic Acid (Vitamin C -) 500 mg GT DAILY [facility] Last Admin: 04/29/18 09:17 Dose: 500 mg Carbidopa/Levodopa (Sinemet 25/100 -) 1 each GT BID [facility] Last Admin: 04/29/18 09:18 Dose: 1 each Collagenase (Santyl -) 1 applic TP DAILY [facility]; Protocol Last Admin: 04/28/18 13:21 Dose: 1 applic Donepezil HCl (Aricept -) 10 mg GT HS [facility] Last Admin: 04/29/18 08:07 Dose: Not Given Furosemide (Lasix -) 40 mg GT BID@0600,1400 [facility] Last Admin: 04/29/18 08:07 Dose: Not Given Vancomycin HCl 1,250 mg/ (Dextrose) 250 mls @ 166.667 mls/hr IVPB Q24H [facility]; Protocol Last Admin: 04/28/18 17:59 Dose: 166.667 mls/hr Meropenem 1 gm/ Dextrose 100 mls @ 200 mls/hr IVPB Q8H-IV [facility] Last Admin: 04/29/18 09:17 Dose: 200 mls/hr Ceftazidime 1 gm/ Dextrose 50 mls @ 100 mls/hr IVPB Q8H-IV [facility] Last Admin: 04/29/18 02:14 Dose: 100 mls/hr Multivitamins/Minerals/Vitamin C (Tab-A-Vit -) 1 tab PO DAILY [facility] Last Admin: 04/29/18 09:17 Dose: 1 tab Oxycodone HCl (Roxicodone -) 5 mg GT Q6H PRN PRN Reason: PAIN LEVEL 6-10 Ranitidine HCl (Zantac Oral Solution -) 150 mg GT DAILY [facility] Last Admin: 04/29/18 09:18 Dose: 150 mg Sodium Hypochlorite (Dakin's Solution 0.25% (Half-Strength) -) 1 applic TP DAILY [facility] Last Admin: 04/29/18 09:18 Dose: 1 applic Zinc Sulfate (Orazinc -) 220 mg PO DAILY [facility] Last Admin: 04/29/18 09:17 Dose: 220 mg A/P Chronic Respiratory Failure Decubitus Ulcer Infection UTI Gram Negative Bacteremia Sepsis Lactic Acidosis LV Diastolic Dysfunction Atrial Fibrillation h/o CVA Parkinsons Dementia - continue antibiotics - f/u cultures - inhaled bronchodilators - continue volume assist control - poor candidate for weaning due to mental status - replete lytes - enteral feeds - DVT/GI prophylaxis
--- NOTE | 2018-04-29 12:12 | PN ---
Progress Note, Physician Chief Complaint: patient seen and examined got coumadin last night inr noted today - Current Medication List Current Medications: Active Medications Albuterol/Ipratropium (Duoneb -) 1 amp NEB RQID [facility] Last Admin: 04/29/18 11:29 Dose: 1 amp Amino Acids (Prosource No Carb Liquid Pkt) 30 ml PO BID@0800,1730 [facility] Last Admin: 04/29/18 08:04 Dose: 30 ml Ascorbic Acid (Vitamin C -) 500 mg GT DAILY [facility] Last Admin: 04/29/18 09:17 Dose: 500 mg Carbidopa/Levodopa (Sinemet 25/100 -) 1 each GT BID [facility] Last Admin: 04/29/18 09:18 Dose: 1 each Collagenase (Santyl -) 1 applic TP DAILY [facility]; Protocol Last Admin: 04/28/18 13:21 Dose: 1 applic Donepezil HCl (Aricept -) 10 mg GT HS [facility] Last Admin: 04/29/18 08:07 Dose: Not Given Furosemide (Lasix -) 40 mg GT BID@0600,1400 [facility] Last Admin: 04/29/18 08:07 Dose: Not Given Vancomycin HCl 1,250 mg/ (Dextrose) 250 mls @ 166.667 mls/hr IVPB Q24H [facility]; Protocol Last Admin: 04/28/18 17:59 Dose: 166.667 mls/hr Meropenem 1 gm/ Dextrose 100 mls @ 200 mls/hr IVPB Q8H-IV [facility] Last Admin: 04/29/18 09:17 Dose: 200 mls/hr Ceftazidime 1 gm/ Dextrose 50 mls @ 100 mls/hr IVPB Q8H-IV [facility] Last Admin: 04/29/18 11:37 Dose: 100 mls/hr Multivitamins/Minerals/Vitamin C (Tab-A-Vit -) 1 tab PO DAILY [facility] Last Admin: 04/29/18 09:17 Dose: 1 tab Oxycodone HCl (Roxicodone -) 5 mg GT Q6H PRN PRN Reason: PAIN LEVEL 6-10 Potassium Chloride (Potassium Chloride Oral Liquid) 40 meq PO ONCE ONE Stop: 04/29/18 12:03 Ranitidine HCl (Zantac Oral Solution -) 150 mg GT DAILY [facility] Last Admin: 04/29/18 09:18 Dose: 150 mg Sodium Hypochlorite (Dakin's Solution 0.25% (Half-Strength) -) 1 applic TP DAILY [facility] Last Admin: 04/29/18 09:18 Dose: 1 applic Warfarin Sodium (Coumadin -) 3 mg GT DAILY@1800 [facility] Zinc Sulfate (Orazinc -) 220 mg PO DAILY [facility] Last Admin: 04/29/18 09:17 Dose: 220 mg - Objective Vital Signs: Vital Signs Temperature 99.0 F 04/29/18 10:00 Pulse Rate 85 04/29/18 10:00 Respiratory Rate 15 04/29/18 10:14 Blood Pressure 99/57 L 04/29/18 10:00 O2 Sat by Pulse Oximetry (%) 98 04/29/18 10:00 Constitutional: Yes: Calm, Other (intubated unresponsive) Neck: Yes: Other (tracheostomy) Respiratory: Yes: Mechanically Ventilated Gastrointestinal: Yes: Normal Bowel Sounds, Soft, Other ( g tube) Edema: Yes Labs: CBC, BMP 04/29/18 06:00 04/29/18 06:00 INR, PTT INR 1.94 (0.83-1.09) H 04/29/18 07:30 Problem List - Problems (1) Sepsis Assessment/Plan: patient sent in for multiple ulcers and inc wbc count seen by vascular surgery not a candidate for debridement santyl and wet dressing frequent turn and position iv abx per ID Microbiology 04/24/18 20:35 Elbow - Right Gram Stain - Final 04/24/18 20:35 Elbow - Right Wound Culture - Final Escherichia Coli Esbl Business Solution Analyst Acinetobacter Baumannii/Haemol Mr S Aureus Enterococcus Faecalis Enterococcus Raffinosus Pending Organism ceftazidime and meropenem Code(s): A41.9 - SEPSIS, UNSPECIFIED ORGANISM (2) A-fib Assessment/Plan: on coumadin daily inr Code(s): I48.91 - UNSPECIFIED ATRIAL FIBRILLATION Qualifiers: Atrial fibrillation type: chronic Qualified Code(s): I48.2 - Chronic atrial fibrillation (3) Chronic respiratory failure Assessment/Plan: vent support assist control no candidate for weaning nebulizer Code(s): J96.10 - CHRONIC RESPIRATORY FAILURE, UNSP W HYPOXIA OR HYPERCAPNIA Qualifiers: Respiratory failure complication: hypoxia Qualified Code(s): J96.11 - Chronic respiratory failure with hypoxia (4) Dementia Assessment/Plan: sienemt and donezipil Code(s): F03.90 - UNSPECIFIED DEMENTIA WITHOUT BEHAVIORAL DISTURBANCE Qualifiers: Dementia type: Parkinson's disease Dementia behavioral disturbance: with behavioral disturbance Qualified Code(s): G20 - Parkinson's disease (5) Electrolyte abnormality Assessment/Plan: potassium repleted magnesium level ordered recheck potasium in evening Code(s): E87.8 - OTH DISORDERS OF ELECTROLYTE AND FLUID BALANCE, NEC
[2018-04-29] MEDS: COLLAGENASE CLOSTRIDIUM HIST. 30 GRAMS TUBE TP SCH (12:16)
[2018-04-29] MEDS ORDERED: POTASSIUM CHLORIDE ORAL LIQUID 20 MEQ/15 ML PO ONE (12:30)
[2018-04-29 12:33] LABS: MAGNESIUM 2.3 mg/dL (1.8-2.4)
[2018-04-29] MEDS: VANCOMYCIN 1,250 MG in DEXTROSE 5%-WATER - 250 ML IVPB SCH (12:46)
[2018-04-29] MEDS ORDERED: FLU VACCINE QUAD 60 MCG/0.5 ML (MDV 18-19) IM ONE (13:06)
--- NOTE | 2018-04-29 16:11 | PN ---
Progress Note, Physician History of Present Illness: no changes vented lethargic wound infections no change in mental status - Current Medication List Current Medications: Active Medications Albuterol/Ipratropium (Duoneb -) 1 amp NEB RQID [facility] Last Admin: 04/29/18 11:29 Dose: 1 amp Amino Acids (Prosource No Carb Liquid Pkt) 30 ml PO BID@0800,1730 [facility] Last Admin: 04/29/18 08:04 Dose: 30 ml Ascorbic Acid (Vitamin C -) 500 mg GT DAILY [facility] Last Admin: 04/29/18 09:17 Dose: 500 mg Carbidopa/Levodopa (Sinemet 25/100 -) 1 each GT BID [facility] Last Admin: 04/29/18 09:18 Dose: 1 each Collagenase (Santyl -) 1 applic TP DAILY [facility]; Protocol Last Admin: 04/29/18 12:16 Dose: 1 applic Donepezil HCl (Aricept -) 10 mg GT HS [facility] Last Admin: 04/29/18 08:07 Dose: Not Given Furosemide (Lasix -) 40 mg GT BID@0600,1400 [facility] Last Admin: 04/29/18 15:20 Dose: 40 mg Vancomycin HCl 1,250 mg/ (Dextrose) 250 mls @ 166.667 mls/hr IVPB Q24H [facility]; Protocol Last Admin: 04/29/18 12:46 Dose: 166.667 mls/hr Meropenem 1 gm/ Dextrose 100 mls @ 200 mls/hr IVPB Q8H-IV [facility] Last Admin: 04/29/18 09:17 Dose: 200 mls/hr Ceftazidime 1 gm/ Dextrose 50 mls @ 100 mls/hr IVPB Q8H-IV [facility] Last Admin: 04/29/18 11:37 Dose: 100 mls/hr Multivitamins/Minerals/Vitamin C (Tab-A-Vit -) 1 tab PO DAILY [facility] Last Admin: 04/29/18 09:17 Dose: 1 tab Oxycodone HCl (Roxicodone -) 5 mg GT Q6H PRN PRN Reason: PAIN LEVEL 6-10 Ranitidine HCl (Zantac Oral Solution -) 150 mg GT DAILY [facility] Last Admin: 04/29/18 09:18 Dose: 150 mg Sodium Hypochlorite (Dakin's Solution 0.25% (Half-Strength) -) 1 applic TP DAILY [facility] Last Admin: 04/29/18 09:18 Dose: 1 applic Warfarin Sodium (Coumadin -) 3 mg GT DAILY@1800 [facility] Zinc Sulfate (Orazinc -) 220 mg PO DAILY [facility] Last Admin: 04/29/18 09:17 Dose: 220 mg - Objective Vital Signs: Vital Signs Temperature 98.2 F 04/29/18 14:21 Pulse Rate 93 H 04/29/18 14:21 Respiratory Rate 18 04/29/18 14:21 Blood Pressure 104/60 04/29/18 14:21 O2 Sat by Pulse Oximetry (%) 98 04/29/18 10:00 Constitutional: Yes: Other Cardiovascular: Yes: Regular Rate and Rhythm Respiratory: Yes: Mechanically Ventilated, Other (trach) Gastrointestinal: Yes: Normal Bowel Sounds, Soft Musculoskeletal: Yes: WNL Extremities: Yes: Other Integumentary: Yes: Other (multiple wounds) Wound/Incision: Yes: Dressing Dry and Intact, Other (drainaing) Neurological: Yes: Other Labs: CBC, BMP 04/29/18 06:00 04/29/18 06:00 INR, PTT INR 1.94 (0.83-1.09) H 04/29/18 07:30 Assessment/Plan Assessment/Plan Problem List - Problems (1) A-fib Code(s): I48.91 - UNSPECIFIED ATRIAL FIBRILLATION Qualifiers: Atrial fibrillation type: chronic Qualified Code(s): I48.2 - Chronic atrial fibrillation (2) CHF (congestive heart failure) Code(s): I50.9 - HEART FAILURE, UNSPECIFIED (3) Chronic atrial fibrillation Code(s): I48.2 - CHRONIC ATRIAL FIBRILLATION (4) Chronic osteomyelitis Code(s): M86.60 - OTHER CHRONIC OSTEOMYELITIS, UNSPECIFIED SITE (5) Chronic respiratory failure Code(s): J96.10 - CHRONIC RESPIRATORY FAILURE, UNSP W HYPOXIA OR HYPERCAPNIA Qualifiers: Respiratory failure complication: hypoxia Qualified Code(s): J96.11 - Chronic respiratory failure with hypoxia (6) Dementia Code(s): F03.90 - UNSPECIFIED DEMENTIA WITHOUT BEHAVIORAL DISTURBANCE Qualifiers: Dementia type: Parkinson's disease Dementia behavioral disturbance: with behavioral disturbance Qualified Code(s): G20 - Parkinson's disease (7) Hyperlipemia Code(s): E78.5 - HYPERLIPIDEMIA, UNSPECIFIED (8) PEG (percutaneous endoscopic gastrostomy) adjustment/replacement/removal Code(s): Z43.1 - ENCOUNTER FOR ATTENTION TO GASTROSTOMY (9) Parkinson disease Code(s): G20 - PARKINSON'S DISEASE (10) Pleural effusion Code(s): J90 - PLEURAL EFFUSION, NOT ELSEWHERE CLASSIFIED (11) Sacral decubitus ulcer Code(s): L89.159 - PRESSURE ULCER OF SACRAL REGION, UNSPECIFIED STAGE Qualifiers: Qualified Code(s): L89.153 - Pressure ulcer of sacral region, stage 3 (12) Ventilator dependent Code(s): Z99.11 - DEPENDENCE ON RESPIRATOR [VENTILATOR] STATUS (13) Sepsis Code(s): A41.9 - SEPSIS, UNSPECIFIED ORGANISM (14) Sepsis Code(s): A41.9 - SEPSIS, UNSPECIFIED ORGANISM (15) Lactate blood increase Code(s): R79.89 - OTHER SPECIFIED ABNORMAL FINDINGS OF BLOOD CHEMISTRY 16 gm negative bacteremia 17 wound infection plan continue abx will have to make further plans wounds need debridement healing going to take long cx reports noted needs multiple abx
[2018-04-29] MEDS: WARFARIN NA 3 MG TABLET GT SCH (17:26)
[2018-04-29 17:37] LABS: ANION GAP 12 MMOL/L (8-16); BLOOD UREA NITROGEN 49 mg/dL (7-18); CHLORIDE 113 mmol/L (98-107); CO2 26 mmol/L (21-32); CREATININE 0.7 mg/dL (0.55-1.3); GLUCOSE,RANDOM 119 mg/dL (74-106); SODIUM 151 mmol/L (136-145)
[2018-04-29 17:40] LABS: SERUM IRON SATURATION 9 % (15-55); TOTAL IRON BINDING CAPACITY 128 ug/dL (250-450); UIBC 116 ug/dL (111-343)
[2018-04-29 17:47] LABS: CALCIUM 6.9 mg/dL (8.5-10.1)
[2018-04-30] MEDS ORDERED: PT OWN MED DRAWER 7, Y5N ONE ×3 (01:00→17:15)
[2018-04-30] MEDS: MEROPENEM 1 GM in DEXTROSE 5%-WATER 100 ML IVPB SCH ×3 (01:49→17:33)
[2018-04-30] MEDS: CEFTAZIDIME PENTAHYDRATE 1 GM in DEXTROSE 5%-WATER - 50 ML IVPB SCH ×3 (01:49→18:29)
[2018-04-30] MEDS: FUROSEMIDE 40 MG TABLET (FP) GT SCH ×2 (06:42→15:46)
[2018-04-30 08:14] LABS: BASO % 0.5 % (0-2.0); EOS % 2.9 % (0-4.5); HEMATOCRIT 28.6 % (35.4-49); HEMOGLOBIN 8.5 GM/dL (11.7-16.9); LYMPH % 16.2 % (8-40); MCH 23.5 pg (25.7-33.7); MCHC 29.7 g/dl (32.0-35.9); MEAN CELL VOLUME 79.1 fl (80-96); MEAN PLT VOLUME 8.7 fl (7.5-11.1); MONO % 9.4 % (3.8-10.2); PLATELET COUNT 365 K/MM3 (134-434); RBC 3.61 M/mm3 (4.00-5.60); RDW 18.7 % (11.9-15.9); WHITE BLOOD COUNT 17.6 K/mm3 (4.0-10.0)
[2018-04-30 08:39] LABS: ALBUMIN 1.1 g/dl (3.4-5.0); ALK PHOS 143 U/L (45-117); ANION GAP 6 MMOL/L (8-16); BILIRUBIN,TOTAL 0.2 mg/dL (0.2-1); BLOOD UREA NITROGEN 48 mg/dL (7-18); CHLORIDE 113 mmol/L (98-107); CO2 31 mmol/L (21-32); CREATININE 0.7 mg/dL (0.55-1.3); GLUCOSE,RANDOM 136 mg/dL (74-106); POTASSIUM 3.5 mmol/L (3.5-5.1); SGOT/AST 42 U/L (15-37); SGPT/ALT 17 U/L (13-61); SODIUM 150 mmol/L (136-145)
[2018-04-30 08:44] LABS: INR 1.99 (0.83-1.09); PROTHROMBIN TIME (PATIENT) 23.7 SEC (9.7-13.0)
[2018-04-30] MEDS: ALBUTEROL SO4 2.5/IPRATROPIUM 0.5 INH SOL 3 ML VIAL.NEB. NEB SCH ×4 (09:11→20:00)
[2018-04-30] MEDS: ZINC SULFATE 220 MG CAPSULE (FP) PO SCH (09:16)
[2018-04-30] MEDS: RANITIDINE HCL 150 MG/10 ML UNIT-DOSE GT SCH (09:16)
[2018-04-30] MEDS: ASCORBIC ACID 500 MG TABLET (FP) GT SCH (09:16)
[2018-04-30] MEDS: oxyCODONE HCL 5 MG TABLET GT PRN (09:16)
[2018-04-30] MEDS: CARBIDOPA/LEVODOPA 25/100 TABLET (FP) GT SCH ×2 (09:16→22:20)
[2018-04-30] MEDS: MULTIVITAMINS (DAILY MVI) TABLET (FP) PO SCH (09:16)
[2018-04-30] MEDS: AMINO ACIDS/PROTEIN HYDROLYS 30 ML LIQUID.PKT PO SCH ×2 (09:16→17:33)
[2018-04-30] MEDS: SODIUM HYPOCHLORITE 0.25%- 473 ML BULK BOTTLE TP SCH (09:19)
--- NOTE | 2018-04-30 12:12 | PN ---
Progress Note, Physician Chief Complaint: patient on vent unresponsive wbc count noted from - today no fever - Current Medication List Current Medications: Active Medications Albuterol/Ipratropium (Duoneb -) 1 amp NEB RQID [facility] Last Admin: 04/30/18 11:50 Dose: 1 amp Amino Acids (Prosource No Carb Liquid Pkt) 30 ml PO BID@0800,1730 [facility] Last Admin: 04/30/18 09:16 Dose: 30 ml Ascorbic Acid (Vitamin C -) 500 mg GT DAILY [facility] Last Admin: 04/30/18 09:16 Dose: 500 mg Calcium Carbonate (Calcium Carb Oral Suspension -) 500 mg PEG BID [facility] Carbidopa/Levodopa (Sinemet 25/100 -) 1 each GT BID [facility] Last Admin: 04/30/18 09:16 Dose: 1 each Collagenase (Santyl -) 1 applic TP DAILY [facility]; Protocol Last Admin: 04/29/18 12:16 Dose: 1 applic Donepezil HCl (Aricept -) 10 mg GT HS [facility] Last Admin: 04/29/18 21:34 Dose: 10 mg Furosemide (Lasix -) 40 mg GT BID@0600,1400 [facility] Last Admin: 04/30/18 06:42 Dose: 40 mg Vancomycin HCl 1,250 mg/ (Dextrose) 250 mls @ 166.667 mls/hr IVPB Q24H [facility]; Protocol Last Admin: 04/29/18 12:46 Dose: 166.667 mls/hr Meropenem 1 gm/ Dextrose 100 mls @ 200 mls/hr IVPB Q8H-IV [facility] Last Admin: 04/30/18 09:00 Dose: 200 mls/hr Ceftazidime 1 gm/ Dextrose 50 mls @ 100 mls/hr IVPB Q8H-IV [facility] Last Admin: 04/30/18 10:12 Dose: 100 mls/hr Multivitamins/Minerals/Vitamin C (Tab-A-Vit -) 1 tab PO DAILY [facility] Last Admin: 04/30/18 09:16 Dose: 1 tab Oxycodone HCl (Roxicodone -) 5 mg GT Q6H PRN PRN Reason: PAIN LEVEL 6-10 Last Admin: 04/30/18 09:16 Dose: 5 mg Ranitidine HCl (Zantac Oral Solution -) 150 mg GT DAILY [facility] Last Admin: 04/30/18 09:16 Dose: 150 mg Sodium Hypochlorite (Dakin's Solution 0.25% (Half-Strength) -) 1 applic TP DAILY [facility] Last Admin: 04/30/18 09:19 Dose: 1 applic Warfarin Sodium (Coumadin -) 3 mg GT DAILY@1800 [facility] Last Admin: 04/29/18 17:26 Dose: 3 mg Zinc Sulfate (Orazinc -) 220 mg PO DAILY [facility] Last Admin: 04/30/18 09:16 Dose: 220 mg - Objective Vital Signs: Vital Signs Temperature 99.6 F 04/30/18 09:00 Pulse Rate 83 04/30/18 09:10 Respiratory Rate 15 04/30/18 10:25 Blood Pressure 98/54 L 04/30/18 09:00 O2 Sat by Pulse Oximetry (%) 100 04/30/18 09:35 Constitutional: Yes: Calm Neck: Yes: Other (trach) Cardiovascular: Yes: Regular Rate and Rhythm, S1, S2 Respiratory: Yes: Mechanically Ventilated Gastrointestinal: Yes: Normal Bowel Sounds, Soft, Other ( gtube) Edema: Yes Labs: CBC, BMP 04/30/18 07:00 04/30/18 07:00 INR, PTT INR 1.99 (0.83-1.09) H 04/30/18 07:00 Problem List - Problems (1) Sepsis Assessment/Plan: patient sent in for multiple ulcers and inc wbc count seen by vascular surgery not a candidate for debridement- spoke to she wants to speak to Dr kwong to disccus why the wounds cannot be debrided a santyl and wet dressing frequent turn and position iv abx per ID Microbiology 04/24/18 20:35 Elbow - Right Gram Stain - Final 04/24/18 20:35 Elbow - Right Wound Culture - Final Escherichia Coli Esbl Thermostatic Controls Supervisor Acinetobacter Baumannii/Haemol Mr S Aureus Enterococcus Faecalis Enterococcus Raffinosus Pending Organism ceftazidime and meropenem and vacnomcyin inc WBC noted check stool for c diff- today Code(s): A41.9 - SEPSIS, UNSPECIFIED ORGANISM (2) A-fib Assessment/Plan: on coumadin daily inr Code(s): I48.91 - UNSPECIFIED ATRIAL FIBRILLATION Qualifiers: Atrial fibrillation type: chronic Qualified Code(s): I48.2 - Chronic atrial fibrillation (3) Chronic respiratory failure Assessment/Plan: vent support assist control not a candidate for weaning nebulizer Code(s): J96.10 - CHRONIC RESPIRATORY FAILURE, UNSP W HYPOXIA OR HYPERCAPNIA Qualifiers: Respiratory failure complication: hypoxia Qualified Code(s): J96.11 - Chronic respiratory failure with hypoxia (4) Dementia Assessment/Plan: sienemt and donezipil Code(s): F03.90 - UNSPECIFIED DEMENTIA WITHOUT BEHAVIORAL DISTURBANCE Qualifiers: Dementia type: Parkinson's disease Dementia behavioral disturbance: with behavioral disturbance Qualified Code(s): G20 - Parkinson's disease (5) Electrolyte abnormality Assessment/Plan: potassium repleted magnesium level ordered Code(s): E87.8 - OTH DISORDERS OF ELECTROLYTE AND FLUID BALANCE, NEC Assessment/Plan anemia iron deficiency venofer once wbc decreases
[2018-04-30] MEDS: COLLAGENASE CLOSTRIDIUM HIST. 30 GRAMS TUBE TP SCH (12:14)
[2018-04-30] MEDS: VANCOMYCIN 1,250 MG in DEXTROSE 5%-WATER - 250 ML IVPB SCH (12:16)
--- NOTE | 2018-04-30 12:17 | PN ---
Progress Note, Physician History of Present Illness: no gross changes it seems wants complete treatment including debridement wbc has jumped up inspite of abx having loose bm but patient is o tube feeds repeat blood cx is negative - Current Medication List Current Medications: Active Medications Albuterol/Ipratropium (Duoneb -) 1 amp NEB RQID [facility] Last Admin: 04/30/18 11:50 Dose: 1 amp Amino Acids (Prosource No Carb Liquid Pkt) 30 ml PO BID@0800,1730 [facility] Last Admin: 04/30/18 09:16 Dose: 30 ml Ascorbic Acid (Vitamin C -) 500 mg GT DAILY [facility] Last Admin: 04/30/18 09:16 Dose: 500 mg Calcium Carbonate (Calcium Carb Oral Suspension -) 500 mg PEG BID [facility] Carbidopa/Levodopa (Sinemet 25/100 -) 1 each GT BID [facility] Last Admin: 04/30/18 09:16 Dose: 1 each Collagenase (Santyl -) 1 applic TP DAILY [facility]; Protocol Last Admin: 04/29/18 12:16 Dose: 1 applic Donepezil HCl (Aricept -) 10 mg GT HS [facility] Last Admin: 04/29/18 21:34 Dose: 10 mg Furosemide (Lasix -) 40 mg GT BID@0600,1400 [facility] Last Admin: 04/30/18 06:42 Dose: 40 mg Vancomycin HCl 1,250 mg/ (Dextrose) 250 mls @ 166.667 mls/hr IVPB Q24H [facility]; Protocol Last Admin: 04/29/18 12:46 Dose: 166.667 mls/hr Meropenem 1 gm/ Dextrose 100 mls @ 200 mls/hr IVPB Q8H-IV [facility] Last Admin: 04/30/18 09:00 Dose: 200 mls/hr Ceftazidime 1 gm/ Dextrose 50 mls @ 100 mls/hr IVPB Q8H-IV [facility] Last Admin: 04/30/18 10:12 Dose: 100 mls/hr Multivitamins/Minerals/Vitamin C (Tab-A-Vit -) 1 tab PO DAILY [facility] Last Admin: 04/30/18 09:16 Dose: 1 tab Oxycodone HCl (Roxicodone -) 5 mg GT Q6H PRN PRN Reason: PAIN LEVEL 6-10 Last Admin: 04/30/18 09:16 Dose: 5 mg Ranitidine HCl (Zantac Oral Solution -) 150 mg GT DAILY [facility] Last Admin: 04/30/18 09:16 Dose: 150 mg Sodium Hypochlorite (Dakin's Solution 0.25% (Half-Strength) -) 1 applic TP DAILY [facility] Last Admin: 04/30/18 09:19 Dose: 1 applic Warfarin Sodium (Coumadin -) 3 mg GT DAILY@1800 [facility] Last Admin: 04/29/18 17:26 Dose: 3 mg Zinc Sulfate (Orazinc -) 220 mg PO DAILY [facility] Last Admin: 04/30/18 09:16 Dose: 220 mg - Objective Vital Signs: Vital Signs Temperature 99.6 F 04/30/18 09:00 Pulse Rate 83 04/30/18 09:10 Respiratory Rate 15 04/30/18 10:25 Blood Pressure 98/54 L 04/30/18 09:00 O2 Sat by Pulse Oximetry (%) 100 04/30/18 09:35 Constitutional: Yes: Other (no gross changes neurologically) Neck: Yes: Other (trach) Cardiovascular: Yes: S1, S2 Respiratory: Yes: Mechanically Ventilated, Other (trach) Gastrointestinal: Yes: Normal Bowel Sounds, Soft, Other (peg in place) Musculoskeletal: Yes: Other Extremities: Yes: Other Neurological: Yes: Other Labs: CBC, BMP 04/30/18 07:00 04/30/18 07:00 INR, PTT INR 1.99 (0.83-1.09) H 04/30/18 07:00 Assessment/Plan Problem List - Problems (1) A-fib Code(s): I48.91 - UNSPECIFIED ATRIAL FIBRILLATION Qualifiers: Atrial fibrillation type: chronic Qualified Code(s): I48.2 - Chronic atrial fibrillation (2) CHF (congestive heart failure) Code(s): I50.9 - HEART FAILURE, UNSPECIFIED (3) Chronic atrial fibrillation Code(s): I48.2 - CHRONIC ATRIAL FIBRILLATION (4) Chronic osteomyelitis Code(s): M86.60 - OTHER CHRONIC OSTEOMYELITIS, UNSPECIFIED SITE (5) Chronic respiratory failure Code(s): J96.10 - CHRONIC RESPIRATORY FAILURE, UNSP W HYPOXIA OR HYPERCAPNIA Qualifiers: Respiratory failure complication: hypoxia Qualified Code(s): J96.11 - Chronic respiratory failure with hypoxia (6) Dementia Code(s): F03.90 - UNSPECIFIED DEMENTIA WITHOUT BEHAVIORAL DISTURBANCE Qualifiers: Dementia type: Parkinson's disease Dementia behavioral disturbance: with behavioral disturbance Qualified Code(s): G20 - Parkinson's disease (7) Hyperlipemia Code(s): E78.5 - HYPERLIPIDEMIA, UNSPECIFIED (8) PEG (percutaneous endoscopic gastrostomy) adjustment/replacement/removal Code(s): Z43.1 - ENCOUNTER FOR ATTENTION TO GASTROSTOMY (9) Parkinson disease Code(s): G20 - PARKINSON'S DISEASE (10) Pleural effusion Code(s): J90 - PLEURAL EFFUSION, NOT ELSEWHERE CLASSIFIED (11) Sacral decubitus ulcer Code(s): L89.159 - PRESSURE ULCER OF SACRAL REGION, UNSPECIFIED STAGE Qualifiers: Qualified Code(s): L89.153 - Pressure ulcer of sacral region, stage 3 (12) Ventilator dependent Code(s): Z99.11 - DEPENDENCE ON RESPIRATOR [VENTILATOR] STATUS (13) Sepsis Code(s): A41.9 - SEPSIS, UNSPECIFIED ORGANISM (14) Sepsis Code(s): A41.9 - SEPSIS, UNSPECIFIED ORGANISM (15) Lactate blood increase Code(s): R79.89 - OTHER SPECIFIED ABNORMAL FINDINGS OF BLOOD CHEMISTRY 16 gm negative bacteremia 17 wound infection plan continue abx send a stool for cdiff as per families wishes further mgmt nutrition wound care rest as per the team awaiting one more organism repeat blood cx negative so far
--- NOTE | 2018-04-30 13:25 | PN ---
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 PRESENT MINIMALLY RESPONSIVE VSS/LOW GRADE TEMP TODAY PALE DIMINISHED B/L BS S1S2 BS+ PEG LOWER EXT 1-2+ EDEMA MICRO/LABS/RADIOGRAPHS/NOTES REVIEWED PSEUDOMANAS IN BLOOD CULTURE POLYMICROBIAL DECUBITI A/P Chronic Respiratory Failure/Vent support Decubitus Ulcer Infection UTI Gram Negative Bacteremia Sepsis Lactic Acidosis LV Diastolic Dysfunction Atrial Fibrillation h/o CVA Parkinsons Dementia - continue antibiotics - f/u cultures - inhaled bronchodilators - continue volume assist control - poor candidate for weaning due to mental status - replete lytes - enteral feeds - DVT/GI prophylaxis Renaldo ROMANO MD
--- NOTE | 2018-04-30 15:28 | PN ---
Progress Note (short form) - Note Progress Note: informed Dr Rosario that of patient would like to speak with her he will contact her regarding the sacral wounds Problem List - Problems (1) Sepsis Code(s): A41.9 - SEPSIS, UNSPECIFIED ORGANISM (2) A-fib Code(s): I48.91 - UNSPECIFIED ATRIAL FIBRILLATION Qualifiers: Atrial fibrillation type: chronic Qualified Code(s): I48.2 - Chronic atrial fibrillation (3) Chronic respiratory failure Code(s): J96.10 - CHRONIC RESPIRATORY FAILURE, UNSP W HYPOXIA OR HYPERCAPNIA Qualifiers: Respiratory failure complication: hypoxia Qualified Code(s): J96.11 - Chronic respiratory failure with hypoxia (4) Dementia Code(s): F03.90 - UNSPECIFIED DEMENTIA WITHOUT BEHAVIORAL DISTURBANCE Qualifiers: Dementia type: Parkinson's disease Dementia behavioral disturbance: with behavioral disturbance Qualified Code(s): G20 - Parkinson's disease (5) Electrolyte abnormality Code(s): E87.8 - OTH DISORDERS OF ELECTROLYTE AND FLUID BALANCE, NEC
--- NOTE | 2018-04-30 15:54 | PN ---
Progress Note (short form) - Note Progress Note: Vascular Surgery Pt seen and examined. Sacral ulcers nice and clean. Cont santyl. Bilateal heel ulcers clean, pink,bone exposed. Cont santyl Right elbow with slough and bone exposed. Would ask ortho opinion for debridment since it the wound has a joint exposed. Cont present care. Gutierrez Rosario DO
[2018-04-30] MEDS: WARFARIN NA 3 MG TABLET GT SCH (17:33)
[2018-04-30] MEDS: ACETAMINOPHEN 650 MG/20.3 ML ORAL SOLUTION (CUPS) PO PRN (17:33)
[2018-04-30] MEDS: CALCIUM CARBONATE SUSPENSION - 500 MG/5 ML ML PEG SCH (22:19)
[2018-04-30] MEDS: DONEPEZIL HCL 10 MG TABLET (FP) GT SCH (22:20)
[2018-05-01] MEDS: MEROPENEM 1 GM in DEXTROSE 5%-WATER 100 ML IVPB SCH ×3 (01:54→17:05)
[2018-05-01] MEDS: CEFTAZIDIME PENTAHYDRATE 1 GM in DEXTROSE 5%-WATER - 50 ML IVPB SCH ×3 (02:32→17:05)
[2018-05-01] MEDS: FUROSEMIDE 40 MG TABLET (FP) GT SCH (05:04)
[2018-05-01] MEDS: AMINO ACIDS/PROTEIN HYDROLYS 30 ML LIQUID.PKT PO SCH ×2 (08:17→16:47)
[2018-05-01] MEDS: ALBUTEROL SO4 2.5/IPRATROPIUM 0.5 INH SOL 3 ML VIAL.NEB. NEB SCH ×4 (08:20→20:29)
[2018-05-01 08:33] LABS: BASO % 0.6 % (0-2.0); EOS % 3.8 % (0-4.5); HEMATOCRIT 29.2 % (35.4-49); HEMOGLOBIN 8.8 GM/dL (11.7-16.9); LYMPH % 15.7 % (8-40); MCH 23.8 pg (25.7-33.7); MEAN CELL VOLUME 79.6 fl (80-96); MEAN PLT VOLUME 8.9 fl (7.5-11.1); MONO % 8.4 % (3.8-10.2); NEUT % 71.5 % (42.8-82.8); PLATELET COUNT 410 K/MM3 (134-434); RBC 3.68 M/mm3 (4.00-5.60); RDW 18.7 % (11.9-15.9); WHITE BLOOD COUNT 18.7 K/mm3 (4.0-10.0)
[2018-05-01 08:41] LABS: INR 2.14 (0.83-1.09); PROTHROMBIN TIME (PATIENT) 25.4 SEC (9.7-13.0)
[2018-05-01 09:07] LABS: ALBUMIN 1.2 g/dl (3.4-5.0); ALK PHOS 154 U/L (45-117); ANION GAP 5 MMOL/L (8-16); BILIRUBIN,TOTAL 0.3 mg/dL (0.2-1); BLOOD UREA NITROGEN 47 mg/dL (7-18); CALCIUM 7.1 mg/dL (8.5-10.1); CHLORIDE 111 mmol/L (98-107); CO2 31 mmol/L (21-32); CREATININE 0.6 mg/dL (0.55-1.3); GLUCOSE,RANDOM 120 mg/dL (74-106); POTASSIUM 3.3 mmol/L (3.5-5.1); SGOT/AST 60 U/L (15-37); SGPT/ALT 24 U/L (13-61); SODIUM 148 mmol/L (136-145); TOT PROT 6.2 g/dl (6.4-8.2)
[2018-05-01] MEDS: ZINC SULFATE 220 MG CAPSULE (FP) PO SCH (11:17)
[2018-05-01] MEDS: CARBIDOPA/LEVODOPA 25/100 TABLET (FP) GT SCH ×2 (11:17→21:44)
[2018-05-01] MEDS: ASCORBIC ACID 500 MG TABLET (FP) GT SCH (11:17)
[2018-05-01] MEDS: MULTIVITAMINS (DAILY MVI) TABLET (FP) PO SCH (11:17)
[2018-05-01] MEDS: RANITIDINE HCL 150 MG/10 ML UNIT-DOSE GT SCH (11:17)
[2018-05-01] MEDS: CALCIUM CARBONATE SUSPENSION - 500 MG/5 ML ML PEG SCH ×2 (11:18→21:47)
[2018-05-01] MEDS: COLLAGENASE CLOSTRIDIUM HIST. 30 GRAMS TUBE TP SCH (11:19)
[2018-05-01] MEDS: SODIUM HYPOCHLORITE 0.25%- 473 ML BULK BOTTLE TP SCH (11:19)
--- NOTE | 2018-05-01 11:47 | CON.ORTH ---
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, Parkinson's Cardio/Vascular: Yes: AFIB (paroxysmal), CAD, Deep Vein Thrombosis, Hyperlipdemia Pulmonary: Yes: COPD, Pneumonia (repeated aspiration pneumonias, Pseudomonas pneumonia 07/21) Gastrointestinal: Yes: Other (ischemic colitis and sigmoid adenoma removed , gastric cardia polyps) Renal/: Yes: BPH, Renal Calculi Infectious Disease: Yes: Other (, aspiration pneumonia in the past) Psych: Yes: Depression Musculoskeletal: Yes: Hemiplegia - Past Surgical History Past Surgical History: Yes: Colonoscopy, Hernia Repair (right inguinal hernia repair), Upper Endoscopy - Alcohol/Substance Use Hx Alcohol Use: No - Smoking History Smoking history: Former smoker Have you smoked in the past 12 months: No Aproximately how many cigarettes per day: 0 If you are a former smoker, when did you quit?: 40 years ago - Social History Usual Living Arrangement: Custodial ADL: Support Services (has home health aid) 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, [employer]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 History of Recent Travel: No Home Medications - Allergies Allergies/Adverse Reactions: Allergies Allergy/AdvReac Type Severity Reaction Status Date / Time latex Allergy Verified 04/24/18 20:03 No Known Drug Allergies Allergy Verified 04/24/18 20:03 - Home Medications Home Medications: Ambulatory Orders Albuterol 2.5/Ipratropium 0.5 [Duoneb -] 1 neb IH Q6H 03/20/16 Ascorbic Acid [Vitamin C -] 500 mg GT DAILY 03/20/16 Carbidopa/Levodopa [Carbidopa-Levodopa 25-100 Tab] 1 each GT BID 03/20/16 Aa/[place]/Arg/C/Zn/Cu [Lps Critical Care Liquid] 30 ml GT DAILY Donepezil HCl [Aricept -] 10 mg GT DAILY 07/09/16 Collagenase Clostridium Hist. [Santyl -] 1 applic TP DAILY tube 07/14/16 Bacitracin - [Bacitracin Topical Ointment -] 1 applic TP DAILY tube 09/05/16 Lactobacillus Acidophilus [Bacid -] 1 tab GT DAILY tab 09/05/16 Scopolamine Hydrobromide [Transderm-Scop -] 1 patch TD Q72H patch.[id number] Acetaminophen [Tylenol .Regular Strength -] 650 mg GT ASDIR PRN 07/25/17 Albuterol 2.5/Ipratropium 0.5 [Duoneb -] 1 neb NEB Q4H 07/25/17 Calcium Carbonate/Vitamin D3 [Oyster Shell 500-Vit D3 200 Tb] 1 each GT DAILY Furosemide [Lasix -] 40 mg GT BID@0600,1400 07/25/17 Loperamide HCl [Loperamide] 2 mg GT Q6H 07/25/17 Potassium Chloride Oral Soln [KCl Oral Solution -] 40 meq GT DAILY 07/25/17 Ranitidine Oral Solution [Zantac Oral Solution -] 150 mg GT DAILY 07/25/17 Silver Sulfadiazine 1% Top Cr [Silvadene -] 1 applic TP DAILY 07/25/17 Warfarin Na [Coumadin -] 3.5 mg GT DAILY@1800 07/25/17 Zinc Sulfate [Orazinc -] 220 mg GT BID 07/25/17 oxyCODONE HCL [Roxicodone -] 5 mg GT Q6H 07/25/17 Physical Exam for Ortho Vital Signs: Vital Signs Temperature 99.1 F 05/01/18 06:00 Pulse Rate 86 05/01/18 06:00 Respiratory Rate 22 H 05/01/18 06:00 Blood Pressure 108/56 L 05/01/18 06:00 O2 Sat by Pulse Oximetry (%) 98 04/30/18 21:00 Labs: CBC, BMP 05/01/18 08:06 05/01/18 08:06 INR, PTT INR 2.14 (0.83-1.09) H 05/01/18 08:06 - Upper Extremity Elbow: Yes: Right, Other (+ open ulceration, tip of olecranon is exposed, mild erythema, minimal serosanginous drainage, able to range his elbow without issue) Assessment/Plan 82 year old male with history of Afib (on coumadin), chronic respiratory failure (s/p tracheostomy), CVA, CAD, dementia, Parkinson's, and is non-verbal presented from [facility] for numerous ulcers of the upper extremity, lower extremity, and sacrum. Ortho was asked to evaluate pt because bone was exposed on right elbow. a/p chronic non-healing ulcer- right elbow No surgical intervention recommended Continue current tx wound care IV abx as per ID No other Orthopedic interventions at this time re-consult prn d/w Dr. Bonilla
[2018-05-01] MEDS ORDERED: FUROSEMIDE 40 MG/4 ML INJECTABLE VIAL IVPUSH ONE (11:57)
--- NOTE | 2018-05-01 11:59 | PN ---
Progress Note, Physician Chief Complaint: sepsis History of Present Illness: NAD on mechanical vent Seen by ID On IV abx Microbiology 04/28/18 07:45 Blood - Peripheral Venous Blood Culture - Preliminary NO GROWTH OBTAINED AFTER 72 HOURS, INCUBATION TO CONTINUE FOR 2 DAYS. 04/28/18 07:30 Blood - Peripheral Venous Blood Culture - Preliminary NO GROWTH OBTAINED AFTER 72 HOURS, INCUBATION TO CONTINUE FOR 2 DAYS. 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 Esbl [employer] Acinetobacter Baumannii/Haemol Mr S Aureus Enterococcus Faecalis Enterococcus Raffinosus Pending Organism 04/24/18 20:00 Blood - Peripheral Venous Blood Culture - Final Pseudomonas Aeruginosa 04/24/18 20:16 Urine - Urine - Catheterized Urine Culture - Final Afebrile overnight Already evaluated by Vascular surgery- no recommendation for surgical debridement of pressure ulcers at this time Evaluated by Ortho- also recommended no surgical intervention at this time - Current Medication List Current Medications: Active Medications Acetaminophen (Tylenol Oral Solution -) 650 mg PO Q6H PRN PRN Reason: FEVER Last Admin: 04/30/18 17:33 Dose: 650 mg Albuterol/Ipratropium (Duoneb -) 1 amp NEB RQID [facility] Last Admin: 05/01/18 08:20 Dose: 1 amp Amino Acids (Prosource No Carb Liquid Pkt) 30 ml PO BID@0800,1730 [facility] Last Admin: 05/01/18 08:17 Dose: 30 ml Ascorbic Acid (Vitamin C -) 500 mg GT DAILY [facility] Last Admin: 05/01/18 11:17 Dose: 500 mg Calcium Carbonate (Calcium Carb Oral Suspension -) 500 mg PEG BID [facility] Last Admin: 05/01/18 11:18 Dose: 500 mg Carbidopa/Levodopa (Sinemet 25/100 -) 1 each GT BID [facility] Last Admin: 05/01/18 11:17 Dose: 1 each Collagenase (Santyl -) 1 applic TP DAILY [facility]; Protocol Last Admin: 05/01/18 11:19 Dose: 1 applic Donepezil HCl (Aricept -) 10 mg GT HS [facility] Last Admin: 04/30/18 22:20 Dose: 10 mg Furosemide (Lasix -) 40 mg GT BID@0600,1400 [facility] Last Admin: 05/01/18 05:04 Dose: 40 mg Vancomycin HCl 1,250 mg/ (Dextrose) 250 mls @ 166.667 mls/hr IVPB Q24H [facility]; Protocol Last Admin: 04/30/18 12:16 Dose: 166.667 mls/hr Meropenem 1 gm/ Dextrose 100 mls @ 200 mls/hr IVPB Q8H-IV [facility] Last Admin: 05/01/18 11:20 Dose: 200 mls/hr Ceftazidime 1 gm/ Dextrose 50 mls @ 100 mls/hr IVPB Q8H-IV [facility] Last Admin: 05/01/18 11:20 Dose: 100 mls/hr Multivitamins/Minerals/Vitamin C (Tab-A-Vit -) 1 tab PO DAILY [facility] Last Admin: 05/01/18 11:17 Dose: 1 tab Oxycodone HCl (Roxicodone -) 5 mg GT Q6H PRN PRN Reason: PAIN LEVEL 6-10 Last Admin: 04/30/18 09:16 Dose: 5 mg Potassium Chloride (Potassium Chloride Oral Liquid) 40 meq PO DAILY [facility] Ranitidine HCl (Zantac Oral Solution -) 150 mg GT DAILY [facility] Last Admin: 05/01/18 11:17 Dose: 150 mg Sodium Hypochlorite (Dakin's Solution 0.25% (Half-Strength) -) 1 applic TP DAILY [facility] Last Admin: 05/01/18 11:19 Dose: 1 applic Warfarin Sodium (Coumadin -) 3 mg GT DAILY@1800 [facility] Last Admin: 04/30/18 17:33 Dose: 3 mg Zinc Sulfate (Orazinc -) 220 mg PO DAILY [facility] Last Admin: 05/01/18 11:17 Dose: 220 mg - Objective Vital Signs: Vital Signs Temperature 99.1 F 05/01/18 06:00 Pulse Rate 86 05/01/18 06:00 Respiratory Rate 22 H 05/01/18 06:00 Blood Pressure 108/56 L 05/01/18 06:00 O2 Sat by Pulse Oximetry (%) 98 04/30/18 21:00 Constitutional: Yes: Well Nourished, No Distress, Calm Cardiovascular: Yes: Regular Rate and Rhythm Respiratory: Yes: Mechanically Ventilated Gastrointestinal: Yes: Normal Bowel Sounds, Soft Musculoskeletal: Yes: WNL Extremities: Yes: WNL Edema: Yes (generalized) Neurological: Yes: Pre-Existing Deficit Labs: CBC, BMP 05/01/18 08:06 05/01/18 08:06 INR, PTT INR 2.14 (0.83-1.09) H 05/01/18 08:06 Problem List - Problems (1) Sepsis Assessment/Plan: culture: Microbiology 04/28/18 07:45 Blood - Peripheral Venous Blood Culture - Preliminary NO GROWTH OBTAINED AFTER 72 HOURS, INCUBATION TO CONTINUE FOR 2 DAYS. 04/28/18 07:30 Blood - Peripheral Venous Blood Culture - Preliminary NO GROWTH OBTAINED AFTER 72 HOURS, INCUBATION TO CONTINUE FOR 2 DAYS. 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 Esbl [employer] Acinetobacter Baumannii/Haemol Mr S Aureus Enterococcus Faecalis Enterococcus Raffinosus Pending Organism 04/24/18 20:00 Blood - Peripheral Venous Blood Culture - Final Pseudomonas Aeruginosa 04/24/18 20:16 Urine - Urine - Catheterized Urine Culture - Final -IV abx -ID on board -afebrile overnight -repeat LA normal -monitor WBC Code(s): A41.9 - SEPSIS, UNSPECIFIED ORGANISM (2) Chronic respiratory failure Assessment/Plan: -mechanical vent -Pulmonary on board -Bronchodilators -not a candidate for weaning at this time Code(s): J96.10 - CHRONIC RESPIRATORY FAILURE, UNSP W HYPOXIA OR HYPERCAPNIA Qualifiers: Respiratory failure complication: hypoxia Qualified Code(s): J96.11 - Chronic respiratory failure with hypoxia (3) Pressure ulcer Assessment/Plan: -multiple wounds -2/2 to poor nutritional status -offloading -Santyl -Seen by Vascular and orthopedic surgery,no recommendation for surgical debridement of pressure ulcers at this time -prosource bid Code(s): L89.90 - PRESSURE ULCER OF UNSPECIFIED SITE, UNSPECIFIED STAGE (4) UTI (lower urinary tract infection) Assessment/Plan: -ID on baord -IV abx -afebrile Code(s): N39.0 - URINARY TRACT INFECTION, SITE NOT SPECIFIED (5) Ventilator dependent Code(s): Z99.11 - DEPENDENCE ON RESPIRATOR [VENTILATOR] STATUS (6) Anemia Assessment/Plan: -chronic -Iron profile pending -thyroid profile, B 12, folate unremarkable -stool OB negative -transfuse if Hg <7.0 to avoid fluid overload Code(s): D64.9 - ANEMIA, UNSPECIFIED (7) Generalized edema Assessment/Plan: 2/2 -hypoalbuminemia -give furosemide 40 mg IVP once now, then change to 40 mg IVP BID Code(s): R60.1 - GENERALIZED EDEMA Assessment/Plan see problem list Overall poor prognosis palliative consult
[2018-05-01] MEDS: POTASSIUM CHLORIDE ORAL LIQUID 20 MEQ/15 ML PO SCH (12:25)
--- NOTE | 2018-05-01 13:28 | PN ---
Progress Note (short form) - Note Progress Note: PULMONARY Vented, unresponsive. No fevers recorded. Vital Signs Period Temp Pulse Resp BP Sys/Limon Pulse Ox Last 24 Hr 98.8 F-99.8 F 79-92 13-24 104-111/46-63 98-98 Gen: vented, unresponsive Heart: RRR Lung: scattered rhonchi Abd: soft, nontender Ext: + edema CBC, BMP 05/01/18 08:06 05/01/18 08:06 Active Medications Acetaminophen (Tylenol Oral Solution -) 650 mg PO Q6H PRN PRN Reason: FEVER Last Admin: 04/30/18 17:33 Dose: 650 mg Albuterol/Ipratropium (Duoneb -) 1 amp NEB RQID [facility] Last Admin: 05/01/18 08:20 Dose: 1 amp Amino Acids (Prosource No Carb Liquid Pkt) 30 ml PO BID@0800,1730 [facility] Last Admin: 05/01/18 08:17 Dose: 30 ml Ascorbic Acid (Vitamin C -) 500 mg GT DAILY [facility] Last Admin: 05/01/18 11:17 Dose: 500 mg Calcium Carbonate (Calcium Carb Oral Suspension -) 500 mg PEG BID [facility] Last Admin: 05/01/18 11:18 Dose: 500 mg Carbidopa/Levodopa (Sinemet 25/100 -) 1 each GT BID [facility] Last Admin: 05/01/18 11:17 Dose: 1 each Collagenase (Santyl -) 1 applic TP DAILY [facility]; Protocol Last Admin: 05/01/18 11:19 Dose: 1 applic Donepezil HCl (Aricept -) 10 mg GT HS [facility] Last Admin: 04/30/18 22:20 Dose: 10 mg Furosemide (Lasix Injection -) 40 mg IVPUSH BID@0600,1400 [facility] Vancomycin HCl 1,250 mg/ (Dextrose) 250 mls @ 166.667 mls/hr IVPB Q24H [facility]; Protocol Last Admin: 04/30/18 12:16 Dose: 166.667 mls/hr Meropenem 1 gm/ Dextrose 100 mls @ 200 mls/hr IVPB Q8H-IV [facility] Last Admin: 05/01/18 11:20 Dose: 200 mls/hr Ceftazidime 1 gm/ Dextrose 50 mls @ 100 mls/hr IVPB Q8H-IV [facility] Last Admin: 05/01/18 11:20 Dose: 100 mls/hr Multivitamins/Minerals/Vitamin C (Tab-A-Vit -) 1 tab PO DAILY [facility] Last Admin: 05/01/18 11:17 Dose: 1 tab Oxycodone HCl (Roxicodone -) 5 mg GT Q6H PRN PRN Reason: PAIN LEVEL 6-10 Last Admin: 04/30/18 09:16 Dose: 5 mg Potassium Chloride (Potassium Chloride Oral Liquid) 40 meq PO DAILY [facility] Ranitidine HCl (Zantac Oral Solution -) 150 mg GT DAILY [facility] Last Admin: 05/01/18 11:17 Dose: 150 mg Sodium Hypochlorite (Dakin's Solution 0.25% (Half-Strength) -) 1 applic TP DAILY [facility] Last Admin: 05/01/18 11:19 Dose: 1 applic Warfarin Sodium (Coumadin -) 3 mg GT DAILY@1800 [facility] Last Admin: 04/30/18 17:33 Dose: 3 mg Zinc Sulfate (Orazinc -) 220 mg PO DAILY [facility] Last Admin: 05/01/18 11:17 Dose: 220 mg A/P Chronic Respiratory Failure Decubitus Ulcer Infection UTI Gram Negative Bacteremia Sepsis Lactic Acidosis LV Diastolic Dysfunction Atrial Fibrillation h/o CVA Parkinsons Dementia - continue antibiotics - inhaled bronchodilators - continue volume assist control - poor candidate for weaning due to mental status - replete lytes - enteral feeds - DVT/GI prophylaxis
--- NOTE | 2018-05-01 15:37 | PN ---
Progress Note, Physician History of Present Illness: Pt is nonverbal, without obvious distress. Tmax 99.1F. - Current Medication List Current Medications: Active Medications Acetaminophen (Tylenol Oral Solution -) 650 mg PO Q6H PRN PRN Reason: FEVER Last Admin: 04/30/18 17:33 Dose: 650 mg Albuterol/Ipratropium (Duoneb -) 1 amp NEB RQID [facility] Last Admin: 05/01/18 11:50 Dose: 1 amp Amino Acids (Prosource No Carb Liquid Pkt) 30 ml PO BID@0800,1730 [facility] Last Admin: 05/01/18 08:17 Dose: 30 ml Ascorbic Acid (Vitamin C -) 500 mg GT DAILY [facility] Last Admin: 05/01/18 11:17 Dose: 500 mg Calcium Carbonate (Calcium Carb Oral Suspension -) 500 mg PEG BID [facility] Last Admin: 05/01/18 11:18 Dose: 500 mg Carbidopa/Levodopa (Sinemet 25/100 -) 1 each GT BID [facility] Last Admin: 05/01/18 11:17 Dose: 1 each Collagenase (Santyl -) 1 applic TP DAILY [facility]; Protocol Last Admin: 05/01/18 11:19 Dose: 1 applic Donepezil HCl (Aricept -) 10 mg GT HS [facility] Last Admin: 04/30/18 22:20 Dose: 10 mg Furosemide (Lasix Injection -) 40 mg IVPUSH BID@0600,1400 [facility] Vancomycin HCl 1,250 mg/ (Dextrose) 250 mls @ 166.667 mls/hr IVPB Q24H [facility]; Protocol Last Admin: 04/30/18 12:16 Dose: 166.667 mls/hr Meropenem 1 gm/ Dextrose 100 mls @ 200 mls/hr IVPB Q8H-IV [facility] Last Admin: 05/01/18 11:20 Dose: 200 mls/hr Ceftazidime 1 gm/ Dextrose 50 mls @ 100 mls/hr IVPB Q8H-IV [facility] Last Admin: 05/01/18 11:20 Dose: 100 mls/hr Multivitamins/Minerals/Vitamin C (Tab-A-Vit -) 1 tab PO DAILY [facility] Last Admin: 05/01/18 11:17 Dose: 1 tab Oxycodone HCl (Roxicodone -) 5 mg GT Q6H PRN PRN Reason: PAIN LEVEL 6-10 Last Admin: 04/30/18 09:16 Dose: 5 mg Potassium Chloride (Potassium Chloride Oral Liquid) 40 meq PO DAILY [facility] Last Admin: 05/01/18 12:25 Dose: 40 meq Ranitidine HCl (Zantac Oral Solution -) 150 mg GT DAILY [facility] Last Admin: 05/01/18 11:17 Dose: 150 mg Sodium Hypochlorite (Dakin's Solution 0.25% (Half-Strength) -) 1 applic TP DAILY [facility] Last Admin: 05/01/18 11:19 Dose: 1 applic Warfarin Sodium (Coumadin -) 3 mg GT DAILY@1800 [facility] Last Admin: 04/30/18 17:33 Dose: 3 mg Zinc Sulfate (Orazinc -) 220 mg PO DAILY [facility] Last Admin: 05/01/18 11:17 Dose: 220 mg - Objective Vital Signs: Vital Signs Temperature 98.5 F 05/01/18 14:49 Pulse Rate 93 H 05/01/18 14:49 Respiratory Rate 14 05/01/18 14:49 Blood Pressure 100/66 05/01/18 14:49 O2 Sat by Pulse Oximetry (%) 98 04/30/18 21:00 Constitutional: Yes: No Distress Cardiovascular: Yes: Regular Rate and Rhythm Respiratory: Yes: Rhonchi Gastrointestinal: Yes: Normal Bowel Sounds, Soft, Abdomen, Obese ...Rectal Exam: Yes: Other (rectal tube) Integumentary: Yes: Pressure Ulcer (Rt elbow ulcer with surrounding erythema, Sacral DU) Wound/Incision: Yes: Dressing Dry and Intact Neurological: Yes: Other (nonverbal) Labs: CBC, BMP 05/01/18 08:06 05/01/18 08:06 INR, PTT INR 2.14 (0.83-1.09) H 05/01/18 08:06 Microbiology 04/30/18 18:30 Stool Clostridium difficile Antigen (FAVIAN) - Final 04/30/18 18:30 Stool Clostridium difficile Toxin Assay - Final 04/28/18 07:45 Blood - Peripheral Venous Blood Culture - Preliminary NO GROWTH OBTAINED AFTER 72 HOURS, INCUBATION TO CONTINUE FOR 2 DAYS. 04/28/18 07:30 Blood - Peripheral Venous Blood Culture - Preliminary NO GROWTH OBTAINED AFTER 72 HOURS, INCUBATION TO CONTINUE FOR 2 DAYS. 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 Acinetobacter Baumannii/Haemol Mr S Aureus Enterococcus Faecalis Enterococcus Raffinosus Pending Organism 04/24/18 20:00 Blood - Peripheral Venous Blood Culture - Final Pseudomonas Aeruginosa 04/24/18 20:16 Urine - Urine - Catheterized Urine Culture - Final Problem List - Problems (1) Anemia Code(s): D64.9 - ANEMIA, UNSPECIFIED (2) Electrolyte abnormality Code(s): E87.8 - OTH DISORDERS OF ELECTROLYTE AND FLUID BALANCE, NEC (3) Sepsis Code(s): A41.9 - SEPSIS, UNSPECIFIED ORGANISM (4) A-fib Code(s): I48.91 - UNSPECIFIED ATRIAL FIBRILLATION Qualifiers: Atrial fibrillation type: chronic Qualified Code(s): I48.2 - Chronic atrial fibrillation (5) Acute on chronic diastolic CHF (congestive heart failure) Code(s): I50.33 - ACUTE ON CHRONIC DIASTOLIC (CONGESTIVE) HEART FAILURE (6) CHF (congestive heart failure) Code(s): I50.9 - HEART FAILURE, UNSPECIFIED (7) Chronic osteomyelitis Code(s): M86.60 - OTHER CHRONIC OSTEOMYELITIS, UNSPECIFIED SITE (8) Chronic respiratory failure Code(s): J96.10 - CHRONIC RESPIRATORY FAILURE, UNSP W HYPOXIA OR HYPERCAPNIA Qualifiers: Respiratory failure complication: hypoxia Qualified Code(s): J96.11 - Chronic respiratory failure with hypoxia (9) Dementia Code(s): F03.90 - UNSPECIFIED DEMENTIA WITHOUT BEHAVIORAL DISTURBANCE Qualifiers: Dementia type: Parkinson's disease Dementia behavioral disturbance: with behavioral disturbance Qualified Code(s): G20 - Parkinson's disease (10) Diarrhea Code(s): R19.7 - DIARRHEA, UNSPECIFIED Qualifiers: Diarrhea type: unspecified type Qualified Code(s): R19.7 - Diarrhea, unspecified Assessment/Plan Pseudomonas bacteremia/Sepsis Polymicrobial Rt elbow/Sacral DU infection Chronic OM Leukocytosis Diarrhea Resp Failure s/p tracheostomy -- wbc increasing -- send stool C.diff PCR -- repeat blood cultures, monitor wbc trend/vitals -- continue IV antibiotics, will add flagyl empirically for now -- Orthopedics consult noted -- continue wound care, offloading
[2018-05-01] MEDS: FUROSEMIDE 40 MG/4 ML INJECTABLE VIAL IVPUSH SCH (16:48)
[2018-05-01] MEDS ORDERED: PT OWN MED DRAWER 7, Y5N ONE ×3 (17:03→23:56)
[2018-05-01] MEDS: WARFARIN NA 3 MG TABLET GT SCH (17:05)
[2018-05-01] MEDS: VANCOMYCIN 1,250 MG in DEXTROSE 5%-WATER - 250 ML IVPB SCH (18:01)
[2018-05-01] MEDS: DONEPEZIL HCL 10 MG TABLET (FP) GT SCH (21:43)
[2018-05-02] MEDS: MEROPENEM 1 GM in DEXTROSE 5%-WATER 100 ML IVPB SCH ×3 (02:20→17:10)
[2018-05-02] MEDS: CEFTAZIDIME PENTAHYDRATE 1 GM in DEXTROSE 5%-WATER - 50 ML IVPB SCH ×2 (02:20→09:49)
[2018-05-02] MEDS: FUROSEMIDE 40 MG/4 ML INJECTABLE VIAL IVPUSH SCH ×2 (06:17→15:08)
[2018-05-02] MEDS ORDERED: PT OWN MED DRAWER 7, Y5N ONE ×6 (06:37→22:33)
[2018-05-02] MEDS: ALBUTEROL SO4 2.5/IPRATROPIUM 0.5 INH SOL 3 ML VIAL.NEB. NEB SCH ×4 (07:50→20:06)
[2018-05-02 08:02] LABS: BASO % 0.6 % (0-2.0); HEMATOCRIT 29.1 % (35.4-49); HEMOGLOBIN 8.7 GM/dL (11.7-16.9); MCH 23.6 pg (25.7-33.7); MEAN CELL VOLUME 78.5 fl (80-96); MEAN PLT VOLUME 8.9 fl (7.5-11.1); MONO % 9.7 % (3.8-10.2); NEUT % 69.7 % (42.8-82.8); PLATELET COUNT 447 K/MM3 (134-434); RBC 3.71 M/mm3 (4.00-5.60); RDW 19.5 % (11.9-15.9); WHITE BLOOD COUNT 19.9 K/mm3 (4.0-10.0)
[2018-05-02] MEDS: AMINO ACIDS/PROTEIN HYDROLYS 30 ML LIQUID.PKT PO SCH ×2 (08:38→17:10)
[2018-05-02] MEDS: ACETAMINOPHEN 650 MG/20.3 ML ORAL SOLUTION (CUPS) PO PRN (08:39)
[2018-05-02 08:57] LABS: ANION GAP 6 MMOL/L (8-16); BLOOD UREA NITROGEN 48 mg/dL (7-18); CALCIUM 7.3 mg/dL (8.5-10.1); CHLORIDE 112 mmol/L (98-107); CO2 32 mmol/L (21-32); CREATININE 0.7 mg/dL (0.55-1.3); GLUCOSE,RANDOM 119 mg/dL (74-106); POTASSIUM 3.5 mmol/L (3.5-5.1); SODIUM 149 mmol/L (136-145)
[2018-05-02] MEDS: POTASSIUM CHLORIDE ORAL LIQUID 20 MEQ/15 ML PO SCH (09:48)
[2018-05-02] MEDS: CARBIDOPA/LEVODOPA 25/100 TABLET (FP) GT SCH ×2 (09:49→21:02)
[2018-05-02] MEDS: RANITIDINE HCL 150 MG/10 ML UNIT-DOSE GT SCH (09:49)
[2018-05-02] MEDS: ZINC SULFATE 220 MG CAPSULE (FP) PO SCH (09:49)
[2018-05-02] MEDS: MULTIVITAMINS (DAILY MVI) TABLET (FP) PO SCH (09:49)
[2018-05-02] MEDS: ASCORBIC ACID 500 MG TABLET (FP) GT SCH (09:49)
[2018-05-02] MEDS: CALCIUM CARBONATE SUSPENSION - 500 MG/5 ML ML PEG SCH ×2 (09:50→21:03)
[2018-05-02] MEDS: COLLAGENASE CLOSTRIDIUM HIST. 30 GRAMS TUBE TP SCH (10:04)
[2018-05-02 10:52] LABS: INR 1.97 (0.83-1.09); PROTHROMBIN TIME (PATIENT) 23.4 SEC (9.7-13.0)
--- NOTE | 2018-05-02 11:32 | PN ---
Progress Note, Physician Chief Complaint: sepsis History of Present Illness: NAD on mechanical vent Seen by ID On IV abx Microbiology 04/28/18 07:45 Blood - Peripheral Venous Blood Culture - Preliminary NO GROWTH OBTAINED AFTER 96 HOURS, INCUBATION TO CONTINUE FOR 1 DAYS. 04/28/18 07:30 Blood - Peripheral Venous Blood Culture - Preliminary NO GROWTH OBTAINED AFTER 96 HOURS, INCUBATION TO CONTINUE FOR 1 DAYS. 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 Acinetobacter Baumannii/Haemol Mr S Aureus Enterococcus Faecalis Enterococcus Raffinosus Pending Organism 04/24/18 20:00 Blood - Peripheral Venous Blood Culture - Final Pseudomonas Aeruginosa 04/24/18 20:16 Urine - Urine - Catheterized Urine Culture - Final febrile overnight Already evaluated by Vascular surgery- no recommendation for surgical debridement of pressure ulcers at this time Evaluated by Ortho- also recommended no surgical intervention at this time - Current Medication List Current Medications: Active Medications Acetaminophen (Tylenol Oral Solution -) 650 mg PO Q6H PRN PRN Reason: FEVER Last Admin: 05/02/18 08:39 Dose: 650 mg Albuterol/Ipratropium (Duoneb -) 1 amp NEB RQID [facility] Last Admin: 05/02/18 07:50 Dose: 1 amp Amino Acids (Prosource No Carb Liquid Pkt) 30 ml PO BID@0800,1730 [facility] Last Admin: 05/02/18 08:38 Dose: 30 ml Ascorbic Acid (Vitamin C -) 500 mg GT DAILY [facility] Last Admin: 05/02/18 09:49 Dose: 500 mg Calcium Carbonate (Calcium Carb Oral Suspension -) 500 mg PEG BID [facility] Last Admin: 05/02/18 09:50 Dose: 500 mg Carbidopa/Levodopa (Sinemet 25/100 -) 1 each GT BID [facility] Last Admin: 05/02/18 09:49 Dose: 1 each Collagenase (Santyl -) 1 applic TP DAILY [facility]; Protocol Last Admin: 05/02/18 10:04 Dose: 1 applic Donepezil HCl (Aricept -) 10 mg GT HS [facility] Last Admin: 05/01/18 21:43 Dose: 10 mg Furosemide (Lasix Injection -) 40 mg IVPUSH BID@0600,1400 [facility] Last Admin: 05/02/18 06:17 Dose: 40 mg Vancomycin HCl 1,250 mg/ (Dextrose) 250 mls @ 166.667 mls/hr IVPB Q24H [facility]; Protocol Last Admin: 05/01/18 18:01 Dose: 166.667 mls/hr Meropenem 1 gm/ Dextrose 100 mls @ 200 mls/hr IVPB Q8H-IV [facility] Last Admin: 05/02/18 10:25 Dose: 200 mls/hr Ceftazidime 1 gm/ Dextrose 50 mls @ 100 mls/hr IVPB Q8H-IV [facility] Last Admin: 05/02/18 09:49 Dose: 100 mls/hr Multivitamins/Minerals/Vitamin C (Tab-A-Vit -) 1 tab PO DAILY [facility] Last Admin: 05/02/18 09:49 Dose: 1 tab Oxycodone HCl (Roxicodone -) 5 mg GT Q6H PRN PRN Reason: PAIN LEVEL 6-10 Last Admin: 04/30/18 09:16 Dose: 5 mg Potassium Chloride (Potassium Chloride Oral Liquid) 40 meq PO DAILY [facility] Last Admin: 05/02/18 09:48 Dose: 40 meq Ranitidine HCl (Zantac Oral Solution -) 150 mg GT DAILY [facility] Last Admin: 05/02/18 09:49 Dose: 150 mg Sodium Hypochlorite (Dakin's Solution 0.25% (Half-Strength) -) 1 applic TP DAILY [facility] Last Admin: 05/01/18 11:19 Dose: 1 applic Warfarin Sodium (Coumadin -) 3 mg GT DAILY@1800 [facility] Last Admin: 05/01/18 17:05 Dose: 3 mg Zinc Sulfate (Orazinc -) 220 mg PO DAILY [facility] Last Admin: 05/02/18 09:49 Dose: 220 mg - Objective Vital Signs: Vital Signs Temperature 100.1 F H 05/02/18 09:00 Pulse Rate 88 05/02/18 09:00 Respiratory Rate 15 05/02/18 10:01 Blood Pressure 96/58 L 05/02/18 09:00 O2 Sat by Pulse Oximetry (%) 95 05/02/18 10:00 Cardiovascular: Yes: Regular Rate and Rhythm Respiratory: Yes: Mechanically Ventilated Gastrointestinal: Yes: Normal Bowel Sounds, Soft, Abdomen, Obese ...Rectal Exam: Yes: Other (rectal tube for chronic diarrhea) Edema: Yes (generalized) Neurological: Yes: Pre-Existing Deficit Labs: CBC, BMP 05/02/18 07:49 05/02/18 07:49 INR, PTT INR 1.97 (0.83-1.09) H 05/02/18 07:49 Problem List - Problems (1) Sepsis Assessment/Plan: culture: Microbiology 04/28/18 07:45 Blood - Peripheral Venous Blood Culture - Preliminary NO GROWTH OBTAINED AFTER 72 HOURS, INCUBATION TO CONTINUE FOR 2 DAYS. 04/28/18 07:30 Blood - Peripheral Venous Blood Culture - Preliminary NO GROWTH OBTAINED AFTER 72 HOURS, INCUBATION TO CONTINUE FOR 2 DAYS. 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 Acinetobacter Baumannii/Haemol Mr S Aureus Enterococcus Faecalis Enterococcus Raffinosus Pending Organism 04/24/18 20:00 Blood - Peripheral Venous Blood Culture - Final Pseudomonas Aeruginosa 04/24/18 20:16 Urine - Urine - Catheterized Urine Culture - Final -IV abx -ID on board -febrile overnight -repeat LA normal -monitor WBC -rechecking cdiff Code(s): A41.9 - SEPSIS, UNSPECIFIED ORGANISM (2) Chronic respiratory failure Assessment/Plan: -mechanical vent -Pulmonary on board -Bronchodilators -not a candidate for weaning at this time Code(s): J96.10 - CHRONIC RESPIRATORY FAILURE, UNSP W HYPOXIA OR HYPERCAPNIA Qualifiers: Respiratory failure complication: hypoxia Qualified Code(s): J96.11 - Chronic respiratory failure with hypoxia (3) Pressure ulcer Assessment/Plan: -multiple wounds -2/2 to poor nutritional status -offloading -Santyl -Seen by Vascular and orthopedic surgery,no recommendation for surgical debridement of pressure ulcers at this time -prosource bid Code(s): L89.90 - PRESSURE ULCER OF UNSPECIFIED SITE, UNSPECIFIED STAGE (4) UTI (lower urinary tract infection) Assessment/Plan: -ID on baord -IV abx -febrile Code(s): N39.0 - URINARY TRACT INFECTION, SITE NOT SPECIFIED (5) Ventilator dependent Code(s): Z99.11 - DEPENDENCE ON RESPIRATOR [VENTILATOR] STATUS (6) Anemia Assessment/Plan: -chronic -Iron profile pending -thyroid profile, B 12, folate unremarkable -stool OB negative -transfuse if Hg <7.0 to avoid fluid overload Code(s): D64.9 - ANEMIA, UNSPECIFIED (7) Generalized edema Assessment/Plan: 2/2 -hypoalbuminemia -give furosemide 40 mg IVP once now, then change to 40 mg IVP BID Code(s): R60.1 - GENERALIZED EDEMA Assessment/Plan see problem list Overall poor prognosis palliative consult
[2018-05-02] MEDS: SODIUM HYPOCHLORITE 0.25%- 473 ML BULK BOTTLE TP SCH (12:00)
--- NOTE | 2018-05-02 12:25 | PN ---
Progress Note (short form) - Note Progress Note: PULMONARY Vented, unresponsive. Low grade temps. Vital Signs Period Temp Pulse Resp BP Sys/Limon Pulse Ox Last 24 Hr 98.5 F-100.1 F 88-95 12-26 96-108/55-66 95-100 Gen: vented, unresponsive Heart: RRR Lung: scattered rhonchi Abd: soft, nontender Ext: + edema CBC, BMP 05/02/18 07:49 05/02/18 07:49 Active Medications Acetaminophen (Tylenol Oral Solution -) 650 mg PO Q6H PRN PRN Reason: FEVER Last Admin: 05/02/18 08:39 Dose: 650 mg Albuterol/Ipratropium (Duoneb -) 1 amp NEB RQID [facility] Last Admin: 05/02/18 07:50 Dose: 1 amp Amino Acids (Prosource No Carb Liquid Pkt) 30 ml PO BID@0800,1730 [facility] Last Admin: 05/02/18 08:38 Dose: 30 ml Ascorbic Acid (Vitamin C -) 500 mg GT DAILY [facility] Last Admin: 05/02/18 09:49 Dose: 500 mg Calcium Carbonate (Calcium Carb Oral Suspension -) 500 mg PEG BID [facility] Last Admin: 05/02/18 09:50 Dose: 500 mg Carbidopa/Levodopa (Sinemet 25/100 -) 1 each GT BID [facility] Last Admin: 05/02/18 09:49 Dose: 1 each Collagenase (Santyl -) 1 applic TP DAILY [facility]; Protocol Last Admin: 05/02/18 10:04 Dose: 1 applic Donepezil HCl (Aricept -) 10 mg GT HS [facility] Last Admin: 05/01/18 21:43 Dose: 10 mg Furosemide (Lasix Injection -) 40 mg IVPUSH BID@0600,1400 [facility] Last Admin: 05/02/18 06:17 Dose: 40 mg Vancomycin HCl 1,250 mg/ (Dextrose) 250 mls @ 166.667 mls/hr IVPB Q24H [facility]; Protocol Last Admin: 05/01/18 18:01 Dose: 166.667 mls/hr Meropenem 1 gm/ Dextrose 100 mls @ 200 mls/hr IVPB Q8H-IV [facility] Last Admin: 05/02/18 10:25 Dose: 200 mls/hr Ceftazidime 1 gm/ Dextrose 50 mls @ 100 mls/hr IVPB Q8H-IV [facility] Last Admin: 05/02/18 09:49 Dose: 100 mls/hr Multivitamins/Minerals/Vitamin C (Tab-A-Vit -) 1 tab PO DAILY [facility] Last Admin: 05/02/18 09:49 Dose: 1 tab Oxycodone HCl (Roxicodone -) 5 mg GT Q6H PRN PRN Reason: PAIN LEVEL 6-10 Last Admin: 04/30/18 09:16 Dose: 5 mg Potassium Chloride (Potassium Chloride Oral Liquid) 40 meq PO DAILY [facility] Last Admin: 05/02/18 09:48 Dose: 40 meq Ranitidine HCl (Zantac Oral Solution -) 150 mg GT DAILY [facility] Last Admin: 05/02/18 09:49 Dose: 150 mg Sodium Hypochlorite (Dakin's Solution 0.25% (Half-Strength) -) 1 applic TP DAILY [facility] Last Admin: 05/01/18 11:19 Dose: 1 applic Warfarin Sodium (Coumadin -) 3 mg GT DAILY@1800 [facility] Last Admin: 05/01/18 17:05 Dose: 3 mg Zinc Sulfate (Orazinc -) 220 mg PO DAILY [facility] Last Admin: 05/02/18 09:49 Dose: 220 mg A/P Chronic Respiratory Failure Decubitus Ulcer Infection UTI Gram Negative Bacteremia Sepsis Lactic Acidosis LV Diastolic Dysfunction Atrial Fibrillation h/o CVA Parkinsons Dementia - continue antibiotics - inhaled bronchodilators - continue volume assist control - poor candidate for weaning due to mental status - replete lytes - enteral feeds - DVT/GI prophylaxis
[2018-05-02] MEDS: VANCOMYCIN 1,250 MG in DEXTROSE 5%-WATER - 250 ML IVPB SCH (14:22)
--- NOTE | 2018-05-02 15:13 | PN ---
Progress Note, Physician History of Present Illness: Pt remains unresponsive. WBC increasing, now with fever. Persistent loose stool in rectal tube. - Current Medication List Current Medications: Active Medications Acetaminophen (Tylenol Oral Solution -) 650 mg PO Q6H PRN PRN Reason: FEVER Last Admin: 05/02/18 08:39 Dose: 650 mg Albuterol/Ipratropium (Duoneb -) 1 amp NEB RQID [facility] Last Admin: 05/02/18 07:50 Dose: 1 amp Amino Acids (Prosource No Carb Liquid Pkt) 30 ml PO BID@0800,1730 [facility] Last Admin: 05/02/18 08:38 Dose: 30 ml Ascorbic Acid (Vitamin C -) 500 mg GT DAILY [facility] Last Admin: 05/02/18 09:49 Dose: 500 mg Calcium Carbonate (Calcium Carb Oral Suspension -) 500 mg PEG BID [facility] Last Admin: 05/02/18 09:50 Dose: 500 mg Carbidopa/Levodopa (Sinemet 25/100 -) 1 each GT BID [facility] Last Admin: 05/02/18 09:49 Dose: 1 each Collagenase (Santyl -) 1 applic TP DAILY [facility]; Protocol Last Admin: 05/02/18 10:04 Dose: 1 applic Donepezil HCl (Aricept -) 10 mg GT HS [facility] Last Admin: 05/01/18 21:43 Dose: 10 mg Furosemide (Lasix Injection -) 40 mg IVPUSH BID@0600,1400 [facility] Last Admin: 05/02/18 06:17 Dose: 40 mg Vancomycin HCl 1,250 mg/ (Dextrose) 250 mls @ 166.667 mls/hr IVPB Q24H [facility]; Protocol Last Admin: 05/02/18 14:22 Dose: 166.667 mls/hr Meropenem 1 gm/ Dextrose 100 mls @ 200 mls/hr IVPB Q8H-IV [facility] Last Admin: 05/02/18 10:25 Dose: 200 mls/hr Ceftazidime 1 gm/ Dextrose 50 mls @ 100 mls/hr IVPB Q8H-IV [facility] Last Admin: 05/02/18 09:49 Dose: 100 mls/hr Multivitamins/Minerals/Vitamin C (Tab-A-Vit -) 1 tab PO DAILY [facility] Last Admin: 05/02/18 09:49 Dose: 1 tab Oxycodone HCl (Roxicodone -) 5 mg GT Q6H PRN PRN Reason: PAIN LEVEL 6-10 Last Admin: 04/30/18 09:16 Dose: 5 mg Potassium Chloride (Potassium Chloride Oral Liquid) 40 meq PO DAILY [facility] Last Admin: 05/02/18 09:48 Dose: 40 meq Ranitidine HCl (Zantac Oral Solution -) 150 mg GT DAILY [facility] Last Admin: 05/02/18 09:49 Dose: 150 mg Sodium Hypochlorite (Dakin's Solution 0.25% (Half-Strength) -) 1 applic TP DAILY [facility] Last Admin: 05/02/18 12:00 Dose: 1 applic Warfarin Sodium (Coumadin -) 3 mg GT DAILY@1800 [facility] Last Admin: 05/01/18 17:05 Dose: 3 mg Zinc Sulfate (Orazinc -) 220 mg PO DAILY [facility] Last Admin: 05/02/18 09:49 Dose: 220 mg - Objective Vital Signs: Vital Signs Temperature 100.1 F H 05/02/18 09:00 Pulse Rate 88 05/02/18 09:00 Respiratory Rate 15 05/02/18 10:01 Blood Pressure 96/58 L 05/02/18 09:00 O2 Sat by Pulse Oximetry (%) 95 05/02/18 10:00 Cardiovascular: Yes: Regular Rate and Rhythm Respiratory: Yes: Diminished Gastrointestinal: Yes: Normal Bowel Sounds, Soft, Abdomen, Obese Edema: Yes Wound/Incision: Yes: Dressing Dry and Intact (Rt elbow with wound/erythema Sacral DU) Neurological: Yes: Unresponsive Labs: CBC, BMP 05/02/18 07:49 05/02/18 07:49 INR, PTT INR 1.97 (0.83-1.09) H 05/02/18 07:49 Microbiology 04/28/18 07:45 Blood - Peripheral Venous Blood Culture - Preliminary NO GROWTH OBTAINED AFTER 96 HOURS, INCUBATION TO CONTINUE FOR 1 DAYS. 04/28/18 07:30 Blood - Peripheral Venous Blood Culture - Preliminary NO GROWTH OBTAINED AFTER 96 HOURS, INCUBATION TO CONTINUE FOR 1 DAYS. 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 Acinetobacter Baumannii/Haemol Mr S Aureus Enterococcus Faecalis Enterococcus Raffinosus Pending Organism 04/24/18 20:00 Blood - Peripheral Venous Blood Culture - Final Pseudomonas Aeruginosa 04/24/18 20:16 Urine - Urine - Catheterized Urine Culture - Final Problem List - Problems (1) Anemia Code(s): D64.9 - ANEMIA, UNSPECIFIED (2) Electrolyte abnormality Code(s): E87.8 - OTH DISORDERS OF ELECTROLYTE AND FLUID BALANCE, NEC (3) Sepsis Code(s): A41.9 - SEPSIS, UNSPECIFIED ORGANISM (4) A-fib Code(s): I48.91 - UNSPECIFIED ATRIAL FIBRILLATION Qualifiers: Atrial fibrillation type: chronic Qualified Code(s): I48.2 - Chronic atrial fibrillation (5) Acute on chronic diastolic CHF (congestive heart failure) Code(s): I50.33 - ACUTE ON CHRONIC DIASTOLIC (CONGESTIVE) HEART FAILURE (6) CHF (congestive heart failure) Code(s): I50.9 - HEART FAILURE, UNSPECIFIED (7) Chronic osteomyelitis Code(s): M86.60 - OTHER CHRONIC OSTEOMYELITIS, UNSPECIFIED SITE (8) Chronic respiratory failure Code(s): J96.10 - CHRONIC RESPIRATORY FAILURE, UNSP W HYPOXIA OR HYPERCAPNIA Qualifiers: Respiratory failure complication: hypoxia Qualified Code(s): J96.11 - Chronic respiratory failure with hypoxia (9) Dementia Code(s): F03.90 - UNSPECIFIED DEMENTIA WITHOUT BEHAVIORAL DISTURBANCE Qualifiers: Dementia type: Parkinson's disease Dementia behavioral disturbance: with behavioral disturbance Qualified Code(s): G20 - Parkinson's disease (10) Diarrhea Code(s): R19.7 - DIARRHEA, UNSPECIFIED Qualifiers: Diarrhea type: unspecified type Qualified Code(s): R19.7 - Diarrhea, unspecified Assessment/Plan Pseudomonas bacteremia/Sepsis Polymicrobial Rt elbow/Sacral DU infection - ESBL+ E.coli/MRSA/Enterococcus Chronic OM Leukocytosis - increasing wbc trend Diarrhea Resp Failure s/p tracheostomy -- d/c Ceftazidime -- cont. Meropenem/Vancomycin IV -- will add vancomycin gt empirically while awaiting C diff PCR results -- f/u Blood cultures still pending -- monitor wbc trend/vitals -- surgery/Orthopedic consults noted -- continue wound care, offloading poor prognosis overall
[2018-05-02] MEDS: VANCOMYCIN 250 MG/5 ML ORAL SOLUTION PO SCH (17:04)
[2018-05-02] MEDS: WARFARIN NA 3 MG TABLET GT SCH (17:10)
[2018-05-02] MEDS: DONEPEZIL HCL 10 MG TABLET (FP) GT SCH (21:03)
[2018-05-03] MEDS: VANCOMYCIN 250 MG/5 ML ORAL SOLUTION PO SCH ×5 (00:10→23:15)
[2018-05-03] MEDS: MEROPENEM 1 GM in DEXTROSE 5%-WATER 100 ML IVPB SCH ×3 (01:46→17:00)
[2018-05-03 06:21] LABS: BASO % 0.3 % (0-2.0); HEMATOCRIT 28.1 % (35.4-49); HEMOGLOBIN 8.4 GM/dL (11.7-16.9); MCH 23.3 pg (25.7-33.7); MCHC 29.8 g/dl (32.0-35.9); MEAN PLT VOLUME 8.8 fl (7.5-11.1); MONO % 8.9 % (3.8-10.2); NEUT % 71.8 % (42.8-82.8); PLATELET COUNT 409 K/MM3 (134-434); RDW 19.1 % (11.9-15.9)
[2018-05-03] MEDS: FUROSEMIDE 40 MG/4 ML INJECTABLE VIAL IVPUSH SCH ×2 (06:35→18:01)
[2018-05-03 06:47] LABS: ANION GAP 7 MMOL/L (8-16); BLOOD UREA NITROGEN 49 mg/dL (7-18); CHLORIDE 113 mmol/L (98-107); CO2 31 mmol/L (21-32); CREATININE 0.6 mg/dL (0.55-1.3); GLUCOSE,RANDOM 122 mg/dL (74-106); POTASSIUM 3.8 mmol/L (3.5-5.1); SODIUM 151 mmol/L (136-145)
[2018-05-03 06:52] LABS: INR 2.14 (0.83-1.09); PROTHROMBIN TIME (PATIENT) 25.4 SEC (9.7-13.0)
[2018-05-03 07:13] LABS: CALCIUM 6.9 mg/dL (8.5-10.1)
[2018-05-03 07:28] LABS: WHITE BLOOD COUNT 20.5 K/mm3 (4.0-10.0)
[2018-05-03] MEDS: AMINO ACIDS/PROTEIN HYDROLYS 30 ML LIQUID.PKT PO SCH ×2 (08:34→18:03)
[2018-05-03] MEDS: ALBUTEROL SO4 2.5/IPRATROPIUM 0.5 INH SOL 3 ML VIAL.NEB. NEB SCH ×4 (09:00→21:30)
[2018-05-03 10:09] LABS: ANISOCYTOSIS 1+; MACROCYTOSIS 0; PLATELET ESTIMATE NORMAL; TARGET CELLS 1+; TEAR DROP CELLS 1+
[2018-05-03] MEDS ORDERED: PT OWN MED DRAWER 7, Y5N ONE (11:27)
[2018-05-03] MEDS: oxyCODONE HCL 5 MG TABLET GT PRN (11:33)
[2018-05-03] MEDS: RANITIDINE HCL 150 MG/10 ML UNIT-DOSE GT SCH (11:34)
[2018-05-03] MEDS: CALCIUM CARBONATE SUSPENSION - 500 MG/5 ML ML PEG SCH ×2 (11:35→22:41)
[2018-05-03] MEDS: SODIUM HYPOCHLORITE 0.25%- 473 ML BULK BOTTLE TP SCH (11:36)
[2018-05-03] MEDS: COLLAGENASE CLOSTRIDIUM HIST. 30 GRAMS TUBE TP SCH (11:37)
[2018-05-03] MEDS: ASCORBIC ACID 500 MG TABLET (FP) GT SCH (11:37)
[2018-05-03] MEDS: CARBIDOPA/LEVODOPA 25/100 TABLET (FP) GT SCH ×2 (11:37→22:42)
[2018-05-03] MEDS: POTASSIUM CHLORIDE ORAL LIQUID 20 MEQ/15 ML PO SCH (11:37)
[2018-05-03] MEDS: MULTIVITAMINS (DAILY MVI) TABLET (FP) PO SCH (11:37)
[2018-05-03] MEDS: ZINC SULFATE 220 MG CAPSULE (FP) PO SCH (11:37)
--- NOTE | 2018-05-03 13:56 | PN ---
Progress Note, Physician History of Present Illness: no changes vented lethargic wound infections no change in mental status - Current Medication List Current Medications: Active Medications Acetaminophen (Tylenol Oral Solution -) 650 mg PO Q6H PRN PRN Reason: FEVER Last Admin: 05/02/18 08:39 Dose: 650 mg Albuterol/Ipratropium (Duoneb -) 1 amp NEB RQID [facility] Last Admin: 05/03/18 09:00 Dose: 1 amp Amino Acids (Prosource No Carb Liquid Pkt) 30 ml PO BID@0800,1730 [facility] Last Admin: 05/03/18 08:34 Dose: 30 ml Ascorbic Acid (Vitamin C -) 500 mg GT DAILY [facility] Last Admin: 05/03/18 11:37 Dose: 500 mg Calcium Carbonate (Calcium Carb Oral Suspension -) 500 mg PEG BID [facility] Last Admin: 05/03/18 11:35 Dose: 500 mg Carbidopa/Levodopa (Sinemet 25/100 -) 1 each GT BID [facility] Last Admin: 05/03/18 11:37 Dose: 1 each Collagenase (Santyl -) 1 applic TP DAILY [facility]; Protocol Last Admin: 05/03/18 11:37 Dose: 1 applic Donepezil HCl (Aricept -) 10 mg GT HS [facility] Last Admin: 05/02/18 21:03 Dose: 10 mg Furosemide (Lasix Injection -) 40 mg IVPUSH BID@0600,1400 [facility] Last Admin: 05/03/18 06:35 Dose: 40 mg Vancomycin HCl 1,250 mg/ (Dextrose) 250 mls @ 166.667 mls/hr IVPB Q24H [facility]; Protocol Last Admin: 05/02/18 14:22 Dose: 166.667 mls/hr Meropenem 1 gm/ Dextrose 100 mls @ 200 mls/hr IVPB Q8H-IV [facility] Last Admin: 05/03/18 11:36 Dose: 200 mls/hr Multivitamins/Minerals/Vitamin C (Tab-A-Vit -) 1 tab PO DAILY [facility] Last Admin: 05/03/18 11:37 Dose: 1 tab Potassium Chloride (Potassium Chloride Oral Liquid) 40 meq PO DAILY [facility] Last Admin: 05/03/18 11:37 Dose: 40 meq Ranitidine HCl (Zantac Oral Solution -) 150 mg GT DAILY [facility] Last Admin: 05/03/18 11:34 Dose: 150 mg Sodium Hypochlorite (Dakin's Solution 0.25% (Half-Strength) -) 1 applic TP DAILY [facility] Last Admin: 05/03/18 11:36 Dose: 1 applic Vancomycin HCl (Vancomycin Oral Solution) 125 mg PO Q6HPO [facility] Last Admin: 05/03/18 11:38 Dose: 125 mg Warfarin Sodium (Coumadin -) 3 mg GT DAILY@1800 [facility] Last Admin: 05/02/18 17:10 Dose: 3 mg Zinc Sulfate (Orazinc -) 220 mg PO DAILY [facility] Last Admin: 05/03/18 11:37 Dose: 220 mg - Objective Vital Signs: Vital Signs Temperature 99.0 F 05/03/18 06:00 Pulse Rate 98 H 05/03/18 06:00 Respiratory Rate 16 05/03/18 10:25 Blood Pressure 116/52 L 05/03/18 06:00 O2 Sat by Pulse Oximetry (%) 95 05/02/18 10:00 Constitutional: Yes: Other Cardiovascular: Yes: Regular Rate and Rhythm Respiratory: Yes: Mechanically Ventilated, Other (tracheostomy) Gastrointestinal: Yes: Normal Bowel Sounds, Soft Extremities: Yes: Other Integumentary: Yes: Erythema, Other Wound/Incision: Yes: Other (multiple wounds at various places) Labs: CBC, BMP 05/03/18 05:50 05/03/18 05:50 INR, PTT INR 2.14 (0.83-1.09) H 05/03/18 05:50 Assessment/Plan Assessment/Plan Problem List - Problems (1) A-fib Code(s): I48.91 - UNSPECIFIED ATRIAL FIBRILLATION Qualifiers: Atrial fibrillation type: chronic Qualified Code(s): I48.2 - Chronic atrial fibrillation (2) CHF (congestive heart failure) Code(s): I50.9 - HEART FAILURE, UNSPECIFIED (3) Chronic atrial fibrillation Code(s): I48.2 - CHRONIC ATRIAL FIBRILLATION (4) Chronic osteomyelitis Code(s): M86.60 - OTHER CHRONIC OSTEOMYELITIS, UNSPECIFIED SITE (5) Chronic respiratory failure Code(s): J96.10 - CHRONIC RESPIRATORY FAILURE, UNSP W HYPOXIA OR HYPERCAPNIA Qualifiers: Respiratory failure complication: hypoxia Qualified Code(s): J96.11 - Chronic respiratory failure with hypoxia (6) Dementia Code(s): F03.90 - UNSPECIFIED DEMENTIA WITHOUT BEHAVIORAL DISTURBANCE Qualifiers: Dementia type: Parkinson's disease Dementia behavioral disturbance: with behavioral disturbance Qualified Code(s): G20 - Parkinson's disease (7) Hyperlipemia Code(s): E78.5 - HYPERLIPIDEMIA, UNSPECIFIED (8) PEG (percutaneous endoscopic gastrostomy) adjustment/replacement/removal Code(s): Z43.1 - ENCOUNTER FOR ATTENTION TO GASTROSTOMY (9) Parkinson disease Code(s): G20 - PARKINSON'S DISEASE (10) Pleural effusion Code(s): J90 - PLEURAL EFFUSION, NOT ELSEWHERE CLASSIFIED (11) Sacral decubitus ulcer Code(s): L89.159 - PRESSURE ULCER OF SACRAL REGION, UNSPECIFIED STAGE Qualifiers: Qualified Code(s): L89.153 - Pressure ulcer of sacral region, stage 3 (12) Ventilator dependent Code(s): Z99.11 - DEPENDENCE ON RESPIRATOR [VENTILATOR] STATUS (13) Sepsis Code(s): A41.9 - SEPSIS, UNSPECIFIED ORGANISM (14) Sepsis Code(s): A41.9 - SEPSIS, UNSPECIFIED ORGANISM (15) Lactate blood increase Code(s): R79.89 - OTHER SPECIFIED ABNORMAL FINDINGS OF BLOOD CHEMISTRY 16 gm negative bacteremia 17 wound infection plan continue abx awaiting for final decisions once we have will make final plans patient doing poorly
--- NOTE | 2018-05-03 14:59 | PN ---
Progress Note (short form) - Note Progress Note: Vented, unresponsive. No acute change in overall condition. Intake & Output 04/30/18 05/01/18 05/02/18 05/03/18 23:59 23:59 23:59 23:59 Intake Total 3040 3250 2320 1100 Output Total 2050 1900 800 400 Balance 990 1350 1520 700 Weight 271 lb 9.6 oz Last Vital Signs Temp Pulse Resp BP Pulse Ox 99.0 F 98 H 16 116/52 L 95 05/03/18 06:00 05/03/18 06:00 05/03/18 10:25 05/03/18 06:00 05/02/18 10:00 Active Medications Acetaminophen (Tylenol Oral Solution -) 650 mg PO Q6H PRN PRN Reason: FEVER Last Admin: 05/02/18 08:39 Dose: 650 mg Albuterol/Ipratropium (Duoneb -) 1 amp NEB RQID [facility] Last Admin: 05/03/18 09:00 Dose: 1 amp Amino Acids (Prosource No Carb Liquid Pkt) 30 ml PO BID@0800,1730 [facility] Last Admin: 05/03/18 08:34 Dose: 30 ml Ascorbic Acid (Vitamin C -) 500 mg GT DAILY [facility] Last Admin: 05/03/18 11:37 Dose: 500 mg Calcium Carbonate (Calcium Carb Oral Suspension -) 500 mg PEG BID [facility] Last Admin: 05/03/18 11:35 Dose: 500 mg Carbidopa/Levodopa (Sinemet 25/100 -) 1 each GT BID [facility] Last Admin: 05/03/18 11:37 Dose: 1 each Collagenase (Santyl -) 1 applic TP DAILY [facility]; Protocol Last Admin: 05/03/18 11:37 Dose: 1 applic Donepezil HCl (Aricept -) 10 mg GT HS [facility] Last Admin: 05/02/18 21:03 Dose: 10 mg Furosemide (Lasix Injection -) 40 mg IVPUSH BID@0600,1400 [facility] Last Admin: 05/03/18 06:35 Dose: 40 mg Vancomycin HCl 1,250 mg/ (Dextrose) 250 mls @ 166.667 mls/hr IVPB Q24H [facility]; Protocol Last Admin: 05/02/18 14:22 Dose: 166.667 mls/hr Meropenem 1 gm/ Dextrose 100 mls @ 200 mls/hr IVPB Q8H-IV [facility] Last Admin: 05/03/18 11:36 Dose: 200 mls/hr Multivitamins/Minerals/Vitamin C (Tab-A-Vit -) 1 tab PO DAILY [facility] Last Admin: 05/03/18 11:37 Dose: 1 tab Potassium Chloride (Potassium Chloride Oral Liquid) 40 meq PO DAILY [facility] Last Admin: 05/03/18 11:37 Dose: 40 meq Ranitidine HCl (Zantac Oral Solution -) 150 mg GT DAILY [facility] Last Admin: 05/03/18 11:34 Dose: 150 mg Sodium Hypochlorite (Dakin's Solution 0.25% (Half-Strength) -) 1 applic TP DAILY [facility] Last Admin: 05/03/18 11:36 Dose: 1 applic Vancomycin HCl (Vancomycin Oral Solution) 125 mg PO Q6HPO [facility] Last Admin: 05/03/18 11:38 Dose: 125 mg Warfarin Sodium (Coumadin -) 3 mg GT DAILY@1800 [facility] Last Admin: 05/02/18 17:10 Dose: 3 mg Zinc Sulfate (Orazinc -) 220 mg PO DAILY [facility] Last Admin: 05/03/18 11:37 Dose: 220 mg Gen: vented, unresponsive Heart: RRR Lung: scattered rhonchi Abd: soft, nontender Ext: + edema Laboratory Results - last 24 hr 05/03/18 05/03/18 05/03/18 05:50 05:50 05:50 WBC 20.5 H RBC 3.60 L Hgb 8.4 L Hct 28.1 L MCV 78.0 L MCH 23.3 L MCHC 29.8 L RDW 19.1 H Plt Count 409 MPV 8.8 Absolute Neuts (auto) 14.7 H Neutrophils % 71.8 Neutrophils % (Manual) 80.0 Band Neutrophils % 0.0 Lymphocytes % 15.0 Lymphocytes % (Manual) 12.0 D Monocytes % 8.9 Monocytes % (Manual) 0 L D Eosinophils % 4.0 Eosinophils % (Manual) 3.0 D Basophils % 0.3 Basophils % (Manual) 1.0 Myelocytes % (Man) 0 Promyelocytes % (Man) 0 Blast Cells % (Manual) 0 Nucleated RBC % 0 Metamyelocytes 0 Hypochromia 1+ Platelet Estimate Normal Polychromasia 1+ Poikilocytosis 0 Anisocytosis 1+ Microcytosis 1+ Macrocytosis 0 Target Cells 1+ Tear Drop Cells 1+ PT with INR 25.40 H INR 2.14 H Sodium 151 H Potassium 3.8 Chloride 113 H Carbon Dioxide 31 Anion Gap 7 L BUN 49 H Creatinine 0.6 Creat Clearance w eGFR > 60 Random Glucose 122 H Calcium 6.9 L* A/P Chronic Respiratory Failure Decubitus Ulcer Infection UTI Gram Negative Bacteremia Sepsis Lactic Acidosis LV Diastolic Dysfunction Atrial Fibrillation h/o CVA Parkinsons Dementia - continue antibiotics per ID - inhaled bronchodilators - continue volume assist control - poor candidate for weaning due to mental status - replete lytes - enteral feeds - DVT/GI prophylaxis Dr Fernandes
[2018-05-03] MEDS ORDERED: PICC LINE 8 ML FLUSH PROTOCOL IVPUSH PRN (15:07)
--- NOTE | 2018-05-03 15:10 | PN ---
Progress Note, Physician Chief Complaint: patient lost iv access kathy need picc line for acees appreciate ortho consult- no surgical intervention neccesary - Current Medication List Current Medications: Active Medications Acetaminophen (Tylenol Oral Solution -) 650 mg PO Q6H PRN PRN Reason: FEVER Last Admin: 05/02/18 08:39 Dose: 650 mg Albuterol/Ipratropium (Duoneb -) 1 amp NEB RQID [facility] Last Admin: 05/03/18 09:00 Dose: 1 amp Amino Acids (Prosource No Carb Liquid Pkt) 30 ml PO BID@0800,1730 [facility] Last Admin: 05/03/18 08:34 Dose: 30 ml Ascorbic Acid (Vitamin C -) 500 mg GT DAILY [facility] Last Admin: 05/03/18 11:37 Dose: 500 mg Calcium Carbonate (Calcium Carb Oral Suspension -) 500 mg PEG BID [facility] Last Admin: 05/03/18 11:35 Dose: 500 mg Carbidopa/Levodopa (Sinemet 25/100 -) 1 each GT BID [facility] Last Admin: 05/03/18 11:37 Dose: 1 each Collagenase (Santyl -) 1 applic TP DAILY [facility]; Protocol Last Admin: 05/03/18 11:37 Dose: 1 applic Donepezil HCl (Aricept -) 10 mg GT HS [facility] Last Admin: 05/02/18 21:03 Dose: 10 mg Furosemide (Lasix Injection -) 40 mg IVPUSH BID@0600,1400 [facility] Last Admin: 05/03/18 06:35 Dose: 40 mg Vancomycin HCl 1,250 mg/ (Dextrose) 250 mls @ 166.667 mls/hr IVPB Q24H [facility]; Protocol Last Admin: 05/02/18 14:22 Dose: 166.667 mls/hr Meropenem 1 gm/ Dextrose 100 mls @ 200 mls/hr IVPB Q8H-IV [facility] Last Admin: 05/03/18 11:36 Dose: 200 mls/hr Multivitamins/Minerals/Vitamin C (Tab-A-Vit -) 1 tab PO DAILY [facility] Last Admin: 05/03/18 11:37 Dose: 1 tab Potassium Chloride (Potassium Chloride Oral Liquid) 40 meq PO DAILY [facility] Last Admin: 05/03/18 11:37 Dose: 40 meq Ranitidine HCl (Zantac Oral Solution -) 150 mg GT DAILY [facility] Last Admin: 05/03/18 11:34 Dose: 150 mg Sodium Hypochlorite (Dakin's Solution 0.25% (Half-Strength) -) 1 applic TP DAILY [facility] Last Admin: 05/03/18 11:36 Dose: 1 applic Vancomycin HCl (Vancomycin Oral Solution) 125 mg PO Q6HPO [facility] Last Admin: 05/03/18 11:38 Dose: 125 mg Warfarin Sodium (Coumadin -) 3 mg GT DAILY@1800 [facility] Last Admin: 05/02/18 17:10 Dose: 3 mg Zinc Sulfate (Orazinc -) 220 mg PO DAILY [facility] Last Admin: 05/03/18 11:37 Dose: 220 mg - Objective Vital Signs: Vital Signs Temperature 99.0 F 05/03/18 06:00 Pulse Rate 98 H 05/03/18 06:00 Respiratory Rate 16 05/03/18 10:25 Blood Pressure 116/52 L 05/03/18 06:00 O2 Sat by Pulse Oximetry (%) 95 05/02/18 10:00 Constitutional: Yes: Other (unresponsive on vent) Neck: Yes: Other (trach) Cardiovascular: Yes: Regular Rate and Rhythm, S1, S2 Respiratory: Yes: Mechanically Ventilated Gastrointestinal: Yes: Normal Bowel Sounds, Soft, Other ( gtube) ...Rectal Exam: Yes: Other (rectal tube) Edema: Yes Labs: CBC, BMP 05/03/18 05:50 05/03/18 05:50 INR, PTT INR 2.14 (0.83-1.09) H 05/03/18 05:50 Problem List - Problems (1) Sepsis Assessment/Plan: patient sent in for multiple ulcers and inc wbc count-also needs picc line/ central line for access seen by vascular surgery not a candidate for debridement of sacral wounds seen by ortho for elbow wound not surgical intervention needed frequent turn and position iv abx per ID Microbiology 04/24/18 20:35 Elbow - Right Gram Stain - Final 04/24/18 20:35 Elbow - Right Wound Culture - Final Escherichia Coli Esbl Facilities Specialist Acinetobacter Baumannii/Haemol Mr S Aureus Enterococcus Faecalis Enterococcus Raffinosus Pending Organism ceftazidime and meropenem and vacnomcyin inc WBC noted check stool for c diff- today Microbiology 04/24/18 20:35 Elbow - Right Gram Stain - Final 04/24/18 20:35 Elbow - Right Wound Culture - Final Escherichia Coli Esbl Facilities Specialist Acinetobacter Baumannii/Haemol Mr S Aureus Enterococcus Faecalis Enterococcus Raffinosus Pending Organism Code(s): A41.9 - SEPSIS, UNSPECIFIED ORGANISM (2) A-fib Assessment/Plan: on coumadin daily inr Code(s): I48.91 - UNSPECIFIED ATRIAL FIBRILLATION Qualifiers: Atrial fibrillation type: chronic Qualified Code(s): I48.2 - Chronic atrial fibrillation (3) Chronic respiratory failure Assessment/Plan: vent support assist control not a candidate for weaning nebulizer Code(s): J96.10 - CHRONIC RESPIRATORY FAILURE, UNSP W HYPOXIA OR HYPERCAPNIA Qualifiers: Respiratory failure complication: hypoxia Qualified Code(s): J96.11 - Chronic respiratory failure with hypoxia (4) Dementia Assessment/Plan: sinemet and donezipil Code(s): F03.90 - UNSPECIFIED DEMENTIA WITHOUT BEHAVIORAL DISTURBANCE Qualifiers: Dementia type: Parkinson's disease Dementia behavioral disturbance: with behavioral disturbance Qualified Code(s): G20 - Parkinson's disease (5) Electrolyte abnormality Assessment/Plan: potassium repleted magnesium level ordered- normal Code(s): E87.8 - OTH DISORDERS OF ELECTROLYTE AND FLUID BALANCE, NEC
[2018-05-03] MEDS ORDERED: TRIPLE LUMEN FLUSH 4 ML ML IVPUSH PRN (15:23)
[2018-05-03] MEDS: WARFARIN NA 3 MG TABLET GT SCH (18:01)
[2018-05-03] MEDS: VANCOMYCIN 1,250 MG in DEXTROSE 5%-WATER - 250 ML IVPB SCH (18:02)
[2018-05-03] MEDS: DONEPEZIL HCL 10 MG TABLET (FP) GT SCH (22:41)
[2018-05-04] MEDS: MEROPENEM 1 GM in DEXTROSE 5%-WATER 100 ML IVPB SCH ×3 (02:41→18:03)
[2018-05-04] MEDS: VANCOMYCIN 250 MG/5 ML ORAL SOLUTION PO SCH ×3 (06:07→18:03)
[2018-05-04] MEDS: FUROSEMIDE 40 MG/4 ML INJECTABLE VIAL IVPUSH SCH ×2 (06:07→15:20)
[2018-05-04] MEDS ORDERED: INSULIN (NOVOLOG) ASPART 100 UNITS/ML 10ML VIAL ONE (08:00)
[2018-05-04 08:18] LABS: BASO % 0.6 % (0-2.0); EOS % 4.3 % (0-4.5); HEMATOCRIT 29.5 % (35.4-49); HEMOGLOBIN 8.8 GM/dL (11.7-16.9); LYMPH % 14.7 % (8-40); MCH 23.6 pg (25.7-33.7); MCHC 29.6 g/dl (32.0-35.9); MEAN CELL VOLUME 79.7 fl (80-96); NEUT % 71.4 % (42.8-82.8); PLATELET COUNT 438 K/MM3 (134-434); RDW 19.6 % (11.9-15.9); WHITE BLOOD COUNT 18.7 K/mm3 (4.0-10.0)
[2018-05-04 08:21] LABS: INR 1.71 (0.83-1.09); PROTHROMBIN TIME (PATIENT) 20.3 SEC (9.7-13.0)
[2018-05-04] MEDS: AMINO ACIDS/PROTEIN HYDROLYS 30 ML LIQUID.PKT PO SCH ×2 (09:00→18:03)
[2018-05-04] MEDS: ALBUTEROL SO4 2.5/IPRATROPIUM 0.5 INH SOL 3 ML VIAL.NEB. NEB SCH ×4 (09:00→21:00)
[2018-05-04] MEDS ORDERED: PT OWN MED DRAWER 7, Y5N ONE (10:08)
[2018-05-04] MEDS: ASCORBIC ACID 500 MG TABLET (FP) GT SCH (10:11)
[2018-05-04] MEDS: CARBIDOPA/LEVODOPA 25/100 TABLET (FP) GT SCH ×2 (10:11→21:46)
[2018-05-04] MEDS: ZINC SULFATE 220 MG CAPSULE (FP) PO SCH (10:11)
[2018-05-04] MEDS: RANITIDINE HCL 150 MG/10 ML UNIT-DOSE GT SCH (10:11)
[2018-05-04] MEDS: MULTIVITAMINS (DAILY MVI) TABLET (FP) PO SCH (10:11)
[2018-05-04] MEDS: POTASSIUM CHLORIDE ORAL LIQUID 20 MEQ/15 ML PO SCH (10:11)
[2018-05-04] MEDS: CALCIUM CARBONATE SUSPENSION - 500 MG/5 ML ML PEG SCH ×2 (10:12→21:45)
--- NOTE | 2018-05-04 12:13 | PN ---
Progress Note, Physician Chief Complaint: sepsis History of Present Illness: NAD on mechanical vent Seen by ID afebrile overnight Already evaluated by Vascular surgery- no recommendation for surgical debridement of pressure ulcers at this time Evaluated by Ortho- also recommended no surgical intervention at this time - Current Medication List Current Medications: Active Medications Acetaminophen (Tylenol Oral Solution -) 650 mg PO Q6H PRN PRN Reason: FEVER Last Admin: 05/02/18 08:39 Dose: 650 mg Albuterol/Ipratropium (Duoneb -) 1 amp NEB RQID [facility] Last Admin: 05/04/18 09:00 Dose: 1 amp Amino Acids (Prosource No Carb Liquid Pkt) 30 ml PO BID@0800,1730 [facility] Last Admin: 05/04/18 09:00 Dose: 30 ml Ascorbic Acid (Vitamin C -) 500 mg GT DAILY [facility] Last Admin: 05/04/18 10:11 Dose: 500 mg Calcium Carbonate (Calcium Carb Oral Suspension -) 500 mg PEG BID [facility] Last Admin: 05/04/18 10:12 Dose: 500 mg Carbidopa/Levodopa (Sinemet 25/100 -) 1 each GT BID [facility] Last Admin: 05/04/18 10:11 Dose: 1 each Collagenase (Santyl -) 1 applic TP DAILY [facility]; Protocol Last Admin: 05/03/18 11:37 Dose: 1 applic Donepezil HCl (Aricept -) 10 mg GT HS [facility] Last Admin: 05/03/18 22:41 Dose: 10 mg Furosemide (Lasix Injection -) 40 mg IVPUSH BID@0600,1400 [facility] Last Admin: 05/04/18 06:07 Dose: 40 mg IV Flush (Picc Line Flush) 8 ml IVPUSH PRN PRN PRN Reason: Protocol IV Flush (Triple Lumen Flush) 4 ml IVPUSH PRN PRN PRN Reason: Protocol Vancomycin HCl 1,250 mg/ (Dextrose) 250 mls @ 166.667 mls/hr IVPB Q24H [facility]; Protocol Last Admin: 05/03/18 18:02 Dose: 166.667 mls/hr Meropenem 1 gm/ Dextrose 100 mls @ 200 mls/hr IVPB Q8H-IV [facility] Last Admin: 05/04/18 10:14 Dose: 200 mls/hr Multivitamins/Minerals/Vitamin C (Tab-A-Vit -) 1 tab PO DAILY [facility] Last Admin: 05/04/18 10:11 Dose: 1 tab Oxycodone HCl (Roxicodone -) 5 mg GT Q6H PRN PRN Reason: PAIN LEVEL 7 - 10 Potassium Chloride (Potassium Chloride Oral Liquid) 40 meq PO DAILY [facility] Last Admin: 05/04/18 10:11 Dose: 40 meq Ranitidine HCl (Zantac Oral Solution -) 150 mg GT DAILY [facility] Last Admin: 05/04/18 10:11 Dose: 150 mg Sodium Hypochlorite (Dakin's Solution 0.25% (Half-Strength) -) 1 applic TP DAILY [facility] Last Admin: 05/03/18 11:36 Dose: 1 applic Vancomycin HCl (Vancomycin Oral Solution) 125 mg PO Q6HPO [facility] Last Admin: 05/04/18 06:07 Dose: 125 mg Warfarin Sodium (Coumadin -) 5 mg PO DAILY@1800 [facility] Warfarin Sodium (Coumadin -) 3 mg GT DAILY@1800 [facility] Zinc Sulfate (Orazinc -) 220 mg PO DAILY [facility] Last Admin: 05/04/18 10:11 Dose: 220 mg - Objective Vital Signs: Vital Signs Temperature 98.2 F 05/04/18 10:00 Pulse Rate 90 05/04/18 11:02 Respiratory Rate 12 05/04/18 10:01 Blood Pressure 104/74 05/04/18 10:00 O2 Sat by Pulse Oximetry (%) 98 05/04/18 11:02 Constitutional: Yes: Well Nourished, No Distress, Calm Cardiovascular: Yes: Regular Rate and Rhythm Respiratory: Yes: Mechanically Ventilated Gastrointestinal: Yes: Normal Bowel Sounds, Soft, Other (rectal tube) Musculoskeletal: Yes: WNL Extremities: Yes: WNL Edema: Yes (generalized) Neurological: Yes: Pre-Existing Deficit Labs: CBC, BMP 05/04/18 08:00 05/03/18 05:50 INR, PTT INR 1.71 (0.83-1.09) H 05/04/18 07:40 Problem List - Problems (1) Sepsis Assessment/Plan: culture: Microbiology 05/01/18 16:00 Blood - Peripheral Venous Blood Culture - Preliminary NO GROWTH OBTAINED AFTER 48 HOURS, INCUBATION TO CONTINUE FOR 3 DAYS. 05/01/18 16:00 Blood - Peripheral Venous Blood Culture - Preliminary NO GROWTH OBTAINED AFTER 48 HOURS, INCUBATION TO CONTINUE FOR 3 DAYS. 05/01/18 17:15 Stool Clostridium difficile (PCR) - Final 04/28/18 07:45 Blood - Peripheral Venous Blood Culture - Final NO GROWTH AFTER 5 DAYS INCUBATION 04/28/18 07:30 Blood - Peripheral Venous Blood Culture - Final NO GROWTH AFTER 5 DAYS INCUBATION 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 Esbl Pulpit Operator Acinetobacter Baumannii/Haemol Mr S Aureus Enterococcus Faecalis Enterococcus Raffinosus Pending Organism 04/24/18 20:00 Blood - Peripheral Venous Blood Culture - Final Pseudomonas Aeruginosa 04/24/18 20:16 Urine - Urine - Catheterized Urine Culture - Final -IV abx -ID on board -afebrile overnight -monitor WBC -rechecking cdiff Code(s): A41.9 - SEPSIS, UNSPECIFIED ORGANISM (2) Chronic respiratory failure Assessment/Plan: -mechanical vent -Pulmonary on board -Bronchodilators -not a candidate for weaning at this time Code(s): J96.10 - CHRONIC RESPIRATORY FAILURE, UNSP W HYPOXIA OR HYPERCAPNIA Qualifiers: Respiratory failure complication: hypoxia Qualified Code(s): J96.11 - Chronic respiratory failure with hypoxia (3) Pressure ulcer Assessment/Plan: -multiple wounds -2/2 to poor nutritional status -offloading -Santyl -Seen by Vascular and orthopedic surgery,no recommendation for surgical debridement of pressure ulcers at this time -prosource bid Code(s): L89.90 - PRESSURE ULCER OF UNSPECIFIED SITE, UNSPECIFIED STAGE (4) UTI (lower urinary tract infection) Assessment/Plan: -ID on baord -IV abx -afebrile Code(s): N39.0 - URINARY TRACT INFECTION, SITE NOT SPECIFIED (5) Ventilator dependent Code(s): Z99.11 - DEPENDENCE ON RESPIRATOR [VENTILATOR] STATUS (6) Anemia Assessment/Plan: -chronic -Iron profile low iron % -Start Feosol BID -thyroid profile, B 12, folate unremarkable -stool OB negative -transfuse if Hg <7.0 to avoid fluid overload Code(s): D64.9 - ANEMIA, UNSPECIFIED (7) Generalized edema Assessment/Plan: 2/2 -hypoalbuminemia -give furosemide 40 mg IVP BID Code(s): R60.1 - GENERALIZED EDEMA Assessment/Plan see problem list Overall poor prognosis palliative consult
[2018-05-04] MEDS ORDERED: PICC LINE 8 ML FLUSH PROTOCOL IVPUSH PRN (12:21)
[2018-05-04] MEDS: FERROUS SO4 300 MG/5 ML ORAL SOLN UNIT DOSE CUPS NGT SCH ×2 (13:13→21:45)
[2018-05-04] MEDS: VANCOMYCIN 1,250 MG in DEXTROSE 5%-WATER - 250 ML IVPB SCH (13:13)
--- NOTE | 2018-05-04 13:36 | PN ---
Progress Note, Physician - Current Medication List Current Medications: Active Medications Acetaminophen (Tylenol Oral Solution -) 650 mg PO Q6H PRN PRN Reason: FEVER Last Admin: 05/02/18 08:39 Dose: 650 mg Albuterol/Ipratropium (Duoneb -) 1 amp NEB RQID [facility] Last Admin: 05/04/18 12:46 Dose: 1 amp Amino Acids (Prosource No Carb Liquid Pkt) 30 ml PO BID@0800,1730 [facility] Last Admin: 05/04/18 09:00 Dose: 30 ml Ascorbic Acid (Vitamin C -) 500 mg GT DAILY [facility] Last Admin: 05/04/18 10:11 Dose: 500 mg Calcium Carbonate (Calcium Carb Oral Suspension -) 500 mg PEG BID [facility] Last Admin: 05/04/18 10:12 Dose: 500 mg Carbidopa/Levodopa (Sinemet 25/100 -) 1 each GT BID [facility] Last Admin: 05/04/18 10:11 Dose: 1 each Collagenase (Santyl -) 1 applic TP DAILY [facility]; Protocol Last Admin: 05/03/18 11:37 Dose: 1 applic Donepezil HCl (Aricept -) 10 mg GT HS [facility] Last Admin: 05/03/18 22:41 Dose: 10 mg Ferrous Sulfate (Feosol) 300 mg NGT BID [facility] Last Admin: 05/04/18 13:13 Dose: 300 mg Furosemide (Lasix Injection -) 40 mg IVPUSH BID@0600,1400 [facility] Last Admin: 05/04/18 06:07 Dose: 40 mg IV Flush (Picc Line Flush) 8 ml IVPUSH PRN PRN PRN Reason: Protocol IV Flush (Triple Lumen Flush) 4 ml IVPUSH PRN PRN PRN Reason: Protocol IV Flush (Picc Line Flush) 8 ml IVPUSH PRN PRN PRN Reason: Protocol Vancomycin HCl 1,250 mg/ (Dextrose) 250 mls @ 166.667 mls/hr IVPB Q24H [facility]; Protocol Last Admin: 05/04/18 13:13 Dose: 166.667 mls/hr Meropenem 1 gm/ Dextrose 100 mls @ 200 mls/hr IVPB Q8H-IV [facility] Last Admin: 05/04/18 10:14 Dose: 200 mls/hr Multivitamins/Minerals/Vitamin C (Tab-A-Vit -) 1 tab PO DAILY [facility] Last Admin: 05/04/18 10:11 Dose: 1 tab Oxycodone HCl (Roxicodone -) 5 mg GT Q6H PRN PRN Reason: PAIN LEVEL 7 - 10 Potassium Chloride (Potassium Chloride Oral Liquid) 40 meq PO DAILY [facility] Last Admin: 05/04/18 10:11 Dose: 40 meq Ranitidine HCl (Zantac Oral Solution -) 150 mg GT DAILY [facility] Last Admin: 05/04/18 10:11 Dose: 150 mg Sodium Hypochlorite (Dakin's Solution 0.25% (Half-Strength) -) 1 applic TP DAILY [facility] Last Admin: 05/03/18 11:36 Dose: 1 applic Vancomycin HCl (Vancomycin Oral Solution) 125 mg PO Q6HPO [facility] Last Admin: 05/04/18 13:13 Dose: 125 mg Warfarin Sodium (Coumadin -) 5 mg PO TuTh@1800 [facility] Warfarin Sodium (Coumadin -) 3 mg GT SuMoWeFrSa@1800 [facility] Zinc Sulfate (Orazinc -) 220 mg PO DAILY [facility] Last Admin: 05/04/18 10:11 Dose: 220 mg - Objective Vital Signs: Vital Signs Temperature 98.2 F 05/04/18 10:00 Pulse Rate 90 05/04/18 11:02 Respiratory Rate 12 05/04/18 10:01 Blood Pressure 104/74 05/04/18 10:00 O2 Sat by Pulse Oximetry (%) 98 05/04/18 11:02 Labs: CBC, BMP 05/04/18 08:00 05/03/18 05:50 INR, PTT INR 1.71 (0.83-1.09) H 05/04/18 07:40
--- NOTE | 2018-05-04 13:47 | CONSULT ---
Consult - text type - Consultation Consultation Note: Renal consult for hypernatremia This is a 82 year old male with history of Afib (on coumadin), chronic respiratory failure (s/p tracheostomy), CVA, CAD, dementia, Parkinson's, and is non-verbal presented from [facility] [place] for numerous ulcers with gram negative bacteremia and found to have hypernatremia and azotemia. PMhx: as above Allergies: NKDA Family hx: Unable to obtain Ros: unable to obtain because of clinical status Home Medications Medication Instructions Recorded Albuterol 2.5/Ipratropium 0.5 1 neb IH Q6H 03/20/16 [Duoneb -] Ascorbic Acid [Vitamin C -] 500 mg GT DAILY 03/20/16 Carbidopa/Levodopa 1 each GT BID 03/20/16 [Carbidopa-Levodopa 25-100 Tab] Aa/Trumann Shar,Whey/Arg/C/Zn/Cu 30 ml GT DAILY 07/09/16 [Lps Critical Care Liquid] Donepezil HCl [Aricept -] 10 mg GT DAILY 07/09/16 Collagenase Clostridium Hist. 1 applic TP DAILY tube 07/14/16 [Santyl -] Bacitracin - [Bacitracin Topical 1 applic TP DAILY tube 09/05/16 Ointment -] Lactobacillus Acidophilus [Bacid -] 1 tab GT DAILY tab 09/05/16 Scopolamine Hydrobromide 1 patch TD Q72H patch.td72 09/05/16 [Transderm-Scop -] Acetaminophen [Tylenol .Regular 650 mg GT ASDIR PRN 07/25/17 Strength -] Albuterol 2.5/Ipratropium 0.5 1 neb NEB Q4H 07/25/17 [Duoneb -] Calcium Carbonate/Vitamin D3 1 each GT DAILY 07/25/17 [Oyster Shell 500-Vit D3 200 Tb] Furosemide [Lasix -] 40 mg GT BID@0600,1400 07/25/17 Loperamide HCl [Loperamide] 2 mg GT Q6H 07/25/17 Potassium Chloride Oral Soln [KCl 40 meq GT DAILY 07/25/17 Oral Solution -] Ranitidine Oral Solution [Zantac 150 mg GT DAILY 07/25/17 Oral Solution -] Silver Sulfadiazine 1% Top Cr 1 applic TP DAILY 07/25/17 [Silvadene -] Warfarin Na [Coumadin -] 3.5 mg GT DAILY@1800 07/25/17 Zinc Sulfate [Orazinc -] 220 mg GT BID 07/25/17 oxyCODONE HCL [Roxicodone -] 5 mg GT Q6H 07/25/17 Vital Signs Temperature 98.2 F 05/04/18 10:00 Pulse Rate 90 05/04/18 11:02 Respiratory Rate 12 05/04/18 10:01 Blood Pressure 104/74 05/04/18 10:00 O2 Sat by Pulse Oximetry (%) 98 05/04/18 11:02 Intake & Output 05/01/18 05/02/18 05/03/18 05/04/18 23:59 23:59 23:59 23:59 Intake Total 3250 2320 1100 1070 Output Total 6200 825 0311 750 Balance 1350 1520 -1100 320 Weight 123.196 kg 109.815 kg CBC, BMP 05/04/18 08:00 05/03/18 05:50 Current Medications Acetaminophen (Tylenol Oral Solution -) 650 mg PO Q6H PRN PRN Reason: FEVER Last Admin: 05/02/18 08:39 Dose: 650 mg Albuterol/Ipratropium (Duoneb -) 1 amp NEB RQID [facility] Last Admin: 05/04/18 12:46 Dose: 1 amp Amino Acids (Prosource No Carb Liquid Pkt) 30 ml PO BID@0800,1730 [facility] Last Admin: 05/04/18 09:00 Dose: 30 ml Ascorbic Acid (Vitamin C -) 500 mg GT DAILY [facility] Last Admin: 05/04/18 10:11 Dose: 500 mg Calcium Carbonate (Calcium Carb Oral Suspension -) 500 mg PEG BID [facility] Last Admin: 05/04/18 10:12 Dose: 500 mg Carbidopa/Levodopa (Sinemet 25/100 -) 1 each GT BID [facility] Last Admin: 05/04/18 10:11 Dose: 1 each Collagenase (Santyl -) 1 applic TP DAILY [facility]; Protocol Last Admin: 05/03/18 11:37 Dose: 1 applic Donepezil HCl (Aricept -) 10 mg GT HS [facility] Last Admin: 05/03/18 22:41 Dose: 10 mg Ferrous Sulfate (Feosol) 300 mg NGT BID [facility] Last Admin: 05/04/18 13:13 Dose: 300 mg Furosemide (Lasix Injection -) 40 mg IVPUSH BID@0600,1400 [facility] Last Admin: 05/04/18 06:07 Dose: 40 mg IV Flush (Picc Line Flush) 8 ml IVPUSH PRN PRN PRN Reason: Protocol IV Flush (Triple Lumen Flush) 4 ml IVPUSH PRN PRN PRN Reason: Protocol IV Flush (Picc Line Flush) 8 ml IVPUSH PRN PRN PRN Reason: Protocol Vancomycin HCl 1,250 mg/ (Dextrose) 250 mls @ 166.667 mls/hr IVPB Q24H [facility]; Protocol Last Admin: 05/04/18 13:13 Dose: 166.667 mls/hr Meropenem 1 gm/ Dextrose 100 mls @ 200 mls/hr IVPB Q8H-IV [facility] Last Admin: 05/04/18 10:14 Dose: 200 mls/hr Multivitamins/Minerals/Vitamin C (Tab-A-Vit -) 1 tab PO DAILY [facility] Last Admin: 05/04/18 10:11 Dose: 1 tab Oxycodone HCl (Roxicodone -) 5 mg GT Q6H PRN PRN Reason: PAIN LEVEL 7 - 10 Potassium Chloride (Potassium Chloride Oral Liquid) 40 meq PO DAILY [facility] Last Admin: 05/04/18 10:11 Dose: 40 meq Ranitidine HCl (Zantac Oral Solution -) 150 mg GT DAILY [facility] Last Admin: 05/04/18 10:11 Dose: 150 mg Sodium Hypochlorite (Dakin's Solution 0.25% (Half-Strength) -) 1 applic TP DAILY [facility] Last Admin: 05/03/18 11:36 Dose: 1 applic Vancomycin HCl (Vancomycin Oral Solution) 125 mg PO Q6HPO [facility] Last Admin: 05/04/18 13:13 Dose: 125 mg Warfarin Sodium (Coumadin -) 5 mg PO TuTh@1800 [facility] Warfarin Sodium (Coumadin -) 3 mg GT SuMoWeFrSa@1800 [facility] Zinc Sulfate (Orazinc -) 220 mg PO DAILY [facility] Last Admin: 05/04/18 10:11 Dose: 220 mg 82 year old male with history of Afib (on coumadin), chronic respiratory failure (s/p tracheostomy), CVA, CAD, dementia, Parkinson's, and is non-verbal presented from [facility] [place] for numerous ulcers with gram negative bacteremia and found to have hypernatremia and azotemia. #Hypernatremia (water deficit ~5L) #Gram Negative Bacteremia/Sepsis #Pleural effusions #Chronic Respiratory failure #Anemia pt has continued water loss due to diuretics + vent status Will increase free water with tube fees to 60cc per hour and start D5W at 70cc per hour Trend serum na daily continue lasix as needed for management of effusions Vent support Abx as per ID prognosis is poor Thank you Kishor Sneed DO
--- NOTE | 2018-05-04 13:56 | PN ---
Progress Note, Physician History of Present Illness: pulmonary no change poorly responsive on vent support ac mode - Current Medication List Current Medications: Active Medications Acetaminophen (Tylenol Oral Solution -) 650 mg PO Q6H PRN PRN Reason: FEVER Last Admin: 05/02/18 08:39 Dose: 650 mg Albuterol/Ipratropium (Duoneb -) 1 amp NEB RQID [facility] Last Admin: 05/04/18 12:46 Dose: 1 amp Amino Acids (Prosource No Carb Liquid Pkt) 30 ml PO BID@0800,1730 [facility] Last Admin: 05/04/18 09:00 Dose: 30 ml Ascorbic Acid (Vitamin C -) 500 mg GT DAILY [facility] Last Admin: 05/04/18 10:11 Dose: 500 mg Calcium Carbonate (Calcium Carb Oral Suspension -) 500 mg PEG BID [facility] Last Admin: 05/04/18 10:12 Dose: 500 mg Carbidopa/Levodopa (Sinemet 25/100 -) 1 each GT BID [facility] Last Admin: 05/04/18 10:11 Dose: 1 each Collagenase (Santyl -) 1 applic TP DAILY [facility]; Protocol Last Admin: 05/03/18 11:37 Dose: 1 applic Donepezil HCl (Aricept -) 10 mg GT HS [facility] Last Admin: 05/03/18 22:41 Dose: 10 mg Ferrous Sulfate (Feosol) 300 mg NGT BID [facility] Last Admin: 05/04/18 13:13 Dose: 300 mg Furosemide (Lasix Injection -) 40 mg IVPUSH BID@0600,1400 [facility] Last Admin: 05/04/18 06:07 Dose: 40 mg IV Flush (Picc Line Flush) 8 ml IVPUSH PRN PRN PRN Reason: Protocol IV Flush (Triple Lumen Flush) 4 ml IVPUSH PRN PRN PRN Reason: Protocol IV Flush (Picc Line Flush) 8 ml IVPUSH PRN PRN PRN Reason: Protocol Vancomycin HCl 1,250 mg/ (Dextrose) 250 mls @ 166.667 mls/hr IVPB Q24H [facility]; Protocol Last Admin: 05/04/18 13:13 Dose: 166.667 mls/hr Meropenem 1 gm/ Dextrose 100 mls @ 200 mls/hr IVPB Q8H-IV [facility] Last Admin: 05/04/18 10:14 Dose: 200 mls/hr Multivitamins/Minerals/Vitamin C (Tab-A-Vit -) 1 tab PO DAILY [facility] Last Admin: 05/04/18 10:11 Dose: 1 tab Oxycodone HCl (Roxicodone -) 5 mg GT Q6H PRN PRN Reason: PAIN LEVEL 7 - 10 Potassium Chloride (Potassium Chloride Oral Liquid) 40 meq PO DAILY [facility] Last Admin: 05/04/18 10:11 Dose: 40 meq Ranitidine HCl (Zantac Oral Solution -) 150 mg GT DAILY [facility] Last Admin: 05/04/18 10:11 Dose: 150 mg Sodium Hypochlorite (Dakin's Solution 0.25% (Half-Strength) -) 1 applic TP DAILY [facility] Last Admin: 05/03/18 11:36 Dose: 1 applic Vancomycin HCl (Vancomycin Oral Solution) 125 mg PO Q6HPO [facility] Last Admin: 05/04/18 13:13 Dose: 125 mg Warfarin Sodium (Coumadin -) 5 mg PO TuTh@1800 [facility] Warfarin Sodium (Coumadin -) 3 mg GT SuMoWeFrSa@1800 [facility] Zinc Sulfate (Orazinc -) 220 mg PO DAILY [facility] Last Admin: 05/04/18 10:11 Dose: 220 mg - Objective Vital Signs: Vital Signs Temperature 98.2 F 05/04/18 10:00 Pulse Rate 90 05/04/18 11:02 Respiratory Rate 12 05/04/18 10:01 Blood Pressure 104/74 05/04/18 10:00 O2 Sat by Pulse Oximetry (%) 98 05/04/18 11:02 Constitutional: Yes: Well Nourished, Other (poorly responsive) Eyes: Yes: WNL HENT: Yes: WNL Neck: Yes: Supple (trach) Cardiovascular: Yes: Pulse Irregular, S1, S2 Respiratory: Yes: Rhonchi (scattered rhonchi) Gastrointestinal: Yes: Normal Bowel Sounds, Soft Extremities: Yes: WNL Edema: Yes Labs: CBC, BMP 05/04/18 08:00 INR, PTT INR 1.71 (0.83-1.09) H 05/04/18 07:40 Problem List - Problems (1) A-fib Code(s): I48.91 - UNSPECIFIED ATRIAL FIBRILLATION Qualifiers: Atrial fibrillation type: chronic Qualified Code(s): I48.2 - Chronic atrial fibrillation (2) CHF (congestive heart failure) Code(s): I50.9 - HEART FAILURE, UNSPECIFIED (3) Chronic atrial fibrillation Code(s): I48.2 - CHRONIC ATRIAL FIBRILLATION (4) Chronic osteomyelitis Code(s): M86.60 - OTHER CHRONIC OSTEOMYELITIS, UNSPECIFIED SITE (5) Chronic respiratory failure Code(s): J96.10 - CHRONIC RESPIRATORY FAILURE, UNSP W HYPOXIA OR HYPERCAPNIA Qualifiers: Respiratory failure complication: hypoxia Qualified Code(s): J96.11 - Chronic respiratory failure with hypoxia (6) Dementia Code(s): F03.90 - UNSPECIFIED DEMENTIA WITHOUT BEHAVIORAL DISTURBANCE Qualifiers: Dementia type: Parkinson's disease Dementia behavioral disturbance: with behavioral disturbance Qualified Code(s): G20 - Parkinson's disease (7) Hyperlipemia Code(s): E78.5 - HYPERLIPIDEMIA, UNSPECIFIED (8) PEG (percutaneous endoscopic gastrostomy) adjustment/replacement/removal Code(s): Z43.1 - ENCOUNTER FOR ATTENTION TO GASTROSTOMY (9) Parkinson disease Code(s): G20 - PARKINSON'S DISEASE (10) Pleural effusion Code(s): J90 - PLEURAL EFFUSION, NOT ELSEWHERE CLASSIFIED (11) Sacral decubitus ulcer Code(s): L89.159 - PRESSURE ULCER OF SACRAL REGION, UNSPECIFIED STAGE Qualifiers: Qualified Code(s): L89.153 - Pressure ulcer of sacral region, stage 3 (12) Ventilator dependent Code(s): Z99.11 - DEPENDENCE ON RESPIRATOR [VENTILATOR] STATUS (13) Sepsis Code(s): A41.9 - SEPSIS, UNSPECIFIED ORGANISM (14) Sepsis Code(s): A41.9 - SEPSIS, UNSPECIFIED ORGANISM Qualifiers: Sepsis type: sepsis due to unspecified organism Qualified Code(s): A41.9 - Sepsis, unspecified organism (15) Lactate blood increase Code(s): R79.89 - OTHER SPECIFIED ABNORMAL FINDINGS OF BLOOD CHEMISTRY Assessment/Plan IMP CHRONIC RESPIRATORY FAILURE SEPSIS INFECTED DECUBITI CHF AFIB ELEVATED LACTATE LEVEL CORRECTED H/O CVA H/O PARKINSONS PLAN ABX PER ID VENT SUPPORT ON AC MODE INHALED BRONCHODILATORS AC DIURETICS F/U CHEST X-RAYS DR [place] Problem List - Problems (1) A-fib Code(s): I48.91 - UNSPECIFIED ATRIAL FIBRILLATION Qualifiers: Atrial fibrillation type: chronic Qualified Code(s): I48.2 - Chronic atrial fibrillation (2) CHF (congestive heart failure) Code(s): I50.9 - HEART FAILURE, UNSPECIFIED (3) Chronic atrial fibrillation Code(s): I48.2 - CHRONIC ATRIAL FIBRILLATION (4) Chronic osteomyelitis Code(s): M86.60 - OTHER CHRONIC OSTEOMYELITIS, UNSPECIFIED SITE (5) Chronic respiratory failure Code(s): J96.10 - CHRONIC RESPIRATORY FAILURE, UNSP W HYPOXIA OR HYPERCAPNIA Qualifiers: Respiratory failure complication: hypoxia Qualified Code(s): J96.11 - Chronic respiratory failure with hypoxia (6) Dementia Code(s): F03.90 - UNSPECIFIED DEMENTIA WITHOUT BEHAVIORAL DISTURBANCE Qualifiers: Dementia type: Parkinson's disease Dementia behavioral disturbance: with behavioral disturbance Qualified Code(s): G20 - Parkinson's disease (7) Hyperlipemia Code(s): E78.5 - HYPERLIPIDEMIA, UNSPECIFIED (8) PEG (percutaneous endoscopic gastrostomy) adjustment/replacement/removal Code(s): Z43.1 - ENCOUNTER FOR ATTENTION TO GASTROSTOMY (9) Parkinson disease Code(s): G20 - PARKINSON'S DISEASE (10) Pleural effusion Code(s): J90 - PLEURAL EFFUSION, NOT ELSEWHERE CLASSIFIED (11) Sacral decubitus ulcer Code(s): L89.159 - PRESSURE ULCER OF SACRAL REGION, UNSPECIFIED STAGE Qualifiers: Qualified Code(s): L89.153 - Pressure ulcer of sacral region, stage 3 (12) Ventilator dependent Code(s): Z99.11 - DEPENDENCE ON RESPIRATOR [VENTILATOR] STATUS (13) Sepsis Code(s): A41.9 - SEPSIS, UNSPECIFIED ORGANISM (14) Sepsis Code(s): A41.9 - SEPSIS, UNSPECIFIED ORGANISM (15) Lactate blood increase Code(s): R79.89 - OTHER SPECIFIED ABNORMAL FINDINGS OF BLOOD CHEMISTRY
--- NOTE | 2018-05-04 16:00 | PN ---
Progress Note (short form) - Note Progress Note: Surgery Asked to place central line in patient with poor access. When we called the patient's HCP (, Jennifer) she stated that she would like to stop his current care/antibiotics and transfer the patient back to the [facility] on palliative care. Kelly, the palliative care nurse, who has been working with the patient and his family for years, was present for the phone conversation, also got on the phone and confirmed the plan to proceed with palliative care at this time. Re-consult surgery PRN Evaluation and plan discussed with Dr Rosario.
[2018-05-04 16:08] VITALS: BMI 34.7
[2018-05-04] MEDS: DEXTROSE 5%-WATER - 1,000 ML IV SCH (16:45)
[2018-05-04] MEDS: WARFARIN NA 5 MG TABLET (UD) PO SCH (18:03)
[2018-05-04] MEDS: COLLAGENASE CLOSTRIDIUM HIST. 30 GRAMS TUBE TP SCH (18:44)
[2018-05-04] MEDS: SODIUM HYPOCHLORITE 0.25%- 473 ML BULK BOTTLE TP SCH (18:44)
[2018-05-04] MEDS: DONEPEZIL HCL 10 MG TABLET (FP) GT SCH (21:46)
[2018-05-05] MEDS: VANCOMYCIN 250 MG/5 ML ORAL SOLUTION PO SCH ×3 (00:02→12:00)
[2018-05-05] MEDS: MEROPENEM 1 GM in DEXTROSE 5%-WATER 100 ML IVPB SCH ×2 (01:51→09:12)
[2018-05-05] MEDS: oxyCODONE HCL 5 MG TABLET GT PRN ×2 (05:56→17:17)
[2018-05-05] MEDS: FUROSEMIDE 40 MG/4 ML INJECTABLE VIAL IVPUSH SCH ×2 (05:56→14:25)
[2018-05-05 06:59] LABS: INR 1.59 (0.83-1.09); PROTHROMBIN TIME (PATIENT) 18.8 SEC (9.7-13.0)
[2018-05-05] MEDS: ALBUTEROL SO4 2.5/IPRATROPIUM 0.5 INH SOL 3 ML VIAL.NEB. NEB SCH ×4 (07:20→20:12)
[2018-05-05] MEDS: DEXTROSE 5%-WATER - 1,000 ML IV SCH (09:10)
[2018-05-05] MEDS: CARBIDOPA/LEVODOPA 25/100 TABLET (FP) GT SCH ×2 (09:12→21:02)
[2018-05-05] MEDS: MULTIVITAMINS (DAILY MVI) TABLET (FP) PO SCH (09:12)
[2018-05-05] MEDS: POTASSIUM CHLORIDE ORAL LIQUID 20 MEQ/15 ML PO SCH (09:12)
[2018-05-05] MEDS: ZINC SULFATE 220 MG CAPSULE (FP) PO SCH (09:12)
[2018-05-05] MEDS: ASCORBIC ACID 500 MG TABLET (FP) GT SCH (09:12)
[2018-05-05] MEDS: RANITIDINE HCL 150 MG/10 ML UNIT-DOSE GT SCH (09:12)
[2018-05-05] MEDS: CALCIUM CARBONATE SUSPENSION - 500 MG/5 ML ML PEG SCH ×2 (09:13→21:04)
[2018-05-05] MEDS: FERROUS SO4 300 MG/5 ML ORAL SOLN UNIT DOSE CUPS NGT SCH ×2 (09:13→21:02)
[2018-05-05] MEDS: AMINO ACIDS/PROTEIN HYDROLYS 30 ML LIQUID.PKT PO SCH ×2 (09:13→17:15)
--- NOTE | 2018-05-05 09:27 | PN ---
Progress Note, Physician - Current Medication List Current Medications: Active Medications Acetaminophen (Tylenol Oral Solution -) 650 mg PO Q6H PRN PRN Reason: FEVER Last Admin: 05/02/18 08:39 Dose: 650 mg Albuterol/Ipratropium (Duoneb -) 1 amp NEB RQID [facility] Last Admin: 05/05/18 07:20 Dose: 1 amp Amino Acids (Prosource No Carb Liquid Pkt) 30 ml PO BID@0800,1730 [facility] Last Admin: 05/05/18 09:13 Dose: 30 ml Ascorbic Acid (Vitamin C -) 500 mg GT DAILY [facility] Last Admin: 05/05/18 09:12 Dose: 500 mg Calcium Carbonate (Calcium Carb Oral Suspension -) 500 mg PEG BID [facility] Last Admin: 05/05/18 09:13 Dose: 500 mg Carbidopa/Levodopa (Sinemet 25/100 -) 1 each GT BID [facility] Last Admin: 05/05/18 09:12 Dose: 1 each Collagenase (Santyl -) 1 applic TP DAILY [facility]; Protocol Last Admin: 05/04/18 18:44 Dose: 1 applic Donepezil HCl (Aricept -) 10 mg GT HS [facility] Last Admin: 05/04/18 21:46 Dose: 10 mg Ferrous Sulfate (Feosol) 300 mg NGT BID [facility] Last Admin: 05/05/18 09:13 Dose: 300 mg Furosemide (Lasix Injection -) 40 mg IVPUSH BID@0600,1400 [facility] Last Admin: 05/05/18 05:56 Dose: 40 mg IV Flush (Picc Line Flush) 8 ml IVPUSH PRN PRN PRN Reason: Protocol IV Flush (Triple Lumen Flush) 4 ml IVPUSH PRN PRN PRN Reason: Protocol IV Flush (Picc Line Flush) 8 ml IVPUSH PRN PRN PRN Reason: Protocol Vancomycin HCl 1,250 mg/ (Dextrose) 250 mls @ 166.667 mls/hr IVPB Q24H [facility]; Protocol Last Admin: 05/04/18 13:13 Dose: 166.667 mls/hr Meropenem 1 gm/ Dextrose 100 mls @ 200 mls/hr IVPB Q8H-IV [facility] Last Admin: 05/05/18 09:12 Dose: 200 mls/hr Dextrose (D5w -) 1,000 mls @ 70 mls/hr IV ASDIR [facility] Stop: 05/05/18 14:14 Last Admin: 05/05/18 09:10 Dose: 70 mls/hr Multivitamins/Minerals/Vitamin C (Tab-A-Vit -) 1 tab PO DAILY [facility] Last Admin: 05/05/18 09:12 Dose: 1 tab Oxycodone HCl (Roxicodone -) 5 mg GT Q6H PRN PRN Reason: PAIN LEVEL 7 - 10 Last Admin: 05/05/18 05:56 Dose: 5 mg Potassium Chloride (Potassium Chloride Oral Liquid) 40 meq PO DAILY [facility] Last Admin: 05/05/18 09:12 Dose: 40 meq Ranitidine HCl (Zantac Oral Solution -) 150 mg GT DAILY [facility] Last Admin: 05/05/18 09:12 Dose: 150 mg Sodium Hypochlorite (Dakin's Solution 0.25% (Half-Strength) -) 1 applic TP DAILY [facility] Last Admin: 05/04/18 18:44 Dose: 1 applic Vancomycin HCl (Vancomycin Oral Solution) 125 mg PO Q6HPO [facility] Last Admin: 05/05/18 05:56 Dose: 125 mg Warfarin Sodium (Coumadin -) 5 mg PO TuTh@1800 [facility] Last Admin: 05/04/18 18:03 Dose: 5 mg Warfarin Sodium (Coumadin -) 3 mg GT SuMoWeFrSa@1800 [facility] Zinc Sulfate (Orazinc -) 220 mg PO DAILY [facility] Last Admin: 05/05/18 09:12 Dose: 220 mg - Objective Vital Signs: Vital Signs Temperature 99.1 F 05/05/18 06:00 Pulse Rate 84 05/05/18 06:00 Respiratory Rate 17 05/05/18 06:10 Blood Pressure 104/65 05/05/18 06:00 O2 Sat by Pulse Oximetry (%) 100 05/04/18 21:00 Cardiovascular: Yes: S1, S2 Respiratory: Yes: Mechanically Ventilated Neurological: Yes: Unresponsive Labs: CBC, BMP 05/04/18 08:00 05/03/18 05:50 INR, PTT INR 1.59 (0.83-1.09) H 05/05/18 06:00 Problem List - Problems (1) Sepsis Code(s): A41.9 - SEPSIS, UNSPECIFIED ORGANISM (2) A-fib Code(s): I48.91 - UNSPECIFIED ATRIAL FIBRILLATION Qualifiers: Atrial fibrillation type: chronic Qualified Code(s): I48.2 - Chronic atrial fibrillation (3) CHF (congestive heart failure) Code(s): I50.9 - HEART FAILURE, UNSPECIFIED (4) Pressure ulcer Code(s): L89.90 - PRESSURE ULCER OF UNSPECIFIED SITE, UNSPECIFIED STAGE (5) Respiratory failure Code(s): J96.90 - RESPIRATORY FAILURE, UNSP, UNSP W HYPOXIA OR HYPERCAPNIA Qualifiers: Chronicity: acute Respiratory failure complication: hypoxia and hypercapnia Qualified Code(s): J96.01 - Acute respiratory failure with hypoxia Assessment/Plan - Problems (1) Sepsis Assessment/Plan: culture: Microbiology 05/01/18 16:00 Blood - Peripheral Venous Blood Culture - Preliminary NO GROWTH OBTAINED AFTER 48 HOURS, INCUBATION TO CONTINUE FOR 3 DAYS. 05/01/18 16:00 Blood - Peripheral Venous Blood Culture - Preliminary NO GROWTH OBTAINED AFTER 48 HOURS, INCUBATION TO CONTINUE FOR 3 DAYS. 05/01/18 17:15 Stool Clostridium difficile (PCR) - Final 04/28/18 07:45 Blood - Peripheral Venous Blood Culture - Final NO GROWTH AFTER 5 DAYS INCUBATION 04/28/18 07:30 Blood - Peripheral Venous Blood Culture - Final NO GROWTH AFTER 5 DAYS INCUBATION 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 Esbl Embroidery Assistant Acinetobacter Baumannii/Haemol Mr S Aureus Enterococcus Faecalis Enterococcus Raffinosus Pending Organism 04/24/18 20:00 Blood - Peripheral Venous Blood Culture - Final Pseudomonas Aeruginosa 04/24/18 20:16 Urine - Urine - Catheterized Urine Culture - Final -IV abx -ID on board -afebrile overnight -monitor WBC -rechecking cdiff Code(s): A41.9 - SEPSIS, UNSPECIFIED ORGANISM (2) Chronic respiratory failure Assessment/Plan: -mechanical vent -Pulmonary on board -Bronchodilators -not a candidate for weaning at this time Code(s): J96.10 - CHRONIC RESPIRATORY FAILURE, UNSP W HYPOXIA OR HYPERCAPNIA Qualifiers: Respiratory failure complication: hypoxia Qualified Code(s): J96.11 - Chronic respiratory failure with hypoxia (3) Pressure ulcer Assessment/Plan: -multiple wounds -2/2 to poor nutritional status -offloading -Santyl -Seen by Vascular and orthopedic surgery,no recommendation for surgical debridement of pressure ulcers at this time -prosource bid Code(s): L89.90 - PRESSURE ULCER OF UNSPECIFIED SITE, UNSPECIFIED STAGE (4) UTI (lower urinary tract infection) Assessment/Plan: -ID on baord -IV abx -afebrile Code(s): N39.0 - URINARY TRACT INFECTION, SITE NOT SPECIFIED (5) Ventilator dependent Code(s): Z99.11 - DEPENDENCE ON RESPIRATOR [VENTILATOR] STATUS (6) Anemia Assessment/Plan: -chronic -Iron profile low iron % -Start Feosol BID -thyroid profile, B 12, folate unremarkable -stool OB negative -transfuse if Hg <7.0 to avoid fluid overload Code(s): D64.9 - ANEMIA, UNSPECIFIED (7) Generalized edema Assessment/Plan: 2/2 -hypoalbuminemia -give furosemide 40 mg IVP BID Code(s): R60.1 - GENERALIZED EDEMA Assessment/Plan see problem list Overall poor prognosis palliative consult
--- NOTE | 2018-05-05 11:18 | PN ---
Progress Note, Physician History of Present Illness: no gross changes in the patient ongoing discussion with the family about further plans - Current Medication List Current Medications: Active Medications Acetaminophen (Tylenol Oral Solution -) 650 mg PO Q6H PRN PRN Reason: FEVER Last Admin: 05/02/18 08:39 Dose: 650 mg Albuterol/Ipratropium (Duoneb -) [address] [facility] Last Admin: 05/05/18 07:20 Dose: 1 amp Amino Acids (Prosource No Carb Liquid Pkt) 30 ml PO BID@0800,1730 [facility] Last Admin: 05/05/18 09:13 Dose: 30 ml Ascorbic Acid (Vitamin C -) [address] [facility] Last Admin: 05/05/18 09:12 Dose: 500 mg Calcium Carbonate (Calcium Carb Oral Suspension -) [address] [facility] Last Admin: 05/05/18 09:13 Dose: 500 mg Carbidopa/Levodopa (Sinemet 25/100 -) [address] [facility] Last Admin: 05/05/18 09:12 Dose: 1 each Collagenase (Santyl -) [address] [facility]; Protocol Last Admin: 05/04/18 18:44 Dose: 1 applic Donepezil HCl (Aricept -) 10 mg GT HS [facility] Last Admin: 05/04/18 21:46 Dose: 10 mg Ferrous Sulfate (Feosol) [address] [facility] Last Admin: 05/05/18 09:13 Dose: 300 mg Furosemide (Lasix Injection -) 40 mg IVPUSH BID@0600,1400 [facility] Last Admin: 05/05/18 05:56 Dose: 40 mg IV Flush (Picc Line Flush) 8 ml IVPUSH PRN PRN PRN Reason: Protocol IV Flush (Triple Lumen Flush) 4 ml IVPUSH PRN PRN PRN Reason: Protocol IV Flush (Picc Line Flush) 8 ml IVPUSH PRN PRN PRN Reason: Protocol Vancomycin HCl 1,250 mg/ (Dextrose) 250 mls @ 166.667 mls/hr IVPB Q24H [facility]; Protocol Last Admin: 05/04/18 13:13 Dose: 166.667 mls/hr Meropenem 1 gm/ Dextrose 100 mls @ 200 mls/hr IVPB Q8H-IV [facility] Last Admin: 05/05/18 09:12 Dose: 200 mls/hr Dextrose (D5w -) 1,000 mls @ 70 mls/hr IV ASDIR [facility] Stop: 05/05/18 14:14 Last Admin: 05/05/18 09:10 Dose: 70 mls/hr Multivitamins/Minerals/Vitamin C (Tab-A-Vit -) [address] [facility] Last Admin: 05/05/18 09:12 Dose: 1 tab Oxycodone HCl (Roxicodone -) 5 mg GT Q6H PRN PRN Reason: PAIN LEVEL 7 - 10 Last Admin: 05/05/18 05:56 Dose: 5 mg Potassium Chloride (Potassium Chloride Oral Liquid) [address] [facility] Last Admin: 05/05/18 09:12 Dose: 40 meq Ranitidine HCl (Zantac Oral Solution -) [address] [facility] Last Admin: 05/05/18 09:12 Dose: 150 mg Sodium Hypochlorite (Dakin's Solution 0.25% (Half-Strength) -) [address] [facility] Last Admin: 05/04/18 18:44 Dose: 1 applic Vancomycin HCl (Vancomycin Oral Solution) [address] [facility] Last Admin: 05/05/18 05:56 Dose: 125 mg Warfarin Sodium (Coumadin -) 5 mg PO TuTh@1800 [facility] Last Admin: 05/04/18 18:03 Dose: 5 mg Warfarin Sodium (Coumadin -) 3 mg GT SuMoWeFrSa@1800 [facility] Zinc Sulfate (Orazinc -) [address] [facility] Last Admin: 05/05/18 09:12 Dose: 220 mg - Objective Vital Signs: Vital Signs Temperature 98.8 F 05/05/18 09:26 Pulse Rate 88 05/05/18 09:26 Respiratory Rate 16 05/05/18 09:26 Blood Pressure 114/62 05/05/18 09:26 O2 Sat by Pulse Oximetry (%) 100 05/04/18 21:00 Constitutional: Yes: Calm, Other Cardiovascular: Yes: S1, S2 Respiratory: Yes: Mechanically Ventilated, Other (trach) Gastrointestinal: Yes: Normal Bowel Sounds, Soft, Other Musculoskeletal: Yes: Other Extremities: Yes: Other Neurological: Yes: Other Labs: CBC, BMP 05/04/18 08:00 05/03/18 05:50 INR, PTT INR 1.59 (0.83-1.09) H 05/05/18 06:00 Assessment/Plan Problem List - Problems (1) A-fib Code(s): I48.91 - UNSPECIFIED ATRIAL FIBRILLATION Qualifiers: Atrial fibrillation type: chronic Qualified Code(s): I48.2 - Chronic atrial fibrillation (2) CHF (congestive heart failure) Code(s): I50.9 - HEART FAILURE, UNSPECIFIED (3) Chronic atrial fibrillation Code(s): I48.2 - CHRONIC ATRIAL FIBRILLATION (4) Chronic osteomyelitis Code(s): M86.60 - OTHER CHRONIC OSTEOMYELITIS, UNSPECIFIED SITE (5) Chronic respiratory failure Code(s): J96.10 - CHRONIC RESPIRATORY FAILURE, UNSP W HYPOXIA OR HYPERCAPNIA Qualifiers: Respiratory failure complication: hypoxia Qualified Code(s): J96.11 - Chronic respiratory failure with hypoxia (6) Dementia Code(s): F03.90 - UNSPECIFIED DEMENTIA WITHOUT BEHAVIORAL DISTURBANCE Qualifiers: Dementia type: Parkinson's disease Dementia behavioral disturbance: with behavioral disturbance Qualified Code(s): G20 - Parkinson's disease (7) Hyperlipemia Code(s): E78.5 - HYPERLIPIDEMIA, UNSPECIFIED (8) PEG (percutaneous endoscopic gastrostomy) adjustment/replacement/removal Code(s): Z43.1 - ENCOUNTER FOR ATTENTION TO GASTROSTOMY (9) Parkinson disease Code(s): G20 - PARKINSON'S DISEASE (10) Pleural effusion Code(s): J90 - PLEURAL EFFUSION, NOT ELSEWHERE CLASSIFIED (11) Sacral decubitus ulcer Code(s): L89.159 - PRESSURE ULCER OF SACRAL REGION, UNSPECIFIED STAGE Qualifiers: Qualified Code(s): L89.153 - Pressure ulcer of sacral region, stage 3 (12) Ventilator dependent Code(s): Z99.11 - DEPENDENCE ON RESPIRATOR [VENTILATOR] STATUS (13) Sepsis Code(s): A41.9 - SEPSIS, UNSPECIFIED ORGANISM (14) Sepsis Code(s): A41.9 - SEPSIS, UNSPECIFIED ORGANISM (15) Lactate blood increase Code(s): R79.89 - OTHER SPECIFIED ABNORMAL FINDINGS OF BLOOD CHEMISTRY 16 gm negative bacteremia 17 wound infection plan continue abx repeat blood cx negative awaiting final decision from the family if family wants to make patient hospice can stop all abx
--- NOTE | 2018-05-05 12:24 | PN ---
Progress Note, Physician History of Present Illness: pulmonary no change poorly responsive on vent support ac mode. - Current Medication List Current Medications: Active Medications Acetaminophen (Tylenol Oral Solution -) 650 mg PO Q6H PRN PRN Reason: FEVER Last Admin: 05/02/18 08:39 Dose: 650 mg Albuterol/Ipratropium (Duoneb -) 1 amp NEB RQID [facility] Last Admin: 05/05/18 07:20 Dose: 1 amp Amino Acids (Prosource No Carb Liquid Pkt) 30 ml PO BID@0800,1730 [facility] Last Admin: 05/05/18 09:13 Dose: 30 ml Ascorbic Acid (Vitamin C -) 500 mg GT DAILY [facility] Last Admin: 05/05/18 09:12 Dose: 500 mg Calcium Carbonate (Calcium Carb Oral Suspension -) 500 mg PEG BID [facility] Last Admin: 05/05/18 09:13 Dose: 500 mg Carbidopa/Levodopa (Sinemet 25/100 -) 1 each GT BID [facility] Last Admin: 05/05/18 09:12 Dose: 1 each Collagenase (Santyl -) 1 applic TP DAILY [facility]; Protocol Last Admin: 05/04/18 18:44 Dose: 1 applic Donepezil HCl (Aricept -) 10 mg GT HS [facility] Last Admin: 05/04/18 21:46 Dose: 10 mg Ferrous Sulfate (Feosol) 300 mg NGT BID [facility] Last Admin: 05/05/18 09:13 Dose: 300 mg Furosemide (Lasix Injection -) 40 mg IVPUSH BID@0600,1400 [facility] Last Admin: 05/05/18 05:56 Dose: 40 mg IV Flush (Picc Line Flush) 8 ml IVPUSH PRN PRN PRN Reason: Protocol IV Flush (Triple Lumen Flush) 4 ml IVPUSH PRN PRN PRN Reason: Protocol IV Flush (Picc Line Flush) 8 ml IVPUSH PRN PRN PRN Reason: Protocol Vancomycin HCl 1,250 mg/ (Dextrose) 250 mls @ 166.667 mls/hr IVPB Q24H [facility]; Protocol Last Admin: 05/04/18 13:13 Dose: 166.667 mls/hr Meropenem 1 gm/ Dextrose 100 mls @ 200 mls/hr IVPB Q8H-IV [facility] Last Admin: 10/31/18 09:12 Dose: 200 mls/hr Dextrose (D5w -) 1,000 mls @ 70 mls/hr IV ASDIR [facility] Stop: 05/05/18 14:14 Last Admin: 05/05/18 09:10 Dose: 70 mls/hr Multivitamins/Minerals/Vitamin C (Tab-A-Vit -) 1 tab PO DAILY [facility] Last Admin: 05/05/18 09:12 Dose: 1 tab Oxycodone HCl (Roxicodone -) 5 mg GT Q6H PRN PRN Reason: PAIN LEVEL 7 - 10 Last Admin: 05/05/18 05:56 Dose: 5 mg Potassium Chloride (Potassium Chloride Oral Liquid) 40 meq PO DAILY [facility] Last Admin: 05/05/18 09:12 Dose: 40 meq Ranitidine HCl (Zantac Oral Solution -) 150 mg GT DAILY [facility] Last Admin: 05/05/18 09:12 Dose: 150 mg Sodium Hypochlorite (Dakin's Solution 0.25% (Half-Strength) -) 1 applic TP DAILY [facility] Last Admin: 05/04/18 18:44 Dose: 1 applic Vancomycin HCl (Vancomycin Oral Solution) 125 mg PO Q6HPO [facility] Last Admin: 05/05/18 05:56 Dose: 125 mg Warfarin Sodium (Coumadin -) 5 mg PO TuTh@1800 [facility] Last Admin: 05/04/18 18:03 Dose: 5 mg Warfarin Sodium (Coumadin -) 3 mg GT SuMoWeFrSa@1800 [facility] Zinc Sulfate (Orazinc -) 220 mg PO DAILY [facility] Last Admin: 05/05/18 09:12 Dose: 220 mg - Objective Vital Signs: Vital Signs Temperature 98.8 F 05/05/18 09:26 Pulse Rate 80 05/05/18 11:29 Respiratory Rate 16 05/05/18 10:30 Blood Pressure 114/62 05/05/18 09:26 O2 Sat by Pulse Oximetry (%) 99 05/05/18 11:29 Constitutional: Yes: Well Nourished, Other Eyes: Yes: WNL HENT: Yes: WNL Neck: Yes: Supple (trach) Cardiovascular: Yes: Pulse Irregular, S1, S2 Respiratory: Yes: Rhonchi (few rhonchi) Gastrointestinal: Yes: Normal Bowel Sounds, Soft Extremities: Yes: WNL Edema: Yes Labs: CBC, BMP 05/04/18 08:00 Problem List - Problems (1) A-fib Code(s): I48.91 - UNSPECIFIED ATRIAL FIBRILLATION Qualifiers: Atrial fibrillation type: chronic Qualified Code(s): I48.2 - Chronic atrial fibrillation (2) CHF (congestive heart failure) Code(s): I50.9 - HEART FAILURE, UNSPECIFIED (3) Chronic atrial fibrillation Code(s): I48.2 - CHRONIC ATRIAL FIBRILLATION (4) Chronic osteomyelitis Code(s): M86.60 - OTHER CHRONIC OSTEOMYELITIS, UNSPECIFIED SITE (5) Chronic respiratory failure Code(s): J96.10 - CHRONIC RESPIRATORY FAILURE, UNSP W HYPOXIA OR HYPERCAPNIA Qualifiers: Respiratory failure complication: hypoxia Qualified Code(s): J96.11 - Chronic respiratory failure with hypoxia (6) Dementia Code(s): F03.90 - UNSPECIFIED DEMENTIA WITHOUT BEHAVIORAL DISTURBANCE Qualifiers: Dementia type: Parkinson's disease Dementia behavioral disturbance: with behavioral disturbance Qualified Code(s): G20 - Parkinson's disease (7) Hyperlipemia Code(s): E78.5 - HYPERLIPIDEMIA, UNSPECIFIED (8) PEG (percutaneous endoscopic gastrostomy) adjustment/replacement/removal Code(s): Z43.1 - ENCOUNTER FOR ATTENTION TO GASTROSTOMY (9) Parkinson disease Code(s): G20 - PARKINSON'S DISEASE (10) Pleural effusion Code(s): J90 - PLEURAL EFFUSION, NOT ELSEWHERE CLASSIFIED (11) Sacral decubitus ulcer Code(s): L89.159 - PRESSURE ULCER OF SACRAL REGION, UNSPECIFIED STAGE Qualifiers: Qualified Code(s): L89.153 - Pressure ulcer of sacral region, stage 3 (12) Ventilator dependent Code(s): Z99.11 - DEPENDENCE ON RESPIRATOR [VENTILATOR] STATUS (13) Sepsis Code(s): A41.9 - SEPSIS, UNSPECIFIED ORGANISM (14) Sepsis Code(s): A41.9 - SEPSIS, UNSPECIFIED ORGANISM Qualifiers: Sepsis type: sepsis due to unspecified organism Qualified Code(s): A41.9 - Sepsis, unspecified organism (15) Lactate blood increase Code(s): R79.89 - OTHER SPECIFIED ABNORMAL FINDINGS OF BLOOD CHEMISTRY Assessment/Plan IMP CHRONIC RESPIRATORY FAILURE SEPSIS INFECTED DECUBITI CHF AFIB ELEVATED LACTATE LEVEL CORRECTED H/O CVA H/O PARKINSONS PLAN ABX VENT SUPPORT ON AC MODE INHALED BRONCHODILATORS AC DIURETICS F/U CHEST X-RAYS SUPPORTIVE CARE PROGNOSIS POOR DR [place] Problem List - Problems (1) A-fib Code(s): I48.91 - UNSPECIFIED ATRIAL FIBRILLATION Qualifiers: Atrial fibrillation type: chronic Qualified Code(s): I48.2 - Chronic atrial fibrillation (2) CHF (congestive heart failure) Code(s): I50.9 - HEART FAILURE, UNSPECIFIED (3) Chronic atrial fibrillation Code(s): I48.2 - CHRONIC ATRIAL FIBRILLATION (4) Chronic osteomyelitis Code(s): M86.60 - OTHER CHRONIC OSTEOMYELITIS, UNSPECIFIED SITE (5) Chronic respiratory failure Code(s): J96.10 - CHRONIC RESPIRATORY FAILURE, UNSP W HYPOXIA OR HYPERCAPNIA Qualifiers: Respiratory failure complication: hypoxia Qualified Code(s): J96.11 - Chronic respiratory failure with hypoxia (6) Dementia Code(s): F03.90 - UNSPECIFIED DEMENTIA WITHOUT BEHAVIORAL DISTURBANCE Qualifiers: Dementia type: Parkinson's disease Dementia behavioral disturbance: with behavioral disturbance Qualified Code(s): G20 - Parkinson's disease (7) Hyperlipemia Code(s): E78.5 - HYPERLIPIDEMIA, UNSPECIFIED (8) PEG (percutaneous endoscopic gastrostomy) adjustment/replacement/removal Code(s): Z43.1 - ENCOUNTER FOR ATTENTION TO GASTROSTOMY (9) Parkinson disease Code(s): G20 - PARKINSON'S DISEASE (10) Pleural effusion Code(s): J90 - PLEURAL EFFUSION, NOT ELSEWHERE CLASSIFIED (11) Sacral decubitus ulcer Code(s): L89.159 - PRESSURE ULCER OF SACRAL REGION, UNSPECIFIED STAGE Qualifiers: Qualified Code(s): L89.153 - Pressure ulcer of sacral region, stage 3 (12) Ventilator dependent Code(s): Z99.11 - DEPENDENCE ON RESPIRATOR [VENTILATOR] STATUS (13) Sepsis Code(s): A41.9 - SEPSIS, UNSPECIFIED ORGANISM (14) Sepsis Code(s): A41.9 - SEPSIS, UNSPECIFIED ORGANISM (15) Lactate blood increase Code(s): R79.89 - OTHER SPECIFIED ABNORMAL FINDINGS OF BLOOD CHEMISTRY
[2018-05-05] MEDS: COLLAGENASE CLOSTRIDIUM HIST. 30 GRAMS TUBE TP SCH (13:39)
[2018-05-05] MEDS: SODIUM HYPOCHLORITE 0.25%- 473 ML BULK BOTTLE TP SCH (13:39)
[2018-05-05] MEDS: VANCOMYCIN 1,250 MG in DEXTROSE 5%-WATER - 250 ML IVPB SCH (13:40)
[2018-05-05] MEDS: WARFARIN NA 3 MG TABLET GT SCH (17:15)
--- NOTE | 2018-05-05 17:49 | PN ---
Progress Note (short form) - Note Progress Note: Renal follow up for Hypernatremia Pt seen and examined at the bedside remains poorly responsive on Vent Vital Signs Temperature 97.9 F 05/05/18 14:44 Pulse Rate 111 H 05/05/18 15:57 Respiratory Rate 13 05/05/18 14:58 Blood Pressure 92/52 L 05/05/18 14:44 O2 Sat by Pulse Oximetry (%) 99 05/05/18 15:57 Intake & Output 05/02/18 05/03/18 05/04/18 05/05/18 23:59 23:59 23:59 23:59 Intake Total 2320 1100 2910 2100 Output Total 800 2200 1650 800 Balance 1520 -1100 1260 1300 Weight 123.196 kg 109.815 kg 129.183 kg NAD + edema in UE and LE CBC, BMP 05/04/18 08:00 05/03/18 05:50 Current Medications Acetaminophen (Tylenol Oral Solution -) 650 mg PO Q6H PRN PRN Reason: FEVER Last Admin: 05/02/18 08:39 Dose: 650 mg Albuterol/Ipratropium (Duoneb -) 1 amp NEB RQID [facility] Last Admin: 05/05/18 15:59 Dose: 1 amp Amino Acids (Prosource No Carb Liquid Pkt) 30 ml PO BID@0800,1730 [facility] Last Admin: 05/05/18 17:15 Dose: 30 ml Ascorbic Acid (Vitamin C -) 500 mg GT DAILY [facility] Last Admin: 05/05/18 09:12 Dose: 500 mg Calcium Carbonate (Calcium Carb Oral Suspension -) 500 mg PEG BID [facility] Last Admin: 05/05/18 09:13 Dose: 500 mg Carbidopa/Levodopa (Sinemet 25/100 -) 1 each GT BID [facility] Last Admin: 05/05/18 09:12 Dose: 1 each Collagenase (Santyl -) 1 applic TP DAILY [facility]; Protocol Last Admin: 05/05/18 13:39 Dose: 1 applic Donepezil HCl (Aricept -) 10 mg GT HS [facility] Last Admin: 05/04/18 21:46 Dose: 10 mg Ferrous Sulfate (Feosol) 300 mg NGT BID [facility] Last Admin: 05/05/18 09:13 Dose: 300 mg IV Flush (Picc Line Flush) 8 ml IVPUSH PRN PRN PRN Reason: Protocol IV Flush (Triple Lumen Flush) 4 ml IVPUSH PRN PRN PRN Reason: Protocol IV Flush (Picc Line Flush) 8 ml IVPUSH PRN PRN PRN Reason: Protocol Multivitamins/Minerals/Vitamin C (Tab-A-Vit -) 1 tab PO DAILY [facility] Last Admin: 05/05/18 09:12 Dose: 1 tab Oxycodone HCl (Roxicodone -) 5 mg GT Q6H PRN PRN Reason: PAIN LEVEL 7 - 10 Last Admin: 05/05/18 17:17 Dose: 5 mg Potassium Chloride (Potassium Chloride Oral Liquid) 40 meq PO DAILY [facility] Last Admin: 05/05/18 09:12 Dose: 40 meq Ranitidine HCl (Zantac Oral Solution -) 150 mg GT DAILY [facility] Last Admin: 05/05/18 09:12 Dose: 150 mg Sodium Hypochlorite (Dakin's Solution 0.25% (Half-Strength) -) 1 applic TP DAILY [facility] Last Admin: 05/05/18 13:39 Dose: 1 applic Warfarin Sodium (Coumadin -) 5 mg PO TuTh@1800 [facility] Last Admin: 05/04/18 18:03 Dose: 5 mg Warfarin Sodium (Coumadin -) 3 mg GT SuMoWeFrSa@1800 [facility] Last Admin: 05/05/18 17:15 Dose: 3 mg Zinc Sulfate (Orazinc -) 220 mg PO DAILY [facility] Last Admin: 05/05/18 09:12 Dose: 220 mg 82 year old male with history of Afib (on coumadin), chronic respiratory failure (s/p tracheostomy), CVA, CAD, dementia, Parkinson's, and is non-verbal presented from [facility] for numerous ulcers with gram negative bacteremia and found to have hypernatremia and azotemia. #Hypernatremia (water deficit ~5L) #Gram Negative Bacteremia/Sepsis #Pleural effusions #Chronic Respiratory failure #Anemia family wishes pt to not have any further acute Tx including IV Abx or fluids will d/c Abx/IVF Continue free water via feeding tube prognosis rafiq Sneed DO
[2018-05-05] MEDS ORDERED: PT OWN MED DRAWER 7, Y5N ONE (20:44)
[2018-05-05] MEDS: ACETAMINOPHEN 650 MG/20.3 ML ORAL SOLUTION (CUPS) PO PRN (21:02)
[2018-05-05] MEDS: DONEPEZIL HCL 10 MG TABLET (FP) GT SCH (21:04)
[2018-05-06] MEDS: ACETAMINOPHEN 650 MG/20.3 ML ORAL SOLUTION (CUPS) PO PRN (04:03)
[2018-05-06] MEDS: AMINO ACIDS/PROTEIN HYDROLYS 30 ML LIQUID.PKT PO SCH ×2 (08:23→16:30)
[2018-05-06 08:26] LABS: INR 1.46 (0.83-1.09); PROTHROMBIN TIME (PATIENT) 17.3 SEC (9.7-13.0)
[2018-05-06] MEDS: ALBUTEROL SO4 2.5/IPRATROPIUM 0.5 INH SOL 3 ML VIAL.NEB. NEB SCH ×4 (08:30→20:50)
[2018-05-06] MEDS ORDERED: PT OWN MED DRAWER 7, Y5N ONE ×5 (10:17→21:04)
[2018-05-06] MEDS: ASCORBIC ACID 500 MG TABLET (FP) GT SCH (10:20)
[2018-05-06] MEDS: RANITIDINE HCL 150 MG/10 ML UNIT-DOSE GT SCH (10:20)
[2018-05-06] MEDS: MULTIVITAMINS (DAILY MVI) TABLET (FP) PO SCH (10:20)
[2018-05-06] MEDS: CARBIDOPA/LEVODOPA 25/100 TABLET (FP) GT SCH ×2 (10:20→22:05)
[2018-05-06] MEDS: ZINC SULFATE 220 MG CAPSULE (FP) PO SCH (10:20)
[2018-05-06] MEDS: POTASSIUM CHLORIDE ORAL LIQUID 20 MEQ/15 ML PO SCH (10:21)
[2018-05-06] MEDS: FERROUS SO4 300 MG/5 ML ORAL SOLN UNIT DOSE CUPS NGT SCH ×2 (10:21→22:07)
--- NOTE | 2018-05-06 10:24 | PN ---
Progress Note, Physician - Current Medication List Current Medications: Active Medications Acetaminophen (Tylenol Oral Solution -) 650 mg PO Q6H PRN PRN Reason: FEVER Last Admin: 05/06/18 04:03 Dose: 650 mg Albuterol/Ipratropium (Duoneb -) 1 amp NEB RQID [facility] Last Admin: 05/06/18 08:30 Dose: 1 amp Amino Acids (Prosource No Carb Liquid Pkt) 30 ml PO BID@0800,1730 [facility] Last Admin: 05/06/18 08:23 Dose: 30 ml Ascorbic Acid (Vitamin C -) 500 mg GT DAILY [facility] Last Admin: 05/05/18 09:12 Dose: 500 mg Calcium Carbonate (Calcium Carb Oral Suspension -) 500 mg PEG BID [facility] Last Admin: 05/05/18 21:04 Dose: 500 mg Carbidopa/Levodopa (Sinemet 25/100 -) 1 each GT BID [facility] Last Admin: 05/05/18 21:02 Dose: 1 each Collagenase (Santyl -) 1 applic TP DAILY [facility]; Protocol Last Admin: 05/05/18 13:39 Dose: 1 applic Donepezil HCl (Aricept -) 10 mg GT HS [facility] Last Admin: 05/05/18 21:04 Dose: 10 mg Ferrous Sulfate (Feosol) 300 mg NGT BID [facility] Last Admin: 05/05/18 21:02 Dose: 300 mg IV Flush (Picc Line Flush) 8 ml IVPUSH PRN PRN PRN Reason: Protocol IV Flush (Triple Lumen Flush) 4 ml IVPUSH PRN PRN PRN Reason: Protocol IV Flush (Picc Line Flush) 8 ml IVPUSH PRN PRN PRN Reason: Protocol Multivitamins/Minerals/Vitamin C (Tab-A-Vit -) 1 tab PO DAILY [facility] Last Admin: 05/05/18 09:12 Dose: 1 tab Oxycodone HCl (Roxicodone -) 5 mg GT Q6H PRN PRN Reason: PAIN LEVEL 7 - 10 Last Admin: 05/05/18 17:17 Dose: 5 mg Potassium Chloride (Potassium Chloride Oral Liquid) 40 meq PO DAILY [facility] Last Admin: 05/05/18 09:12 Dose: 40 meq Ranitidine HCl (Zantac Oral Solution -) 150 mg GT DAILY [facility] Last Admin: 10/31/18 09:12 Dose: 150 mg Sodium Hypochlorite (Dakin's Solution 0.25% (Half-Strength) -) 1 applic TP DAILY [facility] Last Admin: 05/05/18 13:39 Dose: 1 applic Warfarin Sodium (Coumadin -) 5 mg PO TuTh@1800 [facility] Last Admin: 05/04/18 18:03 Dose: 5 mg Warfarin Sodium (Coumadin -) 3 mg GT SuMoWeFrSa@1800 [facility] Last Admin: 05/05/18 17:15 Dose: 3 mg Zinc Sulfate (Orazinc -) 220 mg PO DAILY [facility] Last Admin: 05/05/18 09:12 Dose: 220 mg - Objective Vital Signs: Vital Signs Temperature 98.9 F 05/06/18 06:00 Pulse Rate 89 05/06/18 06:00 Respiratory Rate 14 05/06/18 09:54 Blood Pressure 131/77 05/06/18 06:00 O2 Sat by Pulse Oximetry (%) 99 05/05/18 15:57 Labs: CBC, BMP 05/04/18 08:00 05/03/18 05:50 INR, PTT INR 1.46 (0.83-1.09) H 05/06/18 07:40
[2018-05-06] MEDS: CALCIUM CARBONATE SUSPENSION - 500 MG/5 ML ML PEG SCH ×2 (10:33→22:07)
--- NOTE | 2018-05-06 11:36 | PN ---
Progress Note (short form) - Note Progress Note: Vented, unresponsive. No acute change in overall condition. For D/C to SNF for comfort care measures only Intake & Output 05/03/18 05/04/18 05/05/18 05/06/18 23:59 23:59 23:59 23:59 Intake Total 1100 2910 4030 1520 Output Total 2200 1650 800 350 Balance -1100 1260 3230 1170 Weight 242 lb 1.6 oz 284 lb 12.8 oz 283 lb 3.2 oz Last Vital Signs Temp Pulse Resp BP Pulse Ox 97.9 F 78 12 116/68 96 05/06/18 10:00 05/06/18 10:00 05/06/18 10:00 05/06/18 10:00 05/06/18 09:00 Active Medications Acetaminophen (Tylenol Oral Solution -) 650 mg PO Q6H PRN PRN Reason: FEVER Last Admin: 05/06/18 04:03 Dose: 650 mg Albuterol/Ipratropium (Duoneb -) 1 amp NEB RQID [facility] Last Admin: 05/06/18 08:30 Dose: 1 amp Amino Acids (Prosource No Carb Liquid Pkt) 30 ml PO BID@0800,1730 [facility] Last Admin: 05/06/18 08:23 Dose: 30 ml Ascorbic Acid (Vitamin C -) 500 mg GT DAILY [facility] Last Admin: 05/06/18 10:20 Dose: 500 mg Calcium Carbonate (Calcium Carb Oral Suspension -) 500 mg PEG BID [facility] Last Admin: 05/06/18 10:33 Dose: 500 mg Carbidopa/Levodopa (Sinemet 25/100 -) 1 each GT BID [facility] Last Admin: 05/06/18 10:20 Dose: 1 each Collagenase (Santyl -) 1 applic TP DAILY [facility]; Protocol Last Admin: 05/05/18 13:39 Dose: 1 applic Donepezil HCl (Aricept -) 10 mg GT HS [facility] Last Admin: 05/05/18 21:04 Dose: 10 mg Fentanyl (Duragesic 50mcg Patch -) 1 patch TD Q72H [facility] Stop: 05/13/18 11:02 Ferrous Sulfate (Feosol) 300 mg NGT BID [facility] Last Admin: 05/06/18 10:21 Dose: 300 mg IV Flush (Triple Lumen Flush) 4 ml IVPUSH PRN PRN PRN Reason: Protocol Miscellaneous (Duragesic Patch Waste) 1 each TD PRN PRN PRN Reason: PAIN Multivitamins/Minerals/Vitamin C (Tab-A-Vit -) 1 tab PO DAILY [facility] Last Admin: 05/06/18 10:20 Dose: 1 tab Oxycodone HCl (Roxicodone -) 5 mg GT Q6H PRN PRN Reason: PAIN LEVEL 7 - 10 Last Admin: 05/05/18 17:17 Dose: 5 mg Potassium Chloride (Potassium Chloride Oral Liquid) 40 meq PO DAILY [facility] Last Admin: 05/06/18 10:21 Dose: 40 meq Ranitidine HCl (Zantac Oral Solution -) 150 mg GT DAILY [facility] Last Admin: 05/06/18 10:20 Dose: 150 mg Sodium Hypochlorite (Dakin's Solution 0.25% (Half-Strength) -) 1 applic TP DAILY [facility] Last Admin: 05/05/18 13:39 Dose: 1 applic Warfarin Sodium (Coumadin -) 5 mg PO TuTh@1800 [facility] Last Admin: 05/04/18 18:03 Dose: 5 mg Warfarin Sodium (Coumadin -) 3 mg GT SuMoWeFrSa@1800 [facility] Last Admin: 05/05/18 17:15 Dose: 3 mg Zinc Sulfate (Orazinc -) 220 mg PO DAILY [facility] Last Admin: 05/06/18 10:20 Dose: 220 mg Gen: vented, unresponsive Heart: RRR Lung: scattered rhonchi Abd: soft, nontender Ext: + edema Laboratory Results - last 24 hr 05/06/18 07:40 PT with INR 17.30 H INR 1.46 H A/P Chronic Respiratory Failure Decubitus Ulcer Infection UTI Gram Negative Bacteremia Sepsis Lactic Acidosis LV Diastolic Dysfunction Atrial Fibrillation h/o CVA Parkinsons Dementia - For D/C back to [facility] for comfort care measures only Dr Fernandes
--- NOTE | 2018-05-06 12:33 | DS ---
Physical Examination Vital Signs: Vital Signs Temperature 97.9 F 05/06/18 10:00 Pulse Rate 78 05/06/18 10:00 Respiratory Rate 12 05/06/18 10:00 Blood Pressure 116/68 05/06/18 10:00 O2 Sat by Pulse Oximetry (%) 96 05/06/18 09:00 Constitutional: Yes: Calm, Other (unresponsive on vent) Neck: Yes: Other (trach) Cardiovascular: Yes: Regular Rate and Rhythm, S1, S2 Respiratory: Yes: Mechanically Ventilated Gastrointestinal: Yes: Normal Bowel Sounds, Soft, Other ( g tube) ...Rectal Exam: Yes: Other Renal/: Yes: Olson Present Edema: Yes Labs: CBC, BMP 05/04/18 08:00 05/03/18 05:50 Discharge Summary Reason For Visit: DECUBITUS ULCER/SEPSIS/DECUBITUS ULCER OF SACRAL Current Active Problems Anemia (Acute) Electrolyte abnormality (Acute) Generalized edema (Acute) Lactate blood increase (Acute) Sepsis (Acute) Sepsis (Acute) Hospital Course: HISTORY OF PRESENT ILLNESS: Patient is an 82 year old male with history of Afib (on coumadin), chronic respiratory failure (s/p tracheostomy), CVA, CAD, dementia, Parkinson's, presents from [facility] for numerous ulcers of the upper extremity, lower extremity, and sacrum. Patient was last admitted in 07/2017 for sacral ulcer, treated with Zosyn, and surgical debridement. Patient is non-verbal. His at bedside states that an Xray was done at [facility] that was concerning for osteomyelitis, which prompted this hospital visit. ER course was notable for: (1) Ofirmev, Zosyn, Vancomycin, IV LR (2) in hospital seen by surgery and ortho for wounds no surgical intervention seen by ID for iv abx palliative care team met with made dnr/dni and comfort care not a candidate to wean off the vent Condition: Guarded - Instructions Diet, Activity, Other Instructions: DNR /DNI donot hospitalize comfort care no blood draws pain control Referrals: Jerzy Callaway MD [Primary Care Provider] - Disposition: [facility] - Home Medications Comprehensive Discharge Medication List: Ambulatory Orders Albuterol 2.5/Ipratropium 0.5 [Duoneb -] 1 neb IH Q6H 03/20/16 Ascorbic Acid [Vitamin C -] 500 mg GT DAILY 03/20/16 Carbidopa/Levodopa [Carbidopa-Levodopa 25-100 Tab] 1 each GT BID 03/20/16 Aa/[place]/Arg/C/Zn/Cu [Lps Critical Care Liquid] 30 ml GT DAILY Donepezil HCl [Aricept -] 10 mg GT DAILY 07/09/16 Collagenase Clostridium Hist. [Santyl -] 1 applic TP DAILY tube 07/14/16 Bacitracin - [Bacitracin Topical Ointment -] 1 applic TP DAILY tube 09/05/16 Lactobacillus Acidophilus [Bacid -] 1 tab GT DAILY tab 09/05/16 Scopolamine Hydrobromide [Transderm-Scop -] 1 patch TD Q72H patch.td72 Acetaminophen [Tylenol .Regular Strength -] 650 mg GT ASDIR PRN 07/25/17 Albuterol 2.5/Ipratropium 0.5 [Duoneb -] 1 neb NEB Q4H 07/25/17 Calcium Carbonate/Vitamin D3 [Oyster Shell 500-Vit D3 200 Tb] 1 each GT DAILY Furosemide [Lasix -] 40 mg GT BID@0600,1400 07/25/17 Loperamide HCl [Loperamide] 2 mg GT Q6H 07/25/17 Potassium Chloride Oral Soln [KCl Oral Solution -] 40 meq GT DAILY 07/25/17 Ranitidine Oral Solution [Zantac Oral Solution -] 150 mg GT DAILY 07/25/17 Silver Sulfadiazine 1% Top Cr [Silvadene -] 1 applic TP DAILY 07/25/17 Warfarin Na [Coumadin -] 3.5 mg GT DAILY@1800 07/25/17 Zinc Sulfate [Orazinc -] 220 mg GT BID 07/25/17 oxyCODONE HCL [Roxicodone -] 5 mg GT Q6H 07/25/17
[2018-05-06] MEDS: fentaNYL 50mcg/hr PATCH.TD72 TD SCH (12:42)
[2018-05-06] MEDS: SODIUM HYPOCHLORITE 0.25%- 473 ML BULK BOTTLE TP SCH (12:44)
[2018-05-06] MEDS: COLLAGENASE CLOSTRIDIUM HIST. 30 GRAMS TUBE TP SCH (12:44)
[2018-05-06] MEDS: SCOPOLAMINE HYDROBROMIDE 1 PATCH PATCH.TD72 TD SCH (16:30)
[2018-05-06] MEDS: WARFARIN NA 5 MG TABLET (UD) PO SCH (17:56)
[2018-05-06] MEDS: DONEPEZIL HCL 10 MG TABLET (FP) GT SCH (22:06)
[2018-05-07] MEDS ORDERED: PT OWN MED DRAWER 7, Y5N ONE ×2 (05:54→08:32)
[2018-05-07] MEDS: ALBUTEROL SO4 2.5/IPRATROPIUM 0.5 INH SOL 3 ML VIAL.NEB. NEB SCH ×4 (08:18→21:05)
[2018-05-07 08:44] LABS: INR 1.51 (0.83-1.09); PROTHROMBIN TIME (PATIENT) 17.9 SEC (9.7-13.0)
[2018-05-07] MEDS: AMINO ACIDS/PROTEIN HYDROLYS 30 ML LIQUID.PKT PO SCH ×2 (09:45→17:49)
[2018-05-07] MEDS: FERROUS SO4 300 MG/5 ML ORAL SOLN UNIT DOSE CUPS NGT SCH ×2 (09:45→21:42)
[2018-05-07] MEDS: POTASSIUM CHLORIDE ORAL LIQUID 20 MEQ/15 ML PO SCH (09:45)
[2018-05-07] MEDS: RANITIDINE HCL 150 MG/10 ML UNIT-DOSE GT SCH (09:46)
[2018-05-07] MEDS: ZINC SULFATE 220 MG CAPSULE (FP) PO SCH (09:47)
[2018-05-07] MEDS: MULTIVITAMINS (DAILY MVI) TABLET (FP) PO SCH (09:47)
[2018-05-07] MEDS: CARBIDOPA/LEVODOPA 25/100 TABLET (FP) GT SCH ×2 (09:47→21:42)
[2018-05-07] MEDS: CALCIUM CARBONATE SUSPENSION - 500 MG/5 ML ML PEG SCH ×2 (09:48→21:43)
[2018-05-07] MEDS: ASCORBIC ACID 500 MG TABLET (FP) GT SCH (09:49)
--- NOTE | 2018-05-07 11:16 | PN ---
Progress Note, Physician Chief Complaint: patient seen and examiend on vet non verbal awaitng bed at [facility] - Current Medication List Current Medications: Active Medications Acetaminophen (Tylenol Oral Solution -) 650 mg PO Q6H PRN PRN Reason: FEVER Last Admin: 05/06/18 04:03 Dose: 650 mg Albuterol/Ipratropium (Duoneb -) 1 amp NEB RQID [facility] Last Admin: 05/07/18 08:18 Dose: 1 amp Amino Acids (Prosource No Carb Liquid Pkt) 30 ml PO BID@0800,1730 [facility] Last Admin: 05/07/18 09:45 Dose: 30 ml Ascorbic Acid (Vitamin C -) 500 mg GT DAILY [facility] Last Admin: 05/07/18 09:49 Dose: 500 mg Calcium Carbonate (Calcium Carb Oral Suspension -) 500 mg PEG BID [facility] Last Admin: 05/07/18 09:48 Dose: 500 mg Carbidopa/Levodopa (Sinemet 25/100 -) 1 each GT BID [facility] Last Admin: 05/07/18 09:47 Dose: 1 each Collagenase (Santyl -) 1 applic TP DAILY [facility]; Protocol Last Admin: 05/06/18 12:44 Dose: 1 applic Donepezil HCl (Aricept -) 10 mg GT HS [facility] Last Admin: 05/06/18 22:06 Dose: 10 mg Fentanyl (Duragesic 50mcg Patch -) 1 patch TD Q72H [facility] Stop: 05/13/18 11:02 Last Admin: 05/06/18 12:42 Dose: 1 patch Ferrous Sulfate (Feosol) 300 mg NGT BID [facility] Last Admin: 05/07/18 09:45 Dose: 300 mg IV Flush (Triple Lumen Flush) 4 ml IVPUSH PRN PRN PRN Reason: Protocol Miscellaneous (Duragesic Patch Waste) 1 each TD PRN PRN PRN Reason: PAIN Multivitamins/Minerals/Vitamin C (Tab-A-Vit -) 1 tab PO DAILY [facility] Last Admin: 05/07/18 09:47 Dose: 1 tab Oxycodone HCl (Roxicodone -) 5 mg GT Q6H PRN PRN Reason: PAIN LEVEL 7 - 10 Last Admin: 05/05/18 17:17 Dose: 5 mg Potassium Chloride (Potassium Chloride Oral Liquid) 40 meq PO DAILY [facility] Last Admin: 05/07/18 09:45 Dose: 40 meq Ranitidine HCl (Zantac Oral Solution -) 150 mg GT DAILY [facility] Last Admin: 05/07/18 09:46 Dose: 150 mg Scopolamine HBr (Transderm-Scop -) 1 patch TD Q72H [facility] Last Admin: 05/06/18 16:30 Dose: 1 patch Sodium Hypochlorite (Dakin's Solution 0.25% (Half-Strength) -) 1 applic TP DAILY [facility] Last Admin: 05/06/18 12:44 Dose: 1 applic Warfarin Sodium (Coumadin -) 5 mg PO TuTh@1800 [facility] Last Admin: 05/06/18 17:56 Dose: 5 mg Warfarin Sodium (Coumadin -) 3 mg GT SuMoWeFrSa@1800 [facility] Last Admin: 05/05/18 17:15 Dose: 3 mg Zinc Sulfate (Orazinc -) 220 mg PO DAILY [facility] Last Admin: 05/07/18 09:47 Dose: 220 mg - Objective Vital Signs: Vital Signs Temperature 98.6 F 05/07/18 06:00 Pulse Rate 110 H 05/07/18 06:00 Respiratory Rate 20 05/07/18 06:00 Blood Pressure 110/67 05/07/18 06:00 O2 Sat by Pulse Oximetry (%) 100 05/06/18 21:30 Constitutional: Yes: Calm Neck: Yes: Other (trach) Cardiovascular: Yes: Regular Rate and Rhythm, S1, S2 Respiratory: Yes: Mechanically Ventilated Gastrointestinal: Yes: Normal Bowel Sounds, Soft, Other ( g tube) Genitourinary: Yes: Olson Present Edema: Yes Labs: CBC, BMP 05/04/18 08:00 05/03/18 05:50 INR, PTT INR 1.51 (0.83-1.09) H 05/07/18 08:00 Problem List - Problems (1) Sepsis Assessment/Plan: patient now DNR/DNI comfort care DNH no blood draws stop all abx awaiting bed at [facility] seen by vascular surgery not a candidate for debridement of sacral wounds seen by ortho for elbow wound not surgical intervention needed frequent turn and position Code(s): A41.9 - SEPSIS, UNSPECIFIED ORGANISM (2) A-fib Assessment/Plan: on coumadin Code(s): I48.91 - UNSPECIFIED ATRIAL FIBRILLATION Qualifiers: Atrial fibrillation type: chronic Qualified Code(s): I48.2 - Chronic atrial fibrillation (3) Chronic respiratory failure Assessment/Plan: vent support assist control not a candidate for weaning nebulizer Code(s): J96.10 - CHRONIC RESPIRATORY FAILURE, UNSP W HYPOXIA OR HYPERCAPNIA Qualifiers: Respiratory failure complication: hypoxia Qualified Code(s): J96.11 - Chronic respiratory failure with hypoxia (4) Dementia Assessment/Plan: sinemet and donezipil Code(s): F03.90 - UNSPECIFIED DEMENTIA WITHOUT BEHAVIORAL DISTURBANCE Qualifiers: Dementia type: Parkinson's disease Dementia behavioral disturbance: with behavioral disturbance Qualified Code(s): G20 - Parkinson's disease (5) Electrolyte abnormality Assessment/Plan: no more blood draws Code(s): E87.8 - OTH DISORDERS OF ELECTROLYTE AND FLUID BALANCE, NEC Assessment/Plan DNR DNI DNH no blood draws
--- NOTE | 2018-05-07 12:26 | PN ---
Progress Note, Physician - Current Medication List Current Medications: Active Medications Acetaminophen (Tylenol Oral Solution -) 650 mg PO Q6H PRN PRN Reason: FEVER Last Admin: 05/06/18 04:03 Dose: 650 mg Albuterol/Ipratropium (Duoneb -) 1 amp NEB RQID [facility] Last Admin: 05/07/18 08:18 Dose: 1 amp Amino Acids (Prosource No Carb Liquid Pkt) 30 ml PO BID@0800,1730 [facility] Last Admin: 05/07/18 09:45 Dose: 30 ml Ascorbic Acid (Vitamin C -) 500 mg GT DAILY [facility] Last Admin: 05/07/18 09:49 Dose: 500 mg Calcium Carbonate (Calcium Carb Oral Suspension -) 500 mg PEG BID [facility] Last Admin: 05/07/18 09:48 Dose: 500 mg Carbidopa/Levodopa (Sinemet 25/100 -) 1 each GT BID [facility] Last Admin: 05/07/18 09:47 Dose: 1 each Collagenase (Santyl -) 1 applic TP DAILY [facility]; Protocol Last Admin: 05/06/18 12:44 Dose: 1 applic Donepezil HCl (Aricept -) 10 mg GT HS [facility] Last Admin: 05/06/18 22:06 Dose: 10 mg Fentanyl (Duragesic 50mcg Patch -) 1 patch TD Q72H [facility] Stop: 05/13/18 11:02 Last Admin: 05/06/18 12:42 Dose: 1 patch Ferrous Sulfate (Feosol) 300 mg NGT BID [facility] Last Admin: 05/07/18 09:45 Dose: 300 mg IV Flush (Triple Lumen Flush) 4 ml IVPUSH PRN PRN PRN Reason: Protocol Miscellaneous (Duragesic Patch Waste) 1 each TD PRN PRN PRN Reason: PAIN Multivitamins/Minerals/Vitamin C (Tab-A-Vit -) 1 tab PO DAILY [facility] Last Admin: 05/07/18 09:47 Dose: 1 tab Oxycodone HCl (Roxicodone -) 5 mg GT Q6H PRN PRN Reason: PAIN LEVEL 7 - 10 Last Admin: 05/05/18 17:17 Dose: 5 mg Potassium Chloride (Potassium Chloride Oral Liquid) 40 meq PO DAILY [facility] Last Admin: 05/07/18 09:45 Dose: 40 meq Ranitidine HCl (Zantac Oral Solution -) 150 mg GT DAILY [facility] Last Admin: 05/07/18 09:46 Dose: 150 mg Scopolamine HBr (Transderm-Scop -) 1 patch TD Q72H [facility] Last Admin: 05/06/18 16:30 Dose: 1 patch Sodium Hypochlorite (Dakin's Solution 0.25% (Half-Strength) -) 1 applic TP DAILY [facility] Last Admin: 05/06/18 12:44 Dose: 1 applic Warfarin Sodium (Coumadin -) 5 mg PO TuTh@1800 [facility] Last Admin: 05/06/18 17:56 Dose: 5 mg Warfarin Sodium (Coumadin -) 3 mg GT SuMoWeFrSa@1800 [facility] Last Admin: 05/05/18 17:15 Dose: 3 mg Zinc Sulfate (Orazinc -) 220 mg PO DAILY [facility] Last Admin: 05/07/18 09:47 Dose: 220 mg - Objective Vital Signs: Vital Signs Temperature 98.6 F 05/07/18 06:00 Pulse Rate 97 H 05/07/18 10:17 Respiratory Rate 15 05/07/18 10:17 Blood Pressure 110/67 05/07/18 06:00 O2 Sat by Pulse Oximetry (%) 99 05/07/18 10:17 Labs: CBC, BMP 05/04/18 08:00 05/03/18 05:50 INR, PTT INR 1.51 (0.83-1.09) H 05/07/18 08:00
[2018-05-07] MEDS: SODIUM HYPOCHLORITE 0.25%- 473 ML BULK BOTTLE TP SCH (12:33)
[2018-05-07] MEDS: COLLAGENASE CLOSTRIDIUM HIST. 30 GRAMS TUBE TP SCH (12:33)
--- NOTE | 2018-05-07 13:46 | PN ---
Progress Note (short form) - Note Progress Note: PULMONARY MINIMALLY RESPONSIVE VSS/AFEBRILE PALE DIMINISHED B/L BS S1S2 BS+ PEG LOWER EXT 1-2+ EDEMA MICRO/LABS/RADIOGRAPHS/NOTES REVIEWED PSEUDOMANAS IN BLOOD CULTURE POLYMICROBIAL DECUBITI A/P Chronic Respiratory Failure/Vent support Decubitus Ulcer Infection UTI Gram Negative Bacteremia Sepsis Lactic Acidosis LV Diastolic Dysfunction Atrial Fibrillation h/o CVA Parkinsons Dementia - completed antibiotics - inhaled bronchodilators - continue volume assist control - poor candidate for weaning due to mental status - replete lytes - enteral feeds - DVT/GI prophylaxis - awaiting transfer to vent unit Renaldo ROMANO MD
[2018-05-07] MEDS: WARFARIN NA 3 MG TABLET GT SCH (17:49)
[2018-05-07] MEDS: DONEPEZIL HCL 10 MG TABLET (FP) GT SCH (21:43)
[2018-05-08] MEDS ORDERED: INSULIN (LEVEMIR) 100 UNITS/ML UNITS SQ ONE (07:08)
[2018-05-08] MEDS ORDERED: INSULIN (NOVOLOG MIX 70/30) 100 UNITS/ML MDV SQ ONE (07:08)
[2018-05-08] MEDS ORDERED: INSULIN (NOVOLOG) ASPART 100 UNITS/ML 10ML VIAL ONE (07:08)
[2018-05-08] MEDS: ALBUTEROL SO4 2.5/IPRATROPIUM 0.5 INH SOL 3 ML VIAL.NEB. NEB SCH ×2 (08:28→11:41)
[2018-05-08] MEDS: AMINO ACIDS/PROTEIN HYDROLYS 30 ML LIQUID.PKT PO SCH ×2 (08:50→17:20)
[2018-05-08] MEDS: POTASSIUM CHLORIDE ORAL LIQUID 20 MEQ/15 ML PO SCH (10:06)
[2018-05-08] MEDS: CARBIDOPA/LEVODOPA 25/100 TABLET (FP) GT SCH ×2 (10:06→22:02)
[2018-05-08] MEDS: FERROUS SO4 300 MG/5 ML ORAL SOLN UNIT DOSE CUPS NGT SCH ×2 (10:06→22:02)
[2018-05-08] MEDS: ASCORBIC ACID 500 MG TABLET (FP) GT SCH (10:06)
[2018-05-08] MEDS: RANITIDINE HCL 150 MG/10 ML UNIT-DOSE GT SCH (10:06)
[2018-05-08] MEDS: ZINC SULFATE 220 MG CAPSULE (FP) PO SCH (10:07)
[2018-05-08] MEDS: CALCIUM CARBONATE SUSPENSION - 500 MG/5 ML ML PEG SCH ×2 (10:07→22:02)
[2018-05-08] MEDS: MULTIVITAMINS (DAILY MVI) TABLET (FP) PO SCH (10:08)
--- NOTE | 2018-05-08 11:00 | PN ---
Progress Note, Physician - Current Medication List Current Medications: Active Medications Acetaminophen (Tylenol Oral Solution -) 650 mg PO Q6H PRN PRN Reason: FEVER Last Admin: 05/06/18 04:03 Dose: 650 mg Albuterol/Ipratropium (Duoneb -) 1 amp NEB RQID [facility] Last Admin: 05/08/18 08:28 Dose: 1 amp Amino Acids (Prosource No Carb Liquid Pkt) 30 ml PO BID@0800,1730 [facility] Last Admin: 05/08/18 08:50 Dose: 30 ml Ascorbic Acid (Vitamin C -) 500 mg GT DAILY [facility] Last Admin: 05/08/18 10:06 Dose: 500 mg Calcium Carbonate (Calcium Carb Oral Suspension -) 500 mg PEG BID [facility] Last Admin: 05/08/18 10:07 Dose: 500 mg Carbidopa/Levodopa (Sinemet 25/100 -) 1 each GT BID [facility] Last Admin: 05/08/18 10:06 Dose: 1 each Collagenase (Santyl -) 1 applic TP DAILY [facility]; Protocol Last Admin: 05/07/18 12:33 Dose: 1 applic Donepezil HCl (Aricept -) 10 mg GT HS [facility] Last Admin: 05/07/18 21:43 Dose: 10 mg Fentanyl (Duragesic 50mcg Patch -) 1 patch TD Q72H [facility] Stop: 05/13/18 11:02 Last Admin: 05/06/18 12:42 Dose: 1 patch Ferrous Sulfate (Feosol) 300 mg NGT BID [facility] Last Admin: 05/08/18 10:06 Dose: 300 mg IV Flush (Triple Lumen Flush) 4 ml IVPUSH PRN PRN PRN Reason: Protocol Miscellaneous (Duragesic Patch Waste) 1 each TD PRN PRN PRN Reason: PAIN Multivitamins/Minerals/Vitamin C (Tab-A-Vit -) 1 tab PO DAILY [facility] Last Admin: 05/08/18 10:08 Dose: 1 tab Oxycodone HCl (Roxicodone -) 5 mg GT Q6H PRN PRN Reason: PAIN LEVEL 7 - 10 Last Admin: 05/05/18 17:17 Dose: 5 mg Potassium Chloride (Potassium Chloride Oral Liquid) 40 meq PO DAILY [facility] Last Admin: 05/08/18 10:06 Dose: 40 meq Ranitidine HCl (Zantac Oral Solution -) 150 mg GT DAILY [facility] Last Admin: 05/08/18 10:06 Dose: 150 mg Scopolamine HBr (Transderm-Scop -) 1 patch TD Q72H [facility] Last Admin: 05/06/18 16:30 Dose: 1 patch Sodium Hypochlorite (Dakin's Solution 0.25% (Half-Strength) -) 1 applic TP DAILY [facility] Last Admin: 05/07/18 12:33 Dose: 1 applic Warfarin Sodium (Coumadin -) 5 mg PO TuTh@1800 [facility] Last Admin: 05/06/18 17:56 Dose: 5 mg Warfarin Sodium (Coumadin -) 3 mg GT SuMoWeFrSa@1800 [facility] Last Admin: 05/07/18 17:49 Dose: 3 mg Zinc Sulfate (Orazinc -) 220 mg PO DAILY [facility] Last Admin: 05/08/18 10:07 Dose: 220 mg - Objective Vital Signs: Vital Signs Temperature 98.8 F 05/08/18 10:00 Pulse Rate 82 05/08/18 10:00 Respiratory Rate 16 05/08/18 10:00 Blood Pressure 102/62 05/08/18 10:00 O2 Sat by Pulse Oximetry (%) 99 05/08/18 08:27 Cardiovascular: Yes: S1, S2 Respiratory: Yes: Mechanically Ventilated Labs: CBC, BMP 05/04/18 08:00 05/03/18 05:50 INR, PTT INR 1.51 (0.83-1.09) H 05/07/18 08:00 Problem List - Problems (1) Sepsis Code(s): A41.9 - SEPSIS, UNSPECIFIED ORGANISM (2) A-fib Code(s): I48.91 - UNSPECIFIED ATRIAL FIBRILLATION Qualifiers: Atrial fibrillation type: chronic Qualified Code(s): I48.2 - Chronic atrial fibrillation (3) CHF (congestive heart failure) Code(s): I50.9 - HEART FAILURE, UNSPECIFIED (4) Pressure ulcer Code(s): L89.90 - PRESSURE ULCER OF UNSPECIFIED SITE, UNSPECIFIED STAGE (5) Respiratory failure Code(s): J96.90 - RESPIRATORY FAILURE, UNSP, UNSP W HYPOXIA OR HYPERCAPNIA Qualifiers: Chronicity: acute Respiratory failure complication: hypoxia and hypercapnia Qualified Code(s): J96.01 - Acute respiratory failure with hypoxia Assessment/Plan - Problems (1) Sepsis Assessment/Plan: patient now DNR/DNI comfort care DNH no blood draws stop all abx awaiting bed at [facility] seen by vascular surgery not a candidate for debridement of sacral wounds seen by ortho for elbow wound not surgical intervention needed frequent turn and position Code(s): A41.9 - SEPSIS, UNSPECIFIED ORGANISM (2) A-fib Assessment/Plan: on coumadin Code(s): I48.91 - UNSPECIFIED ATRIAL FIBRILLATION Qualifiers: Atrial fibrillation type: chronic Qualified Code(s): I48.2 - Chronic atrial fibrillation (3) Chronic respiratory failure Assessment/Plan: vent support assist control not a candidate for weaning nebulizer Code(s): J96.10 - CHRONIC RESPIRATORY FAILURE, UNSP W HYPOXIA OR HYPERCAPNIA Qualifiers: Respiratory failure complication: hypoxia Qualified Code(s): J96.11 - Chronic respiratory failure with hypoxia (4) Dementia Assessment/Plan: sinemet and donezipil Code(s): F03.90 - UNSPECIFIED DEMENTIA WITHOUT BEHAVIORAL DISTURBANCE Qualifiers: Dementia type: Parkinson's disease Dementia behavioral disturbance: with behavioral disturbance Qualified Code(s): G20 - Parkinson's disease (5) Electrolyte abnormality Assessment/Plan: no more blood draws Code(s): E87.8 - OTH DISORDERS OF ELECTROLYTE AND FLUID BALANCE, NEC Assessment/Plan DNR DNI DNH no blood draws
[2018-05-08] MEDS: COLLAGENASE CLOSTRIDIUM HIST. 30 GRAMS TUBE TP SCH (11:20)
--- NOTE | 2018-05-08 12:31 | PN ---
Progress Note, Physician - Current Medication List Current Medications: Active Medications Acetaminophen (Tylenol Oral Solution -) 650 mg PO Q6H PRN PRN Reason: FEVER Last Admin: 05/06/18 04:03 Dose: 650 mg Albuterol/Ipratropium (Duoneb -) 1 amp NEB RQID [facility] Last Admin: 05/08/18 11:41 Dose: 1 amp Amino Acids (Prosource No Carb Liquid Pkt) 30 ml PO BID@0800,1730 [facility] Last Admin: 05/08/18 08:50 Dose: 30 ml Ascorbic Acid (Vitamin C -) 500 mg GT DAILY [facility] Last Admin: 05/08/18 10:06 Dose: 500 mg Calcium Carbonate (Calcium Carb Oral Suspension -) 500 mg PEG BID [facility] Last Admin: 05/08/18 10:07 Dose: 500 mg Carbidopa/Levodopa (Sinemet 25/100 -) 1 each GT BID [facility] Last Admin: 05/08/18 10:06 Dose: 1 each Collagenase (Santyl -) 1 applic TP DAILY [facility]; Protocol Last Admin: 05/07/18 12:33 Dose: 1 applic Donepezil HCl (Aricept -) 10 mg GT HS [facility] Last Admin: 05/07/18 21:43 Dose: 10 mg Fentanyl (Duragesic 50mcg Patch -) 1 patch TD Q72H [facility] Stop: 05/13/18 11:02 Last Admin: 05/06/18 12:42 Dose: 1 patch Ferrous Sulfate (Feosol) 300 mg NGT BID [facility] Last Admin: 05/08/18 10:06 Dose: 300 mg IV Flush (Triple Lumen Flush) 4 ml IVPUSH PRN PRN PRN Reason: Protocol Miscellaneous (Duragesic Patch Waste) 1 each TD PRN PRN PRN Reason: PAIN Multivitamins/Minerals/Vitamin C (Tab-A-Vit -) 1 tab PO DAILY [facility] Last Admin: 05/08/18 10:08 Dose: 1 tab Oxycodone HCl (Roxicodone -) 5 mg GT Q6H PRN PRN Reason: PAIN LEVEL 7 - 10 Last Admin: 05/05/18 17:17 Dose: 5 mg Potassium Chloride (Potassium Chloride Oral Liquid) 40 meq PO DAILY [facility] Last Admin: 05/08/18 10:06 Dose: 40 meq Ranitidine HCl (Zantac Oral Solution -) 150 mg GT DAILY [facility] Last Admin: 05/08/18 10:06 Dose: 150 mg Scopolamine HBr (Transderm-Scop -) 1 patch TD Q72H [facility] Last Admin: 05/06/18 16:30 Dose: 1 patch Sodium Hypochlorite (Dakin's Solution 0.25% (Half-Strength) -) 1 applic TP DAILY [facility] Last Admin: 05/07/18 12:33 Dose: 1 applic Warfarin Sodium (Coumadin -) 5 mg PO TuTh@1800 [facility] Last Admin: 05/06/18 17:56 Dose: 5 mg Warfarin Sodium (Coumadin -) 3 mg GT SuMoWeFrSa@1800 [facility] Last Admin: 05/07/18 17:49 Dose: 3 mg Zinc Sulfate (Orazinc -) 220 mg PO DAILY [facility] Last Admin: 05/08/18 10:07 Dose: 220 mg - Objective Vital Signs: Vital Signs Temperature 98.8 F 05/08/18 10:00 Pulse Rate 82 05/08/18 10:00 Respiratory Rate 18 05/08/18 11:40 Blood Pressure 102/62 05/08/18 10:00 O2 Sat by Pulse Oximetry (%) 99 05/08/18 08:27 Labs: CBC, BMP 05/04/18 08:00 05/03/18 05:50 INR, PTT INR 1.51 (0.83-1.09) H 05/07/18 08:00
--- NOTE | 2018-05-08 13:46 | PN ---
Progress Note (short form) - Note Progress Note: PULMONARY MINIMALLY RESPONSIVE VSS/AFEBRILE PALE DIMINISHED B/L BS S1S2 BS+ PEG/RECTAL TUBE/GARNICA LOWER EXT 1-2+ EDEMA MICRO/LABS/RADIOGRAPHS/NOTES REVIEWED PSEUDOMANAS IN BLOOD CULTURE POLYMICROBIAL DECUBITI A/P Chronic Respiratory Failure/Vent support Decubitus Ulcer Infection UTI Gram Negative Bacteremia Sepsis Lactic Acidosis LV Diastolic Dysfunction Atrial Fibrillation h/o CVA Parkinsons Dementia - completed antibiotics - inhaled bronchodilators - continue volume assist control - poor candidate for weaning due to mental status - replete lytes - enteral feeds - DVT/GI prophylaxis - awaiting transfer to vent unit Renaldo ROMANO MD
[2018-05-08] MEDS: WARFARIN NA 3 MG TABLET GT SCH (17:19)
[2018-05-08] MEDS: SODIUM HYPOCHLORITE 0.25%- 473 ML BULK BOTTLE TP SCH (17:20)
[2018-05-08] MEDS: DONEPEZIL HCL 10 MG TABLET (FP) GT SCH (22:03)
[2018-05-09] MEDS ORDERED: INSULIN (NOVOLOG MIX 70/30) 100 UNITS/ML MDV SQ ONE (07:04)
[2018-05-09] MEDS ORDERED: INSULIN (NOVOLOG) ASPART 100 UNITS/ML 10ML VIAL ONE ×2 (07:04→21:08)
[2018-05-09] MEDS ORDERED: INSULIN (LEVEMIR) 100 UNITS/ML UNITS SQ ONE (07:04)
[2018-05-09] MEDS: AMINO ACIDS/PROTEIN HYDROLYS 30 ML LIQUID.PKT PO SCH ×2 (08:17→17:11)
[2018-05-09] MEDS: MULTIVITAMINS (DAILY MVI) TABLET (FP) PO SCH (09:32)
[2018-05-09] MEDS: CARBIDOPA/LEVODOPA 25/100 TABLET (FP) GT SCH ×2 (09:32→21:49)
[2018-05-09] MEDS: ASCORBIC ACID 500 MG TABLET (FP) GT SCH (09:32)
[2018-05-09] MEDS: POTASSIUM CHLORIDE ORAL LIQUID 20 MEQ/15 ML PO SCH (09:33)
[2018-05-09] MEDS: FERROUS SO4 300 MG/5 ML ORAL SOLN UNIT DOSE CUPS NGT SCH ×2 (09:33→21:49)
[2018-05-09] MEDS: CALCIUM CARBONATE SUSPENSION - 500 MG/5 ML ML PEG SCH ×2 (09:37→21:49)
[2018-05-09] MEDS: RANITIDINE HCL 150 MG/10 ML UNIT-DOSE GT SCH (09:38)
[2018-05-09] MEDS: ZINC SULFATE 220 MG CAPSULE (FP) PO SCH (09:39)
[2018-05-09] MEDS: SODIUM HYPOCHLORITE 0.25%- 473 ML BULK BOTTLE TP SCH (12:36)
[2018-05-09] MEDS: COLLAGENASE CLOSTRIDIUM HIST. 30 GRAMS TUBE TP SCH (12:36)
[2018-05-09] MEDS: fentaNYL 50mcg/hr PATCH.TD72 TD SCH (12:44)
[2018-05-09] MEDS: FENTANYL PATCH WASTE TD PRN (12:49)
--- NOTE | 2018-05-09 13:10 | PN ---
Progress Note, Physician - Current Medication List Current Medications: Active Medications Acetaminophen (Tylenol Oral Solution -) 650 mg PO Q6H PRN PRN Reason: FEVER Last Admin: 05/06/18 04:03 Dose: 650 mg Amino Acids (Prosource No Carb Liquid Pkt) 30 ml PO BID@0800,1730 [facility] Last Admin: 05/09/18 08:17 Dose: 30 ml Ascorbic Acid (Vitamin C -) 500 mg GT DAILY [facility] Last Admin: 05/09/18 09:32 Dose: 500 mg Calcium Carbonate (Calcium Carb Oral Suspension -) 500 mg PEG BID [facility] Last Admin: 05/09/18 09:37 Dose: 500 mg Carbidopa/Levodopa (Sinemet 25/100 -) 1 each GT BID [facility] Last Admin: 05/09/18 09:32 Dose: 1 each Collagenase (Santyl -) 1 applic TP DAILY [facility]; Protocol Last Admin: 05/09/18 12:36 Dose: 1 applic Donepezil HCl (Aricept -) 10 mg GT HS [facility] Last Admin: 05/08/18 22:03 Dose: 10 mg Fentanyl (Duragesic 50mcg Patch -) 1 patch TD Q72H [facility] Stop: 05/13/18 11:02 Last Admin: 05/09/18 12:44 Dose: 1 patch Ferrous Sulfate (Feosol) 300 mg NGT BID [facility] Last Admin: 05/09/18 09:33 Dose: 300 mg IV Flush (Triple Lumen Flush) 4 ml IVPUSH PRN PRN PRN Reason: Protocol Miscellaneous (Duragesic Patch Waste) 1 each TD PRN PRN PRN Reason: PAIN Last Admin: 05/09/18 12:49 Dose: 1 each Multivitamins/Minerals/Vitamin C (Tab-A-Vit -) 1 tab PO DAILY [facility] Last Admin: 05/09/18 09:32 Dose: 1 tab Potassium Chloride (Potassium Chloride Oral Liquid) 40 meq PO DAILY [facility] Last Admin: 05/09/18 09:33 Dose: 40 meq Ranitidine HCl (Zantac Oral Solution -) 150 mg GT DAILY [facility] Last Admin: 05/09/18 09:38 Dose: 150 mg Scopolamine HBr (Transderm-Scop -) 1 patch TD Q72H [facility] Last Admin: 05/06/18 16:30 Dose: 1 patch Sodium Hypochlorite (Dakin's Solution 0.25% (Half-Strength) -) 1 applic TP DAILY [facility] Last Admin: 05/09/18 12:36 Dose: 1 applic Zinc Sulfate (Orazinc -) 220 mg PO DAILY [facility] Last Admin: 05/09/18 09:39 Dose: 220 mg - Objective Vital Signs: Vital Signs Temperature 98.3 F 05/09/18 09:30 Pulse Rate 112 H 05/09/18 09:30 Respiratory Rate 16 05/09/18 12:25 Blood Pressure 114/60 05/09/18 09:30 O2 Sat by Pulse Oximetry (%) 95 05/09/18 08:32 Cardiovascular: Yes: S1, S2 Respiratory: Yes: Mechanically Ventilated Gastrointestinal: Yes: Normal Bowel Sounds, Soft Labs: CBC, BMP 05/04/18 08:00 05/03/18 05:50 INR, PTT INR 1.51 (0.83-1.09) H 05/07/18 08:00 Problem List - Problems (1) Sepsis Code(s): A41.9 - SEPSIS, UNSPECIFIED ORGANISM (2) A-fib Code(s): I48.91 - UNSPECIFIED ATRIAL FIBRILLATION Qualifiers: Atrial fibrillation type: chronic Qualified Code(s): I48.2 - Chronic atrial fibrillation (3) CHF (congestive heart failure) Code(s): I50.9 - HEART FAILURE, UNSPECIFIED (4) Pressure ulcer Code(s): L89.90 - PRESSURE ULCER OF UNSPECIFIED SITE, UNSPECIFIED STAGE (5) Respiratory failure Code(s): J96.90 - RESPIRATORY FAILURE, UNSP, UNSP W HYPOXIA OR HYPERCAPNIA Qualifiers: Chronicity: acute Respiratory failure complication: hypoxia and hypercapnia Qualified Code(s): J96.01 - Acute respiratory failure with hypoxia Assessment/Plan - Problems (1) Sepsis Assessment/Plan: patient now DNR/DNI comfort care DNH no blood draws stop all abx awaiting bed at [facility] seen by vascular surgery not a candidate for debridement of sacral wounds seen by ortho for elbow wound not surgical intervention needed frequent turn and position Code(s): A41.9 - SEPSIS, UNSPECIFIED ORGANISM (2) A-fib Assessment/Plan: on coumadin Code(s): I48.91 - UNSPECIFIED ATRIAL FIBRILLATION Qualifiers: Atrial fibrillation type: chronic Qualified Code(s): I48.2 - Chronic atrial fibrillation (3) Chronic respiratory failure Assessment/Plan: vent support assist control not a candidate for weaning nebulizer Code(s): J96.10 - CHRONIC RESPIRATORY FAILURE, UNSP W HYPOXIA OR HYPERCAPNIA Qualifiers: Respiratory failure complication: hypoxia Qualified Code(s): J96.11 - Chronic respiratory failure with hypoxia (4) Dementia Assessment/Plan: sinemet and donezipil Code(s): F03.90 - UNSPECIFIED DEMENTIA WITHOUT BEHAVIORAL DISTURBANCE Qualifiers: Dementia type: Parkinson's disease Dementia behavioral disturbance: with behavioral disturbance Qualified Code(s): G20 - Parkinson's disease (5) Electrolyte abnormality Assessment/Plan: no more blood draws Code(s): E87.8 - OTH DISORDERS OF ELECTROLYTE AND FLUID BALANCE, NEC Assessment/Plan DNR DNI DNH no blood draws
[2018-05-09] MEDS: SCOPOLAMINE HYDROBROMIDE 1 PATCH PATCH.TD72 TD SCH (13:27)
--- NOTE | 2018-05-09 14:20 | PN ---
Progress Note (short form) - Note Progress Note: PULMONARY MINIMALLY RESPONSIVE VSS/AFEBRILE PALE DIMINISHED B/L BS S1S2 BS+ PEG/RECTAL TUBE/GARNICA ANASARCA MICRO/LABS/RADIOGRAPHS/NOTES REVIEWED PSEUDOMANAS IN BLOOD CULTURE POLYMICROBIAL DECUBITI A/P Chronic Respiratory Failure/Vent support Decubitus Ulcer Infection UTI Gram Negative Bacteremia Sepsis Lactic Acidosis LV Diastolic Dysfunction Atrial Fibrillation h/o CVA Parkinsons Dementia - completed antibiotics - inhaled bronchodilators - continue volume assist control - poor candidate for weaning due to mental status - replete lytes - enteral feeds - DVT/GI prophylaxis - awaiting transfer to vent unit Renaldo ROMANO MD
--- NOTE | 2018-05-09 19:55 | PN ---
Progress Note, Physician - Current Medication List Current Medications: Active Medications Acetaminophen (Tylenol Oral Solution -) 650 mg PO Q6H PRN PRN Reason: FEVER Last Admin: 05/06/18 04:03 Dose: 650 mg Amino Acids (Prosource No Carb Liquid Pkt) 30 ml PO BID@0800,1730 [facility] Last Admin: 05/09/18 17:11 Dose: 30 ml Ascorbic Acid (Vitamin C -) 500 mg GT DAILY [facility] Last Admin: 05/09/18 09:32 Dose: 500 mg Calcium Carbonate (Calcium Carb Oral Suspension -) 500 mg PEG BID [facility] Last Admin: 05/09/18 09:37 Dose: 500 mg Carbidopa/Levodopa (Sinemet 25/100 -) 1 each GT BID [facility] Last Admin: 05/09/18 09:32 Dose: 1 each Collagenase (Santyl -) 1 applic TP DAILY [facility]; Protocol Last Admin: 05/09/18 12:36 Dose: 1 applic Donepezil HCl (Aricept -) 10 mg GT HS [facility] Last Admin: 05/08/18 22:03 Dose: 10 mg Fentanyl (Duragesic 50mcg Patch -) 1 patch TD Q72H [facility] Stop: 05/13/18 11:02 Last Admin: 05/09/18 12:44 Dose: 1 patch Ferrous Sulfate (Feosol) 300 mg NGT BID [facility] Last Admin: 05/09/18 09:33 Dose: 300 mg IV Flush (Triple Lumen Flush) 4 ml IVPUSH PRN PRN PRN Reason: Protocol Miscellaneous (Duragesic Patch Waste) 1 each TD PRN PRN PRN Reason: PAIN Last Admin: 05/09/18 12:49 Dose: 1 each Multivitamins/Minerals/Vitamin C (Tab-A-Vit -) 1 tab PO DAILY [facility] Last Admin: 05/09/18 09:32 Dose: 1 tab Potassium Chloride (Potassium Chloride Oral Liquid) 40 meq PO DAILY [facility] Last Admin: 05/09/18 09:33 Dose: 40 meq Ranitidine HCl (Zantac Oral Solution -) 150 mg GT DAILY [facility] Last Admin: 05/09/18 09:38 Dose: 150 mg Scopolamine HBr (Transderm-Scop -) 1 patch TD Q72H [facility] Last Admin: 05/09/18 13:27 Dose: 1 patch Sodium Hypochlorite (Dakin's Solution 0.25% (Half-Strength) -) 1 applic TP DAILY [facility] Last Admin: 05/09/18 12:36 Dose: 1 applic Zinc Sulfate (Orazinc -) 220 mg PO DAILY [facility] Last Admin: 05/09/18 09:39 Dose: 220 mg - Objective Vital Signs: Vital Signs Temperature 98.5 F 05/09/18 18:54 Pulse Rate 112 H 05/09/18 18:54 Respiratory Rate 18 05/09/18 18:54 Blood Pressure 105/59 L 05/09/18 18:54 O2 Sat by Pulse Oximetry (%) 96 05/09/18 09:00 Labs: CBC, BMP 05/04/18 08:00 05/03/18 05:50 INR, PTT INR 1.51 (0.83-1.09) H 05/07/18 08:00
[2018-05-09] MEDS ORDERED: PT OWN MED DRAWER 7, Y5N ONE (21:11)
[2018-05-09] MEDS: DONEPEZIL HCL 10 MG TABLET (FP) GT SCH (21:50)
[2018-05-10] MEDS: AMINO ACIDS/PROTEIN HYDROLYS 30 ML LIQUID.PKT PO SCH ×2 (10:28→17:04)
[2018-05-10] MEDS: POTASSIUM CHLORIDE ORAL LIQUID 20 MEQ/15 ML PO SCH (10:28)
[2018-05-10] MEDS: ASCORBIC ACID 500 MG TABLET (FP) GT SCH (10:28)
[2018-05-10] MEDS: FERROUS SO4 300 MG/5 ML ORAL SOLN UNIT DOSE CUPS NGT SCH ×2 (10:28→21:49)
[2018-05-10] MEDS: MULTIVITAMINS (DAILY MVI) TABLET (FP) PO SCH (10:28)
[2018-05-10] MEDS: RANITIDINE HCL 150 MG/10 ML UNIT-DOSE GT SCH (10:28)
[2018-05-10] MEDS: CARBIDOPA/LEVODOPA 25/100 TABLET (FP) GT SCH ×2 (10:28→21:50)
[2018-05-10] MEDS: ZINC SULFATE 220 MG CAPSULE (FP) PO SCH (10:28)
[2018-05-10] MEDS: CALCIUM CARBONATE SUSPENSION - 500 MG/5 ML ML PEG SCH ×2 (10:29→21:49)
[2018-05-10] MEDS: COLLAGENASE CLOSTRIDIUM HIST. 30 GRAMS TUBE TP SCH (10:47)
[2018-05-10] MEDS: SODIUM HYPOCHLORITE 0.25%- 473 ML BULK BOTTLE TP SCH (10:48)
--- NOTE | 2018-05-10 11:06 | PN ---
Progress Note (short form) - Note Progress Note: PULMONARY Vented, unresponsive. No fevers recorded. Vital Signs Period Temp Pulse Resp BP Sys/Limon Pulse Ox Last 24 Hr 98.3 F-98.5 F 84-128 15- 99-118/59-81 99 Gen: vented, unresponsive Heart: RRR Lung: scattered rhonchi Abd: soft, nontender Ext: + edema CBC, BMP 05/04/18 08:00 05/03/18 05:50 Active Medications Acetaminophen (Tylenol Oral Solution -) 650 mg PO Q6H PRN PRN Reason: FEVER Last Admin: 05/06/18 04:03 Dose: 650 mg Amino Acids (Prosource No Carb Liquid Pkt) 30 ml PO BID@0800,1730 [facility] Last Admin: 05/10/18 10:28 Dose: 30 ml Ascorbic Acid (Vitamin C -) 500 mg GT DAILY [facility] Last Admin: 05/10/18 10:28 Dose: 500 mg Calcium Carbonate (Calcium Carb Oral Suspension -) 500 mg PEG BID [facility] Last Admin: 05/10/18 10:29 Dose: 500 mg Carbidopa/Levodopa (Sinemet 25/100 -) 1 each GT BID [facility] Last Admin: 05/10/18 10:28 Dose: 1 each Collagenase (Santyl -) 1 applic TP DAILY [facility]; Protocol Last Admin: 05/10/18 10:47 Dose: 1 applic Donepezil HCl (Aricept -) 10 mg GT HS [facility] Last Admin: 05/09/18 21:50 Dose: 10 mg Fentanyl (Duragesic 50mcg Patch -) 1 patch TD Q72H [facility] Stop: 05/13/18 11:02 Last Admin: 05/09/18 12:44 Dose: 1 patch Ferrous Sulfate (Feosol) 300 mg NGT BID [facility] Last Admin: 05/10/18 10:28 Dose: 300 mg Miscellaneous (Duragesic Patch Waste) 1 each TD PRN PRN PRN Reason: PAIN Last Admin: 05/09/18 12:49 Dose: 1 each Multivitamins/Minerals/Vitamin C (Tab-A-Vit -) 1 tab PO DAILY [facility] Last Admin: 05/10/18 10:28 Dose: 1 tab Potassium Chloride (Potassium Chloride Oral Liquid) 40 meq PO DAILY [facility] Last Admin: 05/10/18 10:28 Dose: 40 meq Ranitidine HCl (Zantac Oral Solution -) 150 mg GT DAILY [facility] Last Admin: 05/10/18 10:28 Dose: 150 mg Scopolamine HBr (Transderm-Scop -) 1 patch TD Q72H [facility] Last Admin: 05/09/18 13:27 Dose: 1 patch Sodium Hypochlorite (Dakin's Solution 0.25% (Half-Strength) -) 1 applic TP DAILY [facility] Last Admin: 05/10/18 10:48 Dose: 1 applic Zinc Sulfate (Orazinc -) 220 mg PO DAILY [facility] Last Admin: 05/10/18 10:28 Dose: 220 mg A/P Chronic Respiratory Failure Decubitus Ulcer Infection UTI Gram Negative Bacteremia Sepsis Lactic Acidosis LV Diastolic Dysfunction Atrial Fibrillation h/o CVA Parkinsons Dementia - completed antibiotics - inhaled bronchodilators - continue volume assist control - poor candidate for weaning due to mental status - replete lytes - enteral feeds - DVT/GI prophylaxis
--- NOTE | 2018-05-10 11:14 | PN ---
Progress Note, Physician Chief Complaint: patient seen and examined sacral wounds seen no fever non verbal on vent - Current Medication List Current Medications: Active Medications Acetaminophen (Tylenol Oral Solution -) 650 mg PO Q6H PRN PRN Reason: FEVER Last Admin: 05/06/18 04:03 Dose: 650 mg Amino Acids (Prosource No Carb Liquid Pkt) 30 ml PO BID@0800,1730 [facility] Last Admin: 05/10/18 10:28 Dose: 30 ml Ascorbic Acid (Vitamin C -) 500 mg GT DAILY [facility] Last Admin: 05/10/18 10:28 Dose: 500 mg Calcium Carbonate (Calcium Carb Oral Suspension -) 500 mg PEG BID [facility] Last Admin: 05/10/18 10:29 Dose: 500 mg Carbidopa/Levodopa (Sinemet 25/100 -) 1 each GT BID [facility] Last Admin: 05/10/18 10:28 Dose: 1 each Collagenase (Santyl -) 1 applic TP DAILY [facility]; Protocol Last Admin: 05/10/18 10:47 Dose: 1 applic Donepezil HCl (Aricept -) 10 mg GT HS [facility] Last Admin: 05/09/18 21:50 Dose: 10 mg Fentanyl (Duragesic 50mcg Patch -) 1 patch TD Q72H [facility] Stop: 05/13/18 11:02 Last Admin: 05/09/18 12:44 Dose: 1 patch Ferrous Sulfate (Feosol) 300 mg NGT BID [facility] Last Admin: 05/10/18 10:28 Dose: 300 mg Miscellaneous (Duragesic Patch Waste) 1 each TD PRN PRN PRN Reason: PAIN Last Admin: 05/09/18 12:49 Dose: 1 each Multivitamins/Minerals/Vitamin C (Tab-A-Vit -) 1 tab PO DAILY [facility] Last Admin: 05/10/18 10:28 Dose: 1 tab Potassium Chloride (Potassium Chloride Oral Liquid) 40 meq PO DAILY [facility] Last Admin: 05/10/18 10:28 Dose: 40 meq Ranitidine HCl (Zantac Oral Solution -) 150 mg GT DAILY [facility] Last Admin: 05/10/18 10:28 Dose: 150 mg Scopolamine HBr (Transderm-Scop -) 1 patch TD Q72H [facility] Last Admin: 05/09/18 13:27 Dose: 1 patch Sodium Hypochlorite (Dakin's Solution 0.25% (Half-Strength) -) 1 applic TP DAILY [facility] Last Admin: 05/10/18 10:48 Dose: 1 applic Zinc Sulfate (Orazinc -) 220 mg PO DAILY [facility] Last Admin: 05/10/18 10:28 Dose: 220 mg - Objective Vital Signs: Vital Signs Temperature 98.3 F 05/10/18 09:00 Pulse Rate 118 H 05/10/18 09:00 Respiratory Rate 29 H 05/10/18 09:00 Blood Pressure 99/66 05/10/18 09:00 O2 Sat by Pulse Oximetry (%) 99 05/09/18 20:55 Constitutional: Yes: Calm Neck: Yes: Other (trach) Cardiovascular: Yes: Regular Rate and Rhythm, S1, S2 Respiratory: Yes: Mechanically Ventilated Gastrointestinal: Yes: Normal Bowel Sounds, Soft, Other ( g tube) Genitourinary: Yes: Olson Present Edema: Yes Labs: CBC, BMP 05/04/18 08:00 05/03/18 05:50 INR, PTT INR 1.51 (0.83-1.09) H 05/07/18 08:00 Problem List - Problems (1) Sepsis Assessment/Plan: patient now DNR/DNI comfort care DNH no blood draws stop all abx awaiting bed at [facility] seen by vascular surgery not a candidate for debridement of sacral wounds seen by ortho for elbow wound not surgical intervention needed frequent turn and position Code(s): A41.9 - SEPSIS, UNSPECIFIED ORGANISM (2) A-fib Assessment/Plan: on coumadin Code(s): I48.91 - UNSPECIFIED ATRIAL FIBRILLATION Qualifiers: Atrial fibrillation type: chronic Qualified Code(s): I48.2 - Chronic atrial fibrillation (3) Chronic respiratory failure Assessment/Plan: vent support assist control not a candidate for weaning nebulizer Code(s): J96.10 - CHRONIC RESPIRATORY FAILURE, UNSP W HYPOXIA OR HYPERCAPNIA Qualifiers: Respiratory failure complication: hypoxia Qualified Code(s): J96.11 - Chronic respiratory failure with hypoxia (4) Dementia Assessment/Plan: sinemet and donezipil Code(s): F03.90 - UNSPECIFIED DEMENTIA WITHOUT BEHAVIORAL DISTURBANCE Qualifiers: Dementia type: Parkinson's disease Dementia behavioral disturbance: with behavioral disturbance Qualified Code(s): G20 - Parkinson's disease (5) Electrolyte abnormality Code(s): E87.8 - OTH DISORDERS OF ELECTROLYTE AND FLUID BALANCE, NEC Assessment/Plan DNH DNR/DNI no blood draws comfort care
[2018-05-10] MEDS ORDERED: PT OWN MED DRAWER 7, Y5N ONE ×2 (11:35→20:56)
--- NOTE | 2018-05-10 13:17 | PN ---
Progress Note, Physician - Current Medication List Current Medications: Active Medications Acetaminophen (Tylenol Oral Solution -) 650 mg PO Q6H PRN PRN Reason: FEVER Last Admin: 05/06/18 04:03 Dose: 650 mg Amino Acids (Prosource No Carb Liquid Pkt) 30 ml PO BID@0800,1730 [facility] Last Admin: 05/10/18 10:28 Dose: 30 ml Ascorbic Acid (Vitamin C -) 500 mg GT DAILY [facility] Last Admin: 05/10/18 10:28 Dose: 500 mg Calcium Carbonate (Calcium Carb Oral Suspension -) 500 mg PEG BID [facility] Last Admin: 05/10/18 10:29 Dose: 500 mg Carbidopa/Levodopa (Sinemet 25/100 -) 1 each GT BID [facility] Last Admin: 05/10/18 10:28 Dose: 1 each Collagenase (Santyl -) 1 applic TP DAILY [facility]; Protocol Last Admin: 05/10/18 10:47 Dose: 1 applic Donepezil HCl (Aricept -) 10 mg GT HS [facility] Last Admin: 05/09/18 21:50 Dose: 10 mg Fentanyl (Duragesic 50mcg Patch -) 1 patch TD Q72H [facility] Stop: 05/13/18 11:02 Last Admin: 05/09/18 12:44 Dose: 1 patch Ferrous Sulfate (Feosol) 300 mg NGT BID [facility] Last Admin: 05/10/18 10:28 Dose: 300 mg Miscellaneous (Duragesic Patch Waste) 1 each TD PRN PRN PRN Reason: PAIN Last Admin: 05/09/18 12:49 Dose: 1 each Multivitamins/Minerals/Vitamin C (Tab-A-Vit -) 1 tab PO DAILY [facility] Last Admin: 05/10/18 10:28 Dose: 1 tab Potassium Chloride (Potassium Chloride Oral Liquid) 40 meq PO DAILY [facility] Last Admin: 05/10/18 10:28 Dose: 40 meq Ranitidine HCl (Zantac Oral Solution -) 150 mg GT DAILY [facility] Last Admin: 05/10/18 10:28 Dose: 150 mg Scopolamine HBr (Transderm-Scop -) 1 patch TD Q72H [facility] Last Admin: 05/09/18 13:27 Dose: 1 patch Sodium Hypochlorite (Dakin's Solution 0.25% (Half-Strength) -) 1 applic TP DAILY [facility] Last Admin: 05/10/18 10:48 Dose: 1 applic Zinc Sulfate (Orazinc -) 220 mg PO DAILY [facility] Last Admin: 05/10/18 10:28 Dose: 220 mg - Objective Vital Signs: Vital Signs Temperature 98.3 F 05/10/18 09:00 Pulse Rate 118 H 05/10/18 09:00 Respiratory Rate 16 05/10/18 13:03 Blood Pressure 99/66 05/10/18 09:00 O2 Sat by Pulse Oximetry (%) 98 05/10/18 09:00 Labs: CBC, BMP 05/04/18 08:00 05/03/18 05:50 INR, PTT INR 1.51 (0.83-1.09) H 05/07/18 08:00
[2018-05-10] MEDS: DONEPEZIL HCL 10 MG TABLET (FP) GT SCH (21:50)
[2018-05-11] MEDS: AMINO ACIDS/PROTEIN HYDROLYS 30 ML LIQUID.PKT PO SCH ×2 (08:30→17:49)
[2018-05-11] MEDS ORDERED: PT OWN MED DRAWER 7, Y5N ONE ×3 (09:02→20:46)
[2018-05-11] MEDS: RANITIDINE HCL 150 MG/10 ML UNIT-DOSE GT SCH (09:14)
[2018-05-11] MEDS: FERROUS SO4 300 MG/5 ML ORAL SOLN UNIT DOSE CUPS NGT SCH ×2 (09:14→22:16)
[2018-05-11] MEDS: CALCIUM CARBONATE SUSPENSION - 500 MG/5 ML ML PEG SCH ×2 (09:15→22:16)
[2018-05-11] MEDS: ASCORBIC ACID 500 MG TABLET (FP) GT SCH (09:15)
[2018-05-11] MEDS: CARBIDOPA/LEVODOPA 25/100 TABLET (FP) GT SCH ×2 (09:15→22:16)
[2018-05-11] MEDS: MULTIVITAMINS (DAILY MVI) TABLET (FP) PO SCH (09:15)
[2018-05-11] MEDS: ZINC SULFATE 220 MG CAPSULE (FP) PO SCH (09:15)
[2018-05-11] MEDS: POTASSIUM CHLORIDE ORAL LIQUID 20 MEQ/15 ML PO SCH (09:16)
[2018-05-11] MEDS: COLLAGENASE CLOSTRIDIUM HIST. 30 GRAMS TUBE TP SCH (09:24)
--- NOTE | 2018-05-11 10:20 | PN ---
Progress Note (short form) - Note Progress Note: PULMONARY Vented, unresponsive. No fevers recorded. Vital Signs Period Temp Pulse Resp BP Sys/Limon Pulse Ox Last 24 Hr 98.2 F-99.1 F 92-119 12-18 106-119/57-78 Gen: vented, unresponsive Heart: RRR Lung: scattered rhonchi Abd: soft, nontender Ext: + edema CBC, BMP 05/04/18 08:00 05/03/18 05:50 Active Medications Acetaminophen (Tylenol Oral Solution -) 650 mg PO Q6H PRN PRN Reason: FEVER Last Admin: 05/06/18 04:03 Dose: 650 mg Amino Acids (Prosource No Carb Liquid Pkt) 30 ml PO BID@0800,1730 [facility] Last Admin: 05/11/18 08:30 Dose: 30 ml Ascorbic Acid (Vitamin C -) 500 mg GT DAILY [facility] Last Admin: 05/11/18 09:15 Dose: 500 mg Calcium Carbonate (Calcium Carb Oral Suspension -) 500 mg PEG BID [facility] Last Admin: 05/11/18 09:15 Dose: 500 mg Carbidopa/Levodopa (Sinemet 25/100 -) 1 each GT BID [facility] Last Admin: 05/11/18 09:15 Dose: 1 each Collagenase (Santyl -) 1 applic TP DAILY [facility]; Protocol Last Admin: 05/11/18 09:24 Dose: 1 applic Donepezil HCl (Aricept -) 10 mg GT HS [facility] Last Admin: 05/10/18 21:50 Dose: 10 mg Fentanyl (Duragesic 50mcg Patch -) 1 patch TD Q72H [facility] Stop: 05/13/18 11:02 Last Admin: 05/09/18 12:44 Dose: 1 patch Ferrous Sulfate (Feosol) 300 mg NGT BID [facility] Last Admin: 05/11/18 09:14 Dose: 300 mg Miscellaneous (Duragesic Patch Waste) 1 each TD PRN PRN PRN Reason: PAIN Last Admin: 05/09/18 12:49 Dose: 1 each Multivitamins/Minerals/Vitamin C (Tab-A-Vit -) 1 tab PO DAILY [facility] Last Admin: 05/11/18 09:15 Dose: 1 tab Potassium Chloride (Potassium Chloride Oral Liquid) 40 meq PO DAILY [facility] Last Admin: 05/11/18 09:16 Dose: 40 meq Ranitidine HCl (Zantac Oral Solution -) 150 mg GT DAILY [facility] Last Admin: 05/11/18 09:14 Dose: 150 mg Scopolamine HBr (Transderm-Scop -) 1 patch TD Q72H [facility] Last Admin: 05/09/18 13:27 Dose: 1 patch Sodium Hypochlorite (Dakin's Solution 0.25% (Half-Strength) -) 1 applic TP DAILY [facility] Last Admin: 05/10/18 10:48 Dose: 1 applic Zinc Sulfate (Orazinc -) 220 mg PO DAILY [facility] Last Admin: 05/11/18 09:15 Dose: 220 mg A/P Chronic Respiratory Failure Decubitus Ulcer Infection UTI Gram Negative Bacteremia Sepsis Lactic Acidosis LV Diastolic Dysfunction Atrial Fibrillation h/o CVA Parkinsons Dementia - completed antibiotics - inhaled bronchodilators - continue volume assist control - poor candidate for weaning due to mental status - replete lytes - enteral feeds - DVT/GI prophylaxis - d/c planning
[2018-05-11] MEDS: SODIUM HYPOCHLORITE 0.25%- 473 ML BULK BOTTLE TP SCH (12:00)
--- NOTE | 2018-05-11 12:34 | PN ---
Progress Note, Physician - Current Medication List Current Medications: Active Medications Acetaminophen (Tylenol Oral Solution -) 650 mg PO Q6H PRN PRN Reason: FEVER Last Admin: 05/06/18 04:03 Dose: 650 mg Amino Acids (Prosource No Carb Liquid Pkt) 30 ml PO BID@0800,1730 [facility] Last Admin: 05/11/18 08:30 Dose: 30 ml Ascorbic Acid (Vitamin C -) 500 mg GT DAILY [facility] Last Admin: 05/11/18 09:15 Dose: 500 mg Calcium Carbonate (Calcium Carb Oral Suspension -) 500 mg PEG BID [facility] Last Admin: 05/11/18 09:15 Dose: 500 mg Carbidopa/Levodopa (Sinemet 25/100 -) 1 each GT BID [facility] Last Admin: 05/11/18 09:15 Dose: 1 each Collagenase (Santyl -) 1 applic TP DAILY [facility]; Protocol Last Admin: 05/11/18 09:24 Dose: 1 applic Donepezil HCl (Aricept -) 10 mg GT HS [facility] Last Admin: 05/10/18 21:50 Dose: 10 mg Fentanyl (Duragesic 50mcg Patch -) 1 patch TD Q72H [facility] Stop: 05/13/18 11:02 Last Admin: 05/09/18 12:44 Dose: 1 patch Ferrous Sulfate (Feosol) 300 mg NGT BID [facility] Last Admin: 05/11/18 09:14 Dose: 300 mg Miscellaneous (Duragesic Patch Waste) 1 each TD PRN PRN PRN Reason: PAIN Last Admin: 05/09/18 12:49 Dose: 1 each Multivitamins/Minerals/Vitamin C (Tab-A-Vit -) 1 tab PO DAILY [facility] Last Admin: 05/11/18 09:15 Dose: 1 tab Potassium Chloride (Potassium Chloride Oral Liquid) 40 meq PO DAILY [facility] Last Admin: 05/11/18 09:16 Dose: 40 meq Ranitidine HCl (Zantac Oral Solution -) 150 mg GT DAILY [facility] Last Admin: 05/11/18 09:14 Dose: 150 mg Scopolamine HBr (Transderm-Scop -) 1 patch TD Q72H [facility] Last Admin: 05/09/18 13:27 Dose: 1 patch Sodium Hypochlorite (Dakin's Solution 0.25% (Half-Strength) -) 1 applic TP DAILY [facility] Last Admin: 05/10/18 10:48 Dose: 1 applic Zinc Sulfate (Orazinc -) 220 mg PO DAILY [facility] Last Admin: 05/11/18 09:15 Dose: 220 mg - Objective Vital Signs: Vital Signs Temperature 99.0 F 05/11/18 09:25 Pulse Rate 110 H 05/11/18 09:25 Respiratory Rate 15 05/11/18 06:00 Blood Pressure 119/66 05/11/18 09:25 O2 Sat by Pulse Oximetry (%) 98 05/10/18 09:00 Labs: CBC, BMP 05/04/18 08:00 05/03/18 05:50 INR, PTT INR 1.51 (0.83-1.09) H 05/07/18 08:00
--- NOTE | 2018-05-11 14:01 | PN ---
Progress Note, Physician Chief Complaint: patient non verbal on vent awaitng bed at [facility] - Current Medication List Current Medications: Active Medications Acetaminophen (Tylenol Oral Solution -) 650 mg PO Q6H PRN PRN Reason: FEVER Last Admin: 05/06/18 04:03 Dose: 650 mg Amino Acids (Prosource No Carb Liquid Pkt) 30 ml PO BID@0800,1730 [facility] Last Admin: 05/11/18 08:30 Dose: 30 ml Ascorbic Acid (Vitamin C -) 500 mg GT DAILY [facility] Last Admin: 05/11/18 09:15 Dose: 500 mg Calcium Carbonate (Calcium Carb Oral Suspension -) 500 mg PEG BID [facility] Last Admin: 05/11/18 09:15 Dose: 500 mg Carbidopa/Levodopa (Sinemet 25/100 -) 1 each GT BID [facility] Last Admin: 05/11/18 09:15 Dose: 1 each Collagenase (Santyl -) 1 applic TP DAILY [facility]; Protocol Last Admin: 05/11/18 09:24 Dose: 1 applic Donepezil HCl (Aricept -) 10 mg GT HS [facility] Last Admin: 05/10/18 21:50 Dose: 10 mg Fentanyl (Duragesic 50mcg Patch -) 1 patch TD Q72H [facility] Stop: 05/13/18 11:02 Last Admin: 05/09/18 12:44 Dose: 1 patch Ferrous Sulfate (Feosol) 300 mg NGT BID [facility] Last Admin: 05/11/18 09:14 Dose: 300 mg Miscellaneous (Duragesic Patch Waste) 1 each TD PRN PRN PRN Reason: PAIN Last Admin: 05/09/18 12:49 Dose: 1 each Multivitamins/Minerals/Vitamin C (Tab-A-Vit -) 1 tab PO DAILY [facility] Last Admin: 05/11/18 09:15 Dose: 1 tab Potassium Chloride (Potassium Chloride Oral Liquid) 40 meq PO DAILY [facility] Last Admin: 05/11/18 09:16 Dose: 40 meq Ranitidine HCl (Zantac Oral Solution -) 150 mg GT DAILY [facility] Last Admin: 05/11/18 09:14 Dose: 150 mg Scopolamine HBr (Transderm-Scop -) 1 patch TD Q72H [facility] Last Admin: 05/09/18 13:27 Dose: 1 patch Sodium Hypochlorite (Dakin's Solution 0.25% (Half-Strength) -) 1 applic TP DAILY [facility] Last Admin: 05/10/18 10:48 Dose: 1 applic Zinc Sulfate (Orazinc -) 220 mg PO DAILY [facility] Last Admin: 05/11/18 09:15 Dose: 220 mg - Objective Vital Signs: Vital Signs Temperature 99.0 F 05/11/18 09:25 Pulse Rate 110 H 05/11/18 09:25 Respiratory Rate 12 05/11/18 12:43 Blood Pressure 119/66 05/11/18 09:25 O2 Sat by Pulse Oximetry (%) 98 05/10/18 09:00 Constitutional: Yes: Calm Neck: Yes: Other (trach) Cardiovascular: Yes: Regular Rate and Rhythm, S1, S2 Respiratory: Yes: Mechanically Ventilated Gastrointestinal: Yes: Normal Bowel Sounds, Soft, Other (g tube) ...Rectal Exam: Yes: Other Genitourinary: Yes: Olson Present Edema: Yes Labs: CBC, BMP 05/04/18 08:00 05/03/18 05:50 INR, PTT INR 1.51 (0.83-1.09) H 05/07/18 08:00 Problem List - Problems (1) Sepsis Assessment/Plan: patient now DNR/DNI comfort care DNH no blood draws stop all abx awaiting bed at SNF seen by vascular surgery not a candidate for debridement of sacral wounds seen by ortho for elbow wound not surgical intervention needed frequent turn and position Code(s): A41.9 - SEPSIS, UNSPECIFIED ORGANISM (2) A-fib Assessment/Plan: on coumadin Code(s): I48.91 - UNSPECIFIED ATRIAL FIBRILLATION Qualifiers: Atrial fibrillation type: chronic Qualified Code(s): I48.2 - Chronic atrial fibrillation (3) Chronic respiratory failure Assessment/Plan: vent support assist control not a candidate for weaning nebulizer Code(s): J96.10 - CHRONIC RESPIRATORY FAILURE, UNSP W HYPOXIA OR HYPERCAPNIA Qualifiers: Respiratory failure complication: hypoxia Qualified Code(s): J96.11 - Chronic respiratory failure with hypoxia (4) Dementia Assessment/Plan: sinemet and donezipil Code(s): F03.90 - UNSPECIFIED DEMENTIA WITHOUT BEHAVIORAL DISTURBANCE Qualifiers: Dementia type: Parkinson's disease Dementia behavioral disturbance: with behavioral disturbance Qualified Code(s): G20 - Parkinson's disease (5) Electrolyte abnormality Assessment/Plan: no more blood draws comfort care DNH Code(s): E87.8 - OTH DISORDERS OF ELECTROLYTE AND FLUID BALANCE, NEC Assessment/Plan awaitng snf bed DNR/DNI DNH no more blood draws
--- NOTE | 2018-05-11 14:33 | PN ---
Progress Note (short form) - Note Progress Note: spoke to jenniffer she wants to stop feeds today she says that brandt mao has donated his brain to [place] she also deciding about turn off the vent she kathy come tommorow and decide when she wants to do this Problem List - Problems (1) Sepsis Code(s): A41.9 - SEPSIS, UNSPECIFIED ORGANISM (2) A-fib Code(s): I48.91 - UNSPECIFIED ATRIAL FIBRILLATION Qualifiers: Atrial fibrillation type: chronic Qualified Code(s): I48.2 - Chronic atrial fibrillation (3) Chronic respiratory failure Code(s): J96.10 - CHRONIC RESPIRATORY FAILURE, UNSP W HYPOXIA OR HYPERCAPNIA Qualifiers: Respiratory failure complication: hypoxia Qualified Code(s): J96.11 - Chronic respiratory failure with hypoxia (4) Dementia Code(s): F03.90 - UNSPECIFIED DEMENTIA WITHOUT BEHAVIORAL DISTURBANCE Qualifiers: Dementia type: Parkinson's disease Dementia behavioral disturbance: with behavioral disturbance Qualified Code(s): G20 - Parkinson's disease (5) Electrolyte abnormality Code(s): E87.8 - OTH DISORDERS OF ELECTROLYTE AND FLUID BALANCE, NEC
[2018-05-11] MEDS: DONEPEZIL HCL 10 MG TABLET (FP) GT SCH (22:17)
[2018-05-12] MEDS ORDERED: PT OWN MED DRAWER 7, Y5N ONE (09:06)
[2018-05-12] MEDS: FERROUS SO4 300 MG/5 ML ORAL SOLN UNIT DOSE CUPS NGT SCH (09:13)
[2018-05-12] MEDS: POTASSIUM CHLORIDE ORAL LIQUID 20 MEQ/15 ML PO SCH (09:13)
[2018-05-12] MEDS: AMINO ACIDS/PROTEIN HYDROLYS 30 ML LIQUID.PKT PO SCH (09:13)
[2018-05-12] MEDS: ASCORBIC ACID 500 MG TABLET (FP) GT SCH (09:13)
[2018-05-12] MEDS: CARBIDOPA/LEVODOPA 25/100 TABLET (FP) GT SCH ×2 (09:13→22:21)
[2018-05-12] MEDS: ZINC SULFATE 220 MG CAPSULE (FP) PO SCH (09:13)
[2018-05-12] MEDS: MULTIVITAMINS (DAILY MVI) TABLET (FP) PO SCH (09:13)
[2018-05-12] MEDS: RANITIDINE HCL 150 MG/10 ML UNIT-DOSE GT SCH (09:13)
[2018-05-12] MEDS: CALCIUM CARBONATE SUSPENSION - 500 MG/5 ML ML PEG SCH (09:14)
[2018-05-12] MEDS: SODIUM HYPOCHLORITE 0.25%- 473 ML BULK BOTTLE TP SCH (09:16)
[2018-05-12] MEDS: COLLAGENASE CLOSTRIDIUM HIST. 30 GRAMS TUBE TP SCH (09:16)
--- NOTE | 2018-05-12 12:16 | PN ---
Progress Note, Physician - Current Medication List Current Medications: Active Medications Acetaminophen (Tylenol Oral Solution -) 650 mg PO Q6H PRN PRN Reason: FEVER Last Admin: 05/06/18 04:03 Dose: 650 mg Amino Acids (Prosource No Carb Liquid Pkt) 30 ml PO BID@0800,1730 [facility] Last Admin: 05/12/18 09:13 Dose: 30 ml Ascorbic Acid (Vitamin C -) 500 mg GT DAILY [facility] Last Admin: 05/12/18 09:13 Dose: 500 mg Calcium Carbonate (Calcium Carb Oral Suspension -) 500 mg PEG BID [facility] Last Admin: 05/12/18 09:14 Dose: 500 mg Carbidopa/Levodopa (Sinemet 25/100 -) 1 each GT BID [facility] Last Admin: 05/12/18 09:13 Dose: 1 each Collagenase (Santyl -) 1 applic TP DAILY [facility]; Protocol Last Admin: 05/12/18 09:16 Dose: 1 applic Donepezil HCl (Aricept -) 10 mg GT HS [facility] Last Admin: 05/11/18 22:17 Dose: 10 mg Fentanyl (Duragesic 50mcg Patch -) 1 patch TD Q72H [facility] Stop: 05/13/18 11:02 Last Admin: 05/09/18 12:44 Dose: 1 patch Ferrous Sulfate (Feosol) 300 mg NGT BID [facility] Last Admin: 05/12/18 09:13 Dose: 300 mg Miscellaneous (Duragesic Patch Waste) 1 each TD PRN PRN PRN Reason: PAIN Last Admin: 05/09/18 12:49 Dose: 1 each Multivitamins/Minerals/Vitamin C (Tab-A-Vit -) 1 tab PO DAILY [facility] Last Admin: 05/12/18 09:13 Dose: 1 tab Potassium Chloride (Potassium Chloride Oral Liquid) 40 meq PO DAILY [facility] Last Admin: 05/12/18 09:13 Dose: 40 meq Ranitidine HCl (Zantac Oral Solution -) 150 mg GT DAILY [facility] Last Admin: 05/12/18 09:13 Dose: 150 mg Scopolamine HBr (Transderm-Scop -) 1 patch TD Q72H [facility] Last Admin: 05/09/18 13:27 Dose: 1 patch Sodium Hypochlorite (Dakin's Solution 0.25% (Half-Strength) -) 1 applic TP DAILY [facility] Last Admin: 05/12/18 09:16 Dose: 1 applic Zinc Sulfate (Orazinc -) 220 mg PO DAILY [facility] Last Admin: 05/12/18 09:13 Dose: 220 mg - Objective Vital Signs: Vital Signs Temperature 97.7 F 05/12/18 09:35 Pulse Rate 117 H 05/12/18 09:35 Respiratory Rate 15 05/12/18 06:57 Blood Pressure 127/66 05/12/18 09:35 O2 Sat by Pulse Oximetry (%) 99 05/12/18 04:30 Labs: CBC, BMP 05/04/18 08:00 05/03/18 05:50 INR, PTT INR 1.51 (0.83-1.09) H 05/07/18 08:00
[2018-05-12] MEDS: fentaNYL 50mcg/hr PATCH.TD72 TD SCH (12:42)
[2018-05-12] MEDS: SCOPOLAMINE HYDROBROMIDE 1 PATCH PATCH.TD72 TD SCH (12:47)
[2018-05-12] MEDS: FENTANYL PATCH WASTE TD PRN ×2 (12:49→19:32)
--- NOTE | 2018-05-12 15:06 | PN ---
Progress Note, Physician History of Present Illness: PULMONARY NO CHANGE ,POORLY RESPONSIVE ON VENT SUPPORT,AC MODE - Current Medication List Current Medications: Active Medications Acetaminophen (Tylenol Oral Solution -) 650 mg PO Q6H PRN PRN Reason: FEVER Last Admin: 05/06/18 04:03 Dose: 650 mg Amino Acids (Prosource No Carb Liquid Pkt) 30 ml PO BID@0800,1730 [facility] 234 BEDS AT [facility] Last Admin: 05/12/18 09:13 Dose: 30 ml Ascorbic Acid (Vitamin C -) 500 mg GT DAILY [facility] 234 BEDS AT [facility] Last Admin: 05/12/18 09:13 Dose: 500 mg Calcium Carbonate (Calcium Carb Oral Suspension -) 500 mg PEG BID [facility] 234 BEDS AT [facility] Last Admin: 05/12/18 09:14 Dose: 500 mg Carbidopa/Levodopa (Sinemet 25/100 -) 1 each GT BID [facility] 234 BEDS AT [facility] Last Admin: 05/12/18 09:13 Dose: 1 each Collagenase (Santyl -) 1 applic TP DAILY [facility] 234 BEDS AT [facility]; Protocol Last Admin: 05/12/18 09:16 Dose: 1 applic Donepezil HCl (Aricept -) 10 mg GT HS [facility] 234 BEDS AT [facility] Last Admin: 05/11/18 22:17 Dose: 10 mg Fentanyl (Duragesic 50mcg Patch -) 1 patch TD Q72H [facility] 234 BEDS AT [facility] Stop: 05/13/18 11:02 Last Admin: 05/12/18 12:42 Dose: 1 patch Ferrous Sulfate (Feosol) 300 mg NGT BID [facility] 234 BEDS AT [facility] Last Admin: 05/12/18 09:13 Dose: 300 mg Miscellaneous (Duragesic Patch Waste) 1 each TD PRN PRN PRN Reason: PAIN Last Admin: 05/12/18 12:49 Dose: 1 each Multivitamins/Minerals/Vitamin C (Tab-A-Vit -) 1 tab PO DAILY [facility] 234 BEDS AT [facility] Last Admin: 05/12/18 09:13 Dose: 1 tab Potassium Chloride (Potassium Chloride Oral Liquid) 40 meq PO DAILY [facility] 234 BEDS AT [facility] Last Admin: 05/12/18 09:13 Dose: 40 meq Ranitidine HCl (Zantac Oral Solution -) 150 mg GT DAILY [facility] 234 BEDS AT [facility] Last Admin: 05/12/18 09:13 Dose: 150 mg Scopolamine HBr (Transderm-Scop -) 1 patch TD Q72H [facility] 234 BEDS AT [facility] Last Admin: 05/12/18 12:47 Dose: 1 patch Sodium Hypochlorite (Dakin's Solution 0.25% (Half-Strength) -) 1 applic TP DAILY [facility] Last Admin: 05/12/18 09:16 Dose: 1 applic Zinc Sulfate (Orazinc -) 220 mg PO DAILY [facility] Last Admin: 05/12/18 09:13 Dose: 220 mg - Objective Vital Signs: Vital Signs Temperature 98.0 F 05/12/18 14:55 Pulse Rate 114 H 05/12/18 14:55 Respiratory Rate 18 05/12/18 14:55 Blood Pressure 110/61 05/12/18 14:55 O2 Sat by Pulse Oximetry (%) 96 05/12/18 09:00 Constitutional: Yes: Well Nourished, Other (POORLY RESPONSIVE) Eyes: Yes: WNL HENT: Yes: WNL Neck: Yes: Supple (TRACH) Cardiovascular: Yes: Pulse Irregular, S1, S2 Respiratory: Yes: Rhonchi (SCATTERED JARVIS RHONCHI) Gastrointestinal: Yes: Normal Bowel Sounds, Soft Extremities: Yes: WNL Edema: Yes Labs: CBC, BMP Problem List - Problems (1) A-fib Code(s): I48.91 - UNSPECIFIED ATRIAL FIBRILLATION Qualifiers: Atrial fibrillation type: chronic Qualified Code(s): I48.2 - Chronic atrial fibrillation (2) CHF (congestive heart failure) Code(s): I50.9 - HEART FAILURE, UNSPECIFIED (3) Chronic atrial fibrillation Code(s): I48.2 - CHRONIC ATRIAL FIBRILLATION (4) Chronic osteomyelitis Code(s): M86.60 - OTHER CHRONIC OSTEOMYELITIS, UNSPECIFIED SITE (5) Chronic respiratory failure Code(s): J96.10 - CHRONIC RESPIRATORY FAILURE, UNSP W HYPOXIA OR HYPERCAPNIA Qualifiers: Respiratory failure complication: hypoxia Qualified Code(s): J96.11 - Chronic respiratory failure with hypoxia (6) Dementia Code(s): F03.90 - UNSPECIFIED DEMENTIA WITHOUT BEHAVIORAL DISTURBANCE Qualifiers: Dementia type: Parkinson's disease Dementia behavioral disturbance: with behavioral disturbance Qualified Code(s): G20 - Parkinson's disease (7) Hyperlipemia Code(s): E78.5 - HYPERLIPIDEMIA, UNSPECIFIED (8) PEG (percutaneous endoscopic gastrostomy) adjustment/replacement/removal Code(s): Z43.1 - ENCOUNTER FOR ATTENTION TO GASTROSTOMY (9) Parkinson disease Code(s): G20 - PARKINSON'S DISEASE (10) Pleural effusion Code(s): J90 - PLEURAL EFFUSION, NOT ELSEWHERE CLASSIFIED (11) Sacral decubitus ulcer Code(s): L89.159 - PRESSURE ULCER OF SACRAL REGION, UNSPECIFIED STAGE Qualifiers: Qualified Code(s): L89.153 - Pressure ulcer of sacral region, stage 3 (12) Ventilator dependent Code(s): Z99.11 - DEPENDENCE ON RESPIRATOR [VENTILATOR] STATUS (13) Sepsis Code(s): A41.9 - SEPSIS, UNSPECIFIED ORGANISM (14) Sepsis Code(s): A41.9 - SEPSIS, UNSPECIFIED ORGANISM Qualifiers: Sepsis type: sepsis due to unspecified organism Qualified Code(s): A41.9 - Sepsis, unspecified organism (15) Lactate blood increase Code(s): R79.89 - OTHER SPECIFIED ABNORMAL FINDINGS OF BLOOD CHEMISTRY Assessment/Plan IMP CHRONIC RESPIRATORY FAILURE SEPSIS INFECTED DECUBITI CHF AFIB ELEVATED LACTATE LEVEL CORRECTED H/O CVA H/O PARKINSONS PLAN VENT SUPPORT ON AC MODE INHALED BRONCHODILATORS AC F/U CHEST X-RAYS SUPPORTIVE CARE PROGNOSIS POOR DR [place] Problem List - Problems (1) A-fib Code(s): I48.91 - UNSPECIFIED ATRIAL FIBRILLATION Qualifiers: Atrial fibrillation type: chronic Qualified Code(s): I48.2 - Chronic atrial fibrillation (2) CHF (congestive heart failure) Code(s): I50.9 - HEART FAILURE, UNSPECIFIED (3) Chronic atrial fibrillation Code(s): I48.2 - CHRONIC ATRIAL FIBRILLATION (4) Chronic osteomyelitis Code(s): M86.60 - OTHER CHRONIC OSTEOMYELITIS, UNSPECIFIED SITE (5) Chronic respiratory failure Code(s): J96.10 - CHRONIC RESPIRATORY FAILURE, UNSP W HYPOXIA OR HYPERCAPNIA Qualifiers: Respiratory failure complication: hypoxia Qualified Code(s): J96.11 - Chronic respiratory failure with hypoxia (6) Dementia Code(s): F03.90 - UNSPECIFIED DEMENTIA WITHOUT BEHAVIORAL DISTURBANCE Qualifiers: Dementia type: Parkinson's disease Dementia behavioral disturbance: with behavioral disturbance Qualified Code(s): G20 - Parkinson's disease (7) Hyperlipemia Code(s): E78.5 - HYPERLIPIDEMIA, UNSPECIFIED (8) PEG (percutaneous endoscopic gastrostomy) adjustment/replacement/removal Code(s): Z43.1 - ENCOUNTER FOR ATTENTION TO GASTROSTOMY (9) Parkinson disease Code(s): G20 - PARKINSON'S DISEASE (10) Pleural effusion Code(s): J90 - PLEURAL EFFUSION, NOT ELSEWHERE CLASSIFIED (11) Sacral decubitus ulcer Code(s): L89.159 - PRESSURE ULCER OF SACRAL REGION, UNSPECIFIED STAGE Qualifiers: Qualified Code(s): L89.153 - Pressure ulcer of sacral region, stage 3 (12) Ventilator dependent Code(s): Z99.11 - DEPENDENCE ON RESPIRATOR [VENTILATOR] STATUS (13) Sepsis Code(s): A41.9 - SEPSIS, UNSPECIFIED ORGANISM (14) Sepsis Code(s): A41.9 - SEPSIS, UNSPECIFIED ORGANISM (15) Lactate blood increase Code(s): R79.89 - OTHER SPECIFIED ABNORMAL FINDINGS OF BLOOD CHEMISTRY
[2018-05-12] MEDS ORDERED: MORPHINE SULFATE 2 MG/ML VIAL IM ONE (18:30)
[2018-05-12] MEDS ORDERED: MORPHINE SULFATE 2 MG/ML VIAL IM PRN (18:30)
[2018-05-12] MEDS: MORPHINE 100 MG in SODIUM CHLORIDE 98 ML IVPB SCH (19:29)
[2018-05-12] MEDS: DONEPEZIL HCL 10 MG TABLET (FP) GT SCH (22:22)
[2018-05-13] MEDS: POTASSIUM CHLORIDE ORAL LIQUID 20 MEQ/15 ML PO SCH (10:23)
[2018-05-13] MEDS: CARBIDOPA/LEVODOPA 25/100 TABLET (FP) GT SCH ×2 (10:23→21:39)
--- NOTE | 2018-05-13 10:34 | PN ---
Progress Note, Physician Chief Complaint: patient on morphine drip comfort care family decidiing about compasionate weaning - Current Medication List Current Medications: Active Medications Acetaminophen (Tylenol Oral Solution -) 650 mg PO Q6H PRN PRN Reason: FEVER Last Admin: 05/06/18 04:03 Dose: 650 mg Carbidopa/Levodopa (Sinemet 25/100 -) 1 each GT BID [facility] Last Admin: 05/13/18 10:23 Dose: 1 each Donepezil HCl (Aricept -) 10 mg GT HS [facility] Last Admin: 05/12/18 22:22 Dose: 10 mg Morphine Sulfate 100 mg/ (Sodium Chloride) 100 mls @ 1 mls/hr IVPB TITR [facility]; Protocol Last Admin: 05/12/18 19:29 Dose: 1 mg/hr, 1 mls/hr Potassium Chloride (Potassium Chloride Oral Liquid) 40 meq PO DAILY [facility] Last Admin: 05/13/18 10:23 Dose: 40 meq Scopolamine HBr (Transderm-Scop -) 1 patch TD Q72H [facility] Last Admin: 05/12/18 12:47 Dose: 1 patch - Objective Vital Signs: Vital Signs Temperature 97.8 F 05/13/18 06:00 Pulse Rate 113 H 05/13/18 06:00 Respiratory Rate 14 05/13/18 06:33 Blood Pressure 109/73 05/13/18 06:00 O2 Sat by Pulse Oximetry (%) 97 05/12/18 21:00 Constitutional: Yes: Calm Neck: Yes: Other (trach) Cardiovascular: Yes: Regular Rate and Rhythm, S1, S2 Respiratory: Yes: Mechanically Ventilated, Rhonchi Gastrointestinal: Yes: Normal Bowel Sounds, Soft, Other ( g tube) Edema: Yes Labs: CBC, BMP 05/04/18 08:00 05/03/18 05:50 INR, PTT INR 1.51 (0.83-1.09) H 05/07/18 08:00 Problem List - Problems (1) Sepsis Assessment/Plan: patient now DNR/DNI comfort care DNH no blood draws stop all abx seen by vascular surgery not a candidate for debridement of sacral wounds seen by ortho for elbow wound not surgical intervention needed frequent turn and position Code(s): A41.9 - SEPSIS, UNSPECIFIED ORGANISM (2) A-fib Assessment/Plan: stop all medications Code(s): I48.91 - UNSPECIFIED ATRIAL FIBRILLATION Qualifiers: Atrial fibrillation type: chronic Qualified Code(s): I48.2 - Chronic atrial fibrillation (3) Chronic respiratory failure Assessment/Plan: vent support assist control not a candidate for weaning morphine drip Code(s): J96.10 - CHRONIC RESPIRATORY FAILURE, UNSP W HYPOXIA OR HYPERCAPNIA Qualifiers: Respiratory failure complication: hypoxia Qualified Code(s): J96.11 - Chronic respiratory failure with hypoxia (4) Dementia Assessment/Plan: sinemet and donezipil patient wants his brain to be donated to [place] on his Code(s): F03.90 - UNSPECIFIED DEMENTIA WITHOUT BEHAVIORAL DISTURBANCE Qualifiers: Dementia type: Parkinson's disease Dementia behavioral disturbance: with behavioral disturbance Qualified Code(s): G20 - Parkinson's disease (5) Electrolyte abnormality Assessment/Plan: no more blood draws comfort care DNH stop potassium Code(s): E87.8 - OTH DISORDERS OF ELECTROLYTE AND FLUID BALANCE, NEC Assessment/Plan tube feeds stopped medications stopped morphine drip DNR/DNI DNH no more blood draws patient brain to be donated to [place] -
--- NOTE | 2018-05-13 11:32 | PN ---
Progress Note (short form) - Note Progress Note: PULMONARY Vented, unresponsive. On morphine gtt. Vital Signs Period Temp Pulse Resp BP Sys/Limon Pulse Ox Last 24 Hr 97.0 F-98.4 F 112-118 12-118 106-121/60-74 97 Gen: vented, unresponsive Heart: RRR Lung: scattered rhonchi Abd: soft, nontender Ext: + edema CBC, BMP 05/04/18 08:00 05/03/18 05:50 Active Medications Acetaminophen (Tylenol Oral Solution -) 650 mg PO Q6H PRN PRN Reason: FEVER Last Admin: 05/06/18 04:03 Dose: 650 mg Carbidopa/Levodopa (Sinemet 25/100 -) 1 each GT BID [facility] Last Admin: 05/13/18 10:23 Dose: 1 each Donepezil HCl (Aricept -) 10 mg GT HS [facility] Last Admin: 05/12/18 22:22 Dose: 10 mg Morphine Sulfate 100 mg/ (Sodium Chloride) 100 mls @ 1 mls/hr IVPB TITR [facility]; Protocol Last Admin: 05/12/18 19:29 Dose: 1 mg/hr, 1 mls/hr Scopolamine HBr (Transderm-Scop -) 1 patch TD Q72H [facility] Last Admin: 05/12/18 12:47 Dose: 1 patch A/P Chronic Respiratory Failure Decubitus Ulcer Infection UTI Gram Negative Bacteremia Sepsis Lactic Acidosis LV Diastolic Dysfunction Atrial Fibrillation h/o CVA Parkinsons Dementia - continue supportive care - titrate morphine to comfort
--- NOTE | 2018-05-13 13:27 | PN ---
Progress Note, Physician - Current Medication List Current Medications: Active Medications Acetaminophen (Tylenol Oral Solution -) 650 mg PO Q6H PRN PRN Reason: FEVER Last Admin: 05/06/18 04:03 Dose: 650 mg Carbidopa/Levodopa (Sinemet 25/100 -) 1 each GT BID [facility] Last Admin: 05/13/18 10:23 Dose: 1 each Donepezil HCl (Aricept -) 10 mg GT HS [facility] Last Admin: 05/12/18 22:22 Dose: 10 mg Morphine Sulfate 100 mg/ (Sodium Chloride) 100 mls @ 1 mls/hr IVPB TITR [facility]; Protocol Last Admin: 05/12/18 19:29 Dose: 1 mg/hr, 1 mls/hr Scopolamine HBr (Transderm-Scop -) 1 patch TD Q72H [facility] Last Admin: 05/12/18 12:47 Dose: 1 patch - Objective Vital Signs: Vital Signs Temperature 98.2 F 05/13/18 10:00 Pulse Rate 118 H 05/13/18 10:00 Respiratory Rate 14 05/13/18 10:00 Blood Pressure 106/60 05/13/18 10:00 O2 Sat by Pulse Oximetry (%) 99 05/13/18 10:00 Labs: CBC, BMP 05/04/18 08:00 05/03/18 05:50 INR, PTT INR 1.51 (0.83-1.09) H 05/07/18 08:00
[2018-05-13] MEDS: MORPHINE 100 MG in SODIUM CHLORIDE 98 ML IVPB SCH (19:20)
[2018-05-13] MEDS: DONEPEZIL HCL 10 MG TABLET (FP) GT SCH (21:39)
[2018-05-13] MEDS ORDERED: INSULIN (NOVOLOG) ASPART 100 UNITS/ML 10ML VIAL ONE (22:13)
--- NOTE | 2018-05-14 09:33 | PN ---
Progress Note, Physician Chief Complaint: on morphine drip dnr dni comfort care recta l tube dc tube feeds stoppped vent to turn off on thursday - Current Medication List Current Medications: Active Medications Acetaminophen (Tylenol Oral Solution -) 650 mg PO Q6H PRN PRN Reason: FEVER Last Admin: 05/06/18 04:03 Dose: 650 mg Carbidopa/Levodopa (Sinemet 25/100 -) 1 each GT BID [facility] Last Admin: 05/13/18 21:39 Dose: 1 each Donepezil HCl (Aricept -) 10 mg GT HS [facility] Last Admin: 05/13/18 21:39 Dose: 10 mg Morphine Sulfate 100 mg/ (Sodium Chloride) 100 mls @ 1 mls/hr IVPB TITR [facility]; Protocol Last Admin: 05/13/18 19:20 Dose: 1 mg/hr, 1 mls/hr Scopolamine HBr (Transderm-Scop -) 1 patch TD Q72H [facility] Last Admin: 05/12/18 12:47 Dose: 1 patch - Objective Vital Signs: Vital Signs Temperature 97.4 F L 05/14/18 06:00 Pulse Rate 116 H 05/14/18 08:16 Respiratory Rate 16 05/14/18 06:00 Blood Pressure 118/64 05/14/18 06:00 O2 Sat by Pulse Oximetry (%) 98 05/14/18 08:16 Constitutional: Yes: Calm Neck: Yes: Other (tracgh) Cardiovascular: Yes: Regular Rate and Rhythm, S1, S2 Respiratory: Yes: Mechanically Ventilated Gastrointestinal: Yes: Normal Bowel Sounds, Soft, Other ( g tube) Edema: Yes Neurological: Yes: Other (poor responsive non verbal) Labs: CBC, BMP 05/04/18 08:00 05/03/18 05:50 INR, PTT INR 1.51 (0.83-1.09) H 05/07/18 08:00 Problem List - Problems (1) Sepsis Assessment/Plan: patient now DNR/DNI comfort care DNH no blood draws stop all abx seen by vascular surgery not a candidate for debridement of sacral wounds seen by ortho for elbow wound not surgical intervention needed frequent turn and position Code(s): A41.9 - SEPSIS, UNSPECIFIED ORGANISM (2) A-fib Assessment/Plan: stop all medications Code(s): I48.91 - UNSPECIFIED ATRIAL FIBRILLATION Qualifiers: Atrial fibrillation type: chronic Qualified Code(s): I48.2 - Chronic atrial fibrillation (3) Chronic respiratory failure Assessment/Plan: vent support assist control not a candidate for weaning morphine drip plan for compassionate weaning on thursday Code(s): J96.10 - CHRONIC RESPIRATORY FAILURE, UNSP W HYPOXIA OR HYPERCAPNIA Qualifiers: Respiratory failure complication: hypoxia Qualified Code(s): J96.11 - Chronic respiratory failure with hypoxia (4) Dementia Assessment/Plan: sinemet and donezipil patient wants his brain to be donated to [place] on his Code(s): F03.90 - UNSPECIFIED DEMENTIA WITHOUT BEHAVIORAL DISTURBANCE Qualifiers: Dementia type: Parkinson's disease Dementia behavioral disturbance: with behavioral disturbance Qualified Code(s): G20 - Parkinson's disease (5) Electrolyte abnormality Assessment/Plan: no more blood draws comfort care DNH stop potassium Code(s): E87.8 - OTH DISORDERS OF ELECTROLYTE AND FLUID BALANCE, NEC Assessment/Plan tube feeds stopped recta ltube dc medications stopped morphine drip DNR/DNI DNH no more blood draws patient brain to be donated to [place] - compassionate weaning on thursday
[2018-05-14] MEDS: CARBIDOPA/LEVODOPA 25/100 TABLET (FP) GT SCH ×2 (10:55→21:28)
--- NOTE | 2018-05-14 13:27 | PN ---
Progress Note (short form) - Note Progress Note: PULMONARY UNRESPONSIVE/MS DRIP VSS/AFEBRILE PALE DIMINISHED B/L BS S1S2 BS+ SOFT ANASARCA MICRO/LABS/RADIOGRAPHS/NOTES REVIEWED PSEUDOMANAS IN BLOOD CULTURE POLYMICROBIAL DECUBITI A/P Chronic Respiratory Failure/Vent support Decubitus Ulcer Infection UTI Gram Negative Bacteremia Sepsis Lactic Acidosis LV Diastolic Dysfunction Atrial Fibrillation h/o CVA Parkinsons Dementia AGREE WITH COMFORT CARE PLAN IS FOR COMPASSIONATE EXTUBATION ON THURSDAY Renaldo ROMANO MD
[2018-05-14] MEDS: MORPHINE 100 MG in SODIUM CHLORIDE 98 ML IVPB SCH (19:36)
[2018-05-14] MEDS: DONEPEZIL HCL 10 MG TABLET (FP) GT SCH (21:28)
[2018-05-15] MEDS: CARBIDOPA/LEVODOPA 25/100 TABLET (FP) GT SCH ×2 (10:05→22:13)
--- NOTE | 2018-05-15 11:17 | PN ---
Progress Note, Physician Chief Complaint: sepsis History of Present Illness: NAD on mechanical vent Seen by ID afebrile overnight Already evaluated by Vascular surgery- no recommendation for surgical debridement of pressure ulcers at this time Evaluated by Ortho- also recommended no surgical intervention at this time - Current Medication List Current Medications: Active Medications Acetaminophen (Tylenol Oral Solution -) 650 mg PO Q6H PRN PRN Reason: FEVER Last Admin: 05/06/18 04:03 Dose: 650 mg Carbidopa/Levodopa (Sinemet 25/100 -) 1 each GT BID EMMANUEL Last Admin: 05/15/18 10:05 Dose: 1 each Donepezil HCl (Aricept -) 10 mg GT HS EMMANUEL Last Admin: 05/14/18 21:28 Dose: 10 mg Morphine Sulfate 100 mg/ (Sodium Chloride) 100 mls @ 1 mls/hr IVPB TITR EMMANUEL; Protocol Last Admin: 05/14/18 19:36 Dose: 1 mg/hr, 1 mls/hr Scopolamine HBr (Transderm-Scop -) 1 patch TD Q72H EMMANUEL Last Admin: 05/12/18 12:47 Dose: 1 patch - Objective Vital Signs: Vital Signs Temperature 98.2 F 05/15/18 05:54 Pulse Rate 118 H 05/15/18 05:54 Respiratory Rate 13 05/15/18 05:00 Blood Pressure 101/60 05/15/18 05:54 O2 Sat by Pulse Oximetry (%) 98 05/15/18 05:00 Constitutional: Yes: Well Nourished, No Distress, Calm Cardiovascular: Yes: Regular Rate and Rhythm Respiratory: Yes: Mechanically Ventilated Gastrointestinal: Yes: Normal Bowel Sounds, Soft ...Rectal Exam: Yes: Other (rectal tube) Genitourinary: Yes: Olson Present Musculoskeletal: Yes: Muscle Weakness Edema: Yes (generalized) Peripheral Pulses WNL: Yes Neurological: Yes: Pre-Existing Deficit Labs: CBC, BMP 05/04/18 08:00 05/03/18 05:50 INR, PTT INR 1.51 (0.83-1.09) H 05/07/18 08:00 Problem List - Problems (1) Sepsis Assessment/Plan: -compassionate weaning on Thursday Code(s): A41.9 - SEPSIS, UNSPECIFIED ORGANISM (2) Chronic respiratory failure Assessment/Plan: -mechanical vent -Pulmonary on board -Bronchodilators -compassionate weaning on Thursday Code(s): J96.10 - CHRONIC RESPIRATORY FAILURE, UNSP W HYPOXIA OR HYPERCAPNIA Qualifiers: Respiratory failure complication: hypoxia Qualified Code(s): J96.11 - Chronic respiratory failure with hypoxia (3) Pressure ulcer Assessment/Plan: -multiple wounds -2/2 to poor nutritional status Code(s): L89.90 - PRESSURE ULCER OF UNSPECIFIED SITE, UNSPECIFIED STAGE (4) UTI (lower urinary tract infection) Assessment/Plan: -no abx at this time due to comfort care Code(s): N39.0 - URINARY TRACT INFECTION, SITE NOT SPECIFIED (5) Ventilator dependent Assessment/Plan: -compassionate weaning on Thursday Code(s): Z99.11 - DEPENDENCE ON RESPIRATOR [VENTILATOR] STATUS (6) Anemia Assessment/Plan: -chronic -Iron profile low iron % -thyroid profile, B 12, folate unremarkable -stool OB negative -comfort care Code(s): D64.9 - ANEMIA, UNSPECIFIED (7) Generalized edema Assessment/Plan: 2/2 -hypoalbuminemia Code(s): R60.1 - GENERALIZED EDEMA Assessment/Plan see problem list palliative consult on board DNR/DNI Compassionate weaning on Thursday
--- NOTE | 2018-05-15 13:02 | PN ---
Progress Note (short form) - Note Progress Note: Vented, still responsive. No acute events overnight. Intake & Output 05/12/18 05/13/18 05/14/18 05/15/18 23:59 23:59 23:59 23:59 Intake Total 0 136 122 12 Output Total 800 800 700 400 Balance -800 -664 -578 -388 Weight 259 lb 2 oz Last Vital Signs Temp Pulse Resp BP Pulse Ox 98.2 F 118 H 15 101/60 97 05/15/18 05:54 05/15/18 05:54 05/15/18 09:05 05/15/18 05:54 05/15/18 09:00 Active Medications Acetaminophen (Tylenol Oral Solution -) 650 mg PO Q6H PRN PRN Reason: FEVER Last Admin: 05/06/18 04:03 Dose: 650 mg Carbidopa/Levodopa (Sinemet 25/100 -) 1 each GT BID EMMANUEL Last Admin: 05/15/18 10:05 Dose: 1 each Donepezil HCl (Aricept -) 10 mg GT HS EMMANUEL Last Admin: 05/14/18 21:28 Dose: 10 mg Morphine Sulfate 100 mg/ (Sodium Chloride) 100 mls @ 1 mls/hr IVPB TITR EMMANUEL; Protocol Last Admin: 05/14/18 19:36 Dose: 1 mg/hr, 1 mls/hr Scopolamine HBr (Transderm-Scop -) 1 patch TD Q72H EMMANUEL Last Admin: 05/12/18 12:47 Dose: 1 patch Gen: vented, eyes are open Heart: RRR Lung: scattered rhonchi Abd: soft, nontender Ext: + edema A/P Chronic Respiratory Failure Decubitus Ulcer Infection UTI Gram Negative Bacteremia Sepsis Lactic Acidosis LV Diastolic Dysfunction Atrial Fibrillation h/o CVA Parkinsons Dementia - continue supportive care - titrate morphine to comfort Dr Fernandes
[2018-05-15] MEDS ORDERED: PT OWN MED DRAWER 7, Y5N ONE ×3 (15:04→21:04)
[2018-05-15] MEDS: SCOPOLAMINE HYDROBROMIDE 1 PATCH PATCH.TD72 TD SCH (15:06)
--- NOTE | 2018-05-15 15:22 | PN ---
Progress Note, Physician History of Present Illness: vented responds no events - Current Medication List Current Medications: Active Medications Acetaminophen (Tylenol Oral Solution -) 650 mg PO Q6H PRN PRN Reason: FEVER Last Admin: 05/06/18 04:03 Dose: 650 mg Carbidopa/Levodopa (Sinemet 25/100 -) 1 each GT BID EMMANUEL Last Admin: 05/15/18 10:05 Dose: 1 each Donepezil HCl (Aricept -) 10 mg GT HS EMMANUEL Last Admin: 05/14/18 21:28 Dose: 10 mg Morphine Sulfate 100 mg/ (Sodium Chloride) 100 mls @ 1 mls/hr IVPB TITR EMMANUEL; Protocol Last Admin: 05/14/18 19:36 Dose: 1 mg/hr, 1 mls/hr Scopolamine HBr (Transderm-Scop -) 1 patch TD Q72H EMMANUEL Last Admin: 05/15/18 15:06 Dose: 1 patch - Objective Vital Signs: Vital Signs Temperature 97.9 F 05/15/18 14:14 Pulse Rate 119 H 05/15/18 14:14 Respiratory Rate 14 05/15/18 14:14 Blood Pressure 93/45 L 05/15/18 14:14 O2 Sat by Pulse Oximetry (%) 97 05/15/18 09:00 Constitutional: Yes: Other Cardiovascular: Yes: Other Respiratory: Yes: Mechanically Ventilated, Other (trach) Gastrointestinal: Yes: Normal Bowel Sounds, Soft Labs: CBC, BMP 05/04/18 08:00 05/03/18 05:50 INR, PTT INR 1.51 (0.83-1.09) H 05/07/18 08:00 Assessment/Plan Assessment/Plan Problem List - Problems (1) A-fib Code(s): I48.91 - UNSPECIFIED ATRIAL FIBRILLATION Qualifiers: Atrial fibrillation type: chronic Qualified Code(s): I48.2 - Chronic atrial fibrillation (2) CHF (congestive heart failure) Code(s): I50.9 - HEART FAILURE, UNSPECIFIED (3) Chronic atrial fibrillation Code(s): I48.2 - CHRONIC ATRIAL FIBRILLATION (4) Chronic osteomyelitis Code(s): M86.60 - OTHER CHRONIC OSTEOMYELITIS, UNSPECIFIED SITE (5) Chronic respiratory failure Code(s): J96.10 - CHRONIC RESPIRATORY FAILURE, UNSP W HYPOXIA OR HYPERCAPNIA Qualifiers: Respiratory failure complication: hypoxia Qualified Code(s): J96.11 - Chronic respiratory failure with hypoxia (6) Dementia Code(s): F03.90 - UNSPECIFIED DEMENTIA WITHOUT BEHAVIORAL DISTURBANCE Qualifiers: Dementia type: Parkinson's disease Dementia behavioral disturbance: with behavioral disturbance Qualified Code(s): G20 - Parkinson's disease (7) Hyperlipemia Code(s): E78.5 - HYPERLIPIDEMIA, UNSPECIFIED (8) PEG (percutaneous endoscopic gastrostomy) adjustment/replacement/removal Code(s): Z43.1 - ENCOUNTER FOR ATTENTION TO GASTROSTOMY (9) Parkinson disease Code(s): G20 - PARKINSON'S DISEASE (10) Pleural effusion Code(s): J90 - PLEURAL EFFUSION, NOT ELSEWHERE CLASSIFIED (11) Sacral decubitus ulcer Code(s): L89.159 - PRESSURE ULCER OF SACRAL REGION, UNSPECIFIED STAGE Qualifiers: Qualified Code(s): L89.153 - Pressure ulcer of sacral region, stage 3 (12) Ventilator dependent Code(s): Z99.11 - DEPENDENCE ON RESPIRATOR [VENTILATOR] STATUS (13) Sepsis Code(s): A41.9 - SEPSIS, UNSPECIFIED ORGANISM (14) Sepsis Code(s): A41.9 - SEPSIS, UNSPECIFIED ORGANISM (15) Lactate blood increase Code(s): R79.89 - OTHER SPECIFIED ABNORMAL FINDINGS OF BLOOD CHEMISTRY 16 gm negative bacteremia 17 wound infection plan patient on vent awaiting for family continue current mgmgt rest as per the team
[2018-05-15] MEDS: MORPHINE 100 MG in SODIUM CHLORIDE 98 ML IVPB SCH (19:29)
[2018-05-15] MEDS: DONEPEZIL HCL 10 MG TABLET (FP) GT SCH (22:13)
[2018-05-16] MEDS: CARBIDOPA/LEVODOPA 25/100 TABLET (FP) GT SCH ×2 (09:46→21:17)
--- NOTE | 2018-05-16 10:16 | PN ---
Progress Note, Physician Chief Complaint: sepsis History of Present Illness: NAD on mechanical vent Seen by ID afebrile overnight Already evaluated by Vascular surgery- no recommendation for surgical debridement of pressure ulcers at this time Evaluated by Ortho- also recommended no surgical intervention at this time - Current Medication List Current Medications: Active Medications Acetaminophen (Tylenol Oral Solution -) 650 mg PO Q6H PRN PRN Reason: FEVER Last Admin: 05/06/18 04:03 Dose: 650 mg Carbidopa/Levodopa (Sinemet 25/100 -) 1 each GT BID EMMANUEL Last Admin: 05/16/18 09:46 Dose: 1 each Donepezil HCl (Aricept -) 10 mg GT HS EMMANUEL Last Admin: 05/15/18 22:13 Dose: 10 mg Morphine Sulfate 100 mg/ (Sodium Chloride) 100 mls @ 1 mls/hr IVPB TITR EMMANUEL; Protocol Last Admin: 05/15/18 19:29 Dose: 1 mg/hr, 1 mls/hr Scopolamine HBr (Transderm-Scop -) 1 patch TD Q72H EMMANUEL Last Admin: 05/15/18 15:06 Dose: 1 patch - Objective Vital Signs: Vital Signs Temperature 98.3 F 05/16/18 06:00 Pulse Rate 110 H 05/16/18 06:00 Respiratory Rate 12 05/16/18 09:00 Blood Pressure 90/64 05/16/18 06:00 O2 Sat by Pulse Oximetry (%) 97 05/15/18 21:00 Constitutional: Yes: Well Nourished, No Distress, Calm Cardiovascular: Yes: Regular Rate and Rhythm Respiratory: Yes: Mechanically Ventilated, Rhonchi (diffuse) Gastrointestinal: Yes: Normal Bowel Sounds, Soft, Other (rectal tube) Neurological: Yes: Pre-Existing Deficit Labs: CBC, BMP 05/04/18 08:00 05/03/18 05:50 INR, PTT INR 1.51 (0.83-1.09) H 05/07/18 08:00 Problem List - Problems (1) Sepsis Assessment/Plan: -compassionate weaning on Thursday Code(s): A41.9 - SEPSIS, UNSPECIFIED ORGANISM (2) Chronic respiratory failure Assessment/Plan: -mechanical vent -Pulmonary on board -Bronchodilators -compassionate weaning on Thursday Code(s): J96.10 - CHRONIC RESPIRATORY FAILURE, UNSP W HYPOXIA OR HYPERCAPNIA Qualifiers: Respiratory failure complication: hypoxia Qualified Code(s): J96.11 - Chronic respiratory failure with hypoxia (3) Pressure ulcer Assessment/Plan: -multiple wounds -2/2 to poor nutritional status Code(s): L89.90 - PRESSURE ULCER OF UNSPECIFIED SITE, UNSPECIFIED STAGE (4) UTI (lower urinary tract infection) Assessment/Plan: -no abx at this time due to comfort care Code(s): N39.0 - URINARY TRACT INFECTION, SITE NOT SPECIFIED (5) Ventilator dependent Assessment/Plan: -compassionate weaning on Thursday Code(s): Z99.11 - DEPENDENCE ON RESPIRATOR [VENTILATOR] STATUS (6) Anemia Assessment/Plan: -chronic -Iron profile low iron % -thyroid profile, B 12, folate unremarkable -stool OB negative -comfort care Code(s): D64.9 - ANEMIA, UNSPECIFIED (7) Generalized edema Assessment/Plan: 2/2 -hypoalbuminemia Code(s): R60.1 - GENERALIZED EDEMA Assessment/Plan see problem list palliative consult on board DNR/DNI Compassionate weaning on Thursday
--- NOTE | 2018-05-16 12:38 | PN ---
Progress Note (short form) - Note Progress Note: Vented, 30% FiO2. No acute events overnight. Intake & Output 05/13/18 05/14/18 05/15/18 05/16/18 23:59 23:59 23:59 23:59 Intake Total 136 122 128 8 Output Total 800 700 500 250 Balance -664 -578 -372 -242 Last Vital Signs Temp Pulse Resp BP Pulse Ox 98 F 118 H 14 103/61 97 05/16/18 10:00 05/16/18 10:00 05/16/18 10:00 05/16/18 10:00 05/15/18 21:00 Active Medications Acetaminophen (Tylenol Oral Solution -) 650 mg PO Q6H PRN PRN Reason: FEVER Last Admin: 05/06/18 04:03 Dose: 650 mg Carbidopa/Levodopa (Sinemet 25/100 -) 1 each GT BID EMMANUEL Last Admin: 05/16/18 09:46 Dose: 1 each Donepezil HCl (Aricept -) 10 mg GT HS EMMANUEL Last Admin: 05/15/18 22:13 Dose: 10 mg Morphine Sulfate 100 mg/ (Sodium Chloride) 100 mls @ 1 mls/hr IVPB TITR EMMANUEL; Protocol Last Admin: 05/15/18 19:29 Dose: 1 mg/hr, 1 mls/hr Scopolamine HBr (Transderm-Scop -) 1 patch TD Q72H EMMANUEL Last Admin: 05/15/18 15:06 Dose: 1 patch Gen: vented, eyes intermittently open Heart: RRR Lung: scattered rhonchi Abd: soft, nontender Ext: + edema A/P Chronic Respiratory Failure Decubitus Ulcer Infection UTI Gram Negative Bacteremia Sepsis Lactic Acidosis LV Diastolic Dysfunction Atrial Fibrillation h/o CVA Parkinsons Dementia - continue supportive care - titrate morphine to comfort Dr Fernandes
--- NOTE | 2018-05-16 17:02 | PN ---
Progress Note, Physician History of Present Illness: no new issues awake alert - Current Medication List Current Medications: Active Medications Acetaminophen (Tylenol Oral Solution -) 650 mg PO Q6H PRN PRN Reason: FEVER Last Admin: 05/06/18 04:03 Dose: 650 mg Carbidopa/Levodopa (Sinemet 25/100 -) 1 each GT BID EMMANUEL Last Admin: 05/16/18 09:46 Dose: 1 each Donepezil HCl (Aricept -) 10 mg GT HS EMMANUEL Last Admin: 05/15/18 22:13 Dose: 10 mg Morphine Sulfate 100 mg/ (Sodium Chloride) 100 mls @ 1 mls/hr IVPB TITR EMMANUEL; Protocol Last Admin: 05/15/18 19:29 Dose: 1 mg/hr, 1 mls/hr Scopolamine HBr (Transderm-Scop -) 1 patch TD Q72H EMMANUEL Last Admin: 05/15/18 15:06 Dose: 1 patch - Objective Vital Signs: Vital Signs Temperature 98 F 05/16/18 10:00 Pulse Rate 118 H 05/16/18 10:00 Respiratory Rate 17 05/16/18 13:30 Blood Pressure 103/61 05/16/18 10:00 O2 Sat by Pulse Oximetry (%) 97 05/16/18 16:26 Constitutional: Yes: Calm, Other Cardiovascular: Yes: Regular Rate and Rhythm, Other Respiratory: Yes: Mechanically Ventilated, Other Gastrointestinal: Yes: Normal Bowel Sounds, Soft, Other Musculoskeletal: Yes: Other Extremities: Yes: Other Neurological: Yes: Other Labs: CBC, BMP 05/04/18 08:00 05/03/18 05:50 INR, PTT INR 1.51 (0.83-1.09) H 05/07/18 08:00 Assessment/Plan Assessment/Plan Problem List - Problems (1) A-fib Code(s): I48.91 - UNSPECIFIED ATRIAL FIBRILLATION Qualifiers: Atrial fibrillation type: chronic Qualified Code(s): I48.2 - Chronic atrial fibrillation (2) CHF (congestive heart failure) Code(s): I50.9 - HEART FAILURE, UNSPECIFIED (3) Chronic atrial fibrillation Code(s): I48.2 - CHRONIC ATRIAL FIBRILLATION (4) Chronic osteomyelitis Code(s): M86.60 - OTHER CHRONIC OSTEOMYELITIS, UNSPECIFIED SITE (5) Chronic respiratory failure Code(s): J96.10 - CHRONIC RESPIRATORY FAILURE, UNSP W HYPOXIA OR HYPERCAPNIA Qualifiers: Respiratory failure complication: hypoxia Qualified Code(s): J96.11 - Chronic respiratory failure with hypoxia (6) Dementia Code(s): F03.90 - UNSPECIFIED DEMENTIA WITHOUT BEHAVIORAL DISTURBANCE Qualifiers: Dementia type: Parkinson's disease Dementia behavioral disturbance: with behavioral disturbance Qualified Code(s): G20 - Parkinson's disease (7) Hyperlipemia Code(s): E78.5 - HYPERLIPIDEMIA, UNSPECIFIED (8) PEG (percutaneous endoscopic gastrostomy) adjustment/replacement/removal Code(s): Z43.1 - ENCOUNTER FOR ATTENTION TO GASTROSTOMY (9) Parkinson disease Code(s): G20 - PARKINSON'S DISEASE (10) Pleural effusion Code(s): J90 - PLEURAL EFFUSION, NOT ELSEWHERE CLASSIFIED (11) Sacral decubitus ulcer Code(s): L89.159 - PRESSURE ULCER OF SACRAL REGION, UNSPECIFIED STAGE Qualifiers: Qualified Code(s): L89.153 - Pressure ulcer of sacral region, stage 3 (12) Ventilator dependent Code(s): Z99.11 - DEPENDENCE ON RESPIRATOR [VENTILATOR] STATUS (13) Sepsis Code(s): A41.9 - SEPSIS, UNSPECIFIED ORGANISM (14) Sepsis Code(s): A41.9 - SEPSIS, UNSPECIFIED ORGANISM (15) Lactate blood increase Code(s): R79.89 - OTHER SPECIFIED ABNORMAL FINDINGS OF BLOOD CHEMISTRY 16 gm negative bacteremia 17 wound infection plan patient on vent awaiting for family continue current mgmgt rest as per the team
[2018-05-16] MEDS: MORPHINE 100 MG in SODIUM CHLORIDE 98 ML IVPB SCH (19:00)
[2018-05-16] MEDS: DONEPEZIL HCL 10 MG TABLET (FP) GT SCH (21:18)
[2018-05-17 06:09] VITALS: TEMP 98.7
--- NOTE | 2018-05-17 09:46 | PN ---
Progress Note, Physician - Current Medication List Current Medications: Active Medications Acetaminophen (Tylenol Oral Solution -) 650 mg PO Q6H PRN PRN Reason: FEVER Last Admin: 05/06/18 04:03 Dose: 650 mg Carbidopa/Levodopa (Sinemet 25/100 -) 1 each GT BID EMMANUEL Last Admin: 05/16/18 21:17 Dose: 1 each Donepezil HCl (Aricept -) 10 mg GT HS EMMANUEL Last Admin: 05/16/18 21:18 Dose: 10 mg Morphine Sulfate 100 mg/ (Sodium Chloride) 100 mls @ 1 mls/hr IVPB TITR EMMANUEL; Protocol Last Admin: 05/16/18 19:00 Dose: 1 mg/hr, 1 mls/hr Scopolamine HBr (Transderm-Scop -) 1 patch TD Q72H EMMANUEL Last Admin: 05/15/18 15:06 Dose: 1 patch - Objective Vital Signs: Vital Signs Temperature 98.7 F 05/17/18 06:00 Pulse Rate 116 H 05/17/18 08:56 Respiratory Rate 12 05/17/18 08:55 Blood Pressure 101/57 L 05/17/18 06:00 O2 Sat by Pulse Oximetry (%) 98 05/17/18 08:56 Cardiovascular: Yes: S1, S2 Respiratory: Yes: Mechanically Ventilated Labs: CBC, BMP 05/04/18 08:00 05/03/18 05:50 INR, PTT INR 1.51 (0.83-1.09) H 05/07/18 08:00 Problem List - Problems (1) Sepsis Code(s): A41.9 - SEPSIS, UNSPECIFIED ORGANISM (2) A-fib Code(s): I48.91 - UNSPECIFIED ATRIAL FIBRILLATION Qualifiers: Atrial fibrillation type: chronic Qualified Code(s): I48.2 - Chronic atrial fibrillation (3) CHF (congestive heart failure) Code(s): I50.9 - HEART FAILURE, UNSPECIFIED (4) Pressure ulcer Code(s): L89.90 - PRESSURE ULCER OF UNSPECIFIED SITE, UNSPECIFIED STAGE (5) Respiratory failure Code(s): J96.90 - RESPIRATORY FAILURE, UNSP, UNSP W HYPOXIA OR HYPERCAPNIA Qualifiers: Chronicity: acute Respiratory failure complication: hypoxia and hypercapnia Qualified Code(s): J96.01 - Acute respiratory failure with hypoxia Assessment/Plan - Problems (1) Sepsis Assessment/Plan: -compassionate weaning on Thursday Code(s): A41.9 - SEPSIS, UNSPECIFIED ORGANISM (2) Chronic respiratory failure Assessment/Plan: -mechanical vent -Pulmonary on board -Bronchodilators -compassionate weaning Code(s): J96.10 - CHRONIC RESPIRATORY FAILURE, UNSP W HYPOXIA OR HYPERCAPNIA Qualifiers: Respiratory failure complication: hypoxia Qualified Code(s): J96.11 - Chronic respiratory failure with hypoxia (3) Pressure ulcer Assessment/Plan: -multiple wounds -2/2 to poor nutritional status Code(s): L89.90 - PRESSURE ULCER OF UNSPECIFIED SITE, UNSPECIFIED STAGE (4) UTI (lower urinary tract infection) Assessment/Plan: -no abx at this time due to comfort care Code(s): N39.0 - URINARY TRACT INFECTION, SITE NOT SPECIFIED (5) Ventilator dependent Assessment/Plan: -compassionate weaning Code(s): Z99.11 - DEPENDENCE ON RESPIRATOR [VENTILATOR] STATUS (6) Anemia Assessment/Plan: -chronic -Iron profile low iron % -thyroid profile, B 12, folate unremarkable -stool OB negative -comfort care Code(s): D64.9 - ANEMIA, UNSPECIFIED (7) Generalized edema Assessment/Plan: 2/2 -hypoalbuminemia Code(s): R60.1 - GENERALIZED EDEMA Assessment/Plan see problem list palliative consult on board DNR/DNI Compassionate weaning
[2018-05-17] MEDS ORDERED: LORazepam 2 MG/ML SDV VIAL IM PRN (11:48)
[2018-05-17] MEDS ORDERED: morphine SULFATE 4 MG/ML VIAL IVPUSH ONE (12:00)
[2018-05-17] MEDS: CARBIDOPA/LEVODOPA 25/100 TABLET (FP) GT SCH (12:17)
[2018-05-17] MEDS ORDERED: LORazepam 2 MG/ML SDV VIAL IVPUSH PRN (12:31)
[2018-05-17] MEDS: MORPHINE 100 MG in SODIUM CHLORIDE 98 ML IVPB SCH (13:02)
--- NOTE | 2018-05-17 13:02 | PN ---
Progress Note (short form) - Note Progress Note: Liberated from vent. MS drip for comfort. Intake & Output 05/14/18 05/15/18 05/16/18 05/17/18 23:59 23:59 23:59 23:59 Intake Total 122 128 17 0 Output Total 700 500 750 200 Balance -578 -372 -733 -200 Last Vital Signs Temp Pulse Resp BP Pulse Ox 98.7 F 116 H 12 101/57 L 98 05/17/18 06:00 05/17/18 08:56 05/17/18 08:55 05/17/18 06:00 05/17/18 08:56 Active Medications Acetaminophen (Tylenol Oral Solution -) 650 mg PO Q6H PRN PRN Reason: FEVER Last Admin: 05/06/18 04:03 Dose: 650 mg Carbidopa/Levodopa (Sinemet 25/100 -) 1 each GT BID EMMANUEL Last Admin: 05/17/18 12:17 Dose: Not Given Donepezil HCl (Aricept -) 10 mg GT HS EMMANUEL Last Admin: 05/16/18 21:18 Dose: 10 mg Morphine Sulfate 100 mg/ (Sodium Chloride) 100 mls @ 1 mls/hr IVPB TITR EMMANUEL; Protocol Lorazepam (Ativan Injection -) 2 mg IVPUSH Q4H PRN PRN Reason: ANXIETY Scopolamine HBr (Transderm-Scop -) 1 patch TD Q72H EMMANUEL Last Admin: 05/15/18 15:06 Dose: 1 patch Gen: minimally responsive Heart: RRR Lung: scattered rhonchi Abd: soft, nontender Ext: + edema A/P Chronic Respiratory Failure Decubitus Ulcer Infection UTI Gram Negative Bacteremia Sepsis Lactic Acidosis LV Diastolic Dysfunction Atrial Fibrillation h/o CVA Parkinsons Dementia Titrate morphine to comfort Supplemental O2 for comfort For brain donation Dr Fernandes
--- NOTE | 2018-05-17 15:16 | PN ---
Progress Note, Physician - Current Medication List Current Medications: Active Medications Acetaminophen (Tylenol Oral Solution -) 650 mg PO Q6H PRN PRN Reason: FEVER Last Admin: 05/06/18 04:03 Dose: 650 mg Carbidopa/Levodopa (Sinemet 25/100 -) 1 each GT BID EMMANUEL Last Admin: 05/17/18 12:17 Dose: Not Given Donepezil HCl (Aricept -) 10 mg GT HS EMMANUEL Last Admin: 05/16/18 21:18 Dose: 10 mg Morphine Sulfate 100 mg/ (Sodium Chloride) 100 mls @ 1 mls/hr IVPB TITR EMMANUEL; Protocol Last Admin: 05/17/18 13:02 Dose: 1 mg/hr, 1 mls/hr Lorazepam (Ativan Injection -) 2 mg IVPUSH Q4H PRN PRN Reason: ANXIETY Scopolamine HBr (Transderm-Scop -) 1 patch TD Q72H EMMANUEL Last Admin: 05/15/18 15:06 Dose: 1 patch - Objective Vital Signs: Vital Signs Temperature 98.7 F 05/17/18 06:00 Pulse Rate 116 H 05/17/18 08:56 Respiratory Rate 18 05/17/18 13:44 Blood Pressure 101/57 L 05/17/18 06:00 O2 Sat by Pulse Oximetry (%) 98 05/17/18 09:00 Labs: CBC, BMP 05/04/18 08:00 05/03/18 05:50 INR, PTT INR 1.51 (0.83-1.09) H 05/07/18 08:00
[2018-05-18] MEDS: CARBIDOPA/LEVODOPA 25/100 TABLET (FP) GT SCH ×2 (05:25→13:11)
[2018-05-18] MEDS: DONEPEZIL HCL 10 MG TABLET (FP) GT SCH (05:25)
[2018-05-18 13:13] VITALS: BP 95/53; PULSE 125
[2018-05-18] MEDS ORDERED: PT OWN MED DRAWER 7, Y5N ONE (13:27)
--- NOTE | 2018-05-18 13:31 | PN ---
Progress Note, Physician Chief Complaint: patient off the vent morphine drip increased to 2mg on scopolamine patch brain for organ donation - Current Medication List Current Medications: Active Medications Acetaminophen (Tylenol Oral Solution -) 650 mg PO Q6H PRN PRN Reason: FEVER Last Admin: 05/06/18 04:03 Dose: 650 mg Morphine Sulfate 100 mg/ (Sodium Chloride) 100 mls @ 1 mls/hr IVPB TITR EMMANUEL; Protocol Last Admin: 05/17/18 13:02 Dose: 1 mg/hr, 1 mls/hr Lorazepam (Ativan Injection -) 2 mg IVPUSH Q4H PRN PRN Reason: ANXIETY Scopolamine HBr (Transderm-Scop -) 1 patch TD Q72H EMMANUEL Last Admin: 05/15/18 15:06 Dose: 1 patch - Objective Vital Signs: Vital Signs Temperature 98.7 F 05/17/18 06:00 Pulse Rate 125 H 05/18/18 10:00 Respiratory Rate 20 05/18/18 10:00 Blood Pressure 95/53 L 05/18/18 10:00 O2 Sat by Pulse Oximetry (%) 98 05/17/18 21:00 Neck: Yes: Other (trach) Cardiovascular: Yes: Regular Rate and Rhythm, S1, S2 Respiratory: Yes: Rhonchi Gastrointestinal: Yes: Normal Bowel Sounds, Soft Edema: Yes Neurological: Yes: Other (no verbal unresponsive) Labs: CBC, BMP 05/04/18 08:00 05/03/18 05:50 INR, PTT INR 1.51 (0.83-1.09) H 05/07/18 08:00 Problem List - Problems (1) Sepsis Assessment/Plan: patient now DNR/DNI comfort care DNH no blood draws stop all abx tube feeds stoopped off the vent Code(s): A41.9 - SEPSIS, UNSPECIFIED ORGANISM (2) A-fib Assessment/Plan: stop all medications Code(s): I48.91 - UNSPECIFIED ATRIAL FIBRILLATION Qualifiers: Atrial fibrillation type: chronic Qualified Code(s): I48.2 - Chronic atrial fibrillation (3) Chronic respiratory failure Assessment/Plan: off the vent on morphine oxygen Code(s): J96.10 - CHRONIC RESPIRATORY FAILURE, UNSP W HYPOXIA OR HYPERCAPNIA Qualifiers: Respiratory failure complication: hypoxia Qualified Code(s): J96.11 - Chronic respiratory failure with hypoxia (4) Dementia Assessment/Plan: brain for organ donation Code(s): F03.90 - UNSPECIFIED DEMENTIA WITHOUT BEHAVIORAL DISTURBANCE Qualifiers: Dementia type: Parkinson's disease Dementia behavioral disturbance: with behavioral disturbance Qualified Code(s): G20 - Parkinson's disease (5) Electrolyte abnormality Assessment/Plan: no more blood draws comfort care DNH stop potassium Code(s): E87.8 - OTH DISORDERS OF ELECTROLYTE AND FLUID BALANCE, NEC Assessment/Plan tube feeds stopped recta ltube dc medications stopped morphine drip uptitrate DNR/DNI DNH no more blood draws patient brain to be donated to [place] - off the vent on trach collar
[2018-05-18] MEDS: MORPHINE 100 MG in SODIUM CHLORIDE 98 ML IVPB SCH (13:33)
[2018-05-18] MEDS: SCOPOLAMINE HYDROBROMIDE 1 PATCH PATCH.TD72 TD SCH (13:40)
--- NOTE | 2018-05-18 20:59 | HOSP ---
Subjective - Review of Symptoms Events since last encounter: Hospitalist Encounter Notified by the primary RN that the patient is unresponsive The patient is on comfort measures. He has a DNR/DNI Physical Examination Vital Signs: Vital Signs Temperature 98.7 F 05/17/18 06:00 Pulse Rate 125 H 05/18/18 10:00 Respiratory Rate 20 05/18/18 10:00 Blood Pressure 95/53 L 05/18/18 10:00 O2 Sat by Pulse Oximetry (%) 98 05/18/18 09:00 Eyes: Yes: Other (pupils non-reactive and fixed, no corneal reflex) Neck: Yes: Other (trach collar) Cardiovascular: Yes: Other (no apical or palpable pulses) Respiratory: Yes: Other (no spontaneous respirations) Edema: Yes (Anasarca) Edema: LUE: 4+, RUE: 4+, LLE: 3+, RLE: 3+ Peripheral Pulses WNL: No Integumentary: Yes: Other Neurological: Yes: Unresponsive Labs: CBC, BMP 05/04/18 08:00 05/03/18 05:50 Hospitalist Encounter Assessment: This is a 82 y/o man with a PMHx of: Afib (on coumadin), chronic respiratory failure (s/p tracheostomy), CVA, CAD, dementia, parkinson's, COPD, presents from [facility] for numerous ulcers of the upper extremity, lower extremity, and sacrum. Admitted for Sepsis secondary to Stage IV Pressure Ulcers, Ventilator Associated Pneumonia, Chronic Respiratory failure s/p tracheostomy. Patient is a DNR/DNI Patient is on Comfort Measures Patient was pronounced at 20:47 Family at bedside, condolences and support provided Plan: RN to call [facility] and [facility] Patient to be prepared for end of life care, ovi Per RN and patient's spouse, the patient will be transported to the Brain Donation Program at [facility] for brain donation.
== END 2018-05-18 20:47 | disposition expired | DRG 870 ==
LOC: JER 19:16 → JERBED 22:55 → J5S 04-27 06:57
PROVIDERS: ADMIT Internal Medicine; ATTEND Family Medicine
PROC: 5A1955Z Respiratory Ventilation, Greater than 96 Consecutive Hours (ICD-10-PCS; principal; 2018-04-24)
PROC: 3E0G76Z Introduction of Nutritional Substance into Upper GI, Via Natural or Artificial Opening (ICD-10-PCS; 2018-04-24)
DX: A41.52 Sepsis due to Pseudomonas (principal); L89.014 Pressure ulcer of right elbow, stage 4; L89.154 Pressure ulcer of sacral region, stage 4; I69.359 Hemiplegia and hemiparesis following cerebral infarction affecting unspecified side; E87.0 Hyperosmolality and hypernatremia; J96.11 Chronic respiratory failure with hypoxia; Z99.11 Dependence on respirator [ventilator] status; I50.32 Chronic diastolic (congestive) heart failure; E87.2 Acidosis; N39.0 Urinary tract infection, site not specified; M86.60 Other chronic osteomyelitis, unspecified site; J95.851 Ventilator associated pneumonia; Z93.0 Tracheostomy status; I25.10 Atherosclerotic heart disease of native coronary artery without angina pectoris; F03.90 Unspecified dementia, unspecified severity, without behavioral disturbance, psychotic disturbance, mood disturbance, and anxiety; E78.5 Hyperlipidemia, unspecified; G20 Parkinson's disease; F02.80 Dementia in other diseases classified elsewhere, unspecified severity, without behavioral disturbance, psychotic disturbance, mood disturbance, and anxiety; J44.9 Chronic obstructive pulmonary disease, unspecified; G89.29 Other chronic pain; I50.9 Heart failure, unspecified; E66.9 Obesity, unspecified; I48.0 Paroxysmal atrial fibrillation; Z74.01 Bed confinement status; Z93.1 Gastrostomy status; D50.9 Iron deficiency anemia, unspecified; E87.8 Other disorders of electrolyte and fluid balance, not elsewhere classified; R19.7 Diarrhea, unspecified; Z68.37 Body mass index [BMI] 37.0-37.9, adult; Z66 Do not resuscitate; Y83.8 Other surgical procedures as the cause of abnormal reaction of the patient, or of later complication, without mention of misadventure at the time of the procedure
CPT/HCPCS: 36415; 71045-TC-FY; 71250-TC; 80048; 80053; 81003; 81015; 82272; 82607; 82728; 82746; 82803; 83540; 83550; 83605; 83735; 84100; 84439; 84443; 84484; 85025; 85027; 85610; 85651; 85730; 86140; 87040; 87070; 87086; 87186; 87205; 87324; 87449; 87493; 90688; 93005; 93010; 93970-TC; 94003; 94640; 99285-25; G0008; G0480; J0131